=== PATIENT | male | born 1940 | race Caucasian/White ===

== ENCOUNTER 2017-02-13 09:00 | Inpatient (IN) ==
[2017-02-13] MEDS ORDERED: *HR* HYDROmorphone (PF) 1 MG/ML SYRINGE IM ONE (09:28)
[2017-02-13] MEDS ORDERED: Orphenadrine 60 MG/2 ML VIAL IM ONE (09:28)
[2017-02-13] MEDS ORDERED: 0.9 % Sodium Chloride 500 ML IVC ONE (09:30)
[2017-02-13 09:55] LABS: INR 1.1; Prothrombin Time 11.5 Seconds (9.4-12.1)
[2017-02-13 10:00] LABS: Basophils % 0.3 %; Calcium 9.2 mg/dL (8.6-10.8); Eosinophils # 0.2 K/mcL (0.0-0.6); Eosinophils % 2.3 %; Hematocrit 38.5 % (37.5-50.1); Immature Granulocytes % 0.4 % (0-4); Lymphocytes # 1.5 K/mcL (0.6-4.6); Lymphocytes % 19.7 %; Mean Corpuscular HGB Conc 33.8 g/dL (31.6-35.5); Mean Corpuscular Hemoglobin 27.4 pg (28.0-33.3); Mean Corpuscular Volume 81.2 fL (83.0-100.0); Mean Platelet Volume 10.3 fL (9.4-12.4); Monocytes # 0.4 K/mcL (0.0-1.3); Monocytes % 5.1 %; Neutrophils # 5.7 K/mcL (1.6-8.9); Platelet Count 209 K/mcL (140-400); Potassium 3.5 mEq/L (3.5-4.5); Red Blood Count 4.74 M/mcL (4.19-5.50); Red Cell Distribution Width 13.2 % (11.5-14.5); Segmented Neutrophils % 72.2 %
--- NOTE | 2017-02-13 10:00 | Emergency Department Note ---
Disposition Clinical Impression: CKD (chronic kidney disease) stage 4, GFR 15-29 ml/min, Chest pain, radiating, Thoracic back pain Disposition: Admitted As Inpatient Condition: Good Back Pain HPI - General Chief Complaint: ED Back Pain/Injury Stated Complaint: R sided thoracic pain Time Seen by Provider: 02/13/17 09:09 Source: patient Mode of arrival: ambulatory Limitations: no limitations Nursing Notes Reviewed: Yes Vital Signs Reviewed: Yes - History of Present Illness HPI Narrative: Patient presents to the ED with the chief complaint of thoracic back pain. Patient reports that he has a history of high blood pressure, stents, diabetes, enlarged aorta. Reports that for the last 6 days he has had a mid to upper thoracic back pain. States he does not really know how it started, but that it hurts in his chest and also in his back. States his chest feels tight and sharp. He reports that his back feels like "something is pulling apart." States he saw his primary care physician who gave him a "muscle relaxer" that is not helping. Reports that the pain is getting more intense and he cannot take it anymore. Worse when he takes a deep breath and when he lies down and he has been unable to sleep. Denies any fever, chills, shortness of breath, abdominal pain, nausea, vomiting, diarrhea, melena, hematochezia, hematuria, numbness or weakness in his extremities. No headache. States that he wants something strong for pain. - Related Data Home Medications Medication Instructions Recorded Confirmed Amlodipine Besylate 10 mg PO DAILY 04/02/16 02/13/17 Atorvastatin Calcium [Lipitor] 20 mg PO HS 04/02/16 02/13/17 Isosorbide MONOnitrate (24 HR) 30 mg PO DAILY 04/02/16 02/13/17 [Imdur] Metoprolol Succinate 200 mg PO BID 04/02/16 02/13/17 Sitagliptin Phos/Metformin HCl 1 each PO BID 04/02/16 02/13/17 [Janumet 50-1,000 mg Tablet] Buspirone HCl [Buspar] 7.5 mg PO BID 11/12/16 02/13/17 Clopidogrel [Plavix] 75 mg PO DAILY 11/12/16 02/13/17 Gabapentin [Neurontin] 300 mg PO HS 11/12/16 02/13/17 Lisinopril [Zestril] 40 mg PO DAILY 11/12/16 02/13/17 Tramadol HCl [Ultram] 50 mg PO BID PRN 11/12/16 02/13/17 Venlafaxine XR (24 HR) [Effexor Xr] 150 mg PO DAILY 11/12/16 02/13/17 Ferrous Sulfate [Iron] 325 mg PO TIDWM 02/13/17 02/13/17 Tizanidine HCl [Zanaflex] 1 - 2 mg PO Q8HR PRN 02/13/17 02/13/17 Allergies Allergy/AdvReac Type Severity Reaction Status Date / Time No Known Allergies Allergy Verified 11/12/16 09:10 All systems ED: reviewed and negative except as stated. Constitutional: Denies: fever Cardiovascular: Reports: chest pain. Denies: dyspnea on exertion Respiratory: Denies: dyspnea Gastrointestinal: Denies: abdominal pain Musculoskeletal: Reports: back pain. Denies: neck pain Past Medical History - Past Medical History Attestation: Yes The following information was validated with the patient. Source: patient, old records reviewed Medical history: Reports: arthritis, coronary artery disease, diabetes, hypertension, other Surgical history: Reports: orthopedic, other, other Psychiatric history: Reports: anxiety, depression - Social History Smoking Status: Never smoker Smokeless Tobacco Status: No Alcohol use: Reports: occasionally Drug use: Reports: none Physical Exam - General Limitations: no limitations General appearance: alert, in no apparent distress (but does appear uncomfortable ) - Head Head exam: atraumatic, normocephalic, normal inspection - Eye Eye exam: Present: normal appearance, PERRL, EOMI - ENT ENT exam: normal exam, normal oropharynx, mucous membranes moist - Neck Neck exam: Present: normal inspection, full ROM, trachea midline. Absent: tenderness - Chest Chest inspection: Present: normal inspection, symmetric chest wall rise. Absent : tenderness - Respiratory Respiratory exam: Present: normal lung sounds bilaterally - Cardiovascular Cardiovascular exam: Present: regular rate, normal rhythm, normal heart sounds - Abdominal Exam Abdominal exam: Present: soft, Non-Tender. Absent: tenderness, distention, guarding, rebound, rigidity - Extremities Exam Extremities exam: Present: normal inspection, full ROM. Absent: tenderness, pedal edema - Expanded Lower Extremity Exam Hip/Pelvis exam: Present: pelvis stable - Back Exam Back exam: Present: normal inspection, full ROM, other (Patient reports tenderness in the midthoracic region, but is nonreproducible on exam and states that is not the same pain that he is feeling and that he feels like it is inside of him). Absent: tenderness - Neurological Exam Neurological exam: Present: alert, oriented X3 - Psychiatric Psychiatric exam: Present: normal affect, normal mood - Skin Skin exam: Present: warm, dry, intact, normal color Course Vital Signs Temperature 97.9 F 02/13/17 09:03 Pulse Rate 63 02/13/17 09:03 Respiratory Rate 18 02/13/17 09:03 Blood Pressure 187/84 02/13/17 09:03 O2 Sat by Pulse Oximetry 99 02/13/17 09:03 Temperature 99.6 F 02/14/17 03:35 Pulse Rate 65 02/14/17 03:35 Respiratory Rate 18 02/14/17 03:35 Blood Pressure 187/90 02/14/17 03:35 O2 Sat by Pulse Oximetry 95 02/14/17 03:35 Oxygen Delivery Oxygen Delivery Room Air Back Pain/Injury - Medical Records Medical records reviewed: Yes I reviewed the patient's medical records. - Lab Data Lab results reviewed: Yes I reviewed the patient's lab results. Result diagrams: 02/14/17 00:32 02/14/17 00:32 Lab Results 02/13/17 02/13/17 02/13/17 Range/Units 09:39 09:39 09:39 WBC (4.3-11.1) K/mcL RBC (4.19-5.50) M/mcL Hgb (12.9-16.9) g/dL Hct (37.5-50.1) % MCV (83.0-100.0) fL MCH (28.0-33.3) pg MCHC (31.6-35.5) g/dL RDW (11.5-14.5) % Plt Count (140-400) K/mcL MPV (9.4-12.4) fL Immature Gran % (0-4) % Seg Neutrophils % % Lymphocytes % % Monocytes % % Eosinophils % % Basophils % % Neutrophils # (1.6-8.9) K/mcL Lymphocytes # (0.6-4.6) K/mcL Monocytes # (0.0-1.3) K/mcL Eosinophils # (0.0-0.6) K/mcL Basophils # (0.0-0.2) K/mcL PT 11.5 (9.4-12.1) Seconds INR 1.1 APTT 27.0 (26.0-36.0) Seconds Sodium (136-145) mEq/L Potassium (3.5-4.5) mEq/L Chloride (98-109) mEq/L Carbon Dioxide (19-29) mEq/L BUN (8-26) mg/dL Creatinine (0.72-1.25) mg/dL Est GFR ( Amer) (> 60) Est GFR (Non-Af Amer) (> 60) BUN/Creatinine Ratio (6-26) Glucose (70-99) mg/dL Calculated Osmolality (280-300) Calcium (8.6-10.8) mg/dL Troponin I (0-0.03) ng/mL B-Natriuretic Peptide 890 H (0-100) pg/mL Lipase 26 (8-78) Units/L 02/13/17 02/13/17 02/13/17 Range/Units 09:39 09:39 09:39 WBC 7.8 (4.3-11.1) K/mcL RBC 4.74 (4.19-5.50) M/mcL Hgb 13.0 (12.9-16.9) g/dL Hct 38.5 (37.5-50.1) % MCV 81.2 L (83.0-100.0) fL MCH 27.4 L (28.0-33.3) pg MCHC 33.8 (31.6-35.5) g/dL RDW 13.2 (11.5-14.5) % Plt Count 209 (140-400) K/mcL MPV 10.3 (9.4-12.4) fL Immature Gran % 0.4 (0-4) % Seg Neutrophils % 72.2 % Lymphocytes % 19.7 % Monocytes % 5.1 % Eosinophils % 2.3 % Basophils % 0.3 % Neutrophils # 5.7 (1.6-8.9) K/mcL Lymphocytes # 1.5 (0.6-4.6) K/mcL Monocytes # 0.4 (0.0-1.3) K/mcL Eosinophils # 0.2 (0.0-0.6) K/mcL Basophils # 0.0 (0.0-0.2) K/mcL PT (9.4-12.1) Seconds INR APTT (26.0-36.0) Seconds Sodium 136 (136-145) mEq/L Potassium 3.5 (3.5-4.5) mEq/L Chloride 101 (98-109) mEq/L Carbon Dioxide 24 (19-29) mEq/L BUN 21 (8-26) mg/dL Creatinine 2.40 H (0.72-1.25) mg/dL Est GFR ( Amer) 32 L (> 60) Est GFR (Non-Af Amer) 27 L (> 60) BUN/Creatinine Ratio 9 (6-26) Glucose 261 H (70-99) mg/dL Calculated Osmolality 294 (280-300) Calcium 9.2 (8.6-10.8) mg/dL Troponin I 0.02 (0-0.03) ng/mL B-Natriuretic Peptide (0-100) pg/mL Lipase (8-78) Units/L - Radiology Data Radiology results reviewed: Yes I reviewed the patient's radiology results. Chest X-Ray 02/13/17 09:30 IMPRESSION: No acute cardiopulmonary abnormality detected. D/ / Matt Aldrich MD / Matt Aldrich MD Interpreting Provider: Matt Aldrich MD - EKG Data EKG attestation: Yes I reviewed and interpreted this EKG. EKG results narrative: Sinus bradycardia, rate 57, IL interval 156, QRS 112, QTC 427, no acute ischemic changes, but he does have T-wave inversions laterally that are new from previous last year. Attestation Statement - Attestation Attestation: I, Tapan Hernandez, examined this patient and my medical decision-making was reviewed with the [employer]/PA/Advanced Practice Nurse/Resident Physician. I agree with the documented findings, disposition and treatment plan as described except to the extent set forth below. 76-year-old male presents to the emergency department with concerns of chest pain radiating to his back. Patient states the pain has been present for the past few days. He visited his primary care doctor who gave him a muscle relaxer which did not help the pain. Patient states he is unable find position of comfort although it is worse with movement. Patient denies palpitations or near syncopal symptoms. Initial troponin negative. CTA obtained to rule out aortic dissection which was negative however he does have a abdominal aortic Aneurysm measuring 3.8 cm however this is not likely the cause of his symptoms. Patient denies fever, chills, nausea, vomiting, diarrhea. Patient will be admitted to the hospital for further care and evaluation of his chest pain to rule out ACS.
[2017-02-13] MEDS ORDERED: 0.9 % Sodium Chloride 1,000 ML IVC ONE (10:07)
[2017-02-13] MEDS ORDERED: Furosemide 40 MG/4 ML VIAL IVP ONE (12:02)
[2017-02-13] MEDS ORDERED: Nitroglycerin 0.4 MG TAB.SUBL SL PRN (12:03)
[2017-02-13] MEDS ORDERED: Dextrose Gel 15 GM PO PRN ×2 (12:44)
[2017-02-13] MEDS ORDERED: D5% in Water 1,000 ML IVC PRN (12:44)
[2017-02-13] MEDS ORDERED: *HR* Dextrose 50 % in Water (Syg) 50 ML SYRINGE IVP PRN (12:44)
[2017-02-13] MEDS ORDERED: Aspirin Enteric Coated 325 MG Tablet PO SCH (12:45)
[2017-02-13] MEDS ORDERED: Ondansetron 4 MG/2 ML VIAL IVP PRN (13:25)
[2017-02-13] MEDS ORDERED: *HR* HYDROmorphone (PF) 1 MG/ML SYRINGE IVP PRN (13:25)
[2017-02-13] MEDS ORDERED: Naloxone 0.4 MG/ML INJ IVP PRN (13:25)
--- NOTE | 2017-02-13 13:53 | Internal Med History&Physical ---
<SaraiJustice Nunez - Last Filed: 02/13/17 14:41> Date of Encounter: 02/13/17 Time of Encounter: 12:00 Assessment and Plan (1) Chest pain, radiating Current visit: Yes Status: Acute Patient presents with acute chest pain that he states radiates to his back. He states at times his chest feels tight with radiation to back and pain becomes worse when laying flat. Mr. Pinon reports seeing his PCP who prescribed muscle relaxers for the problem which he states did not help. Patient also has a history of placement of 2 stents and an enlarged aorta. CTA of the chest/ abdomen/pelvis today shows no acute process, no acute pulmonary emboli in the central arteries, distal pulmonary arterial branches are suboptimally enhanced. There is a 3.8 cm abdominal aortic aneurysm minimally changed compared to prior study. Left hydroureteronephrosis which may be secondary to a recently passed stone or reflux related to bladder distention. Patient's previous cardiac testing was >1 year ago. Initial troponin 0.02. Will trend x2. Echocardiogram ordered. Continuous cardiac telemetry ordered. Patient to be NPO at midnight for nuclear stress testing tomorrow. TSH ordered. (2) CAD (coronary artery disease) Current visit: Yes Status: Chronic Patient presents with history of CAD and report of two stents placed >10 years ago. Patient reports current chest pain that radiates to his back. Echocardiogram ordered. Patient placed on continuous cardiac telemetry. Will continue patient's HTN and HLD medications and administer aspirin therapy daily. Continue Plavix. Qualifiers: Coronary Disease-Associated Artery/Lesion type: unspecified vessel or lesion type [place] vs. transplanted heart: [place] heart Associated angina: without angina Qualified Code(s): I25.10 - Atherosclerotic heart disease of [place] coronary artery without angina pectoris (3) Diabetes Current visit: Yes Status: Chronic Patient presents with history of chronic diabetes controlled with oral antihyperglycemic medications. Will hold patient's oral medication and administer low-dose correction insulin sliding scale and hypoglycemic protocol. Blood glucose monitoring before meals at bedtime. A1c ordered in a.m. labs. 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 Will monitor patient and vital signs and continue patient's Imdur, lisinopril, metoprolol, and amlodipine. Qualifiers: Hypertension type: essential hypertension Qualified Code(s): I10 - Essential (primary) hypertension (5) HLD (hyperlipidemia) Current visit: Yes Status: Chronic Patient presents with history of chronic hyperlipidemia. Lipid panel ordered and will continue patient's Lipitor. Qualifiers: Hyperlipidemia type: pure hypercholesterolemia Qualified Code(s): E78.00 - Pure hypercholesterolemia, unspecified; E78.0 - Pure hypercholesterolemia (6) CKD (chronic kidney disease) stage 4, GFR 15-29 ml/min Current visit: Yes Status: Chronic Patient presents with chronic kidney disease, stage IV with current GFR of 27. Will use IV fluids judiciously if warranted. Monitor I&O and daily weight. Renal diet ordered. Will hold patient's meloxicam and other NSAIDs/nephrotoxic agents. Follow-up labs ordered to monitor patient's renal status. (7) Melanoma Current visit: Yes Status: Resolved Patient presents with resolved melanoma of the lower left arm. Patient had several lumps removed from arm and is due to have stitches removed on Wednesday. Samples sent off for biopsy. Patient also has previous hx of melanoma of the left ear. Patient to follow-up with provider. 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 Patient and state that he no longer uses the drug and wants to avoid it. Will not administer oxycodone or hydrocodone for pain. (9) DVT prophylaxis Current visit: Yes Status: Acute Patient to be placed on DVT prophylaxis due to current admission protocol and bed rest status. Heparin 5,000 units SQ Q8 ordered. Internal Medicine - H&P: HPI Chief complaint: Back pain/Chest pain Admitted From: Emergency Dept Plans for Post Hospital Care: Home History of present illness: Mr. Esquivel is a 76 year old male with medical history of arthritis, CAD, diabetes controlled with oral anti-hyperglycemics, HTN, and melanoma presents from the ED with chief complaint of pain radiating from his chest to mid to upper thoracic back. He states at times his chest feels tight with radiation to back and pain becomes worse when laying flat. Mr. Pinon reports seeing his PCP who prescribed muscle relaxers for the problem which he states did not help. Patient also has a history of placement of 2 stents and an enlarged aorta. CTA of the chest/abdomen/pelvis today shows no acute process, no acute pulmonary emboli in the central arteries, distal pulmonary arterial branches are suboptimally enhanced. There is a 3.8 cm abdominal aortic aneurysm minimally changed compared to prior study. Left hydroureteronephrosis which may be secondary to a recently passed stone or reflux related to bladder distention. Patient denies recent illness, nausea, vomiting, chills, fever, abdominal pain, shortness of breath, diarrhea, constipation, unusual bleeding, numbness, weakness, headache, lightheadedness, dizziness, presyncope, or syncope. On admission to ED, patient's vital signs include temperature of 97.9F , heart rate of 59, respiratory rate of 18, BP of 138/95, SPO2 99% on room air. Abnormal labs include BNP of 890, creatinine of 2.4, GFR 27, glucose of 261. Initial troponin 0.02. On examination, patient is bradycardic lungs are clear bilaterally auscultation. There is no pedal edema present bilaterally. Patient is hemodynamically stable reports no acute distress. Information taken from patient, patient's family, chart review, medical records and previous imaging. Mr. Esquivel is at high risk for cardiac event based on current symptoms, history, and risk factors and will be placed as observation status. Time spent with patient and family > 40 minutes. Past Med Surg Social Fam HX - Past Medical History Source: patient, old records reviewed Medical history: arthritis, cancer (Melanoma), coronary artery disease, diabetes , hypertension, other Psychiatric history: anxiety, depression - Past Surgical History Surgical History: cancer surgery (Melanoma removal on left arm), orthopedic, other (Back, Right hand (finger removed)), other - Social History Smoking Status: Former smoker Packs per day: 3 cigarettes daily - Reports quitting >18 years ago Smokeless Tobacco Status: No Alcohol use: occasionally Drug use: none Current living situation: Home, With Family Activity Level: Independent ambulation Recent Out of Country Travel Within the Last 8 Weeks: No Exposure or Possible Exposure to Illness During Travel: No - Family History Father Race: Family Member Ethnicity: Non- Living Status: Age at : 60 Cause of : ID Hx Family Cardiac Disorders: Yes (ID, CAD, HTN) Mother Race: Family Member Ethnicity: Non- Living Status: Age at : 72 Cause of : Breast cancer Hx Family Cancer: Yes (Breast) Brother History Unknown: Yes Race: Family Member Ethnicity: Non- Living Status: Still Living Sister Race: Family Member Ethnicity: Non- Living Status: Still Living Hx Family Endocrine Disorder: Yes (DM) Hx Family Musculoskeletal Disorders: Yes (Arthritis) Internal Medicine - H&P: Meds Amlodipine Besylate 10 mg PO DAILY 04/02/16 [History] Atorvastatin Calcium [Lipitor] 20 mg PO HS 04/02/16 [History] Isosorbide MONOnitrate (24 HR) [Imdur] 30 mg PO DAILY 04/02/16 [History] Metoprolol Succinate 200 mg PO BID 04/02/16 [History] Sitagliptin Phos/Metformin HCl [Janumet 50-1,000 mg Tablet] 1 each PO BID [History] Buspirone HCl [Buspar] 7.5 mg PO BID 11/12/16 [History] Clopidogrel [Plavix] 75 mg PO DAILY 11/12/16 [History] Gabapentin [Neurontin] 300 mg PO HS 11/12/16 [History] Lisinopril [Zestril] 40 mg PO DAILY 11/12/16 [History] Tramadol HCl [Ultram] 50 mg PO BID PRN 11/12/16 [History] Venlafaxine XR (24 HR) [Effexor Xr] 150 mg PO DAILY 11/12/16 [History] Ferrous Sulfate [Iron] 325 mg PO TIDWM 02/13/17 [History] Tizanidine HCl [Zanaflex] 1 - 2 mg PO Q8HR PRN 02/13/17 [History] 3 Allergy/AdvReac Type Severity Reaction Status Date / Time No Known Allergies Allergy Verified 11/12/16 09:10 All Systems PM: A 10-system review of systems was performed and is negative for pertinent findings except as documented above in the HPI. - Constitutional Constitutional: no chills, no fever(s), no night sweats - EENT Eyes: no change in vision, no discharge, no pain, no photophobia Ears: no ear discharge, no ear pain, no tinnitus Nose, mouth and throat: no dysphagia, no nasal discharge, no neck pain, no sore throat - Breasts Breasts: as per HPI - Cardiovascular Cardiovascular ROS IM: as per HPI, chest pain, irregular heart rhythm ( Bradycardia) - Respiratory Respiratory: no cough, no dyspnea, no wheezing, no excessive phlegm production - Gastrointestinal Gastrointestinal: no abdominal pain, no diarrhea, no hematemesis, no hematochezia, no melena, no nausea, no vomiting - Genitourinary Genitourinary ROS male: as per HPI - Musculoskeletal Musculoskeletal ROS IM: as per HPI, back pain - Integumentary Integumentary IM: no rash, no unusual bruising - Neurological Neurological ROS: no confusion, no convulsions, no focal weakness, no numbness, no tingling, no tremor(s) - Psychiatric Psychiatric: as per HPI - Endocrine Endocrine IM: as per HPI - Hematologic/Lymphatic Hematologic/Lymphatic: no easy bruising - Allergic/Immunologic Allergic/Immunologic: as per HPI - Constitutional Vitals: Temp Pulse Resp BP Pulse Ox 97.9 F 55 18 124/86 96 02/13/17 09:03 02/13/17 12:51 02/13/17 12:57 02/13/17 12:57 02/13/17 12:51 General appearance: Present: cooperative, A&O X 3, pleasant, no acute distress, obese, answers questions appropriately - Head Head exam: Present: atraumatic, normocephalic - Eye Eye exam: Present: PERRL, conjuntiva pink, sclera anicteric Pupils: Present: PERRL - ENT ENT exam: Present: normal exam, normal external ear exam - Neck Neck exam general surgery: Present: normal inspection, supple, trachea midline. Absent: lymphadenopathy - Respiratory Respiratory exam: Present: CTAB. Absent: accessory muscle use, rales, rhonchi, wheezes - Cardiovascular Cardiovascular exam: Present: bradycardia, RRR, +S1, +S2. Absent: diastolic murmur, gallop, rubs, systolic murmur - GI/Abdominal GI/Abdominal exam: Present: normal bowel sounds, soft, no peritoneal signs. Absent: distended, tenderness - Rectal Rectal exam: Present: deferred - Additional comments: exam deferred. - Extremities Exam Extremities exam: Present: warm, radial pulses palpable and symmetrical. Absent : calf tenderness, cyanotic, pedal edema - Back Exam Back exam: Present: normal inspection - Neurological Exam Neurological exam: Present: CN II-XII intact, oriented X3, no focal deficits. Absent: pronater drift, facial droop, speech deficit - Psychiatric Psychiatric exam: Present: normal affect, normal mood - Skin Skin exam: Present: dry, erythema (Mild erythema of melanoma surgical site on left arm), intact Internal Med - H&P Results - Labs CBC & Chem 7: 02/13/17 09:39 02/13/17 09:39 - EKG Data EKG shows normal: sinus rhythm Rate: bradycardia - EKG Data Prior EKG available for review: yes Interpretation IM: suggestive of ischemia EKG comments: 02/13/17 14:08 EKG dated 03/24/16 shows sinus rhythm with voltage criteria for LVH, nonspecific T-wave abnormality.. EKG dated 02/13/17 shows sinus bradycardia with moderate intraventricular conduction delay, ST deviation and moderate T-wave abnormality. Consider lateral ischemia. - Diagnostic Studies Chest x-ray Additional comments: Impressions Chest X-Ray 02/13/17 09:30 IMPRESSION: No acute cardiopulmonary abnormality detected. D/ / Matt Aldrich MD / Matt Aldrich MD Interpreting Provider: Matt Aldrich MD Other Images Additional comments: Impressions Abdomen/Pelvis CTA 02/13/17 09:35 IMPRESSION: 1. No acute process. No acute pulmonary emboli in the central arteries. Distal pulmonary arterial branches are suboptimally enhanced. 2. There is a 3.8 cm abdominal aortic aneurysm, minimally changed compared to prior study. See recommendations below for follow-up. 3. Left hydroureteronephrosis which may be secondary to a recently passed stone or reflux related to bladder distention. RECOMMENDATIONS: Managing Abdominal Aortic Aneurysms 3.5-3.9 cm: Every 1 year. Reference: J Vasc Surg. 2009 Feb;50(4 Suppl):S2-49 D/ / Judson Murcia MD / Judson Murcia MD Interpreting Provider: Judson Murcia MD Chest CTA 02/13/17 09:35 IMPRESSION: 1. No acute process. No acute pulmonary emboli in the central arteries. Distal pulmonary arterial branches are suboptimally enhanced. 2. There is a 3.8 cm abdominal aortic aneurysm, minimally changed compared to prior study. See recommendations below for follow-up. 3. Left hydroureteronephrosis which may be secondary to a recently passed stone or reflux related to bladder distention. RECOMMENDATIONS: Managing Abdominal Aortic Aneurysms 3.5-3.9 cm: Every 1 year. Reference: J Vasc Surg. 200850(4 Suppl):S2-49 D/ / Judson Murcia MD / Judson Murcia MD Interpreting Provider: Judson Murcia MD <Luc Curry - Last Filed: 02/13/17 21:16> Date of Encounter: 02/13/17 Internal Medicine - H&P: HPI History of present illness: Mr. Esquivel is a 76 year old male All Systems PM: A 10-system review of systems was performed and is negative for pertinent findings except as documented above in the HPI. - Constitutional Vitals: Temp Pulse Resp BP Pulse Ox 98.9 F 62 12 214/93 98 02/13/17 19:15 02/13/17 19:15 02/13/17 19:15 02/13/17 19:15 02/13/17 19:15 Internal Med - H&P Results - Labs CBC & Chem 7: 02/13/17 09:39 02/13/17 09:39 Labs: Cardiac Enzymes 02/13/17 Range/Units 16:14 Troponin I 0.02 (0-0.03) ng/mL - Impressions ITS Impressions Echocardiogram 02/13/17 12:41 Impressions: LVEF 60-65%. Normal LV chamber size and function. Mild concentric left ventricular hypertrophy. Mild left ventricular diastolic dysfunction. Normal right ventricular structure and function. Moderately calcified aortic valve leaflets. Mild-moderate aortic stenosis. Mean gradient 20 mmHg. No evidence of pulmonary hypertension. Findings: Study Quality * Technically adequate exam. ECG Findings * Normal sinus rhythm. * Sinus bradycardia. Left Ventricle * LVEF 60-65%. * Normal LV chamber size and function. * Mild concentric left ventricular hypertrophy. * Mild left ventricular diastolic dysfunction. Right Ventricle * Normal right ventricular structure and function. Left Atrium * Mild to moderately dilated left atrium. Right Atrium * Normal right atrial size. Interatrial Septum * No evidence of PFO by color Doppler. Aortic Valve * Trileaflet aortic valve. * Moderately calcified aortic valve leaflets. * Trace aortic regurgitation. * Mild-moderate aortic stenosis. Mean gradient 20 mmHg. Mitral Valve * Mild posterior mitral annular calcification. * Normal mitral valve function. * No mitral regurgitation. * No mitral stenosis. Tricuspid Valve * Normal tricuspid valve structure and function. * Trace tricuspid regurgitation. * No evidence of pulmonary hypertension. Pulmonic Valve * Pulmonic valve is not well visualized. * No pulmonic regurgitation. Aorta * Normally sized aortic root. Pericardium * The pericardium appears normal. IVC * Normal IVC dimensions and inspiratory collapse. Pulmonary Artery * Normal visualized portions of the main pulmonary artery. - Attending Attestation I examined this patient and my medical decision-making was reviewed with the CORK C[employer]TER. I agree with the documented findings, disposition and treatment plan as described except to the extent set forth below. Patient is a 76-year-old male with past medical history of coronary artery disease, diabetes, hyperlipidemia and hypertension. Patient presents to the ED with complaint of chest pain and back pain. Symptoms started about 5-6 days ago. Symptoms are gradually worsening. Patient decided to come in because of worsening symptoms. CT angios the chest is negative for PE. Patient has had 3.8 cm abdominal aortic aneurysm which is minimally changed. No other acute findings. Troponin is negative. EKG shows sinus bradycardia with no acute ST- T changes. He does have uncontrolled blood pressure. No other acute complaints at this time. Heart rate 62, blood pressure 200/90, O2 sat 98%. Heart S1-S2 positive. Lungs bilateral good air entry no wheezes or crackles. Abdomen soft nontender. Extremities all pulses strong and regular. No edema.
[2017-02-13] MEDS: Pantoprazole 40 MG VIAL IVP SCH (16:22)
[2017-02-13] MEDS: Insulin LISPRO 300 UNITS/3 ML VIAL SQ SCH ×2 (17:25→20:49)
[2017-02-13] MEDS: amLODIPine 5 MG TABLET PO SCH (20:06)
[2017-02-13] MEDS: Venlafaxine XR (24 HR) 150 MG CAP.ER.24H PO SCH (20:06)
[2017-02-13] MEDS: Gabapentin 300 MG CAPSULE PO SCH (20:06)
[2017-02-13] MEDS: Metoprolol XL (24 HR) Succ 50 MG TAB.ER.24H PO SCH (20:06)
[2017-02-13] MEDS: Isosorbide MONOnitrate (24 HR) 30 MG TAB.ER.24H PO SCH (20:07)
[2017-02-13] MEDS: Lisinopril 20 MG TABLET PO SCH (20:07)
[2017-02-13] MEDS: *HR* Morphine 2 MG/ML SYRINGE IVP PRN (20:15)
[2017-02-13] MEDS: *HR* LORazepam 1 MG TABLET PO PRN (21:39)
[2017-02-13] MEDS: *HR* Heparin 5,000 UNIT/ML VIAL SQ SCH (21:42)
[2017-02-13] MEDS: traMADol 50 MG TABLET PO PRN (22:40)
[2017-02-14] MEDS: *HR* Morphine 2 MG/ML SYRINGE IVP PRN ×6 (00:40→23:16)
[2017-02-14 01:21] LABS: Basophils % 0.4 %; Eosinophils # 0.3 K/mcL (0.0-0.6); Hematocrit 37.4 % (37.5-50.1); Hemoglobin 12.8 g/dL (12.9-16.9); Immature Granulocytes % 0.2 % (0-4); Lymphocytes # 1.9 K/mcL (0.6-4.6); Lymphocytes % 21.3 %; Mean Corpuscular HGB Conc 34.2 g/dL (31.6-35.5); Mean Corpuscular Hemoglobin 27.9 pg (28.0-33.3); Mean Corpuscular Volume 81.5 fL (83.0-100.0); Mean Platelet Volume 10.2 fL (9.4-12.4); Monocytes # 0.7 K/mcL (0.0-1.3); Monocytes % 7.2 %; Neutrophils # 6.2 K/mcL (1.6-8.9); Platelet Count 191 K/mcL (140-400); Red Blood Count 4.59 M/mcL (4.19-5.50); Red Cell Distribution Width 13.4 % (11.5-14.5); Segmented Neutrophils % 67.9 %
[2017-02-14 01:27] LABS: INR 1.1; Prothrombin Time 11.9 Seconds (9.4-12.1)
[2017-02-14 01:30] LABS: Activated Partial Thrombo Time 26.8 Seconds (26.0-36.0)
[2017-02-14 01:39] LABS: Hemoglobin A1C 6.9 %
[2017-02-14 01:45] LABS: Albumin 2.5 g/dL (3.5-5.0); Albumin/Globulin Ratio 0.5 (1.1-2.2); Bilirubin,Total 0.5 mg/dL (0.2-1.2); Calcium 8.9 mg/dL (8.6-10.8); Chol/HDL Ratio 2.9 (0-4.9); Globulin 5.5 g/dL (2.4-3.5); Potassium 3.1 mEq/L (3.5-4.5)
[2017-02-14] MEDS: *HR* Heparin 5,000 UNIT/ML VIAL SQ SCH ×3 (06:31→22:07)
[2017-02-14] MEDS ORDERED: Regadenoson 0.4 MG/5 ML SYRINGE IVP ONE (07:45)
[2017-02-14] MEDS: Insulin LISPRO 300 UNITS/3 ML VIAL SQ SCH ×4 (08:30→22:11)
[2017-02-14] MEDS: Metoprolol XL (24 HR) Succ 50 MG TAB.ER.24H PO SCH ×2 (10:13→22:06)
[2017-02-14] MEDS: Isosorbide MONOnitrate (24 HR) 30 MG TAB.ER.24H PO SCH (10:13)
[2017-02-14] MEDS: Venlafaxine XR (24 HR) 150 MG CAP.ER.24H PO SCH (10:14)
[2017-02-14] MEDS: Aspirin Enteric Coated 81 MG Tablet PO SCH (10:14)
[2017-02-14] MEDS: Lisinopril 20 MG TABLET PO SCH (10:14)
[2017-02-14] MEDS: amLODIPine 5 MG TABLET PO SCH (10:14)
[2017-02-14] MEDS: Pantoprazole 40 MG VIAL IVP SCH (10:14)
--- NOTE | 2017-02-14 11:41 | Nuclear Medicine Stress Report ---
Regadenoson Nuclear Stress Name: Ike Esquivel Date of Study: 02/14/2017 Date: 1940 Ht: 72.0 in Medical Record#: [id number] Age: 76 Wt: 219.0 lb Gender: Male Order #: [id number] Location: [facility] Room: [facility] Supervising Provider: Vesta Ratliff CNP Reading Physician: Dell Maher DO, FACAbdirahman, AUDIE BERRIOS Ordering Physician: Kellen Ervin CNP Stress Technologist: Manuel Quinones, DIRECTOR CLINICAL PHARMACOLOGY, CCT Operations Administrator: José Miguel Schwartz Indications: Chest Pain Impression: Pharmacologic stress ECG is non-diagnostic for ischemia due to baseline ST-T changes. Gated EF = 48%. Large sized, moderate to severe intensity, partially reversible inferolateral and anterolateral defect consistent with ischemia (SDS 4). 3B16 nurse, Oralia, notified of findings. History: Hypertension Diabetes Hypercholesteremia Prior PCI Stress Test Summary: Stress Test Type: Pharmacologic Regadenoson 0.4mg/5ml given IV Baseline Information: Initial Heart Rate: 65 Blood Pressure: 146/90 Stress Information: Stress Time: 4 min 00 sec Test Terminated Due to (primary): Completed Protocol Maximum Blood Pressure: 116/70 Maximum Heart Rate: 84 Percent Maximum Heart Rate Achieved: 54 Double Product: 9744 METS Reached: 1 Symptoms: Nausea Nuclear Summary: SPECT myocardial perfusion imaging using Tc99m Sestamibi given intravenously was performed at rest and following cardiac stress testing. The resting images were obtained following initial dose of 11.6 mCi. Following stress an additional dose of 35.9 mCi was given at peak exercise or 30 seconds post regadenoson infusion. Medication Given: Time Medication Dose Units Route Findings: Stress Note * Resting ECG demonstrated normal sinus rhythm, ST-T changes. * No baseline arrhythmias were noted. * Pharmacologic stress ECG is non-diagnostic for ischemia due to baseline ST-T changes. * No arrhythmias were noted during stress. * Patient had no chest pain during stress. * Normal hemodynamic responses to pharmacologic stress. Study Quality * Study quality is average. Gated EF % * Gated EF = 48%. Left Ventricle * The left ventricle is not dilated. LVEDV = 97 mL. Inferior Perfusion Rest * The inferior/inferolateral segments show a mild reduction in perfusion. Inferior Perfusion Stress * The inferior/inferolateral and mid to apical anterolateral segments show a moderate to severe reduction in perfusion. TID * No evidence of transient ischemic dilatation. TID ratio = 1.03. Lung Uptake * There is no evidence of increase lung uptake. Updated by Dell Maher DO, WILL, YASH, AUDIE on 02/14/2017 11:30:57 AM electronically signed on 02/14/2017 11:34:17 AM with status of Final
[2017-02-14] MEDS: traMADol 50 MG TABLET PO PRN ×2 (17:19→22:06)
--- NOTE | 2017-02-14 18:10 | Internal Med Progress Note ---
Date of Encounter: 02/14/17 Time of Encounter: 10:30 - Assessment and plan (1) Chest pain, radiating Current Visit: Yes Status: Acute Assessment and plan: Pt presents with acute chest pain that radiates to his back. He describes it as tightness with radiation to his right shoulder blade that is worse when he is lying down. CTA chest negative for acute process. Troponins negative x3, echo with LVEF of 60-65% with mild LV hypertrophy, mild LVEDD, mild aortic stenosis. Stress test with gated EF of 48% and large sized, moderate to severe intensity , partially reversible inferolateral and anterolateral defect consistent with ischemia. Cardiology was notified and patient will be seen in the morning. He is nothing by mouth after midnight for testing in the morning. Continue needle grinder labs Cardiology in the morning Oxygen to maintain sats greater than 92% on room air. pain control as written. (2) CAD (coronary artery disease) Current Visit: Yes Status: Chronic Assessment and plan: Patient with history of 2 stents, as well as an enlarged aorta. Continue home medications and telemetry. Patient with intermittent chest pain. Qualifiers: Coronary Disease-Associated Artery/Lesion type: unspecified vessel or lesion type [place] vs. transplanted heart: [place] heart Associated angina: without angina Qualified Code(s): I25.10 - Atherosclerotic heart disease of [place] coronary artery without angina pectoris (3) Diabetes Current Visit: Yes Status: Chronic Assessment and plan: A1c 6.9. Continue Accu-Cheks before meals at bedtime, diabetic diet, sliding scale insulin. Qualifiers: Diabetes mellitus type: type 2 Diabetes mellitus complication status: with unspecified complications Diabetes mellitus assisted insulin use: without assisted use Qualified Code(s): E11.8 - Type 2 diabetes mellitus with unspecified complications (4) HTN (hypertension) Current Visit: Yes Status: Chronic Assessment and plan: Continue home medications. Qualifiers: Hypertension type: essential hypertension Qualified Code(s): I10 - Essential (primary) hypertension (5) Melanoma Current Visit: Yes Status: Resolved Assessment and plan: Patient presents with resolved melanoma of the lower left arm. Patient had several lumps removed from arm and is due to have stitches removed on Wednesday. Samples sent off for biopsy. Patient also has previous hx of melanoma of the left ear. Patient to follow-up with provider. 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 (7) HLD (hyperlipidemia) Current Visit: Yes Status: Chronic Assessment and plan: Continue Lipitor. Qualifiers: Hyperlipidemia type: pure hypercholesterolemia Qualified Code(s): E78.00 - Pure hypercholesterolemia, unspecified; E78.0 - Pure hypercholesterolemia - Time Spent With Patient less than 15 minutes - Subjective Interval history: Pt seen and assessed at bedside at 1030. Pt was sitting in the bed eating a 20 piece chicken McNuggets. Pt denies chest pain. States that hes had sharp, mid- sternal chest pain that radiates into right shoulder blade with SOB and nausea, sometimes diaphoresis. Pt denies smoking for the last 40 yrs and reports stents 10 years ago. - Constitutional Vitals: Temp Pulse Resp BP Pulse Ox 98.0 F 65 14 131/69 95 02/14/17 14:42 02/14/17 14:42 02/14/17 14:42 02/14/17 14:42 02/14/17 14:42 General appearance: Present: cooperative, A&O X 3, pleasant, no acute distress, obese, answers questions appropriately - Head Head exam: Present: atraumatic, normal inspection, normocephalic - Eye Eye exam: Present: conjuntiva pink, sclera anicteric - Neck Neck exam general surgery: Present: supple, trachea midline. Absent: lymphadenopathy, tenderness - Respiratory Respiratory exam: Present: decreased breath sounds, CTAB. Absent: accessory muscle use, rales, rhonchi, wheezes - Cardiovascular Cardiovascular exam: Present: RRR, +S1, +S2. Absent: diastolic murmur, gallop, rubs, systolic murmur - GI/Abdominal GI/Abdominal exam: Present: normal bowel sounds, soft. Absent: distended, hepatomegaly, tenderness - Extremities Exam Extremities exam: Present: normal capillary refill, warm, radial pulses palpable and symmetrical. Absent: calf tenderness, cyanotic, pedal edema - Neurological Exam Neurological exam: Present: alert, oriented X3. Absent: facial droop, speech deficit - Skin Skin exam: Present: dry, intact, normal color, warm. Absent: rash Internal Medicine: Result - Labs CBC & Chem 7: 02/14/17 00:32 02/14/17 00:32 Labs: Short CBC 02/14/17 Range/Units 00:32 WBC 9.1 (4.3-11.1) K/mcL Hgb 12.8 L (12.9-16.9) g/dL Hct 37.4 L (37.5-50.1) % Plt Count 191 (140-400) K/mcL Neutrophils # 6.2 (1.6-8.9) K/mcL BMP 02/14/17 00:32 Sodium 136 Potassium 3.1 L Chloride 102 Carbon Dioxide 26 BUN 18 Creatinine 2.22 H Glucose 146 H Calcium 8.9 Cardiac Enzymes 02/13/17 Range/Units 20:59 Troponin I 0.02 (0-0.03) ng/mL Liver Function 02/14/17 Range/Units 00:32 Total Bilirubin 0.5 (0.2-1.2) mg/dL AST 26 (5-34) Units/L ALT 20 (0-55) Units/L Alkaline Phosphatase 158 H (38-126) Units/L Albumin 2.5 L (3.5-5.0) g/dL - ABG Interpretation ABG results: PT/INR, D-dimer PT 11.9 Seconds (9.4-12.1) 02/14/17 00:32 Consult Discharge Plan - Plan Referrals: Jesús Ortiz MD [Primary Care Provider] - (We have requested a follow up appointment with Dr Ortiz. The office will call you at home with an appointment date and time.)
[2017-02-14] MEDS: 0.9 % Sodium Chloride 1,000 ML IVC SCH (19:36)
[2017-02-14] MEDS: Gabapentin 300 MG CAPSULE PO SCH (22:06)
[2017-02-14] MEDS: *HR* LORazepam 1 MG TABLET PO PRN (23:16)
[2017-02-15] MEDS: *HR* Morphine 2 MG/ML SYRINGE IVP PRN ×4 (03:12→23:16)
[2017-02-15 03:23] LABS: Basophils % 0.6 %; Eosinophils # 0.3 K/mcL (0.0-0.6); Eosinophils % 4.6 %; Hematocrit 34.9 % (37.5-50.1); Hemoglobin 11.7 g/dL (12.9-16.9); Immature Granulocytes % 0.3 % (0-4); Lymphocytes # 1.7 K/mcL (0.6-4.6); Lymphocytes % 24.4 %; Mean Corpuscular HGB Conc 33.5 g/dL (31.6-35.5); Mean Corpuscular Hemoglobin 27.7 pg (28.0-33.3); Mean Corpuscular Volume 82.5 fL (83.0-100.0); Monocytes # 0.6 K/mcL (0.0-1.3); Monocytes % 8.1 %; Neutrophils # 4.3 K/mcL (1.6-8.9); Platelet Count 179 K/mcL (140-400); Red Blood Count 4.23 M/mcL (4.19-5.50); Red Cell Distribution Width 13.3 % (11.5-14.5)
[2017-02-15 03:35] LABS: Calcium 8.3 mg/dL (8.6-10.8); Potassium 3.4 mEq/L (3.5-4.5)
[2017-02-15] MEDS: *HR* Heparin 5,000 UNIT/ML VIAL SQ SCH ×3 (05:18→20:24)
[2017-02-15] MEDS ORDERED: Haloperidol Lactate 5 MG/ML VIAL IM ONE (05:32)
[2017-02-15] MEDS ORDERED: Haloperidol Lactate 5 MG/ML VIAL ONE (05:34)
[2017-02-15] MEDS: Aspirin Enteric Coated 81 MG Tablet PO SCH (09:08)
[2017-02-15] MEDS: Venlafaxine XR (24 HR) 150 MG CAP.ER.24H PO SCH (09:08)
[2017-02-15] MEDS: Metoprolol XL (24 HR) Succ 50 MG TAB.ER.24H PO SCH ×2 (09:09→20:24)
[2017-02-15] MEDS: Isosorbide MONOnitrate (24 HR) 30 MG TAB.ER.24H PO SCH (09:09)
[2017-02-15] MEDS: Lisinopril 20 MG TABLET PO SCH (09:09)
[2017-02-15] MEDS: amLODIPine 5 MG TABLET PO SCH (09:09)
[2017-02-15] MEDS: Pantoprazole 40 MG VIAL IVP SCH (09:11)
[2017-02-15] MEDS: Insulin LISPRO 300 UNITS/3 ML VIAL SQ SCH ×4 (09:11→22:19)
--- NOTE | 2017-02-15 11:16 | Cardiology Consult Note ---
<Vesta Ratliff Yessi - Last Filed: 02/15/17 12:30> Date of Encounter: 02/15/17 Time of Encounter: 11:00 Assessment and Plan (1) Abnormal stress test Current Visit: Yes Status: Acute Presented with atypical chest pain symptoms. Troponin negative x3. Chest pain free upon exam. Non-exercise nuclear stress shows large, moderate to severe intensity, partially reversible perfusion defect involving the inferolateral and anterolateral wall. TTE shows preserved LVEF with normal wall motion. Unfortunately, renal function continues to decline. Nephrology consulted and have recommended against LHC due to BAYLEE and further renal dysfunction. Recommend medical therapy; continue asa, statin, betablocker, and plavix. Will increase nitrates and add hydralazine to improve BP control. Discussed with patient who is agreeable. Can consider addition of [place] in future with chest pain/discomfort. Will arrange for close outpatient follow-up with Cardiology. (2) CAD (coronary artery disease) Current Visit: Yes Status: Chronic Plan as above. Hx of remote PCI in 2007 with reported x2 JANETT. Asa, statin, betablocker. Qualifiers: Coronary Disease-Associated Artery/Lesion type: unspecified vessel or lesion type [place] vs. transplanted heart: [place] heart Associated angina: with stable angina Qualified Code(s): I25.118 - Atherosclerotic heart disease of [place] coronary artery with other forms of angina pectoris (3) HTN (hypertension) Current Visit: Yes Status: Chronic Has been uncontrolled since admission. On max doses of toprol, lisinopril, and amlodipine. Will increase long-acting nitrate today; hydralazine added. Will defer further recommendations to Nephrology and Primary service. Qualifiers: Hypertension type: essential hypertension Qualified Code(s): I10 - Essential (primary) hypertension (4) Chronic kidney disease, stage III (moderate) Current Visit: Yes Status: Acute Baseline appears to be 1.4-1.6; SCr noted to worsen this AM despite gentle IV hydration overnight. Given abnormal stress test with possible future ischemic evaluation, recommend Nephrology consult. Reviewed Dr. Horn's recommendations, would recommend against LHC now due to worsening renal dysfunction. Discussion w patient/family: The assessment and plan as outlined above was discussed with the patient and/or family members who expressed understanding and agreement. All questions were answered. Thank you for involving us in the care of your patient. Please call with any questions. The patient will be discussed and reviewed with Dr. Bah; changes to be made accordingly. History of Present Illness Consult date: 02/14/17 Requesting physician: Kellen Ervin Consult reason: Abnormal stress test Chief complaint: Chest pain History of present illness: Mr. Esquivel is a 76 year old male with PMHx significant for CAD s/p remote PCI ( x2 JANETT in 2007), HLD, HTN, DMII, CKD-3, and chronic pain who presented to the ED with reported "pain all over." He reports chest pain that radiates to back that worsens when he lays flat. KURTIS was negative. Nuclear stress was ordered and found to be abnormal which prompted Cardiology consult. He is noted to have LATIA on CKD vs. worsening CKD-3, given abnormal stress test, Nephrology consult recommended. Blood pressure has noted to be uncontrolled since admission. Testing as inpatient: TTE 02/13/17: LVEF 60-65%, mild LVDD, mild-moderate Non-exercise nuclear stress 02/14/17: large, moderate to severe intensity, partially reversible defect involving the inferolateral and anterolateral lim. Past Med Surg Social Fam HX - Past Medical History Attestation: Yes The following information was validated with the patient. Source: patient, old records reviewed Medical history: arthritis, coronary artery disease, diabetes, hyperlipidemia, hypertension, renal disease Psychiatric history: anxiety, depression - Past Surgical History Surgical History: angioplasty/stent, orthopedic, other - Social History Smoking Status: Former smoker Packs per day: 3 cigarettes daily - Reports quitting >18 years ago Smokeless Tobacco Status: No Alcohol use: occasionally Drug use: none - Family History Father Race: Family Member Ethnicity: Non- Living Status: Age at : 60 Cause of : LA Hx Family Cardiac Disorders: Yes ([place], CAD, HTN) Mother Race: Family Member Ethnicity: Non- Living Status: Age at : 72 Cause of : Breast cancer Hx Family Cancer: Yes (Breast) Brother History Unknown: Yes Race: Family Member Ethnicity: Non- Living Status: Still Living Sister Race: Family Member Ethnicity: Non- Living Status: Still Living Hx Family Endocrine Disorder: Yes (DM) Hx Family Musculoskeletal Disorders: Yes (Arthritis) Medications and Allergies Amlodipine Besylate 10 mg PO DAILY 04/02/16 [History] Atorvastatin Calcium [Lipitor] 20 mg PO HS 04/02/16 [History] Isosorbide MONOnitrate (24 HR) [Imdur] 30 mg PO DAILY 04/02/16 [History] Metoprolol Succinate 200 mg PO BID 04/02/16 [History] Buspirone HCl [Buspar] 7.5 mg PO BID 11/12/16 [History] Clopidogrel [Plavix] 75 mg PO DAILY 11/12/16 [History] Gabapentin [Neurontin] 300 mg PO HS 11/12/16 [History] Tramadol HCl [Ultram] 50 mg PO BID PRN 11/12/16 [History] Venlafaxine XR (24 HR) [Effexor Xr] 150 mg PO DAILY 11/12/16 [History] Ferrous Sulfate [Iron] 325 mg PO DAILY 02/13/17 [History] Tizanidine HCl [Zanaflex] 1 - 2 mg PO Q8HR PRN 02/13/17 [History] Cyanocobalamin (Vitamin B-12) [Vitamin B-12] 1,000 mcg SL DAILY 02/14/17 [ History] Trazodone HCl 100 mg PO HS 02/14/17 [History] 3 Allergy/AdvReac Type Severity Reaction Status Date / Time No Known Allergies Allergy Verified 02/14/17 13:39 All Systems Review: A 10-system review of systems was performed and is negative for pertinent findings except as documented above in the HPI. - Cardiovascular Cardiovascular: as per HPI Physical Examination Vital Signs, Last 4 Hours Temp Pulse Resp BP Pulse Ox 02/15/17 08:25 97.7 F 57 16 185/89 96 General: Conversant, No Apparent Distress HEENT: Atraumatic, Normocephaly, Mucus Membranes Moist Neck: No JVD, Normal carotid pulses Cardiac: Reg Rate and Rhythm, Normal S1 and S2, No Murmur Lungs: Normal Breath Sounds, No Wheeze, Rales, Rhonchi Neuro: Alert and responsive, No focal deficits noted Abdomen: Soft, Non-Tender Skin: No rashes noted on visualized skin Musculoskeletal: No Chest Wall Tenderness Extremities: No Clubbing, No Cyanosis, No Edema, Normal Pulses Results 02/15/17 02:44 02/15/17 02:44 Lab Results 02/15/17 02/15/17 02:44 02:44 WBC 7.0 Hgb 11.7 L Hct 34.9 L Plt Count 179 Sodium 135 L Potassium 3.4 L Chloride 104 Carbon Dioxide 23 BUN 27 H Creatinine 2.52 H Glucose 222 H Calcium 8.3 L - Imaging and Cardiology Stress Test: report reviewed Echo: report reviewed Other Results: 12 hour tele: avg HR=61 SR. Artifact noted. - EKG Interpretation EKG results cardiology: personally reviewed Consult Discharge Plan - Plan Referrals: Jesús Ortiz MD [Primary Care Provider] - 02/19/17 11:00 am () <Jo Bah - Last Filed: 02/15/17 16:23> Date of Encounter: 02/15/17 Assessment and Plan Discussion w patient/family: The assessment and plan as outlined above was discussed with the patient and/or family members who expressed understanding and agreement. All questions were answered. Thank you for involving us in the care of your patient. Please call with any questions. History of Present Illness History of present illness: Mr. Esquivel is a 76 year old male All Systems Review: A 10-system review of systems was performed and is negative for pertinent findings except as documented above in the HPI. Physical Examination Vital Signs, Last 4 Hours Temp Pulse Resp BP Pulse Ox 02/15/17 15:19 59 16 178/81 95 02/15/17 15:07 98.3 F 59 16 178/81 95 Results 02/15/17 02:44 02/15/17 02:44 - Attending Attestation I examined this patient and my medical decision-making was reviewed with the Resident Physician. I agree with the documented findings, disposition and treatment plan. Mr. Esquivel presented with atypical symptoms and had a stress test which was reported as abnormal. We have recommended proceeding with a C. However, his renal function is declining. After lengthy discussion with the patient, and with Nephrology input, the patient has declined cath and opted for medical management. We have made changes to antihypertensives and increased statin. Continue antiplatelet therapy. Overall, EF is normal. Recommend outpatient cardiology follow up. Will sign off. Please call with questions.
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
--- NOTE | 2017-02-15 11:57 | Nephrology Consult Note ---
Date of Encounter: 02/15/17 Time of Encounter: 11:54 Assessment and Plan (1) Chronic kidney disease, stage III (moderate) Current Visit: Yes Status: Acute Patient has a clinical picture of stage III chronic kidney disease with significant proteinuria in the setting of type 2 diabetes and long-term use of ibuprofen. His renal function has worsened between mid to late 2015 through July 2016. He now presents with even worse renal function. Currently it is unclear if this is related to progression of his chronic kidney disease. He certainly could have a component of acute kidney injury given the fact that he had IV contrast exposure on February 13. He also has mild left hydronephrosis on the CT scan in the setting of a history of recurrent bladder neck contracture. At this point time I would not proceed with a cardiac catheter until the patient's serum creatinine stabilizes. If he has acute kidney injury related to contrast nephropathy his renal function may worsen before it starts to improve. It also may be worthwhile to consider urologic consultation because of the left hydronephrosis in the setting of recurrent bladder neck contracture. Postvoid residual bladder scan would also be appropriate. We will follow the patient's renal function. Obviously nephrotoxins need to be avoided including all nonsteroidal anti-inflammatory agents. (2) Chest pain, radiating Current Visit: Yes Status: Acute (3) CAD (coronary artery disease) Current Visit: Yes Status: Chronic Qualifiers: Coronary Disease-Associated Artery/Lesion type: unspecified vessel or lesion type [place] vs. transplanted heart: [place] heart Associated angina: with stable angina Qualified Code(s): I25.118 - Atherosclerotic heart disease of [place] coronary artery with other forms of angina pectoris (4) Diabetes Current Visit: Yes Status: Chronic Qualifiers: Diabetes mellitus type: type 2 Diabetes mellitus complication status: with kidney complications Diabetes mellitus complication detail: with microalbuminuria Diabetes mellitus custodial insulin use: without custodial use Qualified Code(s): E11.29 - Type 2 diabetes mellitus with other diabetic kidney complication; R80.9 - Proteinuria, unspecified (5) HTN (hypertension) Current Visit: Yes Status: Chronic Qualifiers: Hypertension type: essential hypertension Qualified Code(s): I10 - Essential (primary) hypertension History of Present Illness - History of Present Illness This is a 76-year-old male who was admitted several days ago with a chief complaint of chest pain radiating to his back. He was noted to have a creatinine of 2.40. He was placed on IV fluids his creatinine has continued to increase currently to a level of 2.52 with GFR of 25. Patient had a creatinine of 1.47 in October 2015, 1.36 in February 2016, and 1.78 in July 2016, patient has had issues with his bladder including recurrent bladder neck contractions. He has required dilatation the last one on 11/12/2016. Patient does not follow with a hammer repairer. He does follow with Dr. Archibald. Neck And the patient was admitted to the hospital he underwent a CT angiogram. This confirmed the presence of an abdominal aortic aneurysm 3.7 x 3.8 cm. There was no thoracic aortic aneurysm reported. He did have mild left hydronephrosis noted. The patient's discharge summary from back in October shows that he was on meloxicam. The patient denies this. He says he has been taking prescription strength Motrin 3 times daily for the past several years. He was told by his primary care provider to discontinue it about a month ago because he was swelling. Patient has a history of diabetes for the past 5-6 years as well as a history of hypertension for the same timeframe. Previous urinalysis shows significant proteinuria. UA showed protein level of 300 mg/dL. Patient denies any difficulty emptying his bladder since October when he had his last procedure done. He denies any history of hematuria. Denies any history of renal stones. He was not aware that he had underlying chronic kidney disease. Past Med Surg Social Fam HX - Past Medical History Medical history: arthritis, coronary artery disease, diabetes, hypertension, other Psychiatric history: anxiety, depression - Past Surgical History Surgical History: orthopedic, other, other - Social History Smoking Status: Never smoker Packs per day: 3 cigarettes daily - Reports quitting >18 years ago Smokeless Tobacco Status: No Alcohol use: occasionally Drug use: none - Family History Father Race: Family Member Ethnicity: Non- Living Status: Age at : 60 Cause of : MD Hx Family Cardiac Disorders: Yes (MD, CAD, HTN) Mother Race: Family Member Ethnicity: Non- Living Status: Age at : 72 Cause of : Breast cancer Hx Family Cancer: Yes (Breast) Brother History Unknown: Yes Race: Family Member Ethnicity: Non- Living Status: Still Living Sister Race: Family Member Ethnicity: Non- Living Status: Still Living Hx Family Endocrine Disorder: Yes (DM) Hx Family Musculoskeletal Disorders: Yes (Arthritis) Medications and Allergies Amlodipine Besylate 10 mg PO DAILY 04/02/16 [History] Atorvastatin Calcium [Lipitor] 20 mg PO HS 04/02/16 [History] Isosorbide MONOnitrate (24 HR) [Imdur] 30 mg PO DAILY 04/02/16 [History] Metoprolol Succinate 200 mg PO BID 04/02/16 [History] Buspirone HCl [Buspar] 7.5 mg PO BID 11/12/16 [History] Clopidogrel [Plavix] 75 mg PO DAILY 11/12/16 [History] Gabapentin [Neurontin] 300 mg PO HS 11/12/16 [History] Tramadol HCl [Ultram] 50 mg PO BID PRN 11/12/16 [History] Venlafaxine XR (24 HR) [Effexor Xr] 150 mg PO DAILY 11/12/16 [History] Ferrous Sulfate [Iron] 325 mg PO DAILY 02/13/17 [History] Tizanidine HCl [Zanaflex] 1 - 2 mg PO Q8HR PRN 02/13/17 [History] Cyanocobalamin (Vitamin B-12) [Vitamin B-12] 1,000 mcg SL DAILY 02/14/17 [ History] Trazodone HCl 100 mg PO HS 02/14/17 [History] 3 Allergy/AdvReac Type Severity Reaction Status Date / Time No Known Allergies Allergy Verified 02/14/17 13:39 Review of Systems Constitutional: as per HPI Nose, mouth and throat: no dizziness, no headache(s) Cardiovascular: as per HPI, chest pain, chest pain at rest, chest pain with activity, dyspnea on exertion, edema Respiratory: dyspnea on exertion Gastrointestinal: no abdominal pain, no change in bowel habits Genitourinary Male: as per HPI, difficulty urinating Musculoskeletal: no muscle weakness, no numbness Integumentary: no hirsutism, no striae Neurological: as per HPI Psychiatric: no depression, no difficulty concentrating Endocrine: as per HPI Hematologic/Lymphatic: no easy bruising, no lymphadenopathy Exam - Vital Signs Vital signs: Initial Vital Signs Temp Pulse Resp BP Pulse Ox 97.9 F 63 18 187/84 99 02/13/17 09:03 02/13/17 09:03 02/13/17 09:03 02/13/17 09:03 02/13/17 09:03 Vital Signs - Last 8 Hours Temp Pulse Resp BP Pulse Ox 02/15/17 08:25 97.7 F 57 16 185/89 96 Intake and Output 02/14/17 02/15/17 02/15/17 23:59 07:59 15:59 Intake Total 800 / 800 Output Total 700 / 700 650 / 650 Balance 800 / 800 -700 / -700 -650 / -650 Intake: IV Fluids 800 / 800 0.9 % Sodium Chloride 1, 800 / 800 000 ML @ 50 mls/hr IVC . Q20H [facility] Rx#:[id number] Output: Catheter 700 / 700 650 / 650 Other: Meal NPO for breakfast Weight 94.529 kg Blood Glucose* 111 160 Patient Weight 02/15/17 23:59 Weight 94.529 kg - General Appearance Exam: Patient is alert and oriented. He is in no acute distress. Neck is supple. Lungs essentially clear to auscultation. Heart regular rate and rhythm. Abdomen shows normal bowel sounds bruits masses gamma-glutamyl tenderness. No peripheral edema. Results - Lab Results 02/15/17 02:44 02/15/17 02:44 Most recent lab results Calcium 8.3 mg/dL (8.6-10.8) L 02/15/17 02:44 Magnesium 2.0 mg/dL (1.6-2.6) 02/14/17 00:32 Consult Discharge Plan - Plan Referrals: Jesús Ortiz MD [Primary Care Provider] - 02/19/17 11:00 am ()
[2017-02-15] MEDS: hydrALAZINE 25 MG TABLET PO SCH ×3 (13:23→23:29)
[2017-02-15] MEDS: traMADol 50 MG TABLET PO PRN ×2 (16:33→20:23)
[2017-02-15] MEDS: 0.9 % Sodium Chloride 1,000 ML IVC SCH (16:33)
[2017-02-15] MEDS: Gabapentin 300 MG CAPSULE PO SCH (20:23)
--- NOTE | 2017-02-15 21:44 | Electrocardiograph Report ---
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
--- NOTE | 2017-02-15 21:44 | Electrocardiograph Report ---
[address] [address] Test Date: 2017-02-13 Pat Name: Ike Esquivel Department: 105 Room: 3B16 Gender: Scoop Driver: : 1940 Requested By: Kellen Ervin Order Number: [id number] Reading MD: Carl Rosas MD Measurements Intervals [place] Rate: 57 P: 28 OK: 156 QRS: -1 QRSD: 112 T: -14 QT: 433 QTc: 427 Interpretive Statements SINUS BRADYCARDIA BASELINE ARTIFACT Electronically Signed On 02-15-2017 21:42:43 EDT by Carl Rosas MD
[2017-02-16] MEDS: *HR* Heparin 5,000 UNIT/ML VIAL SQ SCH ×3 (05:01→20:34)
[2017-02-16] MEDS: *HR* Morphine 2 MG/ML SYRINGE IVP PRN ×3 (05:02→20:34)
[2017-02-16 07:02] LABS: Basophils % 0.8 %; Eosinophils # 0.3 K/mcL (0.0-0.6); Eosinophils % 6.1 %; Hematocrit 36.2 % (37.5-50.1); Hemoglobin 12.2 g/dL (12.9-16.9); Immature Granulocytes % 0.2 % (0-4); Lymphocytes # 1.6 K/mcL (0.6-4.6); Lymphocytes % 32.8 %; Mean Corpuscular HGB Conc 33.7 g/dL (31.6-35.5); Mean Corpuscular Hemoglobin 27.6 pg (28.0-33.3); Mean Corpuscular Volume 81.9 fL (83.0-100.0); Monocytes # 0.4 K/mcL (0.0-1.3); Monocytes % 8.8 %; Neutrophils # 2.4 K/mcL (1.6-8.9); Platelet Count 144 K/mcL (140-400); Red Blood Count 4.42 M/mcL (4.19-5.50); Red Cell Distribution Width 13.5 % (11.5-14.5); Segmented Neutrophils % 51.3 %
[2017-02-16 07:21] LABS: Albumin 2.3 g/dL (3.5-5.0); Albumin/Globulin Ratio 0.5 (1.1-2.2); Bilirubin,Total 0.3 mg/dL (0.2-1.2); Calcium 8.3 mg/dL (8.6-10.8); Globulin 4.7 g/dL (2.4-3.5); Potassium 3.2 mEq/L (3.5-4.5)
[2017-02-16] MEDS: Insulin LISPRO 300 UNITS/3 ML VIAL SQ SCH ×4 (08:09→20:52)
[2017-02-16] MEDS: amLODIPine 5 MG TABLET PO SCH (08:12)
[2017-02-16] MEDS: Isosorbide MONOnitrate (24 HR) 30 MG TAB.ER.24H PO SCH (08:12)
[2017-02-16] MEDS: Venlafaxine XR (24 HR) 150 MG CAP.ER.24H PO SCH (08:12)
[2017-02-16] MEDS: traMADol 50 MG TABLET PO PRN ×2 (08:12→14:37)
[2017-02-16] MEDS: Lisinopril 20 MG TABLET PO SCH (08:12)
[2017-02-16] MEDS: Pantoprazole 40 MG VIAL IVP SCH (08:12)
[2017-02-16] MEDS: Aspirin Enteric Coated 81 MG Tablet PO SCH (08:13)
[2017-02-16] MEDS: hydrALAZINE 25 MG TABLET PO SCH ×2 (08:13→14:36)
[2017-02-16] MEDS: Metoprolol XL (24 HR) Succ 50 MG TAB.ER.24H PO SCH ×2 (08:18→20:33)
[2017-02-16] MEDS ORDERED: Potassium Chloride Elixir 20 MEQ/15 ML UDC PO ONE (09:45)
[2017-02-16] MEDS: 0.9 % Sodium Chloride 1,000 ML IVC SCH (10:47)
--- NOTE | 2017-02-16 11:10 | Nephrology Progress Note ---
Date of Encounter: 02/16/17 Time of Encounter: 09:30 - Assessment and Plan (1) LAITA (acute kidney injury) Current Visit: Yes Status: Acute clinical picture of stage III chronic kidney disease with significant proteinuria in the setting of type 2 diabetes and long-term use of ibuprofen and history of recurrent bladder neck contracture. Baseline creat 1.47-1.78. Renal fct improving 2.28. Documented urine output 2650 cc. Continue gentle IV hydration. Avoid nephrotoxins. Recommend Urology consult; left hydronephrosis in the setting of recurrent bladder neck contracture. Will continue to monitor (2) CKD (chronic kidney disease) stage 4, GFR 15-29 ml/min Current Visit: Yes Status: Chronic Subjective Interval history: Sitting up in bed. States still has left shoulder, back pain that is improved and is reproducible. No new complaints. Objective - Vital Signs Vital signs: Vital Signs Temp Pulse Resp BP Pulse Ox 02/16/17 07:43 98.0 F 64 18 185/67 96 02/16/17 03:19 98.0 F 62 12 191/95 94 02/15/17 23:29 98.5 F 61 16 180/82 97 02/15/17 18:41 98.1 F 65 12 170/92 97 02/15/17 15:19 59 16 178/81 95 02/15/17 15:07 98.3 F 59 16 178/81 95 Intake and Output 02/15/17 02/16/17 02/16/17 23:59 07:59 15:59 Intake Total 1120 / 1120 Output Total 1300 / 1300 800 / 800 Balance -1300 / -1300 -800 / -800 1120 / 1120 Intake: IV Fluids 1000 / 1000 0.9 % Sodium Chloride 1, 1000 / 1000 000 ML @ 50 mls/hr IVC . Q20H [facility] Rx#:[id number] Oral 120 / 120 Output: Urine 0 / 0 450 / 450 Catheter 1300 / 1300 350 / 350 Other: Meal Breakfast Percent of Meal Consumed 100% Blood Glucose* 101 125 - General Appearance General appearance: Present: well-developed, well-nourished, appears started age EENT: Present: mucous membranes moist Neck: Present: no JVD Respiratory: Present: clear Cardiology: Present: no edema, regular rate, regular rhythm Gastrointestinal: Present: normoactive bowel sounds Integumentary: Present: warm and dry Neurologic: Present: alert and oriented x3 Psychiatric: Present: mood/affect appropriate, cooperative - Lab 02/16/17 06:36 02/16/17 06:36 Most recent lab results Calcium 8.3 mg/dL (8.6-10.8) L 02/16/17 06:36 Phosphorus 3.0 mg/dL (2.3-4.7) 02/15/17 12:44 Magnesium 2.0 mg/dL (1.6-2.6) 02/14/17 00:32 - VTE Documentation of Mechanical Device: Graduated compression elastic hosiery Consult Discharge Plan - Plan Referrals: Jesús Ortiz MD [Primary Care Provider] - 02/19/17 11:00 am ()
--- NOTE | 2017-02-16 14:53 | Internal Med Progress Note ---
<Kerwin Dean - Last Filed: 02/16/17 16:03> Date of Encounter: 02/16/17 Time of Encounter: 10:30 - Assessment and plan (1) Chest pain, radiating Current Visit: Yes Status: Acute Assessment and plan: Pt presents with acute chest pain that radiates to his back. He describes it as tightness with radiation to his right shoulder blade that is worse when he is lying down. Denies chest pain today, states that he still has the pain between shoulder blades. CTA chest negative for acute process. Troponins negative x3, echo with LVEF of 60-65% with mild LV hypertrophy, mild LVEDD, mild aortic stenosis. Stress test with gated EF of 48% and large sized, moderate to severe intensity, partially reversible inferolateral and anterolateral defect consistent with ischemia. Cardiology has consulted and requested consultation by nephrology for worsening renal function. Spoke to Dr. Horn from nephrology today, although patient's creatinine has been downtrending, he is still not a good candidate for C. 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 Nephro recommends gentle hydration and monitoring renal function. Continue cyber security architect labs Cardiology on board, nephrology pending. Oxygen to maintain sats greater than 92% on room air. pain control as written. (2) CAD (coronary artery disease) Current Visit: Yes Status: Chronic Assessment and plan: Patient with history of 2 stents, as well as an enlarged aorta. Continue home medications and telemetry. Continue BB, Imdur, Lipitor, and ASA. Continue telemetry. Qualifiers: Coronary Disease-Associated Artery/Lesion type: unspecified vessel or lesion type [place] vs. transplanted heart: [place] heart Associated angina: with stable angina Qualified Code(s): I25.118 - Atherosclerotic heart disease of [place] coronary artery with other forms of angina pectoris (3) CKD (chronic kidney disease) stage 4, GFR 15-29 ml/min Current Visit: Yes Status: Chronic Assessment and plan: Significant prtein uria in the setting of diabetes type 2 and long-term use of ibuprofen. Possible acute kidney injury given the fact that he had IV contrast exposure on February 13. He also has mild left hydronephrosis on the CT scan in the setting of a history of recurrent bladder neck contracture. - Continue gentle IV fluids. - Avoid nephrotoxic medications. - Monitor renal function. (4) Diabetes Current Visit: Yes Status: Chronic Assessment and plan: A1c 6.9. Continue Accu-Cheks before meals at bedtime, diabetic diet, sliding scale insulin. Qualifiers: Diabetes mellitus type: type 2 Diabetes mellitus complication status: with kidney complications Diabetes mellitus complication detail: with microalbuminuria Diabetes mellitus continuous churn buttermaker insulin use: without continuous churn buttermaker use Qualified Code(s): E11.29 - Type 2 diabetes mellitus with other diabetic kidney complication; R80.9 - Proteinuria, unspecified (5) HLD (hyperlipidemia) Current Visit: Yes Status: Chronic Assessment and plan: Chronic. Continue Lipitor. Qualifiers: Hyperlipidemia type: pure hypercholesterolemia Qualified Code(s): E78.00 - Pure hypercholesterolemia, unspecified; E78.0 - Pure hypercholesterolemia (6) HTN (hypertension) Current Visit: Yes Status: Chronic Assessment and plan: Continue home medications. Pt bp at 136/73. l. Hydralazine prn SBP. 180, DBP > 100mmHg. Qualifiers: Hypertension type: essential hypertension Qualified Code(s): I10 - Essential (primary) hypertension (7) Melanoma Current Visit: Yes Status: Resolved Assessment and plan: Patient presents with resolved melanoma of the lower left arm. Patient had several lumps removed from arm and is due to have stitches removed on Wednesday. Samples sent off for biopsy. Patient also has previous hx of melanoma of the left ear. Patient to follow-up with provider. 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 - Given 40 meq KCL. - Subjective Interval history: Mr. Esquivel is a 76 year old male with medical history of arthritis, CAD, diabetes controlled with oral anti-hyperglycemics, HTN, and melanoma presented from the ED with chief complaint of pain radiating from his chest to mid to upper thoracic back. When seen today, patient says that he still has L scapular pain and rates it as an 8/10. He says that the pain has improved since admission. He denies any chest pain, shortness of breath, coughing, fever, chills, nausea, vomiting, headaches, dizziness, or syncope. - Constitutional Vitals: Temp Pulse Resp BP Pulse Ox 98.3 F 61 18 136/73 97 02/16/17 11:09 02/16/17 11:09 02/16/17 11:09 02/16/17 11:02/16/17 11:09 General appearance: Present: cooperative, A&O X 3, pleasant, no acute distress, obese - Respiratory Respiratory exam: Present: CTAB. Absent: respiratory distress, rhonchi, wheezes , tachypnea - Cardiovascular Cardiovascular exam: Present: systolic murmur (Systolic murmur in L 3rd intercostal space made better with valsalva. ) - GI/Abdominal GI/Abdominal exam: Present: normal bowel sounds, soft. Absent: distended, guarding, rebound, rigid, tenderness Internal Medicine: Result - Labs CBC & Chem 7: 02/16/17 06:36 02/16/17 06:36 Labs: Short CBC 02/16/17 Range/Units 06:36 WBC 4.8 (4.3-11.1) K/mcL Hgb 12.2 L (12.9-16.9) g/dL Hct 36.2 L (37.5-50.1) % Plt Count 144 (140-400) K/mcL Neutrophils # 2.4 (1.6-8.9) K/mcL BMP 02/16/17 06:36 Sodium 140 Potassium 3.2 L Chloride 107 Carbon Dioxide 22 BUN 24 Creatinine 2.28 H Glucose 126 H Calcium 8.3 L Liver Function 02/16/17 Range/Units 06:36 Total Bilirubin 0.3 (0.2-1.2) mg/dL AST 20 (5-34) Units/L ALT 15 (0-55) Units/L Alkaline Phosphatase 129 H (38-126) Units/L Albumin 2.3 L (3.5-5.0) g/dL - ABG Interpretation ABG results: PT/INR, D-dimer PT 11.9 Seconds (9.4-12.1) 02/14/17 00:32 - VTE Documentation of Mechanical Device: Graduated compression elastic hosiery Consult Discharge Plan - Plan Referrals: Jesús Ortiz MD [Primary Care Provider] - 02/19/17 11:00 am () <Nelson Smith - Last Filed: 02/16/17 19:53> Date of Encounter: 02/16/17 - Constitutional Vitals: Temp Pulse Resp BP Pulse Ox 98.1 F 60 16 158/75 95 02/16/17 19:06 02/16/17 19:06 02/16/17 19:06 02/16/17 19:06 02/16/17 19:06 Internal Medicine: Result - Labs CBC & Chem 7: 02/16/17 06:36 02/16/17 06:36 Labs: Short CBC 02/16/17 Range/Units 06:36 WBC 4.8 (4.3-11.1) K/mcL Hgb 12.2 L (12.9-16.9) g/dL Hct 36.2 L (37.5-50.1) % Plt Count 144 (140-400) K/mcL Neutrophils # 2.4 (1.6-8.9) K/mcL BMP 02/16/17 06:36 Sodium 140 Potassium 3.2 L Chloride 107 Carbon Dioxide 22 BUN 24 Creatinine 2.28 H Glucose 126 H Calcium 8.3 L Liver Function 02/16/17 Range/Units 06:36 Total Bilirubin 0.3 (0.2-1.2) mg/dL AST 20 (5-34) Units/L ALT 15 (0-55) Units/L Alkaline Phosphatase 129 H (38-126) Units/L Albumin 2.3 L (3.5-5.0) g/dL Urine 02/16/17 Range/Units 13:30 Urine Color Yellow (Yellow) Urine Clarity Clear (Clear) Urine pH 6.0 (5.0-8.0) pH Units Ur Specific [place] 1.028 H (1.010-1.025) Urine Protein >=1000 H (Neg-Trace) mg/dL Urine Glucose (UA) >=1000 H (Normal) mg/dL - ABG Interpretation ABG results: PT/INR, D-dimer PT 11.9 Seconds (9.4-12.1) 02/14/17 00:32 - Attending Attestation I examined this patient and my medical decision-making was reviewed with the Resident Physician. I agree with the documented findings, disposition and treatment plan as described except to the extent set forth below. Patient is in no acute distress. Denies chest pain. Plan: Continue with IV fluids, avoid nephrotoxins. Check kidney function daily. Postpone cardiac catheterization until kidney function improves. It is my first day taking care of this patient. All problems are new to me today.
[2017-02-16 16:28] LABS: Bilirubin,Urine Negative (Negative); Blood,Urine Moderate (Negative); Clarity,Urine Clear (Clear); Color,Urine Yellow (Yellow); Glucose,Urine (UA) >=1000 mg/dL (Normal); Ketones,Urine Negative (Negative); Leukocyte Esterase,Urine Negative (Negative); Nitrite,Urine Negative (Negative); Protein,Urine >=1000 mg/dL (Neg-Trace); Specific Gravity,Urine 1.028 (1.010-1.025); Urobilinogen,Urine Normal (Normal)
[2017-02-16 16:30] LABS: Bacteria,Urine None Seen per hpf (None-Few); Hyaline Casts,Urine None Seen per lpf (None-Few); RBC,Urine 15-30 per hpf (0-3); Squamous Epithelial Cell,Urine Many per lpf (None-Few)
[2017-02-16] MEDS: Gabapentin 300 MG CAPSULE PO SCH (20:34)
[2017-02-16] MEDS: *HR* LORazepam 1 MG TABLET PO PRN (20:40)
[2017-02-17] MEDS: hydrALAZINE 25 MG TABLET PO SCH ×4 (00:39→23:16)
[2017-02-17] MEDS: *HR* Morphine 2 MG/ML SYRINGE IVP PRN ×4 (00:39→23:16)
[2017-02-17] MEDS: *HR* Heparin 5,000 UNIT/ML VIAL SQ SCH ×3 (06:16→20:37)
[2017-02-17] MEDS: traMADol 50 MG TABLET PO PRN ×2 (06:16→18:53)
[2017-02-17 06:45] LABS: Calcium 8.4 mg/dL (8.6-10.8); Magnesium 1.9 mg/dL (1.6-2.6); Potassium 3.3 mEq/L (3.5-4.5)
[2017-02-17 07:00] LABS: Basophils % 0.4 %; Eosinophils # 0.3 K/mcL (0.0-0.6); Eosinophils % 5.9 %; Hematocrit 35.4 % (37.5-50.1); Hemoglobin 11.8 g/dL (12.9-16.9); Immature Granulocytes % 0.4 % (0-4); Lymphocytes # 1.6 K/mcL (0.6-4.6); Lymphocytes % 29.9 %; Mean Corpuscular HGB Conc 33.3 g/dL (31.6-35.5); Mean Corpuscular Hemoglobin 27.6 pg (28.0-33.3); Mean Corpuscular Volume 82.7 fL (83.0-100.0); Mean Platelet Volume 10.6 fL (9.4-12.4); Monocytes # 0.5 K/mcL (0.0-1.3); Monocytes % 8.5 %; Platelet Count 149 K/mcL (140-400); Red Blood Count 4.28 M/mcL (4.19-5.50); Red Cell Distribution Width 13.5 % (11.5-14.5); Segmented Neutrophils % 54.9 %
[2017-02-17] MEDS: 0.9 % Sodium Chloride 1,000 ML IVC SCH (08:49)
[2017-02-17] MEDS: Insulin LISPRO 300 UNITS/3 ML VIAL SQ SCH ×4 (08:50→20:38)
[2017-02-17] MEDS: Metoprolol XL (24 HR) Succ 50 MG TAB.ER.24H PO SCH ×2 (08:51→20:37)
[2017-02-17] MEDS: Isosorbide MONOnitrate (24 HR) 30 MG TAB.ER.24H PO SCH (08:51)
[2017-02-17] MEDS: Pantoprazole 40 MG VIAL IVP SCH (08:51)
[2017-02-17] MEDS: Venlafaxine XR (24 HR) 150 MG CAP.ER.24H PO SCH (08:52)
[2017-02-17] MEDS: Lisinopril 20 MG TABLET PO SCH (08:52)
[2017-02-17] MEDS: amLODIPine 5 MG TABLET PO SCH (08:52)
[2017-02-17] MEDS: Aspirin Enteric Coated 81 MG Tablet PO SCH (08:52)
--- NOTE | 2017-02-17 10:46 | Nephrology Progress Note ---
Date of Encounter: 02/17/17 Time of Encounter: 10:44 - Assessment and Plan (1) Chronic kidney disease, stage III (moderate) Current Visit: Yes Status: Acute Patient has acute kidney injury superimposed on stage III chronic kidney disease. His serum creatinine is slowly improving on a daily basis. Once his creatinine stabilizes he should be able to undergo a cardiac catheter. He will require the usual precautions with IV hydration and Mucomyst. Baseline creatinine appears to be around 1.7 based on lab from July 2016. (2) Chest pain, radiating Current Visit: Yes Status: Acute (3) CAD (coronary artery disease) Current Visit: Yes Status: Chronic Qualifiers: Coronary Disease-Associated Artery/Lesion type: unspecified vessel or lesion type [place] vs. transplanted heart: [place] heart Associated angina: with stable angina Qualified Code(s): I25.118 - Atherosclerotic heart disease of [place] coronary artery with other forms of angina pectoris (4) Diabetes Current Visit: Yes Status: Chronic Qualifiers: Diabetes mellitus type: type 2 Diabetes mellitus complication status: with kidney complications Diabetes mellitus complication detail: with microalbuminuria Diabetes mellitus manager intermediate insulin use: without [place] [facility] use Qualified Code(s): E11.29 - Type 2 diabetes mellitus with other diabetic kidney complication; R80.9 - Proteinuria, unspecified (5) HTN (hypertension) Current Visit: Yes Status: Chronic Qualifiers: Hypertension type: essential hypertension Qualified Code(s): I10 - Essential (primary) hypertension Subjective Interval history: Patient denies any new complaints. He is not having any chest pain. His serum creatinine continues to improve on a daily basis. Baseline creatinine is 1.3- 1.7 based on lab studies through July 2016. Objective - Vital Signs Vital signs: Vital Signs Temp Pulse Resp BP Pulse Ox 02/17/17 08:45 99 02/17/17 08:19 98.2 F 61 18 180/77 99 02/17/17 00:50 91 02/16/17 23:56 98.4 F 85 15 158/82 91 02/16/17 19:06 98.1 F 60 16 158/75 95 02/16/17 15:28 98.3 F 59 18 154/77 95 02/16/17 11:09 98.3 F 61 18 136/73 97 Intake and Output 02/16/17 02/17/17 02/17/17 23:59 07:59 15:59 Intake Total 590 / 590 1000 / 1000 Output Total 1400 / 1400 Balance 590 / 590 1000 / 1000 -1400 / -1400 Intake: IV Fluids 1000 / 1000 0.9 % Sodium Chloride 1,000 ML 1000 / 1000 @ 50 mls/hr IVC .Q20H [facility] Rx#: [id number] Oral 590 / 590 Output: Catheter 1400 / 1400 Other: Meal Dinner Percent of Meal Consumed 95% Weight 94.801 kg Blood Glucose* 179 147 Patient Weight 02/17/17 23:59 Weight 94.801 kg - General Appearance Exam: Patient is alert and oriented. He is in no acute distress. Lungs clear to auscultation. Heart regular rate and rhythm. Abdomen is benign. There is no peripheral edema. - Lab 02/17/17 05:31 02/17/17 05:31 Most recent lab results Calcium 8.4 mg/dL (8.6-10.8) L 02/17/17 05:31 Phosphorus 3.0 mg/dL (2.3-4.7) 02/15/17 12:44 Magnesium 1.9 mg/dL (1.6-2.6) 02/17/17 05:31 - VTE Documentation of Mechanical Device: Graduated compression elastic hosiery Consult Discharge Plan - Plan Referrals: Jesús Ortiz MD [Primary Care Provider] -
[2017-02-17 11:24] LABS: Albumin 2.3 g/dL (3.5-5.0); Albumin/Globulin Ratio 0.5 (1.1-2.2); Bilirubin,Total 0.3 mg/dL (0.2-1.2); Calcium 8.2 mg/dL (8.6-10.8); Globulin 4.5 g/dL (2.4-3.5); Potassium 3.5 mEq/L (3.5-4.5); Total Protein 6.8 g/dL (6.0-8.3)
--- NOTE | 2017-02-17 13:28 | Internal Med Progress Note ---
<BrightKerwin gibson - Last Filed: 02/17/17 16:14> Date of Encounter: 02/17/17 Time of Encounter: 13:30 - Assessment and plan (1) Chest pain, radiating Current Visit: Yes Status: Acute Assessment and plan: Pt presents with acute chest pain that radiates to his back. He describes it as tightness with radiation to his right shoulder blade that is worse when he is lying down. Denies chest pain today, states that he still has the pain between shoulder blades. CTA chest negative for acute process. Troponins negative x3, echo with LVEF of 60-65% with mild LV hypertrophy, mild LVEDD, mild aortic stenosis. Stress test with gated EF of 48% and large sized, moderate to severe intensity, partially reversible inferolateral and anterolateral defect consistent with ischemia. Cardiology has consulted and requested consultation by nephrology for worsening renal function. Spoke to Dr. Horn from nephrology yesterday, although patient's creatinine has been downtrending, he is still not a good candidate for LHC. 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 Nephro recommends gentle hydration and monitoring renal function. - Nephro states that once patient's creatinine level stabilizes for 1-2 days that the patient can precede with a LHC. Monitor creatinine and f/u with nephro. Patient's baseline appears to be around 1.7 based on lab from July 2016. - Continue telemetry - Monitor labs - Cardiology and nephrology on board. - Oxygen to maintain sats greater than 92% on room air. pain control as written. (2) CAD (coronary artery disease) Current Visit: Yes Status: Chronic Assessment and plan: Patient with history of 2 stents, as well as an enlarged aorta. Continue home medications and telemetry. Continue BB, Imdur, Lipitor, and ASA. Continue telemetry. Qualifiers: Coronary Disease-Associated Artery/Lesion type: unspecified vessel or lesion type [place] vs. transplanted heart: [place] heart Associated angina: with stable angina Qualified Code(s): I25.118 - Atherosclerotic heart disease of [place] coronary artery with other forms of angina pectoris (3) CKD (chronic kidney disease) stage 4, GFR 15-29 ml/min Current Visit: Yes Status: Chronic Assessment and plan: Significant prtein uria in the setting of diabetes type 2 and long-term use of ibuprofen. Possible acute kidney injury given the fact that he had IV contrast exposure on February 13. He also has mild left hydronephrosis on the CT scan in the setting of a history of recurrent bladder neck contracture. Creatinine on admission was 2.22. Today, it has decreased from 2.28 to 2.18 since yesterday. - Continue gentle IV fluids. - Avoid nephrotoxic medications. - Monitor renal function. - F/U with nephro and cardio for possible LHC once creatinine stabilizes. (4) Diabetes Current Visit: Yes Status: Chronic Assessment and plan: A1c 6.9. Continue Accu-Cheks before meals at bedtime, diabetic diet, sliding scale insulin. 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 Continue Lipitor. Qualifiers: Hyperlipidemia type: pure hypercholesterolemia Qualified Code(s): E78.00 - Pure hypercholesterolemia, unspecified; E78.0 - Pure hypercholesterolemia (6) HTN (hypertension) Current Visit: Yes Status: Chronic Assessment and plan: Continue home medications. Pt bp at 113/61. l. Hydralazine prn SBP. 180, DBP > 100mmHg. Qualifiers: Hypertension type: essential hypertension Qualified Code(s): I10 - Essential (primary) hypertension (7) Melanoma Current Visit: Yes Status: Resolved Assessment and plan: Patient presents with resolved melanoma of the lower left arm. Patient had several lumps removed from arm and is due to have stitches removed on Wednesday. Samples sent off for biopsy. Patient also has previous hx of melanoma of the left ear. Patient to follow-up with provider. 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 - Given 20 meq KCL. - Subjective Interval history: Mr. Esquivel is a 76 year old male with medical history of arthritis, CAD, diabetes controlled with oral anti-hyperglycemics, HTN, and melanoma presented from the ED with chief complaint of pain radiating from his chest to mid to upper thoracic back. When seen today, patient says the pain in his L scapular region has improved considerably from yesterday. He rates it as a 2/10. However he does complain that when he moves around, it jumps back up to an 8/10. He denies any chest pain, shortness of breath, dizziness, syncope, nausea, vomiting , or abdominal pain. - Constitutional Vitals: Temp Pulse Resp BP Pulse Ox 98.0 F 63 16 113/61 97 02/17/17 11:31 02/17/17 11:31 02/17/17 11:31 02/17/17 11:02/17/17 11:31 General appearance: Present: cooperative, A&O X 3, pleasant, no acute distress, obese - Respiratory Respiratory exam: Present: CTAB. Absent: respiratory distress, stridor, wheezes , tachypnea - Cardiovascular Cardiovascular exam: Present: RRR, +S1, +S2, systolic murmur (Systolic ejection murmur heard best over L 3rd intercostal space. ). Absent: tachycardia Internal Medicine: Result - Labs CBC & Chem 7: 02/17/17 05:31 02/17/17 10:57 Labs: Short CBC 02/17/17 Range/Units 05:31 WBC 5.4 (4.3-11.1) K/mcL Hgb 11.8 L (12.9-16.9) g/dL Hct 35.4 L (37.5-50.1) % Plt Count 149 (140-400) K/mcL Neutrophils # 3.0 (1.6-8.9) K/mcL BMP 02/17/17 02/17/17 05:31 10:57 Sodium 140 138 Potassium 3.3 L 3.5 Chloride 108 107 Carbon Dioxide 22 24 BUN 25 24 Creatinine 2.18 H 2.34 H Glucose 145 H 244 H Calcium 8.4 L 8.2 L Liver Function 02/17/17 Range/Units 10:57 Total Bilirubin 0.3 (0.2-1.2) mg/dL AST 24 (5-34) Units/L ALT 20 (0-55) Units/L Alkaline Phosphatase 137 H (38-126) Units/L Albumin 2.3 L (3.5-5.0) g/dL Urine 02/16/17 Range/Units 13:30 Urine Color Yellow (Yellow) Urine Clarity Clear (Clear) Urine pH 6.0 (5.0-8.0) pH Units Ur Specific [place] 1.028 H (1.010-1.025) Urine Protein >=1000 H (Neg-Trace) mg/dL Urine Glucose (UA) >=1000 H (Normal) mg/dL - ABG Interpretation ABG results: PT/INR, D-dimer PT 11.9 Seconds (9.4-12.1) 02/14/17 00:32 - VTE Documentation of Mechanical Device: Graduated compression elastic hosiery Consult Discharge Plan - Plan Referrals: Jesús Ortiz MD [Primary Care Provider] - <Nelson Smith - Last Filed: 02/17/17 17:23> Date of Encounter: 02/17/17 - Constitutional Vitals: Temp Pulse Resp BP Pulse Ox 98.3 F 56 17 168/72 92 02/17/17 15:01 02/17/17 15:01 02/17/17 15:01 02/17/17 15:01 02/17/17 15:01 Internal Medicine: Result - Labs CBC & Chem 7: 02/17/17 05:31 02/17/17 10:57 Labs: Short CBC 02/17/17 Range/Units 05:31 WBC 5.4 (4.3-11.1) K/mcL Hgb 11.8 L (12.9-16.9) g/dL Hct 35.4 L (37.5-50.1) % Plt Count 149 (140-400) K/mcL Neutrophils # 3.0 (1.6-8.9) K/mcL BMP 02/17/17 02/17/17 05:31 10:57 Sodium 140 138 Potassium 3.3 L 3.5 Chloride 108 107 Carbon Dioxide 22 24 BUN 25 24 Creatinine 2.18 H 2.34 H Glucose 145 H 244 H Calcium 8.4 L 8.2 L Liver Function 02/17/17 Range/Units 10:57 Total Bilirubin 0.3 (0.2-1.2) mg/dL AST 24 (5-34) Units/L ALT 20 (0-55) Units/L Alkaline Phosphatase 137 H (38-126) Units/L Albumin 2.3 L (3.5-5.0) g/dL - ABG Interpretation ABG results: PT/INR, D-dimer PT 11.9 Seconds (9.4-12.1) 02/14/17 00:32 - Attending Attestation I examined this patient and my medical decision-making was reviewed with the Resident Physician. I agree with the documented findings, disposition and treatment plan as described except to the extent set forth below. Patient is in no acute distress, awake alert oriented. Heart exam reveals regular S1-S2. Lungs are clear. Abdomen is soft. Creatinine is trending down. Today 2.18. Plan: Follow up with nephrology. Plan for cardiac catheterization in 1-2 days. Continue with IV fluids.
[2017-02-17 14:39] LABS: Total Volume 24 Hour,Urine 2.92 Liters (0.80-1.80)
[2017-02-17 16:55] LABS: Creatinine 24 Hour,Urine 1.66 g/day (0.71-1.65)
[2017-02-17] MEDS: Gabapentin 300 MG CAPSULE PO SCH (20:30)
[2017-02-18] MEDS: *HR* Morphine 2 MG/ML SYRINGE IVP PRN ×2 (03:12→12:43)
[2017-02-18] MEDS: 0.9 % Sodium Chloride 1,000 ML IVC SCH ×3 (03:12→21:05)
[2017-02-18 04:41] LABS: Basophils % 0.5 %; Eosinophils # 0.4 K/mcL (0.0-0.6); Eosinophils % 6.9 %; Hematocrit 36.6 % (37.5-50.1); Immature Granulocytes % 0.2 % (0-4); Lymphocytes # 1.7 K/mcL (0.6-4.6); Lymphocytes % 27.3 %; Mean Corpuscular HGB Conc 32.8 g/dL (31.6-35.5); Mean Corpuscular Hemoglobin 26.9 pg (28.0-33.3); Mean Corpuscular Volume 82.1 fL (83.0-100.0); Mean Platelet Volume 10.1 fL (9.4-12.4); Monocytes # 0.5 K/mcL (0.0-1.3); Monocytes % 7.9 %; Neutrophils # 3.5 K/mcL (1.6-8.9); Platelet Count 165 K/mcL (140-400); Red Blood Count 4.46 M/mcL (4.19-5.50); Red Cell Distribution Width 13.3 % (11.5-14.5); Segmented Neutrophils % 57.2 %
[2017-02-18 04:53] LABS: Calcium 8.5 mg/dL (8.6-10.8); Potassium 3.5 mEq/L (3.5-4.5)
[2017-02-18] MEDS: *HR* Heparin 5,000 UNIT/ML VIAL SQ SCH ×3 (06:02→20:40)
[2017-02-18] MEDS: Acetaminophen 325 MG TABLET PO PRN ×2 (06:12→16:47)
[2017-02-18] MEDS: Isosorbide MONOnitrate (24 HR) 30 MG TAB.ER.24H PO SCH (07:52)
[2017-02-18] MEDS: Aspirin Enteric Coated 81 MG Tablet PO SCH (07:52)
[2017-02-18] MEDS: amLODIPine 5 MG TABLET PO SCH (07:52)
[2017-02-18] MEDS: Venlafaxine XR (24 HR) 150 MG CAP.ER.24H PO SCH (07:52)
[2017-02-18] MEDS: hydrALAZINE 25 MG TABLET PO SCH ×2 (07:52→15:06)
[2017-02-18] MEDS: Metoprolol XL (24 HR) Succ 50 MG TAB.ER.24H PO SCH ×2 (07:53→20:39)
[2017-02-18] MEDS: Insulin LISPRO 300 UNITS/3 ML VIAL SQ SCH ×4 (07:53→20:34)
[2017-02-18] MEDS: Lisinopril 20 MG TABLET PO SCH (07:53)
[2017-02-18] MEDS: traMADol 50 MG TABLET PO PRN ×2 (07:58→20:39)
--- NOTE | 2017-02-18 10:16 | Internal Med Progress Note ---
<Kerwin Dean - Last Filed: 02/18/17 16:34> Date of Encounter: 02/18/17 Time of Encounter: 10:00 - Assessment and plan (1) Chest pain, radiating Current Visit: Yes Status: Acute Assessment and plan: Pt presents with acute chest pain that radiates to his back. He describes it as tightness with radiation to his right shoulder blade that is worse when he is lying down. Denies chest pain today, states that he still has the pain between shoulder blades. CTA chest negative for acute process. Troponins negative x3, echo with LVEF of 60-65% with mild LV hypertrophy, mild LVEDD, mild aortic stenosis. Stress test with gated EF of 48% and large sized, moderate to severe intensity, partially reversible inferolateral and anterolateral defect consistent with ischemia. Cardiology has consulted and requested consultation by nephrology for worsening renal function. Spoke to Dr. Horn from nephrology yesterday, although patient's creatinine has been downtrending, he is still not a good candidate for LHC. 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 Nephro recommends gentle hydration and monitoring renal function. Patient's creatinine has dropped from 2.18 to 2.13. - Nephro states that patient's creatinine has stabilized and that the patient can precede with a LHC. Cardiology was informed. Patient NPO at midnight for LHC tomorrow. Patient given mucomyst for renal protective from contrast. Fluids increased from 50 to 75. - Continue telemetry - Monitor labs. - Oxygen to maintain sats greater than 92% on room air. pain control as written. (2) CAD (coronary artery disease) Current Visit: Yes Status: Chronic Assessment and plan: Patient with history of 2 stents, as well as an enlarged aorta. Continue home medications and telemetry. Continue BB, Imdur, Lipitor, and ASA. Continue telemetry. Qualifiers: Coronary Disease-Associated Artery/Lesion type: unspecified vessel or lesion type [place] vs. transplanted heart: [place] heart Associated angina: with stable angina Qualified Code(s): I25.118 - Atherosclerotic heart disease of [place] coronary artery with other forms of angina pectoris (3) CKD (chronic kidney disease) stage 4, GFR 15-29 ml/min Current Visit: Yes Status: Chronic Assessment and plan: Significant proteinuria in the setting of diabetes type 2 and long-term use of ibuprofen. Possible acute kidney injury given the fact that he had IV contrast exposure on February 13. He also has mild left hydronephrosis on the CT scan in the setting of a history of recurrent bladder neck contracture. Creatinine on admission was 2.22. Today, it has decreased from 2.18 to 2.13 since yesterday. - Continue gentle IV fluids. - Avoid nephrotoxic medications. - Monitor renal function. (4) Diabetes Current Visit: Yes Status: Chronic Assessment and plan: A1c 6.9. Gluocse reading today at 138. Continue Accu-Cheks before meals at bedtime, diabetic diet, sliding scale insulin. 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 Continue Lipitor. Qualifiers: Hyperlipidemia type: pure hypercholesterolemia Qualified Code(s): E78.00 - Pure hypercholesterolemia, unspecified; E78.0 - Pure hypercholesterolemia (6) HTN (hypertension) Current Visit: Yes Status: Chronic Assessment and plan: Continue home medications. Hydralazine prn SBP. 180, DBP > 100mmHg. Qualifiers: Hypertension type: essential hypertension Qualified Code(s): I10 - Essential (primary) hypertension (7) Melanoma Current Visit: Yes Status: Resolved Assessment and plan: Patient presents with resolved melanoma of the lower left arm. Patient had several lumps removed from arm and is due to have stitches removed on Wednesday. Samples sent off for biopsy. Patient also has previous hx of melanoma of the left ear. Patient to follow-up with provider. 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 Esquivel is a 76 year old male with medical history of arthritis, CAD, diabetes controlled with oral anti-hyperglycemics, HTN, and melanoma presented from the ED with chief complaint of pain radiating from his chest to mid to upper thoracic back. When seen today, patient says the pain in his L scapular region has stayed the same since yesterday. He rates it as a 2/10. He denies any chest pain, shortness of breath, dizziness, syncope, nausea, vomiting, or abdominal pain. - Constitutional Vitals: Temp Pulse Resp BP Pulse Ox 98.4 F 62 18 174/74 97 02/18/17 07:03 02/18/17 07:45 02/18/17 07:03 02/18/17 07:03 02/18/17 07:03 General appearance: Present: cooperative, A&O X 3, pleasant, no acute distress - Respiratory Respiratory exam: Present: CTAB. Absent: respiratory distress, rhonchi, wheezes , tachypnea - Cardiovascular Cardiovascular exam: Present: RRR, +S1, +S2, systolic murmur Additional comments: Systolic ejection murmur heard best over L parasternal 3rd intercostal space. - GI/Abdominal GI/Abdominal exam: Present: normal bowel sounds, soft. Absent: guarding, rebound, tenderness - Extremities Exam Extremities exam: Present: normal capillary refill. Absent: cyanotic, pedal edema, tenderness Additional comments: Pedal pulses intact bilaterally. Internal Medicine: Result - Labs CBC & Chem 7: 02/18/17 04:04 02/18/17 04:04 Labs: Short CBC 02/18/17 Range/Units 04:04 WBC 6.1 (4.3-11.1) K/mcL Hgb 12.0 L (12.9-16.9) g/dL Hct 36.6 L (37.5-50.1) % Plt Count 165 (140-400) K/mcL Neutrophils # 3.5 (1.6-8.9) K/mcL BMP 02/17/17 02/18/17 10:57 04:04 Sodium 138 137 Potassium 3.5 3.5 Chloride 107 107 Carbon Dioxide 24 21 BUN 24 22 Creatinine 2.34 H 2.13 H Glucose 244 H 138 H Calcium 8.2 L 8.5 L Liver Function 02/17/17 Range/Units 10:57 Total Bilirubin 0.3 (0.2-1.2) mg/dL AST 24 (5-34) Units/L ALT 20 (0-55) Units/L Alkaline Phosphatase 137 H (38-126) Units/L Albumin 2.3 L (3.5-5.0) g/dL - ABG Interpretation ABG results: PT/INR, D-dimer PT 11.9 Seconds (9.4-12.1) 02/14/17 00:32 - VTE Documentation of Mechanical Device: Graduated compression elastic hosiery Consult Discharge Plan - Plan Referrals: Jesús Ortiz MD [Primary Care Provider] - <Nelson Smith - Last Filed: 02/18/17 17:37> Date of Encounter: 02/18/17 - Constitutional Vitals: Temp Pulse Resp BP Pulse Ox 98.1 F 65 18 154/85 93 02/18/17 14:47 02/18/17 14:47 02/18/17 14:47 02/18/17 14:47 02/18/17 14:47 Internal Medicine: Result - Labs CBC & Chem 7: 02/18/17 04:04 02/18/17 04:04 Labs: Short CBC 02/18/17 Range/Units 04:04 WBC 6.1 (4.3-11.1) K/mcL Hgb 12.0 L (12.9-16.9) g/dL Hct 36.6 L (37.5-50.1) % Plt Count 165 (140-400) K/mcL Neutrophils # 3.5 (1.6-8.9) K/mcL BMP 02/18/17 04:04 Sodium 137 Potassium 3.5 Chloride 107 Carbon Dioxide 21 BUN 22 Creatinine 2.13 H Glucose 138 H Calcium 8.5 L - ABG Interpretation ABG results: PT/INR, D-dimer PT 11.9 Seconds (9.4-12.1) 02/14/17 00:32 - Attending Attestation I examined this patient and my medical decision-making was reviewed with the Resident Physician. I agree with the documented findings, disposition and treatment plan as described except to the extent set forth below. Patient denies chest pain. Heart exam reveals regular rate and rhythm S1-S2. Lungs are clear bilaterally. 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 He agrees creatinine is close to his baseline and even the risk is still high at is acceptable at this point to proceed with cardiac catheterization. We will continue with IV hydration and start Mucomyst. I discussed the case with cardiology who will plan for cardiac catheterization in the morning.
--- NOTE | 2017-02-18 10:47 | Nephrology Progress Note ---
Date of Encounter: 02/18/17 Time of Encounter: 10:15 - Assessment and Plan (1) LATIA (acute kidney injury) Current Visit: Yes Status: Acute clinical picture of stage III chronic kidney disease with significant proteinuria in the setting of type 2 diabetes and long-term use of ibuprofen and history of recurrent bladder neck contracture. Baseline creat 1.47-1.78. Renal fct improving 2.13. Documented urine output 2600 cc. Once his creatinine stabilizes he should be able to undergo a cardiac catheter. He will require the usual precautions with IV hydration and Mucomyst. Avoid nephrotoxins. Will continue to monitor (2) CKD (chronic kidney disease) stage 4, GFR 15-29 ml/min Current Visit: Yes Status: Chronic Subjective Interval history: Sitting up in bed. States still has left shoulder, back pain that is improved and is reproducible. No new complaints. Objective - Vital Signs Vital signs: Vital Signs Temp Pulse Resp BP Pulse Ox 02/18/17 10:28 139/85 02/18/17 07:45 62 02/18/17 07:03 98.4 F 60 18 174/74 97 02/17/17 22:34 98.6 F 66 15 173/95 97 02/17/17 19:30 98.3 F 60 15 177/71 97 02/17/17 15:01 98.3 F 56 17 168/72 92 02/17/17 11:31 98.0 F 63 16 113/61 97 Intake and Output 02/17/17 02/18/17 02/18/17 23:59 07:59 15:59 Intake Total 540 / 540 1000 / 1000 120 / 120 Output Total 1200 / 1200 800 / 800 Balance -660 / -660 200 / 200 120 / 120 Intake: IV Fluids 1000 / 1000 0.9 % Sodium Chloride 1,000 ML 1000 / 1000 @ 50 mls/hr IVC .Q20H [facility] Rx#: [id number] Oral 540 / 540 120 / 120 Output: Urine 450 / 450 Catheter 750 / 750 800 / 800 Other: Meal Dinner Breakfast Percent of Meal Consumed 100% 0% Weight 92.533 kg Blood Glucose* 259 198 Patient Weight 02/18/17 23:59 Weight 92.533 kg - General Appearance General appearance: Present: well-developed, well-nourished, appears started age EENT: Present: mucous membranes moist Neck: Present: no JVD Respiratory: Present: clear Cardiology: Present: no edema, regular rate, regular rhythm Gastrointestinal: Present: normoactive bowel sounds, no tenderness Integumentary: Present: warm and dry Neurologic: Present: alert and oriented x3 Psychiatric: Present: mood/affect appropriate, cooperative - Lab 02/18/17 04:04 02/18/17 04:04 Most recent lab results Calcium 8.5 mg/dL (8.6-10.8) L 02/18/17 04:04 Phosphorus 3.0 mg/dL (2.3-4.7) 02/15/17 12:44 Magnesium 1.9 mg/dL (1.6-2.6) 02/17/17 05:31 Urine Creatinine 57 mg/dL 02/15/17 23:30 Ur Total Protein 24 Hr 37677 mg/day (0-299) H 02/15/17 23:30 Urine Total Protein 857 mg/dL (1-14) H 02/15/17 23:30 - VTE Documentation of Mechanical Device: Graduated compression elastic hosiery Consult Discharge Plan - Plan Referrals: Jesús Ortiz MD [Primary Care Provider] -
[2017-02-18] MEDS: *HR* Acetylcysteine 20% 600 MG/3 ML ORAL SYRINGE PO SCH ×2 (16:46→20:40)
[2017-02-18 20:37] LABS: Urine Collection Duration RANDOM hr; Urine Collection Volume RANDOM mL
[2017-02-18] MEDS: *HR* LORazepam 1 MG TABLET PO PRN (20:40)
[2017-02-18] MEDS: Gabapentin 300 MG CAPSULE PO SCH (20:40)
[2017-02-19] MEDS: hydrALAZINE 25 MG TABLET PO SCH ×2 (00:08→08:28)
[2017-02-19] MEDS: *HR* Morphine 2 MG/ML SYRINGE IVP PRN ×4 (00:08→15:33)
[2017-02-19] MEDS: Acetaminophen 325 MG TABLET PO PRN ×3 (01:46→13:50)
[2017-02-19 03:11] LABS: Basophils % 0.4 %; Eosinophils # 0.4 K/mcL (0.0-0.6); Eosinophils % 5.7 %; Hematocrit 35.5 % (37.5-50.1); Hemoglobin 11.7 g/dL (12.9-16.9); Immature Granulocytes % 0.3 % (0-4); Lymphocytes # 2.1 K/mcL (0.6-4.6); Lymphocytes % 27.5 %; Mean Corpuscular Hemoglobin 27.1 pg (28.0-33.3); Mean Corpuscular Volume 82.4 fL (83.0-100.0); Mean Platelet Volume 10.3 fL (9.4-12.4); Monocytes # 0.6 K/mcL (0.0-1.3); Neutrophils # 4.5 K/mcL (1.6-8.9); Platelet Count 181 K/mcL (140-400); Red Blood Count 4.31 M/mcL (4.19-5.50); Red Cell Distribution Width 13.3 % (11.5-14.5); Segmented Neutrophils % 58.1 %
[2017-02-19 03:23] LABS: Calcium 8.4 mg/dL (8.6-10.8); Potassium 3.5 mEq/L (3.5-4.5)
[2017-02-19] MEDS: *HR* Heparin 5,000 UNIT/ML VIAL SQ SCH ×2 (04:04→12:48)
[2017-02-19] MEDS: 0.9 % Sodium Chloride 1,000 ML IVC SCH (04:35)
[2017-02-19] MEDS: Metoprolol XL (24 HR) Succ 50 MG TAB.ER.24H PO SCH (08:28)
[2017-02-19] MEDS: Lisinopril 20 MG TABLET PO SCH (08:29)
[2017-02-19] MEDS: Isosorbide MONOnitrate (24 HR) 30 MG TAB.ER.24H PO SCH (08:29)
[2017-02-19] MEDS: Venlafaxine XR (24 HR) 150 MG CAP.ER.24H PO SCH (08:29)
[2017-02-19] MEDS: amLODIPine 5 MG TABLET PO SCH (08:30)
[2017-02-19] MEDS: Aspirin Enteric Coated 81 MG Tablet PO SCH (08:37)
[2017-02-19] MEDS: Insulin LISPRO 300 UNITS/3 ML VIAL SQ SCH ×2 (08:37→12:46)
[2017-02-19] MEDS: traMADol 50 MG TABLET PO PRN (11:05)
[2017-02-19] MEDS: *HR* Acetylcysteine 20% 600 MG/3 ML ORAL SYRINGE PO SCH (11:11)
--- NOTE | 2017-02-19 11:45 | Internal Med Progress Note ---
<AshaelizabethbrandanKerwin jones - Last Filed: 02/19/17 17:34> Date of Encounter: 02/19/17 Time of Encounter: 10:15 - Assessment and plan (1) Chest pain, radiating Status: Acute Assessment and plan: Pt presents with acute chest pain that radiates to his back. He describes it as tightness with radiation to his right shoulder blade that is worse when he is lying down. Denies chest pain today, states that he still has the pain between shoulder blades. CTA chest negative for acute process. Troponins negative x3, echo with LVEF of 60-65% with mild LV hypertrophy, mild LVEDD, mild aortic stenosis. Stress test with gated EF of 48% and large sized, moderate to severe intensity, partially reversible inferolateral and anterolateral defect consistent with ischemia. Cardiology has consulted and requested consultation by nephrology for worsening renal function. 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 Nephro recommends gentle hydration and monitoring renal function. Patient's creatinine has increased from 2.13 to 2.21. Nephro states that patient's creatinine has stabilized and that the patient can precede with a LHC. Cardiology was informed. Patient has been NPO for C. Patient given mucomyst for renal protective from contrast. Fluids increased from 50 to 75. I spoke with cardiology earlier today and they are concerned about the patient's current creatinine level. - Cardiology will be confirming with nephrology today for if they are to move forward with the LHC. - Continue telemetry - Monitor labs. - Oxygen to maintain sats greater than 92% on room air. - Pain control as written. Update: Per cardiology and nephro, patient will follow-up with cardiology in the outpatient to monitor creatinine levels until it can normalize to baseline level before he can undergo a LHC. (2) CAD (coronary artery disease) Status: Chronic Assessment and plan: Patient with history of 2 stents, as well as an enlarged aorta. Continue home medications and telemetry. Continue BB, Imdur, Lipitor, and ASA. Continue telemetry. Qualifiers: Coronary Disease-Associated Artery/Lesion type: unspecified vessel or lesion type [place] vs. transplanted heart: [place] heart Associated angina: with stable angina Qualified Code(s): I25.118 - Atherosclerotic heart disease of [place] coronary artery with other forms of angina pectoris (3) CKD (chronic kidney disease) stage 4, GFR 15-29 ml/min Status: Chronic (4) Diabetes Status: Chronic Assessment and plan: A1c 6.9. Gluocse reading today at 164. Continue Accu-Cheks before meals at bedtime, diabetic diet, sliding scale insulin. Qualifiers: Diabetes mellitus type: type 2 Diabetes mellitus complication status: with kidney complications Diabetes mellitus complication detail: with microalbuminuria Diabetes mellitus prison insulin use: without prison use Qualified Code(s): E11.29 - Type 2 diabetes mellitus with other diabetic kidney complication; R80.9 - Proteinuria, unspecified (5) HLD (hyperlipidemia) Status: Chronic Assessment and plan: Chronic. Continue Lipitor. Qualifiers: Hyperlipidemia type: pure hypercholesterolemia Qualified Code(s): E78.00 - Pure hypercholesterolemia, unspecified; E78.0 - Pure hypercholesterolemia (6) HTN (hypertension) Status: Chronic Assessment and plan: Continue home medications. Hydralazine prn SBP. 180, DBP > 100mmHg. Qualifiers: Hypertension type: essential hypertension Qualified Code(s): I10 - Essential (primary) hypertension (7) Melanoma Status: Resolved Assessment and plan: Patient presents with resolved melanoma of the lower left arm. Patient had several lumps removed from arm and is due to have stitches removed on Wednesday. Samples sent off for biopsy. Patient also has previous hx of melanoma of the left ear. Patient to follow-up with provider. 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 Esquivel is a 76 year old male with medical history of arthritis, CAD, diabetes controlled with oral anti-hyperglycemics, HTN, and melanoma presented from the ED with chief complaint of pain radiating from his chest to mid to upper thoracic back. When seen today, patient says the pain in his L scapular region has stayed the same since yesterday. He rates it as a 2/10. He denies any chest pain, shortness of breath, dizziness, syncope, nausea, vomiting, or abdominal pain. - Constitutional Vitals: Temp Pulse Resp BP Pulse Ox 98.5 F 64 19 194/96 97 02/19/17 06:32 02/19/17 06:32 02/19/17 06:32 02/19/17 06:32 02/19/17 06:32 General appearance: Present: cooperative, A&O X 3, pleasant, no acute distress - Respiratory Respiratory exam: Present: CTAB. Absent: respiratory distress, rhonchi, wheezes , tachypnea - Cardiovascular Cardiovascular exam: Present: RRR, +S1, +S2, systolic murmur - GI/Abdominal GI/Abdominal exam: Present: normal bowel sounds, soft. Absent: guarding, rebound, tenderness - Extremities Exam Extremities exam: Present: radial pulses palpable and symmetrical. Absent: cyanotic, pedal edema Additional comments: Pedal pulses intact bilaterally. Internal Medicine: Result - Labs CBC & Chem 7: 02/19/17 02:18 02/19/17 02:18 Labs: Short CBC 02/19/17 Range/Units 02:18 WBC 7.7 (4.3-11.1) K/mcL Hgb 11.7 L (12.9-16.9) g/dL Hct 35.5 L (37.5-50.1) % Plt Count 181 (140-400) K/mcL Neutrophils # 4.5 (1.6-8.9) K/mcL BMP 02/19/17 02:18 Sodium 137 Potassium 3.5 Chloride 107 Carbon Dioxide 20 BUN 19 Creatinine 2.21 H Glucose 164 H Calcium 8.4 L - ABG Interpretation ABG results: PT/INR, D-dimer PT 11.9 Seconds (9.4-12.1) 02/14/17 00:32 - VTE Documentation of Mechanical Device: Graduated compression elastic hosiery Consult Discharge Plan - Plan Instructions: Oxycodone/Acetaminophen (By mouth), Sitagliptin (By mouth), Chest Pain (DC), Diabetes Mellitus Type 2 in Adults (DC), Chronic Hypertension ( DC) Referrals: Jesús Ortiz MD [Primary Care Provider] - Prescriptions: OxyCODONE/APAP 5/325 [Percocet 5/325 MG] 1 each PO Q6HR PRN #24 tablet PRN Reason: Pain SitaGLIPtin [Januvia] 25 mg PO DAILY #30 tablet <Nelson Smith - Last Filed: 02/19/17 18:20> Date of Encounter: 02/19/17 - Constitutional Vitals: Temp Pulse Resp BP Pulse Ox 97.9 F 55 16 166/84 97 02/19/17 11:49 02/19/17 11:49 02/19/17 11:49 02/19/17 11:49 02/19/17 11:49 Internal Medicine: Result - Labs CBC & Chem 7: 02/19/17 02:18 02/19/17 02:18 Labs: Short CBC 02/19/17 Range/Units 02:18 WBC 7.7 (4.3-11.1) K/mcL Hgb 11.7 L (12.9-16.9) g/dL Hct 35.5 L (37.5-50.1) % Plt Count 181 (140-400) K/mcL Neutrophils # 4.5 (1.6-8.9) K/mcL BMP 02/19/17 02:18 Sodium 137 Potassium 3.5 Chloride 107 Carbon Dioxide 20 BUN 19 Creatinine 2.21 H Glucose 164 H Calcium 8.4 L - ABG Interpretation ABG results: PT/INR, D-dimer PT 11.9 Seconds (9.4-12.1) 02/14/17 00:32 - Attending Attestation I examined this patient and my medical decision-making was reviewed with the Resident Physician. I agree with the documented findings, disposition and treatment plan as described except to the extent set forth below. Patient is awake alert oriented in no acute distress. Heart is regular. Lungs are clear.
[2017-02-19 11:51] VITALS: BP 166/84
--- NOTE | 2017-02-19 12:00 | Nephrology Progress Note ---
Date of Encounter: 02/19/17 Time of Encounter: 11:20 - Assessment and Plan (1) LATIA (acute kidney injury) Current Visit: Yes Status: Acute clinical picture of stage III chronic kidney disease with significant proteinuria in the setting of type 2 diabetes and long-term use of ibuprofen and history of recurrent bladder neck contracture. Baseline creat 1.47-1.78. Renal fct stable 2.21. Documented urine output 2200 cc. LHC scheduled for today. Avoid nephrotoxins. Will continue to monitor (2) CKD (chronic kidney disease) stage 4, GFR 15-29 ml/min Current Visit: Yes Status: Chronic Subjective Interval history: States scheduled for LHC today, Mucomyst, IV fluids in progress. No new complaints. Reviewed risks of contrast. Objective - Vital Signs Vital signs: Vital Signs Temp Pulse Resp BP Pulse Ox 02/19/17 11:49 97.9 F 55 16 166/84 97 02/19/17 06:32 98.5 F 64 19 194/96 97 02/19/17 02:47 98.5 F 68 16 194/91 96 02/18/17 22:28 98.6 F 66 16 198/97 97 02/18/17 18:17 98.2 F 56 16 175/81 97 02/18/17 14:47 98.1 F 65 18 154/85 93 Intake and Output 02/18/17 02/19/17 02/19/17 23:59 07:59 15:59 Intake Total 1000 / 1000 Output Total 1400 / 1400 1500 / 1500 Balance -400 / -400 -1500 / -1500 Intake: IV Fluids 1000 / 1000 0.9 % Sodium Chloride 1,000 ML 1000 / 1000 @ 75 mls/hr IVC .[id number] [facility] Rx #:[id number] Output: Catheter 1400 / 1400 1500 / 1500 Other: Meal NPO Weight 94.166 kg Blood Glucose* 120 188 177 Patient Weight 02/19/17 23:59 Weight 94.166 kg - General Appearance General appearance: Present: well-developed, well-nourished, appears started age EENT: Present: mucous membranes moist Neck: Present: no JVD Respiratory: Present: clear Cardiology: Present: no edema, regular rate, regular rhythm Gastrointestinal: Present: normoactive bowel sounds, no tenderness Integumentary: Present: warm and dry Neurologic: Present: alert and oriented x3 Psychiatric: Present: mood/affect appropriate, cooperative - Lab 02/19/17 02:18 02/19/17 02:18 Most recent lab results Calcium 8.4 mg/dL (8.6-10.8) L 02/19/17 02:18 Phosphorus 3.0 mg/dL (2.3-4.7) 02/15/17 12:44 Magnesium 1.9 mg/dL (1.6-2.6) 02/17/17 05:31 Urine Creatinine 57 mg/dL 02/15/17 23:30 Ur Total Protein 24 Hr 24510 mg/day (0-299) H 02/15/17 23:30 Urine Total Protein 857 mg/dL (1-14) H 02/15/17 23:30 - VTE Documentation of Mechanical Device: Graduated compression elastic hosiery Consult Discharge Plan - Plan Referrals: Jesús Ortiz MD [Primary Care Provider] -
--- NOTE | 2017-02-19 13:18 | Event Note ---
Date of Encounter: 02/19/17 Time of Encounter: 12:30 - Cardiology Event Note Cardiology had been asked to re-evaluate this pateint with abnormal stress test. Patient with LATIA, creatinine 2.21 today. Baseline creatinine 1.4-1.7. Per review of last cardiology inpatient note, recommendations for outpatient follow up were given. Per IM note today, patient denied chest pain. I personally spoke with regarding LHC. states his recommendations would be outpatient follow up to see if his creatinine normalized prior to LHC, unless need for LHC is emergent. Discussed with . Patient is being set up for follow up in cardiology clinic. Recommend outpatient follow up with nephrology also.
--- NOTE | 2017-02-19 14:18 | Discharge Summary ---
<Kerwin Dean - Last Filed: 02/19/17 17:33> Date of Encounter: 02/19/17 Time of Encounter: 10:15 - Discharge Diagnosis (1) Chest pain, radiating Priority: Primary Status: Acute (2) CAD (coronary artery disease) Priority: Primary Status: Chronic Qualifiers: Coronary Disease-Associated Artery/Lesion type: unspecified vessel or lesion type [place] vs. transplanted heart: [place] heart Associated angina: with stable angina Qualified Code(s): I25.118 - Atherosclerotic heart disease of [place] coronary artery with other forms of angina pectoris (3) CKD (chronic kidney disease) stage 4, GFR 15-29 ml/min Priority: Primary Status: Chronic (4) Diabetes Priority: Primary Status: Chronic Qualifiers: Diabetes mellitus type: type 2 Diabetes mellitus complication status: with kidney complications Diabetes mellitus complication detail: with microalbuminuria Diabetes mellitus care home insulin use: without intermediate project manager use Qualified Code(s): E11.29 - Type 2 diabetes mellitus with other diabetic kidney complication; R80.9 - Proteinuria, unspecified (5) HLD (hyperlipidemia) Priority: Primary Status: Chronic Qualifiers: Hyperlipidemia type: pure hypercholesterolemia Qualified Code(s): E78.00 - Pure hypercholesterolemia, unspecified; E78.0 - Pure hypercholesterolemia (6) HTN (hypertension) Priority: Primary Status: Chronic Qualifiers: Hypertension type: essential hypertension Qualified Code(s): I10 - Essential (primary) hypertension (7) Melanoma Priority: Primary Status: Resolved Qualifiers: Melanoma location: upper extremity including shoulder Laterality: left Qualified Code(s): 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, including shoulder - Discharge Medications Prescriptions: OxyCODONE/APAP 5/325 [Percocet 5/325 MG] 1 each PO Q6HR PRN #24 tablet PRN Reason: Pain SitaGLIPtin [Januvia] 25 mg PO DAILY #30 tablet Home Medications: Amlodipine Besylate 10 mg PO DAILY 04/02/16 [History] Atorvastatin Calcium [Lipitor] 20 mg PO HS 04/02/16 [History] Isosorbide MONOnitrate (24 HR) [Imdur] 30 mg PO DAILY 04/02/16 [History] Metoprolol Succinate 200 mg PO BID 04/02/16 [History] Buspirone HCl [Buspar] 7.5 mg PO BID 11/12/16 [History] Clopidogrel [Plavix] 75 mg PO DAILY 11/12/16 [History] Gabapentin [Neurontin] 300 mg PO HS 11/12/16 [History] Tramadol HCl [Ultram] 50 mg PO BID PRN 11/12/16 [History] Venlafaxine XR (24 HR) [Effexor Xr] 150 mg PO DAILY 11/12/16 [History] Ferrous Sulfate [Iron] 325 mg PO DAILY 02/13/17 [History] Tizanidine HCl [Zanaflex] 1 - 2 mg PO Q8HR PRN 02/13/17 [History] Cyanocobalamin (Vitamin B-12) [Vitamin B-12] 1,000 mcg SL DAILY 02/14/17 [ History] Trazodone HCl 100 mg PO HS 02/14/17 [History] OxyCODONE/APAP 5/325 [Percocet 5/325 MG] 1 each PO Q6HR PRN #24 tablet 02/19/17 [Rx] SitaGLIPtin [Januvia] 25 mg PO DAILY #30 tablet 02/19/17 [Rx] Allergies/Adverse Reactions: 3 Allergy/AdvReac Type Severity Reaction Status Date / Time No Known Allergies Allergy Verified 02/14/17 13:39 Date of admission: 02/15/17 12:44 Primary care physician: Jesús Ortiz MD Discharging clinician: Nelson Smith ([facility]) Anticipated date of discharge: 02/19/17 - Patient Status Disposition: Transfer SNF Condition: Good Overall status at discharge: patient is progressing back to baseline - Discharge Instructions Instructions: Oxycodone/Acetaminophen (By mouth), Sitagliptin (By mouth), Chest Pain (DC), Diabetes Mellitus Type 2 in Adults (DC), Chronic Hypertension ( DC) Follow Up With: Jesús Ortiz MD [Primary Care Provider] - - Diet and Activity Activity: ambulate only with your walker Diet: low fat, low cholesterol Interval History: Mr. Esquivel is a 76 year old male with medical history of arthritis, CAD, diabetes controlled with oral anti-hyperglycemics, HTN, and melanoma presented from the ED with chief complaint of pain radiating from his chest to mid to upper thoracic back. Hospital course: Mr. Esquivel is a 76 year old male with medical history of arthritis, CAD, diabetes controlled with oral anti-hyperglycemics, HTN, and melanoma presented from the ED with chief complaint of pain radiating from his chest to mid to upper thoracic back. On admission to ED, patient's vital signs include temperature of 97.9F, heart rate of 59, respiratory rate of 18, BP of 138/95, SPO2 99% on room air. Abnormal labs include BNP of 890, creatinine of 2.4, GFR 27, glucose of 261. Initial troponin 0.02. CXR revealed no cardiopulmonary disease. EKG reveled no acute ischemic changes. CTA revealed no signs of aortic dissection. Stress test was performed an revealed a Gated EF = 48%. with a large sized, moderate to severe intensity, partially reversible inferolateral and anterolateral defect consistent with ischemia. Patient's creatinine was elevated at 2.22 and with nephrology and cardiology on board, consensus was to wait and see if the creatinine would improve and stabilize to his baseline of 1.4 to 1.7. His creatinine has been stabilizing around 2.1-2.2. As a result, it is recommended that the patient have outpatient follow-up to see if his creatinine will normalize to baseline level in order to undergo LHC. When seen today, patient says the pain in his L scapular region has stayed the same since yesterday. He rates it as a 2/10. He denies any chest pain, shortness of breath , dizziness, syncope, nausea, vomiting, or abdominal pain. - Time Spent with Patient Total time spent providing and/or coordinating discharge services: Greater than 30 minutes - Constitutional Vitals: Temp Pulse Resp BP Pulse Ox 97.9 F 55 16 166/84 97 02/19/17 11:49 02/19/17 11:49 02/19/17 11:49 02/19/17 11:49 02/19/17 11:49 General appearance: Present: cooperative, A&O X 3, pleasant, no acute distress - Respiratory Respiratory exam: Present: CTAB. Absent: respiratory distress, rhonchi, wheezes , tachypnea - Cardiovascular Cardiovascular exam: Present: RRR, +S1, +S2, systolic murmur. Absent: diastolic murmur - GI/Abdominal GI/Abdominal exam: Present: normal bowel sounds, soft. Absent: guarding, rebound, tenderness - Extremities Exam Extremities exam: Present: radial pulses palpable and symmetrical. Absent: cyanotic, pedal edema Additional comments: Pedal pulses intact bilaterally. - VTE Documentation of Mechanical Device: Graduated compression elastic hosiery <Nelson Smith - Last Filed: 02/19/17 18:19> Date of Encounter: 02/19/17 Date of admission: 02/15/17 12:44 Primary care physician: Jesús Ortiz MD Hospital course: Mr. Esquivel is a 76 year old male - Time Spent with Patient Total time spent providing and/or coordinating discharge services: - Constitutional Vitals: Temp Pulse Resp BP Pulse Ox 97.9 F 55 16 166/84 97 02/19/17 11:49 02/19/17 11:49 02/19/17 11:49 02/19/17 11:49 02/19/17 11:49 - Attending Attestation I examined this patient and my medical decision-making was reviewed with the Resident Physician. I agree with the documented findings, disposition and treatment plan as described except to the extent set forth below. Creatinine has stabilized and has been oscillating around 2.2. He has good urine output. I discussed the case with cardiology and nephrology. Both recommend against inpatient cardiac catheterization and close outpatient follow-up. I instructed the patient to follow up closely with both services. I have spent 40 minutes coordinating this discharge.
--- NOTE | 2017-02-19 15:03 | Physician Discharge Referral ---
[facility] Referral Info [facility] Provider in Charge: Dr. Smith Provider in Charge after Transfer: PCP - Diagnosis (1) Chest pain, radiating Priority: Primary Status: Acute (2) CAD (coronary artery disease) Priority: Primary Status: Chronic (3) CKD (chronic kidney disease) stage 4, GFR 15-29 ml/min Priority: Primary Status: Chronic (4) Diabetes Priority: Primary Status: Chronic (5) HLD (hyperlipidemia) Priority: Primary Status: Chronic (6) HTN (hypertension) Priority: Primary Status: Chronic (7) Melanoma Priority: Primary Status: Resolved - Transfer Medications Prescriptions: OxyCODONE/APAP 5/325 [Percocet 5/325 MG] 1 each PO Q6HR PRN #24 tablet PRN Reason: Pain SitaGLIPtin [Januvia] 25 mg PO DAILY #30 tablet Home Medications: Amlodipine Besylate 10 mg PO DAILY 04/02/16 [History] Atorvastatin Calcium [Lipitor] 20 mg PO HS 04/02/16 [History] Isosorbide MONOnitrate (24 HR) [Imdur] 30 mg PO DAILY 04/02/16 [History] Metoprolol Succinate 200 mg PO BID 04/02/16 [History] Buspirone HCl [Buspar] 7.5 mg PO BID 11/12/16 [History] Clopidogrel [Plavix] 75 mg PO DAILY 11/12/16 [History] Gabapentin [Neurontin] 300 mg PO HS 11/12/16 [History] Tramadol HCl [Ultram] 50 mg PO BID PRN 11/12/16 [History] Venlafaxine XR (24 HR) [Effexor Xr] 150 mg PO DAILY 11/12/16 [History] Ferrous Sulfate [Iron] 325 mg PO DAILY 02/13/17 [History] Tizanidine HCl [Zanaflex] 1 - 2 mg PO Q8HR PRN 02/13/17 [History] Cyanocobalamin (Vitamin B-12) [Vitamin B-12] 1,000 mcg SL DAILY 02/14/17 [ History] Trazodone HCl 100 mg PO HS 02/14/17 [History] OxyCODONE/APAP 5/325 [Percocet 5/325 MG] 1 each PO Q6HR PRN #24 tablet 02/19/17 [Rx] SitaGLIPtin [Januvia] 25 mg PO DAILY #30 tablet 02/19/17 [Rx] Allergies/Adverse Reactions: 3 Allergy/AdvReac Type Severity Reaction Status Date / Time No Known Allergies Allergy Verified 02/14/17 13:39 - Respiratory Orders Smoking Cessation: Smoking cessation has been advised. For more information, call the [place] Tobacco Quit Line at 0-821-UYQM-NOW. - Ancillary Orders May use pressure relief devices daily prn, May go on MALI w/family/respon constitution party w /meds at nurse discretion PRN, May consult with Dentist, Maths Tutor, Felt Strip Finisher PRN - Advance Directives Code Status: Full Code - Mobility Orders Other - Treatments Skin tear care topically daily PRN per policy, May check for fecal impaction rectally daily PRN, Fleet enema rectally every other day PRN cleansing purposes - Diet Orders Renal CERTIFICATION: I certify that the transfer of the above named patient to an Extended Care Facility is necessary for the continuing treatment of the diagnosis listed. The above information is true and accurate reflection of patient's current condition. Confidential - Redisclosure prohibited without a patient's written consent.
[2017-02-19 17:58] LABS: Alpha 2 Globulin (PEP) 1.08 g/dL (0.48-1.05); Beta Globulin (PEP) 0.58 g/dL (0.48-1.10)
[2017-02-20 11:14] LABS: Immunoglobulin G 1950 mg/dL (768-1632)
[2017-02-20 11:16] LABS: Immunoglobulin M 10 mg/dL (35-263)
[2017-02-20 11:17] LABS: IFE Reflexed IFE Done; Immunoglobulin A 21 mg/dL (68-408)
== END 2017-02-19 15:45 | DRG 303 ==
LOC: EMEROO 09:00 → 3BNU 09:00 → SUATTDRO 02-15 12:44
PROVIDERS: ADMIT Internal Medicine; ATTEND Internal Medicine

== ENCOUNTER 2017-06-17 06:20 | Inpatient (IN) ==
[~2017-06-17 06:20] MED LIST: Dextrose 50 % in Water (Vial) 30 ML, Sodium Bicarbonate 20 MEQ, Potassium Chloride 15 M... TH ONE; Insulin Human Regular 100 UNIT in 0.9 % Sodium Chloride 100 ML IV PRN; Norepinephrine 4 MG in D5% in Water 250 ML IVC PRN
[2017-06-17] MEDS ORDERED: Aspirin 81 MG TAB.CHEW PO ONE (06:32)
[2017-06-17] MEDS ORDERED: CeFAZolin Syr 2,000MG/20 ML 2,000 MG/20 ML SYRINGE IVPB ONE (06:40)
[2017-06-17] MEDS ORDERED: Plasma-Lyte A (PH 7.4) 1,000 ML IVC SCH (06:45)
[2017-06-17] MEDS ORDERED: Verapamil 5 MG/2 ML VIAL ONE (06:59)
[2017-06-17] MEDS: Chlorhexidine Rinse 15 ML MOUTHWASH MM SCH ×2 (07:00→23:19)
--- NOTE | 2017-06-17 07:10 | History & Physical Report ---
Date of Encounter: 06/17/17 Time of Encounter: 07:09 24 Hour HP Update - Instructions Instructions: If the History and Physical is less than 30 days old and was completed prior to A.M. admission and or procedure and has NOT been updated on calendar day of procedure please complete this update prior to performing procedure. - Update Patient reports changes in Medical Condition: No Changes in examination, assessment, or condition: No Changes in Medication: No Preop tests/diagnostics Reviewed: Yes Pre-Op MRSA Screen: Negative Surgery Remains Indicated: Yes Consent for Planned Operative Procedure(s) Verified: Yes - Pre-Operative Checklist Preoperative Checklist Indicated: Yes Prophylactic Antibiotic Ordered: Yes Home Medications Include Beta Rajat: Yes Beta Rajat Taken Today (Day of Surgery): Yes Beta Rajat Taken Yesterday (Day Prior to Surgery): Yes Is VTE Prophylaxis Indicated?: Yes
[2017-06-17] MEDS ORDERED: *HR* Propofol 200 MG/20 ML VIAL IVP ONE (07:32)
[2017-06-17] MEDS ORDERED: *HR* PHENYLEPHRINE 1,000 MCG/10 ML SYRINGE IVP ONE (07:35)
[2017-06-17] MEDS ORDERED: Nitroglycerin 25 MG/250 ML INFUS..BTL IVC ONE ×2 (07:38→11:30)
[2017-06-17] MEDS ORDERED: Lidocaine -MPF 2% 2 ML VIAL ONE (07:40)
[2017-06-17] MEDS ORDERED: Norepinephrine 4 MG in D5% in Water 250 ML IVC PRN (07:45)
[2017-06-17] MEDS ORDERED: Dextrose 50 % in Water (Vial) 30 ML, Sodium Bicarbonate 20 MEQ, Lidocaine 1% 5 ML, Insu... TH SCH (07:45)
[2017-06-17] MEDS ORDERED: Insulin Human Regular 100 UNIT in 0.9 % Sodium Chloride 100 ML IV PRN (07:45)
[2017-06-17] MEDS ORDERED: Heparin 15,000 UNIT in 0.9 % Sodium Chloride 500 ML IV SCH (07:45)
[2017-06-17] MEDS ORDERED: Dextrose 50 % in Water (Vial) 30 ML, Sodium Bicarbonate 20 MEQ, Potassium Chloride 15 M... TH ONE (07:45)
[2017-06-17 08:12] LABS: ABG Base Excess -3 mEq/L (-2 to 3); ABG Chloride 105 mEq/L (98-107); ABG Glucose 173 mg/dL (60-95); ABG HCO3 23 mEq/L (21-27); ABG Ionized Calcium 1.18 mmol/L (1.15-1.35); ABG Oxygen Saturation 96 % (95-98); ABG PCO2 42 mmHg (35-45); ABG PH 7.34 pH Units (7.32-7.45); ABG PO2 88 mmHg (85-104); ABG TCO2 24 mEq/L (20-26)
[2017-06-17 09:35] LABS: VBG Base Excess -3 mEq/L; VBG Chloride 107 mEq/L (98-107); VBG Glucose 159 mg/dl (65-95); VBG HCO3 23 mEq/L (21-27); VBG Ionized Calcium 1.11 mmol/L (1.15-1.35); VBG Oxygen Saturation 82 %; VBG PCO2 46 mmHg (41-51); VBG PH 7.31 pH Units (7.32-7.42); VBG PO2 51 mmHg (25-50); VBG Total CO2 25 mEq/L
[2017-06-17 10:10] LABS: ABG Base Excess -4 mEq/L (-2 to 3); ABG Chloride 103 mEq/L (98-107); ABG Glucose 242 mg/dL (60-95); ABG HCO3 21 mEq/L (21-27); ABG Ionized Calcium 0.94 mmol/L (1.15-1.35); ABG Oxygen Saturation 100 % (95-98); ABG PCO2 34 mmHg (35-45); ABG PH 7.39 pH Units (7.32-7.45); ABG PO2 532 mmHg (85-104); ABG TCO2 22 mEq/L (20-26)
[2017-06-17 10:39] LABS: ABG Base Excess 0 mEq/L (-2 to 3); ABG Chloride 102 mEq/L (98-107); ABG Glucose 249 mg/dL (60-95); ABG HCO3 24 mEq/L (21-27); ABG Ionized Calcium 0.93 mmol/L (1.15-1.35); ABG Oxygen Saturation 100 % (95-98); ABG PCO2 34 mmHg (35-45); ABG PH 7.45 pH Units (7.32-7.45); ABG PO2 427 mmHg (85-104); ABG TCO2 25 mEq/L (20-26)
[2017-06-17] MEDS ORDERED: *HR* FentaNYL (PF) 1,000 MCG/20 ML VIAL IVC ONE (10:43)
[2017-06-17] MEDS ORDERED: Tranexamic Acid 1,000 MG/10 ML VIAL IVPB ONE (10:43)
[2017-06-17] MEDS ORDERED: Protamine Sulfate 250 MG/25 ML VIAL IVP ONE (10:43)
[2017-06-17] MEDS ORDERED: *HR* Midazolam HCl 5 MG/5 ML VIAL IVP ONE ×2 (10:43→21:51)
[2017-06-17] MEDS ORDERED: *HR* Etomidate 40 MG/20 ML VIAL IVP ONE (10:43)
[2017-06-17] MEDS ORDERED: Albumin Human 25% 25 GM/100 ML IV.SOLN IV ONE (10:46)
[2017-06-17] MEDS ORDERED: *HR* Heparin 10,000 UNIT/10 ML VIAL IV ONE (10:46)
[2017-06-17] MEDS ORDERED: Mannitol 25% vial 12.5 GM/50 ML VIAL IVP ONE (10:46)
[2017-06-17] MEDS ORDERED: Sodium Bicarbonate 50 MEQ/50 ML VIAL IVC ONE (10:46)
[2017-06-17] MEDS ORDERED: *HR* Magnesium Sulfate 2 GM/50 ML PIGGYBACK IVPB ONE (10:46)
[2017-06-17] MEDS ORDERED: *HR* Phenylephrine 10 MG/ML VIAL IVC ONE (10:46)
[2017-06-17] MEDS ORDERED: Lidocaine 2% Syringe 100 MG/5 ML IV ONE (10:46)
[2017-06-17 11:04] LABS: ABG Base Excess -1 mEq/L (-2 to 3); ABG Chloride 102 mEq/L (98-107); ABG Glucose 256 mg/dL (60-95); ABG HCO3 24 mEq/L (21-27); ABG Ionized Calcium 0.94 mmol/L (1.15-1.35); ABG Oxygen Saturation 100 % (95-98); ABG PCO2 39 mmHg (35-45); ABG PO2 320 mmHg (85-104); ABG TCO2 25 mEq/L (20-26)
[2017-06-17] MEDS ORDERED: Albumin Human 5% 50.0 GM/1,000 ML VIAL ONE ×2 (11:31→17:43)
[2017-06-17 11:33] LABS: ABG Base Excess 3 mEq/L (-2 to 3); ABG Chloride 102 mEq/L (98-107); ABG Glucose 202 mg/dL (60-95); ABG HCO3 26 mEq/L (21-27); ABG Ionized Calcium 0.92 mmol/L (1.15-1.35); ABG Oxygen Saturation 100 % (95-98); ABG PCO2 36 mmHg (35-45); ABG PH 7.48 pH Units (7.32-7.45); ABG PO2 350 mmHg (85-104); ABG TCO2 28 mEq/L (20-26)
[2017-06-17 12:37] LABS: ABG Base Excess 0 mEq/L (-2 to 3); ABG Chloride 105 mEq/L (98-107); ABG Glucose 150 mg/dL (60-95); ABG HCO3 25 mEq/L (21-27); ABG Ionized Calcium 1.04 mmol/L (1.15-1.35); ABG Oxygen Saturation 100 % (95-98); ABG PCO2 42 mmHg (35-45); ABG PH 7.39 pH Units (7.32-7.45); ABG PO2 521 mmHg (85-104); ABG TCO2 26 mEq/L (20-26)
[2017-06-17 13:10] LABS: ABG Base Excess -2 mEq/L (-2 to 3); ABG Chloride 105 mEq/L (98-107); ABG Glucose 179 mg/dL (60-95); ABG HCO3 24 mEq/L (21-27); ABG Ionized Calcium 1.02 mmol/L (1.15-1.35); ABG Oxygen Saturation 100 % (95-98); ABG PCO2 48 mmHg (35-45); ABG PH 7.31 pH Units (7.32-7.45); ABG PO2 244 mmHg (85-104); ABG TCO2 26 mEq/L (20-26)
[2017-06-17] MEDS ORDERED: *HR* Vasopressin 20 UNIT/ML VIAL ONE (13:29)
[2017-06-17 13:36] LABS: ABG Base Excess -6 mEq/L (-2 to 3); ABG Chloride 107 mEq/L (98-107); ABG Glucose 192 mg/dL (60-95); ABG HCO3 23 mEq/L (21-27); ABG Ionized Calcium 1.85 mmol/L (1.15-1.35); ABG Oxygen Saturation 91 % (95-98); ABG PCO2 62 mmHg (35-45); ABG PH 7.18 pH Units (7.32-7.45); ABG PO2 76 mmHg (85-104); ABG TCO2 25 mEq/L (20-26)
[2017-06-17] MEDS ORDERED: Sodium Bicarbonate 50 MEQ/50 ML VIAL ONE (13:38)
[2017-06-17] MEDS ORDERED: Vasopressin 40 UNIT in D5% in Water 100 ML IV SCH (13:45)
[2017-06-17] MEDS ORDERED: *HR* OxyCODONE/APAP 5/325 TABLET PO PRN (13:48)
[2017-06-17] MEDS ORDERED: *HR* Promethazine 25 MG/ML VIAL IVP PRN (13:48)
[2017-06-17] MEDS ORDERED: *HR* Dextrose 50 % in Water (Syg) 50 ML SYRINGE IVP PRN (13:48)
[2017-06-17] MEDS ORDERED: Insulin Regular, Human 100 UNIT/ML IV PRN (13:48)
[2017-06-17] MEDS ORDERED: Ondansetron 4 MG/2 ML VIAL IVP PRN (13:48)
[2017-06-17] MEDS ORDERED: *HR* Morphine 2 MG/ML SYRINGE IVP PRN (13:48)
[2017-06-17] MEDS ORDERED: Naloxone 0.4 MG/ML INJ IVP PRN (13:48)
[2017-06-17] MEDS: EPINEPHrine 1 MG in D5% in Water 250 ML IVC SCH ×2 (13:50→23:27)
[2017-06-17] MEDS ORDERED: 0.9 % Sodium Chloride 1,000 ML ONE (13:58)
[2017-06-17] MEDS ORDERED: Norepinephrine 4 MG in D5% in Water 250 ML IVC SCH (14:00)
[2017-06-17] MEDS ORDERED: 0.9 % Sodium Chloride 1,000 ML IVC SCH (14:00)
[2017-06-17] MEDS ORDERED: Insulin Human Regular 100 UNIT in 0.9 % Sodium Chloride 100 ML IVC SCH (14:00)
[2017-06-17 14:06] LABS: Basophils % 0.3 %; Eosinophils # 0.2 K/mcL (0.0-0.6); Eosinophils % 1.9 %; Hematocrit 37.8 % (37.5-50.1); Hemoglobin 12.9 g/dL (12.9-16.9); Immature Granulocytes % 0.6 % (0-4); Lymphocytes # 1.4 K/mcL (0.6-4.6); Lymphocytes % 13.9 %; Mean Corpuscular HGB Conc 34.1 g/dL (31.6-35.5); Mean Corpuscular Hemoglobin 28.7 pg (28.0-33.3); Mean Platelet Volume 9.6 fL (9.4-12.4); Monocytes # 0.1 K/mcL (0.0-1.3); Monocytes % 0.6 %; Platelet Count 129 K/mcL (140-400); Red Cell Distribution Width 13.9 % (11.5-14.5); Segmented Neutrophils % 82.7 %
[2017-06-17 14:07] LABS: ABG Base Excess 0 mEq/L (-2 to 3); ABG HCO3 25 mEq/L (21-27); ABG Oxygen Saturation 99 % (95-98); ABG PCO2 43 mmHg (35-45); ABG PH 7.38 pH Units (7.32-7.45); ABG PO2 117 mmHg (85-104); ABG TCO2 27 mEq/L (20-26); Blood Gas Modality ASSIST CONTROL; Blood Gas PEEP 5 cm H2O; Blood Gas Respiration Rate 14; Blood Gas VT 600 cc
[2017-06-17 14:18] LABS: INR 1.6; Prothrombin Time 16.9 Seconds (9.4-12.1)
[2017-06-17 14:19] LABS: Activated Partial Thrombo Time 33.3 Seconds (26.0-36.0)
[2017-06-17 14:21] LABS: Calcium 8.6 mg/dL (8.6-10.3); Magnesium 2.3 mg/dL (1.6-2.6); Potassium 3.9 mEq/L (3.5-5.1)
--- NOTE | 2017-06-17 15:20 | Procedure Note ---
<Estuardo Franco - Last Filed: 06/17/17 15:22> Date of procedure: 06/17/17 Pre-op diagnosis: Hypotension, CAD Post-op diagnosis: same Procedure: Date: 06/17/17 Time: 15:00 Indication: Hemodynamic monitoring/Intravenous access Resident: Estuardo Franco Attending: Brandon Dahl A time-out was completed verifying correct patient, procedure, site, positioning , and special equipment if applicable. The patient was placed in a dependent position appropriate for central line placement based on the vein to be cannulated. The patients left neck was prepped and draped in sterile fashion. A triple lumen 16-[place] Cordis catheter was introduced into the the internal jugular using the Seldinger technique and under ultrasound guidance. The catheter was threaded smoothly over the guide wire and appropriate blood return was obtained. Each lumen of the catheter was evacuated of air and flushed with sterile saline. The catheter was then sutured in place to the skin and a sterile dressing applied. Perfusion to the extremity distal to the point of catheter insertion was checked and found to be adequate. Attending was present for the entire procedure. Estimated Blood Loss: 2 The patient tolerated the procedure well and there were no complications. Was there an assistant county attorney present: Yes Park Warden: Brandon Dahl Estimated blood loss (cc): 2 Specimen: none Condition: critical Disposition: ICU <Brandon Dahl - Last Filed: 06/17/17 19:26> Procedure: I examined this patient and my medical decision-making was reviewed with the Resident Physician. I agree with the documented findings, disposition and treatment plan as described except to the extent set forth below. I have personally supervised resident placing central line without immediate complications.
[2017-06-17] MEDS: CeFAZolin Premix DUPLEX 2,000 MG/50 ML BAG IVPB SCH (16:54)
--- NOTE | 2017-06-17 16:54 | Operative Note ---
Date of procedure: 06/17/17 Was there an assistant analyst present: Yes Rails Developer: Tapan Mcclellan (none) Estimated blood loss (cc): 800 Specimen: none Condition: critical Disposition: ICU (none) Procedure in Detail: Preoperative diagnosis. Coronary artery disease. Postoperative diagnosis. Same. Procedures. Coronary artery bypass grafting 3 with the left internal mammary artery to the LAD and saphenous vein grafts to the diagonal branch and posterior descending branch of the right coronary artery. Also percutaneous insertion of an atraumatic balloon pump through the left femoral approach. Surgeon. Dr. David Irvin. Asst. Tapan Mcclellan. The patient is a 77-year-old gentleman with a history of diabetes and chronic renal failure. He was having daily angina upon walking from one room to the next that lasted for approximately one hour. He does have a history of a brief period of a aphasia many years ago, but no recent TIAs or strokes in the last 5-10 years. He is status post stenting. Cardiac catheterization revealed severe coronary artery disease and he was referred for surgery. He did have preoperative chronic kidney disease with a creatinine of 2.4. He was brought to the operating room where he was prepped and draped in standard fashion. The right greater saphenous vein was harvested from the right ankle up to the right groin using 2 small incisions, using the scope. A standard median sternotomy was performed. The left internal mammary artery retractor was inserted and the left internal mammary artery was harvested in standard fashion using the Bovie electrocoagulation. Following this, the mammary retractor was removed and the standard sternal campground manager was inserted. Pericardium was opened in the midline and suspended with 2-0 silk stay sutures. A double pursestring of 200 [place] was placed in the aorta for the aortic cannulation site. A pursestring of 20 [place] was placed in the right atrial appendage for the venous uptake. The patient was heparinized. The aorta was cannulated without difficulty. 2 stage venous uptake cannula was inserted through the right atrial appendage. A pursestring of 3-0 silk was placed in the aorta and the cardioplegia needle was inserted through here. The patient was placed on cardiopulmonary bypass and cooled to 34.4. The aorta was crossclamped and a liter of cardioplegia was given antegrade. Topical cooling with iced saline slush was also done. Attention was first turned to the right coronary artery. The posterior descending branch was dissected free with the [place] blade and found to be quite small and diffusely diseased. I did dissect the main right coronary artery. However this was heavily calcified and not graftable. The posterior descending branch was opened with the [place] blade and the Chan scissors and had a lumen of 1 mm with severe diffuse disease. A standard end-to-side anastomosis was constructed using the saphenous vein and a 7-0 Prolene. At this point the patient received additional antegrade cardioplegia. Attention was turned to the circumflex. Obtuse marginal branch #2 and the distal circumflex were too small and diffusely diseased for grafting. Attention was turned to the diagonal branch. This was dissected free with the [place] blade and opened with the [place] blade and the Chan scissors. This had a lumen of 1 mm with severe diffuse disease. A standard end-to-side anastomosis was constructed using the saphenous vein and a 7-0 Prolene. When this is completed, the patient received a last dose of antegrade cardioplegia. Mammary pedicle was harvested. Tonsil clamp was placed distally and was divided with the Metzenbaum scissors. Distal end was tied off with 2-0 silk suture. Proximal end was trimmed and brought into the wound. The LAD was dissected free with the [place] blade and opened with the [place] blade and the Chan scissors. This had a lumen of 1-1/2 mm with mild diffuse disease. A standard end-to-side anastomosis was constructed using the mammary artery and a 7-0 Prolene. When this is completed, the previously placed bulldog clamp was removed. Hemostasis was good. The pedicle was tacked to the surface of the heart using 2 interrupted 4-0 silk sutures. Cross-clamp was removed and rewarming was begun. Total cross-clamp time was 53 minutes. A side-biting clamp was placed on the aorta and the cardioplegia needle was removed. 2 holes were made in the aorta using the [place] blade and the 4.0 mm aortic punch. 2 proximal anastomoses were constructed in standard fashion using the saphenous veins and 5-0 Prolene's. The side-biting clamp was removed. However, the right graft had a twisted and had to be redone. The side-biting clamp was replaced. The anastomosis was taken down with a 15 blade. A standard end-to-side anastomosis constructed using a 5-0 Prolene. Side-biting clamp was removed. The grafts were de-aired is #25-gauge needle and the previously placed bulldog clamps were removed. Distal anastomoses were inspected. I did place additional sutures of Prolene in the diagonal and right distal anastomoses. I also placed FloSeal around the proximal and distal anastomoses. A pair of ventricular pacing wires was left. A total of 4 chest tubes were left. A 32 right chest tube to the left pleural space. A 3 to right angle chest tube to the pericardial well. A 40 mediastinal chest tube. A 32 angle chest tube to the right pleural space. The patient was weaned from bypass and decannulated. A suture of 3-0 Prolene with Dacron pledgets was placed in the aorta to obtain hemostasis. The pericardium was left open. Platelet rich and platelet poor plasma was used on the sternum and tissues above the sternum. The sternum was closed with #7 sternal wires in simple and ufwroy-xn-alhmp fashion. Fascia was run with #1 Vicryl. Subcutaneous taste tissues with a 2-0 Vicryl. Skin with a 3- 0 Vicryl subcuticular stitch. Total cross-clamp time 53 minutes. Total bypass time 134 minutes. He been cooled to 34.4. Shortly after closing the chest, he did have a fall in blood pressure. This did respond to fluids and pressors. The chest tubes were hooked to suction and there was no significant drainage. We did place a left femoral percutaneous intra-aortic balloon pump without difficulty and turned it on at a 1-1 rate. The patient was transferred to the ICU in critical and serious condition.
[2017-06-17 18:27] LABS: ABG Base Excess -7 mEq/L (-2 to 3); ABG HCO3 21 mEq/L (21-27); ABG Oxygen Saturation 77 % (95-98); ABG PCO2 49 mmHg (35-45); ABG PH 7.23 pH Units (7.32-7.45); ABG PO2 50 mmHg (85-104); ABG TCO2 22 mEq/L (20-26); Blood Gas Modality ASSIST CONTROL; Blood Gas PEEP 5 cm H2O; Blood Gas Respiration Rate 14; Blood Gas VT 600 cc
[2017-06-17 18:36] LABS: ABG Base Excess -6 mEq/L (-2 to 3); ABG HCO3 21 mEq/L (21-27); ABG Oxygen Saturation 82 % (95-98); ABG PCO2 47 mmHg (35-45); ABG PH 7.25 pH Units (7.32-7.45); ABG PO2 54 mmHg (85-104); ABG TCO2 22 mEq/L (20-26); Blood Gas Modality ASSIST CONTROL; Blood Gas PEEP 5 cm H2O; Blood Gas Respiration Rate 12; Blood Gas VT 600 cc
[2017-06-17 18:37] LABS: Hematocrit 28.8 % (37.5-50.1); INR 1.5; Mean Corpuscular HGB Conc 33.3 g/dL (31.6-35.5); Mean Corpuscular Hemoglobin 29.2 pg (28.0-33.3); Mean Corpuscular Volume 87.5 fL (83.0-100.0); Mean Platelet Volume 10.3 fL (9.4-12.4); Platelet Count 115 K/mcL (140-400); Red Blood Count 3.29 M/mcL (4.19-5.50); Red Cell Distribution Width 14.3 % (11.5-14.5)
[2017-06-17 18:40] LABS: Activated Partial Thrombo Time 40.8 Seconds (26.0-36.0)
[2017-06-17 18:43] LABS: Prothrombin Time 16.8 Seconds (9.4-12.1)
[2017-06-17 18:46] LABS: Calcium 8.2 mg/dL (8.6-10.3); Magnesium 2.5 mg/dL (1.6-2.6); Potassium 3.8 mEq/L (3.5-5.1)
[2017-06-17 18:52] LABS: Hemoglobin 9.6 g/dL (12.9-16.9)
[2017-06-17 19:20] LABS: Basophils # 0.2 K/mcL (0.0-0.2); Lymphocytes # 1.8 K/mcL (0.6-4.6); Monocytes # 0.6 K/mcL (0.0-1.3); Neutrophils # 13.5 K/mcL (1.6-8.9)
[2017-06-17 19:21] LABS: Platelet Estimate Slight Decrease (Normal)
[2017-06-17] MEDS ORDERED: SODIUM CHLORIDE 0.9% IVPB SCH (19:30)
[2017-06-17] MEDS ORDERED: DESMOPRESSIN IVPB SCH (19:30)
[2017-06-17] MEDS ORDERED: 0.9 % Sodium Chloride 250 ML ONE ×3 (19:33→20:33)
[2017-06-17] MEDS ORDERED: Chlorhexidine Rinse 15 ML MOUTHWASH MM SCH (21:00)
--- NOTE | 2017-06-17 21:46 | Event Note ---
Date of Encounter: 06/17/17 Time of Encounter: 21:46 The patient initially had 900 mL of blood out over the first of 5 hours. However , in the last 2 hours he put out 250 mL followed by 300 mL. Hemodynamically he is improved. He was briefly off norepinephrine and epinephrine drips. He is only on vasopressin. He is not tachycardic. Heart rate is remain normal sinus rhythm in the low 70s. Chest x-ray does not reveal a widened mediastinum. It does reveal pulmonary edema. He has had almost no urine output. I will take him back to the operating room to reexplore his chest to rule out cardiac tamponade on. The family has been notified and are on the way in. The patient has received 2 units of fresh frozen plasma, 20 pack of platelets, cryoprecipitate and Desmopressin. The patient is becoming difficult to oxygenate. He is critically ill and will be returning to the operating room.
[2017-06-17] MEDS ORDERED: ceFAZolin 2,000 MG in D5% in Water 100 ML IVPB ONE (22:54)
[2017-06-17] MEDS ORDERED: CeFAZolin Premix DUPLEX 2,000 MG/50 ML BAG IVPB ONE (23:00)
[2017-06-18] MEDS ORDERED: Furosemide 40 MG in 0.9 % Sodium Chloride 50 ML IVPB ONE ×2 (00:09→01:08)
[2017-06-18] MEDS: EPINEPHrine 1 MG in D5% in Water 250 ML IVC SCH (00:10)
[2017-06-18] MEDS: Vasopressin 40 UNIT in D5% in Water 100 ML IV SCH (00:10)
[2017-06-18] MEDS: 0.9 % Sodium Chloride 1,000 ML IVC SCH ×3 (00:10→20:00)
[2017-06-18] MEDS: Norepinephrine 4 MG in D5% in Water 250 ML IVC SCH (00:10)
--- NOTE | 2017-06-18 00:23 | Operative Note ---
Date of procedure: 06/18/17 Was there an facilities maintenance assistant present: No Estimated blood loss (cc): 300 Specimen: none Condition: critical Disposition: ICU Procedure in Detail: Preoperative diagnosis. Postoperative bleeding. Postoperative diagnosis. Same. Procedures. Reexplore chest for postoperative bleeding with evacuation of clot. Surgeon. Dr. David Irvin. The patient is a 77-year-old gentleman with a history of renal failure. His preoperative creatinine was 2.4. He was also on Plavix which had been stopped 4-5 days prior to surgery. He was having daily chest pain upon walking from one room to the next. This would last for up to an hour. He had undergone coronary artery bypass grafting earlier in the day. This was complicated by small diffusely diseased coronary arteries. We did insert an aortic balloon pump. He was on several drips. Initially, his bleeding was minimal. He put out 900 mL in the chest tubes over the first 5 hours. However he began to have increased outputs and had 250 followed by 300 mL over an hour. He had received numerous products including platelets, cryoprecipitate and fresh frozen plasma. Because of this I returned him to the operating room. The operating room where he was prepped and draped in standard fashion. The old incision was opened using a #10 blade. The sternal wires were cut and removed. The sternum was opened with the sternal poultry processor. Clot was evacuated from the mediastinum. No discrete bleeding points could be found. There was some oozing around the distal anastomoses and these were packed with fibrillar. The proximal anastomoses were okay. The aortic cannulation and venous uptake sites were okay. We did use some bone wax on the sternum. At this point, hemostasis was good. Ventricular pacing wires were left. A total of 4 chest tubes were left. A 32 angle chest tube the left pleural space. A 32 right chest tube to the pericardial well. A 40 mediastinal chest tube. A 30 Trenkle chest tube in the right pleural space. Sternum was closed with sternal wires in simple and [id number] fashion. Fascia was run with a #1 Vicryl. Skin was closed with a 3-0 Vicryl subcuticular stitch. The patient tolerated the procedure well and was returned intensive care unit in satisfactory and improved condition.
[2017-06-18 00:50] LABS: Basophils % 0.1 %; Eosinophils % 0.1 %; Hematocrit 31.6 % (37.5-50.1); Hemoglobin 10.5 g/dL (12.9-16.9); Immature Granulocytes % 0.5 % (0-4); Lymphocytes # 0.3 K/mcL (0.6-4.6); Lymphocytes % 1.8 %; Mean Corpuscular HGB Conc 33.2 g/dL (31.6-35.5); Mean Corpuscular Hemoglobin 29.3 pg (28.0-33.3); Mean Corpuscular Volume 88.3 fL (83.0-100.0); Mean Platelet Volume 10.1 fL (9.4-12.4); Monocytes # 0.7 K/mcL (0.0-1.3); Monocytes % 4.8 %; Platelet Count 118 K/mcL (140-400); Red Blood Count 3.58 M/mcL (4.19-5.50); Red Cell Distribution Width 14.6 % (11.5-14.5); Segmented Neutrophils % 92.7 %
[2017-06-18 00:57] LABS: INR 1.6
[2017-06-18 00:59] LABS: Activated Partial Thrombo Time 50.4 Seconds (26.0-36.0)
[2017-06-18 01:02] LABS: ABG Base Excess -10 mEq/L (-2 to 3); ABG HCO3 17 mEq/L (21-27); ABG Oxygen Saturation 89 % (95-98); ABG PCO2 45 mmHg (35-45); ABG PH 7.19 pH Units (7.32-7.45); ABG PO2 69 mmHg (85-104); ABG TCO2 19 mEq/L (20-26)
[2017-06-18 01:07] LABS: Prothrombin Time 17.4 Seconds (9.4-12.1)
[2017-06-18] MEDS ORDERED: Insulin LISPRO 300 UNITS/3 ML VIAL SQ PRN (01:08)
[2017-06-18] MEDS ORDERED: Norepinephrine 4 MG in D5% in Water 250 ML IVC PRN (01:08)
[2017-06-18] MEDS ORDERED: Insulin Human Regular 100 UNIT in 0.9 % Sodium Chloride 100 ML IVC SCH (01:08)
[2017-06-18] MEDS ORDERED: *HR* Promethazine 25 MG/ML VIAL IVP PRN (01:08)
[2017-06-18] MEDS ORDERED: Ondansetron 4 MG/2 ML VIAL IVP PRN (01:08)
[2017-06-18] MEDS ORDERED: Dextrose 50 % in Water (Vial) 30 ML, Sodium Bicarbonate 20 MEQ, Lidocaine 1% 5 ML, Insu... TH SCH (01:08)
[2017-06-18] MEDS ORDERED: Naloxone 0.4 MG/ML INJ IVP PRN (01:08)
[2017-06-18] MEDS ORDERED: *HR* Dextrose 50 % in Water (Syg) 50 ML SYRINGE IVP PRN ×2 (01:08→14:58)
[2017-06-18 01:10] LABS: Calcium 7.2 mg/dL (8.6-10.3); Potassium 5.1 mEq/L (3.5-5.1)
[2017-06-18] MEDS ORDERED: niCARdipine 40 MG/200 ML MLS IVC ONE (01:27)
[2017-06-18] MEDS: niCARdipine 40 MG/200 ML MLS IVC SCH ×3 (01:30→19:20)
[2017-06-18] MEDS: CeFAZolin Premix DUPLEX 2,000 MG/50 ML BAG IVPB SCH ×3 (01:51→14:39)
[2017-06-18 03:29] LABS: ABG Base Excess -3 mEq/L (-2 to 3); ABG HCO3 23 mEq/L (21-27); ABG Oxygen Saturation 93 % (95-98); ABG PCO2 46 mmHg (35-45); ABG PH 7.31 pH Units (7.32-7.45); ABG PO2 73 mmHg (85-104); ABG TCO2 24 mEq/L (20-26); Blood Gas Modality ASSIST CONTROL; Blood Gas PEEP 8 cm H2O; Blood Gas Respiration Rate 14; Blood Gas VT 600 cc
[2017-06-18] MEDS: *HR* Morphine 2 MG/ML SYRINGE IVP PRN ×4 (03:49→21:32)
[2017-06-18 04:53] LABS: Hemoglobin 10.8 g/dL (12.9-16.9)
[2017-06-18 04:56] LABS: Hematocrit 32.3 % (37.5-50.1); Immature Platelets 5.4 % (1.1-6.1); Mean Corpuscular HGB Conc 33.4 g/dL (31.6-35.5); Mean Corpuscular Hemoglobin 28.7 pg (28.0-33.3); Mean Corpuscular Volume 85.9 fL (83.0-100.0); Mean Platelet Volume 10.3 fL (9.4-12.4); Red Blood Count 3.76 M/mcL (4.19-5.50); Red Cell Distribution Width 14.6 % (11.5-14.5)
[2017-06-18 04:57] LABS: INR 1.5; Prothrombin Time 16.6 Seconds (9.4-12.1)
[2017-06-18 05:00] LABS: Activated Partial Thrombo Time 35.4 Seconds (26.0-36.0)
[2017-06-18 05:02] LABS: Platelet Count 95 K/mcL (140-400)
[2017-06-18 05:14] LABS: Potassium 4.6 mEq/L (3.5-5.1)
[2017-06-18 05:15] LABS: Calcium 7.6 mg/dL (8.6-10.3); Magnesium 2.2 mg/dL (1.6-2.6)
[2017-06-18 05:53] LABS: Lymphocytes # 0.9 K/mcL (0.6-4.6); Monocytes # 0.8 K/mcL (0.0-1.3); Neutrophils # 9.6 K/mcL (1.6-8.9)
[2017-06-18 05:54] LABS: Platelet Estimate Slight Decrease (Normal)
[2017-06-18] MEDS: Chlorhexidine Rinse 15 ML MOUTHWASH MM SCH ×2 (08:06→20:36)
[2017-06-18] MEDS: *HR* OxyCODONE/APAP 5/325 TABLET PO PRN ×2 (08:06→21:31)
[2017-06-18] MEDS: Docusate Oral Soln 100 MG/10 ML UDC PO SCH ×2 (08:45→20:36)
--- NOTE | 2017-06-18 08:53 | Cardiothoracic Progress Note ---
Date of Encounter: 06/18/17 Time of Encounter: 08:50 - Assessment and plan (1) CAD (coronary artery disease) Current Visit: No Status: Chronic The assessment and plan as outlined above was discussed with the patient and/or family members who expressed understanding and agreement. All questions were answered. The balloon pump was placed to 1-2. He seemed to tolerate it well and had a rise in blood pressure. Hopefully, I can remove the balloon pump this afternoon. I have consulted pulmonary in the ICU team for ICU care. I have also consulted renal for his chronic renal failure. He may require some type of Cookie or dialysis to improve his pulmonary edema. The patient seems to be stabilizing, however, he is still quite critically ill. Qualifiers: - Subjective Interval history: The patient is intubated and sedated. He appears to be waking up and seems to move all extremities well. Vital Signs, Last 4 Hours Temp Pulse Resp BP Pulse Ox 06/18/17 08:01 19 89/45 100 06/18/17 08:00 99.8 F H 74 14 80/55 95 Oxgyen Flow Rate Oxygen Flow Rate (LPM) 15 Clinical Data, last 8 Hours Output, Chest Tube Drainage 10 Amount [Mediastinal #1] Output, Chest Tube Drainage 190 Amount [Mediastinal #1] Output, Chest Tube Drainage 15 Amount [Mediastinal #2] Output, Chest Tube Drainage 76 Amount [Mediastinal #2] Output, Chest Tube Drainage 15 Amount [Mediastinal #3] Output, Chest Tube Drainage 22 Amount [Mediastinal #3] Output, Chest Tube Drainage 20 Amount [Mediastinal #4] Output, Chest Tube Drainage 60 Amount [Mediastinal #4] Weight 06/16/17 06/17/17 06/18/17 23:59 23:59 23:59 Weight 96.162 kg Lungs have scattered rales. Heart is in a normal sinus rhythm with a rate of 72. All incisions are healing well without signs of infection and the sternum is stable. Chest tube drainage is minimal and there is no air leak. Chest x-ray reveals bilateral pulmonary edema. - Labs 06/18/17 04:30 06/18/17 04:30 Lab Results, Last 24 hours 06/17/17 06/17/17 06/17/17 13:57 13:57 13:57 WBC 9.7 Hgb 12.9 Hct 37.8 Plt Count 129 L INR 1.6 APTT 33.3 Sodium 140 Potassium 3.9 Chloride 108 H Carbon Dioxide 26 BUN 35 H Creatinine 2.04 H Glucose 201 H Calcium 8.6 Magnesium 2.3 06/17/17 06/17/17 06/17/17 18:15 18:15 18:15 WBC 16.1 H D Hgb 9.6 L D Hct 28.8 L Plt Count 115 L INR 1.5 APTT 40.8 H Sodium 141 Potassium 3.8 Chloride 107 Carbon Dioxide 21 L BUN 35 H Creatinine 2.50 H Glucose 148 H Calcium 8.2 L Magnesium 2.5 06/18/17 06/18/17 06/18/17 00:25 00:25 00:25 WBC 15.1 H Hgb 10.5 L Hct 31.6 L Plt Count 118 L INR 1.6 APTT 50.4 H Sodium 138 Potassium 5.1 D Chloride 106 Carbon Dioxide 19 L BUN 37 H Creatinine 2.69 H Glucose 245 H Calcium 7.2 L Magnesium 06/18/17 06/18/17 06/18/17 04:30 04:30 04:30 WBC 11.6 H Hgb 10.8 L Hct 32.3 L Plt Count 95 L INR 1.5 APTT 35.4 Sodium 141 Potassium 4.6 Chloride 107 Carbon Dioxide 22 L BUN 38 H Creatinine 2.68 H Glucose 139 H Calcium 7.6 L Magnesium 2.2 Consult Discharge Plan - Plan Referrals: Analilia Montero, [employer] [Primary Care Provider] -
--- NOTE | 2017-06-18 10:22 | Nephrology Consult Note ---
Date of Encounter: 06/18/17 Time of Encounter: 09:50 Assessment and Plan (1) CKD (chronic kidney disease) stage 4, GFR 15-29 ml/min Current Visit: No Status: Chronic S/P CABG x 3. CXR-pulm edema. History CKD 4, baseline creat 2.2-2.5. Today creat 2.69. Oliguric, but did respond well to IV Lasix given early this morning. K+ 5.1. Will approach conservatively with additional Lasix 40mg every 12 hours times 2 doses and reevaluate. Avoid nephrotoxins. History of Present Illness - Reason for Consult Chronic Kidney Disease - History of Present Illness Mr. 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 Since 01/2017 baseline creat 2.2-2.5. Mr. Esquivel underwent CABG x 3 on Jun 17 and back to OR on Jun 18 for bleed/removal of clot. He is intubated, alert, cooperative FIO2 .80, 8 peep. Breath sounds harsh, no significant pereipheral edema. Has IABP and on one pressor at this time. CXR showing Pulmonary edema with layering effusions and basilar opacities, likely atelectasis. Oliguric, but responded well to Lasix given at 0200 this morning with 800cc urine output. Past Med Surg Social Fam HX - Past Medical History Medical history: aortic aneurysm, arthritis, coronary artery disease, diabetes, hyperlipidemia, hypertension, renal disease, TIA, other Psychiatric history: anxiety, depression - Past Surgical History Surgical History: angioplasty/stent, orthopedic, other, other - Social History Smoking Status: Former smoker Smokeless Tobacco Status: No Alcohol use: occasionally Drug use: none - Family History Father Family Member Ethnicity: Non- Living Status: Hx Family Cardiac Disorders: Yes ([place], CAD, HTN) Mother Family Member Ethnicity: Non- Living Status: Hx Family Cancer: Yes (Breast) Brother Family Member Ethnicity: Non- Living Status: Still Living Sister Family Member Ethnicity: Non- Living Status: Still Living Hx Family Endocrine Disorder: Yes (DM) Medications and Allergies Amlodipine Besylate 10 mg PO DAILY 04/02/16 [History] Atorvastatin Calcium [Lipitor] 20 mg PO HS 04/02/16 [History] Isosorbide MONOnitrate (24 HR) [Imdur] 30 mg PO DAILY 04/02/16 [History] Metoprolol Succinate 400 mg PO DAILY 04/02/16 [History] Buspirone HCl [Buspar] 7.5 mg PO BID 11/12/16 [History] Clopidogrel [Plavix] 75 mg PO DAILY 11/12/16 [History] Gabapentin [Neurontin] 300 mg PO HS 11/12/16 [History] Tramadol HCl [Ultram] 50 - 100 mg PO BID PRN 11/12/16 [History] Venlafaxine XR (24 HR) [Effexor Xr] 150 mg PO DAILY 11/12/16 [History] Ferrous Sulfate [Iron] 325 mg PO DAILY 02/13/17 [History] Cyanocobalamin (Vitamin B-12) [Vitamin B-12] 1,000 mcg SL DAILY 02/14/17 [ History] Trazodone HCl 100 mg PO HS 02/14/17 [History] Glimepiride [Amaryl] 2 mg PO DAILY 06/10/17 [History] Lisinopril [Zestril] 20 mg PO DAILY 06/10/17 [History] Nitroglycerin [Nitrostat] 0.4 mg SL Q5-6MIN PRN 06/10/17 [History] 3 Allergy/AdvReac Type Severity Reaction Status Date / Time No Known Allergies Allergy Verified 02/14/17 13:39 Review of Systems ROS unobtainable: due to endotracheal tube Exam - Vital Signs Vital signs: Initial Vital Signs Temp Pulse Resp BP Pulse Ox 98.2 F 67 18 148/84 93 06/17/17 06:50 06/17/17 06:50 06/17/17 06:50 06/17/17 06:50 06/17/17 06:50 Vital Signs - Last 8 Hours Temp Pulse Resp BP Pulse Ox 06/18/17 09:48 15 117/47 94 06/18/17 09:00 99.8 F H 77 15 65/47 89 06/18/17 08:01 19 89/45 100 06/18/17 08:00 99.8 F H 74 14 80/55 95 06/18/17 04:19 19 89/45 100 06/18/17 02:18 113/59 89 Intake and Output 06/17/17 06/18/17 06/18/17 23:59 07:59 15:59 Intake Total 2726.2 / 2726.2 1669 / 1669 Output Total 940 / 940 1408 / 1408 160 / 160 Balance 1786.2 / 1786.2 261 / 261 -160 / -160 Intake: IV Fluids 961.2 / 961.2 1669 / 1669 Vasostrict 40 UNIT In Dextrose 3 / 3 5% 100 ML @ 0.03 UNIT/MIN 4.59 mls/hr IV .[id number] [facility] [place] Rx#: [id number] 0.9 % Sodium Chloride 1,000 ML 1000 / 1000 @ 75 mls/hr IVC .[id number] [facility] [place] Rx #:[id number] EPINEPHrine 1 MG In Dextrose 5% 250 / 250 37 / 37 250 ML @ 2 MCG/MIN 30.12 mls/ hr IVC CONT [facility] [place] Rx#:[id number] Levophed 4 MG In Dextrose 5% 4 / 4 15 / 15 250 ML @ 8 MCG/MIN 30.48 mls/hr IVC CONT [facility] [place] Rx#:[id number] Cardene Premix 40mg/200ml 40 mg 10 / 10 In 200 ml @ 5 MG/HR 25 mls/hr IVC .Q8H [facility] [place] Rx#:[id number] ALBURX 5% 12.5 gm In 250 ml @ 500 / 500 500 / 500 999 mls/hr IVPB AD PRN Rx#: [id number] Ancef Premix DUPLEX 2,000 mg In 50 / 50 50 / 50 50 ml @ 100 mls/hr IVPB Q8H [facility] [place] Rx#:[id number] Ddavp 28.8 Mcg In 0.9 % Sodium 57.2 / 57.2 Chloride 50 ML @ 100 mls/hr IVPB ONCE [facility] [place] Rx#:[id number] Lasix 40 MG In 0.9 % Sodium 54 / 54 Chloride 50 ML @ 100 mls/hr IVPB ONCE ONE Rx#:[id number] Ancef 2,000 MG In Dextrose 5% 100 / 100 100 ML @ 200 mls/hr IVPB ONCE ONE Rx#:[id number] Blood Product 1765 / 1765 Cryoprecipitate Pooled Unit 0 / 0 [id number] Plasma Unit [id number] 300 / 300 Plasma Unit [id number] 360 / 360 Platelet Pheresis Lp Irr 1st / Unit [id number] Platelet Pheresis Lp Irr 1st Unit [id number] Rbcs Leuko Poor As-1 Unit 300 / 300 [id number] Rbcs Leuko Poor As-1 Unit 300 / 300 [id number] Output: Estimated Blood Loss 300 / 300 Catheter 100 / 100 760 / 760 45 / 45 Chest Tube Drainage 840 / 840 348 / 348 115 / 115 Mediastinal #1 100 / 100 190 / 190 30 / 30 Mediastinal #2 140 / 140 76 / 76 25 / 25 Mediastinal #3 400 / 400 22 / 22 20 / 20 Mediastinal #4 200 / 200 60 / 60 40 / 40 Other: Blood Glucose* 129 115 - General Appearance General appearance: well-developed, well-nourished, appears started age EENT: mucous membranes moist Neck: no JVD Additional Comments: harsh breath sounds Cardiology: no edema, regular rate, regular rhythm Gastrointestinal: hypoactive bowel sounds Integumentary: warm and dry Psychiatric: cooperative Results - Lab Results 06/18/17 04:30 06/18/17 04:30 Most recent lab results ABG pH 7.31 pH Units (7.32-7.45) L D 06/18/17 03:22 ABG pCO2 46 mmHg (35-45) H 06/18/17 03:22 ABG pO2 73 mmHg (85-104) L 06/18/17 03:22 ABG HCO3 23 mEq/L (21-27) 06/18/17 03:22 ABG O2 Saturation 93 % (95-98) L 06/18/17 03:22 Calcium 7.6 mg/dL (8.6-10.3) L 06/18/17 04:30 Magnesium 2.2 mg/dL (1.6-2.6) 06/18/17 04:30 Consult Discharge Plan - Plan Referrals: Analilia Montero, [employer] [Primary Care Provider] -
[2017-06-18] MEDS ORDERED: Furosemide 40 MG/4 ML VIAL ONE (10:42)
[2017-06-18] MEDS: Furosemide 40 MG/4 ML VIAL IVP SCH ×2 (10:45→21:26)
--- NOTE | 2017-06-18 11:20 | Pulmonology Consult Note ---
<Estuardo Franco - Last Filed: 06/18/17 11:38> Date of Encounter: 06/18/17 Time of Encounter: 11:15 Assessment and Plan (1) Pulmonary edema Current Visit: Yes Status: Acute Patient's last chest x-ray demonstrated the following: -Aortic balloon pump terminates over the expected location of the aortic knob, however the aortic knob is not well delineated. Recommend attention on follow- up. -Remaining life support devices are in appropriate position. -Pulmonary edema, layering effusions and basilar opacities, the latter of which is favored to reflect atelectasis. Patient's last pulse ox was 90. Plan: -Continue mechanical ventilation. -Patient received dose of IV Lasix today. -Continuous telemetry. -Continue to monitor vital signs. Qualifiers: Qualified Code(s): J81.0 - Acute pulmonary edema (2) LATIA (acute kidney injury) Current Visit: No Status: Acute Patient has a known history of chronic kidney disease and a known history of recurrent bladder neck obstruction. -Patient has been oliguric since his stay in the ICU. -Patient's last creatinine was 2.69. -Per nephrology, patient's creatinine is 2.2-2.5 at baseline. Plan: -Nephrology is currently on board. -Patient received a dose of Lasix today; produced 800 mL of urine. (3) Ventilator dependence Current Visit: Yes Status: Acute Patient is currently on ventilation. Last pulse ox was 90. (4) Hypotension Current Visit: Yes Status: Acute Patient is currently hypotensive; last blood pressure was 64/42. -Currently on aortic balloon pump. Plan: -Vasopressin drip. -Norepinephrine drip. -Epinephrine drip. -Normal saline 75 mL per hour. -Continuous telemetry. Qualifiers: Qualified Code(s): I95.9 - Hypotension, unspecified History of Present Illness Consult date: 06/18/17 Reason for consult: abnormal CXR/CT History of present illness: Patient is a 77-year-old male with CKD IV, diabetes mellitus, recurrent bladder neck obstruction, Aortic aneurysm, arthritis, TIA, HLD, HTN, and CAD s/p CABG presented to the hospital for CABG 3 on 06/17/17. Was transferred to the ICU due to hypotension. Initial suspicion was cardiac, benign. This was ruled out. 4 chest tubes were inserted. Central line was placed. Patient was taken back to the OR on 06/18/17 for the bleed/removal of clot in the heart. Patient is currently intubated. Patient has had low urine output since his stay in the ICU. Nephrology has been consult it. Received Lasix this morning and responded well; approximately 800 mL of urine output. Chest x-ray demonstrates pulmonary edema with layering effusions and basilar opacities. This is likely due to atelectasis. Currently on 3 pressors and aortic balloon pump. He remains hypotensive and intubated. Has been asleep this morning. Past Med Surg Social Fam HX - Past Medical History Medical history: aortic aneurysm, arthritis, coronary artery disease, diabetes, hyperlipidemia, hypertension, renal disease, TIA, other Psychiatric history: anxiety, depression - Past Surgical History Surgical History: angioplasty/stent, orthopedic, other, other - Social History Smoking Status: Former smoker Smokeless Tobacco Status: No Alcohol use: occasionally Drug use: none - Family History Father Family Member Ethnicity: Non- Living Status: Hx Family Cardiac Disorders: Yes (MA, CAD, HTN) Mother Family Member Ethnicity: Non- Living Status: Hx Family Cancer: Yes (Breast) Brother Family Member Ethnicity: Non- Living Status: Still Living Sister Family Member Ethnicity: Non- Living Status: Still Living Hx Family Endocrine Disorder: Yes (DM) Medications and Allergies Amlodipine Besylate 10 mg PO DAILY 04/02/16 [History] Atorvastatin Calcium [Lipitor] 20 mg PO HS 04/02/16 [History] Isosorbide MONOnitrate (24 HR) [Imdur] 30 mg PO DAILY 04/02/16 [History] Metoprolol Succinate 400 mg PO DAILY 04/02/16 [History] Buspirone HCl [Buspar] 7.5 mg PO BID 11/12/16 [History] Clopidogrel [Plavix] 75 mg PO DAILY 11/12/16 [History] Gabapentin [Neurontin] 300 mg PO HS 11/12/16 [History] Tramadol HCl [Ultram] 50 - 100 mg PO BID PRN 11/12/16 [History] Venlafaxine XR (24 HR) [Effexor Xr] 150 mg PO DAILY 11/12/16 [History] Ferrous Sulfate [Iron] 325 mg PO DAILY 02/13/17 [History] Cyanocobalamin (Vitamin B-12) [Vitamin B-12] 1,000 mcg SL DAILY 02/14/17 [ History] Trazodone HCl 100 mg PO HS 02/14/17 [History] Glimepiride [Amaryl] 2 mg PO DAILY 06/10/17 [History] Lisinopril [Zestril] 20 mg PO DAILY 06/10/17 [History] Nitroglycerin [Nitrostat] 0.4 mg SL Q5-6MIN PRN 06/10/17 [History] 3 Allergy/AdvReac Type Severity Reaction Status Date / Time No Known Allergies Allergy Verified 02/14/17 13:39 ROS unobtainable: due to endotracheal tube All Systems: A 10-system review of systems was performed and is negative for pertinent findings except as documented above in the HPI. Physical Examination Vital Signs: Vital Signs, Last 4 Hours Temp Pulse Resp BP Pulse Ox 06/18/17 11:00 99.8 F H 75 14 64/42 90 06/18/17 10:00 99.8 F H 74 14 72/52 92 06/18/17 09:48 15 117/47 94 06/18/17 09:00 99.8 F H 77 15 65/47 89 06/18/17 08:01 19 89/45 100 06/18/17 08:00 99.8 F H 74 14 80/55 95 General appearance: asleep Eyes: nonicteric ENT: oropharynx dry Neck: supple Auscultation: bilateral: diminished breath sounds, rales Cardiovascular: regular rate and rhythm Extremities: no cyanosis unable to assess due to mental status Ventilator Settings Ventilator Settings: Ventilator Settings, Last 8 Hours Ventilator Mode A/C Ventilator Mode A/C Ventilator Mode A/C Ventilator Mode A/C Ventilator Mode A/C Ventilator Mode A/C Ventilator Mode A/C Ventilator Tidal Volume 600 Setting Ventilator Tidal Volume 600 Setting Ventilator Tidal Volume 600 Setting Ventilator Tidal Volume 600 Setting Ventilator Tidal Volume 600 Setting Ventilator Tidal Volume 600 Setting Ventilator Tidal Volume 600 Setting Ventilator Respiratory Rate 14 Setting Ventilator Respiratory Rate 14 Setting Ventilator Respiratory Rate 14 Setting Ventilator Respiratory Rate 14 Setting Ventilator Respiratory Rate 14 Setting Ventilator Respiratory Rate 14 Setting Ventilator Respiratory Rate 14 Setting Actual Respiratory Rate 14 Actual Respiratory Rate 14 Actual Respiratory Rate 16 Actual Respiratory Rate 15 Actual Respiratory Rate 14 Actual Respiratory Rate 14 Actual Respiratory Rate 14 Positive End Expiratory 8 Pressure Positive End Expiratory 8 Pressure Positive End Expiratory 8 Pressure Positive End Expiratory 8 Pressure Positive End Expiratory 7.5 Pressure Positive End Expiratory 7.5 Pressure Positive End Expiratory 7.5 Pressure Peak Inspiratory Airway 21 Pressure Peak Inspiratory Airway 21 Pressure Peak Inspiratory Airway 20 Pressure Peak Inspiratory Airway 21 Pressure Peak Inspiratory Airway 22 Pressure Peak Inspiratory Airway 22 Pressure Peak Inspiratory Airway 22 Pressure Results - Laboratory Findings CBC and BMP: 06/18/17 04:30 06/18/17 04:30 ABG ABG pH 7.31 pH Units (7.32-7.45) L D 06/18/17 03:22 ABG pCO2 46 mmHg (35-45) H 06/18/17 03:22 ABG pO2 73 mmHg (85-104) L 06/18/17 03:22 ABG O2 Saturation 93 % (95-98) L 06/18/17 03:22 PT/INR, D-dimer PT 16.6 Seconds (9.4-12.1) H 06/18/17 04:30 Abnormal lab findings: Abnormal lab results WBC 11.6 K/mcL (4.3-11.1) H 06/18/17 04:30 RBC 3.76 M/mcL (4.19-5.50) L 06/18/17 04:30 Hgb 10.8 g/dL (12.9-16.9) L 06/18/17 04:30 Hct 32.3 % (37.5-50.1) L 06/18/17 04:30 RDW 14.6 % (11.5-14.5) H 06/18/17 04:30 Plt Count 95 K/mcL (140-400) L 06/18/17 04:30 Band Neutrophils % 13.0 % (0-4) H 06/18/17 04:30 Metamyelocytes % 2.0 % (0) H 06/18/17 04:30 Neutrophils # 9.6 K/mcL (1.6-8.9) H 06/18/17 04:30 Platelet Estimate Slight Decrease (Normal) L 06/18/17 04:30 PT 16.6 Seconds (9.4-12.1) H 06/18/17 04:30 ABG pH 7.31 pH Units (7.32-7.45) L D 06/18/17 03:22 ABG pCO2 46 mmHg (35-45) H 06/18/17 03:22 ABG pO2 73 mmHg (85-104) L 06/18/17 03:22 ABG O2 Saturation 93 % (95-98) L 06/18/17 03:22 ABG Base Excess -3 mEq/L (-2 to 3) L 06/18/17 03:22 ABG Hematocrit 37.0 % (37.5-50.1) L 06/17/17 13:30 VBG pH 7.31 pH Units (7.32-7.42) L 06/17/17 09:29 VBG pO2 51 mmHg (25-50) H 06/17/17 09:29 VBG Hematocrit 24.0 % (37.5-50.1) L 06/17/17 09:29 Glucose 192 mg/dL (60-95) H 06/17/17 13:30 Carbon Dioxide 22 mEq/L (23-29) L 06/18/17 04:30 BUN 38 mg/dL (8-23) H 06/18/17 04:30 Creatinine 2.68 mg/dL (0.70-1.30) H 06/18/17 04:30 Est GFR ( Amer) 28 (> 60) L 06/18/17 04:30 Est GFR (Non-Af Amer) 23 (> 60) L 06/18/17 04:30 Glucose 139 mg/dL (70-105) H 06/18/17 04:30 Whole Bld Glucose 159 mg/dl (65-95) H 06/17/17 09:29 POC Glucose 126 (58-89) H 06/18/17 10:36 Calculated Osmolality 303 (280-300) H 06/18/17 04:30 Calcium 7.6 mg/dL (8.6-10.3) L 06/18/17 04:30 Venous Ioniz Calcium 1.11 mmol/L (1.15-1.35) L 06/17/17 09:29 Arterial Blood Ionized Calcium 1.85 mmol/L (1.15-1.35) H 06/17/17 13:30 - Clinical Findings Intake & Output: Intake & Output 06/17/17 06/18/17 06/18/17 23:59 07:59 15:59 Intake Total 2726.2 / 2726.2 1669 / 1669 Output Total 940 / 940 1408 / 1408 295 / 295 Balance 1786.2 / 1786.2 261 / 261 -295 / -295 Consult Discharge Plan - Plan Referrals: Analilia Montero, NÉSTOR [Primary Care Provider] - <Brandon Dahl - Last Filed: 06/18/17 15:50> Date of Encounter: 06/18/17 All Systems: A 10-system review of systems was performed and is negative for pertinent findings except as documented above in the HPI. Physical Examination Vital Signs: Vital Signs, Last 4 Hours Temp Pulse Resp BP Pulse Ox 06/18/17 15:00 70 14 139/71 92 06/18/17 14:00 99.8 F H 70 14 104/59 92 06/18/17 13:05 14 104/45 92 06/18/17 13:00 99.8 F H 70 14 61/42 92 06/18/17 12:00 99.8 F H 72 14 78/55 91 Ventilator Settings Ventilator Settings: Ventilator Settings, Last 8 Hours Ventilator Mode A/C Ventilator Mode A/C Ventilator Mode A/C Ventilator Mode A/C Ventilator Mode A/C Ventilator Mode A/C Ventilator Mode A/C Ventilator Mode A/C Ventilator Mode A/C Ventilator Mode A/C Ventilator Mode A/C Ventilator Mode A/C Ventilator Tidal Volume 600 Setting Ventilator Tidal Volume 600 Setting Ventilator Tidal Volume 600 Setting Ventilator Tidal Volume 600 Setting Ventilator Tidal Volume 600 Setting Ventilator Tidal Volume 600 Setting Ventilator Tidal Volume 600 Setting Ventilator Tidal Volume 600 Setting Ventilator Tidal Volume 600 Setting Ventilator Tidal Volume 600 Setting Ventilator Tidal Volume 600 Setting Ventilator Tidal Volume 600 Setting Ventilator Respiratory Rate 14 Setting Ventilator Respiratory Rate 14 Setting Ventilator Respiratory Rate 14 Setting Ventilator Respiratory Rate 14 Setting Ventilator Respiratory Rate 14 Setting Ventilator Respiratory Rate 14 Setting Ventilator Respiratory Rate 14 Setting Ventilator Respiratory Rate 14 Setting Ventilator Respiratory Rate 14 Setting Ventilator Respiratory Rate 14 Setting Ventilator Respiratory Rate 14 Setting Ventilator Respiratory Rate 14 Setting Actual Respiratory Rate 14 Actual Respiratory Rate 15 Actual Respiratory Rate 14 Actual Respiratory Rate 14 Actual Respiratory Rate 14 Actual Respiratory Rate 14 Actual Respiratory Rate 14 Actual Respiratory Rate 14 Actual Respiratory Rate 16 Actual Respiratory Rate 15 Actual Respiratory Rate 14 Actual Respiratory Rate 14 Positive End Expiratory 8 Pressure Positive End Expiratory 8 Pressure Positive End Expiratory 8 Pressure Positive End Expiratory 8 Pressure Positive End Expiratory 8 Pressure Positive End Expiratory 8 Pressure Positive End Expiratory 8 Pressure Positive End Expiratory 8 Pressure Positive End Expiratory 8 Pressure Positive End Expiratory 8 Pressure Positive End Expiratory 7.5 Pressure Positive End Expiratory 7.5 Pressure Peak Inspiratory Airway 24 Pressure Peak Inspiratory Airway 22 Pressure Peak Inspiratory Airway 21 Pressure Peak Inspiratory Airway 22 Pressure Peak Inspiratory Airway 22 Pressure Peak Inspiratory Airway 22 Pressure Peak Inspiratory Airway 21 Pressure Peak Inspiratory Airway 21 Pressure Peak Inspiratory Airway 20 Pressure Peak Inspiratory Airway 21 Pressure Peak Inspiratory Airway 22 Pressure Peak Inspiratory Airway 22 Pressure Results - Laboratory Findings CBC and BMP: 06/18/17 04:30 06/18/17 04:30 ABG ABG pH 7.31 pH Units (7.32-7.45) L D 06/18/17 03:22 ABG pCO2 46 mmHg (35-45) H 06/18/17 03:22 ABG pO2 73 mmHg (85-104) L 06/18/17 03:22 ABG O2 Saturation 93 % (95-98) L 06/18/17 03:22 PT/INR, D-dimer PT 16.6 Seconds (9.4-12.1) H 06/18/17 04:30 Abnormal lab findings: Abnormal lab results WBC 11.6 K/mcL (4.3-11.1) H 06/18/17 04:30 RBC 3.76 M/mcL (4.19-5.50) L 06/18/17 04:30 Hgb 10.8 g/dL (12.9-16.9) L 06/18/17 04:30 Hct 32.3 % (37.5-50.1) L 06/18/17 04:30 RDW 14.6 % (11.5-14.5) H 06/18/17 04:30 Plt Count 95 K/mcL (140-400) L 06/18/17 04:30 Band Neutrophils % 13.0 % (0-4) H 06/18/17 04:30 Metamyelocytes % 2.0 % (0) H 06/18/17 04:30 Neutrophils # 9.6 K/mcL (1.6-8.9) H 06/18/17 04:30 Platelet Estimate Slight Decrease (Normal) L 06/18/17 04:30 PT 16.6 Seconds (9.4-12.1) H 06/18/17 04:30 ABG pH 7.31 pH Units (7.32-7.45) L D 06/18/17 03:22 ABG pCO2 46 mmHg (35-45) H 06/18/17 03:22 ABG pO2 73 mmHg (85-104) L 06/18/17 03:22 ABG O2 Saturation 93 % (95-98) L 06/18/17 03:22 ABG Base Excess -3 mEq/L (-2 to 3) L 06/18/17 03:22 ABG Hematocrit 37.0 % (37.5-50.1) L 06/17/17 13:30 VBG pH 7.31 pH Units (7.32-7.42) L 06/17/17 09:29 VBG pO2 51 mmHg (25-50) H 06/17/17 09:29 VBG Hematocrit 24.0 % (37.5-50.1) L 06/17/17 09:29 Glucose 192 mg/dL (60-95) H 06/17/17 13:30 Carbon Dioxide 22 mEq/L (23-29) L 06/18/17 04:30 BUN 38 mg/dL (8-23) H 06/18/17 04:30 Creatinine 2.68 mg/dL (0.70-1.30) H 06/18/17 04:30 Est GFR ( Amer) 28 (> 60) L 06/18/17 04:30 Est GFR (Non-Af Amer) 23 (> 60) L 06/18/17 04:30 Glucose 139 mg/dL (70-105) H 06/18/17 04:30 Whole Bld Glucose 159 mg/dl (65-95) H 06/17/17 09:29 POC Glucose 105 (58-89) H 06/18/17 14:25 Calculated Osmolality 303 (280-300) H 06/18/17 04:30 Calcium 7.6 mg/dL (8.6-10.3) L 06/18/17 04:30 Venous Ioniz Calcium 1.11 mmol/L (1.15-1.35) L 06/17/17 09:29 Arterial Blood Ionized Calcium 1.85 mmol/L (1.15-1.35) H 06/17/17 13:30 - Clinical Findings Intake & Output: Intake & Output 06/17/17 06/18/17 06/18/17 23:59 07:59 15:59 Intake Total 2726.2 / 2726.2 1669 / 1669 Output Total 940 / 940 1408 / 1408 580 / 580 Balance 1786.2 / 1786.2 261 / 261 -580 / -580 - Attending Attestation I examined this patient and my medical decision-making was reviewed with the Resident Physician. I agree with the documented findings, disposition and treatment plan as described except to the extent set forth below. Patient seen and examined. Labs, radiology, chart personally reviewed. Agree with resident's history and physical, assessment, plan with following comments: LINE PATROLLER: Patient follows commands, Pulmonary: Patient remained on a ventilator and I have adjusted his FiO2 and PEEP, however he is not ready for extubation until he is hemodynamically stable. This is discussed with primary team. Cardiovascular: Patient remained in shock postoperatively and is on vasopressor as well as balloon pump. GI: Nutrition per dietary and GI prophylaxis per routine Heme: DVT prophylaxis per routine Renal; urine out put and renal funtion reviewed. Nephrology has been consulted and diuresis with the help to get patient off ventilator sooner if possible Endorcine: blood glucose is monitored Lines: all lines checked and no evidence of infections Skin: skin care to prevent pressure ulcers per nursing routine care I spent 32 min of Critical Care time with this patient. It involved decision making of high complexity to assess, manipulate, and support vital organ system failure and/or to prevent further life threatening deterioration of the patient' s condition. The time involved in the performance of separately reportable procedures was not counted toward critical care time.
[2017-06-18] MEDS: FentaNYL (PF) 1,000 MCG in 0.9 % Sodium Chloride 80 ML IVC SCH (12:36)
[2017-06-18] MEDS ORDERED: CeFAZolin Premix DUPLEX 2,000 MG/50 ML BAG IVPB SCH (13:30)
[2017-06-18] MEDS ORDERED: Dextrose Gel 15 GM/37.5 ML TUBE PO PRN ×2 (14:58)
[2017-06-18] MEDS ORDERED: D5% in Water 1,000 ML IVC PRN (14:58)
[2017-06-18] MEDS ORDERED: Heparin 1,000 UNITS/500 mL 500 ML ONE (16:27)
[2017-06-18 16:36] LABS: ABG Base Excess 0 mEq/L (-2 to 3); ABG HCO3 25 mEq/L (21-27); ABG Oxygen Saturation 89 % (95-98); ABG PCO2 38 mmHg (35-45); ABG PH 7.42 pH Units (7.32-7.45); ABG PO2 55 mmHg (85-104); ABG TCO2 26 mEq/L (20-26); Blood Gas Modality ASSIST CONTROL; Blood Gas PEEP 8 cm H2O; Blood Gas Respiration Rate 14; Blood Gas VT 600 cc
[2017-06-18] MEDS: Insulin LISPRO 300 UNITS/3 ML VIAL SQ SCH ×2 (16:36→20:43)
[2017-06-19] MEDS: Vasopressin 40 UNIT in D5% in Water 100 ML IV SCH ×2 (00:18→22:05)
[2017-06-19] MEDS: *HR* Morphine 2 MG/ML SYRINGE IVP PRN ×4 (00:19→22:05)
[2017-06-19] MEDS: Insulin LISPRO 300 UNITS/3 ML VIAL SQ SCH ×6 (00:26→19:55)
[2017-06-19] MEDS: EPINEPHrine 1 MG in D5% in Water 250 ML IVC SCH (03:10)
[2017-06-19] MEDS: niCARdipine 40 MG/200 ML MLS IVC SCH ×3 (03:11→19:41)
[2017-06-19] MEDS: Norepinephrine 4 MG in D5% in Water 250 ML IVC SCH (03:11)
[2017-06-19 03:42] LABS: Basophils % 0.1 %; Mean Corpuscular Hemoglobin 28.7 pg (28.0-33.3)
[2017-06-19 03:44] LABS: Hemoglobin 9.9 g/dL (12.9-16.9); Immature Granulocytes % 0.3 % (0-4); Immature Platelets 6.9 % (1.1-6.1); Lymphocytes # 1.4 K/mcL (0.6-4.6); Mean Platelet Volume 11.1 fL (9.4-12.4); Monocytes # 0.7 K/mcL (0.0-1.3); Monocytes % 7.3 %; Nucleated Red Blood Cells 0.2 /100 WBC (0); Red Blood Count 3.45 M/mcL (4.19-5.50); Segmented Neutrophils % 78.3 %
[2017-06-19 03:48] LABS: Neutrophils # 7.8 K/mcL (1.6-8.9); Platelet Count 66 K/mcL (140-400)
[2017-06-19 03:53] LABS: ABG Base Excess -1 mEq/L (-2 to 3); ABG HCO3 25 mEq/L (21-27); ABG Oxygen Saturation 92 % (95-98); ABG PCO2 42 mmHg (35-45); ABG PH 7.38 pH Units (7.32-7.45); ABG PO2 66 mmHg (85-104); ABG TCO2 26 mEq/L (20-26); Blood Gas Modality ASSIST CONTROL; Blood Gas PEEP 8 cm H2O; Blood Gas Respiration Rate 14; Blood Gas VT 600 cc
[2017-06-19 04:08] LABS: Calcium 7.4 mg/dL (8.6-10.3); Potassium 4.5 mEq/L (3.5-5.1)
[2017-06-19] MEDS: FentaNYL (PF) 1,000 MCG in 0.9 % Sodium Chloride 80 ML IVC SCH ×2 (04:45→16:13)
--- NOTE | 2017-06-19 07:55 | Pulmonology Progress Note ---
<Estuardo Franco - Last Filed: 06/19/17 07:52> Date of Encounter: 06/19/17 Time of Encounter: 08:00 Assessment and Plan (1) Pulmonary edema Current Visit: Yes Status: Acute Patient's last CXR demonstrated the following: -Pulmonary edema -layering effusions and basilar opacities suggestive of atelectasis. -Patient's last pulse ox was 89. Plan: -Continue mechanical ventilation. -Patient received dose of IV Lasix today. -Continuous telemetry. -Continue to monitor vital signs. Qualifiers: Qualified Code(s): J81.0 - Acute pulmonary edema (2) LATIA (acute kidney injury) Current Visit: No Status: Acute Patient has a known history of CKD and a known hx of recurrent bladder neck obstruction. -Patient has been oliguric since his stay in the ICU. -Patient's last creatinine was 2.69. -Per nephrology, patient's creatinine is 2.2-2.5 at baseline. Plan: -Nephrology is currently on board. -Monitor urine output closely. (3) Ventilator dependence Current Visit: Yes Status: Acute (4) Hypotension Current Visit: Yes Status: Acute Qualifiers: Qualified Code(s): I95.9 - Hypotension, unspecified Objective PUL Vital signs: Last Vital Signs Temp 98 F 06/19/17 04:00 Pulse 70 06/19/17 06:00 Resp 15 06/19/17 06:06 BP 112/49 06/19/17 06:06 Pulse Ox 89 06/19/17 06:06 General appearance: no acute distress, asleep Eyes: nonicteric ENT: oropharynx dry Auscultation: bilateral: diminished breath sounds unable to assess due to mental status Ventilator Settings Ventilator Settings: Ventilator Settings, Last 8 Hours Ventilator Mode A/C Ventilator Mode A/C Ventilator Mode A/C Ventilator Mode A/C Ventilator Mode A/C Ventilator Mode A/C Ventilator Mode A/C Ventilator Mode A/C Ventilator Mode A/C Ventilator Mode A/C Ventilator Tidal Volume 600 Setting Ventilator Tidal Volume 600 Setting Ventilator Tidal Volume 600 Setting Ventilator Tidal Volume 600 Setting Ventilator Tidal Volume 600 Setting Ventilator Tidal Volume 600 Setting Ventilator Tidal Volume 600 Setting Ventilator Tidal Volume 600 Setting Ventilator Tidal Volume 600 Setting Ventilator Tidal Volume 600 Setting Ventilator Respiratory Rate 14 Setting Ventilator Respiratory Rate 14 Setting Ventilator Respiratory Rate 14 Setting Ventilator Respiratory Rate 14 Setting Ventilator Respiratory Rate 14 Setting Ventilator Respiratory Rate 14 Setting Ventilator Respiratory Rate 14 Setting Ventilator Respiratory Rate 14 Setting Ventilator Respiratory Rate 14 Setting Ventilator Respiratory Rate 14 Setting Actual Respiratory Rate 14 Actual Respiratory Rate 15 Actual Respiratory Rate 21 Actual Respiratory Rate 15 Actual Respiratory Rate 15 Actual Respiratory Rate 15 Actual Respiratory Rate 14 Actual Respiratory Rate 14 Actual Respiratory Rate 15 Positive End Expiratory 8 Pressure Positive End Expiratory 8 Pressure Positive End Expiratory 8 Pressure Positive End Expiratory 8 Pressure Positive End Expiratory 8 Pressure Positive End Expiratory 8 Pressure Positive End Expiratory 8 Pressure Positive End Expiratory 8 Pressure Positive End Expiratory 8 Pressure Positive End Expiratory 8 Pressure Peak Inspiratory Airway 22 Pressure Peak Inspiratory Airway 19 Pressure Peak Inspiratory Airway 18 Pressure Peak Inspiratory Airway 21 Pressure Peak Inspiratory Airway 22 Pressure Peak Inspiratory Airway 22 Pressure Peak Inspiratory Airway 23 Pressure Peak Inspiratory Airway 18 Pressure Peak Inspiratory Airway 22 Pressure Results - Laboratory Findings CBC and BMP: 06/19/17 03:20 06/19/17 03:20 ABG ABG pH 7.38 pH Units (7.32-7.45) 06/19/17 03:49 ABG pCO2 42 mmHg (35-45) 06/19/17 03:49 ABG pO2 66 mmHg (85-104) L 06/19/17 03:49 ABG O2 Saturation 92 % (95-98) L 06/19/17 03:49 PT/INR, D-dimer PT 16.6 Seconds (9.4-12.1) H 06/18/17 04:30 Abnormal lab findings: Abnormal lab results RBC 3.45 M/mcL (4.19-5.50) L 06/19/17 03:20 Hgb 9.9 g/dL (12.9-16.9) L 06/19/17 03:20 Hct 30.0 % (37.5-50.1) L 06/19/17 03:20 RDW 15.0 % (11.5-14.5) H 06/19/17 03:20 Plt Count 66 K/mcL (140-400) L 06/19/17 03:20 Band Neutrophils % 13.0 % (0-4) H 06/18/17 04:30 Metamyelocytes % 2.0 % (0) H 06/18/17 04:30 Nucleated RBCs/100 WBC 0.2 /100 WBC (0) H 06/19/17 03:20 Platelet Estimate Slight Decrease (Normal) L 06/18/17 04:30 Immature Plt Fraction 6.9 % (1.1-6.1) H 06/19/17 03:20 PT 16.6 Seconds (9.4-12.1) H 06/18/17 04:30 ABG pO2 66 mmHg (85-104) L 06/19/17 03:49 ABG O2 Saturation 92 % (95-98) L 06/19/17 03:49 ABG Hematocrit 37.0 % (37.5-50.1) L 06/17/17 13:30 VBG pH 7.31 pH Units (7.32-7.42) L 06/17/17 09:29 VBG pO2 51 mmHg (25-50) H 06/17/17 09:29 VBG Hematocrit 24.0 % (37.5-50.1) L 06/17/17 09:29 Glucose 192 mg/dL (60-95) H 06/17/17 13:30 Chloride 108 mEq/L (98-107) H 06/19/17 03:20 BUN 52 mg/dL (8-23) H 06/19/17 03:20 Creatinine 3.27 mg/dL (0.70-1.30) H 06/19/17 03:20 Est GFR ( Amer) 22 (> 60) L 06/19/17 03:20 Est GFR (Non-Af Amer) 19 (> 60) L 06/19/17 03:20 Glucose 197 mg/dL (70-105) H 06/19/17 03:20 Whole Bld Glucose 159 mg/dl (65-95) H 06/17/17 09:29 POC Glucose 200 (58-89) H 06/19/17 03:31 Calculated Osmolality 312 (280-300) H 06/19/17 03:20 Calcium 7.4 mg/dL (8.6-10.3) L 06/19/17 03:20 Venous Ioniz Calcium 1.11 mmol/L (1.15-1.35) L 06/17/17 09:29 Arterial Blood Ionized Calcium 1.85 mmol/L (1.15-1.35) H 06/17/17 13:30 - Clinical Findings Intake & Output: Intake & Output 06/18/17 06/18/17 06/19/17 15:59 23:59 07:59 Intake Total 1039 / 1039 100 / 100 Output Total 580 / 580 720 / 720 735 / 735 Balance -580 / -580 319 / 319 -635 / -635 Weight 106.1 kg Consult Discharge Plan - Plan Referrals: Analilia Montero, OUTSIDE [employer] LATHE OPERATOR [Primary Care Provider] - <Brandon Dahl - Last Filed: 06/19/17 09:45> Date of Encounter: 06/19/17 Objective PUL Vital signs: Last Vital Signs Temp 97.0 F L 06/19/17 08:00 Pulse 124 06/19/17 08:31 Resp 15 06/19/17 08:31 BP 157/75 06/19/17 08:31 Pulse Ox 93 06/19/17 08:31 Ventilator Settings Ventilator Settings: Ventilator Settings, Last 8 Hours Ventilator Mode A/C Ventilator Mode A/C Ventilator Mode A/C Ventilator Mode A/C Ventilator Mode A/C Ventilator Mode A/C Ventilator Mode A/C Ventilator Mode A/C Ventilator Mode A/C Ventilator Mode A/C Ventilator Tidal Volume 600 Setting Ventilator Tidal Volume 600 Setting Ventilator Tidal Volume 600 Setting Ventilator Tidal Volume 600 Setting Ventilator Tidal Volume 600 Setting Ventilator Tidal Volume 600 Setting Ventilator Tidal Volume 600 Setting Ventilator Tidal Volume 600 Setting Ventilator Tidal Volume 600 Setting Ventilator Tidal Volume 600 Setting Ventilator Respiratory Rate 14 Setting Ventilator Respiratory Rate 14 Setting Ventilator Respiratory Rate 14 Setting Ventilator Respiratory Rate 14 Setting Ventilator Respiratory Rate 14 Setting Ventilator Respiratory Rate 14 Setting Ventilator Respiratory Rate 14 Setting Ventilator Respiratory Rate 14 Setting Ventilator Respiratory Rate 14 Setting Ventilator Respiratory Rate 14 Setting Actual Respiratory Rate 14 Actual Respiratory Rate 14 Actual Respiratory Rate 14 Actual Respiratory Rate 15 Actual Respiratory Rate 21 Actual Respiratory Rate 15 Actual Respiratory Rate 15 Actual Respiratory Rate 15 Actual Respiratory Rate 14 Positive End Expiratory 8 Pressure Positive End Expiratory 8 Pressure Positive End Expiratory 8 Pressure Positive End Expiratory 8 Pressure Positive End Expiratory 8 Pressure Positive End Expiratory 8 Pressure Positive End Expiratory 8 Pressure Positive End Expiratory 8 Pressure Positive End Expiratory 8 Pressure Positive End Expiratory 8 Pressure Peak Inspiratory Airway 22 Pressure Peak Inspiratory Airway 22 Pressure Peak Inspiratory Airway 22 Pressure Peak Inspiratory Airway 19 Pressure Peak Inspiratory Airway 18 Pressure Peak Inspiratory Airway 21 Pressure Peak Inspiratory Airway 22 Pressure Peak Inspiratory Airway 22 Pressure Peak Inspiratory Airway 23 Pressure Results - Laboratory Findings CBC and BMP: 06/19/17 03:20 06/19/17 03:20 ABG ABG pH 7.38 pH Units (7.32-7.45) 06/19/17 03:49 ABG pCO2 42 mmHg (35-45) 06/19/17 03:49 ABG pO2 66 mmHg (85-104) L 06/19/17 03:49 ABG O2 Saturation 92 % (95-98) L 06/19/17 03:49 PT/INR, D-dimer PT 16.6 Seconds (9.4-12.1) H 06/18/17 04:30 Abnormal lab findings: Abnormal lab results RBC 3.45 M/mcL (4.19-5.50) L 06/19/17 03:20 Hgb 9.9 g/dL (12.9-16.9) L 06/19/17 03:20 Hct 30.0 % (37.5-50.1) L 06/19/17 03:20 RDW 15.0 % (11.5-14.5) H 06/19/17 03:20 Plt Count 66 K/mcL (140-400) L 06/19/17 03:20 Band Neutrophils % 13.0 % (0-4) H 06/18/17 04:30 Metamyelocytes % 2.0 % (0) H 06/18/17 04:30 Nucleated RBCs/100 WBC 0.2 /100 WBC (0) H 06/19/17 03:20 Platelet Estimate Slight Decrease (Normal) L 06/18/17 04:30 Immature Plt Fraction 6.9 % (1.1-6.1) H 06/19/17 03:20 PT 16.6 Seconds (9.4-12.1) H 06/18/17 04:30 ABG pO2 66 mmHg (85-104) L 06/19/17 03:49 ABG O2 Saturation 92 % (95-98) L 06/19/17 03:49 ABG Hematocrit 37.0 % (37.5-50.1) L 06/17/17 13:30 VBG pH 7.31 pH Units (7.32-7.42) L 06/17/17 09:29 VBG pO2 51 mmHg (25-50) H 06/17/17 09:29 VBG Hematocrit 24.0 % (37.5-50.1) L 06/17/17 09:29 Glucose 192 mg/dL (60-95) H 06/17/17 13:30 Chloride 108 mEq/L (98-107) H 06/19/17 03:20 BUN 52 mg/dL (8-23) H 06/19/17 03:20 Creatinine 3.27 mg/dL (0.70-1.30) H 06/19/17 03:20 Est GFR ( Amer) 22 (> 60) L 06/19/17 03:20 Est GFR (Non-Af Amer) 19 (> 60) L 06/19/17 03:20 Glucose 197 mg/dL (70-105) H 06/19/17 03:20 Whole Bld Glucose 159 mg/dl (65-95) H 06/17/17 09:29 POC Glucose 131 (58-89) H 06/19/17 07:55 Calculated Osmolality 312 (280-300) H 06/19/17 03:20 Calcium 7.4 mg/dL (8.6-10.3) L 06/19/17 03:20 Venous Ioniz Calcium 1.11 mmol/L (1.15-1.35) L 06/17/17 09:29 Arterial Blood Ionized Calcium 1.85 mmol/L (1.15-1.35) H 06/17/17 13:30 - Clinical Findings Intake & Output: Intake & Output 06/18/17 06/19/17 06/19/17 23:59 07:59 15:59 Intake Total 1039 / 1039 100 / 100 400 / 400 Output Total 720 / 720 735 / 735 340 / 340 Balance 319 / 319 -635 / -635 60 / 60 Weight 106.1 kg - Attending Attestation I examined this patient and my medical decision-making was reviewed with the Resident Physician. I agree with the documented findings, disposition and treatment plan as described except to the extent set forth below. Patient seen and examined. Labs, radiology, chart personally reviewed. Agree with resident's history and physical, assessment, plan with following comments: TUBE TELLER: Patient follows commands, Pulmonary: Patient is still requiring high FiO2 and PEEP and not ready for spontaneous breathing trial and extubation. I suspect this is pulmonary edema and will stop IV fluid and patient might benefit from Cookie if nephrology agrees. Cardiovascular: stable . Patient has chest tubes which was managed by cardiothoracic. GI: Nutrition per dietary and GI prophylaxis per routine Heme: DVT prophylaxis per routine Renal; as above Endorcine: blood glucose is monitored Lines: all lines checked and no evidence of infections Skin: skin care to prevent pressure ulcers per nursing routine care
--- NOTE | 2017-06-19 09:42 | Nephrology Progress Note ---
Date of Encounter: 06/19/17 Time of Encounter: 09:31 - Assessment and Plan (1) LATIA (acute kidney injury) Current Visit: No Status: Acute 1. ARF sec to hypotension. Has underlying stage IV COPD -Cr has trended up from 2.6 to 3.2, pt is nonoliguric -hold Lasix and IV fluids for now. Monitor renal function - Serum potassium and bicarbonate are stable 2. Hypotension resolved. BP stable and vasopressors have been discontinued cont supportive care, avoid nephrotoxins and IV contrast - Subjective Principal diagnosis: f/u of chronic kidney disease stage IV Interval history: 77 year old male with CKD 4 baseline creatinine 2.2-2.5. 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 Currently intubated on IV fentanyl. FiO2 80%. He was oliguric yesterday, received iv Lasix. In the last 28 hours vasopressors have been DC'd, IABP removed. BP is stable. pt is nonoliguric acute urine output of 1.5 L yesterday, 875 mL last night Chest x-ray this morning ; near-complete resolution of bilateral pleural effusions and bibasilar opacities, perihilar opacities are improving. Pt is arousable, follows commands Objective - Vital Signs Vital signs: Vital Signs Temp Pulse Resp BP Pulse Ox 06/19/17 08:31 124 15 157/75 93 06/19/17 08:00 97.0 F L 06/19/17 07:21 14 157/75 93 06/19/17 06:06 15 112/49 89 06/19/17 06:00 70 15 118/53 88 06/19/17 05:00 74 21 153/66 91 06/19/17 04:13 15 142/67 97 06/19/17 04:00 98 F 63 15 151/69 95 06/19/17 03:00 98.3 F 66 15 142/64 92 06/19/17 02:00 60 14 130/60 94 06/19/17 01:00 61 14 126/58 95 06/19/17 00:01 15 149/70 100 06/19/17 00:00 62 15 136/63 96 06/18/17 23:00 98.3 F 63 14 128/63 94 06/18/17 22:00 63 14 128/63 94 06/18/17 21:54 15 139/66 91 06/18/17 21:00 67 15 158/76 94 06/18/17 20:00 98.6 F 64 16 147/71 94 06/18/17 19:41 16 151/76 90 06/18/17 18:48 68 15 140/70 90 06/18/17 18:00 75 14 138/69 90 06/18/17 17:05 14 138/71 89 06/18/17 17:00 99.5 F 71 14 144/73 87 06/18/17 16:00 99.5 F 68 14 123/65 87 06/18/17 15:32 14 113/60 89 06/18/17 15:00 70 14 139/71 92 06/18/17 14:00 99.8 F H 70 14 104/59 92 06/18/17 13:05 14 104/45 92 06/18/17 13:00 99.8 F H 70 14 61/42 92 06/18/17 12:00 99.8 F H 72 14 78/55 91 06/18/17 11:36 14 112/55 92 06/18/17 11:00 99.8 F H 75 14 64/42 90 06/18/17 10:00 99.8 F H 74 14 72/52 92 06/18/17 09:48 15 117/47 94 Intake and Output 06/18/17 06/19/17 06/19/17 23:59 07:59 15:59 Intake Total 1039 / 1039 100 / 100 400 / 400 Output Total 720 / 720 735 / 735 340 / 340 Balance 319 / 319 -635 / -635 60 / 60 Intake: IV Fluids 1039 / 1039 100 / 100 400 / 400 0.9 % Sodium Chloride 1,000 ML 1000 / 1000 400 / 400 @ 75 mls/hr IVC .[id number] [facility] Rx #:[id number] FentaNYL (PF) 1,000 MCG In 0.9 100 / 100 % Sodium Chloride 80 ML @ Titrate IVC CONT [facility] Rx#: [id number] Levophed 4 MG In Dextrose 5% 39 / 39 250 ML @ 8 MCG/MIN 30.48 mls/hr IVC [facility] Rx#:[id number] Oral 0 / 0 Output: Catheter 560 / 560 625 / 625 250 / 250 Chest Tube Drainage 160 / 160 110 / 110 90 / 90 Mediastinal #1 60 / 60 40 / 40 10 / 10 Mediastinal #2 50 / 50 30 / 30 30 / 30 Mediastinal #3 40 / 40 20 / 20 50 / 50 Mediastinal #4 10 / 10 20 / 20 0 / 0 Other: Weight 106.1 kg Blood Glucose* 118 200 131 Patient Weight 06/19/17 23:59 Weight 106.1 kg - General Appearance Exam: CVS; s1s2 present, regular RESP; decreased air entry, clear anteriorly ABD; soft, NT, BS present EXT; trace edema 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 Follows commands - Lab 06/19/17 03:20 06/19/17 03:20 Most recent lab results ABG pH 7.38 pH Units (7.32-7.45) 06/19/17 03:49 ABG pCO2 42 mmHg (35-45) 06/19/17 03:49 ABG pO2 66 mmHg (85-104) L 06/19/17 03:49 ABG HCO3 25 mEq/L (21-27) 06/19/17 03:49 ABG O2 Saturation 92 % (95-98) L 06/19/17 03:49 Calcium 7.4 mg/dL (8.6-10.3) L 06/19/17 03:20 Magnesium 2.2 mg/dL (1.6-2.6) 06/18/17 04:30 Consult Discharge Plan - Plan Referrals: Analilia Montero, FEE CLERK [Primary Care Provider] -
[2017-06-19] MEDS: Chlorhexidine Rinse 15 ML MOUTHWASH MM SCH ×2 (10:16→19:45)
[2017-06-19] MEDS: Docusate Oral Soln 100 MG/10 ML UDC PO SCH ×2 (10:16→19:45)
--- NOTE | 2017-06-19 10:25 | Pulmonology Progress Note ---
<Estuardo Franco - Last Filed: 06/19/17 10:27> Date of Encounter: 06/19/17 Time of Encounter: 09:15 Assessment and Plan (1) Pulmonary edema Current Visit: Yes Status: Acute Patient's last CXR demonstrated the following: -Pulmonary edema -layering effusions and basilar opacities suggestive of atelectasis. -Patient's last pulse ox was 93; improved from yesterday. Plan: -Continue mechanical ventilation. -Patient received dose of IV Lasix today. -Continuous telemetry. -Continue to monitor vital signs. Qualifiers: Qualified Code(s): J81.0 - Acute pulmonary edema (2) LATIA (acute kidney injury) Current Visit: No Status: Acute Patient has a known history of CKD and a known hx of recurrent bladder neck obstruction. -Patient was oliguric when he first came to the ICU. -Per nephrology, patient's creatinine is 2.2-2.5 at baseline. -Creatinine is elevated compared to yesterday at 3.27. Plan: -Nephrology is currently on board. -Has been receiving Lasix and is on IV fluids. -Monitor urine output closely. (3) Ventilator dependence Current Visit: Yes Status: Acute Patient is still on mechanical ventilation. -Still not stable enough to extubate. -Continue to monitor vital signs. (4) Hypotension Current Visit: Yes Status: Acute Patient was initially hypotensive upon arrival to the ICU. -Patient was placed on the following: Epinephrine, norepinephrine, and vasopressin. -Patient's blood pressure today is 120/60. -Aortic balloon pump has been discontinued. -Continue to closely monitor vital signs. Qualifiers: Qualified Code(s): I95.9 - Hypotension, unspecified Subjective Principal diagnosis: f/u of chronic kidney disease stage IV Interval history: Patient was seen and examined at bedside this morning. Patient currently looks much better than he did yesterday. He is responsive to verbal stimuli. He is able to nod his head yes and shake his head no. Appears to be alert. Reports being mildly uncomfortable. Objective PUL Vital signs: Last Vital Signs Temp 97.0 F L 06/19/17 08:00 Pulse 69 06/19/17 10:00 Resp 15 06/19/17 10:00 BP 120/60 06/19/17 10:00 Pulse Ox 93 06/19/17 10:00 General appearance: no acute distress, appears uncomfortable Eyes: nonicteric ENT: oropharynx dry Auscultation: bilateral: diminished breath sounds, wheezes, rales, rhonchi Cardiovascular: regular rate and rhythm normal mental status affect normal Ventilator Settings Ventilator Settings: Ventilator Settings, Last 8 Hours Ventilator Mode A/C Ventilator Mode A/C Ventilator Mode A/C Ventilator Mode A/C Ventilator Mode A/C Ventilator Mode A/C Ventilator Mode A/C Ventilator Mode A/C Ventilator Mode A/C Ventilator Mode A/C Ventilator Mode A/C Ventilator Tidal Volume 600 Setting Ventilator Tidal Volume 600 Setting Ventilator Tidal Volume 600 Setting Ventilator Tidal Volume 600 Setting Ventilator Tidal Volume 600 Setting Ventilator Tidal Volume 600 Setting Ventilator Tidal Volume 600 Setting Ventilator Tidal Volume 600 Setting Ventilator Tidal Volume 600 Setting Ventilator Tidal Volume 600 Setting Ventilator Tidal Volume 600 Setting Ventilator Respiratory Rate 14 Setting Ventilator Respiratory Rate 14 Setting Ventilator Respiratory Rate 14 Setting Ventilator Respiratory Rate 14 Setting Ventilator Respiratory Rate 14 Setting Ventilator Respiratory Rate 14 Setting Ventilator Respiratory Rate 14 Setting Ventilator Respiratory Rate 14 Setting Ventilator Respiratory Rate 14 Setting Ventilator Respiratory Rate 14 Setting Ventilator Respiratory Rate 14 Setting Actual Respiratory Rate 14 Actual Respiratory Rate 14 Actual Respiratory Rate 14 Actual Respiratory Rate 14 Actual Respiratory Rate 14 Actual Respiratory Rate 15 Actual Respiratory Rate 21 Actual Respiratory Rate 15 Actual Respiratory Rate 15 Actual Respiratory Rate 15 Positive End Expiratory 8 Pressure Positive End Expiratory 8 Pressure Positive End Expiratory 8 Pressure Positive End Expiratory 8 Pressure Positive End Expiratory 8 Pressure Positive End Expiratory 8 Pressure Positive End Expiratory 8 Pressure Positive End Expiratory 8 Pressure Positive End Expiratory 8 Pressure Positive End Expiratory 8 Pressure Positive End Expiratory 8 Pressure Peak Inspiratory Airway 22 Pressure Peak Inspiratory Airway 22 Pressure Peak Inspiratory Airway 22 Pressure Peak Inspiratory Airway 22 Pressure Peak Inspiratory Airway 22 Pressure Peak Inspiratory Airway 19 Pressure Peak Inspiratory Airway 18 Pressure Peak Inspiratory Airway 21 Pressure Peak Inspiratory Airway 22 Pressure Peak Inspiratory Airway 22 Pressure Results - Laboratory Findings CBC and BMP: 06/19/17 03:20 06/19/17 03:20 ABG ABG pH 7.38 pH Units (7.32-7.45) 06/19/17 03:49 ABG pCO2 42 mmHg (35-45) 06/19/17 03:49 ABG pO2 66 mmHg (85-104) L 06/19/17 03:49 ABG O2 Saturation 92 % (95-98) L 06/19/17 03:49 PT/INR, D-dimer PT 16.6 Seconds (9.4-12.1) H 06/18/17 04:30 Abnormal lab findings: Abnormal lab results RBC 3.45 M/mcL (4.19-5.50) L 06/19/17 03:20 Hgb 9.9 g/dL (12.9-16.9) L 06/19/17 03:20 Hct 30.0 % (37.5-50.1) L 06/19/17 03:20 RDW 15.0 % (11.5-14.5) H 06/19/17 03:20 Plt Count 66 K/mcL (140-400) L 06/19/17 03:20 Band Neutrophils % 13.0 % (0-4) H 06/18/17 04:30 Metamyelocytes % 2.0 % (0) H 06/18/17 04:30 Nucleated RBCs/100 WBC 0.2 /100 WBC (0) H 06/19/17 03:20 Platelet Estimate Slight Decrease (Normal) L 06/18/17 04:30 Immature Plt Fraction 6.9 % (1.1-6.1) H 06/19/17 03:20 PT 16.6 Seconds (9.4-12.1) H 06/18/17 04:30 ABG pO2 66 mmHg (85-104) L 06/19/17 03:49 ABG O2 Saturation 92 % (95-98) L 06/19/17 03:49 ABG Hematocrit 37.0 % (37.5-50.1) L 06/17/17 13:30 VBG pH 7.31 pH Units (7.32-7.42) L 06/17/17 09:29 VBG pO2 51 mmHg (25-50) H 06/17/17 09:29 VBG Hematocrit 24.0 % (37.5-50.1) L 06/17/17 09:29 Glucose 192 mg/dL (60-95) H 06/17/17 13:30 Chloride 108 mEq/L (98-107) H 06/19/17 03:20 BUN 52 mg/dL (8-23) H 06/19/17 03:20 Creatinine 3.27 mg/dL (0.70-1.30) H 06/19/17 03:20 Est GFR ( Amer) 22 (> 60) L 06/19/17 03:20 Est GFR (Non-Af Amer) 19 (> 60) L 06/19/17 03:20 Glucose 197 mg/dL (70-105) H 06/19/17 03:20 Whole Bld Glucose 159 mg/dl (65-95) H 06/17/17 09:29 POC Glucose 131 (58-89) H 06/19/17 07:55 Calculated Osmolality 312 (280-300) H 06/19/17 03:20 Calcium 7.4 mg/dL (8.6-10.3) L 06/19/17 03:20 Venous Ioniz Calcium 1.11 mmol/L (1.15-1.35) L 06/17/17 09:29 Arterial Blood Ionized Calcium 1.85 mmol/L (1.15-1.35) H 06/17/17 13:30 - Clinical Findings Intake & Output: Intake & Output 06/18/17 06/19/17 06/19/17 23:59 07:59 15:59 Intake Total 1039 / 1039 100 / 100 400 / 400 Output Total 720 / 720 735 / 735 340 / 340 Balance 319 / 319 -635 / -635 60 / 60 Weight 106.1 kg Consult Discharge Plan - Plan Referrals: Analilia Montero, [employer] WORKER [Primary Care Provider] - <Brandon Dahl - Last Filed: 06/19/17 10:43> Date of Encounter: 06/19/17 Objective PUL Vital signs: Last Vital Signs Temp 97.0 F L 06/19/17 08:00 Pulse 69 06/19/17 10:00 Resp 15 06/19/17 10:00 BP 120/60 06/19/17 10:00 Pulse Ox 93 06/19/17 10:00 Ventilator Settings Ventilator Settings: Ventilator Settings, Last 8 Hours Ventilator Mode A/C Ventilator Mode A/C Ventilator Mode A/C Ventilator Mode A/C Ventilator Mode A/C Ventilator Mode A/C Ventilator Mode A/C Ventilator Mode A/C Ventilator Mode A/C Ventilator Mode A/C Ventilator Mode A/C Ventilator Mode A/C Ventilator Tidal Volume 600 Setting Ventilator Tidal Volume 600 Setting Ventilator Tidal Volume 600 Setting Ventilator Tidal Volume 600 Setting Ventilator Tidal Volume 600 Setting Ventilator Tidal Volume 600 Setting Ventilator Tidal Volume 600 Setting Ventilator Tidal Volume 600 Setting Ventilator Tidal Volume 600 Setting Ventilator Tidal Volume 600 Setting Ventilator Tidal Volume 600 Setting Ventilator Tidal Volume 600 Setting Ventilator Respiratory Rate 14 Setting Ventilator Respiratory Rate 14 Setting Ventilator Respiratory Rate 14 Setting Ventilator Respiratory Rate 14 Setting Ventilator Respiratory Rate 14 Setting Ventilator Respiratory Rate 14 Setting Ventilator Respiratory Rate 14 Setting Ventilator Respiratory Rate 14 Setting Ventilator Respiratory Rate 14 Setting Ventilator Respiratory Rate 14 Setting Ventilator Respiratory Rate 14 Setting Ventilator Respiratory Rate 14 Setting Actual Respiratory Rate 14 Actual Respiratory Rate 14 Actual Respiratory Rate 14 Actual Respiratory Rate 14 Actual Respiratory Rate 14 Actual Respiratory Rate 14 Actual Respiratory Rate 15 Actual Respiratory Rate 21 Actual Respiratory Rate 15 Actual Respiratory Rate 15 Actual Respiratory Rate 15 Positive End Expiratory 8 Pressure Positive End Expiratory 8 Pressure Positive End Expiratory 8 Pressure Positive End Expiratory 8 Pressure Positive End Expiratory 8 Pressure Positive End Expiratory 8 Pressure Positive End Expiratory 8 Pressure Positive End Expiratory 8 Pressure Positive End Expiratory 8 Pressure Positive End Expiratory 8 Pressure Positive End Expiratory 8 Pressure Positive End Expiratory 8 Pressure Peak Inspiratory Airway 22 Pressure Peak Inspiratory Airway 23 Pressure Peak Inspiratory Airway 22 Pressure Peak Inspiratory Airway 22 Pressure Peak Inspiratory Airway 22 Pressure Peak Inspiratory Airway 22 Pressure Peak Inspiratory Airway 19 Pressure Peak Inspiratory Airway 18 Pressure Peak Inspiratory Airway 21 Pressure Peak Inspiratory Airway 22 Pressure Peak Inspiratory Airway 22 Pressure Results - Laboratory Findings CBC and BMP: 06/19/17 03:20 06/19/17 03:20 ABG ABG pH 7.38 pH Units (7.32-7.45) 06/19/17 03:49 ABG pCO2 42 mmHg (35-45) 06/19/17 03:49 ABG pO2 66 mmHg (85-104) L 06/19/17 03:49 ABG O2 Saturation 92 % (95-98) L 06/19/17 03:49 PT/INR, D-dimer PT 16.6 Seconds (9.4-12.1) H 06/18/17 04:30 Abnormal lab findings: Abnormal lab results RBC 3.45 M/mcL (4.19-5.50) L 06/19/17 03:20 Hgb 9.9 g/dL (12.9-16.9) L 06/19/17 03:20 Hct 30.0 % (37.5-50.1) L 06/19/17 03:20 RDW 15.0 % (11.5-14.5) H 06/19/17 03:20 Plt Count 66 K/mcL (140-400) L 06/19/17 03:20 Band Neutrophils % 13.0 % (0-4) H 06/18/17 04:30 Metamyelocytes % 2.0 % (0) H 06/18/17 04:30 Nucleated RBCs/100 WBC 0.2 /100 WBC (0) H 06/19/17 03:20 Platelet Estimate Slight Decrease (Normal) L 06/18/17 04:30 Immature Plt Fraction 6.9 % (1.1-6.1) H 06/19/17 03:20 PT 16.6 Seconds (9.4-12.1) H 06/18/17 04:30 ABG pO2 66 mmHg (85-104) L 06/19/17 03:49 ABG O2 Saturation 92 % (95-98) L 06/19/17 03:49 ABG Hematocrit 37.0 % (37.5-50.1) L 06/17/17 13:30 VBG pH 7.31 pH Units (7.32-7.42) L 06/17/17 09:29 VBG pO2 51 mmHg (25-50) H 06/17/17 09:29 VBG Hematocrit 24.0 % (37.5-50.1) L 06/17/17 09:29 Glucose 192 mg/dL (60-95) H 06/17/17 13:30 Chloride 108 mEq/L (98-107) H 06/19/17 03:20 BUN 52 mg/dL (8-23) H 06/19/17 03:20 Creatinine 3.27 mg/dL (0.70-1.30) H 06/19/17 03:20 Est GFR ( Amer) 22 (> 60) L 06/19/17 03:20 Est GFR (Non-Af Amer) 19 (> 60) L 06/19/17 03:20 Glucose 197 mg/dL (70-105) H 06/19/17 03:20 Whole Bld Glucose 159 mg/dl (65-95) H 06/17/17 09:29 POC Glucose 131 (58-89) H 06/19/17 07:55 Calculated Osmolality 312 (280-300) H 06/19/17 03:20 Calcium 7.4 mg/dL (8.6-10.3) L 06/19/17 03:20 Venous Ioniz Calcium 1.11 mmol/L (1.15-1.35) L 06/17/17 09:29 Arterial Blood Ionized Calcium 1.85 mmol/L (1.15-1.35) H 06/17/17 13:30 - Clinical Findings Intake & Output: Intake & Output 06/18/17 06/19/17 06/19/17 23:59 07:59 15:59 Intake Total 1039 / 1039 100 / 100 400 / 400 Output Total 720 / 720 735 / 735 340 / 340 Balance 319 / 319 -635 / -635 60 / 60 Weight 106.1 kg - Attending Attestation I examined this patient and my medical decision-making was reviewed with the Resident Physician. I agree with the documented findings, disposition and treatment plan as described except to the extent set forth below. Patient seen and examined. Labs, radiology, chart personally reviewed. Agree with resident's history and physical, assessment, plan with following comments: TAX REPRESENTATIVE: Patient follows commands, Pulmonary: Patient is still requiring high FiO2 and PEEP and not ready for spontaneous breathing trial and extubation. I suspect this is pulmonary edema and will stop IV fluid and patient might benefit from Cookie if nephrology agrees. Cardiovascular: stable . Patient has chest tubes which was managed by cardiothoracic. GI: Nutrition per dietary and GI prophylaxis per routine Heme: DVT prophylaxis per routine Renal; as above Endorcine: blood glucose is monitored Lines: all lines checked and no evidence of infections Skin: skin care to prevent pressure ulcers per nursing routine care There are 2 pulmonary progress notes, it is duplicate.
--- NOTE | 2017-06-19 11:44 | Cardiothoracic Progress Note ---
Date of Encounter: 06/19/17 Time of Encounter: 11:41 - Subjective Interval history: Patient had uneventful night according to nursing staff at bedside. Having some complaints of incisional pain. Vital Signs, Last 4 Hours Temp Pulse Resp BP Pulse Ox 06/19/17 10:00 69 15 120/60 93 06/19/17 09:34 14 120/60 94 06/19/17 09:00 69 15 138/66 93 06/19/17 08:31 124 15 157/75 93 06/19/17 08:00 97.0 F L Oxgyen Flow Rate Oxygen Flow Rate (LPM) 15 Clinical Data, last 8 Hours Output, Chest Tube Drainage 10 Amount [Mediastinal #1] Output, Chest Tube Drainage 30 Amount [Mediastinal #2] Output, Chest Tube Drainage 50 Amount [Mediastinal #3] Output, Chest Tube Drainage 0 Amount [Mediastinal #4] Weight 06/17/17 06/18/17 06/19/17 23:59 23:59 23:59 Weight 96.162 kg 106.1 kg - Physical Examination General: Conversant, No Apparent Distress HEENT: Atraumatic, Normocephaly (ET tube in place), Trachea midline, Other Neck: No JVD, Normal carotid pulses Cardiac: Reg Rate and Rhythm, Normal S1 and S2, No Murmur Incision: Other (Sternal incision clean and dry) Sternum: Stable Chest tubes: Minimal drainage Pacing Wires: In place Lungs: Normal Breath Sounds, No Wheeze, Rales, Rhonchi Neuro: Alert and responsive, No focal deficits noted, Cranial nerves intact, Motor nerves intact, Sensory nerves intact Vascular: Normal capillary refill - Labs 06/19/17 03:20 06/19/17 03:20 Lab Results, Last 24 hours 06/19/17 06/19/17 03:20 03:20 WBC 10.0 Hgb 9.9 L Hct 30.0 L Plt Count 66 L Sodium 141 Potassium 4.5 Chloride 108 H Carbon Dioxide 24 BUN 52 H Creatinine 3.27 H Glucose 197 H Calcium 7.4 L Consult Discharge Plan - Plan Referrals: Analilia Montero, [employer]OR T[employer]ER CE[employer]AR [Primary Care Provider] -
[2017-06-19] MEDS: *HR* OxyCODONE/APAP 5/325 TABLET PO PRN ×2 (12:05→22:05)
[2017-06-19 12:37] LABS: Basophils % 0.1 %; Hemoglobin 9.7 g/dL (12.9-16.9); Segmented Neutrophils % 77.2 %
[2017-06-19 12:39] LABS: Eosinophils % 0.2 %; Hematocrit 29.3 % (37.5-50.1); Immature Granulocytes % 0.4 % (0-4); Immature Platelets 7.2 % (1.1-6.1); Lymphocytes # 1.5 K/mcL (0.6-4.6); Lymphocytes % 15.4 %; Mean Corpuscular HGB Conc 33.1 g/dL (31.6-35.5); Mean Corpuscular Hemoglobin 28.9 pg (28.0-33.3); Mean Corpuscular Volume 87.2 fL (83.0-100.0); Mean Platelet Volume 11.1 fL (9.4-12.4); Monocytes # 0.7 K/mcL (0.0-1.3); Monocytes % 6.7 %; Neutrophils # 7.6 K/mcL (1.6-8.9); Red Blood Count 3.36 M/mcL (4.19-5.50)
[2017-06-19 12:49] LABS: Platelet Count 71 K/mcL (140-400)
[2017-06-19 12:53] LABS: Calcium 7.4 mg/dL (8.6-10.3); Potassium 4.3 mEq/L (3.5-5.1)
[2017-06-19 14:37] LABS: Bilirubin,Urine Negative (Negative); Blood,Urine Moderate (Negative); Clarity,Urine Clear (Clear); Color,Urine Yellow (Yellow); Glucose,Urine (UA) 250 mg/dL (Normal); Ketones,Urine Negative (Negative); PH,Urine 5.5 pH Units (5.0-8.0); Specific Gravity,Urine 1.025 (1.010-1.025)
[2017-06-19 14:38] LABS: Leukocyte Esterase,Urine Negative (Negative); Nitrite,Urine Negative (Negative); Protein,Urine >=300 mg/dL (Neg-Trace); Urobilinogen,Urine Normal (Normal)
[2017-06-20] MEDS: Insulin LISPRO 300 UNITS/3 ML VIAL SQ SCH ×7 (00:54→23:59)
[2017-06-20] MEDS: niCARdipine 40 MG/200 ML MLS IVC SCH ×3 (02:13→19:13)
[2017-06-20] MEDS: EPINEPHrine 1 MG in D5% in Water 250 ML IVC SCH ×2 (02:13→23:59)
[2017-06-20] MEDS: Norepinephrine 4 MG in D5% in Water 250 ML IVC SCH (02:13)
[2017-06-20] MEDS: FentaNYL (PF) 1,000 MCG in 0.9 % Sodium Chloride 80 ML IVC SCH (03:30)
[2017-06-20] MEDS: *HR* Morphine 2 MG/ML SYRINGE IVP PRN ×5 (03:39→19:21)
[2017-06-20 04:12] LABS: Albumin 2.5 g/dL (3.5-5.7); Calcium 7.4 mg/dL (8.6-10.3); Potassium 3.6 mEq/L (3.5-5.1); Uric Acid 6.1 mg/dL (2.3-7.6)
[2017-06-20] MEDS ORDERED: Nitroglycerin 25 MG/250 ML INFUS..BTL IVC ONE (07:42)
[2017-06-20] MEDS: Nitroglycerin 25 MG/250 ML INFUS..BTL IVC SCH (07:43)
--- NOTE | 2017-06-20 08:27 | Cardiothoracic Progress Note ---
Date of Encounter: 06/20/17 Time of Encounter: 08:25 - Assessment and plan (1) S/P CABG x 3 Current Visit: Yes Status: Acute Doing well clinically, minimal chest tube drainage plan for chest tube removal today. Weaning from ventilator with plans for extubation later today depending on pulmonary critical care (2) CAD (coronary artery disease) Current Visit: No Status: Chronic The assessment and plan as outlined above was discussed with the patient and/or family members who expressed understanding and agreement. All questions were answered. Qualifiers: (3) HTN (hypertension) Current Visit: No Status: Chronic The assessment and plan as outlined above was discussed with the patient and/or family members who expressed understanding and agreement. All questions were answered. Qualifiers: Hypertension type: essential hypertension Qualified Code(s): I10 - Essential (primary) hypertension - Subjective Interval history: Patient was seen and examined. He had an uneventful night according to the nursing staff. Notably his blood pressure is elevated and he was starting on some vasodilators. He is currently awake responsive and complaining of some chest discomfort. We discussed plans for removing his chest tubes today. He has weaned significantly from his ventilatory settings and is now on 40% FiO2. Vital Signs, Last 4 Hours Pulse Resp BP Pulse Ox 06/20/17 08:00 91 15 145/74 92 06/20/17 07:00 73 16 155/92 97 06/20/17 06:04 15 171/78 97 06/20/17 06:00 75 14 182/90 99 06/20/17 05:00 75 14 158/70 96 Oxgyen Flow Rate Oxygen Flow Rate (LPM) 15 Clinical Data, last 8 Hours Output, Chest Tube Drainage 0 Amount [Mediastinal #1] Output, Chest Tube Drainage 30 Amount [Mediastinal #1] Output, Chest Tube Drainage 10 Amount [Mediastinal #2] Output, Chest Tube Drainage 20 Amount [Mediastinal #2] Output, Chest Tube Drainage 4 Amount [Mediastinal #3] Output, Chest Tube Drainage 0 Amount [Mediastinal #3] Output, Chest Tube Drainage 0 Amount [Mediastinal #4] Output, Chest Tube Drainage 0 Amount [Mediastinal #4] Output, Chest Tube Drainage 0 Amount [Mediastinal #4] Weight 06/18/17 06/19/17 06/20/17 23:59 23:59 23:59 Weight 106.1 kg 101.1 kg - Physical Examination General: Conversant, No Apparent Distress, Well developed, Well nourished HEENT: Atraumatic, Normocephaly (Endotracheal tube in place), Other Cardiac: Reg Rate and Rhythm, No Murmur Incision: Other (Incisions dressed clean and dry ) Sternum: Other (Sternum intact without instability dressing intact) Chest tubes: Other ([address] minimal serous drainage no air leak) Pacing Wires: In place Lungs: Normal Breath Sounds Neuro: Alert and responsive Vascular: Normal capillary refill - Labs 06/19/17 12:30 06/20/17 03:35 Lab Results, Last 24 hours 06/19/17 06/19/17 06/20/17 12:30 12:34 03:35 WBC 9.9 Hgb 9.7 L Hct 29.3 L Plt Count 71 L Sodium 141 145 Potassium 4.3 3.6 Chloride 108 H 108 H Carbon Dioxide 23 27 BUN 57 H 55 H Creatinine 3.34 H 2.89 H Glucose 182 H 128 H Calcium 7.4 L 7.4 L - VTE Documentation of Mechanical Device: Graduated compression elastic hosiery Consult Discharge Plan - Plan Referrals: Analilia Montero, BRUSH OPERATOR [Primary Care Provider] -
[2017-06-20] MEDS: *HR* OxyCODONE/APAP 5/325 TABLET PO PRN ×3 (08:49→21:16)
[2017-06-20] MEDS: Docusate Oral Soln 100 MG/10 ML UDC PO SCH ×2 (08:50→19:22)
[2017-06-20] MEDS: Chlorhexidine Rinse 15 ML MOUTHWASH MM SCH ×2 (08:50→19:22)
--- NOTE | 2017-06-20 08:57 | Pulmonology Progress Note ---
<Estuardo Franco - Last Filed: 06/20/17 09:17> Date of Encounter: 06/20/17 Time of Encounter: 09:00 Assessment and Plan (1) Pulmonary edema Current Visit: Yes Status: Acute Patient's last CXR demonstrated the following: -Pulmonary edema -layering effusions and basilar opacities suggestive of atelectasis. Plan: -Continuous telemetry. -Continue to monitor vital signs. -Chest tube removal today per CT Qualifiers: Qualified Code(s): J81.0 - Acute pulmonary edema (2) LAITA (acute kidney injury) Current Visit: No Status: Acute Patient has a known history of CKD and a known hx of recurrent bladder neck obstruction. -Patient was oliguric when he first came to the ICU. -Per nephrology, patient's creatinine is 2.2-2.5 at baseline. -Creatinine 2.89; improved from yesterday. Plan: -Nephrology is currently on board. -Has been receiving Lasix and is on IV fluids. -Monitor urine output closely. (3) Ventilator dependence Current Visit: Yes Status: Acute Extubated. -Continue to monitor vital signs. (4) Hypotension Current Visit: Yes Status: Acute Patient was initially hypotensive upon arrival to the ICU. -Patient was placed on the following: Epinephrine, norepinephrine, and vasopressin. -Aortic balloon pump has been discontinued. -Continue to closely monitor vital signs. Qualifiers: Qualified Code(s): I95.9 - Hypotension, unspecified Subjective Principal diagnosis: f/u of chronic kidney disease stage IV Interval history: Patient was seen and examined at bedside this morning. Patient currently looks much better than he did yesterday. Currently asleep. Pallor is improving. Objective PUL Vital signs: Last Vital Signs Temp 97.6 F 06/20/17 03:13 Pulse 91 06/20/17 08:00 Resp 15 06/20/17 08:00 BP 145/74 06/20/17 08:00 Pulse Ox 92 06/20/17 08:00 General appearance: no acute distress Eyes: nonicteric ENT: oropharynx dry Auscultation: bilateral: diminished breath sounds Cardiovascular: regular rate and rhythm Ventilator Settings Ventilator Settings: Ventilator Settings, Last 8 Hours Ventilator Mode A/C Ventilator Mode A/C Ventilator Mode A/C Ventilator Mode A/C Ventilator Mode A/C Ventilator Mode A/C Ventilator Mode A/C Ventilator Mode A/C Ventilator Mode A/C Ventilator Mode A/C Ventilator Mode A/C Ventilator Tidal Volume 600 Setting Ventilator Tidal Volume 600 Setting Ventilator Tidal Volume 600 Setting Ventilator Tidal Volume 600 Setting Ventilator Tidal Volume 600 Setting Ventilator Tidal Volume 600 Setting Ventilator Tidal Volume 600 Setting Ventilator Tidal Volume 600 Setting Ventilator Tidal Volume 600 Setting Ventilator Tidal Volume 600 Setting Ventilator Tidal Volume 600 Setting Ventilator Respiratory Rate 14 Setting Ventilator Respiratory Rate 14 Setting Ventilator Respiratory Rate 14 Setting Ventilator Respiratory Rate 14 Setting Ventilator Respiratory Rate 14 Setting Ventilator Respiratory Rate 14 Setting Ventilator Respiratory Rate 14 Setting Ventilator Respiratory Rate 14 Setting Ventilator Respiratory Rate 14 Setting Ventilator Respiratory Rate 14 Setting Ventilator Respiratory Rate 14 Setting Actual Respiratory Rate 15 Actual Respiratory Rate 16 Actual Respiratory Rate 15 Actual Respiratory Rate 14 Actual Respiratory Rate 14 Actual Respiratory Rate 14 Actual Respiratory Rate 14 Actual Respiratory Rate 14 Actual Respiratory Rate 14 Actual Respiratory Rate 14 Actual Respiratory Rate 14 Positive End Expiratory 8 Pressure Positive End Expiratory 8 Pressure Positive End Expiratory 8 Pressure Positive End Expiratory 8 Pressure Positive End Expiratory 8 Pressure Positive End Expiratory 8 Pressure Positive End Expiratory 8 Pressure Positive End Expiratory 8 Pressure Positive End Expiratory 8 Pressure Positive End Expiratory 8 Pressure Positive End Expiratory 8 Pressure Peak Inspiratory Airway 28 Pressure Peak Inspiratory Airway 31 Pressure Peak Inspiratory Airway 28 Pressure Peak Inspiratory Airway 27 Pressure Peak Inspiratory Airway 25 Pressure Peak Inspiratory Airway 24 Pressure Peak Inspiratory Airway 25 Pressure Results - Laboratory Findings CBC and BMP: 06/19/17 12:30 06/20/17 03:35 ABG ABG pH 7.38 pH Units (7.32-7.45) 06/19/17 03:49 ABG pCO2 42 mmHg (35-45) 06/19/17 03:49 ABG pO2 66 mmHg (85-104) L 06/19/17 03:49 ABG O2 Saturation 92 % (95-98) L 06/19/17 03:49 PT/INR, D-dimer PT 16.6 Seconds (9.4-12.1) H 06/18/17 04:30 Abnormal lab findings: Abnormal lab results RBC 3.36 M/mcL (4.19-5.50) L 06/19/17 12:30 Hgb 9.7 g/dL (12.9-16.9) L 06/19/17 12:30 Hct 29.3 % (37.5-50.1) L 06/19/17 12:30 RDW 15.0 % (11.5-14.5) H 06/19/17 12:30 Plt Count 71 K/mcL (140-400) L 06/19/17 12:30 Band Neutrophils % 13.0 % (0-4) H 06/18/17 04:30 Metamyelocytes % 2.0 % (0) H 06/18/17 04:30 Nucleated RBCs/100 WBC 0.2 /100 WBC (0) H 06/19/17 03:20 Platelet Estimate Slight Decrease (Normal) L 06/18/17 04:30 Immature Plt Fraction 7.2 % (1.1-6.1) H 06/19/17 12:30 PT 16.6 Seconds (9.4-12.1) H 06/18/17 04:30 ABG pO2 66 mmHg (85-104) L 06/19/17 03:49 ABG O2 Saturation 92 % (95-98) L 06/19/17 03:49 ABG Hematocrit 37.0 % (37.5-50.1) L 06/17/17 13:30 VBG pH 7.31 pH Units (7.32-7.42) L 06/17/17 09:29 VBG pO2 51 mmHg (25-50) H 06/17/17 09:29 VBG Hematocrit 24.0 % (37.5-50.1) L 06/17/17 09:29 Glucose 192 mg/dL (60-95) H 06/17/17 13:30 Chloride 108 mEq/L (98-107) H 06/20/17 03:35 BUN 55 mg/dL (8-23) H 06/20/17 03:35 Creatinine 2.89 mg/dL (0.70-1.30) H 06/20/17 03:35 Est GFR ( Amer) 26 (> 60) L 06/20/17 03:35 Est GFR (Non-Af Amer) 21 (> 60) L 06/20/17 03:35 Glucose 128 mg/dL (70-105) H 06/20/17 03:35 Whole Bld Glucose 159 mg/dl (65-95) H 06/17/17 09:29 POC Glucose 135 (58-89) H 06/20/17 08:14 Calculated Osmolality 317 (280-300) H 06/20/17 03:35 Calcium 7.4 mg/dL (8.6-10.3) L 06/20/17 03:35 Venous Ioniz Calcium 1.11 mmol/L (1.15-1.35) L 06/17/17 09:29 Albumin 2.5 g/dL (3.5-5.7) L 06/20/17 03:35 Arterial Blood Ionized Calcium 1.85 mmol/L (1.15-1.35) H 06/17/17 13:30 Urine Protein >=300 mg/dL (Neg-Trace) H 06/19/17 14:05 Urine Glucose (UA) 250 mg/dL (Normal) H 06/19/17 14:05 Urine Blood Moderate (Negative) H 06/19/17 14:05 - Clinical Findings Intake & Output: Intake & Output 06/19/17 06/20/17 06/20/17 23:59 07:59 15:59 Intake Total 100 / 100 100 / 100 Output Total 690 / 690 644 / 644 Balance -590 / -590 -544 / -544 Weight 101.1 kg - VTE Documentation of Mechanical Device: Graduated compression elastic hosiery Consult Discharge Plan - Plan Referrals: Analilia Montero, HORTICULTURAL FARM MANAGER [Primary Care Provider] - <Brandon Dahl - Last Filed: 06/20/17 10:10> Date of Encounter: 06/20/17 Objective PUL Vital signs: Last Vital Signs Temp 98.8 F 06/20/17 08:15 Pulse 98 06/20/17 09:00 Resp 16 06/20/17 09:00 BP 107/58 06/20/17 09:00 Pulse Ox 90 06/20/17 09:00 Ventilator Settings Ventilator Settings: Ventilator Settings, Last 8 Hours Ventilator Mode A/C Ventilator Mode A/C Ventilator Mode A/C Ventilator Mode A/C Ventilator Mode A/C Ventilator Mode A/C Ventilator Mode A/C Ventilator Mode A/C Ventilator Tidal Volume 600 Setting Ventilator Tidal Volume 600 Setting Ventilator Tidal Volume 600 Setting Ventilator Tidal Volume 600 Setting Ventilator Tidal Volume 600 Setting Ventilator Tidal Volume 600 Setting Ventilator Tidal Volume 600 Setting Ventilator Tidal Volume 600 Setting Ventilator Respiratory Rate 14 Setting Ventilator Respiratory Rate 14 Setting Ventilator Respiratory Rate 14 Setting Ventilator Respiratory Rate 14 Setting Ventilator Respiratory Rate 14 Setting Ventilator Respiratory Rate 14 Setting Ventilator Respiratory Rate 14 Setting Ventilator Respiratory Rate 14 Setting Actual Respiratory Rate 15 Actual Respiratory Rate 16 Actual Respiratory Rate 15 Actual Respiratory Rate 14 Actual Respiratory Rate 14 Actual Respiratory Rate 14 Actual Respiratory Rate 14 Actual Respiratory Rate 14 Positive End Expiratory 8 Pressure Positive End Expiratory 8 Pressure Positive End Expiratory 8 Pressure Positive End Expiratory 8 Pressure Positive End Expiratory 8 Pressure Positive End Expiratory 8 Pressure Positive End Expiratory 8 Pressure Positive End Expiratory 8 Pressure Peak Inspiratory Airway 28 Pressure Peak Inspiratory Airway 31 Pressure Peak Inspiratory Airway 28 Pressure Peak Inspiratory Airway 27 Pressure Peak Inspiratory Airway 25 Pressure Results - Laboratory Findings CBC and BMP: 06/19/17 12:30 06/20/17 03:35 ABG ABG pH 7.38 pH Units (7.32-7.45) 06/19/17 03:49 ABG pCO2 42 mmHg (35-45) 06/19/17 03:49 ABG pO2 66 mmHg (85-104) L 06/19/17 03:49 ABG O2 Saturation 92 % (95-98) L 06/19/17 03:49 PT/INR, D-dimer PT 16.6 Seconds (9.4-12.1) H 06/18/17 04:30 Abnormal lab findings: Abnormal lab results RBC 3.36 M/mcL (4.19-5.50) L 06/19/17 12:30 Hgb 9.7 g/dL (12.9-16.9) L 06/19/17 12:30 Hct 29.3 % (37.5-50.1) L 06/19/17 12:30 RDW 15.0 % (11.5-14.5) H 06/19/17 12:30 Plt Count 71 K/mcL (140-400) L 06/19/17 12:30 Band Neutrophils % 13.0 % (0-4) H 06/18/17 04:30 Metamyelocytes % 2.0 % (0) H 06/18/17 04:30 Nucleated RBCs/100 WBC 0.2 /100 WBC (0) H 06/19/17 03:20 Platelet Estimate Slight Decrease (Normal) L 06/18/17 04:30 Immature Plt Fraction 7.2 % (1.1-6.1) H 06/19/17 12:30 PT 16.6 Seconds (9.4-12.1) H 06/18/17 04:30 ABG pO2 66 mmHg (85-104) L 06/19/17 03:49 ABG O2 Saturation 92 % (95-98) L 06/19/17 03:49 ABG Hematocrit 37.0 % (37.5-50.1) L 06/17/17 13:30 VBG pH 7.31 pH Units (7.32-7.42) L 06/17/17 09:29 VBG pO2 51 mmHg (25-50) H 06/17/17 09:29 VBG Hematocrit 24.0 % (37.5-50.1) L 06/17/17 09:29 Glucose 192 mg/dL (60-95) H 06/17/17 13:30 Chloride 108 mEq/L (98-107) H 06/20/17 03:35 BUN 55 mg/dL (8-23) H 06/20/17 03:35 Creatinine 2.89 mg/dL (0.70-1.30) H 06/20/17 03:35 Est GFR ( Amer) 26 (> 60) L 06/20/17 03:35 Est GFR (Non-Af Amer) 21 (> 60) L 06/20/17 03:35 Glucose 128 mg/dL (70-105) H 06/20/17 03:35 Whole Bld Glucose 159 mg/dl (65-95) H 06/17/17 09:29 POC Glucose 135 (58-89) H 06/20/17 08:14 Calculated Osmolality 317 (280-300) H 06/20/17 03:35 Calcium 7.4 mg/dL (8.6-10.3) L 06/20/17 03:35 Venous Ioniz Calcium 1.11 mmol/L (1.15-1.35) L 06/17/17 09:29 Albumin 2.5 g/dL (3.5-5.7) L 06/20/17 03:35 Arterial Blood Ionized Calcium 1.85 mmol/L (1.15-1.35) H 06/17/17 13:30 Urine Protein >=300 mg/dL (Neg-Trace) H 06/19/17 14:05 Urine Glucose (UA) 250 mg/dL (Normal) H 06/19/17 14:05 Urine Blood Moderate (Negative) H 06/19/17 14:05 - Clinical Findings Intake & Output: Intake & Output 06/19/17 06/20/17 06/20/17 23:59 07:59 15:59 Intake Total 100 / 100 100 / 100 Output Total 690 / 690 644 / 644 200 / 200 Balance -590 / -590 -544 / -544 -200 / -200 Weight 101.1 kg - Attending Attestation I examined this patient and my medical decision-making was reviewed with the Resident Physician. I agree with the documented findings, disposition and treatment plan as described except to the extent set forth below. Patient seen and examined. Labs, radiology, chart personally reviewed. Agree with resident's history and physical, assessment, plan with following comments: MATTRESS INSPECTOR: Patient follows commands, Pulmonary: Acceptable oxygenation and ventilation. Change vent setting to spontaneous breathing trial with pressure support and extubate patient. Cardiovascular: stable GI: Nutrition per dietary and GI prophylaxis per routine Heme: DVT prophylaxis per routine Renal; urine out put and renal funtion reviewed. Nephrology follow-up Endorcine: blood glucose is monitored Lines: all lines checked and no evidence of infections Skin: skin care to prevent pressure ulcers per nursing routine care
--- NOTE | 2017-06-20 11:40 | Nephrology Progress Note ---
Date of Encounter: 06/20/17 Time of Encounter: 11:24 - Assessment and Plan (1) LATIA (acute kidney injury) Current Visit: No Status: Acute 1. ARF sec to hypotension. Has underlying stage IV CKD, baseline creatinine of 2-2.5 - Cr peaked at 3.3 yesterday, trending down to 2.8 today. Urine output 1.4 L yesterday, 700 last night - Patient appears slightly dehydrated with serum sodium of 145, Start maintenance IV fluids half-normal saline at 50 mL per hour 2. Essential HTN. Start metoprolol, DC IV Nitro Continue supportive care and avoid nephrotoxins - Subjective Principal diagnosis: f/u of chronic kidney disease stage IV Interval history: 77 year old male with CKD 4 baseline creatinine 2.2-2.5. 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 Had oliguria, required IV Lasix Chest x-ray 06/19; near-complete resolution of bilateral pleural effusions and bibasilar opacities, perihilar opacities are improving. BP trended up last night, IV nitroglycerin started. Patient was extubated, chest tubes were removed this morning Denies shortness of breath. taking ice chips Objective - Vital Signs Vital signs: Vital Signs Temp Pulse Resp BP Pulse Ox 06/20/17 10:00 90 14 118/72 91 06/20/17 09:00 98 16 107/58 90 06/20/17 08:15 98.8 F 06/20/17 08:00 91 15 145/74 92 06/20/17 07:00 73 16 155/92 97 06/20/17 06:04 15 171/78 97 06/20/17 06:00 75 14 182/90 99 06/20/17 05:00 75 14 158/70 96 06/20/17 04:18 14 144/64 99 06/20/17 04:00 81 14 157/70 96 06/20/17 03:13 97.6 F 80 15 147/67 98 06/20/17 03:11 81 06/20/17 02:04 174 147/67 97 06/20/17 02:00 76 14 138/64 96 06/20/17 01:00 77 14 140/62 96 06/20/17 00:00 97.9 F 74 14 144/64 98 06/19/17 23:55 15 145/64 97 06/19/17 23:18 76 06/19/17 23:16 75 14 124/55 95 06/19/17 22:37 14 115/52 97 06/19/17 22:00 82 15 166/77 99 06/19/17 21:00 78 14 141/61 98 06/19/17 20:03 14 137/60 95 06/19/17 20:00 74 14 149/66 96 06/19/17 19:40 96.8 F L 06/19/17 19:36 71 06/19/17 19:20 71 14 118/53 96 06/19/17 18:00 68 14 132/61 99 06/19/17 17:00 70 14 139/63 99 06/19/17 16:04 97.0 F L 06/19/17 16:00 68 18 132/62 93 06/19/17 15:57 67 06/19/17 15:36 18 139/63 99 06/19/17 15:00 67 18 160/61 93 06/19/17 14:00 67 18 129/60 93 06/19/17 13:00 66 15 125/59 93 06/19/17 12:34 71 06/19/17 12:00 97.5 F L 74 15 133/62 93 06/19/17 11:48 16 125/59 93 Intake and Output 06/19/17 06/20/17 06/20/17 23:59 07:59 15:59 Intake Total 100 / 100 100 / 100 Output Total 690 / 690 644 / 644 200 / 200 Balance -590 / -590 -544 / -544 -200 / -200 Intake: IV Fluids 100 / 100 100 / 100 FentaNYL (PF) 1,000 MCG In 0.9 100 / 100 100 / 100 % Sodium Chloride 80 ML @ Titrate IVC CONT [facility] Rx#: [id number] Oral 0 / 0 Tube Feeding 0 / 0 Free Water 0 / 0 Output: Catheter 350 / 350 500 / 500 200 / 200 Gastric Drainage 250 / 250 0 / 0 Chest Tube Drainage 90 / 90 144 / 144 Mediastinal #1 10 / 10 50 / 50 Mediastinal #2 40 / 40 50 / 50 Mediastinal #3 0 / 0 24 / 24 Mediastinal #4 40 / 40 Other: # Bowel Movements 0 Weight 101.1 kg Blood Glucose* 99 126 135 Patient Weight 06/20/17 23:59 Weight 101.1 kg - General Appearance Exam: CVS; s1s2 present, regular RESP; good air entry, clear anteriorly ABD; soft, NT, BS present EXT; no edema SPORTS TRAINER; alert. oriented x 3. CN grossly intact - Lab 06/19/17 12:30 06/20/17 03:35 Most recent lab results ABG pH 7.38 pH Units (7.32-7.45) 06/19/17 03:49 ABG pCO2 42 mmHg (35-45) 06/19/17 03:49 ABG pO2 66 mmHg (85-104) L 06/19/17 03:49 ABG HCO3 25 mEq/L (21-27) 06/19/17 03:49 ABG O2 Saturation 92 % (95-98) L 06/19/17 03:49 Calcium 7.4 mg/dL (8.6-10.3) L 06/20/17 03:35 Phosphorus 4.0 mg/dL (2.7-4.5) 06/20/17 03:35 Magnesium 2.2 mg/dL (1.6-2.6) 06/18/17 04:30 - VTE Documentation of Mechanical Device: Graduated compression elastic hosiery Consult Discharge Plan - Plan Referrals: Analilia Montero, SUPERVISOR [employer]ING DEPARTMENT [Primary Care Provider] -
[2017-06-20] MEDS: Metoprolol XL (24 HR) Succ 50 MG TAB.ER.24H PO SCH (13:41)
[2017-06-20] MEDS ORDERED: *HR* Metoprolol 5 MG/5 ML VIAL IVP ONE (17:46)
[2017-06-20] MEDS: *HR* Metoprolol 5 MG/5 ML VIAL IVP PRN ×2 (17:50→17:55)
[2017-06-20] MEDS ORDERED: *HR* Metoprolol 5 MG/5 ML VIAL IVP PRN (18:37)
[2017-06-20] MEDS ORDERED: Potassium Chloride Elixir 20 MEQ/15 ML UDC PO ONE (18:40)
[2017-06-20] MEDS: Vasopressin 40 UNIT in D5% in Water 100 ML IV SCH (19:13)
[2017-06-21] MEDS: *HR* Morphine 2 MG/ML SYRINGE IVP PRN ×7 (01:03→22:10)
[2017-06-21] MEDS: *HR* OxyCODONE/APAP 5/325 TABLET PO PRN ×5 (03:13→20:14)
[2017-06-21] MEDS: Nitroglycerin 25 MG/250 ML INFUS..BTL IVC SCH (03:14)
[2017-06-21 04:22] LABS: Albumin 2.5 g/dL (3.5-5.7); Calcium 7.2 mg/dL (8.6-10.3); Phosphorous 2.4 mg/dL (2.7-4.5); Potassium 3.6 mEq/L (3.5-5.1)
[2017-06-21] MEDS: Insulin LISPRO 300 UNITS/3 ML VIAL SQ SCH ×6 (05:05→23:38)
[2017-06-21] MEDS: Chlorhexidine Rinse 15 ML MOUTHWASH MM SCH ×2 (07:48→20:14)
[2017-06-21] MEDS: Docusate Oral Soln 100 MG/10 ML UDC PO SCH ×2 (07:48→20:14)
[2017-06-21] MEDS: Metoprolol XL (24 HR) Succ 50 MG TAB.ER.24H PO SCH (07:49)
--- NOTE | 2017-06-21 08:46 | Cardiothoracic Progress Note ---
Date of Encounter: 06/21/17 Time of Encounter: 08:43 - Assessment and plan (1) CAD (coronary artery disease) Current Visit: No Status: Chronic We will get the patient up to a chair. We will restart his home medications. Hopefully, he can be transferred to the floor tomorrow. Qualifiers: - Subjective Interval history: The patient complains of nervousness and requests that his anti-anxiety medication be restarted. He also requests that his Neurontin and sleeping pill be restarted. Vital Signs, Last 4 Hours Temp Pulse Resp BP Pulse Ox 06/21/17 08:07 18 88 06/21/17 06:00 96 18 147/86 90 06/21/17 05:00 105 15 134/93 90 06/21/17 04:49 99.1 F Oxgyen Flow Rate Oxygen Flow Rate (LPM) 5 Weight 06/19/17 06/20/17 06/21/17 23:59 23:59 23:59 Weight 106.1 kg 101.1 kg Lungs are clear to percussion and auscultation. Heart is in a sinus rhythm. All incisions are healing well without signs of infection and the sternum is stable. Chest x-ray shows improved pulmonary edema. - Labs 06/19/17 12:30 06/21/17 03:15 Lab Results, Last 24 hours 06/21/17 03:15 Sodium 139 Potassium 3.6 Chloride 108 H Carbon Dioxide 25 BUN 46 H Creatinine 2.43 H Glucose 97 Calcium 7.2 L - VTE Documentation of Mechanical Device: Graduated compression elastic hosiery Consult Discharge Plan - Plan Referrals: Analilia Montero, CHILD [employer] C[facility] C[facility] WORKER [Primary Care Provider] -
[2017-06-21] MEDS ORDERED: Furosemide 40 MG/4 ML VIAL IVP ONE (08:49)
[2017-06-21] MEDS ORDERED: traZODone 50 MG TABLET PO PRN (08:50)
--- NOTE | 2017-06-21 09:00 | Nephrology Progress Note ---
Date of Encounter: 06/21/17 Time of Encounter: 08:40 - Assessment and Plan (1) CKD (chronic kidney disease) stage 4, GFR 15-29 ml/min Current Visit: No Status: Chronic S/P CABG x 3. History CKD 4, baseline creat 2.2-2.5. Renal fct improving, back to baseline, creat 2.43. K+ 3.6. Avoid nephrotoxins. Subjective Principal diagnosis: f/u of chronic kidney disease stage IV Interval history: Extubated.States feeling better and was up in chair yesterday. Documented urine output 1500cc. Objective - Vital Signs Vital signs: Vital Signs Temp Pulse Resp BP Pulse Ox 06/21/17 08:07 18 88 06/21/17 06:00 96 18 147/86 90 06/21/17 05:00 105 15 134/93 90 06/21/17 04:49 99.1 F 06/21/17 04:00 97 15 111/62 91 06/21/17 03:00 105 12 127/83 92 06/21/17 02:00 97 12 137/81 92 06/21/17 00:59 101 12 144/85 93 06/20/17 23:58 100.2 F H 103 12 131/90 93 06/20/17 23:55 13 92 06/20/17 23:00 99 12 132/83 93 06/20/17 22:00 98 18 132/87 93 06/20/17 21:00 106 23 125/85 90 06/20/17 20:00 110 22 116/79 88 06/20/17 19:59 16 115/79 88 06/20/17 19:00 97.4 F L 110 14 131/76 86 06/20/17 18:00 99 14 145/81 90 06/20/17 17:00 105 16 166/90 90 06/20/17 16:11 98.3 F 06/20/17 16:00 96 20 134/77 90 06/20/17 15:49 16 89 06/20/17 15:00 96 20 145/84 93 06/20/17 14:00 99 18 132/92 91 06/20/17 13:00 95 20 115/83 95 06/20/17 12:00 100 14 143/87 94 06/20/17 11:03 16 91 06/20/17 11:00 98.8 F 96 19 152/94 93 06/20/17 10:00 90 14 118/72 91 06/20/17 09:00 98 16 107/58 90 Intake and Output 06/20/17 06/21/17 06/21/17 23:59 07:59 15:59 Intake Total 3 / 3 157 / 157 1000 / 1000 Output Total 700 / 700 350 / 350 Balance -697 / -697 -193 / -193 1000 / 1000 Intake: IV Fluids / 3 157 / 157 1000 / 1000 0.45% Sodium Chloride 1000 Ml 1000 / 1000 1000 Ml 1,000 ML @ 50 mls/hr IVC .Q20H [facility] Rx#:[id number] Nitroglycerin Premix 25 MG/250 3 / 3 157 / 157 ML 25 mg In 250 ml @ 5 MCG/MIN 3 mls/hr IVC .Q24H [facility] Rx#: [id number] Output: Catheter 700 / 700 350 / 350 Other: Blood Glucose* 213 - General Appearance General appearance: Present: well-developed, well-nourished, appears started age EENT: Present: mucous membranes moist Neck: Present: no JVD Respiratory: Present: clear Cardiology: Present: regular rate, regular rhythm Additional Comments: trace edema LE Gastrointestinal: Present: normoactive bowel sounds, no tenderness Integumentary: Present: warm and dry Psychiatric: Present: mood/affect appropriate, cooperative - Lab 06/19/17 12:30 06/21/17 03:15 Most recent lab results ABG pH 7.38 pH Units (7.32-7.45) 06/19/17 03:49 ABG pCO2 42 mmHg (35-45) 06/19/17 03:49 ABG pO2 66 mmHg (85-104) L 06/19/17 03:49 ABG HCO3 25 mEq/L (21-27) 06/19/17 03:49 ABG O2 Saturation 92 % (95-98) L 06/19/17 03:49 Calcium 7.2 mg/dL (8.6-10.3) L 06/21/17 03:15 Phosphorus 2.4 mg/dL (2.7-4.5) L 06/21/17 03:15 Magnesium 2.2 mg/dL (1.6-2.6) 06/18/17 04:30 - VTE Documentation of Mechanical Device: Graduated compression elastic hosiery Consult Discharge Plan - Plan Referrals: Analilia Montero, NÉSTOR [Primary Care Provider] -
[2017-06-21] MEDS: Venlafaxine XR (24 HR) 150 MG CAP.ER.24H PO SCH (09:02)
[2017-06-21] MEDS: Lisinopril 20 MG TABLET PO SCH (09:02)
[2017-06-21] MEDS: niCARdipine 40 MG/200 ML MLS IVC SCH ×4 (11:28→23:25)
[2017-06-21] MEDS: Vasopressin 40 UNIT in D5% in Water 100 ML IV SCH (15:49)
[2017-06-21] MEDS ORDERED: Gabapentin 300 MG CAPSULE PO SCH (21:00)
[2017-06-21] MEDS: EPINEPHrine 1 MG in D5% in Water 250 ML IVC SCH (23:25)
[2017-06-21] MEDS: Norepinephrine 4 MG in D5% in Water 250 ML IVC SCH ×2 (23:25)
[2017-06-22] MEDS: *HR* OxyCODONE/APAP 5/325 TABLET PO PRN ×6 (00:16→21:58)
[2017-06-22] MEDS: Nitroglycerin 25 MG/250 ML INFUS..BTL IVC SCH (04:16)
[2017-06-22 04:23] LABS: Basophils % 0.2 %; Hemoglobin 9.4 g/dL (12.9-16.9)
[2017-06-22 04:25] LABS: Eosinophils # 0.3 K/mcL (0.0-0.6); Eosinophils % 2.6 %; Hematocrit 29.4 % (37.5-50.1); Immature Granulocytes % 0.5 % (0-4); Immature Platelets 5.6 % (1.1-6.1); Lymphocytes % 18.1 %; Mean Corpuscular Hemoglobin 28.7 pg (28.0-33.3); Mean Corpuscular Volume 89.9 fL (83.0-100.0); Mean Platelet Volume 10.9 fL (9.4-12.4); Monocytes # 0.8 K/mcL (0.0-1.3); Monocytes % 7.4 %; Neutrophils # 7.7 K/mcL (1.6-8.9); Red Blood Count 3.27 M/mcL (4.19-5.50); Red Cell Distribution Width 14.9 % (11.5-14.5); Segmented Neutrophils % 71.2 %
[2017-06-22 04:26] LABS: Platelet Count 83 K/mcL (140-400)
[2017-06-22 04:40] LABS: Calcium 7.1 mg/dL (8.6-10.3)
[2017-06-22] MEDS: Insulin LISPRO 300 UNITS/3 ML VIAL SQ SCH ×6 (05:24→23:26)
--- NOTE | 2017-06-22 06:44 | Electrocardiograph Report ---
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
--- NOTE | 2017-06-22 06:46 | Electrocardiograph Report ---
[place] [address] Test Date: 2017-06-18 Pat Name: Ike Esquivel Department: 109 Room: [facility] Gender: M Rn Ortho: [id number] : 1940 Requested By: David Irvin Order Number: [id number] Reading MD: Carl Rosas MD Measurements Intervals [place] Rate: 72 P: IN: 0 QRS: 34 QRSD: 111 T: 57 QT: 451 QTc: 475 Interpretive Statements SINUS RHYTHM INFERIOR MO, AGE UNDETERMINED BASELINE ARTIFACT Electronically Signed On 06-22-2017 6:44:25 EST by Carl Rosas MD
--- NOTE | 2017-06-22 07:46 | Nephrology Progress Note ---
Date of Encounter: 06/22/17 Time of Encounter: 07:44 - Assessment and Plan (1) CKD (chronic kidney disease) stage 4, GFR 15-29 ml/min Current Visit: No Status: Chronic Patient has stage IV chronic kidney disease in the setting of diabetes and hypertension. His renal function is currently at baseline. Urine output is adequate. Vital signs are stable. We will continue to monitor the patient during his hospital course. (2) CAD (coronary artery disease) Current Visit: No Status: Chronic Qualifiers: Coronary Disease-Associated Artery/Lesion type: [place] artery [place] vs. transplanted heart: [place] heart Associated angina: with unstable angina Qualified Code(s): I25.110 - Atherosclerotic heart disease of [place] coronary artery with unstable angina pectoris (3) LATIA (acute kidney injury) Current Visit: No Status: Acute (4) S/P CABG x 3 Current Visit: Yes Status: Acute Subjective Principal diagnosis: f/u of chronic kidney disease stage IV Interval history: Patient reports she is feeling well. He denies any complaints. He denies any shortness of breath. He says his pain overall is improving. Renal function is stable. Creatinine is at his previous baseline. Objective - Vital Signs Vital signs: Vital Signs Temp Pulse Resp BP Pulse Ox 06/22/17 07:00 104 14 111/71 99 06/22/17 06:00 100 16 112/64 99 06/22/17 05:00 99 16 98/61 100 06/22/17 04:00 98.5 F 100 14 133/73 99 06/22/17 03:00 93 16 99/58 100 06/22/17 02:00 96 17 99/57 100 06/22/17 01:00 96 16 104/59 100 06/22/17 00:10 17 100 06/22/17 00:00 96 16 115/76 100 06/21/17 23:55 98.4 F 06/21/17 23:00 92 14 101/59 100 06/21/17 22:00 96 14 103/66 100 06/21/17 21:00 95 16 135/76 100 06/21/17 20:49 99.5 F 06/21/17 20:00 94 26 131/81 100 06/21/17 19:58 20 100 06/21/17 19:00 93 20 128/79 100 06/21/17 18:00 97 20 136/77 100 06/21/17 17:00 92 20 117/73 100 06/21/17 16:42 20 100 06/21/17 16:00 98.6 F 93 20 125/74 100 06/21/17 15:00 93 20 147/82 100 06/21/17 14:00 91 20 124/71 100 06/21/17 13:00 98 20 113/74 100 06/21/17 12:00 98.4 F 96 20 138/79 100 06/21/17 11:59 20 100 06/21/17 11:00 96 20 123/75 100 06/21/17 10:00 100 20 122/67 100 06/21/17 09:00 105 20 129/91 100 06/21/17 08:07 18 88 06/21/17 08:00 108 18 145/91 91 Intake and Output 06/21/17 06/21/17 06/22/17 15:59 23:59 07:59 Intake Total 1120 / 1120 400 / 400 200 / 200 Output Total 775 / 775 150 / 150 Balance 1120 / 1120 -375 / -375 50 / 50 Intake: IV Fluids 1000 / 1000 0.45% Sodium Chloride 1000 Ml 1000 / 1000 1000 Ml 1,000 ML @ 50 mls/hr IVC .Q20H [facility] Rx#:[id number] Oral 120 / 120 400 / 400 200 / 200 Output: Catheter 775 / 775 150 / 150 Other: Meal Lunch Percent of Meal Consumed 40% Weight 102.6 kg Blood Glucose* 159 92 - General Appearance Exam: Patient is alert and oriented. He is in no acute distress. Lungs essentially clear to auscultation with some diminished breath sounds. Heart regular rate and rhythm. Abdomen is benign. There is no peripheral edema. A Mosqueda catheter is in place. - Lab 06/22/17 04:10 06/22/17 04:10 Most recent lab results ABG pH 7.38 pH Units (7.32-7.45) 06/19/17 03:49 ABG pCO2 42 mmHg (35-45) 06/19/17 03:49 ABG pO2 66 mmHg (85-104) L 06/19/17 03:49 ABG HCO3 25 mEq/L (21-27) 06/19/17 03:49 ABG O2 Saturation 92 % (95-98) L 06/19/17 03:49 Calcium 7.1 mg/dL (8.6-10.3) L 06/22/17 04:10 Phosphorus 2.4 mg/dL (2.7-4.5) L 06/21/17 03:15 Magnesium 2.2 mg/dL (1.6-2.6) 06/18/17 04:30 - VTE Documentation of Mechanical Device: Graduated compression elastic hosiery Consult Discharge Plan - Plan Referrals: Analilia Montero, DIRECTOR WEIGHTS AND MEASURES [Primary Care Provider] -
--- NOTE | 2017-06-22 08:47 | Cardiothoracic Progress Note ---
Date of Encounter: 06/22/17 Time of Encounter: 08:45 - Assessment and plan (1) CAD (coronary artery disease) Current Visit: No Status: Chronic I will increase the patient's Toprol-XL to 200 mg by mouth a day. We will remove his Mosqueda. We will transfer him to the floor. Renal function is stable. Qualifiers: Coronary Disease-Associated Artery/Lesion type: [place] artery [place] vs. transplanted heart: [place] heart Associated angina: with unstable angina Qualified Code(s): I25.110 - Atherosclerotic heart disease of [place] coronary artery with unstable angina pectoris - Subjective Interval history: The patient feels better and is anxious to go home. Vital Signs, Last 4 Hours Temp Pulse Resp BP Pulse Ox 06/22/17 08:19 98.8 F 06/22/17 08:07 14 99 06/22/17 07:45 104 06/22/17 07:00 104 14 111/71 99 06/22/17 06:00 100 16 112/64 99 06/22/17 05:00 99 16 98/61 100 Oxgyen Flow Rate Oxygen Flow Rate (LPM) 2 Weight 06/20/17 06/21/17 06/22/17 23:59 23:59 23:59 Weight 101.1 kg 102.6 kg Lungs are clear to percussion and auscultation. Heart is in a regular rate and rhythm. All incisions are healing well without signs of infection and the sternum is stable. Chest x-ray shows improved pulmonary edema. - Labs 06/22/17 04:10 06/22/17 04:10 Lab Results, Last 24 hours 06/22/17 06/22/17 04:10 04:10 WBC 10.8 Hgb 9.4 L Hct 29.4 L Plt Count 83 L Sodium 137 Potassium 4.0 Chloride 106 Carbon Dioxide 25 BUN 46 H Creatinine 2.43 H Glucose 118 H Calcium 7.1 L - VTE Documentation of Mechanical Device: Graduated compression elastic hosiery Consult Discharge Plan - Plan Referrals: Analilia Montero, [employer] [Primary Care Provider] -
[2017-06-22] MEDS ORDERED: Metoprolol XL (24 HR) Succ 50 MG TAB.ER.24H PO SCH (09:00)
[2017-06-22] MEDS: Venlafaxine XR (24 HR) 150 MG CAP.ER.24H PO SCH (09:02)
[2017-06-22] MEDS: Chlorhexidine Rinse 15 ML MOUTHWASH MM SCH ×2 (09:02→20:07)
[2017-06-22] MEDS: Docusate Oral Soln 100 MG/10 ML UDC PO SCH ×2 (09:02→20:08)
[2017-06-22] MEDS ORDERED: Insulin LISPRO 300 UNITS/3 ML VIAL SQ PRN (09:03)
[2017-06-22] MEDS: Lisinopril 20 MG TABLET PO SCH (09:03)
[2017-06-22] MEDS ORDERED: D5% in Water 1,000 ML IVC PRN (09:03)
[2017-06-22] MEDS ORDERED: Dextrose Gel 15 GM/37.5 ML TUBE PO PRN ×2 (09:03)
[2017-06-22] MEDS ORDERED: Ondansetron 4 MG/2 ML VIAL IVP PRN (09:03)
[2017-06-22] MEDS ORDERED: *HR* Dextrose 50 % in Water (Syg) 50 ML SYRINGE IVP PRN (09:03)
[2017-06-22] MEDS ORDERED: Naloxone 0.4 MG/ML INJ IVP PRN (09:03)
[2017-06-22] MEDS ORDERED: *HR* Promethazine 25 MG/ML VIAL IVP PRN (09:03)
[2017-06-22] MEDS ORDERED: Amiodarone Premix 150 MG/100 ML BAG IVPB ONE (09:28)
[2017-06-22] MEDS ORDERED: Amiodarone Premix 360 MG/200 ML BAG IVC ONE (09:29)
[2017-06-22] MEDS: *HR* Morphine 2 MG/ML SYRINGE IVP PRN ×3 (14:11→23:29)
[2017-06-22] MEDS: Amiodarone Premix 360 MG/200 ML BAG IVC SCH (15:48)
[2017-06-22] MEDS: *HR* Heparin 5,000 UNIT/ML VIAL SQ SCH (17:46)
[2017-06-22] MEDS: Gabapentin 300 MG CAPSULE PO SCH (20:07)
[2017-06-22] MEDS: traZODone 50 MG TABLET PO PRN (20:07)
[2017-06-23] MEDS: *HR* OxyCODONE/APAP 5/325 TABLET PO PRN ×5 (02:00→20:30)
[2017-06-23] MEDS: Amiodarone Premix 360 MG/200 ML BAG IVC SCH (03:10)
[2017-06-23] MEDS: Insulin LISPRO 300 UNITS/3 ML VIAL SQ SCH ×6 (03:14→23:20)
[2017-06-23] MEDS: *HR* Heparin 5,000 UNIT/ML VIAL SQ SCH ×2 (05:52→18:01)
[2017-06-23 07:11] LABS: Eosinophils % 5.3 %; Lymphocytes % 21.9 %; Nucleated Red Blood Cells 0.2 /100 WBC (0)
[2017-06-23 07:13] LABS: Basophils % 0.1 %; Eosinophils # 0.5 K/mcL (0.0-0.6); Hemoglobin 8.9 g/dL (12.9-16.9); Immature Granulocytes % 0.9 % (0-4); Lymphocytes # 1.9 K/mcL (0.6-4.6); Mean Corpuscular HGB Conc 31.8 g/dL (31.6-35.5); Mean Corpuscular Hemoglobin 28.7 pg (28.0-33.3); Mean Corpuscular Volume 90.3 fL (83.0-100.0); Mean Platelet Volume 10.8 fL (9.4-12.4); Monocytes # 0.7 K/mcL (0.0-1.3); Monocytes % 8.4 %; Red Cell Distribution Width 15.1 % (11.5-14.5); Segmented Neutrophils % 63.4 %
[2017-06-23 07:25] LABS: Neutrophils # 5.5 K/mcL (1.6-8.9); Platelet Count 83 K/mcL (140-400)
[2017-06-23 07:28] LABS: Potassium 3.8 mEq/L (3.5-5.1)
--- NOTE | 2017-06-23 08:42 | Nephrology Progress Note ---
Date of Encounter: 06/23/17 Time of Encounter: 08:40 - Assessment and Plan (1) CKD (chronic kidney disease) stage 4, GFR 15-29 ml/min Current Visit: No Status: Chronic Patient has stage IV chronic kidney disease in the setting of diabetes and hypertension. The serum creatinine is increased from yesterday. Blood pressures on the low side. Can discontinue the lisinopril. (2) CAD (coronary artery disease) Current Visit: No Status: Chronic Qualifiers: Coronary Disease-Associated Artery/Lesion type: [place] artery [place] vs. transplanted heart: [place] heart Associated angina: with unstable angina Qualified Code(s): I25.110 - Atherosclerotic heart disease of [place] coronary artery with unstable angina pectoris (3) LATIA (acute kidney injury) Current Visit: No Status: Acute (4) S/P CABG x 3 Current Visit: Yes Status: Acute Subjective Principal diagnosis: f/u of chronic kidney disease stage IV Interval history: The patient is sitting up in a chair eating breakfast. He denies any complaints. He does not have any shortness of breath. He does have some occasional postoperative pain. His creatinine is increased from yesterday. Blood pressures on the low side. I am going to discontinue his lisinopril. Objective - Vital Signs Vital signs: Vital Signs Temp Pulse Resp BP Pulse Ox 06/23/17 07:51 16 100 06/23/17 07:44 96.8 F L 81 06/23/17 07:00 81 22 98/62 100 06/23/17 06:00 80 20 115/67 100 06/23/17 04:13 81 06/23/17 04:00 81 18 105/68 100 06/23/17 03:59 16 100 06/23/17 03:15 98.1 F 06/23/17 02:00 81 20 99/61 100 06/23/17 00:17 96.9 F L 06/23/17 00:00 77 14 85/54 100 06/22/17 23:19 14 100 06/22/17 22:00 77 14 88/71 100 06/22/17 20:50 97.6 F 06/22/17 20:00 79 16 105/62 100 06/22/17 19:51 16 100 06/22/17 17:00 78 16 108/69 100 06/22/17 15:52 76 06/22/17 15:40 12 100 06/22/17 15:00 98.1 F 78 14 101/62 100 06/22/17 13:00 89 12 130/82 100 06/22/17 11:26 92 06/22/17 11:21 12 99 06/22/17 11:00 92 18 98/56 99 06/22/17 09:00 105 12 129/72 99 Intake and Output 06/22/17 06/23/17 06/23/17 23:59 07:59 15:59 Intake Total 440 / 440 Output Total 100 / 100 0 / 0 Balance -100 / -100 440 / 440 Intake: IV Fluids 200 / 200 Amiodarone Drip Premix 360mg/ 200 / 200 200mL 360 mg In 200 ml @ 0.5 MG /MIN 16.667 mls/hr IVC [facility] Rx#:[id number] Oral 240 / 240 Output: Urine 100 / 100 0 / 0 Other: Weight 103.2 kg Blood Glucose* 81 Patient Weight 06/23/17 23:59 Weight 103.2 kg - General Appearance Exam: Patient is alert and oriented. In no acute distress. Lungs symmetric breath sounds. Heart regular rate and rhythm. Abdomen is benign. There is minimal lower extremity swelling. - Lab 06/23/17 06:51 06/23/17 06:51 Most recent lab results ABG pH 7.38 pH Units (7.32-7.45) 06/19/17 03:49 ABG pCO2 42 mmHg (35-45) 06/19/17 03:49 ABG pO2 66 mmHg (85-104) L 06/19/17 03:49 ABG HCO3 25 mEq/L (21-27) 06/19/17 03:49 ABG O2 Saturation 92 % (95-98) L 06/19/17 03:49 Calcium 7.0 mg/dL (8.6-10.3) L 06/23/17 06:51 Phosphorus 2.4 mg/dL (2.7-4.5) L 06/21/17 03:15 Magnesium 2.2 mg/dL (1.6-2.6) 06/18/17 04:30 - VTE Documentation of Mechanical Device: Graduated compression elastic hosiery Consult Discharge Plan - Plan Referrals: Analilia Montero, GRADALL OPERATOR [Primary Care Provider] -
--- NOTE | 2017-06-23 08:45 | Cardiothoracic Progress Note ---
Date of Encounter: 06/23/17 Time of Encounter: 08:43 - Assessment and plan (1) CAD (coronary artery disease) Current Visit: No Status: Chronic We will discontinue the amiodarone drip and switched the patient to by mouth amiodarone. I will stop his Zestril as his blood pressure is borderline. Hopefully, the patient can be transferred to a room today. Qualifiers: Coronary Disease-Associated Artery/Lesion type: [place] artery [place] vs. transplanted heart: [place] heart Associated angina: with unstable angina Qualified Code(s): I25.110 - Atherosclerotic heart disease of [place] coronary artery with unstable angina pectoris - Subjective Interval history: The patient is anxious to be discharged. He has no complaints. Vital Signs, Last 4 Hours Temp Pulse Resp BP Pulse Ox 06/23/17 07:51 16 100 06/23/17 07:44 96.8 F L 81 06/23/17 07:00 81 22 98/62 100 06/23/17 06:00 80 20 115/67 100 Oxgyen Flow Rate Oxygen Flow Rate (LPM) 2 Clinical Data, last 8 Hours Output, Urine Amount 0 Weight 06/21/17 06/22/17 06/23/17 23:59 23:59 23:59 Weight 102.6 kg 103.2 kg Lungs are clear to percussion and auscultation. Heart is in a normal sinus rhythm. All incisions are healing well without signs of infection and the sternum is stable. - Labs 06/23/17 06:51 06/23/17 06:51 Lab Results, Last 24 hours 06/23/17 06/23/17 06:51 06:51 WBC 8.7 Hgb 8.9 L Hct 28.0 L Plt Count 83 L Sodium 135 L Potassium 3.8 Chloride 103 Carbon Dioxide 25 BUN 53 H Creatinine 3.25 H Glucose 93 Calcium 7.0 L - VTE Documentation of Mechanical Device: Graduated compression elastic hosiery Consult Discharge Plan - Plan Referrals: Analilia Montero, PIPELINE ENGINEER [Primary Care Provider] -
[2017-06-23] MEDS ORDERED: Lisinopril 20 MG TABLET PO SCH (09:00)
[2017-06-23] MEDS: Chlorhexidine Rinse 15 ML MOUTHWASH MM SCH ×2 (09:07→20:35)
[2017-06-23] MEDS: Docusate Oral Soln 100 MG/10 ML UDC PO SCH ×2 (09:07→20:30)
[2017-06-23] MEDS: Venlafaxine XR (24 HR) 150 MG CAP.ER.24H PO SCH (09:20)
[2017-06-23] MEDS: *HR* Amiodarone 200 MG TABLET PO SCH ×2 (09:20→20:30)
[2017-06-23] MEDS: Metoprolol XL (24 HR) Succ 50 MG TAB.ER.24H PO SCH (11:06)
[2017-06-23] MEDS: traZODone 50 MG TABLET PO PRN (20:30)
[2017-06-23] MEDS: Gabapentin 300 MG CAPSULE PO SCH (20:30)
[2017-06-23] MEDS: *HR* Morphine 2 MG/ML SYRINGE IVP PRN (23:20)
[2017-06-24] MEDS: *HR* OxyCODONE/APAP 5/325 TABLET PO PRN ×4 (03:16→20:03)
[2017-06-24] MEDS: Insulin LISPRO 300 UNITS/3 ML VIAL SQ SCH ×6 (04:44→23:08)
[2017-06-24] MEDS: *HR* Heparin 5,000 UNIT/ML VIAL SQ SCH ×2 (05:16→16:17)
[2017-06-24 05:39] LABS: Immature Granulocytes % 0.7 % (0-4); Mean Platelet Volume 10.9 fL (9.4-12.4)
[2017-06-24 05:41] LABS: Basophils % 0.1 %; Eosinophils # 0.5 K/mcL (0.0-0.6); Eosinophils % 7.3 %; Hematocrit 26.5 % (37.5-50.1); Hemoglobin 8.5 g/dL (12.9-16.9); Immature Platelets 5.2 % (1.1-6.1); Lymphocytes # 1.5 K/mcL (0.6-4.6); Lymphocytes % 20.5 %; Mean Corpuscular HGB Conc 32.1 g/dL (31.6-35.5); Mean Corpuscular Hemoglobin 28.4 pg (28.0-33.3); Mean Corpuscular Volume 88.6 fL (83.0-100.0); Monocytes # 0.7 K/mcL (0.0-1.3); Monocytes % 9.8 %; Platelet Count 102 K/mcL (140-400); Red Blood Count 2.99 M/mcL (4.19-5.50); Segmented Neutrophils % 61.6 %
[2017-06-24 05:53] LABS: Neutrophils # 4.6 K/mcL (1.6-8.9)
[2017-06-24 06:05] LABS: Calcium 7.1 mg/dL (8.6-10.3); Potassium 3.7 mEq/L (3.5-5.1)
--- NOTE | 2017-06-24 07:31 | Cardiothoracic Progress Note ---
Date of Encounter: 06/24/17 Time of Encounter: 07:28 - Assessment and plan (1) CAD (coronary artery disease) Current Visit: No Status: Chronic The patient's creatinine is improved. If he is unable to urinate in the next hour or two, he will require an indwelling Mosqueda catheter. Qualifiers: Coronary Disease-Associated Artery/Lesion type: [place] artery [place] vs. transplanted heart: [place] heart Associated angina: with unstable angina Qualified Code(s): I25.110 - Atherosclerotic heart disease of [place] coronary artery with unstable angina pectoris - Subjective Interval history: The patient has no complaints. He was unable to urinate yesterday and was catheterized with 700 mL of urine out. This was an in and out catheter. Vital Signs, Last 4 Hours Temp Pulse Resp BP Pulse Ox 06/24/17 06:00 80 12 89/73 97 06/24/17 05:02 98.3 F 06/24/17 04:00 82 14 96/60 95 06/24/17 03:46 18 95 06/24/17 03:30 82 Oxgyen Flow Rate Oxygen Flow Rate (LPM) 2 Clinical Data, last 8 Hours Output, Urine Amount 0 Weight 06/22/17 06/23/17 06/24/17 23:59 23:59 23:59 Weight 103.2 kg 103.5 kg Lungs are clear to percussion and auscultation. Heart is in a normal sinus rhythm. All incisions are healing well without signs of infection and the sternum is stable. - Labs 06/24/17 05:16 06/24/17 05:16 Lab Results, Last 24 hours 06/23/17 06/24/17 06/24/17 06:51 05:16 05:16 WBC 7.4 Hgb 8.5 L Hct 26.5 L Plt Count 102 L Sodium 135 L 135 L Potassium 3.8 3.7 Chloride 103 103 Carbon Dioxide 25 24 BUN 53 H 54 H Creatinine 3.25 H 3.07 H Glucose 93 76 Calcium 7.0 L 7.1 L - VTE Documentation of Mechanical Device: Graduated compression elastic hosiery Consult Discharge Plan - Plan Referrals: Analilia Montero, ANTIQUE REFINISHER [Primary Care Provider] -
[2017-06-24] MEDS: Metoprolol XL (24 HR) Succ 50 MG TAB.ER.24H PO SCH (08:18)
[2017-06-24] MEDS: Venlafaxine XR (24 HR) 150 MG CAP.ER.24H PO SCH (08:23)
[2017-06-24] MEDS: *HR* Amiodarone 200 MG TABLET PO SCH ×2 (08:24→20:03)
[2017-06-24] MEDS: Docusate Oral Soln 100 MG/10 ML UDC PO SCH ×2 (08:24→20:04)
[2017-06-24] MEDS: Chlorhexidine Rinse 15 ML MOUTHWASH MM SCH ×2 (08:24→20:04)
--- NOTE | 2017-06-24 08:51 | Nephrology Progress Note ---
Date of Encounter: 06/24/17 Time of Encounter: 08:35 - Assessment and Plan (1) CKD (chronic kidney disease) stage 4, GFR 15-29 ml/min Current Visit: No Status: Chronic S/P CABG x 3. History CKD 4, baseline creat 2.2-2.5. Hypotensive. Lisinopril stopped yesterday. Consider decreasing BB for increased renal perfusion. Creat3.07 from 3.25 yesterday. K+ 3.7. Avoid nephrotoxins. Subjective Principal diagnosis: f/u of chronic kidney disease stage IV Interval history: States doing good, feels good. Documented urine output 725cc. SBP 89-96. Objective - Vital Signs Vital signs: Vital Signs Temp Pulse Resp BP Pulse Ox 06/24/17 08:34 98.1 F 06/24/17 08:06 18 98 06/24/17 06:00 80 12 89/73 97 06/24/17 05:02 98.3 F 06/24/17 04:00 82 14 96/60 95 06/24/17 03:46 18 95 06/24/17 03:30 82 06/24/17 02:00 82 16 110/65 98 06/24/17 00:38 16 100 06/24/17 00:36 98.6 F 06/24/17 00:00 80 14 105/60 100 06/23/17 23:14 82 06/23/17 22:00 82 16 127/78 100 06/23/17 20:54 98.3 F 06/23/17 20:00 85 17 103/74 100 06/23/17 19:42 18 124/70 99 06/23/17 19:26 84 06/23/17 18:00 77 16 124/70 98 06/23/17 16:07 16 99 06/23/17 15:12 98.0 F 79 20 128/70 99 06/23/17 15:01 79 06/23/17 12:19 98.5 F 06/23/17 11:26 16 100 06/23/17 11:10 87 06/23/17 11:00 98.5 F 87 16 120/75 100 Intake and Output 06/23/17 06/24/17 06/24/17 23:59 07:59 15:59 Intake Total 220 / 220 100 / 100 Output Total 0 / 0 0 / 0 Balance 220 / 220 100 / 100 Intake: Oral 220 / 220 100 / 100 Output: Urine 0 / 0 0 / 0 Other: Weight 103.5 kg Blood Glucose* 213 113 101 Patient Weight 06/24/17 23:59 Weight 103.5 kg - General Appearance General appearance: Present: well-developed, well-nourished, appears started age EENT: Present: mucous membranes moist Neck: Present: no JVD Respiratory: Present: clear Cardiology: Present: no edema, regular rate, regular rhythm Gastrointestinal: Present: normoactive bowel sounds, no tenderness Integumentary: Present: warm and dry Psychiatric: Present: mood/affect appropriate, cooperative - Lab 06/24/17 05:16 06/24/17 05:16 Most recent lab results ABG pH 7.38 pH Units (7.32-7.45) 06/19/17 03:49 ABG pCO2 42 mmHg (35-45) 06/19/17 03:49 ABG pO2 66 mmHg (85-104) L 06/19/17 03:49 ABG HCO3 25 mEq/L (21-27) 06/19/17 03:49 ABG O2 Saturation 92 % (95-98) L 06/19/17 03:49 Calcium 7.1 mg/dL (8.6-10.3) L 06/24/17 05:16 Phosphorus 2.4 mg/dL (2.7-4.5) L 06/21/17 03:15 Magnesium 2.2 mg/dL (1.6-2.6) 06/18/17 04:30 - VTE Documentation of Mechanical Device: Graduated compression elastic hosiery Consult Discharge Plan - Plan Referrals: Analilia Montero, UTILITY OPERATOR [Primary Care Provider] -
--- NOTE | 2017-06-24 18:23 | Urology - Consult Note ---
Date of Encounter: 06/24/17 Time of Encounter: 18:20 - Assessment and Plan (1) Urinary retention Current Visit: Yes Status: Acute Assessment and plan: 77-year-old man with a history of urinary retention. I recommend continuing the catheter during this hospital stay. He can follow up with Dr. Bravo 1 week after discharge for a voiding trial. Thank you very much for allowing me to participate in Mr. Esquivel's care. Please call with any questions. Urology CN:HPI Consult date: 06/24/17 Reason for consult Urology: Other (Urinary retention) Requesting physician: David Irvin History of present illness: 77-year-old man recently underwent a coronary artery bypass. He has a history of BPH. He had a TURP done by Dr. Bravo in October 2016. Since surgery he has been having difficulty emptying his bladder. A catheter was replaced. He says that this happens with some frequency to him. He denies any pain with urination. His urine has been clear. He is comfortable with the catheter. Past Med Surg Social Fam HX - Past Medical History Medical history: aortic aneurysm, arthritis, coronary artery disease, diabetes, hyperlipidemia, hypertension, renal disease, TIA, other Psychiatric history: anxiety, depression - Past Surgical History Surgical History: angioplasty/stent, orthopedic, other, other - Social History Smoking Status: Former smoker Smokeless Tobacco Status: No Alcohol use: occasionally Drug use: none - Family History Father Family Member Ethnicity: Non- Living Status: Hx Family Cardiac Disorders: Yes (DC, CAD, HTN) Mother Family Member Ethnicity: Non- Living Status: Hx Family Cancer: Yes (Breast) Brother Family Member Ethnicity: Non- Living Status: Still Living Sister Family Member Ethnicity: Non- Living Status: Still Living Hx Family Endocrine Disorder: Yes (DM) Medications and Allergies Amlodipine Besylate 10 mg PO DAILY 04/02/16 [History] Atorvastatin Calcium [Lipitor] 20 mg PO HS 04/02/16 [History] Isosorbide MONOnitrate (24 HR) [Imdur] 30 mg PO DAILY 04/02/16 [History] Metoprolol Succinate 400 mg PO DAILY 04/02/16 [History] Buspirone HCl [Buspar] 7.5 mg PO BID 11/12/16 [History] Clopidogrel [Plavix] 75 mg PO DAILY 11/12/16 [History] Gabapentin [Neurontin] 300 mg PO HS 11/12/16 [History] Tramadol HCl [Ultram] 50 - 100 mg PO BID PRN 11/12/16 [History] Venlafaxine XR (24 HR) [Effexor Xr] 150 mg PO DAILY 11/12/16 [History] Ferrous Sulfate [Iron] 325 mg PO DAILY 02/13/17 [History] Cyanocobalamin (Vitamin B-12) [Vitamin B-12] 1,000 mcg SL DAILY 02/14/17 [ History] Trazodone HCl 100 mg PO HS 02/14/17 [History] Glimepiride [Amaryl] 2 mg PO DAILY 06/10/17 [History] Lisinopril [Zestril] 20 mg PO DAILY 06/10/17 [History] Nitroglycerin [Nitrostat] 0.4 mg SL Q5-6MIN PRN 06/10/17 [History] 3 Allergy/AdvReac Type Severity Reaction Status Date / Time No Known Allergies Allergy Verified 02/14/17 13:39 Review of Systems - Constitutional no chills, no fever(s) - EENT Nose, mouth and throat: no dizziness - Cardiovascular no chest pain - Respiratory no dyspnea - Gastrointestinal no nausea, no vomiting - Genitourinary no flank pain, no hematuria - Musculoskeletal no back pain - Integumentary no erythema, no rash - Neurological no weakness - Psychiatric no suicidal ideation - Hematologic/Lymphatic no easy bleeding - Allergic/Immunologic no wheezing Exam Initial Vital Signs Temp Pulse Resp BP Pulse Ox 98.2 F 67 18 148/84 93 06/17/17 06:50 06/17/17 06:50 06/17/17 06:50 06/17/17 06:50 06/17/17 06:50 - General physical appearance Present: well developed, well nourished, no distress - Eyes Absent: icteric - ENT Present: normal nares - Neck Present: trachea midline - Respiratory Present: normal respiratory effort - Cardiovascular Cardiovascular exam IM: RRR - Abdomen Abdomen: Present: soft - Genitourinary other (Catheter in place with clear urine) Urology Results - Labs 06/24/17 05:16 06/24/17 05:16 Abnormal lab results RBC 2.99 M/mcL (4.19-5.50) L 06/24/17 05:16 Hgb 8.5 g/dL (12.9-16.9) L 06/24/17 05:16 Hct 26.5 % (37.5-50.1) L 06/24/17 05:16 RDW 15.0 % (11.5-14.5) H 06/24/17 05:16 Plt Count 102 K/mcL (140-400) L 06/24/17 05:16 Band Neutrophils % 13.0 % (0-4) H 06/18/17 04:30 Metamyelocytes % 2.0 % (0) H 06/18/17 04:30 Nucleated RBCs/100 WBC 0.2 /100 WBC (0) H 06/23/17 06:51 Platelet Estimate Slight Decrease (Normal) L 06/18/17 04:30 PT 16.6 Seconds (9.4-12.1) H 06/18/17 04:30 ABG pO2 66 mmHg (85-104) L 06/19/17 03:49 ABG O2 Saturation 92 % (95-98) L 06/19/17 03:49 ABG Hematocrit 37.0 % (37.5-50.1) L 06/17/17 13:30 VBG pH 7.31 pH Units (7.32-7.42) L 06/17/17 09:29 VBG pO2 51 mmHg (25-50) H 06/17/17 09:29 VBG Hematocrit 24.0 % (37.5-50.1) L 06/17/17 09:29 Glucose 192 mg/dL (60-95) H 06/17/17 13:30 Sodium 135 mEq/L (136-145) L 06/24/17 05:16 BUN 54 mg/dL (8-23) H 06/24/17 05:16 Creatinine 3.07 mg/dL (0.70-1.30) H 06/24/17 05:16 Est GFR ( Amer) 24 (> 60) L 06/24/17 05:16 Est GFR (Non-Af Amer) 20 (> 60) L 06/24/17 05:16 Whole Bld Glucose 159 mg/dl (65-95) H 06/17/17 09:29 POC Glucose 219 (58-89) H 06/24/17 15:57 Calcium 7.1 mg/dL (8.6-10.3) L 06/24/17 05:16 Venous Ioniz Calcium 1.11 mmol/L (1.15-1.35) L 06/17/17 09:29 Phosphorus 2.4 mg/dL (2.7-4.5) L 06/21/17 03:15 Albumin 2.5 g/dL (3.5-5.7) L 06/21/17 03:15 Arterial Blood Ionized Calcium 1.85 mmol/L (1.15-1.35) H 06/17/17 13:30 Urine Protein >=300 mg/dL (Neg-Trace) H 06/19/17 14:05 Urine Glucose (UA) 250 mg/dL (Normal) H 06/19/17 14:05 Urine Blood Moderate (Negative) H 06/19/17 14:05 Diabetes panel 06/24/17 Range/Units 05:16 Sodium 135 L (136-145) mEq/L Potassium 3.7 (3.5-5.1) mEq/L Chloride 103 (98-107) mEq/L Carbon Dioxide 24 (23-29) mEq/L BUN 54 H (8-23) mg/dL Creatinine 3.07 H (0.70-1.30) mg/dL Glucose 76 (70-105) mg/dL Calcium 7.1 L (8.6-10.3) mg/dL Calcium panel 06/24/17 Range/Units 05:16 Calcium 7.1 L (8.6-10.3) mg/dL Pituitary panel 06/24/17 Range/Units 05:16 Sodium 135 L (136-145) mEq/L Potassium 3.7 (3.5-5.1) mEq/L Chloride 103 (98-107) mEq/L Carbon Dioxide 24 (23-29) mEq/L BUN 54 H (8-23) mg/dL Creatinine 3.07 H (0.70-1.30) mg/dL Glucose 76 (70-105) mg/dL Calcium 7.1 L (8.6-10.3) mg/dL Adrenal panel 06/24/17 Range/Units 05:16 Sodium 135 L (136-145) mEq/L Potassium 3.7 (3.5-5.1) mEq/L Chloride 103 (98-107) mEq/L Carbon Dioxide 24 (23-29) mEq/L BUN 54 H (8-23) mg/dL Creatinine 3.07 H (0.70-1.30) mg/dL Glucose 76 (70-105) mg/dL Calcium 7.1 L (8.6-10.3) mg/dL All other labs normal. Consult Discharge Plan - Plan Referrals: Analilia Montero, NÉSTOR [Primary Care Provider] -
[2017-06-24] MEDS: Gabapentin 300 MG CAPSULE PO SCH (20:03)
[2017-06-24] MEDS: traZODone 50 MG TABLET PO PRN (20:03)
[2017-06-25] MEDS: *HR* OxyCODONE/APAP 5/325 TABLET PO PRN ×5 (00:07→20:40)
[2017-06-25] MEDS: *HR* Heparin 5,000 UNIT/ML VIAL SQ SCH ×2 (04:31→18:28)
[2017-06-25] MEDS: Insulin LISPRO 300 UNITS/3 ML VIAL SQ SCH ×4 (04:36→16:08)
[2017-06-25 04:44] LABS: Basophils % 0.2 %; Eosinophils # 0.5 K/mcL (0.0-0.6); Eosinophils % 9.5 %; Hemoglobin 8.5 g/dL (12.9-16.9); Immature Granulocytes % 0.4 % (0-4); Lymphocytes # 1.1 K/mcL (0.6-4.6); Lymphocytes % 22.5 %; Mean Corpuscular HGB Conc 32.7 g/dL (31.6-35.5); Mean Corpuscular Hemoglobin 28.6 pg (28.0-33.3); Mean Corpuscular Volume 87.5 fL (83.0-100.0); Mean Platelet Volume 10.6 fL (9.4-12.4); Monocytes # 0.5 K/mcL (0.0-1.3); Monocytes % 9.9 %; Neutrophils # 2.8 K/mcL (1.6-8.9); Platelet Count 101 K/mcL (140-400); Red Blood Count 2.97 M/mcL (4.19-5.50); Red Cell Distribution Width 15.1 % (11.5-14.5); Segmented Neutrophils % 57.5 %
[2017-06-25 04:48] LABS: Calcium 7.2 mg/dL (8.6-10.3); Potassium 3.7 mEq/L (3.5-5.1)
[2017-06-25] MEDS: Metoprolol XL (24 HR) Succ 50 MG TAB.ER.24H PO SCH (08:08)
[2017-06-25] MEDS: Venlafaxine XR (24 HR) 150 MG CAP.ER.24H PO SCH (08:08)
[2017-06-25] MEDS: Chlorhexidine Rinse 15 ML MOUTHWASH MM SCH ×2 (08:09→20:43)
[2017-06-25] MEDS: Docusate Oral Soln 100 MG/10 ML UDC PO SCH ×2 (08:09→20:43)
[2017-06-25] MEDS: *HR* Amiodarone 200 MG TABLET PO SCH ×2 (08:09→20:40)
--- NOTE | 2017-06-25 08:59 | Cardiothoracic Progress Note ---
Date of Encounter: 06/25/17 Time of Encounter: 08:57 - Assessment and plan (1) CAD (coronary artery disease) Current Visit: No Status: Chronic I will plan to discharge the patient to home on Wednesday. We will arrange for a visiting nurse. I will reduce his dosage of Toprol and amiodarone. Qualifiers: Coronary Disease-Associated Artery/Lesion type: [place] artery [place] vs. transplanted heart: [place] heart Associated angina: with unstable angina Qualified Code(s): I25.110 - Atherosclerotic heart disease of [place] coronary artery with unstable angina pectoris - Subjective Interval history: The patient has no complaints and is anxious to be discharged soon. He did have to have a Mosqueda catheter inserted yesterday for urinary retention. He will have this removed by urology in the office in several weeks. He does want to go home and not to a rehabilitation facility. He states that he has had catheters before and is comfortable dealing with that. Vital Signs, Last 4 Hours Resp Pulse Ox 06/25/17 08:31 18 95 Oxgyen Flow Rate Oxygen Flow Rate (LPM) 2 Weight 06/23/17 06/24/17 06/25/17 23:59 23:59 23:59 Weight 103.2 kg 104.9 kg Lungs are clear to percussion and auscultation. Heart is in a normal sinus rhythm. All incisions are healing well without signs of infection and the sternum is stable. Chest x-ray reveals a small amount of fluid or atelectasis in the left lower lobe area. - Labs 06/25/17 04:12 06/25/17 04:12 Lab Results, Last 24 hours 06/25/17 06/25/17 04:12 04:12 WBC 4.9 Hgb 8.5 L Hct 26.0 L Plt Count 101 L Sodium 135 L Potassium 3.7 Chloride 105 Carbon Dioxide 25 BUN 52 H Creatinine 3.15 H Glucose 121 H Calcium 7.2 L - VTE Documentation of Mechanical Device: Graduated compression elastic hosiery Consult Discharge Plan - Plan Referrals: Analilia Montero, CORPORATE COMMUNICATIONS MANAGER [Primary Care Provider] -
--- NOTE | 2017-06-25 10:27 | Nephrology Progress Note ---
Date of Encounter: 06/25/17 Time of Encounter: 10:00 - Assessment and Plan (1) CKD (chronic kidney disease) stage 4, GFR 15-29 ml/min Current Visit: No Status: Chronic S/P CABG x 3. History CKD 4, baseline creat 2.2-2.5. SBP improved. Creat 3.15 from 3.07 yesterday. K+ 3.7. Will start gentle IV hydration for 24 hours. 0.9 NS at 75cc/hr. Urology consulted for urinary retention. Avoid nephrotoxins. Subjective Principal diagnosis: f/u of chronic kidney disease stage IV Interval history: States doing good, feels good. States sat up in chair for 3 hours this morning. Documented urine output 1300cc, bladder scan prior to [place] reinsert 388 cc. SBP 118-130. Objective - Vital Signs Vital signs: Vital Signs Temp Pulse Resp BP Pulse Ox 06/25/17 08:31 18 95 06/25/17 08:00 96 06/25/17 07:00 98.7 F 97 18 158/94 92 06/25/17 04:45 15 91 06/25/17 03:50 98.8 F 91 14 118/71 90 06/25/17 00:15 15 92 06/24/17 23:11 94 06/24/17 23:09 98.3 F 94 16 133/78 91 06/24/17 20:42 97.9 F 06/24/17 20:05 16 94 06/24/17 19:45 87 16 159/82 92 06/24/17 18:00 87 16 134/81 100 06/24/17 16:08 16 99 06/24/17 16:00 98.1 F 88 16 129/73 99 06/24/17 15:00 87 06/24/17 14:00 91 16 102/64 99 06/24/17 12:00 87 16 124/77 100 06/24/17 11:35 16 100 06/24/17 11:00 86 Intake and Output 06/24/17 06/25/17 06/25/17 23:59 07:59 15:59 Output Total 450 / 450 575 / 575 Balance -450 / -450 -575 / -575 Output: Catheter 450 / 450 575 / 575 Other: Meal Dinner Percent of Meal Consumed 15% 70% Weight 104.9 kg Blood Glucose* 130 130 - General Appearance General appearance: Present: well-developed, well-nourished, appears started age EENT: Present: mucous membranes moist Neck: Present: no JVD Respiratory: Present: clear Cardiology: Present: no edema, regular rate, regular rhythm Gastrointestinal: Present: normoactive bowel sounds, no tenderness Integumentary: Present: warm and dry Neurologic: Present: alert and oriented x3 Psychiatric: Present: mood/affect appropriate, cooperative - Lab 06/25/17 04:12 06/25/17 04:12 Most recent lab results ABG pH 7.38 pH Units (7.32-7.45) 06/19/17 03:49 ABG pCO2 42 mmHg (35-45) 06/19/17 03:49 ABG pO2 66 mmHg (85-104) L 06/19/17 03:49 ABG HCO3 25 mEq/L (21-27) 06/19/17 03:49 ABG O2 Saturation 92 % (95-98) L 06/19/17 03:49 Calcium 7.2 mg/dL (8.6-10.3) L 06/25/17 04:12 Phosphorus 2.4 mg/dL (2.7-4.5) L 06/21/17 03:15 Magnesium 2.2 mg/dL (1.6-2.6) 06/18/17 04:30 - VTE Documentation of Mechanical Device: Graduated compression elastic hosiery Consult Discharge Plan - Plan Referrals: Analilia Montero, STAIR BUILDER [Primary Care Provider] -
[2017-06-25] MEDS: 0.9 % Sodium Chloride 1,000 ML IVC SCH (11:36)
[2017-06-25] MEDS ORDERED: D5% in Water 1,000 ML IVC PRN ×2 (14:25→15:37)
[2017-06-25] MEDS: Gabapentin 300 MG CAPSULE PO SCH (20:40)
[2017-06-25] MEDS: traZODone 50 MG TABLET PO PRN (20:40)
[2017-06-25] MEDS ORDERED: Insulin LISPRO 300 UNITS/3 ML VIAL SQ SCH (21:00)
[2017-06-26 00:44] LABS: Basophils % 0.2 %; Eosinophils # 0.4 K/mcL (0.0-0.6); Eosinophils % 8.7 %; Hematocrit 28.3 % (37.5-50.1); Hemoglobin 9.1 g/dL (12.9-16.9); Immature Granulocytes % 0.6 % (0-4); Lymphocytes # 1.4 K/mcL (0.6-4.6); Lymphocytes % 27.2 %; Mean Corpuscular HGB Conc 32.2 g/dL (31.6-35.5); Mean Corpuscular Hemoglobin 28.5 pg (28.0-33.3); Mean Corpuscular Volume 88.7 fL (83.0-100.0); Mean Platelet Volume 10.4 fL (9.4-12.4); Monocytes # 0.4 K/mcL (0.0-1.3); Monocytes % 8.1 %; Neutrophils # 2.8 K/mcL (1.6-8.9); Platelet Count 119 K/mcL (140-400); Red Blood Count 3.19 M/mcL (4.19-5.50); Segmented Neutrophils % 55.2 %
[2017-06-26 01:25] LABS: Calcium 7.4 mg/dL (8.6-10.3); Potassium 3.9 mEq/L (3.5-5.1)
[2017-06-26] MEDS: *HR* OxyCODONE/APAP 5/325 TABLET PO PRN ×5 (03:35→19:59)
[2017-06-26] MEDS: 0.9 % Sodium Chloride 1,000 ML IVC SCH (03:36)
[2017-06-26] MEDS: *HR* Heparin 5,000 UNIT/ML VIAL SQ SCH ×2 (06:34→18:11)
[2017-06-26] MEDS: *HR* Morphine 2 MG/ML SYRINGE IVP PRN ×3 (06:35→13:06)
[2017-06-26] MEDS: Insulin LISPRO 300 UNITS/3 ML VIAL SQ SCH ×3 (08:05→16:32)
[2017-06-26] MEDS: *HR* Amiodarone 200 MG TABLET PO SCH ×2 (08:06→19:59)
[2017-06-26] MEDS: Chlorhexidine Rinse 15 ML MOUTHWASH MM SCH ×2 (08:07→19:59)
[2017-06-26] MEDS: Metoprolol XL (24 HR) Succ 50 MG TAB.ER.24H PO SCH (08:07)
[2017-06-26] MEDS: Venlafaxine XR (24 HR) 150 MG CAP.ER.24H PO SCH (08:07)
[2017-06-26] MEDS: Docusate Oral Soln 100 MG/10 ML UDC PO SCH ×2 (08:07→19:59)
--- NOTE | 2017-06-26 08:19 | Cardiothoracic Progress Note ---
Date of Encounter: 06/26/17 Time of Encounter: 08:17 - Assessment and plan (1) CAD (coronary artery disease) Current Visit: No Status: Chronic The patient's creatinine is improving. We will plan to discharge him tomorrow if he seems ready. We will arrange for a visiting nurse. Qualifiers: Coronary Disease-Associated Artery/Lesion type: [place] artery [place] vs. transplanted heart: [place] heart Associated angina: with unstable angina Qualified Code(s): I25.110 - Atherosclerotic heart disease of [place] coronary artery with unstable angina pectoris - Subjective Interval history: The patient has no complaints and is anxious to go home. Vital Signs, Last 4 Hours Temp Pulse Resp BP Pulse Ox 06/26/17 07:27 98.3 F 87 16 136/91 93 06/26/17 04:27 18 91 Oxgyen Flow Rate Oxygen Flow Rate (LPM) 0 Weight 06/24/17 06/25/17 06/26/17 23:59 23:59 23:59 Weight 104.9 kg Lungs are clear to percussion and auscultation. Heart is in a normal sinus rhythm. All incisions are healing well without signs of infection and the sternum is stable. - Labs 06/26/17 00:07 06/26/17 00:07 Lab Results, Last 24 hours 06/26/17 06/26/17 00:07 00:07 WBC 5.0 Hgb 9.1 L Hct 28.3 L Plt Count 119 L Sodium 136 Potassium 3.9 Chloride 104 Carbon Dioxide 25 BUN 47 H Creatinine 2.84 H Glucose 151 H Calcium 7.4 L - VTE Documentation of Mechanical Device: Graduated compression elastic hosiery Consult Discharge Plan - Plan Referrals: Analilia Montero, VETERINARY POULTRY INSPECTOR [Primary Care Provider] -
--- NOTE | 2017-06-26 09:43 | Nephrology Progress Note ---
Date of Encounter: 06/26/17 Time of Encounter: 09:10 - Assessment and Plan (1) CKD (chronic kidney disease) stage 4, GFR 15-29 ml/min Current Visit: No Status: Chronic S/P CABG x 3. History CKD 4, baseline creat 2.2-2.5. Renal fct improving following IV fluids yesterday. Creat 2.84 from 3.15 yesterday. Urology consulted for urinary retention. Documented urine output 1900cc. Avoid nephrotoxins. Subjective Principal diagnosis: f/u of chronic kidney disease stage IV Interval history: Transferred out of ICU. Sitting up in chair. States eating and drinking well. Objective - Vital Signs Vital signs: Vital Signs Temp Pulse Resp BP Pulse Ox 06/26/17 08:19 16 94 06/26/17 07:50 82 06/26/17 07:27 98.3 F 87 16 136/91 93 06/26/17 04:27 18 91 06/26/17 03:50 98.3 F 85 18 166/95 95 06/26/17 00:50 79 06/25/17 23:40 16 95 06/25/17 23:06 97.9 F 81 19 138/88 94 06/25/17 20:47 78 06/25/17 19:53 16 97 06/25/17 17:50 97.7 F 82 18 141/86 89 06/25/17 16:00 98.1 F 78 16 155/87 96 06/25/17 15:42 16 96 06/25/17 12:04 98.1 F 06/25/17 11:45 16 95 Intake and Output 06/25/17 06/26/17 06/26/17 23:59 07:59 15:59 Intake Total 920 / 920 1700 / 1700 Output Total 850 / 850 995 / 995 Balance 70 / 70 705 / 705 Intake: IV Fluids 1000 / 1000 0.9 % Sodium Chloride 1,000 ML 1000 / 1000 @ 75 mls/hr IVC .[id number] [facility] Rx #:[id number] Oral 920 / 920 700 / 700 Output: Catheter 850 / 850 995 / 995 Urethral ([place]) 230 / 230 Other: Blood Glucose* 191 138 - General Appearance General appearance: Present: well-developed, well-nourished, appears started age EENT: Present: mucous membranes moist Neck: Present: no JVD Respiratory: Present: clear Cardiology: Present: no edema, regular rate, regular rhythm Gastrointestinal: Present: normoactive bowel sounds, no tenderness Integumentary: Present: warm and dry Neurologic: Present: alert and oriented x3 - Lab 06/26/17 00:07 06/26/17 00:07 Most recent lab results ABG pH 7.38 pH Units (7.32-7.45) 06/19/17 03:49 ABG pCO2 42 mmHg (35-45) 06/19/17 03:49 ABG pO2 66 mmHg (85-104) L 06/19/17 03:49 ABG HCO3 25 mEq/L (21-27) 06/19/17 03:49 ABG O2 Saturation 92 % (95-98) L 06/19/17 03:49 Calcium 7.4 mg/dL (8.6-10.3) L 06/26/17 00:07 Phosphorus 2.4 mg/dL (2.7-4.5) L 06/21/17 03:15 Magnesium 2.2 mg/dL (1.6-2.6) 06/18/17 04:30 - VTE Documentation of Mechanical Device: Graduated compression elastic hosiery Consult Discharge Plan - Plan Referrals: Analilia Montero, NÉSTOR [Primary Care Provider] -
[2017-06-26] MEDS: Gabapentin 300 MG CAPSULE PO SCH (19:59)
[2017-06-26] MEDS: traZODone 50 MG TABLET PO PRN (20:24)
[2017-06-27] MEDS: *HR* OxyCODONE/APAP 5/325 TABLET PO PRN ×4 (00:27→16:54)
[2017-06-27] MEDS: *HR* Morphine 2 MG/ML SYRINGE IVP PRN ×2 (04:43→20:12)
[2017-06-27 06:49] LABS: Basophils % 0.2 %; Eosinophils # 0.3 K/mcL (0.0-0.6); Eosinophils % 5.2 %; Hematocrit 31.2 % (37.5-50.1); Hemoglobin 9.9 g/dL (12.9-16.9); Immature Granulocytes % 0.5 % (0-4); Lymphocytes # 1.2 K/mcL (0.6-4.6); Lymphocytes % 18.9 %; Mean Corpuscular HGB Conc 31.7 g/dL (31.6-35.5); Mean Corpuscular Hemoglobin 28.2 pg (28.0-33.3); Mean Corpuscular Volume 88.9 fL (83.0-100.0); Mean Platelet Volume 10.2 fL (9.4-12.4); Monocytes # 0.4 K/mcL (0.0-1.3); Monocytes % 6.7 %; Neutrophils # 4.3 K/mcL (1.6-8.9); Nucleated Red Blood Cells 0.6 /100 WBC (0); Platelet Count 143 K/mcL (140-400); Red Blood Count 3.51 M/mcL (4.19-5.50); Red Cell Distribution Width 15.1 % (11.5-14.5); Segmented Neutrophils % 68.5 %
[2017-06-27] MEDS: *HR* Heparin 5,000 UNIT/ML VIAL SQ SCH ×2 (06:58→16:54)
[2017-06-27 07:04] LABS: Calcium 7.7 mg/dL (8.6-10.3)
[2017-06-27] MEDS: Venlafaxine XR (24 HR) 150 MG CAP.ER.24H PO SCH (07:51)
[2017-06-27] MEDS: *HR* Amiodarone 200 MG TABLET PO SCH ×2 (07:51→20:13)
[2017-06-27] MEDS: Metoprolol XL (24 HR) Succ 50 MG TAB.ER.24H PO SCH (07:51)
[2017-06-27] MEDS: Docusate Oral Soln 100 MG/10 ML UDC PO SCH ×2 (07:51→20:14)
[2017-06-27] MEDS: Insulin LISPRO 300 UNITS/3 ML VIAL SQ SCH ×3 (07:51→16:52)
[2017-06-27] MEDS: Chlorhexidine Rinse 15 ML MOUTHWASH MM SCH ×2 (07:51→20:14)
--- NOTE | 2017-06-27 09:03 | Cardiothoracic Progress Note ---
Date of Encounter: 06/27/17 Time of Encounter: 09:00 - Assessment and plan (1) CAD (coronary artery disease) Current Visit: No Status: Chronic The patient was on Norvasc 10 mg by mouth every day and Zestril 20 mg by mouth every day preoperatively. His blood pressure is elevated and I will restart his Norvasc today. If it remains elevated, we will restart his Zestril prior to discharge. Creatinine is back to baseline. We will plan to discharge the patient to a rehabilitation facility on Wednesday or Wednesday Qualifiers: Coronary Disease-Associated Artery/Lesion type: [place] artery [place] vs. transplanted heart: [place] heart Associated angina: with unstable angina Qualified Code(s): I25.110 - Atherosclerotic heart disease of [place] coronary artery with unstable angina pectoris - Subjective Interval history: The patient has no complaints and is ambulating. He is slowly gaining strength. He and his have decided that he should be discharged to a rehabilitation facility and I agree. Vital Signs, Last 4 Hours Temp Pulse Resp BP Pulse Ox 06/27/17 08:04 16 180/90 92 06/27/17 08:01 88 06/27/17 07:26 98.6 F 93 18 180/90 90 06/27/17 07:02 180/90 06/27/17 05:30 173/87 Oxgyen Flow Rate Oxygen Flow Rate (LPM) 0 Weight 06/25/17 06/26/17 06/27/17 23:59 23:59 23:59 Weight 104.2 kg Lungs are clear to percussion and auscultation. Heart is in a normal sinus rhythm. All incisions are healing well without signs of infection and the sternum is stable. - Labs 06/27/17 06:20 06/27/17 06:20 Lab Results, Last 24 hours 06/27/17 06/27/17 06:20 06:20 WBC 6.3 Hgb 9.9 L Hct 31.2 L Plt Count 143 Sodium 136 Potassium 4.0 Chloride 106 Carbon Dioxide 22 L BUN 39 H Creatinine 2.45 H Glucose 140 H Calcium 7.7 L - VTE Documentation of Mechanical Device: Graduated compression elastic hosiery Consult Discharge Plan - Plan Referrals: Analilia Montero, TEXTILE CONVERSION MANAGER [Primary Care Provider] -
--- NOTE | 2017-06-27 10:09 | Nephrology Progress Note ---
Date of Encounter: 06/27/17 Time of Encounter: 09:50 - Assessment and Plan (1) CKD (chronic kidney disease) stage 4, GFR 15-29 ml/min Current Visit: No Status: Chronic S/P CABG x 3. History CKD 4, baseline creat 2.2-2.5. Renal fct improving, at baseline. Creat 2.45. SBP elevated, noted restarted on Norvasc. Subjective Principal diagnosis: f/u of chronic kidney disease stage IV Interval history: Laying in bed, states will go to [facility] upon discharge for rehab. Objective - Vital Signs Vital signs: Vital Signs Temp Pulse Resp BP Pulse Ox 06/27/17 08:04 16 180/90 92 06/27/17 08:01 88 06/27/17 07:26 98.6 F 93 18 180/90 90 06/27/17 07:02 180/90 06/27/17 05:30 173/87 06/27/17 04:57 17 93 06/27/17 04:55 170/93 06/27/17 04:02 98.1 F 81 18 173/92 93 06/26/17 23:41 16 95 06/26/17 23:13 98.4 F 86 18 159/94 96 06/26/17 20:00 86 06/26/17 19:45 16 158/70 91 06/26/17 18:45 97.9 F 79 18 158/70 91 06/26/17 16:16 97.5 F L 83 18 140/110 90 06/26/17 15:41 78 06/26/17 11:52 16 96 06/26/17 11:32 84 06/26/17 11:14 97.8 F 83 16 152/88 92 Intake and Output 06/26/17 06/27/17 06/27/17 23:59 07:59 15:59 Output Total 950 / 950 Balance -950 / -950 Output: Catheter 950 / 950 Other: Meal Dinner Breakfast Percent of Meal Consumed 50% 100% Weight 104.2 kg Blood Glucose* 175 152 Patient Weight 06/27/17 23:59 Weight 104.2 kg - General Appearance General appearance: Present: well-developed, well-nourished, appears started age EENT: Present: mucous membranes moist Neck: Present: no JVD Additional Comments: few scattered wheezes. Cardiology: Present: no edema, regular rate, regular rhythm Gastrointestinal: Present: normoactive bowel sounds, no tenderness Integumentary: Present: warm and dry Neurologic: Present: alert and oriented x3 - Lab 06/27/17 06:20 06/27/17 06:20 Most recent lab results ABG pH 7.38 pH Units (7.32-7.45) 06/19/17 03:49 ABG pCO2 42 mmHg (35-45) 06/19/17 03:49 ABG pO2 66 mmHg (85-104) L 06/19/17 03:49 ABG HCO3 25 mEq/L (21-27) 06/19/17 03:49 ABG O2 Saturation 92 % (95-98) L 06/19/17 03:49 Calcium 7.7 mg/dL (8.6-10.3) L 06/27/17 06:20 Phosphorus 2.4 mg/dL (2.7-4.5) L 06/21/17 03:15 Magnesium 2.2 mg/dL (1.6-2.6) 06/18/17 04:30 - VTE Documentation of Mechanical Device: Graduated compression elastic hosiery Consult Discharge Plan - Plan Referrals: Analilia Montero, LPC [Primary Care Provider] -
[2017-06-27] MEDS: amLODIPine 5 MG TABLET PO SCH (11:48)
[2017-06-27] MEDS: traZODone 50 MG TABLET PO PRN (20:11)
[2017-06-27] MEDS: Gabapentin 300 MG CAPSULE PO SCH (20:13)
[2017-06-28] MEDS: *HR* OxyCODONE/APAP 5/325 TABLET PO PRN ×3 (01:43→17:32)
[2017-06-28 03:51] LABS: Basophils % 0.3 %; Eosinophils # 0.3 K/mcL (0.0-0.6); Eosinophils % 4.6 %; Hematocrit 27.9 % (37.5-50.1); Hemoglobin 9.3 g/dL (12.9-16.9); Immature Granulocytes % 0.7 % (0-4); Lymphocytes # 1.2 K/mcL (0.6-4.6); Lymphocytes % 20.7 %; Mean Corpuscular HGB Conc 33.3 g/dL (31.6-35.5); Mean Corpuscular Hemoglobin 28.9 pg (28.0-33.3); Mean Corpuscular Volume 86.6 fL (83.0-100.0); Mean Platelet Volume 9.8 fL (9.4-12.4); Monocytes # 0.4 K/mcL (0.0-1.3); Monocytes % 6.3 %; Platelet Count 162 K/mcL (140-400); Red Blood Count 3.22 M/mcL (4.19-5.50); Red Cell Distribution Width 14.7 % (11.5-14.5); Segmented Neutrophils % 67.4 %
[2017-06-28 05:06] LABS: Calcium 7.7 mg/dL (8.6-10.3); Potassium 3.9 mEq/L (3.5-5.1)
[2017-06-28] MEDS: *HR* Morphine 2 MG/ML SYRINGE IVP PRN (05:16)
[2017-06-28] MEDS: *HR* Heparin 5,000 UNIT/ML VIAL SQ SCH ×2 (05:17→17:26)
[2017-06-28] MEDS: Insulin LISPRO 300 UNITS/3 ML VIAL SQ SCH ×3 (08:28→17:27)
[2017-06-28] MEDS: Chlorhexidine Rinse 15 ML MOUTHWASH MM SCH ×2 (08:29→20:25)
[2017-06-28] MEDS: *HR* Amiodarone 200 MG TABLET PO SCH ×2 (08:38→20:24)
[2017-06-28] MEDS: Venlafaxine XR (24 HR) 150 MG CAP.ER.24H PO SCH (08:38)
[2017-06-28] MEDS: Docusate Oral Soln 100 MG/10 ML UDC PO SCH ×2 (08:38→20:25)
[2017-06-28] MEDS: amLODIPine 5 MG TABLET PO SCH (08:38)
[2017-06-28] MEDS: Metoprolol XL (24 HR) Succ 50 MG TAB.ER.24H PO SCH (08:38)
--- NOTE | 2017-06-28 09:24 | Cardiothoracic Progress Note ---
Date of Encounter: 06/28/17 Time of Encounter: 09:21 - Assessment and plan (1) CAD (coronary artery disease) Current Visit: No Status: Chronic The patient is recovering well from his CABG 3. He has begun ambulating in the hallways; however, continues to be fatigued and weak. He will require inpatient rehabilitation as a bridge to home. This is being arranged today and hopefully the patient will be able to be discharged tomorrow or the following day. The assessment and plan as outlined above was discussed with the patient and/or family members who expressed understanding and agreement. All questions were answered. Qualifiers: Coronary Disease-Associated Artery/Lesion type: [place] artery [place] vs. transplanted heart: [place] heart Associated angina: with unstable angina Qualified Code(s): I25.110 - Atherosclerotic heart disease of [place] coronary artery with unstable angina pectoris - Subjective Procedure(s) Performed: POD#11 S/P CABG3 POD#10 S/P Mediastinal reexploration Interval history: The patient remained hemodynamically stable overnight. He has been ambulating in the hallways; however, complaints of fatigue and weakness. Vital Signs, Last 4 Hours Temp Pulse Resp BP Pulse Ox 06/28/17 08:12 98.2 F 100 18 167/97 93 06/28/17 08:03 18 95 Oxgyen Flow Rate Oxygen Flow Rate (LPM) 0 Weight 06/26/17 06/27/17 06/28/17 23:59 23:59 23:59 Weight 104.2 kg 101.8 kg - Physical Examination General: Conversant, No Apparent Distress Neck: No JVD, Normal carotid pulses Cardiac: Reg Rate and Rhythm, Normal S1 and S2, No Murmur Incision: No signs of infection, Dry/intact dressing Sternum: Stable Lungs: Normal Breath Sounds, No Wheeze, Rales, Rhonchi Neuro: Alert and responsive, No focal deficits noted Vascular: Normal capillary refill Extremities: No Clubbing, No Cyanosis, No Edema - Labs 06/28/17 03:20 06/28/17 03:20 Lab Results, Last 24 hours 06/28/17 06/28/17 03:20 03:20 WBC 5.9 Hgb 9.3 L Hct 27.9 L Plt Count 162 Sodium 135 L Potassium 3.9 Chloride 106 Carbon Dioxide 22 L BUN 32 H Creatinine 2.08 H Glucose 140 H Calcium 7.7 L - VTE Documentation of Mechanical Device: Graduated compression elastic hosiery Consult Discharge Plan - Plan Referrals: Jonnie Crowder CNP [Advanced Practice Nurse] - 07/06/17 2:00 pm David Irvin MD [Partnered Physician] - 07/22/17 1:30 pm Analilia Montero CNP [Primary Care Provider] -
[2017-06-28] MEDS ORDERED: Lisinopril 20 MG TABLET PO SCH (09:30)
[2017-06-28] MEDS ORDERED: *HR* OxyCODONE Immed Rel 5 MG TABLET PO PRN (09:45)
--- NOTE | 2017-06-28 12:10 | Nephrology Progress Note ---
Date of Encounter: 06/28/17 Time of Encounter: 11:50 - Assessment and Plan (1) CKD (chronic kidney disease) stage 4, GFR 15-29 ml/min Current Visit: No Status: Chronic S/P CABG x 3. History CKD 4, baseline creat 2.2-2.5. Renal fct improving. Creat 2.08. SBP elevated, noted restarted on Norvasc and addition of Lisinopril. Subjective Principal diagnosis: f/u of chronic kidney disease stage IV Interval history: Laying in bed, states will go to [facility] upon discharge for rehab. Objective - Vital Signs Vital signs: Vital Signs Temp Pulse Resp BP Pulse Ox 06/28/17 11:35 98.0 F 83 18 151/88 95 06/28/17 11:18 18 93 06/28/17 08:12 98.2 F 100 18 167/97 93 06/28/17 08:03 18 95 06/28/17 03:23 98.1 F 88 18 156/98 92 06/28/17 00:18 98.8 F 94 18 145/94 97 06/27/17 23:44 17 91 06/27/17 20:08 98.1 F 90 18 164/89 90 06/27/17 19:45 16 160/95 91 06/27/17 16:30 99.1 F 96 18 160/95 91 Intake and Output 06/27/17 06/28/17 06/28/17 23:59 07:59 15:59 Intake Total 120 / 120 180 / 180 Output Total 925 / 925 1500 / 1500 Balance -805 / -805 -1320 / -1320 Intake: Oral 120 / 120 180 / 180 Output: Catheter 925 / 925 1500 / 1500 Urethral ([place]) 925 / 925 Other: Meal Dinner Breakfast Percent of Meal Consumed 15% 15% Weight 101.8 kg Blood Glucose* 119 162 Patient Weight 06/28/17 23:59 Weight 101.8 kg - General Appearance General appearance: Present: well-developed, well-nourished, appears started age EENT: Present: mucous membranes moist Neck: Present: no JVD Respiratory: Present: clear Cardiology: Present: no edema, regular rate, regular rhythm Gastrointestinal: Present: normoactive bowel sounds, no tenderness Integumentary: Present: warm and dry Neurologic: Present: alert and oriented x3 - Lab 06/28/17 03:20 06/28/17 03:20 Most recent lab results ABG pH 7.38 pH Units (7.32-7.45) 06/19/17 03:49 ABG pCO2 42 mmHg (35-45) 06/19/17 03:49 ABG pO2 66 mmHg (85-104) L 06/19/17 03:49 ABG HCO3 25 mEq/L (21-27) 06/19/17 03:49 ABG O2 Saturation 92 % (95-98) L 06/19/17 03:49 Calcium 7.7 mg/dL (8.6-10.3) L 06/28/17 03:20 Phosphorus 2.4 mg/dL (2.7-4.5) L 06/21/17 03:15 Magnesium 2.2 mg/dL (1.6-2.6) 06/18/17 04:30 - VTE Documentation of Mechanical Device: Graduated compression elastic hosiery Consult Discharge Plan - Plan Referrals: Jonnie Crowder CNP [Advanced Practice Nurse] - 07/06/17 2:00 pm David Irvin MD [Partnered Physician] - 07/22/17 1:30 pm Analilia Montero CNP [Primary Care Provider] - 07/06/17 10:35 am
[2017-06-28] MEDS: *HR* OxyCODONE Immed Rel 5 MG TABLET PO PRN ×2 (14:34→20:25)
[2017-06-28] MEDS: Gabapentin 300 MG CAPSULE PO SCH (20:24)
[2017-06-28] MEDS: traZODone 50 MG TABLET PO PRN (20:25)
[2017-06-29] MEDS: *HR* OxyCODONE/APAP 5/325 TABLET PO PRN ×2 (03:51→08:20)
[2017-06-29] MEDS: *HR* Heparin 5,000 UNIT/ML VIAL SQ SCH (06:06)
[2017-06-29 07:21] VITALS: BP 156/99
[2017-06-29] MEDS: Insulin LISPRO 300 UNITS/3 ML VIAL SQ SCH (07:34)
--- NOTE | 2017-06-29 08:26 | Nephrology Progress Note ---
Date of Encounter: 06/29/17 Time of Encounter: 08:25 - Assessment and Plan (1) CKD (chronic kidney disease) stage 4, GFR 15-29 ml/min Current Visit: No Status: Chronic Patient has stage IV chronic kidney disease in the setting of diabetes and hypertension. As of yesterday the patient's renal function was stable. Blood pressure remains suboptimal. I am going to increase his lisinopril. (2) CAD (coronary artery disease) Current Visit: No Status: Chronic Qualifiers: Coronary Disease-Associated Artery/Lesion type: [place] artery [place] vs. transplanted heart: [place] heart Associated angina: with unstable angina Qualified Code(s): I25.110 - Atherosclerotic heart disease of [place] coronary artery with unstable angina pectoris (3) LATIA (acute kidney injury) Current Visit: No Status: Acute (4) S/P CABG x 3 Current Visit: Yes Status: Acute Subjective Principal diagnosis: f/u of chronic kidney disease stage IV Interval history: Patient is complaining of some constipation. Otherwise he says he is doing well. Blood pressure remains elevated. As of yesterday renal function was stable. Urine output is excellent. Objective - Vital Signs Vital signs: Vital Signs Temp Pulse Resp BP Pulse Ox 06/29/17 08:05 16 91 06/29/17 07:17 98 F 88 14 156/99 94 06/29/17 03:55 98.2 F 89 19 160/88 90 06/29/17 03:50 80 06/29/17 01:05 14 96 06/29/17 00:30 99.2 F 84 16 160/87 93 06/28/17 20:25 86 06/28/17 19:01 98.0 F 89 19 137/87 95 06/28/17 16:48 97.8 F 80 18 150/84 93 06/28/17 16:27 18 95 06/28/17 11:35 98.0 F 83 18 151/88 95 06/28/17 11:18 18 93 Intake and Output 06/28/17 06/29/17 06/29/17 23:59 07:59 15:59 Intake Total 720 / 720 345 / 345 Output Total 445 / 445 600 / 600 Balance 275 / 275 -255 / -255 Intake: Oral 720 / 720 345 / 345 Output: Catheter 445 / 445 600 / 600 Other: Weight 102.25 kg Blood Glucose* 149 113 Patient Weight 06/29/17 23:59 Weight 102.25 kg - General Appearance Exam: Patient is alert and oriented. He is in no acute distress. Lungs sounds otherwise clear. Heart regular rate and rhythm. Abdomen is benign. There is no lower extremity swelling. - Lab 06/28/17 03:20 06/28/17 03:20 Most recent lab results ABG pH 7.38 pH Units (7.32-7.45) 06/19/17 03:49 ABG pCO2 42 mmHg (35-45) 06/19/17 03:49 ABG pO2 66 mmHg (85-104) L 06/19/17 03:49 ABG HCO3 25 mEq/L (21-27) 06/19/17 03:49 ABG O2 Saturation 92 % (95-98) L 06/19/17 03:49 Calcium 7.7 mg/dL (8.6-10.3) L 06/28/17 03:20 Phosphorus 2.4 mg/dL (2.7-4.5) L 06/21/17 03:15 Magnesium 2.2 mg/dL (1.6-2.6) 06/18/17 04:30 - VTE Documentation of Mechanical Device: Intermittent pneumatic compression device Consult Discharge Plan - Plan Referrals: Jonnie Crowder CNP [Advanced Practice Nurse] - 07/06/17 2:00 pm David Irvin MD [Partnered Physician] - 07/22/17 1:30 pm Analilia Montero CNP [Primary Care Provider] - 07/06/17 10:35 am
[2017-06-29] MEDS: Chlorhexidine Rinse 15 ML MOUTHWASH MM SCH (08:52)
[2017-06-29] MEDS: *HR* Amiodarone 200 MG TABLET PO SCH (08:52)
[2017-06-29] MEDS: Venlafaxine XR (24 HR) 150 MG CAP.ER.24H PO SCH (08:52)
[2017-06-29] MEDS: amLODIPine 5 MG TABLET PO SCH (08:52)
[2017-06-29] MEDS: Docusate Oral Soln 100 MG/10 ML UDC PO SCH (08:52)
[2017-06-29] MEDS: Metoprolol XL (24 HR) Succ 50 MG TAB.ER.24H PO SCH (08:52)
[2017-06-29] MEDS ORDERED: MOM Conc 10 ML UD.LIQ PO ONE (09:18)
--- NOTE | 2017-06-29 09:37 | Discharge Summary ---
Date of Encounter: 06/29/17 Time of Encounter: 09:22 - Discharge Diagnosis (1) CAD (coronary artery disease) Priority: Primary Status: Chronic Qualifiers: Coronary Disease-Associated Artery/Lesion type: [place] artery [place] vs. transplanted heart: [place] heart Associated angina: with unstable angina Qualified Code(s): I25.110 - Atherosclerotic heart disease of [place] coronary artery with unstable angina pectoris - Discharge Medications Prescriptions: OxyCODONE Immed Rel [Roxicodone 5 MG] 5 mg PO Q4HR PRN 7 Days #20 tablet PRN Reason: Moderate Pain Amiodarone [Cordarone] 200 mg PO BID #60 tablet Home Medications: Atorvastatin Calcium [Lipitor] 20 mg PO HS 04/02/16 [History] Isosorbide MONOnitrate (24 HR) [Imdur] 30 mg PO DAILY 04/02/16 [History] Buspirone HCl [Buspar] 7.5 mg PO BID 11/12/16 [History] Clopidogrel [Plavix] 75 mg PO DAILY 11/12/16 [History] Gabapentin [Neurontin] 300 mg PO HS 11/12/16 [History] Tramadol HCl [Ultram] 50 - 100 mg PO BID PRN 11/12/16 [History] Venlafaxine XR (24 HR) [Effexor Xr] 150 mg PO DAILY 11/12/16 [History] Ferrous Sulfate [Iron] 325 mg PO DAILY 02/13/17 [History] Cyanocobalamin (Vitamin B-12) [Vitamin B-12] 1,000 mcg SL DAILY 02/14/17 [ History] Trazodone HCl 100 mg PO HS 02/14/17 [History] Glimepiride [Amaryl] 2 mg PO DAILY 06/10/17 [History] Nitroglycerin [Nitrostat] 0.4 mg SL Q5-6MIN PRN 06/10/17 [History] Amiodarone [Cordarone] 200 mg PO BID #60 tablet 06/29/17 [Rx] Amlodipine Besylate 10 mg PO DAILY #0 06/29/17 [Rx] Buspirone HCl [Buspar] 7.5 mg PO BID PRN tablet 06/29/17 [Rx] Docusate [Colace] 100 mg PO BID udc 06/29/17 [Rx] Insulin LISPRO [HumaLOG] 0 units SQ TIDAC vial 06/29/17 [Rx] Metoprolol XL (24 HR) Succ [Toprol Xl] 100 mg PO DAILY tab.er.24h 06/29/17 [Rx] OxyCODONE Immed Rel [Roxicodone 5 MG] 5 mg PO Q4HR PRN 7 Days #20 tablet [Rx] Venlafaxine XR (24 HR) [Effexor Xr] 150 mg PO DAILY cap.er.24h 06/29/17 [Rx] Allergies/Adverse Reactions: 3 Allergy/AdvReac Type Severity Reaction Status Date / Time No Known Allergies Allergy Verified 02/14/17 13:39 Date of admission: 06/17/17 11:21 Primary care physician: Analilia Montero CNP Consults: 06/17/17 07:10 Consult for Pharmacy Education [CONS] Routine Reason for Consult: open heart Call Completed: Yes 06/17/17 13:49 Consult to Cardiac Rehabilitation-Phase1 [CONS] Routine Comment: Reason for Consult: Post open heart Call Completed: Yes Consult to Director Of Health Care Marketing [CONS] Routine Reason for SW Consult: open heart 06/18/17 08:56 Consult to Pulmonology [CONS] Stat Consulting Provider: [facility] [place] Reason for Consult: ICU care Call Completed: Yes 06/18/17 08:57 Consult to Nephrology [CONS] Stat Consulting Provider: [facility] JUAN JOSE Reason for Consult: CKD Call Completed: Yes 06/22/17 09:03 Consult for Pharmacy Education [CONS] Routine Reason for Consult: Post-Op Heart Call Completed: Yes Consult to Occupational Therapy [CONS] Routine Comment: Evaluate, develop and implement POC Reason for Consult: Post-Op Heart Consult to Physical Therapy [CONS] Routine Comment: Evaluate, develop and implement POC Reason for Consult: Post open heart 06/23/17 10:59 Consult to Invasive Line Access Team [CONS] Routine Reason for Consult: IV ACCESS Line Type: EPIV 06/24/17 11:35 Consult to Urology [CONS] Routine Consulting Provider: Urology Faye Reason for Consult: urinary retention Call Completed: Yes Procedure(s) Performed: June 17, 2016. Coronary artery bypass grafting 3, utilizing the left internal mammary artery and insertion of percutaneous intra-aortic balloon pump. June 18, 2016. Return to the operating room for reexploration for postoperative bleeding and tamponade. Discharging clinician: David Irvin Anticipated date of discharge: 06/29/17 - Patient Status Disposition: Transfer Inpatient Rehab Fac Condition: Fair Functional capacity at discharge: independent ambulation Overall status at discharge: patient is progressing back to baseline - Discharge Instructions Follow Up With: Jonnie Crowder CNP [Advanced Practice Nurse] - 07/06/17 2:00 pm David Irvin MD [Partnered Physician] - 07/22/17 1:30 pm Analilia Montero CNP [Primary Care Provider] - (PATIENT IS GOING TO REHAB NO PCP APPOINTMENT NEEDED) - Hospital Course Hospital course: Mr. Esquivel is a 77 year old male The patient is a 77-year-old gentleman with preoperative renal failure with a creatinine of 2.4. He also has a history of hypertension, diabetes and hypercholesterolemia. He had been on Plavix blood thinner. He presented with coronary artery disease and he was referred for surgery. On June 17, 2016, I took him to the operating room for coronary artery bypass grafting 3, utilizing the left internal mammary artery. The coronary arteries were small and diffusely diseased. We also inserted an intra-aortic balloon pump. Postoperatively he put out 900 mL of blood over the first 5 hours. However, chest tube output increased to 250 mL an hour followed by 300 mL an hour. On June 18, 2016, I returned him to the OR for reexploration for postoperative bleeding. There were clots around the heart. There was no active bleeding and no suture was required. We did place some fibrillar. Postoperatively, we removed the intra-aortic balloon pump on the first postoperative day. He was followed by the nephrology service. Creatinine peaked at around 3.4. He did have atrial fibrillation and was converted to normal sinus rhythm with an amiodarone drip followed by by mouth amiodarone. He did have urinary retention, requiring reinsertion of a [place] catheter. He was seen by urology and they plan to remove the [place] catheter in several weeks. On June 29, the patient was discharged to a rehabilitation facility. At that time he was afebrile. Lungs were clear to percussion and auscultation. Heart was in a normal sinus rhythm. All incisions were healing well without signs of infection and the sternum was stable. Creatinine prior to discharge was 2.0. Discharge medications are on the med rec and include Percocet for pain. I did check the [place] automated Rx reporting system. He was given a one-week supply and he was postoperative. He did have acute pain secondary to surgery. Appropriate precautions were given. He was to return to his previous and regular diet. He was to avoid heavy lifting for a total of 3 months after surgery but to walk as much as possible. He was to avoid driving for 1 month. He was to follow-up and see me in the office in 4 weeks as directed. He was to follow-up with cardiology, nephrology, urology and his primary care doctor as directed. He was to call sooner for any difficulties. - Time Spent with Patient Total time spent providing and/or coordinating discharge services: Physical Examination Vital Signs, Last 4 Hours Temp Pulse Resp BP Pulse Ox 06/29/17 08:05 16 91 06/29/17 07:17 98 F 88 14 156/99 94 Open Heart Registry Aspirin Cont/Prescribed at DC: Yes Beta Rajat Cont/Prescribed at DC: Yes Statin Cont/Prescribed at DC: Yes GLYNN/ARB Cont/Prescribed at DC: Yes - VTE Documentation of Mechanical Device: Intermittent pneumatic compression device
--- NOTE | 2017-06-29 09:49 | Physician Discharge Referral ---
ExtendedCare Referral Info Transfer To: Rehab Provider in Charge after Transfer: PCP Institutional Level of Care: Intermediate (none) - Diagnosis (1) CAD (coronary artery disease) Priority: Primary Status: Chronic - Transfer Medications Prescriptions: OxyCODONE Immed Rel [Roxicodone 5 MG] 5 mg PO Q4HR PRN 7 Days #20 tablet PRN Reason: Moderate Pain Amiodarone [Cordarone] 200 mg PO BID #60 tablet Home Medications: Atorvastatin Calcium [Lipitor] 20 mg PO HS 04/02/16 [History] Isosorbide MONOnitrate (24 HR) [Imdur] 30 mg PO DAILY 04/02/16 [History] Buspirone HCl [Buspar] 7.5 mg PO BID 11/12/16 [History] Clopidogrel [Plavix] 75 mg PO DAILY 11/12/16 [History] Gabapentin [Neurontin] 300 mg PO HS 11/12/16 [History] Tramadol HCl [Ultram] 50 - 100 mg PO BID PRN 11/12/16 [History] Venlafaxine XR (24 HR) [Effexor Xr] 150 mg PO DAILY 11/12/16 [History] Ferrous Sulfate [Iron] 325 mg PO DAILY 02/13/17 [History] Cyanocobalamin (Vitamin B-12) [Vitamin B-12] 1,000 mcg SL DAILY 02/14/17 [ History] Trazodone HCl 100 mg PO HS 02/14/17 [History] Glimepiride [Amaryl] 2 mg PO DAILY 06/10/17 [History] Nitroglycerin [Nitrostat] 0.4 mg SL Q5-6MIN PRN 06/10/17 [History] Amiodarone [Cordarone] 200 mg PO BID #60 tablet 06/29/17 [Rx] Amlodipine Besylate 10 mg PO DAILY #0 06/29/17 [Rx] Buspirone HCl [Buspar] 7.5 mg PO BID PRN tablet 06/29/17 [Rx] Docusate [Colace] 100 mg PO BID udc 06/29/17 [Rx] Insulin LISPRO [HumaLOG] 0 units SQ TIDAC vial 06/29/17 [Rx] Metoprolol XL (24 HR) Succ [Toprol Xl] 100 mg PO DAILY tab.er.24h 06/29/17 [Rx] OxyCODONE Immed Rel [Roxicodone 5 MG] 5 mg PO Q4HR PRN 7 Days #20 tablet [Rx] Venlafaxine XR (24 HR) [Effexor Xr] 150 mg PO DAILY cap.er.24h 06/29/17 [Rx] Allergies/Adverse Reactions: 3 Allergy/AdvReac Type Severity Reaction Status Date / Time No Known Allergies Allergy Verified 02/14/17 13:39 - Respiratory Orders Smoking Cessation: Smoking cessation has been advised. For more information, call the [place] Tobacco Quit Line at 7-569-FAEX-NOW. - Ancillary Orders May use pressure relief devices daily prn, May go on MALI w/family/respon democrat w /meds at nurse discretion PRN, May have alcoholic beverages, May consult with Dentist, Internet Marketing Strategist, Director Financial Analysis PRN - Advance Directives Code Status: Full Code - Mobility Orders Chair, Ambulate - Rehabiliation Orders Rehab Potential: Good Rehab Orders: Sternal Precautions, ROM Exercises, Evaluation for Physical Therapy, Evaluation for Occupational Therapy - Treatments Skin tear care topically daily PRN per policy, May check for fecal impaction rectally daily PRN, Fleet enema rectally every other day PRN cleansing purposes - Diet Orders No Concentrated Sweets CERTIFICATION: I certify that the transfer of the above named patient to an Extended Care Facility is necessary for the continuing treatment of the diagnosis listed. The above information is true and accurate reflection of patient's current condition. Confidential - Redisclosure prohibited without a patient's written consent.
== END 2017-06-29 10:52 | DRG 235 ==
LOC: SAMDAY 06:20 → ICNU 11:21 → 2NNU 06-25 17:59
PROVIDERS: ADMIT Thoracic Surgery (Cardiothoracic Vascular Surgery); ATTEND Thoracic Surgery (Cardiothoracic Vascular Surgery)

== ENCOUNTER 2017-07-14 14:56 | Inpatient (IN) ==
[2017-07-14] MEDS ORDERED: Ipratropium/Albuterol Neb 3 ML IH ONE (15:06)
--- NOTE | 2017-07-14 15:08 | Emergency Department Note ---
Disposition Clinical Impression: Elevated troponin, Hypoglycemia UTI (urinary tract infection) Qualifiers: Urinary tract infection type: site unspecified Hematuria presence: without hematuria Qualified Code(s): N39.0 - Urinary tract infection, site not specified Chronic kidney disease Qualifiers: Chronic kidney disease stage: unspecified stage Qualified Code(s): N18.9 - Chronic kidney disease, unspecified Disposition: Admitted As Inpatient Condition: Fair Referrals: Analilia Montero CNP [Primary Care Provider] - Forms: ED Satisfaction Letter Time of Disposition: 16:30 Altered Mental Status HPI - General Chief Complaint: ED Altered Mental Status Stated Complaint: Hypoglycemia Time Seen by Provider: 07/14/17 15:04 Source: patient Mode of arrival: ambulatory Limitations: language barrier Nursing Notes Reviewed: Yes Vital Signs Reviewed: Yes - History of Present Illness HPI Narrative: 77-year-old male with a history of diabetes and ACS status post open heart surgery present for evaluation of acute mental status. Patient arrives from [facility]. Nursing staff reported to EMS of the patient's last known well was approximately around noon today. States that they when checked on him around 1:30 and noted the patient was acutely altered. Patient was hypoxic with oxygen saturation a low 80s. Patient is placed on oxygen. Patient is typically does not wear oxygen. Patient blood sugar was checked and was noted to be 60. Patient currently denies any symptoms. No chest pain or short of breath. Patient states that he feels cold however denies any fevers. - Related Data Home Medications Medication Instructions Recorded Confirmed Isosorbide MONOnitrate (24 HR) 30 mg PO DAILY 04/02/16 07/14/17 [Imdur] Clopidogrel [Plavix] 75 mg PO DAILY 11/12/16 07/14/17 Gabapentin [Neurontin] 300 mg PO HS 11/12/16 07/14/17 Tramadol HCl [Ultram] 50 - 100 mg PO TID PRN 11/12/16 07/14/17 Ferrous Sulfate [Iron] 325 mg PO DAILY 02/13/17 07/14/17 Cyanocobalamin (Vitamin B-12) 1,000 mcg SL DAILY 02/14/17 07/14/17 [Vitamin B-12] Trazodone HCl 100 mg PO HS 02/14/17 07/14/17 Glimepiride [Amaryl] 2 mg PO DAILY 06/10/17 07/14/17 Nitroglycerin [Nitrostat] 0.4 mg SL Q5M PRN 06/10/17 07/14/17 Metoprolol XL (24 HR) Succ [Toprol 200 mg PO BID 07/02/17 07/14/17 Xl] Amiodarone [Cordarone] 200 mg PO DAILY 07/14/17 07/14/17 Atorvastatin [Lipitor] 40 mg PO HS 07/14/17 07/14/17 OxyCODONE/APAP 5/325 [Percocet 1 each PO Q6HR PRN 07/14/17 07/14/17 5/325 MG] Previous Rx's Medication Instructions Recorded Amlodipine Besylate 10 mg PO DAILY #0 06/29/17 Buspirone HCl [Buspar] 7.5 mg PO BID PRN tablet 06/29/17 Docusate [Colace] 100 mg PO BID udc 06/29/17 Insulin LISPRO [HumaLOG] 0 units SQ TIDAC vial 06/29/17 Venlafaxine XR (24 HR) [Effexor Xr] 150 mg PO DAILY cap.er.24h 06/29/17 Allergies Allergy/AdvReac Type Severity Reaction Status Date / Time No Known Allergies Allergy Verified 02/14/17 13:39 All systems ED: reviewed and negative except as stated. Constitutional: Reports: chills. Denies: fever Cardiovascular: Denies: chest pain Respiratory: Denies: cough, dyspnea Gastrointestinal: Denies: abdominal pain, nausea, vomiting Musculoskeletal: Reports: neck pain Past Medical History - Past Medical History Source: patient Medical history: Reports: aortic aneurysm, arthritis, coronary artery disease, diabetes, hyperlipidemia, hypertension, renal disease, TIA, other Surgical history: Reports: angioplasty/stent, orthopedic, other, other Psychiatric history: Reports: anxiety, depression - Social History Smoking Status: Former smoker Smokeless Tobacco Status: No Alcohol use: Reports: occasionally Drug use: Reports: none Physical Exam - General Limitations: language barrier General appearance: alert, in no apparent distress - Head Head exam: atraumatic, normocephalic, normal inspection - Eye Eye exam: Present: normal appearance, PERRL, EOMI - ENT ENT exam: normal exam, normal oropharynx, mucous membranes moist - Neck Neck exam: Present: normal inspection, trachea midline - Chest Chest inspection: Present: normal inspection, symmetric chest wall rise, other ( Well-healed midline scar) - Respiratory Respiratory exam: Present: wheezes (expiratory wheeze). Absent: respiratory distress, accessory muscle use - Cardiovascular Cardiovascular exam: Present: regular rate, normal rhythm. Absent: systolic murmur - Abdominal Exam Abdominal exam: Present: soft, Non-Tender - Extremities Exam Extremities exam: Present: normal inspection. Absent: pedal edema - Back Exam Back exam: Present: normal inspection - Neurological Exam Neurological exam: Present: alert, oriented X3, CN II-XII intact - Skin Skin exam: Present: warm, dry, intact, normal color Course Course Narrative: Patient seen and examined. Patient appears to be in no acute distress. Will get extensive cardiopulmonary evaluation including a head CT. Breathing treatment. Patient's family hypoxic requiring oxygen. - Reevaluation(s) Reevaluation #1: seen and examined. Patient appears to be in no acute distress. Patient's resting comfortably. Patient is denying any dark stools or blood in his stool. Patient stool guaiac. Patient does have an elevated troponin. Will ensure the patient does not have any GI bleed prior to initiation of any anticoagulation. Time: 17:13 Reevaluation #2: Patient was noted to have hypoglycemia. Patient was given an amp of D 50 as well as placed on D5. Time: 17:37 Vital Signs Temperature 98.5 F 07/14/17 15:03 Pulse Rate 81 07/14/17 15:03 Respiratory Rate 18 07/14/17 15:03 Blood Pressure 131/88 07/14/17 15:03 O2 Sat by Pulse Oximetry 95 07/14/17 15:03 Temperature 98.5 F 07/14/17 15:03 Pulse Rate 81 07/14/17 17:21 Respiratory Rate 19 07/14/17 17:21 Blood Pressure 135/89 07/14/17 17:21 O2 Sat by Pulse Oximetry 99 07/14/17 17:21 Oxygen Delivery Oxygen Delivery Nasal Cannula Altered Mental Status - MDM Narrative Medical decision making narrative: 77-year-old male transferred evaluation of altered mental status. She was not a stroke alert given the timeframe. Patient does have evidence of urinary tract infection. Patient does have a recent hospitalization with likely catheter placement. Patient was started on antibiotics. Patient does have an elevated troponin with some T-wave inversions in the anterior leads but does not meet STEMI criteria. He was given aspirin. Patient head CT was unremarkable. Patient chest x-ray shows no evidence of pneumonia. Patient did get a stool guaiac and is waiting results prior to any type of anticoagulation or heparinizing. Troponin is actually possibly decreasing from prior evaluations. Patient has a nonfocal exam otherwise. Patient appeared fairly alert and oriented on exam. Patient was found have urinary tract infection. - Lab Data Lab results reviewed: Yes I reviewed the patient's lab results. Result diagrams: 07/14/17 15:41 07/14/17 15:41 Lab Results 07/14/17 07/14/17 07/14/17 Range/Units 15:41 15:41 15:41 WBC 6.8 (4.3-11.1) K/mcL RBC 3.81 L (4.19-5.50) M/mcL Hgb 10.5 L (12.9-16.9) g/dL Hct 33.2 L (37.5-50.1) % MCV 87.1 (83.0-100.0) fL MCH 27.6 L (28.0-33.3) pg MCHC 31.6 (31.6-35.5) g/dL RDW 14.6 H (11.5-14.5) % Plt Count 251 (140-400) K/mcL MPV 9.9 (9.4-12.4) fL Immature Gran % 0.4 (0-4) % Seg Neutrophils % 68.1 % Lymphocytes % 21.0 % Monocytes % 7.5 % Eosinophils % 2.7 % Basophils % 0.3 % Neutrophils # 4.6 (1.6-8.9) K/mcL Lymphocytes # 1.4 (0.6-4.6) K/mcL Monocytes # 0.5 (0.0-1.3) K/mcL Eosinophils # 0.2 (0.0-0.6) K/mcL Basophils # 0.0 (0.0-0.2) K/mcL PT (9.4-12.1) Seconds INR VBG pH (7.32-7.42) pH Units VBG pCO2 (41-51) mmHg VBG pO2 (25-50) mmHg VBG HCO3 (21-27) mEq/L Sodium (136-145) mEq/L Potassium (3.5-5.1) mEq/L Chloride (98-107) mEq/L Carbon Dioxide (23-29) mEq/L BUN (8-23) mg/dL Creatinine (0.70-1.30) mg/dL Est GFR ( Amer) (> 60) Est GFR (Non-Af Amer) (> 60) BUN/Creatinine Ratio (6-26) Glucose (70-105) mg/dL Calculated Osmolality (280-300) Calcium (8.6-10.3) mg/dL Total Bilirubin (0.3-1.0) mg/dL Direct Bilirubin (0.0-0.2) mg/dL Indirect Bilirubin (0.0-1.2) mg/dL AST (13-39) Units/L ALT (7-52) Units/L Alkaline Phosphatase (34-104) Units/L Troponin I (< 0.04) ng/mL Serum Total Protein (6.4-8.9) g/dL Albumin (3.5-5.7) g/dL Globulin (2.4-3.5) g/dL Albumin/Globulin Ratio (1.1-2.2) Ur Specimen Adequacy Mucoid Specimen A Urine Color Yellow (Yellow) Urine Clarity Cloudy A (Clear) Urine pH 7.0 (5.0-8.0) pH Units Ur Specific [place] 1.013 (1.010-1.025) Urine Protein >=300 H (Neg-Trace) mg/dL Urine Glucose (UA) Normal (Normal) mg/dL Urine Ketones Negative (Negative) mg/dL Urine Blood Trace H (Negative) Urine Nitrite Positive A (Negative) Urine Bilirubin Negative (Negative) Urine Urobilinogen Normal (Normal) mg/dL Ur Leukocyte Esterase Moderate H (Negative) Urine Microscopic RBC 0-3 (0-3) per hpf Urine Microscopic WBC 30-50 H (0-3) per hpf Ur Squamous Epith Cells Few (None-Few) per lpf Ur Renal Epithelial Cell Few (None-Few) per hpf Amorphous Sediment Moderate H (Few) Urine Bacteria Many H (None-Few) per hpf Ur Culture Indicated? YES A (NO) Urine Opiates Screen Negative (Ajgvwq=282) ng/mL Ur Barbiturates Screen Negative (Hfxqeq=702) ng/mL Ur Phencyclidine Scrn Negative (Cutoff=25) ng/mL Ur Amphetamines Screen Negative (Tvabag=8760) ng/mL U Benzodiazepines Scrn Negative (Cvtfdv=059) ng/mL Urine Cocaine Screen Negative (Cutoff= 300) ng/mL U Marijuana (THC) Screen Negative (Cutoff = 50) ng/mL Ethyl Alcohol (0-10) mg/dL 07/14/17 07/14/17 07/14/17 Range/Units 15:41 15:41 15:41 WBC (4.3-11.1) K/mcL RBC (4.19-5.50) M/mcL Hgb (12.9-16.9) g/dL Hct (37.5-50.1) % MCV (83.0-100.0) fL MCH (28.0-33.3) pg MCHC (31.6-35.5) g/dL RDW (11.5-14.5) % Plt Count (140-400) K/mcL MPV (9.4-12.4) fL Immature Gran % (0-4) % Seg Neutrophils % % Lymphocytes % % Monocytes % % Eosinophils % % Basophils % % Neutrophils # (1.6-8.9) K/mcL Lymphocytes # (0.6-4.6) K/mcL Monocytes # (0.0-1.3) K/mcL Eosinophils # (0.0-0.6) K/mcL Basophils # (0.0-0.2) K/mcL PT 13.7 H (9.4-12.1) Seconds INR 1.3 VBG pH (7.32-7.42) pH Units VBG pCO2 (41-51) mmHg VBG pO2 (25-50) mmHg VBG HCO3 (21-27) mEq/L Sodium 137 (136-145) mEq/L Potassium 3.6 (3.5-5.1) mEq/L Chloride 105 (98-107) mEq/L Carbon Dioxide 24 (23-29) mEq/L BUN 18 (8-23) mg/dL Creatinine 2.03 H (0.70-1.30) mg/dL Est GFR ( Amer) 39 L (> 60) Est GFR (Non-Af Amer) 32 L (> 60) BUN/Creatinine Ratio 9 (6-26) Glucose 75 (70-105) mg/dL Calculated Osmolality 285 (280-300) Calcium 7.8 L (8.6-10.3) mg/dL Total Bilirubin 0.4 (0.3-1.0) mg/dL Direct Bilirubin 0.1 (0.0-0.2) mg/dL Indirect Bilirubin 0.3 (0.0-1.2) mg/dL AST 87 H (13-39) Units/L ALT 55 H (7-52) Units/L Alkaline Phosphatase 212 H (34-104) Units/L Troponin I 0.04 H* (< 0.04) ng/mL Serum Total Protein 6.6 (6.4-8.9) g/dL Albumin 2.5 L (3.5-5.7) g/dL Globulin 4.1 H (2.4-3.5) g/dL Albumin/Globulin Ratio 0.6 L (1.1-2.2) Ur Specimen Adequacy Urine Color (Yellow) Urine Clarity (Clear) Urine pH (5.0-8.0) pH Units Ur Specific [place] (1.010-1.025) Urine Protein (Neg-Trace) mg/dL Urine Glucose (UA) (Normal) mg/dL Urine Ketones (Negative) mg/dL Urine Blood (Negative) Urine Nitrite (Negative) Urine Bilirubin (Negative) Urine Urobilinogen (Normal) mg/dL Ur Leukocyte Esterase (Negative) Urine Microscopic RBC (0-3) per hpf Urine Microscopic WBC (0-3) per hpf Ur Squamous Epith Cells (None-Few) per lpf Ur Renal Epithelial Cell (None-Few) per hpf Amorphous Sediment (Few) Urine Bacteria (None-Few) per hpf Ur Culture Indicated? (NO) Urine Opiates Screen (Oluloc=861) ng/mL Ur Barbiturates Screen (Xzprcr=526) ng/mL Ur Phencyclidine Scrn (Cutoff=25) ng/mL Ur Amphetamines Screen (Nxkyxq=3339) ng/mL U Benzodiazepines Scrn (Zyomxf=066) ng/mL Urine Cocaine Screen (Cutoff= 300) ng/mL U Marijuana (THC) Screen (Cutoff = 50) ng/mL Ethyl Alcohol < 10 (0-10) mg/dL 07/14/17 Range/Units 15:53 WBC (4.3-11.1) K/mcL RBC (4.19-5.50) M/mcL Hgb (12.9-16.9) g/dL Hct (37.5-50.1) % MCV (83.0-100.0) fL MCH (28.0-33.3) pg MCHC (31.6-35.5) g/dL RDW (11.5-14.5) % Plt Count (140-400) K/mcL MPV (9.4-12.4) fL Immature Gran % (0-4) % Seg Neutrophils % % Lymphocytes % % Monocytes % % Eosinophils % % Basophils % % Neutrophils # (1.6-8.9) K/mcL Lymphocytes # (0.6-4.6) K/mcL Monocytes # (0.0-1.3) K/mcL Eosinophils # (0.0-0.6) K/mcL Basophils # (0.0-0.2) K/mcL PT (9.4-12.1) Seconds INR VBG pH 7.31 L (7.32-7.42) pH Units VBG pCO2 49 (41-51) mmHg VBG pO2 33 (25-50) mmHg VBG HCO3 25 (21-27) mEq/L Sodium (136-145) mEq/L Potassium (3.5-5.1) mEq/L Chloride (98-107) mEq/L Carbon Dioxide (23-29) mEq/L BUN (8-23) mg/dL Creatinine (0.70-1.30) mg/dL Est GFR ( Amer) (> 60) Est GFR (Non-Af Amer) (> 60) BUN/Creatinine Ratio (6-26) Glucose (70-105) mg/dL Calculated Osmolality (280-300) Calcium (8.6-10.3) mg/dL Total Bilirubin (0.3-1.0) mg/dL Direct Bilirubin (0.0-0.2) mg/dL Indirect Bilirubin (0.0-1.2) mg/dL AST (13-39) Units/L ALT (7-52) Units/L Alkaline Phosphatase (34-104) Units/L Troponin I (< 0.04) ng/mL Serum Total Protein (6.4-8.9) g/dL Albumin (3.5-5.7) g/dL Globulin (2.4-3.5) g/dL Albumin/Globulin Ratio (1.1-2.2) Ur Specimen Adequacy Urine Color (Yellow) Urine Clarity (Clear) Urine pH (5.0-8.0) pH Units Ur Specific [place] (1.010-1.025) Urine Protein (Neg-Trace) mg/dL Urine Glucose (UA) (Normal) mg/dL Urine Ketones (Negative) mg/dL Urine Blood (Negative) Urine Nitrite (Negative) Urine Bilirubin (Negative) Urine Urobilinogen (Normal) mg/dL Ur Leukocyte Esterase (Negative) Urine Microscopic RBC (0-3) per hpf Urine Microscopic WBC (0-3) per hpf Ur Squamous Epith Cells (None-Few) per lpf Ur Renal Epithelial Cell (None-Few) per hpf Amorphous Sediment (Few) Urine Bacteria (None-Few) per hpf Ur Culture Indicated? (NO) Urine Opiates Screen (Ekkqyx=950) ng/mL Ur Barbiturates Screen (Rjaldk=311) ng/mL Ur Phencyclidine Scrn (Cutoff=25) ng/mL Ur Amphetamines Screen (Sljpvj=8091) ng/mL U Benzodiazepines Scrn (Mkplkf=132) ng/mL Urine Cocaine Screen (Cutoff= 300) ng/mL U Marijuana (THC) Screen (Cutoff = 50) ng/mL Ethyl Alcohol (0-10) mg/dL - Radiology Data Radiology results reviewed: Yes I reviewed the patient's radiology results. - EKG Data EKG attestation: Yes I reviewed and interpreted this EKG. EKG shows normal: sinus rhythm Rate: normal Rhythm: NSR Q waves: II, III T wave inversions: v4, v5, v6 When compared to previous EKG there are: changes noted Interpretation: no acute changes, nonspecific ST-T wave changes TPA Checklist - LKW: 3-4.5 hrs Add. Warnings/Precautions Patient/family understanding: The patient/family members have been counseled and understood the risk, benefit , and alternatives of treatment. S.B.A.R. - S.B.A.RKamala Situation: Demographics Background: Presenting Complaint Assessment: Vital Signs, Course and respsone to treatment, Patient/Family Expectation Recommendation: Barrier(s) to disposition, Recommendation based on pending studies, treatments, or consults S.B.A.RKamala Report Given to: Justice [place] Repor Time: 17:35 Attestation Statement - Attestation Attestation: I examined this patient and my medical decision-making was reviewed with the Resident Physician. I agree with the documented findings, disposition and treatment plan as described except to the extent set forth below. Patient in the ED with altered mental status. Not eating. Week. Recent open heart surgery. Sent from the assisted. Awake and alert on our eval. Nose clear. Plan. Altered mental status workup. . Patient with UTI. Further workup pending. Starting antibiotic.
[2017-07-14] MEDS ORDERED: *HR* FentaNYL (PF) 100 MCG/2 ML VIAL IVP ONE (15:27)
[2017-07-14] MEDS ORDERED: *HR* FentaNYL (PF) 100 MCG/2 ML VIAL ONE (15:46)
[2017-07-14 15:55] LABS: Basophils % 0.3 %; Eosinophils % 2.7 %; Hematocrit 33.2 % (37.5-50.1); Hemoglobin 10.5 g/dL (12.9-16.9); Immature Granulocytes % 0.4 % (0-4); Mean Corpuscular HGB Conc 31.6 g/dL (31.6-35.5); Mean Corpuscular Hemoglobin 27.6 pg (28.0-33.3); Mean Corpuscular Volume 87.1 fL (83.0-100.0); Mean Platelet Volume 9.9 fL (9.4-12.4); Monocytes % 7.5 %; Platelet Count 251 K/mcL (140-400); Red Blood Count 3.81 M/mcL (4.19-5.50); Red Cell Distribution Width 14.6 % (11.5-14.5); Segmented Neutrophils % 68.1 %
[2017-07-14 15:56] LABS: Eosinophils # 0.2 K/mcL (0.0-0.6); Lymphocytes # 1.4 K/mcL (0.6-4.6); Monocytes # 0.5 K/mcL (0.0-1.3); Neutrophils # 4.6 K/mcL (1.6-8.9)
[2017-07-14 15:56] LABS: VBG HCO3 25 mEq/L (21-27); VBG PCO2 49 mmHg (41-51); VBG PH 7.31 pH Units (7.32-7.42); VBG PO2 33 mmHg (25-50)
[2017-07-14 16:00] LABS: Amphetamine Screen,Urine Negative ng/mL (Cutoff=1000); Barbiturate Screen,Urine Negative ng/mL (Cutoff=200); Benzodiazepines Screen,Urine Negative ng/mL (Cutoff=200); Bilirubin,Urine Negative (Negative); Blood,Urine Trace (Negative); Cannabinoid Screen,Urine Negative ng/mL (Cutoff = 50); Clarity,Urine Cloudy (Clear); Cocaine Screen,Urine Negative ng/mL (Cutoff= 300); Color,Urine Yellow (Yellow); Glucose,Urine (UA) Normal (Normal); INR 1.3; Ketones,Urine Negative (Negative); Leukocyte Esterase,Urine Moderate (Negative); Nitrite,Urine Positive (Negative); Opiate Screen,Urine Negative ng/mL (Cutoff=300); Phencyclidine Screen,Urine Negative ng/mL (Cutoff=25); Protein,Urine >=300 mg/dL (Neg-Trace); Prothrombin Time 13.7 Seconds (9.4-12.1); Specific Gravity,Urine 1.013 (1.010-1.025); Urine Specimen Comments Mucoid Specimen; Urobilinogen,Urine Normal (Normal)
[2017-07-14 16:02] LABS: Bacteria,Urine Many per hpf (None-Few); RBC,Urine 0-3 per hpf (0-3); Squamous Epithelial Cell,Urine Few per lpf (None-Few); WBC,Urine 30-50 per hpf (0-3)
[2017-07-14 16:03] LABS: Amorphous Sediment,Urine Moderate (Few)
[2017-07-14 16:04] LABS: Renal Epithelial Cells,Urine Few per hpf (None-Few)
[2017-07-14 16:11] LABS: Ethanol < 10 mg/dL (0-10)
[2017-07-14 16:17] LABS: Alanine Aminotransferase 55 Units/L (7-52); Albumin 2.5 g/dL (3.5-5.7); Albumin/Globulin Ratio 0.6 (1.1-2.2); Alkaline Phosphatase 212 Units/L (34-104); Aspartate Amino Transferase 87 Units/L (13-39); BUN/Creatinine Ratio 9 (6-26); Bilirubin,Direct 0.1 mg/dL (0.0-0.2); Bilirubin,Indirect 0.3 mg/dL (0.0-1.2); Bilirubin,Total 0.4 mg/dL (0.3-1.0); Blood Urea Nitrogen 18 mg/dL (8-23); Calcium 7.8 mg/dL (8.6-10.3); Carbon Dioxide 24 mEq/L (23-29); Chloride 105 mEq/L (98-107); Globulin 4.1 g/dL (2.4-3.5); Glucose 75 mg/dL (70-105); Osmolality,Calculated 285 (280-300); Potassium 3.6 mEq/L (3.5-5.1); Sodium 137 mEq/L (136-145); Total Protein 6.6 g/dL (6.4-8.9); eGFR For African Americans 39 (> 60); eGFR For Non-African Americans 32 (> 60)
[2017-07-14] MEDS ORDERED: Aspirin 81 MG TAB.CHEW PO ONE (16:28)
[2017-07-14] MEDS ORDERED: cefTRIAXone 1,000 MG in Water for inj. (sterile) 20 ML 10 ML IVP ONE (16:29)
[2017-07-14] MEDS ORDERED: *HR* LORazepam 2 MG/ML VIAL IVP ONE (17:24)
[2017-07-14] MEDS ORDERED: *HR* Dextrose 50 % in Water (Syg) 50 ML SYRINGE ONE (17:37)
[2017-07-14] MEDS ORDERED: D5% in 0.45% NACL 1,000 ML IVC SCH (17:45)
[2017-07-14] MEDS: *HR* Dextrose 50 % in Water (Syg) 50 ML SYRINGE IVP ONE (17:48)
[2017-07-14] MEDS ORDERED: 0.9 % Sodium Chloride 1,000 ML IVC SCH (20:30)
[2017-07-14] MEDS ORDERED: Naloxone 0.4 MG/ML INJ IVP PRN (20:30)
[2017-07-14] MEDS ORDERED: D5% in Water 1,000 ML IVC PRN (20:36)
[2017-07-14] MEDS ORDERED: Dextrose Gel 15 GM/37.5 ML TUBE PO PRN (20:36)
[2017-07-14] MEDS: Metoprolol XL (24 HR) Succ 50 MG TAB.ER.24H PO SCH (22:34)
[2017-07-14] MEDS: Pantoprazole 40 MG VIAL IVP SCH (22:35)
[2017-07-14] MEDS: traZODone 50 MG TABLET PO SCH (22:36)
--- NOTE | 2017-07-14 22:56 | Internal Med History&Physical ---
Date of Encounter: 07/14/17 Time of Encounter: 20:00 Assessment and Plan (1) Acute encephalopathy Current visit: Yes Status: Acute Pt has acute AMS, with hypoglycemia. AMS improved after Glu supplement. CT head unremarkable. Physical exam shows no focal neuro deficit. - Consider hypoglycemia caused AMS. - Cont closely monitor Glu level. (2) Chronic kidney disease Current visit: Yes Status: Acute Cr level stable at baseline. Qualifiers: Chronic kidney disease stage: stage 3 (moderate) Qualified Code(s): N18.3 - Chronic kidney disease, stage 3 (moderate) (3) Elevated troponin Current visit: Yes Status: Acute Etiology is undetermined. Pt had recent heart surgery. - Cont cardiac monitoring. - Track 3 sets of troponin. (4) Hypoglycemia Current visit: Yes Status: Acute Will cont monitor Glu level. Hold DM meds at this point. (5) UTI (urinary tract infection) Current visit: Yes Status: Acute Cont rocephin iv, f/u urine culture. Qualifiers: Urinary tract infection type: site unspecified Hematuria presence: without hematuria Qualified Code(s): N39.0 - Urinary tract infection, site not specified (6) DVT prophylaxis Current visit: No Status: Acute EPCD, no AC b/o positive FOBT. (7) CAD (coronary artery disease) Current visit: No Status: Chronic Denies chest pain. Will cont home med but hold antiplatelet temporarily b/o positive FOBT. Qualifiers: Coronary Disease-Associated Artery/Lesion type: [place] artery [place] vs. transplanted heart: [place] heart Associated angina: with unstable angina Qualified Code(s): I25.110 - Atherosclerotic heart disease of [place] coronary artery with unstable angina pectoris (8) Diabetes Current visit: No Status: Chronic Pt has hypoglycemia. Will hold DM meds now and cont closely monitor Glu level. Qualifiers: Diabetes mellitus type: type 2 Diabetes mellitus complication status: with kidney complications Diabetes mellitus complication detail: with microalbuminuria Diabetes mellitus intermodal dispatcher insulin use: without senior care use Qualified Code(s): E11.29 - Type 2 diabetes mellitus with other diabetic kidney complication; R80.9 - Proteinuria, unspecified (9) HTN (hypertension) Current visit: No Status: Chronic Cont home meds. Qualifiers: Hypertension type: essential hypertension Qualified Code(s): I10 - Essential (primary) hypertension (10) GI bleed Current visit: Yes Status: Acute Pt has positive FOBT in ER, H/H stable at baseline, vitals stable. - Needs to r/o GI bleed. - Keep NPO, IVF - Pantoprazole 40mg iv q12hrs. - Consult GI Qualifiers: GI bleed type/associated pathology: unspecified gastrointestinal hemorrhage type Qualified Code(s): K92.2 - Gastrointestinal hemorrhage, unspecified (11) Diarrhea Current visit: Yes Status: Acute Pt has been hospitalized recently. Need to r/o C diff. Will check GI penal. Qualifiers: Diarrhea type: unspecified type Qualified Code(s): R19.7 - Diarrhea, unspecified Internal Medicine - H&P: HPI Chief complaint: Altered mental status Admitted From: Long-term Nursing Facility Plans for Post Hospital Care: Transfer [facility] History of present illness: Mr. Esquivel is a 77 year old male with Hx of CAD s/p CABG, DM, HTN, sent to ER from SNF for acute AMS. Pt was found AMS today and he was also found hypoglycemia with Glu at 60. He was given Glu treatment in SNF and he feels better and AMS has improved. Pt denies fever. Has mild SOB. denies chest pain, nausea, or vomiting. Pt states he has diarrhea from today. He is on chronic [place] catheter. Past Med Surg Social Fam HX - Past Medical History Medical history: aortic aneurysm, arthritis, coronary artery disease, diabetes, hyperlipidemia, hypertension, renal disease, TIA, other Psychiatric history: anxiety, depression - Past Surgical History Surgical History: angioplasty/stent, coronary bypass (CABG), orthopedic, other, other - Social History Smoking Status: Former smoker Smokeless Tobacco Status: No Alcohol use: occasionally Drug use: none - Family History Father Family Member Ethnicity: Non- Living Status: Hx Family Cardiac Disorders: Yes (DC, CAD, HTN) Mother Family Member Ethnicity: Non- Living Status: Hx Family Cancer: Yes (Breast) Brother Family Member Ethnicity: Non- Living Status: Still Living Sister Family Member Ethnicity: Non- Living Status: Still Living Hx Family Endocrine Disorder: Yes (DM) Internal Medicine - H&P: Meds Isosorbide MONOnitrate (24 HR) [Imdur] 30 mg PO DAILY 04/02/16 [History] Clopidogrel [Plavix] 75 mg PO DAILY 11/12/16 [History] Gabapentin [Neurontin] 300 mg PO HS 11/12/16 [History] Tramadol HCl [Ultram] 50 - 100 mg PO TID PRN 11/12/16 [History] Ferrous Sulfate [Iron] 325 mg PO DAILY 02/13/17 [History] Cyanocobalamin (Vitamin B-12) [Vitamin B-12] 1,000 mcg SL DAILY 02/14/17 [ History] Trazodone HCl 100 mg PO HS 02/14/17 [History] Glimepiride [Amaryl] 2 mg PO DAILY 06/10/17 [History] Nitroglycerin [Nitrostat] 0.4 mg SL Q5M PRN 06/10/17 [History] Amlodipine Besylate 10 mg PO DAILY #0 06/29/17 [Rx] Buspirone HCl [Buspar] 7.5 mg PO BID PRN tablet 06/29/17 [Rx] Docusate [Colace] 100 mg PO BID udc 06/29/17 [Rx] Insulin LISPRO [HumaLOG] 0 units SQ TIDAC vial 06/29/17 [Rx] Venlafaxine XR (24 HR) [Effexor Xr] 150 mg PO DAILY cap.er.24h 06/29/17 [Rx] Metoprolol XL (24 HR) Succ [Toprol Xl] 200 mg PO BID 07/02/17 [History] Amiodarone [Cordarone] 200 mg PO DAILY 07/14/17 [History] Atorvastatin [Lipitor] 40 mg PO HS 07/14/17 [History] OxyCODONE/APAP 5/325 [Percocet 5/325 MG] 1 each PO Q6HR PRN 07/14/17 [History] 3 Allergy/AdvReac Type Severity Reaction Status Date / Time No Known Allergies Allergy Verified 02/14/17 13:39 All Systems PM: A 10-system review of systems was performed and is negative for pertinent findings except as documented above in the HPI. - Constitutional Vitals: Temp Pulse Resp BP Pulse Ox 99.1 F 82 18 138/86 99 07/14/17 20:35 07/14/17 20:35 07/14/17 20:35 07/14/17 20:35 07/14/17 17:21 General appearance: Present: A&O X 3, no acute distress, answers questions appropriately Internal Med - H&P Results - Labs CBC & Chem 7: 07/14/17 15:41 07/14/17 15:41 Labs: Cardiac Enzymes 07/14/17 Range/Units 20:54 Troponin I 0.04 H* (< 0.04) ng/mL - EKG Data -: EKG Interpreted by Myself EKG shows normal: sinus rhythm Rate: normal - VTE Documentation of Mechanical Device: Intermittent pneumatic compression device
[2017-07-15] MEDS: *HR* Dextrose 50 % in Water (Syg) 50 ML SYRINGE IVP PRN ×4 (00:33→09:52)
[2017-07-15 01:08] LABS: C.difficile Toxin A/B by PCR See reflex test (Not detect); Campylobacter by PCR Not detected (Not detect)
[2017-07-15 01:09] LABS: Adenovirus F 40/41 PCR Not detected (Not detect); Astrovirus PCR Not detected (Not detect); Cryptosporidium by PCR Not detected (Not detect); Cyclospora cayetanensis PCR Not detected (Not detect); E. coli O157 by PCR Not detected (Not detect); Entamoeba histolytica PCR Not detected (Not detect); Enteroaggregative E.coli(EAEC) Not detected (Not detect); Enteropathogenic E.coli(EPEC) Not detected (Not detect); Enterotoxigenic E.coli (ETEC) Not detected (Not detect); Giardia lamblia PCR Not detected (Not detect); Norovirus GI/GII PCR Not detected (Not detect); Plesiomonas shigelloides PCR Not detected (Not detect); Rotavirus A PCR Not detected (Not detect); Salmonella PCR Not detected (Not detect); Sapovirus PCR Not detected (Not detect); Shig/EnteroinvasiveE coli EIEC Not detected (Not detect); Shigalike tox-prod E coli STEC Not detected (Not detect); Vibrio PCR Not detected (Not detect); Vibrio cholerae PCR Not detected (Not detect); Yersinia enterocolitica PCR Not detected (Not detect)
[2017-07-15] MEDS ORDERED: D5% in 0.45% NACL 1,000 ML IVC SCH (02:15)
[2017-07-15 03:05] LABS: Basophils % 0.2 %; Eosinophils # 0.2 K/mcL (0.0-0.6); Eosinophils % 3.6 %; Hematocrit 28.7 % (37.5-50.1); Hemoglobin 9.2 g/dL (12.9-16.9); Immature Granulocytes % 0.3 % (0-4); Lymphocytes # 1.9 K/mcL (0.6-4.6); Lymphocytes % 28.7 %; Mean Corpuscular HGB Conc 32.1 g/dL (31.6-35.5); Mean Corpuscular Hemoglobin 27.6 pg (28.0-33.3); Mean Corpuscular Volume 86.2 fL (83.0-100.0); Monocytes # 0.6 K/mcL (0.0-1.3); Monocytes % 9.2 %; Neutrophils # 3.9 K/mcL (1.6-8.9); Platelet Count 194 K/mcL (140-400); Red Blood Count 3.33 M/mcL (4.19-5.50); Red Cell Distribution Width 14.3 % (11.5-14.5)
[2017-07-15] MEDS: *HR* Dextrose 50 % in Water (Syg) 50 ML SYRINGE IVP ONE (03:32)
[2017-07-15 03:33] LABS: Calcium 7.5 mg/dL (8.6-10.3); Magnesium 1.8 mg/dL (1.6-2.6); Potassium 3.7 mEq/L (3.5-5.1)
[2017-07-15] MEDS: metroNIDAZOLE 500 MG TABLET PO SCH ×4 (03:38→20:28)
[2017-07-15] MEDS: Pantoprazole 40 MG VIAL IVP SCH ×2 (05:49→17:36)
[2017-07-15] MEDS: Dextrose Gel 15 GM/37.5 ML TUBE PO PRN ×3 (05:49→16:24)
--- NOTE | 2017-07-15 07:56 | Internal Med Progress Note ---
Date of Encounter: 07/15/17 Time of Encounter: 07:54 - Assessment and plan (1) Hypoglycemia Current Visit: Yes Status: Acute Assessment and plan: Check hemoglobin A1c. The patient is on glimepiride in the outpatient setting. This may need to be stopped at discharge. Continue with D5 infusion. Continue with Accu-Cheks. (2) C. difficile colitis Current Visit: Yes Status: Acute Assessment and plan: Continue with metronidazole. Day 2 (3) Acute encephalopathy Current Visit: Yes Status: Acute Assessment and plan: Likely metabolic as well as infectious due to UTI and C. difficile colitis. We will fix the underlying cause. Improving. CT head unremarkable.. (4) Chronic kidney disease Current Visit: Yes Status: Acute Assessment and plan: Around baseline. Continue to monitor Qualifiers: Chronic kidney disease stage: stage 3 (moderate) Qualified Code(s): N18.3 - Chronic kidney disease, stage 3 (moderate) (5) Elevated troponin Current Visit: Yes Status: Acute Assessment and plan: Likely type II NSTEMI with troponin leak secondary to kidney disease. No chest pain. Troponins are consistently at 0.04. Keep on telemetry (6) GI bleed Current Visit: Yes Status: Acute Assessment and plan: Continue with Protonix dose for now. GI is consulted. Hemoglobin stable. Seems to be baseline for now. Qualifiers: GI bleed type/associated pathology: unspecified gastrointestinal hemorrhage type Qualified Code(s): K92.2 - Gastrointestinal hemorrhage, unspecified (7) UTI (urinary tract infection) Current Visit: Yes Status: Acute Assessment and plan: Continue ceftriaxone. Follow cultures. Qualifiers: Urinary tract infection type: site unspecified Hematuria presence: without hematuria Qualified Code(s): N39.0 - Urinary tract infection, site not specified (8) CAD (coronary artery disease) Current Visit: No Status: Chronic Assessment and plan: Status post CABG 3 earlier this year. Continue metoprolol. Resume statin. Hold Plavix given low GI bleed.. Qualifiers: Coronary Disease-Associated Artery/Lesion type: [place] artery [place] vs. transplanted heart: [place] heart Associated angina: with unstable angina Qualified Code(s): I25.110 - Atherosclerotic heart disease of [place] coronary artery with unstable angina pectoris (9) HTN (hypertension) Current Visit: No Status: Chronic Assessment and plan: Continue metoprolol and Norvasc. Blood pressure stable. Qualifiers: Hypertension type: essential hypertension Qualified Code(s): I10 - Essential (primary) hypertension (10) DVT prophylaxis Current Visit: No Status: Acute Assessment and plan: SCDs - Subjective Interval history: Patient was seen and examined. Had multiple episoded of hypoglycemia overnight which was his reason for admission as well. AMS is improving with better glycemic control. Patient is also found to have C. difficile colitis and has been started on metronidazole. Also being treated for urinary tract infection as well as a positive fecal occult blood testing for which she has consulted. Hemoglobin is stable. The patient is afebrile. - Constitutional Vitals: Temp Pulse Resp BP Pulse Ox 98.0 F 77 16 117/72 100 07/15/17 07:02 07/15/17 07:02 07/15/17 07:02 07/15/17 07:02 07/15/17 07:02 General appearance: Present: A&O X 3, no acute distress, answers questions appropriately Exam: GEN: NAD CVS: RRR. S1, S2, No m/r/g RESP: CTAB ABD: Soft, NT, ND, +BS EXT: No edema. 2+ DP, No rashes NEURO: Nonfocal Internal Medicine: Result - Labs CBC & Chem 7: 07/15/17 02:44 07/15/17 02:44 Labs: Short CBC 07/15/17 Range/Units 02:44 WBC 6.7 (4.3-11.1) K/mcL Hgb 9.2 L (12.9-16.9) g/dL Hct 28.7 L (37.5-50.1) % Plt Count 194 (140-400) K/mcL Neutrophils # 3.9 (1.6-8.9) K/mcL BMP 07/15/17 02:44 Sodium 139 Potassium 3.7 Chloride 108 H Carbon Dioxide 25 BUN 17 Creatinine 1.98 H Glucose 35 L* Calcium 7.5 L Cardiac Enzymes 07/14/17 07/15/17 Range/Units 20:54 02:44 Troponin I 0.04 H* 0.04 H* (< 0.04) ng/mL - ABG Interpretation ABG results: PT/INR, D-dimer PT 13.7 Seconds (9.4-12.1) H 07/14/17 15:41 - VTE Documentation of Mechanical Device: Intermittent pneumatic compression device Consult Discharge Plan - Plan Referrals: Analilia Montero, NÉSTOR [Primary Care Provider] -
[2017-07-15 08:30] LABS: Hemoglobin A1C 5.4 %
[2017-07-15] MEDS: *HR* OxyCODONE/APAP 5/325 TABLET PO PRN ×3 (09:50→23:13)
[2017-07-15] MEDS: Venlafaxine XR (24 HR) 150 MG CAP.ER.24H PO SCH (09:50)
[2017-07-15] MEDS: Metoprolol XL (24 HR) Succ 50 MG TAB.ER.24H PO SCH ×2 (09:50→20:29)
[2017-07-15] MEDS: Isosorbide MONOnitrate (24 HR) 30 MG TAB.ER.24H PO SCH (09:51)
[2017-07-15] MEDS: Cyanocobalamin (B-12) 1,000 MCG TABLET PO SCH (09:51)
[2017-07-15] MEDS: *HR* Amiodarone 200 MG TABLET PO SCH (09:51)
[2017-07-15] MEDS: amLODIPine 5 MG TABLET PO SCH (09:51)
[2017-07-15] MEDS: D10% in Water 500 ML IVC SCH ×3 (10:27→20:29)
[2017-07-15] MEDS: Insulin LISPRO 300 UNITS/3 ML VIAL SQ SCH ×3 (11:02→21:45)
--- NOTE | 2017-07-15 13:12 | Gastroenterology Consult Note ---
<Isha Ansari - Last Filed: 07/15/17 13:08> Date of Encounter: 07/15/17 Time of Encounter: 11:30 - Assessment and plan (1) Anemia Current Visit: Yes Status: Acute Assessment and plan: Pt denies any active bleeding, Hgb 9.2, has been started on protonix bid. He is status post CABG 06/17 and is on asa and plavix. Qualifiers: Anemia type: unspecified type Qualified Code(s): D64.9 - Anemia, unspecified (2) C. difficile colitis Current Visit: Yes Status: Acute Assessment and plan: Stool test positive has been started on flagyl. - Time Spent With Patient Total time spent is greater than 50% in coordination of care (as documented) at patient's floor/unit and/or counseling patient: GI History of Present Illness - Data of Consult Patient: known to practice within the last 3 years Consult date: 07/15/17 Requesting Physician: Lorena Mcmahon CNP - Consult Narrative Reason for consult: anemia History of present illness: Mr. Esquivel is a 77 year old male with Hx of CAD s/p CABG 06/17, DM, HTN, sent to ER from SNF for acute alterted mental status. He reports "passed out from sugar being low". He reports diarrhea for the past 2 days, 3 BM this am. He denies any bloody or tarry stools. He denies abdominal pain, nausea or vomiting. Pt denies fever. Has mild SOB. Pt states he has diarrhea from today. Stool was positive for occult blood. C-diff was positive and was started on flagyl. He is on chronic [place] catheter. Hgb is 9.2. Recent CABG x 4 vessels and has been on asa and plavix which have been held at this time. Colonoscopy: 09/04 Dr Presley EGD: denies NSAIDS/ASA: asa Anticoagulants: plavix Past Med Surg Social Fam HX - Past Medical History Medical history: aortic aneurysm, arthritis, coronary artery disease, diabetes, hyperlipidemia, hypertension, renal disease, TIA, other Psychiatric history: anxiety, depression - Past Surgical History Surgical History: angioplasty/stent, coronary bypass (CABG), orthopedic, other, other - Social History Smoking Status: Former smoker Smokeless Tobacco Status: No Alcohol use: occasionally Drug use: none - Family History Father Family Member Ethnicity: Non- Living Status: Hx Family Cardiac Disorders: Yes ([place], CAD, HTN) Mother Family Member Ethnicity: Non- Living Status: Hx Family Cancer: Yes (Breast) Brother Family Member Ethnicity: Non- Living Status: Still Living Sister Family Member Ethnicity: Non- Living Status: Still Living Hx Family Endocrine Disorder: Yes (DM) Review of Systems: GI: as per [place] GENERAL: denies feveror chills EYES: denies yellow discoloration ENT: denies pain with swallowing or difficulty swallowing CARDIO: denies chest pain, palpitations, soreness to incision site, incision healing well and well approximated RESP: Shortness of breath with exertion : denies change in color of urine NEURO: weakness HEME: Denies any bruising MS: chronic joint pain and back pain. DERM: denies rash or itching PSYCH: Denies history of anxiety or depression - Constitutional Vitals: Temp Pulse Resp BP Pulse Ox 98.2 F 74 16 122/68 100 07/15/17 11:38 07/15/17 11:38 07/15/17 11:38 07/15/17 11:38 07/15/17 11:38 Exam: CONSTITUTIONAL:~alert, no acute distress.~HEAD:~normocephalic.~EYES:~no jaundice.~NECK:~no obvious swelling.~HEART:~ incision well healed, regular rate and rhythm, no murmurs.~LUNGS:~bilateral fair air entry.~ABDOMEN:~non distended , soft, non tander, no masses pulpable, no organomegaly.~RECTAL EXAM:~Deferred.~ EXTREMITIES:~no clubbing, cyanosis, trace edema.~SKIN:~no stigmata of chronic liver disease.~NEUROLOGIC:~no obvious focal defect.~~~~ Results - Labs CBC & Chem 7: 07/15/17 02:44 07/15/17 02:44 Labs: Last Result Calcium 7.5 mg/dL (8.6-10.3) L 07/15/17 02:44 Troponin I 0.04 ng/mL (< 0.04) H* 07/15/17 02:44 Stool Occult Blood Positive (Negative) A 07/14/17 17:20 Urine Opiates Screen Negative ng/mL ([id number]) 07/14/17 15:41 Entire Visit Hgb 9.2 g/dL (12.9-16.9) L 07/15/17 02:44 Hct 28.7 % (37.5-50.1) L 07/15/17 02:44 PT 13.7 Seconds (9.4-12.1) H 07/14/17 15:41 Total Bilirubin 0.4 mg/dL (0.3-1.0) 07/14/17 15:41 AST 87 Units/L (13-39) H 07/14/17 15:41 ALT 55 Units/L (7-52) H 07/14/17 15:41 - ABG ABG results: PT/INR, D-dimer PT 13.7 Seconds (9.4-12.1) H 07/14/17 15:41 Consult Discharge Plan - Plan Referrals: Analilia Montero CNP [Primary Care Provider] - (Patient will follow up with ECF PCP-Signature) <Seven Solitario - Last Filed: 07/15/17 21:03> Date of Encounter: 07/15/17 Time of Encounter: 17:00 - Time Spent With Patient Total time spent is greater than 50% in coordination of care (as documented) at patient's floor/unit and/or counseling patient: GI History of Present Illness - Data of Consult Requesting Physician: Lorena Mcmahon CNP - Consult Narrative History of present illness: Mr. Esquivel is a 77 year old male - Constitutional Vitals: Temp Pulse Resp BP Pulse Ox 99.1 F 76 18 118/71 96 07/15/17 20:10 07/15/17 20:10 07/15/17 20:10 07/15/17 20:10 07/15/17 20:10 Results - Labs CBC & Chem 7: 07/15/17 02:44 07/15/17 02:44 Labs: Last Result Calcium 7.5 mg/dL (8.6-10.3) L 07/15/17 02:44 Troponin I 0.04 ng/mL (< 0.04) H* 07/15/17 02:44 Stool Occult Blood Positive (Negative) A 07/14/17 17:20 Urine Opiates Screen Negative ng/mL (Prubhi=[id number]) 07/14/17 15:41 Entire Visit Hgb 9.2 g/dL (12.9-16.9) L 07/15/17 02:44 Hct 28.7 % (37.5-50.1) L 07/15/17 02:44 PT 13.7 Seconds (9.4-12.1) H 07/14/17 15:41 Total Bilirubin 0.4 mg/dL (0.3-1.0) 07/14/17 15:41 AST 87 Units/L (13-39) H 07/14/17 15:41 ALT 55 Units/L (7-52) H 07/14/17 15:41 - ABG ABG results: PT/INR, D-dimer PT 13.7 Seconds (9.4-12.1) H 07/14/17 15:41 - Attending Attestation I examined this patient and my medical decision-making was reviewed with the ROTARY FURNACE TENDER. I agree with the documented findings, disposition and treatment plan as described except to the extent set forth below. Pt with anemia, will gabi for EGD/colon
[2017-07-15] MEDS ORDERED: SODIUM CHLORIDE/NAHCO3/KCL/PEG 4,000 ML SOLN.RECON PO ONE (13:27)
[2017-07-15] MEDS: cefTRIAXone 1,000 MG in Water for inj. (sterile) 20 ML 10 ML IVP SCH (17:36)
[2017-07-15] MEDS ORDERED: Dextrose Gel 15 GM/37.5 ML TUBE PO ONE (18:53)
[2017-07-15] MEDS: Gabapentin 300 MG CAPSULE PO SCH (20:29)
[2017-07-15] MEDS: traZODone 50 MG TABLET PO SCH (20:29)
[2017-07-16] MEDS: D10% in Water 500 ML IVC SCH ×7 (00:28→20:42)
[2017-07-16 04:21] LABS: Basophils % 0.6 %; Eosinophils # 0.3 K/mcL (0.0-0.6); Eosinophils % 5.7 %; Hematocrit 23.6 % (37.5-50.1); Immature Granulocytes % 1.5 % (0-4); Lymphocytes # 1.9 K/mcL (0.6-4.6); Lymphocytes % 36.4 %; Mean Corpuscular HGB Conc 32.2 g/dL (31.6-35.5); Mean Corpuscular Hemoglobin 27.8 pg (28.0-33.3); Mean Corpuscular Volume 86.4 fL (83.0-100.0); Mean Platelet Volume 10.5 fL (9.4-12.4); Monocytes # 0.6 K/mcL (0.0-1.3); Monocytes % 10.9 %; Neutrophils # 2.4 K/mcL (1.6-8.9); Platelet Count 132 K/mcL (140-400); Red Blood Count 2.73 M/mcL (4.19-5.50); Red Cell Distribution Width 14.6 % (11.5-14.5); Segmented Neutrophils % 44.9 %
[2017-07-16 05:02] LABS: Calcium 6.9 mg/dL (8.6-10.3); Hemoglobin 7.6 g/dL (12.9-16.9); Magnesium 1.7 mg/dL (1.6-2.6); Phosphorous 3.4 mg/dL (2.7-4.5); Potassium 4.1 mEq/L (3.5-5.1)
[2017-07-16] MEDS: Pantoprazole 40 MG VIAL IVP SCH ×2 (05:19→16:55)
[2017-07-16] MEDS: *HR* OxyCODONE/APAP 5/325 TABLET PO PRN ×2 (06:41→15:11)
[2017-07-16] MEDS: metroNIDAZOLE 500 MG TABLET PO SCH ×3 (09:12→21:59)
[2017-07-16] MEDS: Metoprolol XL (24 HR) Succ 50 MG TAB.ER.24H PO SCH ×2 (09:13→21:59)
[2017-07-16] MEDS: amLODIPine 5 MG TABLET PO SCH (09:14)
[2017-07-16] MEDS: Venlafaxine XR (24 HR) 150 MG CAP.ER.24H PO SCH (09:14)
[2017-07-16] MEDS: Cyanocobalamin (B-12) 1,000 MCG TABLET PO SCH (09:15)
[2017-07-16] MEDS: Isosorbide MONOnitrate (24 HR) 30 MG TAB.ER.24H PO SCH (09:15)
[2017-07-16] MEDS: *HR* Amiodarone 200 MG TABLET PO SCH (09:15)
[2017-07-16] MEDS: Insulin LISPRO 300 UNITS/3 ML VIAL SQ SCH ×4 (09:17→20:45)
--- NOTE | 2017-07-16 10:26 | Internal Med Progress Note ---
Date of Encounter: 07/16/17 Time of Encounter: 10:24 - Assessment and plan (1) Hypoglycemia Current Visit: Yes Status: Acute Assessment and plan: A1c was checked and is 5.4. I really believe the patient has been dealing with hypoglycemia due to being on medications for diabetes when he really does not have diabetes. I plan on stopping his oral antidiabetics at discharge. For now we will keep him on the D10 drip and encourage by mouth intake after his procedures later today. He is scheduled for colonoscopy and EGD. Continue with Accu-Cheks (2) C. difficile colitis Current Visit: Yes Status: Acute Assessment and plan: Continue with metronidazole. Day 3 he had spiked assessment the patient has had improvement in his diarrhea has he has been on a bowel prep last night. (3) Acute encephalopathy Current Visit: Yes Status: Acute Assessment and plan: Likely metabolic as well as infectious due to UTI and C. difficile colitis. We will fix the underlying cause. Improving. CT head unremarkable.. (4) Chronic kidney disease Current Visit: Yes Status: Acute Assessment and plan: Around baseline. Continue to monitor Qualifiers: Chronic kidney disease stage: stage 3 (moderate) Qualified Code(s): N18.3 - Chronic kidney disease, stage 3 (moderate) (5) Elevated troponin Current Visit: Yes Status: Acute Assessment and plan: Likely type II NSTEMI with troponin leak secondary to kidney disease. No chest pain. Troponins are consistently at 0.04. Keep on telemetry (6) GI bleed Current Visit: Yes Status: Acute Assessment and plan: Continue with Protonix dose for now. GI is consulted. Hemoglobin continues to drop. We will monitor. Plans for EGD and colonoscopy later today.. Qualifiers: GI bleed type/associated pathology: unspecified gastrointestinal hemorrhage type Qualified Code(s): K92.2 - Gastrointestinal hemorrhage, unspecified (7) Acute blood loss anemia Current Visit: Yes Status: Acute Assessment and plan: plan is as above. check iron studies (8) UTI (urinary tract infection) Current Visit: Yes Status: Acute Assessment and plan: Continue ceftriaxone. Follow cultures. 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 Continue metoprolol. Resume statin. Hold Plavix given low GI bleed.. Qualifiers: Coronary Disease-Associated Artery/Lesion type: [place] artery [place] vs. transplanted heart: [place] heart Associated angina: with unstable angina Qualified Code(s): I25.110 - Atherosclerotic heart disease of [place] coronary artery with unstable angina pectoris (10) HTN (hypertension) Current Visit: No Status: Chronic Assessment and plan: Continue metoprolol and Norvasc. Blood pressure stable. Qualifiers: Hypertension type: essential hypertension Qualified Code(s): I10 - Essential (primary) hypertension (11) DVT prophylaxis Current Visit: No Status: Acute Assessment and plan: SCDs - Subjective Interval history: Patient was seen and examined. Close. We had switched him to D10. Hemoglobin dropped 7.6 from 9.2. Seen by GI with plans for colonoscopy and EGD. AMS due to hypoglycemia was the reason for his admission as well. AMS is improving with better glycemic control. Patient is also found to have C. difficile colitis and has been started on metronidazole. Also being treated for urinary tract infection as well as a positive fecal occult blood testing for which GI has been consulted. The patient is afebrile. - Constitutional Vitals: Temp Pulse Resp BP Pulse Ox 98.7 F 66 16 122/73 96 07/16/17 10:18 07/16/17 10:18 07/16/17 10:18 07/16/17 10:18 07/16/17 10:18 General appearance: Present: A&O X 3, no acute distress, answers questions appropriately Exam: GEN: NAD CVS: RRR. S1, S2, No m/r/g RESP: CTAB ABD: Soft, NT, ND, +BS EXT: No edema. 2+ DP, No rashes NEURO: Nonfocal Internal Medicine: Result - Labs CBC & Chem 7: 07/16/17 04:01 07/16/17 04:01 Labs: Short CBC 07/16/17 Range/Units 04:01 WBC 5.3 (4.3-11.1) K/mcL Hgb 7.6 L D (12.9-16.9) g/dL Hct 23.6 L (37.5-50.1) % Plt Count 132 L (140-400) K/mcL Neutrophils # 2.4 (1.6-8.9) K/mcL BMP 07/16/17 04:01 Sodium 136 Potassium 4.1 Chloride 108 H Carbon Dioxide 22 L BUN 14 Creatinine 1.93 H Glucose 134 H Calcium 6.9 L - ABG Interpretation ABG results: PT/INR, D-dimer PT 13.7 Seconds (9.4-12.1) H 07/14/17 15:41 - VTE Documentation of Mechanical Device: Intermittent pneumatic compression device Consult Discharge Plan - Plan Referrals: Analilia Montero [facility] [Primary Care Provider] - (Patient will follow up with ECF PCP-Signature)
[2017-07-16] MEDS ORDERED: *HR* LORazepam 2 MG/ML VIAL IVP ONE ×2 (10:35)
[2017-07-16] MEDS: Silvasorb 44.4 ML TUBE TP SCH (16:20)
[2017-07-16] MEDS: cefTRIAXone 1,000 MG in Water for inj. (sterile) 20 ML 10 ML IVP SCH (16:55)
[2017-07-16] MEDS: Gabapentin 300 MG CAPSULE PO SCH (21:59)
[2017-07-16] MEDS: traZODone 50 MG TABLET PO SCH (21:59)
--- NOTE | 2017-07-16 23:19 | Anesthesia Evaluation PreOp ---
Date of Encounter: 07/16/17 Time of Encounter: 23:17 - Past History Planned Operation: EGD/colonoscopy Cardiac History: HTN, Hyperlipidemia, Cardiac Surgery (CABG ), Other (AAA) Pulmonary History: Former smoker CRIB TENDER History: Other (encephalopathy related to hypoglycemia this admission - on dextrose infusion currently; resolved) Other Medical History: Renal (ckd), Bleeding, Diabetes Type II (not insulin dependent), Other (c diff) Anesthesia History: No Prior Anesthetic Complications Alcohol Use: occasionally Drug use: none Medications and Allergies Isosorbide MONOnitrate (24 HR) [Imdur] 30 mg PO DAILY 04/02/16 [History] Clopidogrel [Plavix] 75 mg PO DAILY 11/12/16 [History] Gabapentin [Neurontin] 300 mg PO HS 11/12/16 [History] Tramadol HCl [Ultram] 50 - 100 mg PO TID PRN 11/12/16 [History] Ferrous Sulfate [Iron] 325 mg PO DAILY 02/13/17 [History] Cyanocobalamin (Vitamin B-12) [Vitamin B-12] 1,000 mcg SL DAILY 02/14/17 [ History] Trazodone HCl 100 mg PO HS 02/14/17 [History] Glimepiride [Amaryl] 2 mg PO DAILY 06/10/17 [History] Nitroglycerin [Nitrostat] 0.4 mg SL Q5M PRN 06/10/17 [History] Amlodipine Besylate 10 mg PO DAILY #0 06/29/17 [Rx] Buspirone HCl [Buspar] 7.5 mg PO BID PRN tablet 06/29/17 [Rx] Docusate [Colace] 100 mg PO BID udc 06/29/17 [Rx] Insulin LISPRO [HumaLOG] 0 units SQ TIDAC vial 06/29/17 [Rx] Venlafaxine XR (24 HR) [Effexor Xr] 150 mg PO DAILY cap.er.24h 06/29/17 [Rx] Metoprolol XL (24 HR) Succ [Toprol Xl] 200 mg PO BID 07/02/17 [History] Amiodarone [Cordarone] 200 mg PO DAILY 07/14/17 [History] Atorvastatin [Lipitor] 40 mg PO HS 07/14/17 [History] OxyCODONE/APAP 5/325 [Percocet 5/325 MG] 1 each PO Q6HR PRN 07/14/17 [History] 3 Allergy/AdvReac Type Severity Reaction Status Date / Time No Known Allergies Allergy Verified 02/14/17 13:39 - Meds/Allergy Pre-op Review Medications Reviewed: Yes Allergies Reviewed: Yes Beta Blockers on Current Med List: Yes If Beta Blockers taken, Date/Time (Last Dose taken): 07-16-17 metoprolol 21:59 Anesthesia Results - Labs 07/16/17 04:01 07/16/17 04:01 - Imaging EKG: report reviewed, image reviewed (SINUS RHYTHM POSSIBLE INFERIOR MYOCARDIAL INFARCTION, OF INDETERMINATE AGE) Additional studies: TTE: EV/EV echocardiogram Impressions: LVEF 60-65%. Normal LV chamber size and function. Mild concentric left ventricular hypertrophy. Mild left ventricular diastolic dysfunction. Normal right ventricular structure and function. Moderately calcified aortic valve leaflets. Mild-moderate aortic stenosis. Mean gradient 20 mmHg. No evidence of pulmonary hypertension. Anesthesia Exam Last Vital Signs Temp 97.9 F 07/16/17 19:02 Pulse 66 07/16/17 22:50 Resp 16 07/16/17 22:50 BP 131/79 07/16/17 22:50 Pulse Ox 97 07/16/17 22:50 Weight: 101 kg NPO (# of Hours): > 8 hrs - HEENT Pupil (Motor): Pupils equal, EOMI Mallampati: III Teeth: Edentulous Oral Opening: Greater than 3 - CRIB TENDER LOC: Oriented - Cardiac Rhythm: Regular - Pulmonary Breath Sounds: bilateral Clear Respiratory Effort: Symmetrical Anesthesia Assess/Plan ASA Score: 3 Modified Dax Scale for Level of Consciousness: Cooperative, oriented, and tranquil Anesthetic Plan: MAC Monitoring Plan: Standard Monitors Recovery Plan: PACU
[2017-07-16] MEDS ORDERED: Propofol 500 MG/50 ML INFUS..BTL ONE (23:29)
[2017-07-16] MEDS ORDERED: Lidocaine -MPF 2% 2 ML VIAL ONE (23:29)
[2017-07-16] MEDS ORDERED: *HR* Propofol 200 MG/20 ML VIAL IVP ONE (23:29)
[2017-07-17] MEDS ORDERED: *HR* PHENYLEPHRINE 1,000 MCG/10 ML SYRINGE IVP ONE
--- NOTE | 2017-07-17 00:15 | Anesthesia Evaluation Post Op ---
Date of Encounter: 07/17/17 Time of Encounter: 00:15 - Vital Signs Vital Signs: Last Vital Signs Temp 97.9 F 07/16/17 19:02 Pulse 66 07/16/17 22:50 Resp 16 07/16/17 22:50 BP 131/79 07/16/17 22:50 Pulse Ox 97 07/16/17 22:50 - Lungs Lungs: Clear Ascult./Percussion - Airway Airway: Non-obstructed - Cardiovascular Regular Rate - Mental Status Mental Status: Alert & Oriented, Answers Appropriately - Pain Pain Scale: 1 - Nausea Vomiting Nausea Vomiting: Not Present - Hydration Hydration: NPO - Discharge PostOp Status: Transfer Patient to floor
[2017-07-17] MEDS: D10% in Water 500 ML IVC SCH ×2 (00:43→04:30)
[2017-07-17 03:54] LABS: Basophils % 0.6 %; Eosinophils # 0.4 K/mcL (0.0-0.6); Eosinophils % 7.3 %; Hematocrit 27.2 % (37.5-50.1); Hemoglobin 8.6 g/dL (12.9-16.9); Immature Granulocytes % 0.4 % (0-4); Lymphocytes # 1.3 K/mcL (0.6-4.6); Lymphocytes % 27.7 %; Mean Corpuscular HGB Conc 31.6 g/dL (31.6-35.5); Mean Corpuscular Hemoglobin 27.3 pg (28.0-33.3); Mean Corpuscular Volume 86.3 fL (83.0-100.0); Mean Platelet Volume 9.8 fL (9.4-12.4); Monocytes # 0.5 K/mcL (0.0-1.3); Monocytes % 9.8 %; Neutrophils # 2.6 K/mcL (1.6-8.9); Platelet Count 158 K/mcL (140-400); Red Blood Count 3.15 M/mcL (4.19-5.50); Red Cell Distribution Width 14.3 % (11.5-14.5); Segmented Neutrophils % 54.2 %
[2017-07-17 04:31] LABS: % Iron Saturation 8 % (20-55); Ferritin 422 ng/ml (20-250); Iron 14 mcg/dL (65-175); Transferrin 126 mg/dL (203-362)
[2017-07-17 04:33] LABS: Calcium 7.5 mg/dL (8.6-10.3); Potassium 3.6 mEq/L (3.5-5.1)
[2017-07-17] MEDS ORDERED: D5% in 0.9% NACL 1,000 ML IVC SCH (05:00)
[2017-07-17] MEDS: Pantoprazole 40 MG VIAL IVP SCH ×2 (05:14→18:43)
[2017-07-17] MEDS: *HR* OxyCODONE/APAP 5/325 TABLET PO PRN ×2 (05:25→14:16)
[2017-07-17] MEDS: Venlafaxine XR (24 HR) 150 MG CAP.ER.24H PO SCH (09:49)
[2017-07-17] MEDS: Metoprolol XL (24 HR) Succ 50 MG TAB.ER.24H PO SCH ×2 (09:49→21:28)
[2017-07-17] MEDS: Isosorbide MONOnitrate (24 HR) 30 MG TAB.ER.24H PO SCH (09:49)
[2017-07-17] MEDS: metroNIDAZOLE 500 MG TABLET PO SCH ×3 (09:49→21:28)
[2017-07-17] MEDS: *HR* Amiodarone 200 MG TABLET PO SCH (09:50)
[2017-07-17] MEDS: Cyanocobalamin (B-12) 1,000 MCG TABLET PO SCH (09:50)
[2017-07-17] MEDS: Insulin LISPRO 300 UNITS/3 ML VIAL SQ SCH ×4 (09:50→21:40)
[2017-07-17] MEDS: amLODIPine 5 MG TABLET PO SCH (09:50)
[2017-07-17] MEDS: Silvasorb 44.4 ML TUBE TP SCH (09:51)
--- NOTE | 2017-07-17 12:11 | Internal Med Progress Note ---
Date of Encounter: 07/17/17 Time of Encounter: 10:00 - Assessment and plan (1) Hypoglycemia Current Visit: Yes Status: Acute Assessment and plan: A1c was checked and is 5.4. Stop dextrose drip and encourage by mouth intake. Continue Accu-Cheks area and I really believe the patient has been dealing with hypoglycemia due to being on medications for diabetes when he really does not have diabetes. I plan on stopping his oral antidiabetics at discharge. (2) C. difficile colitis Current Visit: Yes Status: Acute Assessment and plan: Continue with metronidazole. Day 4 (3) Acute encephalopathy Current Visit: Yes Status: Acute Assessment and plan: Likely metabolic as well as infectious due to UTI and C. difficile colitis. We will fix the underlying cause. Improving. CT head unremarkable.. (4) Chronic kidney disease Current Visit: Yes Status: Acute Assessment and plan: Around baseline. Continue to monitor Qualifiers: Chronic kidney disease stage: stage 3 (moderate) Qualified Code(s): N18.3 - Chronic kidney disease, stage 3 (moderate) (5) Elevated troponin Current Visit: Yes Status: Acute Assessment and plan: Likely type II NSTEMI with troponin leak secondary to kidney disease. No chest pain. Troponins are consistently at 0.04. Keep on telemetry (6) GI bleed Current Visit: Yes Status: Acute Assessment and plan: Continue with Protonix dose for now. GI is consulted. Hemoglobin is actually better this morning. Up to 8.6. Colonoscopy was with poor prep with plans on repeating on Wednesday. EGD with no significant findings as source of bleed. 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 Qualifiers: GI bleed type/associated pathology: unspecified gastrointestinal hemorrhage type Qualified Code(s): K92.2 - Gastrointestinal hemorrhage, unspecified (7) Acute blood loss anemia Current Visit: Yes Status: Acute Assessment and plan: plan is as above. Iron studies shows anemia of chronic disease (8) UTI (urinary tract infection) Current Visit: Yes Status: Acute Assessment and plan: Continue ceftriaxone. Follow cultures. 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 Continue metoprolol. Resume statin. Hold Plavix given low GI bleed.. Qualifiers: Coronary Disease-Associated Artery/Lesion type: [place] artery [place] vs. transplanted heart: [place] heart Associated angina: with unstable angina Qualified Code(s): I25.110 - Atherosclerotic heart disease of [place] coronary artery with unstable angina pectoris (10) HTN (hypertension) Current Visit: No Status: Chronic Assessment and plan: Continue metoprolol and Norvasc. Blood pressure stable. Qualifiers: Hypertension type: essential hypertension Qualified Code(s): I10 - Essential (primary) hypertension (11) DVT prophylaxis Current Visit: No Status: Acute Assessment and plan: SCDs - Subjective Interval history: Patient was seen and examined. Afebrile. Remains on dextrose drip. Colonoscopy was done but it was a poor prep. AMS is improving with better glycemic control. Patient is also found to have C. difficile colitis and has been started on metronidazole. Diarrhea is improving Also being treated for urinary tract infection as well as a positive fecal occult blood testing for which GI has been consulted. - Constitutional Vitals: Temp Pulse Resp BP Pulse Ox 99.1 F 72 16 122/75 95 07/17/17 10:15 07/17/17 10:15 07/17/17 10:15 07/17/17 10:15 07/17/17 10:15 General appearance: Present: A&O X 3, no acute distress, answers questions appropriately Exam: GEN: NAD CVS: RRR. S1, S2, No m/r/g RESP: CTAB ABD: Soft, NT, ND, +BS EXT: No edema. 2+ DP, No rashes NEURO: Nonfocal Internal Medicine: Result - Labs CBC & Chem 7: 07/17/17 03:09 07/17/17 03:09 Labs: Short CBC 07/17/17 Range/Units 03:09 WBC 4.8 (4.3-11.1) K/mcL Hgb 8.6 L (12.9-16.9) g/dL Hct 27.2 L (37.5-50.1) % Plt Count 158 (140-400) K/mcL Neutrophils # 2.6 (1.6-8.9) K/mcL BMP 07/17/17 03:09 Sodium 136 Potassium 3.6 Chloride 104 Carbon Dioxide 25 BUN 12 Creatinine 1.92 H Glucose 195 H Calcium 7.5 L - ABG Interpretation ABG results: PT/INR, D-dimer PT 13.7 Seconds (9.4-12.1) H 07/14/17 15:41 - VTE Documentation of Mechanical Device: Intermittent pneumatic compression device Consult Discharge Plan - Plan Referrals: Analilia Montero, NÉSTOR [Primary Care Provider] - (Patient will follow up with ECF PCP-Signature)
[2017-07-17] MEDS: cefTRIAXone 1,000 MG in Water for inj. (sterile) 20 ML 10 ML IVP SCH (18:43)
[2017-07-17] MEDS: traZODone 50 MG TABLET PO SCH (21:28)
[2017-07-17] MEDS: Gabapentin 300 MG CAPSULE PO SCH (21:28)
[2017-07-18 04:19] LABS: Basophils % 0.6 %; Eosinophils # 0.3 K/mcL (0.0-0.6); Eosinophils % 5.4 %; Hemoglobin 8.2 g/dL (12.9-16.9); Immature Granulocytes % 0.2 % (0-4); Lymphocytes # 1.7 K/mcL (0.6-4.6); Mean Corpuscular HGB Conc 31.5 g/dL (31.6-35.5); Mean Corpuscular Hemoglobin 27.4 pg (28.0-33.3); Mean Platelet Volume 9.7 fL (9.4-12.4); Monocytes # 0.4 K/mcL (0.0-1.3); Monocytes % 8.9 %; Neutrophils # 2.5 K/mcL (1.6-8.9); Platelet Count 155 K/mcL (140-400); Red Blood Count 2.99 M/mcL (4.19-5.50); Red Cell Distribution Width 14.4 % (11.5-14.5); Segmented Neutrophils % 50.9 %
[2017-07-18 04:33] LABS: Calcium 7.5 mg/dL (8.6-10.3); Potassium 4.2 mEq/L (3.5-5.1)
[2017-07-18] MEDS: Pantoprazole 40 MG VIAL IVP SCH ×2 (04:49→18:14)
[2017-07-18] MEDS: *HR* OxyCODONE/APAP 5/325 TABLET PO PRN (05:05)
[2017-07-18] MEDS: Insulin LISPRO 300 UNITS/3 ML VIAL SQ SCH ×4 (08:39→21:19)
--- NOTE | 2017-07-18 08:45 | Internal Med Progress Note ---
Date of Encounter: 07/18/17 Time of Encounter: 08:41 - Assessment and plan (1) Hypoglycemia Current Visit: Yes Status: Acute Assessment and plan: A1c was checked and is 5.4. Encourage by mouth intake. Remains off dextrose drip. Glucose is okay. Continue Accu-Cheks area and I really believe the patient has been dealing with hypoglycemia due to being on medications for diabetes when he really does not have diabetes. I plan on stopping his oral antidiabetics at discharge. (2) C. difficile colitis Current Visit: Yes Status: Acute Assessment and plan: Continue with metronidazole. Day (3) Acute encephalopathy Current Visit: Yes Status: Acute Assessment and plan: Likely metabolic as well as infectious due to UTI and C. difficile colitis. We will fix the underlying cause. Improving. CT head unremarkable.. (4) Chronic kidney disease Current Visit: Yes Status: Acute Assessment and plan: Around baseline. Continue to monitor Qualifiers: Chronic kidney disease stage: stage 3 (moderate) Qualified Code(s): N18.3 - Chronic kidney disease, stage 3 (moderate) (5) Elevated troponin Current Visit: Yes Status: Acute Assessment and plan: Likely type II NSTEMI with troponin leak secondary to kidney disease. No chest pain. Troponins are consistently at 0.04. Keep on telemetry (6) GI bleed Current Visit: Yes Status: Acute Assessment and plan: Continue with Protonix dose for now. GI is consulted. Hemoglobin is 8.2which is around that for the last couple days. Colonoscopy was with poor prep with plans on repeating on Wednesday. EGD with no significant findings as source of bleed. 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 Qualifiers: GI bleed type/associated pathology: unspecified gastrointestinal hemorrhage type Qualified Code(s): K92.2 - Gastrointestinal hemorrhage, unspecified (7) Acute blood loss anemia Current Visit: Yes Status: Acute Assessment and plan: plan is as above. Iron studies shows anemia of chronic disease (8) UTI (urinary tract infection) Current Visit: Yes Status: Acute Assessment and plan: Continue ceftriaxone. Follow cultures. 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 Continue metoprolol. Resume statin. Hold Plavix given low GI bleed.. Qualifiers: Coronary Disease-Associated Artery/Lesion type: [place] artery [place] vs. transplanted heart: [place] heart Associated angina: with unstable angina Qualified Code(s): I25.110 - Atherosclerotic heart disease of [place] coronary artery with unstable angina pectoris (10) HTN (hypertension) Current Visit: No Status: Chronic Assessment and plan: Continue metoprolol and Norvasc. Blood pressure stable. Qualifiers: Hypertension type: essential hypertension Qualified Code(s): I10 - Essential (primary) hypertension (11) DVT prophylaxis Current Visit: No Status: Acute Assessment and plan: SCDs - Subjective Interval history: Patient was seen and examined. Afebrile. Glucoses is holding up okay despite being off the dextrose drip. Colonoscopy was done but it was a poor prep. AMS is improving with better glycemic control. Patient is also found to have C. difficile colitis and has been started on metronidazole. Diarrhea is improving . Also being treated for urinary tract infection as well as a positive fecal occult blood testing for which GI has been consulted. - Constitutional Vitals: Temp Pulse Resp BP Pulse Ox 98.0 F 60 14 134/72 99 07/18/17 07:19 07/18/17 07:19 07/18/17 07:19 07/18/17 07:19 07/18/17 07:19 General appearance: Present: A&O X 3, no acute distress, answers questions appropriately Exam: GEN: NAD CVS: RRR. S1, S2, No m/r/g RESP: CTAB ABD: Soft, NT, ND, +BS EXT: No edema. 2+ DP, No rashes NEURO: Nonfocal Internal Medicine: Result - Labs CBC & Chem 7: 07/18/17 03:59 07/18/17 03:59 Labs: Short CBC 07/18/17 Range/Units 03:59 WBC 4.9 (4.3-11.1) K/mcL Hgb 8.2 L (12.9-16.9) g/dL Hct 26.0 L (37.5-50.1) % Plt Count 155 (140-400) K/mcL Neutrophils # 2.5 (1.6-8.9) K/mcL BMP 07/18/17 03:59 Sodium 137 Potassium 4.2 Chloride 107 Carbon Dioxide 28 BUN 15 Creatinine 2.22 H Glucose 99 Calcium 7.5 L - ABG Interpretation ABG results: PT/INR, D-dimer PT 13.7 Seconds (9.4-12.1) H 07/14/17 15:41 - VTE Documentation of Mechanical Device: Intermittent pneumatic compression device Consult Discharge Plan - Plan Referrals: Analilia Montero, INFORMATION SYSTEMS SECURITY MANAGER [Primary Care Provider] - (Patient will follow up with [facility] PCP-[facility])
[2017-07-18] MEDS: *HR* Amiodarone 200 MG TABLET PO SCH (10:27)
[2017-07-18] MEDS: metroNIDAZOLE 500 MG TABLET PO SCH ×3 (10:27→21:18)
[2017-07-18] MEDS: Cyanocobalamin (B-12) 1,000 MCG TABLET PO SCH (10:27)
[2017-07-18] MEDS: Venlafaxine XR (24 HR) 150 MG CAP.ER.24H PO SCH (10:27)
[2017-07-18] MEDS: Metoprolol XL (24 HR) Succ 50 MG TAB.ER.24H PO SCH ×2 (10:27→21:17)
[2017-07-18] MEDS: amLODIPine 5 MG TABLET PO SCH (10:27)
[2017-07-18] MEDS: Isosorbide MONOnitrate (24 HR) 30 MG TAB.ER.24H PO SCH (10:27)
[2017-07-18] MEDS: Silvasorb 44.4 ML TUBE TP SCH (10:28)
[2017-07-18] MEDS ORDERED: SODIUM CHLORIDE/NAHCO3/KCL/PEG 4,000 ML SOLN.RECON PO ONE ×2 (12:05→17:00)
[2017-07-18] MEDS: cefTRIAXone 1,000 MG in Water for inj. (sterile) 20 ML 10 ML IVP SCH (18:13)
[2017-07-18] MEDS ORDERED: *HR* LORazepam 2 MG/ML VIAL IVP ONE (19:45)
[2017-07-18] MEDS: Gabapentin 300 MG CAPSULE PO SCH (21:17)
[2017-07-18] MEDS: traZODone 50 MG TABLET PO SCH (21:18)
[2017-07-19] MEDS: *HR* OxyCODONE/APAP 5/325 TABLET PO PRN ×2 (05:16→11:59)
[2017-07-19] MEDS: Pantoprazole 40 MG VIAL IVP SCH ×2 (05:16→18:00)
--- NOTE | 2017-07-19 07:39 | Internal Med Progress Note ---
Date of Encounter: 07/19/17 Time of Encounter: 07:36 - Assessment and plan (1) Hypoglycemia Current Visit: Yes Status: Acute Assessment and plan: A1c was checked and is 5.4. Encourage by mouth intake. Currently nothing by mouth for procedure. We will have to watch for hypoglycemic episodes. Last glucose was 118 yesterday night. We will check a point of care now. Remains off dextrose drip. Continue Accu-Cheks area and I really believe the patient has been dealing with hypoglycemia due to being on medications for diabetes when he really does not have diabetes. I plan on stopping his oral antidiabetics at discharge. (2) C. difficile colitis Current Visit: Yes Status: Acute Assessment and plan: Continue with metronidazole. Day 6 (3) Acute encephalopathy Current Visit: Yes Status: Acute Assessment and plan: Likely metabolic as well as infectious due to UTI and C. difficile colitis. We will fix the underlying cause. Improving. CT head unremarkable.. (4) Chronic kidney disease Current Visit: Yes Status: Acute Assessment and plan: Around baseline. Continue to monitor Qualifiers: Chronic kidney disease stage: stage 3 (moderate) Qualified Code(s): N18.3 - Chronic kidney disease, stage 3 (moderate) (5) Elevated troponin Current Visit: Yes Status: Acute Assessment and plan: Likely type II NSTEMI with troponin leak secondary to kidney disease. No chest pain. Troponins are consistently at 0.04. Keep on telemetry (6) GI bleed Current Visit: Yes Status: Acute Assessment and plan: Continue with Protonix IV for now. GI is consulted. Hemoglobin is around 8. Awaiting labs this morning. Colonoscopy was with poor prep with plans on repeating today. EGD with no significant findings as source of bleed. 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 Qualifiers: GI bleed type/associated pathology: unspecified gastrointestinal hemorrhage type Qualified Code(s): K92.2 - Gastrointestinal hemorrhage, unspecified (7) Acute blood loss anemia Current Visit: Yes Status: Acute Assessment and plan: plan is as above. Iron studies shows anemia of chronic disease (8) UTI (urinary tract infection) Current Visit: Yes Status: Acute Assessment and plan: Growing staph epi. change ceftriaxone to doxy. tomorrow would be day 7 abx and we can stop then. 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 Continue metoprolol. Resume statin. Hold Plavix given low GI bleed.. Qualifiers: Coronary Disease-Associated Artery/Lesion type: [place] artery [place] vs. transplanted heart: [place] heart Associated angina: with unstable angina Qualified Code(s): I25.110 - Atherosclerotic heart disease of [place] coronary artery with unstable angina pectoris (10) HTN (hypertension) Current Visit: No Status: Chronic Assessment and plan: Continue metoprolol and Norvasc. Blood pressure stable. Qualifiers: Hypertension type: essential hypertension Qualified Code(s): I10 - Essential (primary) hypertension (11) DVT prophylaxis Current Visit: No Status: Acute Assessment and plan: SCDs - Subjective Interval history: Patient was seen and examined. Afebrile. The patient has been off the dextrose drip for a couple of days now. Lowest glucose reading is at 83. He is currently nothing by mouth and had a bowel prep. Plans for repeat colonoscopy today. Colonoscopy was done earlier instead but it was a poor prep. AMS is improving with better glycemic control. Patient is also found to have C. difficile colitis and has been started on metronidazole. Diarrhea is improving . Also being treated for urinary tract infection as well as a positive fecal occult blood testing for which GI has been consulted. - Constitutional Vitals: Temp Pulse Resp BP Pulse Ox 98.0 F 68 18 159/89 100 07/19/17 06:33 07/19/17 06:33 07/19/17 06:33 07/19/17 06:33 07/19/17 06:33 General appearance: Present: A&O X 3, no acute distress, answers questions appropriately Exam: GEN: NAD CVS: RRR. S1, S2, No m/r/g RESP: CTAB ABD: Soft, NT, ND, +BS EXT: No edema. 2+ DP, No rashes NEURO: Nonfocal Internal Medicine: Result - Labs CBC & Chem 7: 07/19/17 08:03 07/19/17 08:03 - ABG Interpretation ABG results: PT/INR, D-dimer PT 13.7 Seconds (9.4-12.1) H 02/14/18 15:41 - VTE Documentation of Mechanical Device: Intermittent pneumatic compression device Consult Discharge Plan - Plan Referrals: Analilia Montero CNP [Primary Care Provider] - (Patient will follow up with [facility] PCP-[facility])
[2017-07-19] MEDS ORDERED: *HR* LORazepam 2 MG/ML VIAL IVP ONE ×2 (07:43→13:06)
[2017-07-19 08:24] LABS: Basophils % 0.6 %; Eosinophils # 0.3 K/mcL (0.0-0.6); Eosinophils % 5.4 %; Hematocrit 29.1 % (37.5-50.1); Hemoglobin 9.1 g/dL (12.9-16.9); Immature Granulocytes % 0.4 % (0-4); Lymphocytes # 1.7 K/mcL (0.6-4.6); Lymphocytes % 34.4 %; Mean Corpuscular HGB Conc 31.3 g/dL (31.6-35.5); Mean Corpuscular Hemoglobin 27.4 pg (28.0-33.3); Mean Corpuscular Volume 87.7 fL (83.0-100.0); Monocytes # 0.4 K/mcL (0.0-1.3); Monocytes % 8.2 %; Neutrophils # 2.5 K/mcL (1.6-8.9); Platelet Count 150 K/mcL (140-400); Red Blood Count 3.32 M/mcL (4.19-5.50); Red Cell Distribution Width 14.3 % (11.5-14.5)
[2017-07-19 08:27] LABS: Calcium 7.4 mg/dL (8.6-10.3); Potassium 3.9 mEq/L (3.5-5.1)
[2017-07-19] MEDS: Insulin LISPRO 300 UNITS/3 ML VIAL SQ SCH ×4 (08:36→21:20)
[2017-07-19] MEDS: Cyanocobalamin (B-12) 1,000 MCG TABLET PO SCH (10:02)
[2017-07-19] MEDS: Isosorbide MONOnitrate (24 HR) 30 MG TAB.ER.24H PO SCH (10:02)
[2017-07-19] MEDS: metroNIDAZOLE 500 MG TABLET PO SCH ×3 (10:02→20:30)
[2017-07-19] MEDS: *HR* Amiodarone 200 MG TABLET PO SCH (10:02)
[2017-07-19] MEDS: Venlafaxine XR (24 HR) 150 MG CAP.ER.24H PO SCH (10:02)
[2017-07-19] MEDS: Metoprolol XL (24 HR) Succ 50 MG TAB.ER.24H PO SCH ×2 (10:02→20:30)
[2017-07-19] MEDS: amLODIPine 5 MG TABLET PO SCH (10:02)
[2017-07-19] MEDS: Silvasorb 44.4 ML TUBE TP SCH (10:02)
[2017-07-19] MEDS ORDERED: *HR* FentaNYL (PF) 100 MCG/2 ML VIAL ONE (19:04)
[2017-07-19] MEDS ORDERED: *HR* Midazolam HCl 5 MG/5 ML VIAL IVP ONE (19:04)
[2017-07-19] MEDS ORDERED: *HR* FentaNYL (PF) 100 MCG/2 ML VIAL IVP ONE ×2 (19:12→19:30)
[2017-07-19] MEDS ORDERED: *HR* Midazolam HCl 2 MG/2 ML VIAL IVP ONE (19:12)
[2017-07-19] MEDS ORDERED: Simethicone 40 MG/0.6 ML MLS IR ONE (19:12)
[2017-07-19] MEDS: traZODone 50 MG TABLET PO SCH (20:30)
[2017-07-19] MEDS: Doxycycline 100 MG CAPSULE PO SCH (20:30)
[2017-07-19] MEDS: Gabapentin 300 MG CAPSULE PO SCH (20:30)
[2017-07-20 05:23] LABS: Basophils % 0.5 %; Eosinophils # 0.3 K/mcL (0.0-0.6); Eosinophils % 6.8 %; Hematocrit 23.7 % (37.5-50.1); Immature Granulocytes % 0.2 % (0-4); Lymphocytes # 1.6 K/mcL (0.6-4.6); Lymphocytes % 38.1 %; Mean Corpuscular HGB Conc 31.2 g/dL (31.6-35.5); Mean Corpuscular Hemoglobin 27.1 pg (28.0-33.3); Mean Corpuscular Volume 86.8 fL (83.0-100.0); Mean Platelet Volume 9.9 fL (9.4-12.4); Monocytes # 0.4 K/mcL (0.0-1.3); Monocytes % 8.5 %; Platelet Count 153 K/mcL (140-400); Red Blood Count 2.73 M/mcL (4.19-5.50); Red Cell Distribution Width 14.3 % (11.5-14.5); Segmented Neutrophils % 45.9 %
[2017-07-20 05:24] LABS: Hemoglobin 7.4 g/dL (12.9-16.9)
[2017-07-20] MEDS: *HR* OxyCODONE/APAP 5/325 TABLET PO PRN ×2 (05:29→14:39)
[2017-07-20] MEDS: Pantoprazole 40 MG VIAL IVP SCH (05:30)
[2017-07-20 05:54] LABS: Calcium 7.3 mg/dL (8.6-10.3); Magnesium 1.7 mg/dL (1.6-2.6); Potassium 3.7 mEq/L (3.5-5.1)
[2017-07-20] MEDS: Insulin LISPRO 300 UNITS/3 ML VIAL SQ SCH ×3 (08:35→16:57)
[2017-07-20] MEDS: Isosorbide MONOnitrate (24 HR) 30 MG TAB.ER.24H PO SCH (08:49)
[2017-07-20] MEDS: Metoprolol XL (24 HR) Succ 50 MG TAB.ER.24H PO SCH (08:49)
[2017-07-20] MEDS: amLODIPine 5 MG TABLET PO SCH (08:49)
[2017-07-20] MEDS: metroNIDAZOLE 500 MG TABLET PO SCH ×2 (08:49→14:39)
[2017-07-20] MEDS: Cyanocobalamin (B-12) 1,000 MCG TABLET PO SCH (08:50)
[2017-07-20] MEDS: Doxycycline 100 MG CAPSULE PO SCH (08:50)
[2017-07-20] MEDS: Silvasorb 44.4 ML TUBE TP SCH (08:50)
[2017-07-20] MEDS: Venlafaxine XR (24 HR) 150 MG CAP.ER.24H PO SCH (08:50)
[2017-07-20] MEDS: *HR* Amiodarone 200 MG TABLET PO SCH (08:50)
--- NOTE | 2017-07-20 09:27 | Internal Med Progress Note ---
Date of Encounter: 07/20/17 - Assessment and plan (1) Acute blood loss anemia Current Visit: Yes Status: Acute (2) Acute encephalopathy Current Visit: Yes Status: Acute (3) C. difficile colitis Current Visit: Yes Status: Acute (4) CAD (coronary artery disease) Current Visit: No Status: Chronic Qualifiers: Coronary Disease-Associated Artery/Lesion type: [place] artery [place] vs. transplanted heart: [place] heart Associated angina: with unstable angina Qualified Code(s): I25.110 - Atherosclerotic heart disease of [place] coronary artery with unstable angina pectoris (5) Chronic kidney disease, stage III (moderate) Current Visit: No Status: Acute (6) DVT prophylaxis Current Visit: No Status: Acute (7) Elevated troponin Current Visit: Yes Status: Acute (8) GI bleed Current Visit: Yes Status: Acute Qualifiers: GI bleed type/associated pathology: unspecified gastrointestinal hemorrhage type Qualified Code(s): K92.2 - Gastrointestinal hemorrhage, unspecified (9) HTN (hypertension) Current Visit: No Status: Chronic Qualifiers: Hypertension type: essential hypertension Qualified Code(s): I10 - Essential (primary) hypertension (10) Hypoglycemia Current Visit: Yes Status: Acute (11) UTI (urinary tract infection) Current Visit: Yes Status: Acute Qualifiers: Urinary tract infection type: site unspecified Hematuria presence: without hematuria Qualified Code(s): N39.0 - Urinary tract infection, site not specified - Constitutional Vitals: Temp Pulse Resp BP Pulse Ox 98.9 F 60 17 122/76 96 07/20/17 07:31 07/20/17 07:31 07/20/17 07:31 07/20/17 07:31 07/20/17 07:31 General appearance: Present: A&O X 3, no acute distress, answers questions appropriately Internal Medicine: Result - Labs CBC & Chem 7: 07/20/17 04:04 07/20/17 04:04 Labs: Short CBC 07/20/17 Range/Units 04:04 WBC 4.3 (4.3-11.1) K/mcL Hgb 7.4 L D (12.9-16.9) g/dL Hct 23.7 L (37.5-50.1) % Plt Count 153 (140-400) K/mcL Neutrophils # 2.0 (1.6-8.9) K/mcL BMP 07/20/17 04:04 Sodium 137 Potassium 3.7 Chloride 107 Carbon Dioxide 25 BUN 17 Creatinine 2.08 H Glucose 112 H Calcium 7.3 L - ABG Interpretation ABG results: PT/INR, D-dimer PT 13.7 Seconds (9.4-12.1) H 07/14/17 15:41 - VTE Documentation of Mechanical Device: Intermittent pneumatic compression device Consult Discharge Plan - Plan Referrals: Analilia Montero, AIRCRAFT MAINTENANCE DIRECTOR [Primary Care Provider] - (Patient will follow up with [facility] PCP-[facility])
[2017-07-20] MEDS ORDERED: hydrOXYzine pamoate 25 MG CAPSULE PO PRN (11:43)
[2017-07-20 13:50] LABS: Hematocrit 26.9 % (37.5-50.1); Hemoglobin 8.7 g/dL (12.9-16.9)
--- NOTE | 2017-07-20 14:59 | Discharge Summary ---
- NOTES TO OUTPATIENT PROVIDER Notes to Outpatient Provider: Follow up with urology for urinary retention. Patient is being discharged with Mosqueda catheter in place. Patient's oral anti- glycemic agents have been stopped due to hypoglycemia Orders not resulted at time of discharge: Pending orders 07/20/17 18:00 Hemoglobin and Hematocrit [HEME] Q6H 07/21/17 00:00 Hemoglobin and Hematocrit [HEME] Q6H Date of Encounter: 07/20/17 Time of Encounter: 14:57 - Discharge Diagnosis (1) Acute blood loss anemia Priority: Primary Status: Acute (2) Acute encephalopathy Priority: Secondary Status: Resolved (3) C. difficile colitis Priority: Secondary Status: Acute (4) CAD (coronary artery disease) Priority: Secondary Status: Chronic Qualifiers: Coronary Disease-Associated Artery/Lesion type: [place] artery [place] vs. transplanted heart: [place] heart Associated angina: with unstable angina Qualified Code(s): I25.110 - Atherosclerotic heart disease of [place] coronary artery with unstable angina pectoris (5) Chronic kidney disease, stage III (moderate) Priority: Secondary Status: Chronic (6) DVT prophylaxis Priority: Secondary Status: Acute (7) Elevated troponin Priority: Secondary Status: Acute (8) GI bleed Priority: Secondary Status: Acute Qualifiers: GI bleed type/associated pathology: unspecified gastrointestinal hemorrhage type Qualified Code(s): K92.2 - Gastrointestinal hemorrhage, unspecified (9) HTN (hypertension) Priority: Secondary Status: Chronic Qualifiers: Hypertension type: essential hypertension Qualified Code(s): I10 - Essential (primary) hypertension (10) Hypoglycemia Priority: Secondary Status: Resolved (11) UTI (urinary tract infection) Priority: Secondary Status: Acute Qualifiers: Urinary tract infection type: acute cystitis Hematuria presence: without hematuria Qualified Code(s): N30.00 - Acute cystitis without hematuria (12) Urinary retention Priority: Secondary Status: Acute Hospital course: Mr. Esquivel is a 77 year old male patient with history of coronary artery disease, diabetes, hypertension who was hospitalized here initially with acute encephalopathy. This was believed to be due to hypoglycemia. Patient was on oral anti-glycemic agents and had been having diarrhea that is at his [facility] facility. He also has chronic kidney disease. His oral anti-glycemic agents have now been stopped. His hemoglobin A1c level is 5.4%. His stools were positive for C. difficile. Patient was treated for this with Flagyl. Patient was also anemic with hemoglobin dropping to 7.6. As such gastroenterology was consulted. Patient underwent upper GI endoscopy which showed Dugan's esophagitis and erythematous mucosa in the stomach. Patient has been placed on Protonix for this. He also underwent colonoscopy which did not show any pseudomembranes. Patient had solid stool. No polyps or bleeding was identified. The patient's hemoglobin levels have improved since then. He is on iron replacement therapy. He is not doing much better and is clinically stable to be discharged back to skilled rehabilitation. He will complete treatment for C. difficile with Flagyl. His renal function has returned to baseline. His urine culture was positive for staph epidermidis. And he has completed antibiotic treatment for this. Patient has also been having urinary retention and has a Mosqueda catheter in place. He will follow up with urology as outpatient for further management. Placing him on Flomax in the interim. Discharge discussed with: patient, nurse, case management - Time Spent with Patient Total time spent providing and/or coordinating discharge services: Greater than 30 minutes (35 min) - Discharge Medications Prescriptions: OxyCODONE/APAP 5/325 [Percocet 5/325 MG] 1 each PO Q6HR PRN 5 Days #14 tablet PRN Reason: Moderate Pain hydrOXYzine pamoate [HydrOXYzine Pamoate] 25 mg PO DAILY PRN #10 capsule PRN Reason: Anxiety metroNIDAZOLE [Flagyl] 500 mg PO TID #21 tablet Pantoprazole Sodium [Protonix] 40 mg PO BID #60 tablet. Tamsulosin [Flomax] 0.4 mg PO DAILY #30 cap.er.24h Home Medications: Isosorbide MONOnitrate (24 HR) [Imdur] 30 mg PO DAILY 04/02/16 [History] Clopidogrel [Plavix] 75 mg PO DAILY 11/12/16 [History] Gabapentin [Neurontin] 300 mg PO HS 11/12/16 [History] Ferrous Sulfate [Iron] 325 mg PO DAILY 02/13/17 [History] Cyanocobalamin (Vitamin B-12) [Vitamin B-12] 1,000 mcg SL DAILY 02/14/17 [ History] Trazodone HCl 100 mg PO HS 02/14/17 [History] Nitroglycerin [Nitrostat] 0.4 mg SL Q5M PRN 06/10/17 [History] Amlodipine Besylate 10 mg PO DAILY #0 06/29/17 [Rx] Buspirone HCl [Buspar] 7.5 mg PO BID PRN tablet 06/29/17 [Rx] Docusate [Colace] 100 mg PO BID udc 06/29/17 [Rx] Insulin LISPRO [HumaLOG] 0 units SQ TIDAC vial 06/29/17 [Rx] Venlafaxine XR (24 HR) [Effexor Xr] 150 mg PO DAILY cap.er.24h 06/29/17 [Rx] Metoprolol XL (24 HR) Succ [Toprol Xl] 200 mg PO BID 07/02/17 [History] Amiodarone [Cordarone] 200 mg PO DAILY 07/14/17 [History] Atorvastatin [Lipitor] 40 mg PO HS 07/14/17 [History] OxyCODONE/APAP 5/325 [Percocet 5/325 MG] 1 each PO Q6HR PRN 5 Days #14 tablet [Rx] Pantoprazole Sodium [Protonix] 40 mg PO BID #60 tablet. 07/20/17 [Rx] Silvasorb 1 appl TP DAILY tube 07/20/17 [Rx] Tamsulosin [Flomax] 0.4 mg PO DAILY #30 cap.er.24h 07/20/17 [Rx] hydrOXYzine pamoate [HydrOXYzine Pamoate] 25 mg PO DAILY PRN #10 capsule [Rx] metroNIDAZOLE [Flagyl] 500 mg PO TID #21 tablet 07/20/17 [Rx] Allergies/Adverse Reactions: 3 Allergy/AdvReac Type Severity Reaction Status Date / Time No Known Allergies Allergy Verified 02/14/17 13:39 Date of admission: 07/14/17 20:30 Primary care physician: Analilia Montero CNP Consults: 07/14/17 20:38 Consult to Gastroenterology [CONS] Routine Consulting Provider: Gastroenterology Faye Reason for Consult: Positive FOBT Call Completed: No 07/14/17 20:40 Consult to Nutrition [CONS] Routine Comment: Consulting Provider: NUTRITION Reason for Dietary Consult: MST Score Consult to Net Developer Consultant [CONS] Routine Reason for SW Consult: [facility]WAS THERE FOR REHAB 07/15/17 08:15 Consult to Occupational Therapy [CONS] Routine Comment: Evaluate, develop and implement POC Reason for Consult: therapy/placement needs Consult to Physical Therapy [CONS] Routine Comment: Evaluate, develop and implement POC Reason for Consult: PT eval 07/15/17 14:01 Consult to Wound Care [CONS] Routine Reason for Consult: non healing wound to right outer heel Call Completed: No Discharging clinician: Sujata Regalado Anticipated date of discharge: 07/20/17 - Constitutional Vitals: Temp Pulse Resp BP Pulse Ox 98.5 F 70 17 122/71 96 07/20/17 11:44 07/20/17 11:44 07/20/17 11:44 07/20/17 11:44 07/20/17 11:44 General appearance: Present: A&O X 3, no acute distress, answers questions appropriately - Neck Neck exam general surgery: Present: supple, trachea midline. Absent: lymphadenopathy - Respiratory Respiratory exam: Present: CTAB. Absent: accessory muscle use, rales, rhonchi, wheezes - Cardiovascular Cardiovascular exam: Present: RRR, +S1, +S2. Absent: diastolic murmur, gallop, rubs, systolic murmur - GI/Abdominal GI/Abdominal exam: Present: normal bowel sounds, soft, no peritoneal signs. Absent: distended, tenderness - Extremities Exam Extremities exam: Present: warm, radial pulses palpable and symmetrical. Absent : calf tenderness, cyanotic, pedal edema - Neurological Exam Neurological exam: Present: alert, oriented X3, no focal deficits. Absent: facial droop, speech deficit - Skin Skin exam: Present: dry, intact - Patient Status Disposition: Transfer SNF Condition: Fair Functional capacity at discharge: uses cane/walker Overall status at discharge: patient is progressing back to baseline - Discharge Instructions Instructions: Urinary Tract Infection in Men (DC), Anemia (GEN) Follow Up With: Analilia Montero CNP [Primary Care Provider] - (Patient will follow up with [facility]CP-[facility]) Shaan Fox MD [Partnered Physician] - (in 1-2 weeks) - Diet and Activity Activity: increase activity as tolerated Diet: low fat, low cholesterol, low salt diet - VTE Documentation of Mechanical Device: Intermittent pneumatic compression device
--- NOTE | 2017-07-20 15:21 | Physician Discharge Referral ---
ExtendedCare Referral Info Provider in Charge after Transfer: PCP Institutional Level of Care: Skilled - Diagnosis (1) Acute blood loss anemia Priority: Primary Status: Acute (2) Acute encephalopathy Priority: Secondary Status: Resolved (3) C. difficile colitis Priority: Secondary Status: Acute (4) CAD (coronary artery disease) Priority: Secondary Status: Chronic (5) Chronic kidney disease, stage III (moderate) Priority: Secondary Status: Chronic (6) DVT prophylaxis Priority: Secondary Status: Acute (7) Elevated troponin Priority: Secondary Status: Acute (8) GI bleed Priority: Secondary Status: Acute (9) HTN (hypertension) Priority: Secondary Status: Chronic (10) Hypoglycemia Priority: Secondary Status: Resolved (11) UTI (urinary tract infection) Priority: Secondary Status: Acute Prognosis: Fair Aware of Diagnosis: Patient Aware of Prognosis: Patient - Transfer Medications Prescriptions: OxyCODONE/APAP 5/325 [Percocet 5/325 MG] 1 each PO Q6HR PRN 5 Days #14 tablet PRN Reason: Moderate Pain hydrOXYzine pamoate [HydrOXYzine Pamoate] 25 mg PO DAILY PRN #10 capsule PRN Reason: Anxiety metroNIDAZOLE [Flagyl] 500 mg PO TID #21 tablet Pantoprazole Sodium [Protonix] 40 mg PO BID #60 tablet. Tamsulosin [Flomax] 0.4 mg PO DAILY #30 cap.er.24h Home Medications: Isosorbide MONOnitrate (24 HR) [Imdur] 30 mg PO DAILY 04/02/16 [History] Clopidogrel [Plavix] 75 mg PO DAILY 11/12/16 [History] Gabapentin [Neurontin] 300 mg PO HS 11/12/16 [History] Ferrous Sulfate [Iron] 325 mg PO DAILY 02/13/17 [History] Cyanocobalamin (Vitamin B-12) [Vitamin B-12] 1,000 mcg SL DAILY 02/14/17 [ History] Trazodone HCl 100 mg PO HS 02/14/17 [History] Nitroglycerin [Nitrostat] 0.4 mg SL Q5M PRN 06/10/17 [History] Amlodipine Besylate 10 mg PO DAILY #0 06/29/17 [Rx] Buspirone HCl [Buspar] 7.5 mg PO BID PRN tablet 06/29/17 [Rx] Docusate [Colace] 100 mg PO BID udc 06/29/17 [Rx] Insulin LISPRO [HumaLOG] 0 units SQ TIDAC vial 06/29/17 [Rx] Venlafaxine XR (24 HR) [Effexor Xr] 150 mg PO DAILY cap.er.24h 06/29/17 [Rx] Metoprolol XL (24 HR) Succ [Toprol Xl] 200 mg PO BID 07/02/17 [History] Amiodarone [Cordarone] 200 mg PO DAILY 07/14/17 [History] Atorvastatin [Lipitor] 40 mg PO HS 07/14/17 [History] OxyCODONE/APAP 5/325 [Percocet 5/325 MG] 1 each PO Q6HR PRN 5 Days #14 tablet [Rx] Pantoprazole Sodium [Protonix] 40 mg PO BID #60 tablet.dr 07/20/17 [Rx] Silvasorb 1 appl TP DAILY tube 07/20/17 [Rx] Tamsulosin [Flomax] 0.4 mg PO DAILY #30 cap.er.24h 07/20/17 [Rx] hydrOXYzine pamoate [HydrOXYzine Pamoate] 25 mg PO DAILY PRN #10 capsule [Rx] metroNIDAZOLE [Flagyl] 500 mg PO TID #21 tablet 07/20/17 [Rx] Allergies/Adverse Reactions: 3 Allergy/AdvReac Type Severity Reaction Status Date / Time No Known Allergies Allergy Verified 02/14/17 13:39 - Respiratory Orders Smoking Cessation: Smoking cessation has been advised. For more information, call the [place] Tobacco Quit Line at 6-748-OHOX-NOW. - Ancillary Orders May consult with Dentist, Checker In, Manager Corporate Communications PRN - Advance Directives Code Status: Full Code - Mobility Orders Ambulate (per PT) - Rehabiliation Orders Rehab Potential: Fair Rehab Orders: Evaluation for Physical Therapy, Evaluation for Occupational Therapy - Diet Orders No Concentrated Sweets (diabetic diet), Cardiac CERTIFICATION: I certify that the transfer of the above named patient to an Extended Care Facility is necessary for the continuing treatment of the diagnosis listed. The above information is true and accurate reflection of patient's current condition. Confidential - Redisclosure prohibited without a patient's written consent.
[2017-07-20 15:58] VITALS: BP 106/59
[2017-07-20 17:54] LABS: Hematocrit 26.7 % (37.5-50.1); Hemoglobin 8.5 g/dL (12.9-16.9)
--- NOTE | 2017-07-21 01:55 | Electrocardiograph Report ---
[place] [id number] Test Date: 2017-07-14 Pat Name: Ike Esquivel Department: 102 Room: 2A13 Gender: M [employer]: : [id number] Requested By: Amando Figueredo Order Number: [id number] Reading MD: Marlin Deleon Measurements Intervals [place] Rate: 81 P: 24 ID: [id number] QRS: 3 QRSD: 104 T: 251 QT: 372 QTc: 410 Interpretive Statements SINUS RHYTHM PROBABLE INFERIOR MYOCARDIAL INFARCTION [35 ms Q WAVE IN II/aVF], OF INDETERMINATE AGE MODERATE T-WAVE ABNORMALITY, CONSIDER LATERAL ISCHEMIA [-0.1+ mV T WAVE IN I/aVL/V5/V6] Electronically Signed On 07-21-2017 1:53:54 EST by Marlin Deleon
== END 2017-07-20 17:36 | DRG 70 ==
LOC: 2ANU 14:56 → EMEROO 14:56 → 2ANU 20:14 → SUATTDRO 20:30
PROVIDERS: ADMIT Nurse Practitioner Family; ATTEND Internal Medicine

== ENCOUNTER 2017-08-15 16:00 | Observation (INO) ==
[2017-08-15] MEDS ORDERED: Ondansetron 4 MG/2 ML VIAL IVP ONE (16:21)
--- NOTE | 2017-08-15 16:32 | Emergency Department Note ---
Disposition Clinical Impression: Elevated troponin CKD (chronic kidney disease) Qualifiers: Chronic kidney disease stage: unspecified stage Qualified Code(s): N18.9 - Chronic kidney disease, unspecified CHF (congestive heart failure) Qualifiers: Heart failure type: unspecified Heart failure chronicity: acute Qualified Code( s): I50.9 - Heart failure, unspecified Disposition: Admitted As Inpatient Condition: Good Time of Disposition: 19:05 General Adult HPI - General Chief complaint: ED Shortness of Breath/Dyspnea Stated complaint: KAVON; abdominal distention Time Seen by Provider: 08/15/17 16:12 Source: patient Mode of arrival: ambulatory Limitations: no limitations Nursing Notes Reviewed: Yes Vital Signs Reviewed: Yes - History of Present Illness HPI Narrative: 77-year-old male with history of CABG completed in mid May presented to the emergency part chief complaint of dyspnea. Patient states that beginning of May he had a thoracentesis. Then later in the month he was seen and needed a CABG. He went to [facility] [place] assisted living for rehabilitation and was discharged from there yesterday. Since he has been home he has had worsening dyspnea. He also states he has noticed he has been retaining fluid session around his abdomen. He denies any chest pain. He also has disclosed some nausea and vomiting. He states this is due to the pressure he has on his abdomen. Denies diarrhea or abdominal pain. Pain Scale: 0 - Related Data Home Medications Medication Instructions Recorded Confirmed Isosorbide MONOnitrate (24 HR) 30 mg PO DAILY 04/02/16 07/14/17 [Imdur] Clopidogrel [Plavix] 75 mg PO DAILY 11/12/16 07/14/17 Gabapentin [Neurontin] 300 mg PO HS 11/12/16 07/14/17 Ferrous Sulfate [Iron] 325 mg PO DAILY 02/13/17 07/14/17 Cyanocobalamin (Vitamin B-12) 1,000 mcg SL DAILY 02/14/17 07/14/17 [Vitamin B-12] Trazodone HCl 100 mg PO HS 02/14/17 07/14/17 Nitroglycerin [Nitrostat] 0.4 mg SL Q5M PRN 06/10/17 07/14/17 Metoprolol XL (24 HR) Succ [Toprol 200 mg PO BID 07/02/17 07/14/17 Xl] Amiodarone [Cordarone] 200 mg PO DAILY 07/14/17 07/14/17 Atorvastatin [Lipitor] 40 mg PO HS 07/14/17 07/14/17 Previous Rx's Medication Instructions Recorded Amlodipine Besylate 10 mg PO DAILY #0 06/29/17 Buspirone HCl [Buspar] 7.5 mg PO BID PRN tablet 06/29/17 Docusate [Colace] 100 mg PO BID udc 06/29/17 Insulin LISPRO [HumaLOG] 0 units SQ TIDAC vial 06/29/17 Venlafaxine XR (24 HR) [Effexor Xr] 150 mg PO DAILY cap.er.24h 06/29/17 OxyCODONE/APAP 5/325 [Percocet 1 each PO Q6HR PRN 5 Days #14 07/20/17 5/325 MG] tablet Pantoprazole Sodium [Protonix] 40 mg PO BID #60 tablet. 07/20/17 Silvasorb 1 appl TP DAILY tube 07/20/17 Tamsulosin [Flomax] 0.4 mg PO DAILY #30 cap.er.24h 07/20/17 hydrOXYzine pamoate [HydrOXYzine 25 mg PO DAILY PRN #10 capsule 07/20/17 Pamoate] metroNIDAZOLE [Flagyl] 500 mg PO TID #21 tablet 07/20/17 Allergies Allergy/AdvReac Type Severity Reaction Status Date / Time No Known Allergies Allergy Verified 02/14/17 13:39 All systems ED: reviewed and negative except as stated. Respiratory: Reports: dyspnea Gastrointestinal: Reports: nausea, vomiting Past Medical History - Past Medical History Attestation: Yes The following information was validated with the patient. Medical history: Reports: aortic aneurysm, arthritis, coronary artery disease, diabetes, hyperlipidemia, hypertension, renal disease Surgical history: Reports: angioplasty/stent, coronary bypass (CABG), orthopedic , other, other Psychiatric history: Reports: anxiety, depression - Social History Smoking Status: Never smoker Smokeless Tobacco Status: No Alcohol use: Reports: none Drug use: Reports: none Physical Exam - General Limitations: no limitations General appearance: alert, in no apparent distress - Head Head exam: atraumatic, normocephalic, normal inspection - Eye Eye exam: Present: normal appearance. Absent: scleral icterus, conjunctival injection - ENT ENT exam: normal exam, mucous membranes moist - Neck Neck exam: Present: normal inspection, full ROM. Absent: tenderness, meningismus - Chest Chest inspection: Present: symmetric chest wall rise, other (Well-healing midline sternal incisional site). Absent: tenderness, rash - Respiratory Respiratory exam: Present: other (Decreased breath sounds throughout). Absent: respiratory distress, wheezes - Cardiovascular Cardiovascular exam: Present: regular rate, normal rhythm, normal heart sounds - Abdominal Exam Abdominal exam: Present: soft, Non-Tender, distention (per patient). Absent: guarding, rebound, rigidity - Extremities Exam Extremities exam: Present: normal inspection, full ROM - Neurological Exam Neurological exam: Present: alert, oriented X3 - Psychiatric Psychiatric exam: Present: normal affect, normal mood - Skin Skin exam: Present: warm, intact Course Course Narrative: 77 yo male presenting to the emergency Department with chief complaint dyspnea. Patient states when he lays flat makes it worse. Patient has had thoracentesis in the past. Patient also states he has not been feeling overall well with some nausea and vomiting. Provide the patient with Zofran and complete a cardiac workup including troponin, EKG, chest x-ray and basic labs. Disposition most likely will be admission but pending results. Patient is alert and oriented 3 with stable vital signs. He agrees with this plan. - Reevaluation(s) Reevaluation #1: Patient's labs show chronic kidney disease, elevated troponin at 0.09, elevated BNP at 1900. Patient is denying chest pain throughout his stay. Most likely demand ischemia. Patient is alert and oriented 3 in the room with stable vital signs. We will plan to admit the patient at this time for CHF exacerbation. I spoke with the hospitalist on-call Dr. Rivera states that the patient at this time. Vital Signs Temperature 98.6 F 08/15/17 16:03 Pulse Rate 67 08/15/17 16:03 Respiratory Rate 18 08/15/17 16:03 Blood Pressure 148/88 08/15/17 16:03 O2 Sat by Pulse Oximetry 96 08/15/17 16:03 Temperature 98.6 F 08/15/17 16:03 Pulse Rate 64 08/15/17 18:20 Respiratory Rate 15 08/15/17 18:20 Blood Pressure 156/83 08/15/17 18:05 O2 Sat by Pulse Oximetry 100 08/15/17 18:20 Oxygen Delivery Oxygen Delivery Nasal Cannula Medical Decision Making - Medical Records Medical records reviewed: Yes I reviewed the patient's medical records. - Lab Data Lab results reviewed: Yes I reviewed the patient's lab results. Result diagrams: 08/15/17 17:16 08/15/17 17:16 Lab Results 08/15/17 08/15/17 08/15/17 Range/Units 17:16 17:16 17:16 WBC 4.5 (4.3-11.1) K/mcL RBC 3.81 L (4.19-5.50) M/mcL Hgb 10.4 L (12.9-16.9) g/dL Hct 33.1 L (37.5-50.1) % MCV 86.9 (83.0-100.0) fL MCH 27.3 L (28.0-33.3) pg MCHC 31.4 L (31.6-35.5) g/dL RDW 14.5 (11.5-14.5) % Plt Count 147 (140-400) K/mcL MPV 10.1 (9.4-12.4) fL Immature Gran % 0.2 (0-4) % Seg Neutrophils % 67.1 % Lymphocytes % 24.3 % Monocytes % 7.3 % Eosinophils % 0.9 % Basophils % 0.2 % Neutrophils # 3.0 (1.6-8.9) K/mcL Lymphocytes # 1.1 (0.6-4.6) K/mcL Monocytes # 0.3 (0.0-1.3) K/mcL Eosinophils # 0.0 (0.0-0.6) K/mcL Basophils # 0.0 (0.0-0.2) K/mcL Sodium 136 (136-145) mEq/L Potassium 3.8 (3.5-5.1) mEq/L Chloride 103 (98-107) mEq/L Carbon Dioxide 26 (23-29) mEq/L BUN 18 (8-23) mg/dL Creatinine 2.06 H (0.70-1.30) mg/dL Est GFR ( Amer) 38 L (> 60) Est GFR (Non-Af Amer) 32 L (> 60) BUN/Creatinine Ratio 9 (6-26) Glucose 186 H (70-105) mg/dL Calculated Osmolality 289 (280-300) Lactic Acid 1.2 (0.5-2.2) mmol/L Calcium 8.2 L (8.6-10.3) mg/dL Total Bilirubin 0.4 (0.3-1.0) mg/dL Direct Bilirubin 0.1 (0.0-0.2) mg/dL Indirect Bilirubin 0.3 (0.0-1.2) mg/dL AST 12 L (13-39) Units/L ALT 8 (7-52) Units/L Alkaline Phosphatase 134 H (34-104) Units/L Troponin I 0.09 H* (< 0.04) ng/mL B-Natriuretic Peptide (Less than 100) pg/mL Serum Total Protein 7.2 (6.4-8.9) g/dL Albumin 2.9 L (3.5-5.7) g/dL Globulin 4.3 H (2.4-3.5) g/dL Albumin/Globulin Ratio 0.7 L (1.1-2.2) 03/18/18 Range/Units 17:16 WBC (4.3-11.1) K/mcL RBC (4.19-5.50) M/mcL Hgb (12.9-16.9) g/dL Hct (37.5-50.1) % MCV (83.0-100.0) fL MCH (28.0-33.3) pg MCHC (31.6-35.5) g/dL RDW (11.5-14.5) % Plt Count (140-400) K/mcL MPV (9.4-12.4) fL Immature Gran % (0-4) % Seg Neutrophils % % Lymphocytes % % Monocytes % % Eosinophils % % Basophils % % Neutrophils # (1.6-8.9) K/mcL Lymphocytes # (0.6-4.6) K/mcL Monocytes # (0.0-1.3) K/mcL Eosinophils # (0.0-0.6) K/mcL Basophils # (0.0-0.2) K/mcL Sodium (136-145) mEq/L Potassium (3.5-5.1) mEq/L Chloride (98-107) mEq/L Carbon Dioxide (23-29) mEq/L BUN (8-23) mg/dL Creatinine (0.70-1.30) mg/dL Est GFR ( Amer) (> 60) Est GFR (Non-Af Amer) (> 60) BUN/Creatinine Ratio (6-26) Glucose (70-105) mg/dL Calculated Osmolality (280-300) Lactic Acid (0.5-2.2) mmol/L Calcium (8.6-10.3) mg/dL Total Bilirubin (0.3-1.0) mg/dL Direct Bilirubin (0.0-0.2) mg/dL Indirect Bilirubin (0.0-1.2) mg/dL AST (13-39) Units/L ALT (7-52) Units/L Alkaline Phosphatase (34-104) Units/L Troponin I (< 0.04) ng/mL B-Natriuretic Peptide 1900 H (Less than 100) pg/mL Serum Total Protein (6.4-8.9) g/dL Albumin (3.5-5.7) g/dL Globulin (2.4-3.5) g/dL Albumin/Globulin Ratio (1.1-2.2) - Radiology Data Radiology results reviewed: Yes I reviewed the patient's radiology results. - EKG Data EKG #1 EKG attestation: Yes I reviewed and interpreted this EKG. EKG results narrative: Sinus rhythm. 69 bpm. [place] interval 151, QRS 114, QTc 422. T-wave inversion noted in V1, V2, V3. No signs of acute ST segment elevation or ischemia noted. Compared to previous EKG completed on 07/14/2017 new T-wave inversions in V1, V2, V3.
[2017-08-15 17:31] LABS: Basophils % 0.2 %; Eosinophils % 0.9 %; Hematocrit 33.1 % (37.5-50.1); Hemoglobin 10.4 g/dL (12.9-16.9); Immature Granulocytes % 0.2 % (0-4); Lymphocytes # 1.1 K/mcL (0.6-4.6); Lymphocytes % 24.3 %; Mean Corpuscular HGB Conc 31.4 g/dL (31.6-35.5); Mean Corpuscular Hemoglobin 27.3 pg (28.0-33.3); Mean Corpuscular Volume 86.9 fL (83.0-100.0); Mean Platelet Volume 10.1 fL (9.4-12.4); Monocytes # 0.3 K/mcL (0.0-1.3); Monocytes % 7.3 %; Platelet Count 147 K/mcL (140-400); Red Blood Count 3.81 M/mcL (4.19-5.50); Red Cell Distribution Width 14.5 % (11.5-14.5); Segmented Neutrophils % 67.1 %
[2017-08-15 17:49] LABS: Calcium 8.2 mg/dL (8.6-10.3); Potassium 3.8 mEq/L (3.5-5.1)
[2017-08-15 18:09] LABS: Troponin I 0.09 ng/mL (< 0.04)
--- NOTE | 2017-08-15 18:22 | Emergency Department Note ---
START Narrative - START START: I examined this patient and my medical decision-making was reviewed with the Resident Physician. I agree with the documented findings, disposition and treatment plan as described except to the extent set forth below. 77-year-old male presents emergency room for what he describes as abdominal swelling. He just went home from the snf yesterday. He had been there for rehabilitation after a CABG. He denies any chest pain. No abdominal pain. He denies any significant lower extremity leg swelling. He states he does feel like his abdomen is more swollen and distended as compared to normal. He denies any fevers. No diarrhea. Denies any vomiting at this time. Patient had a 3 month stay in the snf due to his CABG procedure No other complaints at this time. Disposition is pending but likely admission due to his increasing weakness and the fact that he lives at home and uses a walker.
[2017-08-15 18:38] LABS: Albumin 2.9 g/dL (3.5-5.7); Albumin/Globulin Ratio 0.7 (1.1-2.2); Bilirubin,Direct 0.1 mg/dL (0.0-0.2); Bilirubin,Indirect 0.3 mg/dL (0.0-1.2); Bilirubin,Total 0.4 mg/dL (0.3-1.0); Globulin 4.3 g/dL (2.4-3.5); Total Protein 7.2 g/dL (6.4-8.9)
[2017-08-15] MEDS ORDERED: Aspirin 81 MG TAB.CHEW PO ONE (18:43)
--- NOTE | 2017-08-15 19:37 | Internal Med History&Physical ---
Date of Encounter: 08/15/17 Time of Encounter: 19:32 Assessment and Plan (1) CHF (congestive heart failure) Current visit: Yes Status: Acute Acute on chronic diastolic dysfunction was EF 65% in July 2017, will give IV Lasix Qualifiers: Heart failure type: diastolic Heart failure chronicity: acute Qualified Code(s): I50.31 - Acute diastolic (congestive) heart failure (2) Elevated troponin Current visit: Yes Status: Acute Patient has CAD status post CABG in May 2017, troponin is mildly elevated. He denies chest pain but does have exertional shortness of breath. We will consult a spudder follow up troponin (3) CAD (coronary artery disease) Current visit: No Status: Chronic Continue aspirin Plavix Qualifiers: Coronary Disease-Associated Artery/Lesion type: [place] artery [place] vs. transplanted heart: [place] heart Associated angina: with unstable angina Qualified Code(s): I25.110 - Atherosclerotic heart disease of [place] coronary artery with unstable angina pectoris (4) Diabetes Current visit: No Status: Chronic Well controlled her, we will add a sliding scale Qualifiers: Diabetes mellitus type: type 2 Diabetes mellitus fdc insulin use: without parts counterman use Diabetes mellitus complication status: with kidney complications Diabetes mellitus complication detail: with microalbuminuria Qualified Code(s): E11.29 - Type 2 diabetes mellitus with other diabetic kidney complication; R80.9 - Proteinuria, unspecified (5) HTN (hypertension) Current visit: No Status: Chronic Qualifiers: Hypertension type: essential hypertension Qualified Code(s): I10 - Essential (primary) hypertension (6) HLD (hyperlipidemia) Current visit: No Status: Chronic Qualifiers: Hyperlipidemia type: pure hypercholesterolemia Qualified Code(s): E78.00 - Pure hypercholesterolemia, unspecified; E78.0 - Pure hypercholesterolemia (7) Chronic kidney disease, stage III (moderate) Current visit: No Status: Chronic CK D stages 3 creatinine 2.0 at her baseline. He follows his nephrologists Dr. Engle (8) Urinary retention Current visit: No Status: Acute Chronic urinary retention, on dwelling [place] (9) Chronic respiratory failure with hypoxia Current visit: Yes Status: Acute He is on 2 L nasal cannula at night fro CHF Internal Medicine - H&P: HPI Chief complaint: SOB Admitted From: Long-term Nursing Facility Plans for Post Hospital Care: Transfer [facility] Facility History of present illness: Mr. Esquivel is a 77 year old male who has a history of CAD status post CABG in May 2017, hypertension hyperlipidemia diabetes CK D stages 3 presented to emergency room for worsening shortness of breath and abdominal swelling for 2 days. Patient had to CABG in May 2017 and then was readmitted for upper GI bleeding in July discharged to custodial facility on July 20. Patient states that he has been doing well during rehabitation, and he noticed that his bilateral flank become swelling over last 2 days, unable to lie flat at night, more shortness of breath with exertion. He normally wears 2 L nasal cannula at night. He also c/o some nausea no vomiting, denies abdominal pain. No diarrhea or constipation. He does have chest pain when taking deep breaths or cough, pain is sharp and located to wound area. The emergency room patient was found it elevated BNP 1900, troponin 0.09 chest x-ray shows left pleural effusion. Patient is going to be admitted to the CHF exacerbation troponin elevation. CODE STATUS, I discussed CODE STATUS with patient and the his he wants to be full code his is next of kin Past Med Surg Social Fam HX - Past Medical History Medical history: aortic aneurysm, arthritis, coronary artery disease, diabetes, hyperlipidemia, hypertension, renal disease Psychiatric history: anxiety, depression - Past Surgical History Surgical History: angioplasty/stent, coronary bypass (CABG), orthopedic, other, other - Social History Smoking Status: Never smoker Smokeless Tobacco Status: No Alcohol use: none Drug use: none - Family History Father Family Member Ethnicity: Non- Living Status: Hx Family Cardiac Disorders: Yes ([place], CAD, HTN) Mother Family Member Ethnicity: Non- Living Status: Hx Family Cancer: Yes (Breast) Brother Family Member Ethnicity: Non- Living Status: Still Living Sister Family Member Ethnicity: Non- Living Status: Still Living Hx Family Endocrine Disorder: Yes (DM) Internal Medicine - H&P: Meds Isosorbide MONOnitrate (24 HR) [Imdur] 30 mg PO DAILY 04/02/16 [History] Clopidogrel [Plavix] 75 mg PO DAILY 11/12/16 [History] Gabapentin [Neurontin] 300 mg PO HS 11/12/16 [History] Ferrous Sulfate [Iron] 325 mg PO DAILY 02/13/17 [History] Cyanocobalamin (Vitamin B-12) [Vitamin B-12] 1,000 mcg SL DAILY 02/14/17 [ History] Trazodone HCl 100 mg PO HS 02/14/17 [History] Nitroglycerin [Nitrostat] 0.4 mg SL Q5M PRN 06/10/17 [History] Amlodipine Besylate 10 mg PO DAILY #0 06/29/17 [Rx] Buspirone HCl [Buspar] 7.5 mg PO BID PRN tablet 06/29/17 [Rx] Docusate [Colace] 100 mg PO BID udc 06/29/17 [Rx] Insulin LISPRO [HumaLOG] 0 units SQ TIDAC vial 06/29/17 [Rx] Venlafaxine XR (24 HR) [Effexor Xr] 150 mg PO DAILY cap.er.24h 06/29/17 [Rx] Metoprolol XL (24 HR) Succ [Toprol Xl] 200 mg PO BID 07/02/17 [History] Amiodarone [Cordarone] 200 mg PO DAILY 07/14/17 [History] Atorvastatin [Lipitor] 40 mg PO HS 07/14/17 [History] OxyCODONE/APAP 5/325 [Percocet 5/325 MG] 1 each PO Q6HR PRN 5 Days #14 tablet [Rx] Pantoprazole Sodium [Protonix] 40 mg PO BID #60 tablet.dr 07/20/17 [Rx] Silvasorb 1 appl TP DAILY tube 07/20/17 [Rx] Tamsulosin [Flomax] 0.4 mg PO DAILY #30 cap.er.24h 07/20/17 [Rx] hydrOXYzine pamoate [HydrOXYzine Pamoate] 25 mg PO DAILY PRN #10 capsule [Rx] metroNIDAZOLE [Flagyl] 500 mg PO TID #21 tablet 07/20/17 [Rx] 3 Allergy/AdvReac Type Severity Reaction Status Date / Time No Known Allergies Allergy Verified 02/14/17 13:39 All Systems PM: A 10-system review of systems was performed and is negative for pertinent findings except as documented above in the HPI. - Constitutional Vitals: Temp Pulse Resp BP Pulse Ox 98.6 F 64 15 156/83 100 08/15/17 16:03 08/15/17 18:20 08/15/17 18:20 08/15/17 18:05 08/15/17 18:20 General appearance: Present: A&O X 3, morbidly obese, pleasant, no acute distress Exam: CONSTITUTIONAL: Patient appears as an age appropriate male well developed, in no acute distress. EYES Clear sclerae, bilateral pupils are equal, reactive to light and accommodation. Extraocular movements are intact RESPIRATORY: No accessory muscle use, bilateral clear to auscultation, no wheezing, no crackles/rales. CARDIOVASCULAR: Regular heart rate, normal S1 and S2, no murmurs GASTROINTESTINAL: bowel sounds present, soft, no tenderness. No hepatosplenomegaly. No bilateral CVA tenderness MUSCULOSKELETAL: Joints in normal range of motion, no clubbing, +++ edema, no cyanosis. Bilateral peripheral pulses 2+ LYMPHATIC no lymphadenopathy in neck, groin and axilla bilaterally, no thyromegaly. NEUROLOGIC: CN II to XII are grossly intact, no focal neurological deficit. Deep tendon reflexes 2+ bilaterally. Normal light touch sensation to upper and lower extremity PSYCHIATRIC: Oriented x3, with good insight, mood is euthymic. No hallucinations or delusions. SKIN: Skin warm and dry, no rashes, no open wound. Internal Med - H&P Results - Labs CBC & Chem 7: 08/15/17 17:16 08/15/17 17:16
[2017-08-15] MEDS ORDERED: Naloxone 0.4 MG/ML INJ IVP PRN (19:49)
[2017-08-15] MEDS: Insulin LISPRO 300 UNITS/3 ML VIAL SQ SCH (21:02)
[2017-08-15] MEDS: Docusate Oral Soln 100 MG/10 ML UDC PO SCH (21:21)
[2017-08-15] MEDS: Furosemide 40 MG/4 ML VIAL IVP SCH (21:21)
[2017-08-15] MEDS: Gabapentin 300 MG CAPSULE PO SCH (21:21)
[2017-08-15] MEDS: traZODone 50 MG TABLET PO SCH (21:21)
[2017-08-15] MEDS: Cyanocobalamin (B-12) 1,000 MCG TABLET PO SCH (21:22)
[2017-08-15] MEDS: Venlafaxine XR (24 HR) 150 MG CAP.ER.24H PO SCH (21:22)
[2017-08-15] MEDS: *HR* Heparin 5,000 UNIT/ML VIAL SQ SCH (21:22)
[2017-08-16 05:49] LABS: Basophils % 0.3 %; Eosinophils # 0.1 K/mcL (0.0-0.6); Hematocrit 27.5 % (37.5-50.1); Immature Granulocytes % 0.3 % (0-4); Lymphocytes # 1.5 K/mcL (0.6-4.6); Lymphocytes % 40.1 %; Mean Corpuscular HGB Conc 30.9 g/dL (31.6-35.5); Mean Corpuscular Hemoglobin 27.1 pg (28.0-33.3); Mean Corpuscular Volume 87.6 fL (83.0-100.0); Mean Platelet Volume 10.3 fL (9.4-12.4); Monocytes # 0.4 K/mcL (0.0-1.3); Monocytes % 9.7 %; Neutrophils # 1.7 K/mcL (1.6-8.9); Platelet Count 106 K/mcL (140-400); Red Blood Count 3.14 M/mcL (4.19-5.50); Red Cell Distribution Width 14.6 % (11.5-14.5); Segmented Neutrophils % 46.6 %
[2017-08-16 05:50] LABS: Hemoglobin 8.5 g/dL (12.9-16.9)
[2017-08-16 06:11] LABS: Albumin 2.4 g/dL (3.5-5.7); Albumin/Globulin Ratio 0.8 (1.1-2.2); Bilirubin,Total 0.3 mg/dL (0.3-1.0); Calcium 7.8 mg/dL (8.6-10.3); Chol/HDL Ratio 2.2 (0-4.9); Globulin 3.2 g/dL (2.4-3.5); Total Protein 5.6 g/dL (6.4-8.9)
[2017-08-16] MEDS: *HR* Heparin 5,000 UNIT/ML VIAL SQ SCH ×3 (06:18→21:34)
[2017-08-16] MEDS ORDERED: D5% in Water 1,000 ML IVC PRN (07:45)
[2017-08-16] MEDS ORDERED: Dextrose Gel 15 GM/37.5 ML TUBE PO PRN ×2 (07:45)
[2017-08-16] MEDS ORDERED: *HR* Dextrose 50 % in Water (Syg) 50 ML SYRINGE IVP PRN (07:45)
[2017-08-16] MEDS ORDERED: Insulin LISPRO 300 UNITS/3 ML VIAL SQ SCH ×2 (07:45→21:00)
[2017-08-16] MEDS ORDERED: hydrOXYzine pamoate 25 MG CAPSULE PO PRN (08:08)
[2017-08-16] MEDS ORDERED: Nitroglycerin 0.4 MG TAB.SUBL SL PRN (08:08)
--- NOTE | 2017-08-16 08:59 | Nephrology Consult Note ---
Date of Encounter: 08/16/17 Time of Encounter: 08:30 Assessment and Plan (1) CKD (chronic kidney disease) stage 4, GFR 15-29 ml/min Current Visit: No Status: Chronic Exac. acute on chronic diastolic CHF, active diuresis. Known CKD 4 in setting of DM II, HTN and chronic NSAID use and recurrent bladder neck obstruction with a chronic england catheter. Baseline creat 1.9-2.5. Today creat 2.13. Documented urine output for today 1500cc. Will continue to monitor. Avoid neprotoxins, I&O' s. (2) Urinary hesitancy due to benign prostatic hyperplasia Current Visit: No Status: Acute (3) CHF (congestive heart failure) Current Visit: Yes Status: Acute Qualifiers: Heart failure type: diastolic Heart failure chronicity: acute Qualified Code(s): I50.31 - Acute diastolic (congestive) heart failure History of Present Illness - Reason for Consult Chronic Kidney Disease - History of Present Illness Mr. Esquivel is a 77 year old male with known CKD 4, known to practice, in setting of DM II, HTN and chronic NSAID use and recurrent bladder neck obstruction with a chronic england catheter. Baseline creat 1.9-2.5. Other PMH- aortic aneurysm, arthritis, coronary artery disease, diabetes, hyperlipidemia, hypertension, renal disease, angioplasty/stent, coronary bypass (CABG), orthopedic, anxiety, depression. Mr. Esquivel had been residing in nursing facility for rehab following CABG mid May. He had indwelling england catheter on discharge for chronic bladder outlet obstruction. He failed voiding trial at nursing facility and england catheter was reinserted. He states he has F/U with [facility] since and catheter left in place. Mr. Brownlee presented yesterday after a one day discharge home from nursing facility with complaints of dyspnea and orthostatic dyspnea. He states he had noticed fluid retention around mid abdomen and in LE. In ER, BNP 1900, troponin 0.09, creat 2.06, chest x-ray shows left pleural effusion. He was admitted with acute on chronic diastolic dysfunction, EF 65% in July 2017. He was given IV Lasix. Currently patient is at his baseline creatinine. Nephrology asked to be on board in light of active diuresis. Today patient states breathing much easier, abdomen and LE less swollen. Creat 2.13. Documented urine output for today 1500cc. Past Med Surg Social Fam HX - Past Medical History Medical history: aortic aneurysm, arthritis, coronary artery disease, diabetes, hyperlipidemia, hypertension, renal disease Psychiatric history: anxiety, depression - Past Surgical History Surgical History: angioplasty/stent, coronary bypass (CABG), orthopedic, other, other - Social History Smoking Status: Never smoker Smokeless Tobacco Status: No Alcohol use: none Drug use: none - Family History Father Family Member Ethnicity: Non- Living Status: Hx Family Cardiac Disorders: Yes (OK, CAD, HTN) Mother Family Member Ethnicity: Non- Living Status: Hx Family Cancer: Yes (Breast) Brother Family Member Ethnicity: Non- Living Status: Still Living Sister Family Member Ethnicity: Non- Living Status: Still Living Hx Family Endocrine Disorder: Yes (DM) Medications and Allergies Isosorbide MONOnitrate (24 HR) [Imdur] 30 mg PO DAILY 04/02/16 [History] Clopidogrel [Plavix] 75 mg PO DAILY 11/12/16 [History] Gabapentin [Neurontin] 300 mg PO HS 11/12/16 [History] Ferrous Sulfate [Iron] 325 mg PO DAILY 02/13/17 [History] Cyanocobalamin (Vitamin B-12) [Vitamin B-12] 1,000 mcg SL DAILY 02/14/17 [ History] Trazodone HCl 100 mg PO HS 02/14/17 [History] Nitroglycerin [Nitrostat] 0.4 mg SL Q5M PRN 06/10/17 [History] Amlodipine Besylate 10 mg PO DAILY #0 06/29/17 [Rx] Buspirone HCl [Buspar] 7.5 mg PO BID PRN tablet 06/29/17 [Rx] Docusate [Colace] 100 mg PO BID udc 06/29/17 [Rx] Insulin LISPRO [HumaLOG] 0 units SQ TIDAC vial 06/29/17 [Rx] Venlafaxine XR (24 HR) [Effexor Xr] 150 mg PO DAILY cap.er.24h 06/29/17 [Rx] Metoprolol XL (24 HR) Succ [Toprol Xl] 200 mg PO BID 07/02/17 [History] Amiodarone [Cordarone] 200 mg PO DAILY 07/14/17 [History] Atorvastatin [Lipitor] 40 mg PO HS 07/14/17 [History] OxyCODONE/APAP 5/325 [Percocet 5/325 MG] 1 each PO Q6HR PRN 5 Days #14 tablet [Rx] Pantoprazole Sodium [Protonix] 40 mg PO BID #60 tablet. 07/20/17 [Rx] Silvasorb 1 appl TP DAILY tube 07/20/17 [Rx] Tamsulosin [Flomax] 0.4 mg PO DAILY #30 cap.er.24h 07/20/17 [Rx] hydrOXYzine pamoate [HydrOXYzine Pamoate] 25 mg PO DAILY PRN #10 capsule [Rx] metroNIDAZOLE [Flagyl] 500 mg PO TID #21 tablet 07/20/17 [Rx] 3 Allergy/AdvReac Type Severity Reaction Status Date / Time No Known Allergies Allergy Verified 02/14/17 13:39 Review of Systems All Systems: reviewed and no additional remarkable complaints except as stated Exam - Vital Signs Vital signs: Initial Vital Signs Temp Pulse Resp BP Pulse Ox 98.6 F 67 18 148/88 96 08/15/17 16:03 08/15/17 16:03 08/15/17 16:03 08/15/17 16:03 08/15/17 16:03 Vital Signs - Last 8 Hours Temp Pulse Resp BP Pulse Ox 08/16/17 07:08 98.7 F 66 16 161/76 99 08/16/17 07:02 98.7 F 66 16 161/76 99 08/16/17 04:11 97.7 F 62 16 123/67 99 Intake and Output 08/15/17 08/16/17 08/16/17 23:59 07:59 15:59 Intake Total 0 / 0 Output Total 1500 / 1500 Balance -1500 / -1500 0 / 0 Intake: Oral 0 / 0 Output: Urine 0 / 0 Catheter 1500 / 1500 Other: Meal Breakfast Percent of Meal Consumed 0% # Bowel Movements 0 Weight 97.296 kg Blood Glucose* 151 97 Patient Weight 08/16/17 23:59 Weight 97.296 kg - General Appearance General appearance: well-developed, well-nourished, appears started age EENT: mucous membranes moist Neck: no JVD Respiratory: clear Cardiology: edema, regular rate, regular rhythm Additional Comments: mild pitting LE Gastrointestinal: normoactive bowel sounds, no tenderness Integumentary: warm and dry Neurologic: alert and oriented x3 Results - Lab Results 08/16/17 04:49 08/16/17 04:49 Most recent lab results Calcium 7.8 mg/dL (8.6-10.3) L 08/16/17 04:49 Phosphorus 4.0 mg/dL (2.7-4.5) 08/16/17 04:49 Magnesium 2.0 mg/dL (1.6-2.6) 08/16/17 04:49 Consult Discharge Plan - Plan Referrals: Analilia Montero, STUCCO MASON [Primary Care Provider] -
--- NOTE | 2017-08-16 11:40 | Cardiology Consult Note ---
Date of Encounter: 08/16/17 Time of Encounter: 08:30 Assessment and Plan (1) Elevated troponin Current Visit: Yes Status: Acute Adynamic troponin elevation. Likely demand ischemia in the setting of CHF and CKD stage III. Denies chest pain. Check TTE. (2) CAD (coronary artery disease) Current Visit: No Status: Chronic [facility] 06/10/17 showed severe three vessel CAD. EF 65%. Underwent CABG x3 06/27/17. (CHEN-LAD, SVG-DX, SVG-PDA). Continue medical management. Qualifiers: Coronary Disease-Associated Artery/Lesion type: elim ira artery Solomon vs. transplanted heart: elim ira heart Associated angina: with unstable angina Qualified Code(s): I25.110 - Atherosclerotic heart disease of elim ira coronary artery with unstable angina pectoris (3) S/P CABG x 3 Current Visit: No Status: Acute Continue asa, statin, and bb. (4) CHF (congestive heart failure) Current Visit: Yes Status: Acute Acute on chronic systolic CHF. [id number]. CXR shows persistent left pleural effusion and atelectasis. Symptoms Improved after IV diuresis. Last TTE 01/2017 showed preserved EF and mild diastolic dysfunction. Repeat TTE. Last TTE prior to CABG. Will need low dose maintenance lasix at discharge. CHF teaching given. Low sodium diet. Daily weights. Qualifiers: Heart failure type: diastolic Heart failure chronicity: acute Qualified Code(s): I50.31 - Acute diastolic (congestive) heart failure (5) Atrial fibrillation Current Visit: Yes Status: Acute post operative afib per documentation. Currently NSR. On Amiodarone. Will consider discontinuing. Qualifiers: Atrial fibrillation type: unspecified Qualified Code(s): I48.91 - Unspecified atrial fibrillation Discussion w patient/family: The assessment and plan as outlined above was discussed with the patient and/or family members who expressed understanding and agreement. All questions were answered. Thank you for involving us in the care of your patient. Please call with any questions. History of Present Illness Consult date: 08/16/17 Requesting physician: Ananth Kendrick Consult reason: Elevated troponin Chief complaint: SOB and BLE edema History of present illness: Mr. Esquivel is a 77 year old male with a history of CABGx3 07/2017, HTN, HLD, and CKD stage III, and diastolic CHF who presents with SOB and BLE increasing over one day. After his CABG he had a complicated stay due to post-operative leeding requiring clot evacuation, atrial fibrillation with RVR, and urinary retention resulting in chronic england catheter. He was re-hospitalized for confusion and neck fracture after fall shortly after. He was discharged home from [facility] last wednesday. On Wednesday he became increasingly SOB and developed BLE edema. C/o orthopnea. He denies chest pain. Cardiology consulted for elevated troponin up tp 0.09. He was given IV lasix and reports symptoms have resolved. He denies problems with england catheter draining. Past Med Surg Social Fam HX - Past Medical History Medical history: aortic aneurysm, arthritis, atrial fibrillation, coronary artery disease, diabetes, hyperlipidemia, hypertension, renal disease Psychiatric history: anxiety, depression - Past Surgical History Surgical History: angioplasty/stent, coronary bypass (CABG), orthopedic, other, other - Social History Smoking Status: Never smoker Smokeless Tobacco Status: No Alcohol use: none Drug use: none - Family History Father Family Member Ethnicity: Non- Living Status: Hx Family Cardiac Disorders: Yes (IA, CAD, HTN) Mother Family Member Ethnicity: Non- Living Status: Hx Family Cancer: Yes (Breast) Brother Family Member Ethnicity: Non- Living Status: Still Living Sister Family Member Ethnicity: Non- Living Status: Still Living Hx Family Endocrine Disorder: Yes (DM) Medications and Allergies Isosorbide MONOnitrate (24 HR) [Imdur] 30 mg PO DAILY 04/02/16 [History] Clopidogrel [Plavix] 75 mg PO DAILY 11/12/16 [History] Gabapentin [Neurontin] 300 mg PO HS 11/12/16 [History] Ferrous Sulfate [Iron] 325 mg PO DAILY 02/13/17 [History] Cyanocobalamin (Vitamin B-12) [Vitamin B-12] 1,000 mcg SL DAILY 02/14/17 [ History] Trazodone HCl 100 mg PO HS 02/14/17 [History] Nitroglycerin [Nitrostat] 0.4 mg SL Q5M PRN 06/10/17 [History] Amlodipine Besylate 10 mg PO DAILY #0 06/29/17 [Rx] Buspirone HCl [Buspar] 7.5 mg PO BID PRN tablet 06/29/17 [Rx] Docusate [Colace] 100 mg PO BID udc 06/29/17 [Rx] Insulin LISPRO [HumaLOG] 0 units SQ TIDAC vial 06/29/17 [Rx] Venlafaxine XR (24 HR) [Effexor Xr] 150 mg PO DAILY cap.er.24h 06/29/17 [Rx] Metoprolol XL (24 HR) Succ [Toprol Xl] 200 mg PO BID 07/02/17 [History] Amiodarone [Cordarone] 200 mg PO DAILY 07/14/17 [History] Atorvastatin [Lipitor] 40 mg PO HS 07/14/17 [History] OxyCODONE/APAP 5/325 [Percocet 5/325 MG] 1 each PO Q6HR PRN 5 Days #14 tablet [Rx] Pantoprazole Sodium [Protonix] 40 mg PO BID #60 tablet.dr 07/20/17 [Rx] Silvasorb 1 appl TP DAILY tube 07/20/17 [Rx] Tamsulosin [Flomax] 0.4 mg PO DAILY #30 cap.er.24h 07/20/17 [Rx] hydrOXYzine pamoate [HydrOXYzine Pamoate] 25 mg PO DAILY PRN #10 capsule [Rx] 3 Allergy/AdvReac Type Severity Reaction Status Date / Time No Known Allergies Allergy Verified 02/14/17 13:39 All Systems Review: The remainder of the systems were reviewed and are negative Physical Examination Vital Signs, Last 4 Hours Temp Pulse Resp BP Pulse Ox 08/16/17 11:10 98.8 F 64 16 151/83 96 General: Conversant, No Apparent Distress HEENT: Atraumatic, Normocephaly, Mucus Membranes Moist Neck: No JVD, Normal carotid pulses Cardiac: Reg Rate and Rhythm, Normal S1 and S2, Other (2/6 systolic murmur) Lungs: Normal Breath Sounds, No Wheeze, Rales, Rhonchi, Other (diminished bases) Neuro: Alert and responsive, No focal deficits noted Abdomen: Soft, Non-Tender Skin: No rashes noted on visualized skin Musculoskeletal: No Chest Wall Tenderness Extremities: No Clubbing, No Cyanosis, Normal Pulses, Other (1+ ankle edema) Results 08/16/17 04:49 08/16/17 04:49 Lab Results 08/15/17 08/16/17 08/16/17 23:10 04:49 04:49 WBC 3.6 L Hgb 8.5 L D Hct 27.5 L Plt Count 106 L Sodium Potassium Chloride Carbon Dioxide BUN Creatinine Glucose Calcium Magnesium Total Bilirubin AST ALT Alkaline Phosphatase Troponin I 0.09 H* 0.09 H* B-Natriuretic Peptide 08/16/17 08/16/17 04:49 04:49 WBC Hgb Hct Plt Count Sodium 139 Potassium 4.0 Chloride 104 Carbon Dioxide 31 H BUN 17 Creatinine 2.13 H Glucose 96 Calcium 7.8 L Magnesium 2.0 Total Bilirubin 0.3 AST 10 L ALT 6 L Alkaline Phosphatase 109 H Troponin I B-Natriuretic Peptide 1538 H - Imaging and Cardiology Echo: report reviewed Cardiac cath: report reviewed - EKG Interpretation EKG results cardiology: personally reviewed (SR with no acute ST changes) Consult Discharge Plan - Plan Referrals: Analilia Montero, CLINICAL NURSE [Primary Care Provider] -
[2017-08-16] MEDS: *HR* OxyCODONE/APAP 5/325 TABLET PO PRN ×2 (11:55→21:34)
[2017-08-16] MEDS: Furosemide 40 MG/4 ML VIAL IVP SCH (11:55)
[2017-08-16] MEDS: Venlafaxine XR (24 HR) 150 MG CAP.ER.24H PO SCH (11:56)
[2017-08-16] MEDS: Cyanocobalamin (B-12) 1,000 MCG TABLET PO SCH (11:56)
[2017-08-16] MEDS: Metoprolol XL (24 HR) Succ 50 MG TAB.ER.24H PO SCH ×2 (11:56→21:34)
[2017-08-16] MEDS: *HR* Amiodarone 200 MG TABLET PO SCH (11:56)
[2017-08-16] MEDS: Docusate Oral Soln 100 MG/10 ML UDC PO SCH ×2 (11:56→21:33)
[2017-08-16] MEDS: amLODIPine 5 MG TABLET PO SCH (11:56)
[2017-08-16] MEDS: Insulin LISPRO 300 UNITS/3 ML VIAL SQ SCH ×2 (12:12→17:37)
--- NOTE | 2017-08-16 16:22 | Internal Med Progress Note ---
Date of Encounter: 08/16/17 Time of Encounter: 09:00 - Assessment and plan (1) Diastolic CHF, acute on chronic Current Visit: Yes Status: Acute Assessment and plan: His [facility] 06/10/17 showed severe three vessel CAD. EF 65% TTE 01/2017 showed preserved EF and mild diastolic dysfunction Will repeat 2 D Echo Symptoms improved today will switch to PO Lasix today cont close monitoring (2) S/P CABG x 3 Current Visit: No Status: Acute Assessment and plan: resumed all home meds (3) Chronic kidney disease, stage III (moderate) Current Visit: No Status: Chronic Assessment and plan: slightly elevated Cr than baseline cont close monitoring due to diuresis Nephro consulted (4) Diabetes Current Visit: No Status: Chronic Assessment and plan: on ISS + ADA diet Qualifiers: Diabetes mellitus type: type 2 Diabetes mellitus half-way insulin use: without 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 use Diabetes mellitus complication status: with kidney complications Diabetes mellitus complication detail: with microalbuminuria Qualified Code(s): E11.29 - Type 2 diabetes mellitus with other diabetic kidney complication; R80.9 - Proteinuria, unspecified (5) HLD (hyperlipidemia) Current Visit: No Status: Chronic Assessment and plan: on statin Qualifiers: Hyperlipidemia type: pure hypercholesterolemia Qualified Code(s): E78.00 - Pure hypercholesterolemia, unspecified; E78.0 - Pure hypercholesterolemia (6) HTN (hypertension) Current Visit: No Status: Chronic Assessment and plan: stable and well cntrolled noticed on high dose of Metoprolol .. unclear wether he was on that due to A fib or uncontrolled BP Asked the pt to check with PCP to cut back on Metoprolol dose Qualifiers: Hypertension type: essential hypertension Qualified Code(s): I10 - Essential (primary) hypertension (7) Paroxysmal A-fib Current Visit: Yes Status: Acute Assessment and plan: rate controlled with Metoprolol and Amiodarone not on any anti coag will defer to card about anti coag options (8) Depression Current Visit: Yes Status: Acute Assessment and plan: Pt requested to inc his Buspar to 15mg PO BID.. since he feels more depressed lately so changed his home Buspar to 15mg BID Qualifiers: Depression Type: reactive depression Qualified Code(s): F32.9 - Major depressive disorder, single episode, unspecified - Subjective Interval history: Mr. Esquivel is a 77 year old male who has a history of CAD status post CABG in May 2017, hypertension hyperlipidemia diabetes CK D stages 3 presented to emergency room for worsening shortness of breath and abdominal swelling for 2 days. Patient had to CABG in May 2017 and then was readmitted for upper GI bleeding in July discharged to [facility] facility on July 20. Pt was admitted in the hospital and started him on IV diuresis. Pt is alert, awake and O x 3. States he is feeling lot better today. Denied any CP - Constitutional Vitals: Temp Pulse Resp BP Pulse Ox 98.2 F 61 18 121/66 97 08/16/17 15:41 08/16/17 15:41 08/16/17 15:41 08/16/17 15:41 08/16/17 15:41 General appearance: Present: A&O X 3, morbidly obese, pleasant, no acute distress - Head Head exam: Present: atraumatic, normal inspection - Neck Neck exam general surgery: Present: supple - Respiratory Respiratory exam: Present: decreased breath sounds. Absent: rales, respiratory distress, rhonchi, wheezes - Cardiovascular Cardiovascular exam: Present: RRR, +S1, +S2. Absent: tachycardia - GI/Abdominal GI/Abdominal exam: Present: normal bowel sounds, soft. Absent: rebound, rigid, tenderness - Extremities Exam Extremities exam: Present: pedal edema (1+). Absent: calf tenderness, tenderness - Back Exam Back exam: Absent: CVA tenderness (L), CVA tenderness (R) - Neurological Exam Neurological exam: Present: alert, oriented X3 - Psychiatric Psychiatric exam: Present: normal affect, normal mood Internal Medicine: Result - Labs CBC & Chem 7: 08/16/17 04:49 08/16/17 04:49 Labs: Short CBC 08/16/17 Range/Units 04:49 WBC 3.6 L (4.3-11.1) K/mcL Hgb 8.5 L D (12.9-16.9) g/dL Hct 27.5 L (37.5-50.1) % Plt Count 106 L (140-400) K/mcL Neutrophils # 1.7 (1.6-8.9) K/mcL BMP 08/16/17 04:49 Sodium 139 Potassium 4.0 Chloride 104 Carbon Dioxide 31 H BUN 17 Creatinine 2.13 H Glucose 96 Calcium 7.8 L Cardiac Enzymes 08/15/17 08/16/17 08/16/17 Range/Units 23:10 04:49 11:07 Troponin I 0.09 H* 0.09 H* 0.09 H* (< 0.04) ng/mL Liver Function 08/16/17 Range/Units 04:49 Total Bilirubin 0.3 (0.3-1.0) mg/dL AST 10 L (13-39) Units/L ALT 6 L (7-52) Units/L Alkaline Phosphatase 109 H (34-104) Units/L Albumin 2.4 L (3.5-5.7) g/dL Consult Discharge Plan - Plan Referrals: Analilia Montero, [employer] [Primary Care Provider] -
[2017-08-16] MEDS: Furosemide 40 MG TABLET PO SCH (17:31)
[2017-08-16] MEDS: Silvasorb 44.4 ML TUBE TP SCH (18:33)
[2017-08-16] MEDS: Gabapentin 300 MG CAPSULE PO SCH (21:34)
[2017-08-16] MEDS: traZODone 50 MG TABLET PO SCH (21:34)
[2017-08-17] MEDS: *HR* Heparin 5,000 UNIT/ML VIAL SQ SCH (06:11)
[2017-08-17] MEDS: Insulin LISPRO 300 UNITS/3 ML VIAL SQ SCH ×2 (07:39→12:04)
--- NOTE | 2017-08-17 07:54 | Nephrology Progress Note ---
Date of Encounter: 08/17/17 Time of Encounter: 07:52 - Assessment and Plan (1) CKD (chronic kidney disease) stage 4, GFR 15-29 ml/min Current Visit: No Status: Chronic Patient has stage IV chronic kidney disease. He is stable in the setting of acute diastolic congestive heart failure. He is tolerating the diuresis and his symptoms have improved. We will continue to monitor his renal function while he is here in the hospital. (2) Urinary retention Current Visit: No Status: Acute (3) Diastolic CHF, acute on chronic Current Visit: Yes Status: Acute (4) Paroxysmal A-fib Current Visit: Yes Status: Acute Subjective Interval history: The patient reports she is feeling better. His shortness of breath has improved. He was able to lie flat in bed during the night. He does not report any edema. Renal function is stable with a creatinine of 2.13. Objective - Vital Signs Vital signs: Vital Signs Temp Pulse Resp BP Pulse Ox 08/17/17 07:02 97.8 F 60 16 147/76 98 08/17/17 05:02 99.1 F 83 17 128/66 95 08/17/17 00:40 98.7 F 61 17 142/82 97 08/16/17 21:13 99.1 F 64 17 132/78 97 08/16/17 15:41 98.2 F 61 18 121/66 97 08/16/17 11:10 98.8 F 64 16 151/83 96 Intake and Output 08/16/17 08/16/17 08/17/17 15:59 23:59 07:59 Intake Total 120 / 120 120 / 120 Output Total 1200 / 1200 800 / 800 1100 / 1100 Balance -1080 / -1080 -680 / -680 -1100 / -1100 Intake: Oral 120 / 120 120 / 120 Output: Urine 1200 / 1200 800 / 800 Catheter 1100 / 1100 Other: Meal Lunch Lunch Percent of Meal Consumed 85% 70% # Bowel Movements 0 0 0 Weight 95.453 kg Blood Glucose* 149 110 83 Patient Weight 08/17/17 23:59 Weight 95.453 kg - General Appearance Exam: Patient is alert and oriented. He is in no acute distress. Lungs diminished breath sounds otherwise clear. Heart regular rate and rhythm. Abdomen is benign. There is no lower extremity swelling. - Lab 08/16/17 04:49 08/16/17 04:49 Most recent lab results Calcium 7.8 mg/dL (8.6-10.3) L 08/16/17 04:49 Phosphorus 4.0 mg/dL (2.7-4.5) 08/16/17 04:49 Magnesium 2.0 mg/dL (1.6-2.6) 08/16/17 04:49 Consult Discharge Plan - Plan Referrals: Analilia Montero, NÉSTOR [Primary Care Provider] -
[2017-08-17] MEDS ORDERED: Perflutren Lipid Microsphere 1.3 ML in 0.9 % Sodium Chloride 8.7 ML IVP ONE (08:59)
[2017-08-17] MEDS ORDERED: Perflutren Lipid Microsphere 2 ML VIAL ONE (09:02)
[2017-08-17] MEDS: Cyanocobalamin (B-12) 1,000 MCG TABLET PO SCH (09:20)
[2017-08-17] MEDS: Venlafaxine XR (24 HR) 150 MG CAP.ER.24H PO SCH (09:20)
[2017-08-17] MEDS: *HR* Amiodarone 200 MG TABLET PO SCH (09:20)
[2017-08-17] MEDS: Furosemide 40 MG TABLET PO SCH (09:21)
[2017-08-17] MEDS: Metoprolol XL (24 HR) Succ 50 MG TAB.ER.24H PO SCH (09:21)
[2017-08-17] MEDS: amLODIPine 5 MG TABLET PO SCH (09:21)
[2017-08-17] MEDS: Silvasorb 44.4 ML TUBE TP SCH (09:21)
[2017-08-17] MEDS: Docusate Oral Soln 100 MG/10 ML UDC PO SCH (09:21)
--- NOTE | 2017-08-17 10:14 | Discharge Summary ---
Orders not resulted at time of discharge: Pending orders 08/17/17 10:02 BMP [Basic Metabolic Panel] Stat Complete Blood Count [HEME] Stat Magnesium Stat 08/17/17 11:41 EV echocardiogram w enhance Routine 08/18/17 04:00 BMP [Basic Metabolic Panel] AM 0400 Complete Blood Count [HEME] AM 0400 Magnesium AM 0400 Date of Encounter: 08/17/17 Time of Encounter: 10:12 - Discharge Diagnosis (1) Diastolic CHF, acute on chronic Priority: Primary Status: Acute (2) Chronic kidney disease Priority: Secondary Status: Acute Qualifiers: Chronic kidney disease stage: unspecified stage Qualified Code(s): N18.9 - Chronic kidney disease, unspecified (3) Paroxysmal A-fib Priority: Secondary Status: Acute (4) Hypokalemia Priority: Primary Status: Acute (5) S/P CABG x 3 Priority: Secondary Status: Acute (6) CAD (coronary artery disease) Priority: Secondary Status: Chronic Qualifiers: Coronary Disease-Associated Artery/Lesion type: [place] artery [place] vs. transplanted heart: [place] heart Associated angina: with unstable angina Qualified Code(s): I25.110 - Atherosclerotic heart disease of [place] coronary artery with unstable angina pectoris (7) HLD (hyperlipidemia) Priority: Secondary Status: Chronic Qualifiers: Hyperlipidemia type: pure hypercholesterolemia Qualified Code(s): E78.00 - Pure hypercholesterolemia, unspecified; E78.0 - Pure hypercholesterolemia (8) HTN (hypertension) Priority: Secondary Status: Chronic Qualifiers: Hypertension type: essential hypertension Qualified Code(s): I10 - Essential (primary) hypertension Hospital course: Mr. Esquivel is a 77 year old male who has a history of CAD status post CABG in May 2017, hypertension hyperlipidemia diabetes CKD stages 4 presented to emergency room for worsening shortness of breath and abdominal swelling for 2 days. Patient had to CABG in May 2017 and then was readmitted for upper GI bleeding in July and discharged to half-way facility on July 20. Patient states that he has been doing well during rehabitation, and he noticed bilateral flank swelling over last 2 days, inability to lay flat at night, more shortness of breath with exertion. He normally wears 2 L nasal cannula at night. In the ED, the patient was found to have elevated BNP 1900, troponin 0.09 and chest x-ray showed left pleural effusion. He was admitted for an acute exacerbation of the kake failure. Given the elevated troponins cardiology were consulted and echocardiogram done showed no wall motion abnormalities. The patient was diuresed IV. Given his chronic kidney disease, the patient was discharged on Lasix to be used on an as-needed basis based on weight. The patient was told to use his Lasix only on days for which he weighs more than 114 pounds and to take potassium supplements on those days. Nephrology did follow along given his chronic kidney disease and his creatinine remained around baseline despite diuresis. He was stable for discharge on 2017 - Time Spent with Patient Total time spent providing and/or coordinating discharge services: Greater than 30 minutes - Discharge Medications Prescriptions: Furosemide [Lasix] 40 mg PO DAILY PRN #30 tablet PRN Reason: Edema Potassium Chloride 20 meq PO DAILY PRN #30 tab.er.prt PRN Reason: hypokalemia Home Medications: Isosorbide MONOnitrate (24 HR) [Imdur] 30 mg PO DAILY 04/02/16 [History] Clopidogrel [Plavix] 75 mg PO DAILY 11/12/16 [History] Gabapentin [Neurontin] 300 mg PO HS 11/12/16 [History] Ferrous Sulfate [Iron] 325 mg PO DAILY 02/13/17 [History] Cyanocobalamin (Vitamin B-12) [Vitamin B-12] 1,000 mcg SL DAILY 02/14/17 [ History] Trazodone HCl 100 mg PO HS 02/14/17 [History] Nitroglycerin [Nitrostat] 0.4 mg SL Q5M PRN 06/10/17 [History] Amlodipine Besylate 10 mg PO DAILY #0 06/29/17 [Rx] Buspirone HCl [Buspar] 7.5 mg PO BID PRN tablet 06/29/17 [Rx] Docusate [Colace] 100 mg PO BID udc 06/29/17 [Rx] Insulin LISPRO [HumaLOG] 0 units SQ TIDAC vial 06/29/17 [Rx] Venlafaxine XR (24 HR) [Effexor Xr] 150 mg PO DAILY cap.er.24h 06/29/17 [Rx] Metoprolol XL (24 HR) Succ [Toprol Xl] 200 mg PO BID 07/02/17 [History] Amiodarone [Cordarone] 200 mg PO DAILY 07/14/17 [History] Atorvastatin [Lipitor] 40 mg PO HS 07/14/17 [History] OxyCODONE/APAP 5/325 [Percocet 5/325 MG] 1 each PO Q6HR PRN 5 Days #14 tablet [Rx] Pantoprazole Sodium [Protonix] 40 mg PO BID #60 tablet. 07/20/17 [Rx] Silvasorb 1 appl TP DAILY tube 07/20/17 [Rx] Tamsulosin [Flomax] 0.4 mg PO DAILY #30 cap.er.24h 07/20/17 [Rx] hydrOXYzine pamoate [HydrOXYzine Pamoate] 25 mg PO DAILY PRN #10 capsule [Rx] Furosemide [Lasix] 40 mg PO DAILY PRN #30 tablet 08/17/17 [Rx] Potassium Chloride 20 meq PO DAILY PRN #30 tab.er.prt 08/17/17 [Rx] Allergies/Adverse Reactions: 3 Allergy/AdvReac Type Severity Reaction Status Date / Time No Known Allergies Allergy Verified 02/14/17 13:39 Date of admission: 08/15/17 18:58 Primary care physician: Analilia Montero CNP Consults: 08/15/17 19:51 Consult to Physician [CONS] Routine Consulting Provider: Jo Bah Reason for Consult: CAD elevated trop Call Completed: No 08/16/17 08:11 Consult to Nephrology [CONS] Routine Consulting Provider: [facility] Reason for Consult: LATIA with CKD-3 Time Notified: 08:12 Call Completed: Yes 08/16/17 08:37 Consult to Nurse Navigator [CONS] Routine Comment: CHF Consult to Paper Twister [CONS] Routine Reason for SW Consult: rtn Signature 08/17/17 10:05 Consult to Occupational Therapy [CONS] Routine Comment: Evaluate, develop and implement POC Reason for Consult: therapy/placement needs Does patient have active BEDREST order?: No Is patient medically & hemodynamically stable?: Yes Consult to Physical Therapy [CONS] Routine Comment: Evaluate, develop and implement POC Reason for Consult: PT eval Does patient have active BEDREST order?: No Is patient medically & hemodynamically stable?: Yes - Constitutional Vitals: Temp Pulse Resp BP Pulse Ox 97.8 F 60 16 147/76 98 08/17/17 07:02 08/17/17 07:02 08/17/17 07:02 08/17/17 07:02 08/17/17 07:02 General appearance: Present: A&O X 3, morbidly obese, pleasant, no acute distress Exam: GEN: NAD CVS: RRR. S1, S2, No m/r/g RESP: CTAB ABD: Soft, NT, ND, +BS EXT: No edema. 2+ DP. No rashes NEURO: Nonfocal - Patient Status Disposition: Home, Self-Care Condition: Fair Overall status at discharge: patient is progressing back to baseline - Discharge Instructions Instructions: Furosemide (By mouth), Heart Failure (DC) Follow Up With: Analilia Montero LEAF[employer] DISTRIBUTOR [Primary Care Provider] - 08/23/17 1:00 pm () - Diet and Activity Activity: increase activity as tolerated Diet: low salt diet
[2017-08-17 10:40] LABS: Basophils % 0.6 %; Eosinophils # 0.2 K/mcL (0.0-0.6); Eosinophils % 4.6 %; Hematocrit 30.4 % (37.5-50.1); Hemoglobin 9.2 g/dL (12.9-16.9); Lymphocytes # 1.3 K/mcL (0.6-4.6); Lymphocytes % 37.6 %; Mean Corpuscular HGB Conc 30.3 g/dL (31.6-35.5); Mean Corpuscular Hemoglobin 27.1 pg (28.0-33.3); Mean Corpuscular Volume 89.7 fL (83.0-100.0); Mean Platelet Volume 10.7 fL (9.4-12.4); Monocytes # 0.3 K/mcL (0.0-1.3); Monocytes % 8.8 %; Neutrophils # 1.7 K/mcL (1.6-8.9); Platelet Count 110 K/mcL (140-400); Red Blood Count 3.39 M/mcL (4.19-5.50); Red Cell Distribution Width 14.5 % (11.5-14.5); Segmented Neutrophils % 48.4 %
[2017-08-17 11:00] LABS: Calcium 7.8 mg/dL (8.6-10.3); Magnesium 1.9 mg/dL (1.6-2.6); Potassium 3.8 mEq/L (3.5-5.1)
--- NOTE | 2017-08-17 14:42 | Cardiology Progress Note ---
Date of Encounter: 08/17/17 Time of Encounter: 14:38 Assessment and Plan (1) Elevated troponin Current Visit: Yes Status: Acute Adynamic troponin elevation. Likely demand ischemia in the setting of CHF and CKD stage III. Denies chest pain. TTE results pending. If no significant change no further cardiac testing recommended. (2) CAD (coronary artery disease) Current Visit: No Status: Chronic LHC 06/10/17 showed severe three vessel CAD. EF 65%. Underwent CABG x3 06/27/17. (CHEN-LAD, SVG-DX, SVG-PDA). Continue medical management. Qualifiers: Coronary Disease-Associated Artery/Lesion type: [place] artery [place] vs. transplanted heart: [place] heart Associated angina: with unstable angina Qualified Code(s): I25.110 - Atherosclerotic heart disease of [place] coronary artery with unstable angina pectoris (3) S/P CABG x 3 Current Visit: No Status: Acute Continue asa, statin, and bb. (4) CHF (congestive heart failure) Current Visit: Yes Status: Acute Acute on chronic systolic CHF. [id number]. CXR shows persistent left pleural effusion and atelectasis. Symptoms Improved after IV diuresis. Net negative -4L. Kidney function stable. Last TTE 01/2017 showed preserved EF and mild diastolic dysfunction. Repeat TTE. Last TTE prior to CABG. Will need low dose maintenance lasix at discharge. CHF teaching given. Low sodium diet. Daily weights. Qualifiers: Heart failure type: diastolic Heart failure chronicity: acute Qualified Code(s): I50.31 - Acute diastolic (congestive) heart failure (5) Atrial fibrillation Current Visit: Yes Status: Acute post operative afib per documentation. Currently NSR. On Amiodarone. Will consider discontinuing. Qualifiers: Atrial fibrillation type: unspecified Qualified Code(s): I48.91 - Unspecified atrial fibrillation Discussion w patient/family: The assessment and plan as outlined above was discussed with the patient and/or family members who expressed understanding and agreement. All questions were answered. Thank you for involving us in the care of your patient. Please call with any questions. Subjective Principal diagnosis: DCHF Interval history: Mr. Brownlee reports he is back to baseline and is ready to go home. Denies chest pain or SOB. Objective Vital Signs, Last 4 Hours Temp Pulse Resp BP Pulse Ox 08/17/17 11:03 98.9 F 64 17 149/73 97 General: Conversant, No Apparent Distress HEENT: Atraumatic, Normocephaly, Mucus Membranes Moist Neck: No JVD, Normal carotid pulses Cardiac: Reg Rate and Rhythm, Normal S1 and S2, No Murmur Lungs: Normal Breath Sounds, No Wheeze, Rales, Rhonchi Neuro: Alert and responsive, No focal deficits noted Abdomen: Soft, Non-Tender Skin: No rashes noted on visualized skin Musculoskeletal: No Chest Wall Tenderness Extremities: No Clubbing, No Cyanosis, No Edema, Normal Pulses Results 08/17/17 10:15 08/17/17 10:15 Lab Results 08/17/17 08/17/17 10:15 10:15 WBC 3.5 L Hgb 9.2 L Hct 30.4 L Plt Count 110 L Sodium 140 Potassium 3.8 Chloride 103 Carbon Dioxide 33 H BUN 19 Creatinine 2.18 H Glucose 149 H Calcium 7.8 L Magnesium 1.9 - Imaging and Cardiology Echo: pending Holter: pending - EKG Interpretation EKG results cardiology: personally reviewed Consult Discharge Plan - Plan Referrals: Analilia Montero CNP [Primary Care Provider] - 08/23/17 1:00 pm () Prescriptions: Furosemide [Lasix] 40 mg PO DAILY PRN #30 tablet PRN Reason: Edema Potassium Chloride 20 meq PO DAILY PRN #30 tab.er.prt PRN Reason: hypokalemia
[2017-08-17 15:01] VITALS: BP 142/77
--- NOTE | 2017-08-17 23:57 | Electrocardiograph Report ---
[address] [place] [address] Test Date: 2017-08-15 Pat Name: Ike Esquivel Department: 102 Room: 2A26 Gender: M Car Hop: [place] : 1940 Requested By: Libby Gasca Order Number: [id number] Reading MD: Dell Maher DO Measurements Intervals [place] Rate: 69 P: 55 WA: 151 QRS: 11 QRSD: 114 T: -65 QT: 404 QTc: 422 Interpretive Statements SINUS RHYTHM POSSIBLE LATERAL MYOCARDIAL INFARCTION, OF INDETERMINATE AGE PROBABLE INFERIOR MYOCARDIAL INFARCTION, OF INDETERMINATE AGE NONSPECIFIC ST-T CHANGES Electronically Signed On 08-17-2017 23:55:41 EDT by Dell Maher DO
== END 2017-08-17 16:28 | disposition home or self-care (01) ==
LOC: EMEROO 16:00 → 2ANU 16:00
PROVIDERS: ADMIT Student in an Organized Health Care Education/Training Program; ATTEND Family Medicine

== ENCOUNTER 2018-01-31 08:36 | Observation (INO) ==
--- NOTE | 2018-01-31 08:41 | Emergency Department Note ---
Disposition Clinical Impression: Hypoglycemia Disposition: Admitted As Inpatient Condition: Good General Adult HPI - General Stated complaint: Hypoglycemia Time Seen by Provider: 01/31/18 08:37 - Related Data Home Medications Medication Instructions Recorded Confirmed Atorvastatin Calcium [Lipitor] 20 mg PO HS 01/15/18 01/31/18 Clopidogrel [Plavix] 75 mg PO DAILY 01/15/18 01/31/18 Furosemide [Lasix] 40 mg PO DAILY 01/15/18 01/31/18 Gabapentin [Neurontin] 300 mg PO TID 01/15/18 01/31/18 Glimepiride [Amaryl] 2 mg PO DAILY 01/15/18 01/31/18 Lisinopril [Zestril] 20 mg PO DAILY 01/15/18 01/31/18 Metoprolol Succinate 400 mg PO DAILY 01/15/18 01/31/18 Venlafaxine XR (24 HR) [Effexor Xr] 150 mg PO DAILY 01/15/18 01/31/18 Trazodone HCl 100 mg PO HS PRN 01/31/18 01/31/18 Allergies Allergy/AdvReac Type Severity Reaction Status Date / Time No Known Allergies Allergy Verified 01/31/18 10:47 Past Medical History - Past Medical History Medical history: Reports: aortic aneurysm, arthritis, atrial fibrillation, coronary artery disease, diabetes, hyperlipidemia, hypertension, renal disease Surgical history: Reports: angioplasty/stent, coronary bypass (CABG), orthopedic , other, other Psychiatric history: Reports: anxiety, depression - Social History Smoking Status: Never smoker Smokeless Tobacco Status: No Alcohol use: Reports: none Drug use: Reports: none Course Vital Signs Temperature 97.9 F 01/31/18 08:41 Pulse Rate 65 01/31/18 08:41 Respiratory Rate 20 01/31/18 08:41 Blood Pressure 122/77 01/31/18 08:41 O2 Sat by Pulse Oximetry 93 01/31/18 08:41 Temperature 97.9 F 01/31/18 12:07 Pulse Rate 72 01/31/18 12:07 Respiratory Rate 19 01/31/18 12:07 Blood Pressure 160/91 01/31/18 12:07 O2 Sat by Pulse Oximetry 93 01/31/18 12:07 Oxygen Delivery Oxygen Delivery Room Air Medical Decision Making - Lab Data Result diagrams: 01/31/18 09:44 01/31/18 09:44 Lab Results 01/31/18 01/31/18 Range/Units 09:44 09:44 WBC 8.2 (4.3-11.1) K/mcL RBC 3.33 L (4.19-5.50) M/mcL Hgb 8.8 L (12.9-16.9) g/dL Hct 29.1 L (37.5-50.1) % MCV 87.4 (83.0-100.0) fL MCH 26.4 L (28.0-33.3) pg MCHC 30.2 L (31.6-35.5) g/dL RDW 15.8 H (11.5-14.5) % Plt Count 124 L (140-400) K/mcL MPV 10.1 (9.4-12.4) fL Immature Gran % 0.2 (0-4) % Seg Neutrophils % 69.8 % Lymphocytes % 17.8 % Monocytes % 8.0 % Eosinophils % 4.0 % Basophils % 0.2 % Neutrophils # 5.7 (1.6-8.9) K/mcL Lymphocytes # 1.5 (0.6-4.6) K/mcL Monocytes # 0.7 (0.0-1.3) K/mcL Eosinophils # 0.3 (0.0-0.6) K/mcL Basophils # 0.0 (0.0-0.2) K/mcL Sodium 134 L (136-145) mEq/L Potassium 3.4 L (3.5-5.1) mEq/L Chloride 99 (98-107) mEq/L Carbon Dioxide 30 H (23-29) mEq/L BUN 18 (8-23) mg/dL Creatinine 3.91 H (0.70-1.30) mg/dL Est GFR ( Amer) 18 L (> 60) Est GFR (Non-Af Amer) 15 L (> 60) BUN/Creatinine Ratio 5 L (6-26) Glucose 276 H (70-105) mg/dL Calculated Osmolality 290 (280-300) Calcium 7.0 L (8.6-10.3) mg/dL Total Bilirubin 0.6 (0.3-1.0) mg/dL AST 46 H (13-39) Units/L ALT 23 (7-52) Units/L Alkaline Phosphatase 111 H (34-104) Units/L Serum Total Protein 6.4 (6.4-8.9) g/dL Albumin 2.4 L (3.5-5.7) g/dL Globulin 4.0 H (2.4-3.5) g/dL Albumin/Globulin Ratio 0.6 L (1.1-2.2) Attestation Statement - Attestation Attestation: I examined this patient and my medical decision-making was reviewed with the Resident Physician. I agree with the documented findings, disposition and treatment plan as described except to the extent set forth below. [id number]-go-[id number] time provided Patient arrives from home after being found obtunded. Blood sugar in the 40s by EMS. Given glucagon with improvement of symptoms. Patient appears in no apparent distress upon arrival.
[2018-01-31] MEDS ORDERED: *HR* Dextrose 50 % in Water (Syg) 50 ML SYRINGE IVP ONE (09:05)
--- NOTE | 2018-01-31 09:31 | Emergency Department Note ---
Disposition Clinical Impression: Hypoglycemia Disposition: Admitted As Inpatient Condition: Good Forms: ED Satisfaction Letter, Work/School Release Time of Disposition: 09:50 General Adult HPI - General Chief complaint: ED General Medical Stated complaint: Hypoglycemia Time Seen by Provider: 01/31/18 08:37 Source: EMS Mode of arrival: EMS Limitations: no limitations Nursing Notes Reviewed: Yes Vital Signs Reviewed: Yes - History of Present Illness HPI Narrative: 77-year-old male presented to the emergency department with hypoglycemia. Does have history of diabetes but takes glyburide. He does not take insulin. Patient does do dialysis is Wednesday schedule. He said last night he is normally on also some sweets. Integument his medications. This morning he was difficult to awake and arouse so family called EMS when they got there he had a blood sugar of 43 so they gave him IM glucagon as he was a difficult IV stick. But, got into the embolus patient was alert and oriented and answering all questions. They rechecked his blood sugar when he arrived and it was 80. Patient emergency Department is able answer questions she is alert and oriented and says he does feel like he could eat. He said this never happened to him before going hypoglycemic. Patient otherwise has no nausea or vomiting or any other symptoms at this time. He has not had any fevers or any recent illnesses. Pain Scale: 0 - Related Data Home Medications Medication Instructions Recorded Confirmed Atorvastatin Calcium [Lipitor] 20 mg PO HS 01/15/18 01/15/18 Clopidogrel [Plavix] 75 mg PO DAILY 01/15/18 01/15/18 Furosemide [Lasix] 40 mg PO DAILY 01/15/18 01/15/18 Gabapentin [Neurontin] 300 mg PO TID 01/15/18 01/15/18 Glimepiride [Amaryl] 2 mg PO DAILY 01/15/18 01/15/18 Isosorbide MONOnitrate (24 HR) 30 mg PO DAILY 01/15/18 [Imdur] Lisinopril [Zestril] 20 mg PO DAILY 01/15/18 01/15/18 Metoprolol Succinate 400 mg PO DAILY 01/15/18 01/15/18 Trazodone HCl 100 mg PO HS PRN 01/15/18 01/15/18 Venlafaxine XR (24 HR) [Effexor Xr] 150 mg PO DAILY 01/15/18 01/15/18 Allergies Allergy/AdvReac Type Severity Reaction Status Date / Time No Known Allergies Allergy Verified 01/15/18 10:34 All systems ED: reviewed and negative except as stated. Review of Systems: As Per HPI Constitutional: Denies: fever, chills, weakness, weight change Eyes: Denies: eye pain, eye discharge, vision change ENT ED: Denies: ear pain, throat pain, dental pain, hearing loss, epistaxis, congestion, dysphagia Cardiovascular: Denies: chest pain, palpitations, dyspnea on exertion, edema, syncope Respiratory: Denies: cough, dyspnea, wheezes, hemoptysis, stridor Gastrointestinal: Denies: abdominal pain, nausea, vomiting, diarrhea, constipation, hematemesis, melena, hematochezia Genitourinary: Denies: urgency, dysuria, frequency, hematuria Musculoskeletal: Denies: back pain, neck pain, arthralgia, myalgia Integumentary: Denies: rash, abrasion, lesions Neurological: Denies: headache, weakness, numbness, paresthesias, confusion, abnormal gait, vertigo Psychiatric: Denies: anxiety, depression, suicidal thoughts, homicidal thoughts , auditory hallucinations, visual hallucinations Endocrine: Denies: fatigue Hematological/Lymphatic: Denies: easy bleeding, easy bruising Allergic/Immunologic: Denies: facial swelling, urticaria Past Medical History - Past Medical History Attestation: Yes The following information was validated with the patient. Source: patient Medical history: Reports: aortic aneurysm, arthritis, atrial fibrillation, coronary artery disease, diabetes, hyperlipidemia, hypertension, renal disease Surgical history: Reports: angioplasty/stent, coronary bypass (CABG), orthopedic , other, other Psychiatric history: Reports: anxiety, depression - Social History Smoking Status: Never smoker Smokeless Tobacco Status: No Alcohol use: Reports: none Drug use: Reports: none Physical Exam - General Limitations: no limitations General appearance: alert, in no apparent distress - Head Head exam: atraumatic, normocephalic, normal inspection - Eye Eye exam: Present: normal appearance, PERRL, EOMI - ENT ENT exam: normal exam, normal oropharynx, mucous membranes moist - Neck Neck exam: Present: normal inspection, full ROM, trachea midline - Chest Chest inspection: Present: normal inspection, symmetric chest wall rise - Respiratory Respiratory exam: Present: normal lung sounds bilaterally - Cardiovascular Cardiovascular exam: Present: regular rate, normal rhythm, normal heart sounds - Abdominal Exam Abdominal exam: Present: soft, Non-Tender. Absent: tenderness, distention, guarding, rebound, rigidity - Extremities Exam Extremities exam: Present: normal inspection, full ROM. Absent: tenderness, pedal edema - Back Exam Back exam: Present: normal inspection, full ROM. Absent: tenderness - Neurological Exam Neurological exam: Present: alert, oriented X3 - Psychiatric Psychiatric exam: Present: normal affect, normal mood - Skin Skin exam: Present: warm, dry, intact, normal color Course Course Narrative: 77-year-old male here for hypoglycemia. We will do basic labs including CBC, CMP, EKG. We will also give patient octreotide as well as D50. We will also order future and have patient use he is alert and oriented. Disposition pending results and speaking with family - Consultations Consultation #1: Spoke to the hospital was Dr. Gomez who agreed to admit the patient to their service. Patient is admitted in stable condition. Time: 09:50 Vital Signs Temperature 97.9 F 01/31/18 08:41 Pulse Rate 65 01/31/18 08:41 Respiratory Rate 20 01/31/18 08:41 Blood Pressure 122/77 01/31/18 08:41 O2 Sat by Pulse Oximetry 93 01/31/18 08:41 Temperature 97.9 F 01/31/18 08:41 Pulse Rate 67 01/31/18 09:37 Respiratory Rate 20 01/31/18 09:37 Blood Pressure 137/75 01/31/18 09:37 O2 Sat by Pulse Oximetry 99 01/31/18 09:37 Oxygen Delivery Oxygen Delivery Room Air Medical Decision Making - [facility] Narrative Medical decision making narrative: 77-year-old male presented emergency from hypoglycemia. He does take some funny reels it is a dialysis patient. Actually with family they did not fill control taking him home due to his chance of having hypoglycemia. Patient was given octreotide as well as D50. Seemed to responded well to those. His blood sugars have been normal he did have a train did eat part of the food. He said stable blue blood glucoses here. Due to family not feeling comfortable taking him home and in the fact that he does dialysis and has slow renal clearance of the sulfonylureal we felt that admission would be warranted. I spoke with the hospitalist Dr. Gomez who agreed to admit the patient to their service. Patient admitted in stable condition. - Medical Records Medical records reviewed: Yes I reviewed the patient's medical records. - Lab Data Lab results reviewed: Yes I reviewed the patient's lab results. - EKG Data EKG #1 EKG attestation: Yes I reviewed and interpreted this EKG. EKG results narrative: EKG done at 0901 review myself and attending shows sinus rhythm at a rate of 64 , MO interval 134, QRS 109, QTC [address] changes no acute T-wave changes no other signs of ischemia. No heartstring, hypertrophy, heart block. No WPW/ [place]rug[place]/HOCM. This EKG is otherwise unchanged when compared with old one done
[2018-01-31 10:03] LABS: Basophils % 0.2 %; Eosinophils # 0.3 K/mcL (0.0-0.6); Hematocrit 29.1 % (37.5-50.1); Hemoglobin 8.8 g/dL (12.9-16.9); Immature Granulocytes % 0.2 % (0-4); Lymphocytes # 1.5 K/mcL (0.6-4.6); Lymphocytes % 17.8 %; Mean Corpuscular HGB Conc 30.2 g/dL (31.6-35.5); Mean Corpuscular Hemoglobin 26.4 pg (28.0-33.3); Mean Corpuscular Volume 87.4 fL (83.0-100.0); Mean Platelet Volume 10.1 fL (9.4-12.4); Monocytes # 0.7 K/mcL (0.0-1.3); Neutrophils # 5.7 K/mcL (1.6-8.9); Platelet Count 124 K/mcL (140-400); Red Blood Count 3.33 M/mcL (4.19-5.50); Red Cell Distribution Width 15.8 % (11.5-14.5); Segmented Neutrophils % 69.8 %
[2018-01-31 10:21] LABS: Albumin 2.4 g/dL (3.5-5.7); Albumin/Globulin Ratio 0.6 (1.1-2.2); Bilirubin,Total 0.6 mg/dL (0.3-1.0); Potassium 3.4 mEq/L (3.5-5.1); Total Protein 6.4 g/dL (6.4-8.9)
[2018-01-31] MEDS ORDERED: Naloxone 0.4 MG/ML INJ IVP PRN (10:57)
[2018-01-31] MEDS ORDERED: Dextrose Gel 15 GM/37.5 ML TUBE PO PRN ×2 (10:57)
[2018-01-31] MEDS ORDERED: D5% in Water 1,000 ML IVC PRN (10:57)
[2018-01-31] MEDS ORDERED: *HR* Dextrose 50 % in Water (Syg) 50 ML SYRINGE IVP PRN (10:57)
--- NOTE | 2018-01-31 11:12 | Internal Med History&Physical ---
Date of Encounter: 01/31/18 Time of Encounter: 11:06 Internal Medicine - H&P: HPI History of present illness: Mr. Esquivel is a 77 year old male with history of renal disease on dialysis T, , Sat and diabetes on glyburide presented because of hypoglycemia. present at bedside. His found hiim this morning foaming at the mouth and difficult to wake show she called EMS. They found him to have a glucose of 43 so they have him glucagon IM. Patient became alert after that. Recheck on arrival to ED glucose was 80. Currently on BMP glucose is 276 after getting octreotide and glucagon in ED. Patient currently has no complaints. Of note, and patient states that he has had poor appetite for past week, unsure as to why. He denies fevers/chills, abdominal pain, diarrhea, sick contacts. Past Med Surg Social Fam HX - Past Medical History Medical history: aortic aneurysm, arthritis, atrial fibrillation, coronary artery disease, diabetes, hyperlipidemia, hypertension, renal disease Additional medical history: BLADDER NECK CONTRACTURE, SQUAMOUS CELL CANCER Psychiatric history: anxiety, depression - Past Surgical History Surgical History: angioplasty/stent, coronary bypass (CABG), orthopedic, other, other Additional surgical history: BACK SURGERY 1998, RIGHT HAND MIDDLE FINGER AMPUTATION - Social History Smoking Status: Never smoker Smokeless Tobacco Status: No Alcohol use: none Drug use: none - Family History Father Adopted: No Family Member Ethnicity: Non- Living Status: Hx Family Cardiac Disorders: Yes Mother Adopted: No Family Member Ethnicity: Non- Living Status: Hx Family Cancer: Yes Brother Family Member Ethnicity: Non- Living Status: Still Living Sister Adopted: No Family Member Ethnicity: Non- Living Status: Still Living Hx Family Cardiac Disorders: Yes Hx Family Respiratory Disorders: No Hx Family Cancer: Yes Hx Family GI Disorders: No Hx Family Endocrine Disorder: Yes Hx Family Neuromuscular Disorders: No Hx Family Neurologic Disorders: No Hx Family HEENT Disorders: No Hx Family Autoimmune Disorders: No Internal Medicine - H&P: Meds Atorvastatin Calcium [Lipitor] 20 mg PO HS 01/15/18 [History] Clopidogrel [Plavix] 75 mg PO DAILY 01/15/18 [History] Furosemide [Lasix] 40 mg PO DAILY 01/15/18 [History] Gabapentin [Neurontin] 300 mg PO TID 01/15/18 [History] Glimepiride [Amaryl] 2 mg PO DAILY 01/15/18 [History] Lisinopril [Zestril] 20 mg PO DAILY 01/15/18 [History] Metoprolol Succinate 400 mg PO DAILY 01/15/18 [History] Venlafaxine XR (24 HR) [Effexor Xr] 150 mg PO DAILY 01/15/18 [History] Trazodone HCl 100 mg PO HS PRN 01/31/18 [History] 3 Allergy/AdvReac Type Severity Reaction Status Date / Time No Known Allergies Allergy Verified 01/31/18 10:47 All Systems PM: A 10-system review of systems was performed and is negative for pertinent findings except as documented above in the HPI. - Constitutional Vitals: Temp Pulse Resp BP Pulse Ox 97.9 F 67 20 137/75 99 01/31/18 08:41 01/31/18 09:37 01/31/18 09:37 01/31/18 09:37 01/31/18 09:37 General appearance: Present: A&O X 3 Exam: NAD - Head Head exam: Present: atraumatic, normocephalic - Eye Eye exam: Present: PERRL, conjuntiva pink, sclera anicteric Pupils: Present: PERRL - Neck Neck exam general surgery: Present: supple, trachea midline. Absent: lymphadenopathy - Respiratory Respiratory exam: Present: CTAB. Absent: accessory muscle use, rales, rhonchi, wheezes - Cardiovascular Cardiovascular exam: Present: RRR, +S1, +S2, systolic murmur. Absent: diastolic murmur, gallop, rubs - GI/Abdominal GI/Abdominal exam: Present: normal bowel sounds, soft, no peritoneal signs. Absent: distended, tenderness - Extremities Exam Extremities exam: Present: warm, radial pulses palpable and symmetrical. Absent : calf tenderness, cyanotic, pedal edema - Neurological Exam Neurological exam: Present: CN II-XII intact, oriented X3, no focal deficits. Absent: pronater drift, facial droop, speech deficit - Skin Skin exam: Present: dry, intact Internal Med - H&P Results - Labs CBC & Chem 7: 01/31/18 09:44 01/31/18 09:44 - Assessment and plan (1) Hypoglycemia Current Visit: Yes Status: Acute Assessment and plan: Patient is ESRD on glimepiride with poor PO intake. Will likely need time to clear from system. Will hold glimeperide and place on insulin sliding scale and monitor glucose. Most recent glucose is in 200s. Patient awake and alert at bedside. (2) MGUS (monoclonal gammopathy of unknown significance) Current Visit: No Status: Acute (3) S/P CABG x 3 Current Visit: No Status: Acute (4) Atrial fibrillation Current Visit: No Status: Chronic Qualifiers: Atrial fibrillation type: paroxysmal Qualified Code(s): I48.0 - Paroxysmal atrial fibrillation (5) CAD (coronary artery disease) Current Visit: No Status: Chronic Assessment and plan: Resume Statin and plavix. CABG 9 months ago. Qualifiers: Coronary Disease-Associated Artery/Lesion type: [place] artery [place] vs. transplanted heart: [place] heart Associated angina: without angina Qualified Code(s): I25.10 - Atherosclerotic heart disease of [place] coronary artery without angina pectoris (6) CHF (congestive heart failure) Current Visit: No Status: Chronic Assessment and plan: No acute issues. He has Lasix listed as home medication, but per note he is unsure if he takes it. I am unsure if this patient makes urine, will monitor I/Os. Will resume now and monitor. May need to hold this medication, but concern is that he can become fluid overloaded. Qualifiers: Heart failure type: diastolic Heart failure chronicity: acute Qualified Code(s): I50.31 - Acute diastolic (congestive) heart failure (7) CKD (chronic kidney disease) stage 4, GFR 15-29 ml/min Current Visit: No Status: Chronic Assessment and plan: On dialysis T, Th, Sat (8) Diabetes Current Visit: No Status: Chronic Assessment and plan: Hold Amaryl, start ISS. Diabetic diet. Monitor while patient off of Amaril. Poor PO intake in past week. Unsure of cause. Will monitor glucose to determine discharge diabetes medication regimen. Qualifiers: Diabetes mellitus type: type 2 Diabetes mellitus assistant terminal manager insulin use: without snf use Diabetes mellitus complication status: with kidney complications Diabetes mellitus complication detail: with microalbuminuria Qualified Code(s): E11.29 - Type 2 diabetes mellitus with other diabetic kidney complication; R80.9 - Proteinuria, unspecified (9) HLD (hyperlipidemia) Current Visit: No Status: Chronic Assessment and plan: Resume statin. Qualifiers: Hyperlipidemia type: pure hypercholesterolemia Qualified Code(s): E78.00 - Pure hypercholesterolemia, unspecified; E78.0 - Pure hypercholesterolemia (10) HTN (hypertension) Current Visit: No Status: Chronic Assessment and plan: Resume home medications. Qualifiers: Hypertension type: essential hypertension Qualified Code(s): I10 - Essential (primary) hypertension (11) Thrombocytopenia Current Visit: No Status: Chronic Assessment and plan: Stable (12) Abdominal aneurysm Current Visit: No Status: Acute Assessment and plan: Stable no acute issues. (13) Liver cirrhosis Current Visit: No Status: Acute Qualifiers: Hepatic cirrhosis type: alcoholic cirrhosis Ascites presence: with ascites Qualified Code(s): K70.31 - Alcoholic cirrhosis of liver with ascites (14) DVT prophylaxis Current Visit: No Status: Acute Assessment and plan: Patient does not appear to be on any anticoagulant, has known history of atrial fibrillation. He does have thrombocytopenia. Will place on Heparin SQ. - Time Spent With Patient Total time spent is greater than 50% in coordination of care (as documented) at patient's floor/unit and/or counseling patient:
[2018-01-31] MEDS ORDERED: traZODone 50 MG TABLET PO PRN (11:21)
[2018-01-31] MEDS ORDERED: hydrOXYzine pamoate 25 MG CAPSULE PO ONE (13:39)
[2018-01-31] MEDS: Insulin LISPRO 300 UNITS/3 ML VIAL SQ SCH ×2 (13:44→16:58)
[2018-01-31] MEDS ORDERED: Acetaminophen 325 MG TABLET PO PRN (16:12)
[2018-01-31] MEDS: *HR* Heparin 5,000 UNIT/ML VIAL SQ SCH (17:20)
[2018-01-31] MEDS ORDERED: Ondansetron 4 MG/2 ML VIAL IVP PRN (17:31)
[2018-01-31] MEDS ORDERED: Insulin LISPRO 300 UNITS/3 ML VIAL SQ SCH (21:00)
[2018-01-31] MEDS ORDERED: Acetaminophen 325 MG TABLET PO ONE (21:33)
[2018-01-31] MEDS: Gabapentin 300 MG CAPSULE PO SCH (21:42)
[2018-02-01] MEDS: *HR* Heparin 5,000 UNIT/ML VIAL SQ SCH (05:06)
[2018-02-01 06:38] LABS: Calcium 7.3 mg/dL (8.6-10.3); Potassium 4.1 mEq/L (3.5-5.1)
[2018-02-01 07:16] LABS: Basophils % 0.5 %; Eosinophils # 0.4 K/mcL (0.0-0.6); Eosinophils % 7.2 %; Hematocrit 30.3 % (37.5-50.1); Hemoglobin 9.3 g/dL (12.9-16.9); Immature Granulocytes % 0.3 % (0-4); Lymphocytes # 1.8 K/mcL (0.6-4.6); Lymphocytes % 29.7 %; Mean Corpuscular HGB Conc 30.7 g/dL (31.6-35.5); Mean Corpuscular Volume 88.1 fL (83.0-100.0); Mean Platelet Volume 10.7 fL (9.4-12.4); Monocytes # 0.6 K/mcL (0.0-1.3); Monocytes % 10.3 %; Neutrophils # 3.2 K/mcL (1.6-8.9); Platelet Count 123 K/mcL (140-400); Red Blood Count 3.44 M/mcL (4.19-5.50); Red Cell Distribution Width 15.9 % (11.5-14.5)
[2018-02-01] MEDS: Insulin LISPRO 300 UNITS/3 ML VIAL SQ SCH ×2 (08:27→12:30)
[2018-02-01] MEDS ORDERED: Furosemide 40 MG TABLET PO SCH (09:00)
[2018-02-01] MEDS ORDERED: Metoprolol XL (24 HR) Succ 50 MG TAB.ER.24H PO SCH ×2 (09:00→10:12)
[2018-02-01] MEDS ORDERED: Venlafaxine XR (24 HR) 150 MG CAP.ER.24H PO SCH (09:00)
[2018-02-01] MEDS ORDERED: Lisinopril 20 MG TABLET PO SCH (09:00)
[2018-02-01] MEDS: Gabapentin 300 MG CAPSULE PO SCH (09:10)
--- NOTE | 2018-02-01 10:27 | Nephrology Consult Note ---
<Korin Whitmore Seda - Last Filed: 02/01/18 14:08> Date of Encounter: 02/01/18 Time of Encounter: 10:14 Assessment and Plan (1) Hypoglycemia Status: Acute Per primary. (2) ESRD (end stage renal disease) on dialysis Status: Acute Current regimen is TTS at [facility]. Last tx was Wednesday. HD ordered for today. Renal diet, if able to eat. Strict I/O Avoid nephrotoxins and renal dose all medications. History of Present Illness - Reason for Consult Consult date: 02/01/18 end stage renal disease - Chief Complaint hypoglycemia - History of Present Illness Mr. Esquivel is a 77 year old male who presented to the ED with hypoglycemia, BS was 43. PMH:DM, HTN, Afib, CAD s/p CABG, liver cirrhosis and CKD stage 3 (last hospitalization). Mr. Esquivel was just d/rema from this facility on 01/26/18 for worsening renal failure. He was started on HD that visit after extensive workup. He was seen by Heme/Onc and a bone marrow biopsy was completed. 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 Scr today is 4.66 and GFR is 12. His last HD tx was Wednesday, and he is due today for a treatment. His current regimen is TTS at [facility]. He denies any recent mediation changes, although he did mention to me that "they" are going to stop his PO diabetic medication and start sliding scale insulin. No chronic use of NSAIDS. He does a chronic [place] cath that is managed by Dr. Londono, outpatient. Past Med Surg Social Fam HX - Past Medical History Medical history: aortic aneurysm, arthritis, atrial fibrillation, coronary artery disease, diabetes, hyperlipidemia, hypertension, renal disease Additional medical history: BLADDER NECK CONTRACTURE, SQUAMOUS CELL CANCER Psychiatric history: anxiety, depression - Past Surgical History Surgical History: angioplasty/stent, coronary bypass (CABG), orthopedic, other, other Additional surgical history: BACK SURGERY 1998, RIGHT HAND MIDDLE FINGER AMPUTATION - Social History Smoking Status: Never smoker Smokeless Tobacco Status: No Alcohol use: none Drug use: none - Family History Father Adopted: No Family Member Ethnicity: Non- Living Status: Hx Family Cardiac Disorders: Yes Mother Adopted: No Family Member Ethnicity: Non- Living Status: Hx Family Cancer: Yes Brother Family Member Ethnicity: Non- Living Status: Still Living Sister Adopted: No Family Member Ethnicity: Non- Living Status: Still Living Hx Family Cardiac Disorders: Yes Hx Family Respiratory Disorders: No Hx Family Cancer: Yes Hx Family GI Disorders: No Hx Family Endocrine Disorder: Yes Hx Family Neuromuscular Disorders: No Hx Family Neurologic Disorders: No Hx Family HEENT Disorders: No Hx Family Autoimmune Disorders: No Medications and Allergies Atorvastatin Calcium [Lipitor] 20 mg PO HS 01/15/18 [History] Clopidogrel [Plavix] 75 mg PO DAILY 01/15/18 [History] Furosemide [Lasix] 40 mg PO DAILY 01/15/18 [History] Gabapentin [Neurontin] 300 mg PO TID 01/15/18 [History] Lisinopril [Zestril] 20 mg PO DAILY 01/15/18 [History] Venlafaxine XR (24 HR) [Effexor Xr] 150 mg PO DAILY 01/15/18 [History] Trazodone HCl 100 mg PO HS PRN 01/31/18 [History] Metoprolol XL (24 HR) Succ [Toprol Xl] 200 mg PO DAILY tab.er.24h 02/01/18 [Rx] 3 Allergy/AdvReac Type Severity Reaction Status Date / Time No Known Allergies Allergy Verified 01/31/18 10:47 Review of Systems Constitutional: no chills, no fever(s), no weakness Cardiovascular: no chest pain, no dyspnea Respiratory: no cough Gastrointestinal: no change in bowel habits, no diarrhea, no nausea, no vomiting Exam - Vital Signs Vital signs: Initial Vital Signs Temp Pulse Resp BP Pulse Ox 97.9 F 65 20 122/77 93 01/31/18 08:41 01/31/18 08:41 01/31/18 08:41 01/31/18 08:41 01/31/18 08:41 Vital Signs - Last 8 Hours Temp Pulse Resp BP Pulse Ox 02/01/18 07:43 99.5 F 85 18 157/91 95 02/01/18 04:35 98.8 F 78 17 113/65 92 Intake and Output 01/31/18 02/01/18 02/01/18 23:59 07:59 15:59 Intake Total 40 / 40 0 / 0 120 / 120 Output Total 0 / 0 150 / 150 100 / 100 Balance 40 / 40 -150 / -150 20 / 20 Intake: Oral 40 / 40 0 / 0 120 / 120 Output: Urine 0 / 0 Catheter 150 / 150 100 / 100 Other: Meal Dinner Breakfast Percent of Meal Consumed 0% 50% Weight 98.4 kg Blood Glucose* 115 85 - General Appearance General appearance: well-developed, well-nourished EENT: ATNC, hearing intact, vision intact Neck: supple Respiratory: clear Cardiology: normal S1, normal S2 - Dialysis Access Dialysis Vascular Access: Venous Catheter (Tunneled Line, DRSG C/D/I.) Gastrointestinal: normoactive bowel sounds, no tenderness, no guarding Integumentary: no rash, warm and dry Neurologic: alert and oriented x3 Psychiatric: mood/affect appropriate, cooperative Results - Lab Results 02/01/18 05:46 02/01/18 05:46 Most recent lab results Calcium 7.3 mg/dL (8.6-10.3) L 02/01/18 05:46 Consult Discharge Plan - Plan Additional Instructions: F/up with PCP in 1-2 weeks F/up with HD 3times/week- TTS Referrals: Analilia Montero CNP [Primary Care Provider] - (web requested ) <Wendy Donovan - Last Filed: 02/06/18 23:16> Date of Encounter: 02/01/18 Assessment and Plan (1) Hypoglycemia Status: Acute (2) ESRD (end stage renal disease) on dialysis Status: Chronic Exam - Vital Signs Vital signs: Initial Vital Signs Temp Pulse Resp BP Pulse Ox 97.9 F 65 20 122/77 93 01/31/18 08:41 01/31/18 08:41 01/31/18 08:41 01/31/18 08:41 01/31/18 08:41 Results - Lab Results 02/01/18 05:46 02/01/18 05:46 Most recent lab results Calcium 7.3 mg/dL (8.6-10.3) L 02/01/18 05:46 - Attending Attestation I examined this patient and my medical decision-making was reviewed with the Resident Physician/LEARNING SUPPORT AIDE. I agree with the documented findings, disposition and treatment plan as described except to the extent set forth below. Pt seen and examined and in brief; 77 y o male newly started on HD on last hospital stay returning for hypoglycemic symptoms. renal consulted to resume his HD regimen as today is his HD day, will resume. Orders given to nursing staff. On exam chronic ill appearing otherwise unremarkable. Workup for myeloma ongoing as well.
[2018-02-01] MEDS ORDERED: 0.9 % Sodium Chloride 250 ML IVC PRN (12:57)
[2018-02-01] MEDS ORDERED: *HR* Heparin 10,000 UNIT/10 ML VIAL IV PRN (13:07)
--- NOTE | 2018-02-01 16:14 | Discharge Summary ---
- NOTES TO OUTPATIENT PROVIDER Notes to Outpatient Provider: Hypoglycemia, likely due to anorexia and SulfonylUrea in a dialysis patient; now holding the med, to monitor blood sugars closely; Date of Encounter: 02/02/18 Time of Encounter: 09:15 - Discharge Diagnosis (1) CAD (coronary artery disease) Priority: Secondary Status: Chronic Qualifiers: Coronary Disease-Associated Artery/Lesion type: bypass graft [place] vs. transplanted heart: [place] heart Associated angina: without angina Qualified Code(s): I25.810 - Atherosclerosis of coronary artery bypass graft(s) without angina pectoris (2) Diabetes Priority: Secondary Status: Chronic Qualifiers: Diabetes mellitus type: type 2 Diabetes mellitus residential insulin use: without exterminator use Diabetes mellitus complication status: with kidney complications Diabetes mellitus complication detail: with chronic kidney disease Chronic kidney disease stage: on chronic dialysis Qualified Code(s) : E11.22 - Type 2 diabetes mellitus with diabetic chronic kidney disease; N18.6 - End stage renal disease; Z99.2 - Dependence on renal dialysis (3) HTN (hypertension) Priority: Secondary Status: Chronic Qualifiers: Hypertension type: essential hypertension Qualified Code(s): I10 - Essential (primary) hypertension (4) HLD (hyperlipidemia) Priority: Secondary Status: Chronic Qualifiers: Hyperlipidemia type: pure hypercholesterolemia Qualified Code(s): E78.00 - Pure hypercholesterolemia, unspecified; E78.0 - Pure hypercholesterolemia (5) Hypoglycemia Priority: Primary Status: Acute (6) Atrial fibrillation Priority: Secondary Status: Chronic Qualifiers: Atrial fibrillation type: paroxysmal Qualified Code(s): I48.0 - Paroxysmal atrial fibrillation (7) Liver cirrhosis Priority: Secondary Status: Chronic Qualifiers: Hepatic cirrhosis type: alcoholic cirrhosis Ascites presence: with ascites Qualified Code(s): K70.31 - Alcoholic cirrhosis of liver with ascites (8) MGUS (monoclonal gammopathy of unknown significance) Priority: Secondary Status: Chronic Hospital course: Mr. Esquivel is a 77 year old male with the above medical problems, who was brought in by EMS after having been found with altered mental status at home. Patient was somewhat lethargic and noted to be hypoglycemic with blood sugar in in the 40s, that improved slowly after receiving D50 and glucagon. Patient was noted to be on oral hypoglycemic, sulfonylurea at home, which was held since admission. His blood sugars remained stable during this hospitalization, dropped to 50s after dialysis, improved after dinner and is currently medically stable for discharge home. He is encouraged to stop taking sulfonylurea at home, to monitor his blood sugars closely and to follow-up with his primary care provider. Home health services are being resumed. Nephrology was consulted and patient underwent regular hemodialysis session. Discharge discussed with: patient, nurse - Time Spent with Patient Total time spent providing and/or coordinating discharge services: Greater than 30 minutes (40 min) - Discharge Medications Home Medications: Atorvastatin Calcium [Lipitor] 20 mg PO HS 01/15/18 [History] Clopidogrel [Plavix] 75 mg PO DAILY 01/15/18 [History] Furosemide [Lasix] 40 mg PO DAILY 01/15/18 [History] Gabapentin [Neurontin] 300 mg PO TID 01/15/18 [History] Lisinopril [Zestril] 20 mg PO DAILY 01/15/18 [History] Venlafaxine XR (24 HR) [Effexor Xr] 150 mg PO DAILY 01/15/18 [History] Trazodone HCl 100 mg PO HS PRN 01/31/18 [History] Metoprolol XL (24 HR) Succ [Toprol Xl] 200 mg PO DAILY tab.er.24h 02/01/18 [Rx] Allergies/Adverse Reactions: 3 Allergy/AdvReac Type Severity Reaction Status Date / Time No Known Allergies Allergy Verified 01/31/18 10:47 Date of admission: 01/31/18 09:50 Primary care physician: Analilia Montero CNP Consults: 02/01/18 08:25 Consult to Nephrology [CONS] Routine Consulting Provider: Kidney Faye/AGUSTINA/TRAN/SHRADDHA Reason for Consult: ESRD on HD- TTS Call Completed: Yes 02/01/18 13:00 Consult to Dialysis [CONS] ONCE Discharging clinician: Geetha Gonzalez Anticipated date of discharge: 02/01/18 - Constitutional Vitals: Temp Pulse Resp BP Pulse Ox 100.2 F H 80 18 162/91 92 02/01/18 13:10 02/01/18 11:11 02/01/18 13:10 02/01/18 15:55 02/01/18 11:11 General appearance: Present: A&O X 3, answers questions appropriately Exam: . - Cardiovascular Cardiovascular exam: Present: RRR, +S1, +S2, systolic murmur. Absent: diastolic murmur, gallop, rubs - Patient Status Disposition: Home Health Service Condition: Good Functional capacity at discharge: independent ambulation Overall status at discharge: patient is progressing back to baseline - Discharge Instructions Follow Up With: Analilia Montero CNP [Primary Care Provider] - (web requested ) Additional Instructions: F/up with PCP in 1-2 weeks F/up with HD 3times/week- TTS - Diet and Activity Activity: as per physical therapy Diet: diabetic diet, low fat, low cholesterol, low salt diet, other (renal diet)
[2018-02-01 17:03] VITALS: BP 176/95
--- NOTE | 2018-02-01 18:22 | Physician Discharge Referral ---
Home Health/Hosp Referral Info Transfer to: Home Health Attending Provider: Geetha Gonzalez Provider in Charge Post Discharge: PCP - Diagnosis (1) CAD (coronary artery disease) Priority: Secondary Status: Chronic (2) Diabetes Priority: Secondary Status: Chronic (3) HTN (hypertension) Priority: Secondary Status: Chronic (4) HLD (hyperlipidemia) Priority: Secondary Status: Chronic (5) Hypoglycemia Priority: Primary Status: Acute (6) Atrial fibrillation Priority: Secondary Status: Chronic (7) Liver cirrhosis Priority: Secondary Status: Chronic (8) MGUS (monoclonal gammopathy of unknown significance) Priority: Secondary Status: Chronic (9) ESRD (end stage renal disease) on dialysis Priority: Secondary Status: Chronic - Respiratory Orders Smoking Cessation: Smoking cessation has been advised. For more information, call the [employer] Tobacco Quit Line at 6-504-FFSY-NOW. - Diet/Nutrition Diet/Nutrition Orders: Renal, Cardiac, No Concentrated Sweets (diabetic) - Activity Activity Orders: Ambulate - Services Needed Following services are medically necessary services: Nursing, Physical Therapy, Occupational Therapy - Transfer Medications Home Medications: Atorvastatin Calcium [Lipitor] 20 mg PO HS 01/15/18 [History] Clopidogrel [Plavix] 75 mg PO DAILY 01/15/18 [History] Furosemide [Lasix] 40 mg PO DAILY 01/15/18 [History] Gabapentin [Neurontin] 300 mg PO TID 01/15/18 [History] Lisinopril [Zestril] 20 mg PO DAILY 01/15/18 [History] Venlafaxine XR (24 HR) [Effexor Xr] 150 mg PO DAILY 01/15/18 [History] Trazodone HCl 100 mg PO HS PRN 01/31/18 [History] Metoprolol XL (24 HR) Succ [Toprol Xl] 200 mg PO DAILY tab.er.24h 02/01/18 [Rx] Allergies/Adverse Reactions: 3 Allergy/AdvReac Type Severity Reaction Status Date / Time No Known Allergies Allergy Verified 01/31/18 10:47 Certification: Further, I certify that my clinical findings support that this patient is homebound (i.e. absences from home require considerable and taxing effort and are for medical reasons or tenriism services or infrequently or short duration when for other reasons) because: Homebound Reason: Patient requires assistance of a person or device to safely leave home, Leaving home requires considerable and taxing effort due to condition Attestation: My signature below is to certify that this patient is under my care and that I, or nurse practitioner, or a physician's reading assistant working with me, has a face-to -face encounter with this patient.
--- NOTE | 2018-02-02 23:14 | Electrocardiograph Report ---
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
== END 2018-02-01 17:48 | disposition home health service (06) ==
LOC: 2ANU 08:36 → EMEROOARM 08:36 → SUATTDRO 09:50 → 2ANU 12:25
PROVIDERS: ADMIT Student in an Organized Health Care Education/Training Program; ATTEND Internal Medicine

== ENCOUNTER 2018-03-04 00:49 | Inpatient (IN) ==
[2018-03-04] MEDS ORDERED: 0.9 % Sodium Chloride 1,000 ML IVC ONE (01:04)
--- NOTE | 2018-03-04 01:19 | Emergency Department Note ---
Disposition Clinical Impression: Hospital-acquired pneumonia Left upper lobe pneumonia Qualifiers: Pneumonia type: due to unspecified organism Qualified Code(s): J18.1 - Lobar pneumonia, unspecified organism Disposition: Admitted As Inpatient Condition: Good Referrals: Analilia Montero CNP [Primary Care Provider] - Forms: ED Satisfaction Letter Time of Disposition: 03:11 General Adult HPI - General Chief complaint: ED Shortness of Breath/Dyspnea Stated complaint: SOB fever Time Seen by Provider: 03/04/18 01:01 Source: patient Limitations: physical limitation, other - History of Present Illness HPI Narrative: This is a 77-year-old male brought in by EMS because of cough and shortness of breath with associated fever. He states the symptoms have been present for a few days. He denies a history of COPD or asthma. Pain Scale: 8 - Related Data Home Medications Medication Instructions Recorded Confirmed Atorvastatin Calcium [Lipitor] 20 mg PO HS 01/15/18 01/31/18 Clopidogrel [Plavix] 75 mg PO DAILY 01/15/18 01/31/18 Furosemide [Lasix] 40 mg PO DAILY 01/15/18 01/31/18 Gabapentin [Neurontin] 300 mg PO TID 01/15/18 01/31/18 Lisinopril [Zestril] 20 mg PO DAILY 01/15/18 01/31/18 Venlafaxine XR (24 HR) [Effexor Xr] 150 mg PO DAILY 01/15/18 01/31/18 Trazodone HCl 100 mg PO HS PRN 01/31/18 01/31/18 Previous Rx's Medication Instructions Recorded Metoprolol XL (24 HR) Succ [Toprol 200 mg PO DAILY tab.er.24h 02/01/18 Xl] Allergies Allergy/AdvReac Type Severity Reaction Status Date / Time No Known Allergies Allergy Verified 01/31/18 10:47 All systems ED: reviewed and negative except as stated. Constitutional: Reports: fever Respiratory: Reports: cough, dyspnea Past Medical History - Past Medical History Medical history: Reports: aortic aneurysm, arthritis, atrial fibrillation, coronary artery disease, diabetes, hyperlipidemia, hypertension, renal disease Surgical history: Reports: angioplasty/stent, coronary bypass (CABG), orthopedic , other, other Psychiatric history: Reports: anxiety, depression - Social History Smoking Status: Former smoker Smokeless Tobacco Status: No Alcohol use: Reports: none Drug use: Reports: none Physical Exam - General Limitations: physical limitation, other General appearance: alert, in no apparent distress - Head Head exam: atraumatic, normocephalic, normal inspection - Eye Eye exam: Present: normal appearance, PERRL, EOMI - Chest Chest inspection: Present: normal inspection, symmetric chest wall rise - Respiratory Respiratory exam: Present: accessory muscle use, other (There are occasional rhonchi heard in the apices bilaterally, no wheezes). Absent: respiratory distress, prolonged expiratory phase - Cardiovascular Cardiovascular exam: Present: normal rhythm, tachycardia, normal heart sounds - Abdominal Exam Abdominal exam: Present: soft, Non-Tender - Extremities Exam Extremities exam: Present: normal inspection, full ROM. Absent: tenderness, pedal edema - Neurological Exam Neurological exam: Present: alert, oriented X3, CN II-XII intact - Psychiatric Psychiatric exam: Present: normal affect, normal mood - Skin Skin exam: Present: warm, dry, intact, normal color Course Course Narrative: This is a 77-year-old male with fever, cough, and shortness of breath concerning for pneumonia Vital Signs Temperature 101.1 F H 03/04/18 00:59 Pulse Rate 103 03/04/18 00:59 Respiratory Rate 21 03/04/18 00:59 Blood Pressure 171/99 03/04/18 00:59 O2 Sat by Pulse Oximetry 94 03/04/18 00:59 Temperature 101.1 F H 03/04/18 00:59 Pulse Rate 106 03/04/18 02:40 Respiratory Rate 21 03/04/18 02:40 Blood Pressure 116/94 03/04/18 02:40 O2 Sat by Pulse Oximetry 98 03/04/18 02:40 Oxygen Delivery Oxygen Delivery Nasal Cannula Medical Decision Making - MDM Narrative Medical decision making narrative: This is a 77-year-old male who was admitted to the hospital almost exactly one month ago who returns now with a left upper lobe pneumonia, cough, and fever. Zosyn, vancomycin, and levofloxacin were given for antimicrobial treatment with the concerned for possible hospital-acquired pneumonia I discussed this case with the on-call hospitalist, who accepted him for admission - Medical Records Medical records reviewed: Yes I reviewed the patient's medical records. He was admitted to the hospital slightly over one month ago - Lab Data Lab results reviewed: Yes I reviewed the patient's lab results. Lab results narrative: CBC shows anemia 10.0 and 32.4 with thrombocytopenia at 1:30 BMP showed creatinine elevated at 4.4 to Lactic acid was at the upper limit of normal 2.2 Troponin was slightly elevated at 0.07 Result diagrams: 03/04/18 01:48 03/04/18 01:48 Lab Results 03/04/18 03/04/18 03/04/18 Range/Units 01:48 01:48 01:48 WBC 9.7 (4.3-11.1) K/mcL RBC 3.62 L (4.19-5.50) M/mcL Hgb 10.0 L (12.9-16.9) g/dL Hct 32.4 L (37.5-50.1) % MCV 89.5 (83.0-100.0) fL MCH 27.6 L (28.0-33.3) pg MCHC 30.9 L (31.6-35.5) g/dL RDW 17.4 H (11.5-14.5) % Plt Count 130 L (140-400) K/mcL MPV 9.9 (9.4-12.4) fL Immature Gran % 0.2 (0-4) % Seg Neutrophils % 82.8 % Lymphocytes % 7.5 % Monocytes % 9.4 % Eosinophils % 0.1 % Basophils % 0.0 % Neutrophils # 8.0 (1.6-8.9) K/mcL Lymphocytes # 0.7 (0.6-4.6) K/mcL Monocytes # 0.9 (0.0-1.3) K/mcL Eosinophils # 0.0 (0.0-0.6) K/mcL Basophils # 0.0 (0.0-0.2) K/mcL Sodium 133 L (136-145) mEq/L Potassium 3.8 (3.5-5.1) mEq/L Chloride 97 L (98-107) mEq/L Carbon Dioxide 23 (23-29) mEq/L BUN 36 H (8-23) mg/dL Creatinine 4.42 H (0.70-1.30) mg/dL Est GFR ( Amer) 16 L (> 60) Est GFR (Non-Af Amer) 13 L (> 60) BUN/Creatinine Ratio 8 (6-26) Glucose 213 H (70-105) mg/dL Calculated Osmolality 291 (280-300) Lactic Acid 2.2 (0.5-2.2) mmol/L Calcium 7.7 L (8.6-10.3) mg/dL Troponin I 0.07 H* (< 0.04) ng/mL - Radiology Data Radiology results reviewed: Yes I reviewed the patient's radiology results. Chest x-ray shows a dense left upper lobe pneumonia - EKG Data EKG #1 EKG attestation: Yes I reviewed and interpreted this EKG. EKG results narrative: ECG showed sinus tachycardia at 102 bpm, normal intervals, normal axis, normal ST, T-wave inversions in leads V4 through V6 Critical Care Time Critical Care Time: Yes Total Critical Care Time: 25 Attestation: 25 minutes of critical care time was invested independent of separately billable procedures
[2018-03-04] MEDS ORDERED: Ondansetron 4 MG/2 ML VIAL ONE (01:20)
[2018-03-04] MEDS: Ondansetron 4 MG/2 ML VIAL IVP ONE ×2 (01:23→01:26)
[2018-03-04 02:08] LABS: Eosinophils % 0.1 %; Hematocrit 32.4 % (37.5-50.1); Immature Granulocytes % 0.2 % (0-4); Lymphocytes # 0.7 K/mcL (0.6-4.6); Lymphocytes % 7.5 %; Mean Corpuscular HGB Conc 30.9 g/dL (31.6-35.5); Mean Corpuscular Hemoglobin 27.6 pg (28.0-33.3); Mean Corpuscular Volume 89.5 fL (83.0-100.0); Mean Platelet Volume 9.9 fL (9.4-12.4); Monocytes # 0.9 K/mcL (0.0-1.3); Monocytes % 9.4 %; Platelet Count 130 K/mcL (140-400); Red Blood Count 3.62 M/mcL (4.19-5.50); Red Cell Distribution Width 17.4 % (11.5-14.5); Segmented Neutrophils % 82.8 %
[2018-03-04] MEDS ORDERED: Piperacillin/Tazobactam 3.375 GM in Water for inj. (sterile) 20 ML 20 ML IVP ONE (02:18)
[2018-03-04] MEDS ORDERED: Azithromycin 250 MG TABLET PO ONE (02:18)
[2018-03-04 02:25] LABS: Calcium 7.7 mg/dL (8.6-10.3); Potassium 3.8 mEq/L (3.5-5.1)
[2018-03-04 02:28] LABS: Troponin I 0.07 ng/mL (< 0.04)
[2018-03-04] MEDS ORDERED: Levofloxacin 500 MG/100 ML 500 MG/100 ML BAG IVPB ONE (03:04)
[2018-03-04] MEDS ORDERED: Naloxone 0.4 MG/ML INJ IVP PRN (04:17)
[2018-03-04] MEDS ORDERED: *HR* HYDROcodone/Acet 5/325 mg TABLET PO PRN (04:17)
[2018-03-04] MEDS ORDERED: Acetaminophen 325 MG TABLET PO PRN (04:17)
[2018-03-04] MEDS ORDERED: D5% in Water 1,000 ML IVC PRN (04:36)
[2018-03-04] MEDS ORDERED: *HR* Dextrose 50 % in Water (Syg) 50 ML SYRINGE IVP PRN (04:36)
[2018-03-04] MEDS ORDERED: Dextrose Gel 15 GM/37.5 ML TUBE PO PRN ×2 (04:36)
[2018-03-04] MEDS ORDERED: Ringers Solution, Lactated 500 ML IVC ONE ×2 (04:54→06:07)
[2018-03-04] MEDS ORDERED: Melatonin 3 MG TABLET PO ONE (04:54)
[2018-03-04] MEDS ORDERED: VANCOMYCIN IVPB PRN (05:00)
--- NOTE | 2018-03-04 05:05 | Internal Med History&Physical ---
Date of Encounter: 03/04/18 Time of Encounter: 05:03 Internal Medicine - H&P: HPI Chief complaint: Cough Admitted From: Emergency Dept Plans for Post Hospital Care: Home History of present illness: Mr. Esquivel is a 77 year old male with history of coronary artery disease, hypertension, ESRD who presents with cough. Patient states for the past week or so has had a cough. On Wednesday he went to his primary care physician who prescribed him a course of Zithromax, Medrol Dosepak. Patient states he did not need better and his cough persisted so came the emergency department. He reports it is a dry cough and has not been able to cough anything up. He reports subjective fevers and chills at home. He reports he has abdominal wall tenderness that he feels from excessive coughing. He states his cough somewhat says caused him to dry heave. Denies chest pain, nausea, vomiting, diarrhea, dysuria, hemoptysis, weight loss. Past Med Surg Social Fam HX - Past Medical History Medical history: aortic aneurysm, arthritis, coronary artery disease, diabetes, hyperlipidemia, hypertension, renal disease Additional medical history: BLADDER NECK CONTRACTURE, SQUAMOUS CELL CANCER Psychiatric history: anxiety, depression - Past Surgical History Surgical History: angioplasty/stent, coronary bypass (CABG), orthopedic, other, other Additional surgical history: BACK SURGERY 1998, RIGHT HAND MIDDLE FINGER AMPUTATION - Social History Smoking Status: Never smoker Smokeless Tobacco Status: No Alcohol use: none Drug use: none - Family History Father Adopted: No Family Member Ethnicity: Non- Living Status: Hx Family Cardiac Disorders: Yes Mother Adopted: No Family Member Ethnicity: Non- Living Status: Hx Family Cancer: Yes Brother History Unknown: Yes Family Member Ethnicity: Non- Living Status: Still Living Sister History Unknown: Yes Adopted: No Family Member Ethnicity: Non- Living Status: Still Living Hx Family Cardiac Disorders: Yes Hx Family Respiratory Disorders: No Hx Family Cancer: Yes Hx Family GI Disorders: No Hx Family Endocrine Disorder: Yes Hx Family Neuromuscular Disorders: No Hx Family Neurologic Disorders: No Hx Family HEENT Disorders: No Hx Family Autoimmune Disorders: No Internal Medicine - H&P: Meds Atorvastatin Calcium [Lipitor] 20 mg PO HS 01/15/18 [History] Clopidogrel [Plavix] 75 mg PO DAILY 01/15/18 [History] Furosemide [Lasix] 40 mg PO DAILY 01/15/18 [History] Gabapentin [Neurontin] 300 mg PO TID 01/15/18 [History] Lisinopril [Zestril] 20 mg PO DAILY 01/15/18 [History] Venlafaxine XR (24 HR) [Effexor Xr] 150 mg PO DAILY 01/15/18 [History] Trazodone HCl 100 mg PO HS PRN 01/31/18 [History] Metoprolol XL (24 HR) Succ [Toprol Xl] 200 mg PO DAILY tab.er.24h 02/01/18 [Rx] 3 Allergy/AdvReac Type Severity Reaction Status Date / Time No Known Allergies Allergy Verified 01/31/18 10:47 All Systems PM: A 10-system review of systems was performed and is negative for pertinent findings except as documented above in the HPI. - Constitutional Constitutional: chills, fatigue, fever(s) - EENT Eyes: no blurry vision, no change in vision Nose, mouth and throat: no nasal congestion, no sinus pain, no sinus pressure, no sore throat - Cardiovascular Cardiovascular ROS IM: dyspnea, no chest pain, no edema, no irregular heart rhythm, no lightheadedness, no palpitations, no syncope - Respiratory Respiratory: cough, dyspnea, chest congestion, no hemoptysis, no excessive phlegm production, no change in phlegm color - Gastrointestinal Gastrointestinal: abdominal pain, no diarrhea, no nausea, no vomiting - Genitourinary Genitourinary ROS male: no dysuria, no hematuria - Musculoskeletal Musculoskeletal ROS IM: arthralgias (shoulder), no numbness, no tingling - Integumentary Integumentary IM: no erythema, no rash - Neurological Neurological ROS: weakness, no dizziness, no numbness, no tingling - Psychiatric Psychiatric: no anxiety, no depression - Endocrine Endocrine IM: no polydipsia, no polyuria - Constitutional Vitals: Temp Pulse Resp BP Pulse Ox 98.1 F 92 16 113/64 90 03/04/18 04:23 03/04/18 04:23 03/04/18 04:23 03/04/18 04:23 03/04/18 04:23 General appearance: Present: A&O X 3, pleasant, no acute distress Exam: . - Head Head exam: Present: atraumatic, normal inspection, normocephalic - Eye Eye exam: Present: EOMI, PERRL - ENT ENT exam: Present: mucous membranes moist, normal oropharynx - Neck Neck exam general surgery: Present: full ROM, supple - Respiratory Respiratory exam: Present: decreased breath sounds (bibasilar), rhonchi (LL lobe ), wheezes (diffuse). Absent: rales, tachypnea - Cardiovascular Cardiovascular exam: Present: +S1, +S2, tachycardia (regular). Absent: diastolic murmur, irregular rhythm, systolic murmur - GI/Abdominal GI/Abdominal exam: Present: normal bowel sounds, soft. Absent: distended, tenderness - Extremities Exam Extremities exam: Present: warm. Absent: pedal edema, tenderness - Neurological Exam Neurological exam: Present: alert, CN II-XII intact, oriented X3, no focal deficits - Skin Skin exam: Present: dry, intact, warm Internal Med - H&P Results - Labs CBC & Chem 7: 03/04/18 01:48 03/04/18 01:48 - Assessment and plan (1) Sepsis Current Visit: Yes Status: Acute Assessment and plan: Patient presents with fever, tachycardia with source presumed to be pneumonia. Patient was given 1 L of fluids in the emergency department. Given the patient' s end-stage renal disease Will cautiously fluid hydrate. We will not give full 30 mL/kg all at once due to concerns for developing pulmonary edema. Despite this on exam I feel the patient is dry and does not need more fluids so we will give intermittent fluid boluses and continually reassess. Blood cultures have been drawn, initial lactate was 2.2, recheck is 1.8. Antibiotics initiated with vancomycin, Zosyn, Levaquin. Qualifiers: Sepsis type: sepsis due to unspecified organism Qualified Code(s): A41.9 - Sepsis, unspecified organism (2) Pneumonia Current Visit: Yes Status: Acute Assessment and plan: Patient presents with left upper lobe opacification on chest x-ray with fevers and cough suggestive of pneumonia. Patient is at risk for multidrug resistant organisms given his frequent healthcare exposure and dialysis treatments therefore we will treat with vancomycin, Levaquin, Zosyn. Blood and sputum cultures are pending, strep and legionella urinary antigens are pending. MRSA nasal swab has been ordered, if negative can likely discontinue vancomycin patient's x-ray findings show a dense masslike consolidation which walk concerning for pneumonia given the patient's clinical picture is also concerning for underlying malignancy therefore we will obtain CT of the chest. Will scheduled DuoNeb's due to shortness of breath and wheezing and as needed Tessalon Perles for cough. Qualifiers: Pneumonia type: due to unspecified organism Laterality: left Lung location: lower lobe of lung Qualified Code(s): J18.1 - Lobar pneumonia, unspecified organism (3) CAD (coronary artery disease) Current Visit: No Status: Chronic Assessment and plan: History of. No active chest pain. Elevated troponin is below. Recent CABG in May 2017. Continue aspirin and statin for now, hold beta claudia due to sepsis and normotensive at this time. Qualifiers: Coronary Disease-Associated Artery/Lesion type: bypass graft [place] vs. transplanted heart: [place] heart Associated angina: without angina Qualified Code(s): I25.810 - Atherosclerosis of coronary artery bypass graft(s) without angina pectoris (4) Elevated troponin Current Visit: No Status: Acute Assessment and plan: Troponin mildly elevated at 0.07. Likely due to underlying sepsis and pneumonia in the setting of end-stage renal disease. No active chest pain, no EKG changes. Doubt cardiac in nature, we will trend. (5) Diabetes Current Visit: No Status: Chronic Assessment and plan: History of type 2 diabetes. Patient states that he takes pills at home for this however there are no antidiabetic medications on his home med list. Will need to be clarified prior to discharge. Sugars mildly elevated on presentation , we will institute sliding scale insulin coverage. 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 No evidence of active bleeding. Continue to monitor. (7) ESRD (end stage renal disease) on dialysis Current Visit: No Status: Chronic Assessment and plan: Patient currently receives dialysis on Wednesday, , Wednesday. He reports he had his regular scheduled dialysis session this . Denies any missed dialysis sessions. No indication for urgent dialysis. Consult nephrology to continue regular scheduled dialysis. (8) DVT prophylaxis Current Visit: No Status: Acute Assessment and plan: Heparin 5000 units subcutaneous twice a day - Time Spent With Patient Total time spent is greater than 50% in coordination of care (as documented) at patient's floor/unit and/or counseling patient:
--- NOTE | 2018-03-04 05:52 | Sepsis Event Note ---
Sepsis Reassessment Note - Evaluation Sepsis Screen: No Definite Risk Current Stage of Sepsis: sepsis Possible Source of Sepsis: pulmonary - Focused Exam Date of Encounter: 03/04/18 Time of Encounter: 05:00 Vital Signs: Vital Signs Temp Pulse Resp BP Pulse Ox 03/04/18 04:23 98.1 F 92 16 113/64 90 03/04/18 04:20 90 03/04/18 03:44 99.5 F 100 106/52 Respiratory Exam: Present: wheezes, rhonchi. Absent: rales, respiratory distress, accessory muscle use Cardiovascular Exam: Present: tachycardia. Absent: irregular rhythm Capillary Refill: < 2 seconds Peripheral Pulse Strength: 3+ normal Peripheral Pulse Location: Radial Skin Exam: normal turgor - Reassessment Comments Comments: Patient remains in sepsis due to pneumonia. Hemodynamically stable. Initially received 1 L of fluids in the emergency department. We will continue to cautiously give fluid boluses intermittently but will not give the total 30 mL/ kg all at once due to the patient being end-stage renal disease and concern for causing fluid overload.
[2018-03-04] MEDS: *HR* Heparin 5,000 UNIT/ML VIAL SQ SCH ×2 (06:08→18:09)
[2018-03-04] MEDS: Ipratropium/Albuterol Neb 3 ML IH SCH ×6 (06:20→23:50)
[2018-03-04] MEDS: Insulin LISPRO 300 UNITS/3 ML VIAL SQ SCH ×4 (08:09→21:33)
[2018-03-04] MEDS: Venlafaxine XR (24 HR) 150 MG CAP.ER.24H PO SCH (09:02)
[2018-03-04] MEDS: Gabapentin 300 MG CAPSULE PO SCH ×3 (09:03→21:25)
[2018-03-04] MEDS: Piperacillin/Tazobactam 3.375 GM in 0.9 % Sodium Chloride Mini Bag 100 ML IVPB SCH ×2 (09:03→21:28)
[2018-03-04] MEDS ORDERED: *HR* LORazepam 2 MG/ML VIAL IVP PRN (13:35)
--- NOTE | 2018-03-04 14:35 | Internal Med Progress Note ---
<Yvrose Lawrence - Last Filed: 03/04/18 17:48> Hospitalist Progress Note - Encounter Date of Encounter: 03/04/18 Time of Encounter: 08:37 - Subjective Interval History: Ike Esquivel is a 77-year-old male with a history of CAD, hypertension, ESRD on dialysis ([facility]), who presented with nonproductive cough for the past month. He was recently seen and treated by his PCP on 02/28 where he was given a Medrol Dosepak, Pro Air, and a 5 day course of azithromycin as well as a steroid injection in the office. He reports that he continued to worsen during treatment and was coughing so bad that he was SOB. Patient also reports subjective fever and chills prior to presentation. He denies any nausea, vomiting, diarrhea, dysuria, hematuria, hemoptysis, or weight loss. He has had 2 other hospitalizations in the past 3 months. On presentation he met sepsis criteria; febrile at 101.1, tachycardic at 13, RR 21, with a lactate of 2.2. He was started on Vanc, Zosyn, and Levaquin. He was found to have multifocal PNA on chest CT. He was lying comfortably in bed this morning and reports feeling somewhat better. He feels that the supplemental oxygen is helping him. He denies using supplemental oxygen at home. He continues to have a nonproductive cough. He admits to some chest pain as a result of his excessive coughing. He denies lightheadedness, dizziness, SOB, radiation of pain, dysuria, or hematuria. He denies current or history of excessive alcohol use and appeared unaware of having hepatic cirrhosis. - Exam Vitals: Temp Pulse Resp BP Pulse Ox 98.7 F 112 16 119/72 94 03/04/18 12:30 03/04/18 12:30 03/04/18 12:30 03/04/18 12:30 03/04/18 12:30 Exam: Gen: Lying comfortably in bed. NAD. Obese. Heart: RRR, normal S1 and S2, no murmurs Lungs: Decreased breath sounds in anterior lung pastor. Bibasilar crackles posteriorly. No wheezing noted. Abd: Soft, non-tender, non-distended, BSx4 Ext: No LE edema, no cyanosis Skin: warm, dry - Assessment and Plan (1) Multifocal pneumonia Current Visit: Yes Status: Acute Assessment and Plan: Likely secondary to multiple hospital admissions over the past several months. At risk for multi-drug resistant organisms. Patient reports cough x 1 month, failed outpatient treatment CT chest 03/04 - ground-glass and nodular opacities in a bronchovascular distribution within the ALDO. More focal consolidation is seen posteriorly. Loculated left pleural effusion with adjacent round atelectasis. Airspace opacities in the right lower lobe which may represent infection or aspiration. WBC 9.7 Influenza negative Blood cultures pending Sputum cultures pending MRSA nasal swab negative Continue Zosyn and Levaquin (day 1) Discontinued Vanc d//t negative MRSA swab UA pending collection Legionella and S. Pneumo antigens pending collection (2) Sepsis Current Visit: Yes Status: Resolved Assessment and Plan: Likely secondary to multifocal PNA found on CT chest On presentation met sepsis criteria; febrile at 101.1, tachycardic at 13, RR 21 , with a lactate of 2.2. Vitals stable - AF, no longer tachycardic, tachypneic Lactate 1.8 this morning Cont. Zosyn and Levaquin (day 1) Discontinued Vanc d/t negative MRSA swab Will continue to monitor closely (3) Diabetes Current Visit: Yes Status: Chronic Assessment and Plan: Chronic T2DM. Unconfirmed oral meds at home. Continue low dose SSI Will continue to monitor (4) Diastolic CHF, chronic Current Visit: Yes Status: Chronic Assessment and Plan: Chronic, not in decompensation ECHO 08/15 - EF 55%, mild LVH, Mild diastolic dysfunction, mild pulm htn Continue to hold BB due to hypotension and sepsis (5) HTN (hypertension) Current Visit: Yes Status: Chronic Assessment and Plan: Initially hypertensive in the 170s systolic on presentation Currently running in the low 100s to 120s Continue to hold antihypertensives for now. Will monitor closely. (6) CKD (chronic kidney disease) stage 4, GFR 15-29 ml/min Current Visit: Yes Status: Chronic Assessment and Plan: ESRD on dialysis T,Th,S Had dialysis yesterday, denies missed sessions Cr 4.42 today, slightly increased from baseline Nephro following to continue regular dialysis schedule (7) Elevated troponin Current Visit: Yes Status: Acute Assessment and Plan: Mildly elevated on presentation at 0.07, likely secondary to demand ischemia and ESRD, less likely cardiac cause Repeat trops 0.09 --> 0.08 (8) Liver cirrhosis Current Visit: Yes Status: Chronic Assessment and Plan: Chronic, unknown etiology CT chest 03/04 - Cirrhosis with abdominal ascites Hep panel negative in 01/15 Patient denies current or previous excessive alcohol use Abdomen soft, non-distended Recommend outpatient follow-up for further workup (9) HLD (hyperlipidemia) Current Visit: Yes Status: Chronic Assessment and Plan: Chronic. Continue home statin (10) CAD (coronary artery disease) Current Visit: Yes Status: Chronic Assessment and Plan: Recent CABG in may 2017 Chest pain reported but more likely MSK etiology d/t coughing excessively Troponin elevation adynamic and more likely d/t demand ischemia and ESRD, less likely cardiac in origin Continue Aspirin, Plavix, and statin Holding BB due to sepsis and hypotension Will continue to monitor closely (11) Anemia Current Visit: Yes Status: Chronic Assessment and Plan: Chronic, Hgb at baseline Will monitor closely DVT Prophylaxis: SQ Heparin - Time Spent with Patient Total time spent is greater than 50% in coordination of care (as documented) at patient's floor/unit and/or counseling patient: Internal Medicine: Result - Labs CBC & Chem 7: 03/04/18 01:48 03/04/18 01:48 Labs: Cardiac Enzymes 03/04/18 03/04/18 Range/Units 07:38 13:07 Troponin I 0.09 H* 0.08 H* (< 0.04) ng/mL - Impressions Impressions Chest CT 03/04/18 08:00 IMPRESSION: 1. Gground-glass and nodular opacities in a bronchovascular distribution within the left upper lobe. More focal consolidation is seen posteriorly. Findings are most suggestive of infection. Recommend treating the patient and following to resolution. 2. Loculated left pleural effusion with adjacent round atelectasis. 3. Airspace opacities in the right lower lobe which may represent infection or aspiration. 4. Severe coronary artery atherosclerosis. Patient is status post CABG. 5. Cirrhosis with abdominal ascites. D/ / 03/04/2018 08:55:31 Yanelis Pierson MD / lui Interpreting Provider: Yanelis Pierson MD Consult Discharge Plan - Plan Referrals: Analilia Montero CNP [Primary Care Provider] - <Jacqueline Treviño - Last Filed: 03/04/18 19:08> Hospitalist Progress Note - Encounter Date of Encounter: 03/04/18 - Exam Vitals: Temp Pulse Resp BP Pulse Ox 98.5 F 91 16 89/49 91 03/04/18 16:55 03/04/18 16:55 03/04/18 16:55 03/04/18 16:55 03/04/18 16:55 - Assessment and Plan (1) CAD (coronary artery disease) Current Visit: Yes Status: Chronic (2) Diabetes Current Visit: Yes Status: Chronic (3) DVT prophylaxis Current Visit: No Status: Acute (4) Elevated troponin Current Visit: Yes Status: Acute (5) Thrombocytopenia Current Visit: No Status: Chronic (6) ESRD (end stage renal disease) on dialysis Current Visit: No Status: Chronic (7) Sepsis Current Visit: Yes Status: Resolved (8) Pneumonia Current Visit: Yes Status: Acute - Time Spent with Patient Total time spent is greater than 50% in coordination of care (as documented) at patient's floor/unit and/or counseling patient: Internal Medicine: Result - Labs CBC & Chem 7: 03/04/18 01:48 03/04/18 01:48 Labs: Cardiac Enzymes 03/04/18 03/04/18 Range/Units 07:38 13:07 Troponin I 0.09 H* 0.08 H* (< 0.04) ng/mL - Impressions Impressions Chest CT 03/04/18 08:00 IMPRESSION: 1. Gground-glass and nodular opacities in a bronchovascular distribution within the left upper lobe. More focal consolidation is seen posteriorly. Findings are most suggestive of infection. Recommend treating the patient and following to resolution. 2. Loculated left pleural effusion with adjacent round atelectasis. 3. Airspace opacities in the right lower lobe which may represent infection or aspiration. 4. Severe coronary artery atherosclerosis. Patient is status post CABG. 5. Cirrhosis with abdominal ascites. D/ / 03/04/2018 08:55:31 Yanelis Pierson MD / [email or web address] Interpreting Provider: Yanelis Pierson MD - Attending Attestation I examined this patient and my medical decision-making was reviewed with the Resident Physician Dr Lawrence. I agree with the documented findings, disposition and treatment plan as described except to the extent set forth below. Pt admitted with multifocal pna and suspected uti with chronic [place] catheter. Awake,a lert, pleasant, overall fatigued, cough and difficulty clearing sputum. No wheezing, no sob at rest at this time. Denies current fever, chills, nausea or emesis. gen- alert, awake,appears stated age cv- reg rate and rhythm, normal s1,s2, no murmurs appreciated lungs- normal resp effort, diminsihed throughout, no wheezing, + crackles bl bases abd- soft, non tender, non distended, + bs neuro- AAOx3, sepsis 2/2 to multi focal pna and suspected uti, resolved -see treatment below multifocal pna- cont zosyn + levaquin, mrsa swab neg,, add mucinex, nebs, no steroids at this time due to no wheezing, add as needed, check sputum cxs and legionella, strep ag UA with suspected UTI- cx pending, abx as above, Trop elevation, mild, stable and 2/2 most likely to ESRD, perhaps mild demand ischemia with sepsis presentation, he is asx, ekg without acute ischemic changes and no changes from prior <Yvrose Lawrence - Last Filed: 03/04/18 17:48> (2) Sepsis Qualifiers: Sepsis type: sepsis due to unspecified organism Qualified Code(s): A41.9 - Sepsis, unspecified organism (3) Diabetes Qualifiers: Diabetes mellitus type: type 2 Diabetes mellitus remote computer terminal operator insulin use: without remote computer terminal operator use Diabetes mellitus complication status: with kidney complications Diabetes mellitus complication detail: with chronic kidney disease Chronic kidney disease stage: on chronic dialysis Qualified Code(s): E11.22 - Type 2 diabetes mellitus with diabetic chronic kidney disease; N18.6 - End stage renal disease; Z99.2 - Dependence on renal dialysis (5) HTN (hypertension) Qualifiers: Hypertension type: essential hypertension Qualified Code(s): I10 - Essential (primary) hypertension (8) Liver cirrhosis Qualifiers: Hepatic cirrhosis type: alcoholic cirrhosis Ascites presence: with ascites Qualified Code(s): K70.31 - Alcoholic cirrhosis of liver with ascites (9) HLD (hyperlipidemia) Qualifiers: Hyperlipidemia type: pure hypercholesterolemia Qualified Code(s): E78.00 - Pure hypercholesterolemia, unspecified; E78.0 - Pure hypercholesterolemia (10) CAD (coronary artery disease) Qualifiers: Coronary Disease-Associated Artery/Lesion type: bypass graft [place] vs. transplanted heart: iroquois heart Associated angina: without angina Qualified Code(s): I25.810 - Atherosclerosis of coronary artery bypass graft(s) without angina pectoris (11) Anemia Qualifiers: Anemia type: due to chronic kidney disease Chronic kidney disease stage: unspecified stage Qualified Code(s): N18.9 - Chronic kidney disease, unspecified; D63.1 - Anemia in chronic kidney disease <Jacqueline Treviño - Last Filed: 03/04/18 19:08> (1) CAD (coronary artery disease) Qualifiers: Coronary Disease-Associated Artery/Lesion type: bypass graft [place] vs. transplanted heart: [place]ois heart Associated angina: without angina Qualified Code(s): I25.810 - Atherosclerosis of coronary artery bypass graft(s) without angina pectoris (2) Diabetes Qualifiers: Diabetes mellitus type: type 2 Diabetes mellitus prison insulin use: without prison use Diabetes mellitus complication status: with kidney complications Diabetes mellitus complication detail: with chronic kidney disease Chronic kidney disease stage: on chronic dialysis Qualified Code(s): E11.22 - Type 2 diabetes mellitus with diabetic chronic kidney disease; N18.6 - End stage renal disease; Z99.2 - Dependence on renal dialysis (7) Sepsis Qualifiers: Sepsis type: sepsis due to unspecified organism Qualified Code(s): A41.9 - Sepsis, unspecified organism (8) Pneumonia Qualifiers: Pneumonia type: due to unspecified organism Laterality: left Lung location: lower lobe of lung Qualified Code(s): J18.1 - Lobar pneumonia, unspecified organism
[2018-03-04] MEDS ORDERED: 0.9 % Sodium Chloride 500 ML IVC ONE ×2 (16:02→18:17)
--- NOTE | 2018-03-04 18:54 | Nephrology Consult Note ---
Date of Encounter: 03/04/18 Time of Encounter: 16:00 Assessment and Plan (1) ESRD (end stage renal disease) on dialysis Current Visit: No Status: Chronic Lytes stable No acute indication for HD today Will plan for HD tomorrow per his regimen Renal diet advised (2) Anemia Current Visit: Yes Status: Acute Hgb noted at 10. Goal is hgb >10, will monitor Qualifiers: Anemia type: due to chronic kidney disease Chronic kidney disease stage: unspecified stage Qualified Code(s): N18.9 - Chronic kidney disease, unspecified; D63.1 - Anemia in chronic kidney disease (3) Pneumonia Current Visit: Yes Status: Acute Continue abx per primary team Qualifiers: Pneumonia type: due to unspecified organism Laterality: left Lung location: lower lobe of lung Qualified Code(s): J18.1 - Lobar pneumonia, unspecified organism History of Present Illness - Reason for Consult Consult date: 03/04/18 end stage renal disease Requesting physician: Gamaliel Lewis - History of Present Illness 77 y o male with PMh of HTN, CAD s/p CABG, liver cirrhosis and newly ESRD on HD TTS admitted with persistent cough not improved with outpatient abx and steroids. CXR and CT chest consistent with PNA. Renal consulted for ESRD managment. Pt received full treatment yesterday and will be due to routine HD tomorrow. Pt seen and examined resting comfortably but easily arousable with no visible sinsg of respiratory distress or fluid overload. Past Med Surg Social Fam HX - Past Medical History Medical history: aortic aneurysm, arthritis, coronary artery disease, diabetes, hyperlipidemia, hypertension, renal disease Additional medical history: BLADDER NECK CONTRACTURE, SQUAMOUS CELL CANCER Psychiatric history: anxiety, depression - Past Surgical History Surgical History: angioplasty/stent, coronary bypass (CABG), orthopedic, other, other Additional surgical history: BACK SURGERY 1998, RIGHT HAND MIDDLE FINGER AMPUTATION - Social History Smoking Status: Never smoker Smokeless Tobacco Status: No Alcohol use: none Drug use: none - Family History Father Adopted: No Family Member Ethnicity: Non- Living Status: Hx Family Cardiac Disorders: Yes Mother Adopted: No Family Member Ethnicity: Non- Living Status: Hx Family Cancer: Yes Brother History Unknown: Yes Family Member Ethnicity: Non- Living Status: Still Living Sister History Unknown: Yes Adopted: No Family Member Ethnicity: Non- Living Status: Still Living Hx Family Cardiac Disorders: Yes Hx Family Respiratory Disorders: No Hx Family Cancer: Yes Hx Family GI Disorders: No Hx Family Endocrine Disorder: Yes Hx Family Neuromuscular Disorders: No Hx Family Neurologic Disorders: No Hx Family HEENT Disorders: No Hx Family Autoimmune Disorders: No Medications and Allergies Atorvastatin Calcium [Lipitor] 20 mg PO HS 01/15/18 [History] Clopidogrel [Plavix] 75 mg PO DAILY 01/15/18 [History] Furosemide [Lasix] 40 mg PO DAILY 01/15/18 [History] Gabapentin [Neurontin] 300 mg PO TID 01/15/18 [History] Venlafaxine XR (24 HR) [Effexor Xr] 150 mg PO DAILY 01/15/18 [History] Trazodone HCl 100 mg PO HS PRN 01/31/18 [History] Metoprolol XL (24 HR) Succ [Toprol Xl] 200 mg PO DAILY tab.er.24h 02/01/18 [Rx] Azithromycin [Azithromycin 6-Tab Pack] 250 mg PO PER PKG DI 03/04/18 [History] Losartan Potassium [Cozaar] 50 mg PO DAILY 03/04/18 [History] MethylPREDNISolone [MethylPREDNISolone Dose Pack] 4 mg PO AD 03/04/18 [History] hydrOXYzine HCl [Hydroxyzine HCl] 25 mg PO Q8H PRN 03/04/18 [History] 3 Allergy/AdvReac Type Severity Reaction Status Date / Time No Known Allergies Allergy Verified 01/31/18 10:47 Review of Systems All Systems review (narrative): The rest of the systems (10)are negative Constitutional: chills (reports), fever(s) (reports) Cardiovascular: chest pain (denies), leg edema (denies) Respiratory: cough (reports) Exam - Vital Signs Vital signs: Initial Vital Signs Temp Pulse Resp BP Pulse Ox 101.1 F H 103 21 171/99 94 03/04/18 00:59 03/04/18 00:59 03/04/18 00:59 03/04/18 00:59 03/04/18 00:59 Vital Signs - Last 8 Hours Temp Pulse Resp BP Pulse Ox 03/04/18 16:55 98.5 F 91 16 89/49 91 03/04/18 16:32 18 92 03/04/18 12:30 98.7 F 112 16 119/72 94 Intake and Output 03/04/18 03/04/18 03/04/18 07:59 15:59 23:59 Intake Total 0 / 20 Output Total 0 / 0 Balance 0 / 20 Intake: Oral 0 / 0 Output: Urine 0 / 0 Other: Weight 95.5 kg Blood Glucose* 123 147 Patient Weight 03/04/18 23:59 Weight 95.5 kg - General Appearance General appearance: chronically ill (NAD) EENT: ATNC, PERRL Neck: no JVD, supple Respiratory: course breath sounds Cardiology: no edema, normal S1, normal S2 Gastrointestinal: no tenderness, no guarding Integumentary: warm and dry Neurologic: no focal deficit Musculoskeletal: no deformities Psychiatric: mood/affect appropriate, cooperative Results - Lab Results 03/06/18 00:57 03/06/18 00:57 Most recent lab results Calcium 7.7 mg/dL (8.6-10.3) L 03/04/18 01:48 Consult Discharge Plan - Plan Referrals: Analilia Montero [employer] [Primary Care Provider] -
[2018-03-04] MEDS: hydrOXYzine pamoate 25 MG CAPSULE PO PRN (23:23)
[2018-03-05] MEDS: Ipratropium/Albuterol Neb 3 ML IH SCH ×5 (04:34→21:13)
[2018-03-05] MEDS: *HR* Heparin 5,000 UNIT/ML VIAL SQ SCH (06:00)
[2018-03-05] MEDS: Benzonatate 100 MG CAPSULE PO PRN (06:04)
[2018-03-05] MEDS ORDERED: Aminoglycoside Consult 1 EACH MC ONE (07:44)
[2018-03-05 07:58] LABS: Basophils % 0.2 %; Eosinophils % 0.5 %; Hematocrit 31.1 % (37.5-50.1); Hemoglobin 9.3 g/dL (12.9-16.9); Immature Granulocytes % 0.3 % (0-4); Lymphocytes # 0.5 K/mcL (0.6-4.6); Lymphocytes % 7.3 %; Mean Corpuscular HGB Conc 29.9 g/dL (31.6-35.5); Mean Corpuscular Hemoglobin 27.4 pg (28.0-33.3); Mean Corpuscular Volume 91.7 fL (83.0-100.0); Mean Platelet Volume 9.4 fL (9.4-12.4); Monocytes # 0.5 K/mcL (0.0-1.3); Monocytes % 7.8 %; Neutrophils # 5.1 K/mcL (1.6-8.9); Platelet Count 100 K/mcL (140-400); Red Blood Count 3.39 M/mcL (4.19-5.50); Red Cell Distribution Width 17.4 % (11.5-14.5); Segmented Neutrophils % 83.9 %
[2018-03-05] MEDS ORDERED: 0.9 % Sodium Chloride 1,000 ML ONE (07:58)
[2018-03-05] MEDS: Insulin LISPRO 300 UNITS/3 ML VIAL SQ SCH ×4 (08:20→21:25)
[2018-03-05] MEDS: Venlafaxine XR (24 HR) 150 MG CAP.ER.24H PO SCH (08:23)
[2018-03-05] MEDS: Gabapentin 300 MG CAPSULE PO SCH ×3 (08:23→21:21)
[2018-03-05] MEDS: hydrOXYzine pamoate 25 MG CAPSULE PO PRN ×2 (08:26→18:33)
[2018-03-05] MEDS ORDERED: Folic Acid 1 MG TABLET PO SCH (09:00)
[2018-03-05] MEDS ORDERED: Thiamine (B-1) 100 MG TABLET PO SCH (09:00)
[2018-03-05 09:48] LABS: Potassium 4.8 mEq/L (3.5-5.1)
[2018-03-05 09:52] LABS: Hepatitis B Surface Antigen Nonreactive (Nonreactive)
[2018-03-05] MEDS ORDERED: predniSONE 20 MG TABLET PO SCH (10:00)
[2018-03-05] MEDS: Piperacillin/Tazobactam 3.375 GM in 0.9 % Sodium Chloride Mini Bag 100 ML IVPB SCH ×2 (10:07→21:25)
--- NOTE | 2018-03-05 11:11 | Internal Med Progress Note ---
Hospitalist Progress Note - Encounter Date of Encounter: 03/05/18 Time of Encounter: 08:20 - Subjective Interval History: awake, new wheezing, starting to bring up some sputum but hard to clear, uk color. No sob at rest but sob with coughing episodes. deneis fevers, chills, nausea, emesis. Poor sleep last night. No suprapubic tenderness, back pain. - Exam Vitals: Temp Pulse Resp BP Pulse Ox 98.3 F 75 16 122/70 93 03/05/18 08:03 03/05/18 08:03 03/05/18 08:03 03/05/18 08:03 03/05/18 08:03 Exam: General: awake, alert, appears stated age HEENT:EOM intact, pupils equal, round, moist mucus membranes Neck: supple, trachea midline Cardiovascular:regular rate and rhythm, normal S1 & S2, no murmurs, no jvd, no lower extremity edema Lungs:diminshed bs throughout with exp wheezing, + rhonchi Abdomen:Soft, non-tender, non-distended, no rigidity, + bowel sounds Neurological: AAOx3 : chronic [place] cath with clear yellow urine - Assessment and Plan (1) Sepsis Current Visit: Yes Status: Resolved Assessment and Plan: Likely secondary to multifocal PNA found on CT chest On presentation met sepsis criteria; febrile at 101.1, tachycardic at 103, RR 21 , with a lactate of 2.2. Sepsis resolved CT Chest 03/04/18: 1.ground-glass and nodular opacities in a bronchovascular distribution within the left upper lobe. More focal consolidation is seen posteriorly. Findings are most suggestive of infection. Recommend treating the patient and following to resolution. 2. Loculated left pleural effusion with adjacent round atelectasis. 3. Airspace opacities in the right lower lobe which may represent infection or aspiration. -Cont. Zosyn and Levaquin (day 2) -Vanc stopped with negative MRSA swab -influenza neg, legionella and strep remain pending collection -sputum cx prelim few gpc and mod gnr -bl cxs ngtd -ua not yet collected, re ordered and reflex to cx (2) Multifocal pneumonia Current Visit: Yes Status: Acute Assessment and Plan: As documented above He does appear to have loculated effusion -if no clinical improvement in next 24-48hrs or clinical decompensation, will contact IR to further assess and be certain this is not an empyema -iv abx as above -sputum, legionella, strep ag, flu as above -mucinex, nebs -add daily IV steroids (3) Diabetes Current Visit: Yes Status: Chronic Assessment and Plan: Chronic T2DM. Unconfirmed oral meds at home. Continue low dose SSI Will continue to monitor (4) CAD (coronary artery disease) Current Visit: Yes Status: Chronic Assessment and Plan: Recent CABG in may 2017 Chest pain reported but more likely MSK etiology d/t coughing excessively Troponin elevation adynamic and more likely d/t mild demand ischemia and ESRD, less likely cardiac in origin Continue Aspirin, Plavix, and statin Holding BB due to sepsis and hypotension Will continue to monitor closely (5) Elevated troponin Current Visit: Yes Status: Acute Assessment and Plan: Mildly elevated on presentation at 0.07, likely secondary to mild demand ischemia + ESRD, less likely cardiac cause Repeat trops 0.09 --> 0.08 (6) Thrombocytopenia Current Visit: No Status: Chronic Assessment and Plan: Platelets 130 on presentation, mildly low, appears chronic for patient. No evidence of active bleeding. decreased to 100--10/6 heparin held and scds placed for vte ppx given decrease (7) ESRD (end stage renal disease) on dialysis Current Visit: No Status: Chronic Assessment and Plan: ESRD on dialysis T,Th,S Cr 4.42, slightly increased from baseline on admit Nephro following to continue regular dialysis schedule (8) DVT prophylaxis Current Visit: No Status: Acute Assessment and Plan: now scds (9) Anemia Current Visit: Yes Status: Chronic Assessment and Plan: Chronic likely 2/2 anemia of chronic disease, Hgb at baseline at admit Will monitor closely, arash with low platelets (10) Diastolic CHF, chronic Current Visit: Yes Status: Chronic Assessment and Plan: Chronic, not in decompensation ECHO 08/15 - EF 55%, mild LVH, Mild diastolic dysfunction, mild pulm htn Continue to hold BB due to hypotension and sepsis (11) HLD (hyperlipidemia) Current Visit: Yes Status: Chronic Assessment and Plan: cont statin (12) HTN (hypertension) Current Visit: Yes Status: Chronic Assessment and Plan: Initially hypertensive in the 170s systolic on presentation Currently running in the low 100s to 120s Continue to hold antihypertensives for now. Will monitor closely. (13) Liver cirrhosis Current Visit: Yes Status: Chronic Assessment and Plan: Chronic, unknown etiology CT chest 03/04 - Cirrhosis with abdominal ascites Hep panel negative in 01/15 Patient denies current or previous excessive alcohol use, and confirmed by family Recommend outpatient follow-up for further workup - Time Spent with Patient Total time spent is greater than 50% in coordination of care (as documented) at patient's floor/unit and/or counseling patient: Internal Medicine: Result - Labs CBC & Chem 7: 03/05/18 07:47 03/05/18 07:47 Labs: Short CBC 03/05/18 Range/Units 07:47 WBC 6.1 (4.3-11.1) K/mcL Hgb 9.3 L (12.9-16.9) g/dL Hct 31.1 L (37.5-50.1) % Plt Count 100 L (140-400) K/mcL Neutrophils # 5.1 (1.6-8.9) K/mcL BMP 03/05/18 07:47 Sodium 135 L Potassium 4.8 Chloride 101 Carbon Dioxide 23 BUN 55 H Creatinine 5.95 H Glucose 86 Calcium 8.0 L Cardiac Enzymes 03/04/18 Range/Units 13:07 Troponin I 0.08 H* (< 0.04) ng/mL - Impressions Impressions Chest CT 03/04/18 08:00 IMPRESSION: 1. Gground-glass and nodular opacities in a bronchovascular distribution within the left upper lobe. More focal consolidation is seen posteriorly. Findings are most suggestive of infection. Recommend treating the patient and following to resolution. 2. Loculated left pleural effusion with adjacent round atelectasis. 3. Airspace opacities in the right lower lobe which may represent infection or aspiration. 4. Severe coronary artery atherosclerosis. Patient is status post CABG. 5. Cirrhosis with abdominal ascites. D/ / 03/04/2018 08:55:31 Yanelis Pierson MD / lui Interpreting Provider: Yanelis Pierson MD Consult Discharge Plan - Plan Referrals: Analilia Montero, HEATING OPERATORS ENGINEER [Primary Care Provider] - (1) Sepsis Qualifiers: Sepsis type: sepsis due to unspecified organism Qualified Code(s): A41.9 - Sepsis, unspecified organism (3) Diabetes Qualifiers: Diabetes mellitus type: type 2 Diabetes mellitus valve pipe irrigator insulin use: without valve pipe irrigator use Diabetes mellitus complication status: with kidney complications Diabetes mellitus complication detail: with chronic kidney disease Chronic kidney disease stage: on chronic dialysis Qualified Code(s): E11.22 - Type 2 diabetes mellitus with diabetic chronic kidney disease; N18.6 - End stage renal disease; Z99.2 - Dependence on renal dialysis (4) CAD (coronary artery disease) Qualifiers: Coronary Disease-Associated Artery/Lesion type: bypass graft [place] vs. transplanted heart: [place] heart Associated angina: without angina Qualified Code(s): I25.810 - Atherosclerosis of coronary artery bypass graft(s) without angina pectoris (9) Anemia Qualifiers: Anemia type: due to chronic kidney disease Chronic kidney disease stage: unspecified stage Qualified Code(s): N18.9 - Chronic kidney disease, unspecified; D63.1 - Anemia in chronic kidney disease (11) HLD (hyperlipidemia) Qualifiers: Hyperlipidemia type: pure hypercholesterolemia Qualified Code(s): E78.00 - Pure hypercholesterolemia, unspecified; E78.0 - Pure hypercholesterolemia (12) HTN (hypertension) Qualifiers: Hypertension type: essential hypertension Qualified Code(s): I10 - Essential (primary) hypertension (13) Liver cirrhosis Qualifiers: Hepatic cirrhosis type: alcoholic cirrhosis Ascites presence: with ascites Qualified Code(s): K70.31 - Alcoholic cirrhosis of liver with ascites
[2018-03-05] MEDS ORDERED: *HR* Heparin 10,000 UNIT/10 ML VIAL IV PRN (11:26)
[2018-03-05] MEDS ORDERED: 0.9 % Sodium Chloride 250 ML IVC PRN (11:26)
[2018-03-05] MEDS ORDERED: 0.9 % Sodium Chloride 1,000 ML PRIME SCH (11:30)
[2018-03-05] MEDS: Melatonin 3 MG TABLET PO SCH (21:21)
[2018-03-05 23:08] LABS: Bilirubin,Urine Negative (Negative); Blood,Urine Trace (Negative); Glucose,Urine (UA) 100 mg/dL (Normal); Ketones,Urine Negative (Negative); Leukocyte Esterase,Urine Moderate (Negative); Nitrite,Urine Negative (Negative); Protein,Urine >=1000 mg/dL (Neg-Trace); Specific Gravity,Urine 1.012 (1.010-1.025); Urobilinogen,Urine Normal (Normal)
[2018-03-05 23:11] LABS: Bacteria,Urine Few per hpf (None-Few); Hyaline Casts,Urine Few per lpf (None-Few); Squamous Epithelial Cell,Urine Many per lpf (None-Few); WBC,Urine TNTC per hpf (0-3)
[2018-03-05 23:21] LABS: Clarity,Urine Slightly Cloudy (Clear); Color,Urine Dark Yellow (Yellow)
[2018-03-05 23:27] LABS: Uric Acid Crystals,Urine Present
[2018-03-06] MEDS: Ipratropium/Albuterol Neb 3 ML IH SCH ×7 (00:22→23:11)
[2018-03-06 01:40] LABS: Hematocrit 27.2 % (37.5-50.1); Hemoglobin 8.6 g/dL (12.9-16.9); Immature Granulocytes % 0.5 % (0-4); Lymphocytes # 0.4 K/mcL (0.6-4.6); Lymphocytes % 5.9 %; Mean Corpuscular HGB Conc 31.6 g/dL (31.6-35.5); Mean Corpuscular Hemoglobin 27.7 pg (28.0-33.3); Mean Corpuscular Volume 87.7 fL (83.0-100.0); Mean Platelet Volume 9.8 fL (9.4-12.4); Monocytes # 0.4 K/mcL (0.0-1.3); Monocytes % 6.8 %; Neutrophils # 5.1 K/mcL (1.6-8.9); Platelet Count 113 K/mcL (140-400); Red Cell Distribution Width 17.4 % (11.5-14.5); Segmented Neutrophils % 86.8 %
[2018-03-06 01:59] LABS: Calcium 8.2 mg/dL (8.6-10.3); Magnesium 2.2 mg/dL (1.6-2.6); Potassium 3.9 mEq/L (3.5-5.1)
[2018-03-06] MEDS: Levofloxacin 500 MG/100 ML 500 MG/100 ML BAG IVPB SCH (04:47)
[2018-03-06] MEDS ORDERED: Levofloxacin 750 MG/150 ML 750 MG/150 ML BAG IVPB SCH (05:00)
[2018-03-06] MEDS: Insulin LISPRO 300 UNITS/3 ML VIAL SQ SCH ×4 (08:29→20:37)
--- NOTE | 2018-03-06 08:33 | Internal Med Progress Note ---
Hospitalist Progress Note - Encounter Date of Encounter: 03/06/18 Time of Encounter: 09:40 - Subjective Interval History: awake, feeling some improvement in breathing today, easier to move air, denies wheezing, + cough, now able to clear some sputum, he is unsure of color. Denies fevers, chills, chest pain, n/v. He has chronci anxiety and is feeling anxious here. - Exam Vitals: Temp Pulse Resp BP Pulse Ox 97.8 F 81 18 142/89 93 03/06/18 07:33 03/06/18 07:33 03/06/18 08:11 03/06/18 08:11 03/06/18 08:11 Exam: General: awake, alert, appears stated age HEENT:EOM intact, pupils equal, round, moist mucus membranes Neck: supple, trachea midline Cardiovascular:regular rate and rhythm, normal S1 & S2, no murmurs, no jvd, no lower extremity edema Lungs:improved anterior aeration, no wheezing, + rhonchi rigth base, diminished bs left base. norm resp effort on o2 nc Abdomen:Soft, non-tender, non-distended, no rigidity, + bowel sounds Neurological: AAOx3 : chronic [place] cath - Assessment and Plan (1) Sepsis Current Visit: Yes Status: Resolved Assessment and Plan: Likely secondary to multifocal PNA found on CT chest On presentation met sepsis criteria; febrile at 101.1, tachycardic at 103, RR 21 , with a lactate of 2.2. Sepsis resolved CT Chest 03/04/18: 1.ground-glass and nodular opacities in a bronchovascular distribution within the left upper lobe. More focal consolidation is seen posteriorly. Findings are most suggestive of infection. Recommend treating the patient and following to resolution. 2. Loculated left pleural effusion with adjacent round atelectasis. 3. Airspace opacities in the right lower lobe which may represent infection or aspiration. -Cont. Zosyn and Levaquin (day 3) -Vanc stopped with negative MRSA swab shortly after admit -influenza neg, legionella and strep remain pending collection -sputum cx prelim few gpc and mod gnr -bl cxs ngtd -ua no nitrtites, mod LE, many sqaum, tntc wbc, no cx indicated on reflex he remains afebrile, no leukocytosis (2) Multifocal pneumonia Current Visit: Yes Status: Acute Assessment and Plan: As documented above He does appear to have loculated effusion -if no clinical improvement in next 24-48hrs or clinical decompensation, will contact IR to further assess and be certain this is not an empyema wednesday or sooner as needed -iv abx as above -sputum, legionella, strep ag, flu as above -mucinex, nebs -daily IV steroids -if any resp decomp will repeat CT chest to assess loculated effusion, or if possible emypema or given dropping hgb on plavix with thromboytopenia, blood-- at this time however he is clinically imrpoving with stable o2 sats on o2 NC (3) Diabetes Current Visit: Yes Status: Chronic Assessment and Plan: Chronic T2DM. Unconfirmed oral meds at home. Continue low dose SSI Will continue to monitor, bs at goal (4) CAD (coronary artery disease) Current Visit: Yes Status: Chronic Assessment and Plan: Recent CABG in may 2017 Chest pain reported but more likely MSK etiology d/t coughing excessively Troponin elevation adynamic and more likely d/t mild demand ischemia and ESRD, less likely cardiac in origin Correction he is not on aspirin at home, cont Plavix, and statin Holding BB due to sepsis and hypotension Will continue to monitor closely (5) Elevated troponin Current Visit: Yes Status: Acute Assessment and Plan: Mildly elevated on presentation at 0.07, likely secondary to mild demand ischemia + ESRD, less likely cardiac cause Repeat trops 0.09 --> 0.08 (6) Thrombocytopenia Current Visit: No Status: Chronic Assessment and Plan: Platelets 130 on presentation, mildly low, appears chronic for patient. No evidence of active bleeding. decreased to 100--10/6 heparin held and scds placed for vte ppx given decrease (7) ESRD (end stage renal disease) on dialysis Current Visit: No Status: Chronic Assessment and Plan: ESRD on dialysis T,Th,S Cr 4.42, slightly increased from baseline on admit Nephro following to continue regular dialysis schedule (8) DVT prophylaxis Current Visit: No Status: Acute Assessment and Plan: now scds (9) Anemia Current Visit: Yes Status: Acute Assessment and Plan: Acute on Chronic likely 2/2 anemia of chronic disease, rule out bleeding elsehwere, none noted onexam or in pt report of symptoms Hgb at baseline at admit Will monitor closely, arash with low platelets -first ua with trace blood, will repeat, check fobt (10) Diastolic CHF, chronic Current Visit: Yes Status: Chronic Assessment and Plan: Chronic, not in decompensation ECHO 08/15 - EF 55%, mild LVH, Mild diastolic dysfunction, mild pulm htn Continue to hold BB due to hypotension and sepsis on admit, resp status (11) HLD (hyperlipidemia) Current Visit: Yes Status: Chronic Assessment and Plan: cont statin (12) HTN (hypertension) Current Visit: Yes Status: Chronic Assessment and Plan: Initially hypertensive in the 170s systolic on presentation Currently running up to 140s sbp, at goal Continue to hold antihypertensives for now. Will monitor closely. (13) Liver cirrhosis Current Visit: Yes Status: Chronic Assessment and Plan: Chronic, unknown etiology CT chest 03/04 - Cirrhosis with abdominal ascites Hep panel negative in 01/15 Patient denies current or previous excessive alcohol use, and confirmed by family Recommend outpatient follow-up for further workup (14) Anxiety Current Visit: Yes Status: Chronic Assessment and Plan: cont home vistaril add buspar melatonin hs DVT Prophylaxis: Scd - Time Spent with Patient Total time spent is greater than 50% in coordination of care (as documented) at patient's floor/unit and/or counseling patient: 25 - 35 minutes Plan of Care Discussed with: patient Internal Medicine: Result - Labs CBC & Chem 7: 03/06/18 00:57 03/06/18 00:57 Labs: Short CBC 03/06/18 Range/Units 00:57 WBC 5.9 (4.3-11.1) K/mcL Hgb 8.6 L (12.9-16.9) g/dL Hct 27.2 L (37.5-50.1) % Plt Count 113 L (140-400) K/mcL Neutrophils # 5.1 (1.6-8.9) K/mcL BMP 03/06/18 00:57 Sodium 136 Potassium 3.9 Chloride 97 L Carbon Dioxide 27 BUN 40 H Creatinine 4.24 H Glucose 174 H Calcium 8.2 L Consult Discharge Plan - Plan Referrals: Analilia Montero, GRADER OPERATOR [Primary Care Provider] - (1) Sepsis Qualifiers: Sepsis type: sepsis due to unspecified organism Qualified Code(s): A41.9 - Sepsis, unspecified organism (3) Diabetes Qualifiers: Diabetes mellitus type: type 2 Diabetes mellitus bed bug exterminator insulin use: without chcf use Diabetes mellitus complication status: with kidney complications Diabetes mellitus complication detail: with chronic kidney disease Chronic kidney disease stage: on chronic dialysis Qualified Code(s): E11.22 - Type 2 diabetes mellitus with diabetic chronic kidney disease; N18.6 - End stage renal disease; Z99.2 - Dependence on renal dialysis (4) CAD (coronary artery disease) Qualifiers: Coronary Disease-Associated Artery/Lesion type: bypass graft [place] vs. transplanted heart: [place] heart Associated angina: without angina Qualified Code(s): I25.810 - Atherosclerosis of coronary artery bypass graft(s) without angina pectoris (9) Anemia Qualifiers: Anemia type: due to chronic kidney disease Chronic kidney disease stage: unspecified stage Qualified Code(s): N18.9 - Chronic kidney disease, unspecified; D63.1 - Anemia in chronic kidney disease (11) HLD (hyperlipidemia) Qualifiers: Hyperlipidemia type: pure hypercholesterolemia Qualified Code(s): E78.00 - Pure hypercholesterolemia, unspecified; E78.0 - Pure hypercholesterolemia (12) HTN (hypertension) Qualifiers: Hypertension type: essential hypertension Qualified Code(s): I10 - Essential (primary) hypertension (13) Liver cirrhosis Qualifiers: Hepatic cirrhosis type: alcoholic cirrhosis Ascites presence: with ascites Qualified Code(s): K70.31 - Alcoholic cirrhosis of liver with ascites
[2018-03-06] MEDS: MethylPREDNISolone 40 MG/ML VIAL IVP SCH (09:16)
[2018-03-06] MEDS: Gabapentin 300 MG CAPSULE PO SCH ×3 (09:16→20:28)
[2018-03-06] MEDS: Venlafaxine XR (24 HR) 150 MG CAP.ER.24H PO SCH (09:16)
[2018-03-06] MEDS: Piperacillin/Tazobactam 3.375 GM in 0.9 % Sodium Chloride Mini Bag 100 ML IVPB SCH ×2 (09:16→20:28)
--- NOTE | 2018-03-06 14:32 | Nephrology Progress Note ---
Date of Encounter: 03/05/18 Time of Encounter: 11:00 - Assessment and Plan (1) ESRD (end stage renal disease) on dialysis Current Visit: No Status: Chronic Continue HD with UF as tolerated Lytes stable Continue renal diet (2) Anemia Current Visit: Yes Status: Acute Hgb noted at 9.3, will monitor Qualifiers: Anemia type: due to chronic kidney disease Chronic kidney disease stage: unspecified stage Qualified Code(s): N18.9 - Chronic kidney disease, unspecified; D63.1 - Anemia in chronic kidney disease (3) Pneumonia Current Visit: Yes Status: Acute Continue abx per primary team Qualifiers: Pneumonia type: due to unspecified organism Laterality: left Lung location: lower lobe of lung Qualified Code(s): J18.1 - Lobar pneumonia, unspecified organism Subjective Interval history: Pt seen and examined on HD doing well. No new complaints. Objective - Vital Signs Vital signs: Vital Signs Temp Pulse Resp BP Pulse Ox 03/06/18 11:29 97.8 F 83 17 158/79 100 03/06/18 11:00 18 94 03/06/18 08:11 18 142/89 93 03/06/18 07:33 97.8 F 81 18 142/89 93 03/06/18 04:25 98.4 F 91 18 114/63 96 03/06/18 00:24 14 98 03/05/18 22:40 98.5 F 98 18 179/70 97 03/05/18 21:37 98 03/05/18 21:15 20 98 03/05/18 18:23 98.9 F 90 18 148/78 97 Intake and Output 03/05/18 03/06/18 03/06/18 23:59 07:59 15:59 Intake Total 0 / 0 200 / 200 Output Total 50 / 3650 Balance -50 / -3650 200 / 200 Intake: IV Fluids 200 / 200 Levaquin Premix 500mg/100mL 500 100 / 100 mg In 100 ml @ 100 mls/hr IVPB Q48H [facility] Rx#:[id number] Zosyn 3.375 GM In 0.9 % Sodium 100 / 100 Chloride (Mini-Bag +) 100 ML @ 25 mls/hr IVPB Q12H [facility] Rx#: [id number] Oral 0 / 0 0 / 0 Output: Catheter 50 / 50 Other: Meal Lunch Stool Size Large Stool Consistency formed # Bowel Movements 1 Weight 95.58 kg Blood Glucose* 252 80 91 Patient Weight 03/06/18 23:59 Weight 95.58 kg - General Appearance General appearance: Present: chronically ill (NAD) EENT: Present: ATNC, mucous membranes moist Neck: Present: no JVD, supple Additional Comments: good areation with occ. wheezes ant bilat Cardiology: Present: no edema, normal S1, normal S2 Dialysis Vascular Access: Venous Catheter (permcath) Gastrointestinal: Present: no tenderness, no guarding Integumentary: Present: warm and dry Neurologic: Present: no focal deficit Musculoskeletal: Present: no deformities Psychiatric: Present: mood/affect appropriate, cooperative - Lab 03/06/18 00:57 03/06/18 00:57 Most recent lab results Calcium 8.2 mg/dL (8.6-10.3) L 03/06/18 00:57 Magnesium 2.2 mg/dL (1.6-2.6) 03/06/18 00:57 Consult Discharge Plan - Plan Referrals: Analilia Montero, [employer] APPRENTICE [Primary Care Provider] -
--- NOTE | 2018-03-06 14:37 | Nephrology Progress Note ---
Date of Encounter: 03/06/18 Time of Encounter: 15:00 - Assessment and Plan (1) ESRD (end stage renal disease) on dialysis Current Visit: No Status: Chronic Lytes stable s/p HD yesterday, next planned for wednesday Continue renal diet (2) Anemia Current Visit: Yes Status: Acute Hgb noted at 8.6. Goal is hgb >10, will monitor Qualifiers: Anemia type: due to chronic kidney disease Chronic kidney disease stage: unspecified stage Qualified Code(s): N18.9 - Chronic kidney disease, unspecified; D63.1 - Anemia in chronic kidney disease (3) Pneumonia Current Visit: Yes Status: Acute Continue abx per primary team Qualifiers: Pneumonia type: due to unspecified organism Laterality: left Lung location: lower lobe of lung Qualified Code(s): J18.1 - Lobar pneumonia, unspecified organism Subjective Interval history: Pt seen and examined doing well. No new complaints. Objective - Vital Signs Vital signs: Vital Signs Temp Pulse Resp BP Pulse Ox 03/06/18 11:29 97.8 F 83 17 158/79 100 03/06/18 11:00 18 94 03/06/18 08:11 18 142/89 93 03/06/18 07:33 97.8 F 81 18 142/89 93 03/06/18 04:25 98.4 F 91 18 114/63 96 03/06/18 00:24 14 98 03/05/18 22:40 98.5 F 98 18 179/70 97 03/05/18 21:37 98 03/05/18 21:15 20 98 03/05/18 18:23 98.9 F 90 18 148/78 97 Intake and Output 03/05/18 03/06/18 03/06/18 23:59 07:59 15:59 Intake Total 0 / 0 200 / 200 Output Total 50 / 3650 Balance -50 / -3650 200 / 200 Intake: IV Fluids 200 / 200 Levaquin Premix 500mg/100mL 500 100 / 100 mg In 100 ml @ 100 mls/hr IVPB Q48H [facility] Rx#:[id number] Zosyn 3.375 GM In 0.9 % Sodium 100 / 100 Chloride (Mini-Bag +) 100 ML @ 25 mls/hr IVPB Q12H [facility] Rx#: [id number] Oral 0 / 0 0 / 0 Output: Catheter 50 / 50 Other: Meal Lunch Stool Size Large Stool Consistency formed # Bowel Movements 1 Weight 95.58 kg Blood Glucose* 252 80 91 Patient Weight 03/06/18 23:59 Weight 95.58 kg EENT: Present: ATNC, mucous membranes moist Neck: Present: no JVD, supple Additional Comments: good areation ant bilat Cardiology: Present: no edema, normal S1, normal S2 Dialysis Vascular Access: Venous Catheter (permcath) Gastrointestinal: Present: no tenderness, no guarding Integumentary: Present: warm and dry Neurologic: Present: no focal deficit Musculoskeletal: Present: no deformities Psychiatric: Present: mood/affect appropriate - Lab 03/07/18 00:46 03/07/18 00:46 Most recent lab results Calcium 8.2 mg/dL (8.6-10.3) L 03/06/18 00:57 Magnesium 2.2 mg/dL (1.6-2.6) 03/06/18 00:57 Consult Discharge Plan - Plan Referrals: Analilia Montero POWER SUPPLY ENGINEER [Primary Care Provider] -
[2018-03-06] MEDS: Melatonin 3 MG TABLET PO SCH (20:28)
[2018-03-06] MEDS: hydrOXYzine pamoate 25 MG CAPSULE PO PRN (20:51)
[2018-03-07 01:01] LABS: Hematocrit 29.4 % (37.5-50.1); Hemoglobin 9.2 g/dL (12.9-16.9); Immature Granulocytes % 0.4 % (0-4); Lymphocytes # 0.4 K/mcL (0.6-4.6); Lymphocytes % 4.8 %; Mean Corpuscular HGB Conc 31.3 g/dL (31.6-35.5); Mean Corpuscular Hemoglobin 27.7 pg (28.0-33.3); Mean Corpuscular Volume 88.6 fL (83.0-100.0); Mean Platelet Volume 9.5 fL (9.4-12.4); Monocytes # 0.6 K/mcL (0.0-1.3); Monocytes % 7.6 %; Neutrophils # 6.9 K/mcL (1.6-8.9); Platelet Count 116 K/mcL (140-400); Red Blood Count 3.32 M/mcL (4.19-5.50); Red Cell Distribution Width 17.3 % (11.5-14.5); Segmented Neutrophils % 87.2 %
[2018-03-07 01:06] LABS: INR 1.4; Prothrombin Time 15.6 Seconds (9.4-12.1)
[2018-03-07 01:21] LABS: Albumin 2.9 g/dL (3.5-5.7); Albumin/Globulin Ratio 0.7 (1.1-2.2); Bilirubin,Total 0.4 mg/dL (0.3-1.0); Calcium 8.4 mg/dL (8.6-10.3); Globulin 4.2 g/dL (2.4-3.5); Magnesium 2.4 mg/dL (1.6-2.6); Potassium 4.4 mEq/L (3.5-5.1); Total Protein 7.1 g/dL (6.4-8.9)
[2018-03-07] MEDS: Ipratropium/Albuterol Neb 3 ML IH SCH ×6 (04:28→23:51)
[2018-03-07] MEDS: Insulin LISPRO 300 UNITS/3 ML VIAL SQ SCH ×3 (07:22→21:24)
[2018-03-07] MEDS: Venlafaxine XR (24 HR) 150 MG CAP.ER.24H PO SCH (08:35)
[2018-03-07] MEDS: Gabapentin 300 MG CAPSULE PO SCH ×3 (08:36→21:18)
[2018-03-07] MEDS: MethylPREDNISolone 40 MG/ML VIAL IVP SCH (08:36)
--- NOTE | 2018-03-07 08:45 | Internal Med Progress Note ---
<Jacqueline Treviño - Last Filed: 03/07/18 16:10> Hospitalist Progress Note - Encounter Date of Encounter: 03/07/18 - Exam Vitals: Temp Pulse Resp BP Pulse Ox 98.6 F 94 16 158/84 96 03/07/18 14:51 03/07/18 14:51 03/07/18 15:29 03/07/18 14:51 03/07/18 15:29 - Assessment and Plan (1) Sepsis Current Visit: Yes Status: Resolved (2) Multifocal pneumonia Current Visit: Yes Status: Acute (3) Diabetes Current Visit: Yes Status: Chronic (4) CAD (coronary artery disease) Current Visit: Yes Status: Chronic (5) Elevated troponin Current Visit: Yes Status: Acute (6) Thrombocytopenia Current Visit: No Status: Chronic (7) ESRD (end stage renal disease) on dialysis Current Visit: No Status: Chronic (8) DVT prophylaxis Current Visit: No Status: Acute (9) Anemia Current Visit: Yes Status: Acute (10) Diastolic CHF, chronic Current Visit: Yes Status: Chronic (11) HLD (hyperlipidemia) Current Visit: Yes Status: Chronic (12) HTN (hypertension) Current Visit: Yes Status: Chronic (13) Liver cirrhosis Current Visit: Yes Status: Chronic (14) Anxiety Current Visit: Yes Status: Chronic - Time Spent with Patient Total time spent is greater than 50% in coordination of care (as documented) at patient's floor/unit and/or counseling patient: Internal Medicine: Result - Labs CBC & Chem 7: 03/07/18 00:46 03/07/18 00:46 Labs: Short CBC 03/07/18 Range/Units 00:46 WBC 7.9 (4.3-11.1) K/mcL Hgb 9.2 L (12.9-16.9) g/dL Hct 29.4 L (37.5-50.1) % Plt Count 116 L (140-400) K/mcL Neutrophils # 6.9 (1.6-8.9) K/mcL BMP 03/07/18 00:46 Sodium 136 Potassium 4.4 Chloride 96 L Carbon Dioxide 28 BUN 63 H Creatinine 5.56 H Glucose 97 Calcium 8.4 L Liver Function 03/07/18 Range/Units 00:46 Total Bilirubin 0.4 (0.3-1.0) mg/dL AST 14 (13-39) Units/L ALT 13 (7-52) Units/L Alkaline Phosphatase 95 (34-104) Units/L Albumin 2.9 L (3.5-5.7) g/dL - ABG Interpretation ABG results: PT/INR, D-dimer PT 15.6 Seconds (9.4-12.1) H 03/07/18 00:46 - Impressions Impressions Thoracentesis 03/07/18 09:46 IMPRESSION: Successful ultrasound guided thoracentesis. D/ / Shaan Lopez MD / Shaan Lopez MD Interpreting Provider: Shaan Lopez MD Chest X-Ray 03/07/18 11:38 IMPRESSION: 1. Markedly improved infiltrate in the left mid lung field since the previous study on 03/04/2018. 2. No evidence of a pneumothorax following thoracentesis. 3. Low lung volumes. D/ / 03/07/2018 12:27:45 Glenn Brennan MD / Jo Montez Interpreting Provider: Glenn Brennan MD Consult Discharge Plan - Plan Referrals: Analilia Montero, [employer] [Primary Care Provider] - - Attending Attestation I examined this patient and my medical decision-making was reviewed with the Resident Physician Dr Warren I agree with the documented findings, disposition and treatment plan as described except to the extent set forth below. Pt admitted with multifocal pna with loulated effusion and possible UTI with chronic [place] cath. He has esrd on HD and still makes some urine. Awake, cont coughing, not able ot clear sputum, denies wheezing or orthopnea. Having coughng fits, poor sleep. no sob at rest on o2 nc, + fatigue gen- alert, awake,appears stated age cv- reg rate and rhythm, normal s1,s2, no murmurs appreciated lungs- normal resp effort, diminsihed throughout, no wheezing, + crackles bl bases abd- soft, non tender, non distended, + bs neuro- AAOx3, Likely secondary to multifocal PNA found on CT chest On presentation met sepsis criteria; febrile at 101.1, tachycardic at 103, RR 21 , with a lactate of 2.2. Sepsis resolved -Cont. Zosyn and Levaquin -Vanc stopped with negative MRSA swab shortly after admit -sputum cx prelim few gpc and mod gnr -bl cxs ngtd -ua no nitrtites, mod LE, many sqaum, tntc wbc, no cx indicated on reflex multifocal pna- cont zosyn + levaquin, mrsa swab neg,, mucinex, nebs, iv steroids, fu sputum cx results, legionella and strep neg, home o2 eval prior ot dc UA with suspected UTI but squamous cells so not reflexed to culture- cx pending, difficulty obtaining urine given only makes very little with esrd Trop elevation, mild, stable and 2/2 most likely to ESRD, perhaps mild demand ischemia with sepsis presentation, he is asx, ekg without acute ischemic changes and no changes from prior esrd- with nephro following Acute on Chronic likely 2/2 anemia of chronic disease, rule out bleeding elsehwere, none noted onexam or in pt report of symptoms Hgb at baseline at admit, stable -first ua with trace blood,fobt neg <Yvrose Warren - Last Filed: 03/07/18 20:03> Hospitalist Progress Note - Encounter Date of Encounter: 03/07/18 Time of Encounter: 02:43 - Subjective Interval History: Ike Esquivel is a 77-year-old male with a history of CAD, hypertension, ESRD on dialysis (TThS), who presented with nonproductive cough for the past month. He was recently seen and treated by his PCP on 02/28 where he was given a Medrol Dosepak, Pro Air, and a 5 day course of azithromycin as well as a steroid injection in the office. He reports that he continued to worsen during treatment and was coughing so bad that he was SOB. Patient also reports subjective fever and chills prior to presentation. He denies any nausea, vomiting, diarrhea, dysuria, hematuria, hemoptysis, or weight loss. He has had 2 other hospitalizations in the past 3 months. On presentation he met sepsis criteria; febrile at 101.1, tachycardic at 13, RR 21, with a lactate of 2.2. He was started on Vanc, Zosyn, and Levaquin. He was found to have multifocal PNA on chest CT. He was lying comfortably in bed this afternoon. He was seen s/p thoracentesis and states that he feels his breathing and SOB is somewhat improved. He continues to complain of a cough, now minimally productive with yellow sputum. He states that he can't sleep well due to his cough. He also states that he got a little unsteady while getting up to go to the restroom and states that he had to sit down to prevent from falloing. Otherwise, he denies fever, chills, N/V/D , lighheadedness, dizziness, chest pain, or palpitations. - Exam Vitals: Temp Pulse Resp BP Pulse Ox 98.3 F 92 16 162/80 100 03/07/18 06:28 03/07/18 06:28 03/07/18 07:25 03/07/18 06:28 03/07/18 07:25 Exam: General: awake, alert, appears stated age HEENT:EOM intact, atraumatic, normocephalic Cardiovascular: RRR, normal S1 & S2, no murmurs, no jvd, no lower extremity edema Lungs: CTAB, no wheezing, crackles noted b/l bases Abdomen: Soft, non-tender, non-distended, no rigidity, + bowel sounds Neurological: AAOx3 : chronic [place] cath - Assessment and Plan (1) Multifocal pneumonia Current Visit: Yes Status: Acute Assessment and Plan: Likely secondary to multifocal PNA found on CT chest On presentation met sepsis criteria; febrile at 101.1, tachycardic at 103, RR 21 , with a lactate of 2.2. Sepsis resolved influenza neg, legionella and strep remain pending collection sputum + haemophilus influenzae bl cxs ngtd ua no nitrtites, mod LE, many sqaum, tntc wbc, no cx indicated on reflex CT Chest 03/04/18: 1.ground-glass and nodular opacities in a bronchovascular distribution within the left upper lobe. More focal consolidation is seen posteriorly. Findings are most suggestive of infection. Recommend treating the patient and following to resolution. 2. Loculated left pleural effusion with adjacent round atelectasis. 3. Airspace opacities in the right lower lobe which may represent infection or aspiration. Cont. Zosyn and Levaquin (day 4) Vanc stopped with negative MRSA swab shortly after admit S/p thoracentesis per IR today, fluid analysis pending Changed to humidified supplemental O2 d/t complaint of dryness (2) Sepsis Current Visit: Yes Status: Resolved Assessment and Plan: Resolved. Likely secondary to multifocal PNA See above (3) Diabetes Current Visit: Yes Status: Chronic Assessment and Plan: Chronic T2DM. Unconfirmed oral meds at home. Continue low dose SSI Will continue to monitor, bs at goal (4) Diastolic CHF, chronic Current Visit: Yes Status: Chronic Assessment and Plan: Chronic, not in decompensation ECHO 08/15 - EF 55%, mild LVH, Mild diastolic dysfunction, mild pulm htn Continue to hold BB due to hypotension and sepsis on admit, resp status (5) HTN (hypertension) Current Visit: Yes Status: Chronic Assessment and Plan: Initially hypertensive in the 170s systolic on presentation Currently running up to 150s sbp Continue to hold antihypertensives for now. Will monitor closely. (6) CKD (chronic kidney disease) stage 4, GFR 15-29 ml/min Current Visit: Yes Status: Chronic Assessment and Plan: ESRD on dialysis T,Th,S Cr 5.56 today, increased from baseline on admit Nephro following to continue regular dialysis schedule (7) Elevated troponin Current Visit: Yes Status: Acute Assessment and Plan: Mildly elevated on presentation at 0.07, likely secondary to mild demand ischemia + ESRD, less likely cardiac cause Repeat trops 0.09 --> 0.08 (8) Liver cirrhosis Current Visit: Yes Status: Chronic Assessment and Plan: Chronic, unknown etiology CT chest 03/04 - Cirrhosis with abdominal ascites Hep panel negative in 01/15 Patient denies current or previous excessive alcohol use, and confirmed by family Recommend outpatient follow-up for further workup (9) HLD (hyperlipidemia) Current Visit: Yes Status: Chronic Assessment and Plan: continue statin (10) CAD (coronary artery disease) Current Visit: Yes Status: Chronic Assessment and Plan: Recent CABG in may 2017 Chest pain reported but more likely MSK etiology d/t coughing excessively Troponin elevation adynamic and more likely d/t mild demand ischemia and ESRD, less likely cardiac in origin Not on aspirin at home, cont Plavix, and statin Holding BB due to sepsis and hypotension Will continue to monitor closely (11) Anemia Current Visit: Yes Status: Acute Assessment and Plan: Acute on Chronic likely 2/2 anemia of chronic disease, no signs of active bleeding Hgb at baseline at admit Will monitor closely, arash with low platelets fobt negative (12) Anxiety Current Visit: Yes Status: Chronic Assessment and Plan: cont home vistaril add buspar melatonin hs - Time Spent with Patient Total time spent is greater than 50% in coordination of care (as documented) at patient's floor/unit and/or counseling patient: Internal Medicine: Result - Labs CBC & Chem 7: 03/07/18 00:46 03/07/18 00:46 Labs: Short CBC 03/07/18 Range/Units 00:46 WBC 7.9 (4.3-11.1) K/mcL Hgb 9.2 L (12.9-16.9) g/dL Hct 29.4 L (37.5-50.1) % Plt Count 116 L (140-400) K/mcL Neutrophils # 6.9 (1.6-8.9) K/mcL BMP 03/07/18 00:46 Sodium 136 Potassium 4.4 Chloride 96 L Carbon Dioxide 28 BUN 63 H Creatinine 5.56 H Glucose 97 Calcium 8.4 L Liver Function 03/07/18 Range/Units 00:46 Total Bilirubin 0.4 (0.3-1.0) mg/dL AST 14 (13-39) Units/L ALT 13 (7-52) Units/L Alkaline Phosphatase 95 (34-104) Units/L Albumin 2.9 L (3.5-5.7) g/dL - ABG Interpretation ABG results: PT/INR, D-dimer PT 15.6 Seconds (9.4-12.1) H 03/07/18 00:46 <Drabina-Sony,Jacqueline M - Last Filed: 03/07/18 16:10> (1) Sepsis Qualifiers: Sepsis type: sepsis due to unspecified organism Qualified Code(s): A41.9 - Sepsis, unspecified organism (3) Diabetes Qualifiers: Diabetes mellitus type: type 2 Diabetes mellitus senior living insulin use: without long term care administrator use Diabetes mellitus complication status: with kidney complications Diabetes mellitus complication detail: with chronic kidney disease Chronic kidney disease stage: on chronic dialysis Qualified Code(s): E11.22 - Type 2 diabetes mellitus with diabetic chronic kidney disease; N18.6 - End stage renal disease; Z99.2 - Dependence on renal dialysis (4) CAD (coronary artery disease) Qualifiers: Coronary Disease-Associated Artery/Lesion type: bypass graft [place] vs. transplanted heart: [place] heart Associated angina: without angina Qualified Code(s): I25.810 - Atherosclerosis of coronary artery bypass graft(s) without angina pectoris (9) Anemia Qualifiers: Anemia type: due to chronic kidney disease Chronic kidney disease stage: unspecified stage Qualified Code(s): N18.9 - Chronic kidney disease, unspecified; D63.1 - Anemia in chronic kidney disease (11) HLD (hyperlipidemia) Qualifiers: Hyperlipidemia type: pure hypercholesterolemia Qualified Code(s): E78.00 - Pure hypercholesterolemia, unspecified; E78.0 - Pure hypercholesterolemia (12) HTN (hypertension) Qualifiers: Hypertension type: essential hypertension Qualified Code(s): I10 - Essential (primary) hypertension (13) Liver cirrhosis Qualifiers: Hepatic cirrhosis type: alcoholic cirrhosis Ascites presence: with ascites Qualified Code(s): K70.31 - Alcoholic cirrhosis of liver with ascites <Yvrose Warren - Last Filed: 03/07/18 20:03> (2) Sepsis Qualifiers: Sepsis type: sepsis due to unspecified organism Qualified Code(s): A41.9 - Sepsis, unspecified organism (3) Diabetes Qualifiers: Diabetes mellitus type: type 2 Diabetes mellitus long term care administrator insulin use: without long term care administrator use Diabetes mellitus complication status: with kidney complications Diabetes mellitus complication detail: with chronic kidney disease Chronic kidney disease stage: on chronic dialysis Qualified Code(s): E11.22 - Type 2 diabetes mellitus with diabetic chronic kidney disease; N18.6 - End stage renal disease; Z99.2 - Dependence on renal dialysis (5) HTN (hypertension) Qualifiers: Hypertension type: essential hypertension Qualified Code(s): I10 - Essential (primary) hypertension (8) Liver cirrhosis Qualifiers: Hepatic cirrhosis type: alcoholic cirrhosis Ascites presence: with ascites Qualified Code(s): K70.31 - Alcoholic cirrhosis of liver with ascites (9) HLD (hyperlipidemia) Qualifiers: Hyperlipidemia type: pure hypercholesterolemia Qualified Code(s): E78.00 - Pure hypercholesterolemia, unspecified; E78.0 - Pure hypercholesterolemia (10) CAD (coronary artery disease) Qualifiers: Coronary Disease-Associated Artery/Lesion type: bypass graft [place] vs. transplanted heart: [place] heart Associated angina: without angina Qualified Code(s): I25.810 - Atherosclerosis of coronary artery bypass graft(s) without angina pectoris (11) Anemia Qualifiers: Anemia type: due to chronic kidney disease Chronic kidney disease stage: unspecified stage Qualified Code(s): N18.9 - Chronic kidney disease, unspecified; D63.1 - Anemia in chronic kidney disease
[2018-03-07] MEDS: Piperacillin/Tazobactam 3.375 GM in 0.9 % Sodium Chloride Mini Bag 100 ML IVPB SCH ×2 (10:16→21:16)
--- NOTE | 2018-03-07 11:40 | IR Procedure Note ---
Date of procedure: 03/07/18 Consent Obtained: Verbal consent, Written consent Timeout: Correct patient and procedure verified, Correct site verified, Time out performed, Skin prep completed Local anesthetic: Lidocaine 1% Indications: Left pleural effusion Procedure Performed: Left thoracentesis Was there an railways assistant present: No Site/Technique: Ultrasound guided left pleural effusion performed Results/Findings: Small pleural effusion Estimated blood loss (cc): 2 Complications: None; Tolerated procedure well Post Procedure Treatment Plan: CXR pending Specimen: Serous pleural fluid
--- NOTE | 2018-03-07 13:12 | Nephrology Progress Note ---
<Korin Whitmore - Last Filed: 03/07/18 13:10> Date of Encounter: 03/07/18 Time of Encounter: 13:10 - Assessment and Plan (1) Anemia Current Visit: Yes Status: Acute Hgb stable. Goal Hgb 10-11. Qualifiers: Anemia type: due to chronic kidney disease Chronic kidney disease stage: unspecified stage Qualified Code(s): N18.9 - Chronic kidney disease, unspecified; D63.1 - Anemia in chronic kidney disease (2) ESRD (end stage renal disease) on dialysis Current Visit: No Status: Chronic Lytes stable HD planned for Wednesday. Continue renal diet (3) Pneumonia Current Visit: Yes Status: Acute Continue abx per primary team. Qualifiers: Pneumonia type: due to unspecified organism Laterality: left Lung location: lower lobe of lung Qualified Code(s): J18.1 - Lobar pneumonia, unspecified organism Subjective Principal diagnosis: SOB/fever Interval history: Pt seen and examined, doing better. SOB improved. Denies CP. Objective - Vital Signs Vital signs: Vital Signs Temp Pulse Resp BP Pulse Ox 03/07/18 13:01 95 03/07/18 11:16 98.0 F 91 18 152/83 92 03/07/18 07:25 16 100 03/07/18 06:28 98.3 F 92 18 162/80 99 03/07/18 05:05 98.6 F 92 18 133/74 99 03/07/18 04:29 18 100 03/06/18 23:13 18 98 03/06/18 23:10 98.6 F 97 20 147/80 99 03/06/18 20:32 18 96 03/06/18 18:51 98.8 F 97 22 132/75 96 03/06/18 16:47 20 97 03/06/18 16:15 98.9 F 81 20 147/74 97 Intake and Output 03/06/18 03/07/18 03/07/18 23:59 07:59 15:59 Intake Total 240 / 240 100 / 100 440 / 440 Output Total 5 / 5 0 / 0 Balance 235 / 235 100 / 100 440 / 440 Intake: IV Fluids 100 / 100 Zosyn 3.375 GM In 0.9 % Sodium 100 / 100 Chloride (Mini-Bag +) 100 ML @ 25 mls/hr IVPB Q12H [place] Rx#: [id number] Oral 240 / 240 0 / 0 440 / 440 Output: Catheter 5 / 5 0 / 0 Urethral ([place]) 5 / 5 Other: Meal Dinner Lunch Percent of Meal Consumed 75% # Bowel Movements 1 Weight 95.3 kg Blood Glucose* 254 85 108 Patient Weight 03/07/18 23:59 Weight 95.3 kg - General Appearance General appearance: Present: well-developed, well-nourished EENT: Present: hearing intact, vision intact Neck: Present: supple Respiratory: Present: clear Cardiology: Present: no edema, normal S1, normal S2 Dialysis Vascular Access: Venous Catheter (Tunneled line, DRSG C/D/I) Gastrointestinal: Present: normoactive bowel sounds, no tenderness, no guarding Integumentary: Present: no rash, warm and dry Neurologic: Present: alert and oriented x3 Psychiatric: Present: mood/affect appropriate, cooperative - Lab 03/07/18 00:46 03/07/18 00:46 Most recent lab results Calcium 8.4 mg/dL (8.6-10.3) L 03/07/18 00:46 Magnesium 2.4 mg/dL (1.6-2.6) 03/07/18 00:46 Consult Discharge Plan - Plan Referrals: Analilia Montero CNP [Primary Care Provider] - <Nigel Donis - Last Filed: 03/07/18 20:53> Date of Encounter: 03/07/18 - Assessment and Plan (1) ESRD (end stage renal disease) on dialysis Current Visit: No Status: Chronic Supervisory for CALENDER TENDER note: pt was s/e and interviewed/examined by me. I reviewed the hand-off notes from my colleague Dr. Rios, the pt's [facility] notes ( he just started HD in Jan and Dr. Eaton is listed as his primary director of primary care) , his meds, vitals, prior imaging and progress notes. ESRD TTS: Next HD is planned for tomorrow. Anemia, likely multifactorial: goal Hgb is 10-11, will monitor and assess for EPO and/or SYLVIA HTN: will monitor, continue home Rx. Dyspnea: will challenge is dry weight with HD tomorrow (but not surpass 13mL/kg/ hr of UF). Continue to follow a renal protective strategy with strict I/Os, daily weights, protection of his residual renal function. Thank you. (2) Anemia Current Visit: Yes Status: Acute Qualifiers: Anemia type: due to chronic kidney disease Chronic kidney disease stage: unspecified stage Qualified Code(s): N18.9 - Chronic kidney disease, unspecified; D63.1 - Anemia in chronic kidney disease (3) Pneumonia Current Visit: Yes Status: Acute Qualifiers: Pneumonia type: due to unspecified organism Laterality: left Lung location: lower lobe of lung Qualified Code(s): J18.1 - Lobar pneumonia, unspecified organism Objective - Vital Signs Vital signs: Vital Signs Temp Pulse Resp BP Pulse Ox 03/07/18 19:47 20 98 03/07/18 19:30 98.5 F 91 26 185/96 96 03/07/18 15:29 16 96 03/07/18 14:51 98.6 F 94 18 158/84 96 03/07/18 13:01 95 03/07/18 11:16 98.0 F 91 18 152/83 92 03/07/18 07:25 16 100 03/07/18 06:28 98.3 F 92 18 162/80 99 03/07/18 05:05 98.6 F 92 18 133/74 99 03/07/18 04:29 18 100 03/06/18 23:13 18 98 03/06/18 23:10 98.6 F 97 20 147/80 99 Intake and Output 03/07/18 03/07/18 03/07/18 07:59 15:59 23:59 Intake Total 100 / 100 440 / 440 240 / 240 Output Total 0 / 0 0 / 0 Balance 100 / 100 440 / 440 240 / 240 Intake: IV Fluids 100 / 100 Zosyn 3.375 GM In 0.9 % Sodium 100 / 100 Chloride (Mini-Bag +) 100 ML @ 25 mls/hr IVPB Q12H [place] Rx#: [id number] Oral 0 / 0 440 / 440 240 / 240 Output: Catheter 0 / 0 0 / 0 Other: Meal Lunch Percent of Meal Consumed 75% Stool Size Moderate Stool Consistency soft Stool Color Brown # Bowel Movements 1 Weight 95.3 kg Blood Glucose* 85 108 315 Patient Weight 03/07/18 23:59 Weight 95.3 kg - Lab 03/07/18 00:46 03/07/18 00:46 Most recent lab results Calcium 8.4 mg/dL (8.6-10.3) L 03/07/18 00:46 Magnesium 2.4 mg/dL (1.6-2.6) 03/07/18 00:46
[2018-03-07 13:44] LABS: Glucose,Pleural Fluid 76 mg/dL (No Ref Range); LDH,Pleural Fluid 108 Units/L (No Ref Range); RBC,Pleural Fluid 0.006 M/mcL; Total Protein,Pleural Fluid < 3.0 g/dL (No Ref Range)
[2018-03-07 14:55] LABS: Appearance of Pleural Fl Cloudy (Clear)
--- NOTE | 2018-03-07 16:07 | Electrocardiograph Report ---
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
--- NOTE | 2018-03-07 16:31 | Electrocardiograph Report ---
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
[2018-03-07] MEDS ORDERED: Piperacillin/Tazobactam 3.375 GM VIAL ONE (20:45)
[2018-03-07] MEDS: Melatonin 3 MG TABLET PO SCH (21:18)
[2018-03-07] MEDS: hydrOXYzine pamoate 25 MG CAPSULE PO PRN (21:18)
[2018-03-08 01:52] LABS: Eosinophils % 0.1 %; Hematocrit 31.3 % (37.5-50.1); Hemoglobin 9.7 g/dL (12.9-16.9); Immature Granulocytes % 0.5 % (0-4); Lymphocytes # 0.8 K/mcL (0.6-4.6); Lymphocytes % 9.3 %; Mean Corpuscular Hemoglobin 27.5 pg (28.0-33.3); Mean Corpuscular Volume 88.7 fL (83.0-100.0); Mean Platelet Volume 9.8 fL (9.4-12.4); Monocytes # 0.7 K/mcL (0.0-1.3); Monocytes % 9.1 %; Neutrophils # 6.6 K/mcL (1.6-8.9); Platelet Count 122 K/mcL (140-400); Red Blood Count 3.53 M/mcL (4.19-5.50); Red Cell Distribution Width 17.2 % (11.5-14.5)
[2018-03-08 02:13] LABS: Calcium 8.4 mg/dL (8.6-10.3); Potassium 4.8 mEq/L (3.5-5.1)
[2018-03-08] MEDS: Ipratropium/Albuterol Neb 3 ML IH SCH ×6 (04:04→23:49)
[2018-03-08 05:21] LABS: Bilirubin,Urine Negative (Negative); Blood,Urine Small (Negative); Color,Urine Yellow (Yellow); Glucose,Urine (UA) 500 mg/dL (Normal); Ketones,Urine Negative (Negative); Leukocyte Esterase,Urine Small (Negative); Nitrite,Urine Negative (Negative); PH,Urine 7.5 pH Units (5.0-8.0); Protein,Urine >=1000 mg/dL (Neg-Trace); Specific Gravity,Urine 1.015 (1.010-1.025); Urobilinogen,Urine Normal (Normal)
[2018-03-08] MEDS: Levofloxacin 500 MG/100 ML 500 MG/100 ML BAG IVPB SCH (05:22)
[2018-03-08 05:23] LABS: Bacteria,Urine None Seen per hpf (None-Few); Hyaline Casts,Urine Moderate per lpf (None-Few); RBC,Urine 0-3 per hpf (0-3); Squamous Epithelial Cell,Urine Few per lpf (None-Few); WBC,Urine 30-50 per hpf (0-3)
[2018-03-08 05:25] LABS: Clarity,Urine Slightly Hazy (Clear)
[2018-03-08 05:49] LABS: Fluid Source for Cholesterol PLEURAL FLUID; Fluid Source for Triglycerides PLEURAL FLUID
[2018-03-08] MEDS ORDERED: 0.9 % Sodium Chloride 250 ML IVC PRN (07:01)
[2018-03-08] MEDS: Insulin LISPRO 300 UNITS/3 ML VIAL SQ SCH ×5 (07:08→21:17)
[2018-03-08 08:12] LABS: Cholesterol,Body Fluid 14 mg/dL; Triglycerides,Body Fluid 13 mg/dL
--- NOTE | 2018-03-08 10:00 | Nephrology Progress Note ---
Date of Encounter: 03/08/18 Time of Encounter: 09:57 - Assessment and Plan (1) ESRD (end stage renal disease) on dialysis Current Visit: No Status: Chronic Current regimen is TTS at [facility]. HD in progress for today. (2) Anemia Current Visit: Yes Status: Acute Goal Hgb 10-11. Hgb is 9.7 today. Qualifiers: Anemia type: due to chronic kidney disease Chronic kidney disease stage: unspecified stage Qualified Code(s): N18.9 - Chronic kidney disease, unspecified; D63.1 - Anemia in chronic kidney disease (3) Pneumonia Current Visit: Yes Status: Acute Continue abx per primary team. Qualifiers: Pneumonia type: due to unspecified organism Laterality: left Lung location: lower lobe of lung Qualified Code(s): J18.1 - Lobar pneumonia, unspecified organism (4) Dyspnea Current Visit: Yes Status: Acute s/p left thoracentesis 03/05/18. Admits he is feeling better after procedure. Qualifiers: Qualified Code(s): R06.00 - Dyspnea, unspecified Subjective Principal diagnosis: SOB/fever Interval history: Pt seen and examined, doing better. SOB improved. Denies CP. Objective - Vital Signs Vital signs: Vital Signs Temp Pulse Resp BP Pulse Ox 03/08/18 07:47 17 88 03/08/18 06:41 98.5 F 78 22 173/78 93 03/08/18 04:39 98.3 F 75 20 183/81 93 03/08/18 04:04 18 91 03/08/18 00:20 98.6 F 73 22 168/80 93 03/07/18 23:51 19 88 03/07/18 19:47 20 98 03/07/18 19:30 98.5 F 91 26 185/96 96 03/07/18 15:29 16 96 03/07/18 14:51 98.6 F 94 18 158/84 96 03/07/18 13:01 95 03/07/18 11:16 98.0 F 91 18 152/83 92 Intake and Output 03/07/18 03/08/18 03/08/18 23:59 07:59 15:59 Intake Total 240 / 240 0 / 0 Output Total 0 / 0 75 / 75 Balance 240 / 240 -75 / -75 Intake: Oral 240 / 240 0 / 0 Output: Catheter 0 / 0 75 / 75 Other: Stool Size Moderate Small Stool Consistency soft liquid Stool Color Brown Brown # Bowel Movements 1 Weight 95.78 kg Blood Glucose* 315 70 Patient Weight 03/08/18 23:59 Weight 95.78 kg - General Appearance General appearance: Present: well-developed, well-nourished EENT: Present: ATNC, hearing intact, vision intact Neck: Present: supple Respiratory: Present: clear Cardiology: Present: no edema, normal S1, normal S2 Dialysis Vascular Access: Venous Catheter (Tunneled Line, DRSG C/D/I.) Gastrointestinal: Present: normoactive bowel sounds, no tenderness, no guarding Integumentary: Present: no rash, warm and dry Neurologic: Present: alert and oriented x3 Psychiatric: Present: mood/affect appropriate, cooperative - Lab 03/08/18 01:11 03/08/18 01:11 Most recent lab results Calcium 8.4 mg/dL (8.6-10.3) L 03/08/18 01:11 Magnesium 2.4 mg/dL (1.6-2.6) 03/07/18 00:46 Consult Discharge Plan - Plan Referrals: Analilia Montero, SIGN LETTERER [Primary Care Provider] -
[2018-03-08 12:31] LABS: Fluid Source for Albumin PLEURAL
[2018-03-08] MEDS: Piperacillin/Tazobactam 3.375 GM in 0.9 % Sodium Chloride Mini Bag 100 ML IVPB SCH (14:34)
[2018-03-08] MEDS: Metoprolol XL (24 HR) Succ 50 MG TAB.ER.24H PO SCH (14:38)
[2018-03-08] MEDS: Venlafaxine XR (24 HR) 150 MG CAP.ER.24H PO SCH (14:38)
[2018-03-08] MEDS: Gabapentin 300 MG CAPSULE PO SCH ×3 (14:38→21:17)
[2018-03-08] MEDS: MethylPREDNISolone 40 MG/ML VIAL IVP SCH (14:38)
--- NOTE | 2018-03-08 17:52 | Internal Med Progress Note ---
<Yvrose Warren - Last Filed: 03/08/18 18:29> Hospitalist Progress Note - Encounter Date of Encounter: 03/08/18 Time of Encounter: 17:25 - Subjective Interval History: Ike Esquivel is a 77-year-old male with a history of CAD, hypertension, ESRD on dialysis ([facility]), who presented with nonproductive cough for the past month. He was recently seen and treated by his PCP on 02/28 where he was given a Medrol Dosepak, Pro Air, and a 5 day course of azithromycin as well as a steroid injection in the office. He reports that he continued to worsen during treatment and was coughing so bad that he was SOB. Patient also reports subjective fever and chills prior to presentation. He denies any nausea, vomiting, diarrhea, dysuria, hematuria, hemoptysis, or weight loss. He has had 2 other hospitalizations in the past 3 months. On presentation he met sepsis criteria; febrile at 101.1, tachycardic at 13, RR 21, with a lactate of 2.2. He was started on Vanc, Zosyn, and Levaquin. He was found to have multifocal PNA on chest CT. He was lying comfortably in bed this afternoon. He was seen after dialysis and feels that he is continuing to improve. He continues to complain of a cough, now productive with yellow sputum. He denies fever, chills, N/V/D, lighheadedness, dizziness, chest pain, or palpitations. - Exam Vitals: Temp Pulse Resp BP Pulse Ox 98.5 F 89 16 164/93 95 03/08/18 14:51 03/08/18 14:51 03/08/18 14:51 03/08/18 14:51 03/08/18 14:51 Exam: General: lyning comfortably in bed, NAD HEENT:EOMI, atraumatic, normocephalic Cardiovascular: RRR, normal S1 & S2, no murmurs, no jvd, no lower extremity edema Lungs: CTAB, no wheezing, crackles noted b/l bases Abdomen: Soft, non-tender Neurological: AAOx3 : chronic [place] cath, light yellow urine output - Assessment and Plan (1) Multifocal pneumonia Current Visit: Yes Status: Acute Assessment and Plan: Non-productive cough x 1 month, without improvement on outpatient abx. Multifocal PNA found on CT chest. Subjectively improving, cough now productive with yellow sputum Met sepsis criteria on presentation; febrile at 101.1, tachycardic at 103, RR 21 , with a lactate of 2.2. Sepsis now resolved WBC 9.7 on admit, 8.2 now Influenza neg, legionella and strep negative Sputum + haemophilus influenzae Blood cxs NGTD UA - no nitrtites, mod LE, many sqaum, tntc wbc, no cx indicated on reflex CT chest 03/04 - Nodular opacities in bronchovascular distribution in ALDO, loculated left pleural effusion, airspace opacities in RLL Pleural fluid analysis - transudative Cont. Zosyn and Levaquin (day 5) Vanc stopped with negative MRSA swab shortly after admit Switched to Robitussin with Codeine for cough Increased Mucinex to 1200 mg Continue humidified supplemental O2 (2) Pleural effusion Current Visit: Yes Status: Acute Assessment and Plan: Loculated pleural effusion on chest CT CT chest 03/04 - Nodular opacities in bronchovascular distribution in ALDO, loculated left pleural effusion, airspace opacities in RLL s/p thoracentesis 03/07 - transudative See above (3) Sepsis Current Visit: Yes Status: Resolved Assessment and Plan: Resolved. Likely secondary to multifocal PNA See above (4) Diabetes Current Visit: Yes Status: Chronic Assessment and Plan: Chronic T2DM. A1C 6.2 Continue low dose SSI Will continue to monitor, bs at goal (5) Diastolic CHF, chronic Current Visit: Yes Status: Chronic Assessment and Plan: Chronic, not decompensated ECHO 08/15 - EF 55%, mild LVH, mild diastolic dysfunction, mild pulm htn Continue BB (6) HTN (hypertension) Current Visit: Yes Status: Chronic Assessment and Plan: Initially hypertensive in the 170s systolic on presentation Currently running 150-160s systolic Resumed home losartan and metoprolol Will continue to monitor (7) CKD (chronic kidney disease) stage 4, GFR 15-29 ml/min Current Visit: Yes Status: Chronic Assessment and Plan: ESRD on dialysis T,Th,S Cr 7.01 today, getting dialysis today Nephro following (8) Elevated troponin Current Visit: Yes Status: Acute Assessment and Plan: Mildly elevated on presentation at 0.07, likely secondary to mild demand ischemia + ESRD, less likely cardiac cause Repeat trops 0.09 --> 0.08 (9) Liver cirrhosis Current Visit: Yes Status: Chronic Assessment and Plan: Chronic, unknown etiology CT chest 03/04 - Cirrhosis with abdominal ascites Hep panel negative in 01/15 Patient denies current or previous excessive alcohol use, and confirmed by family Recommend outpatient follow-up for further workup (10) HLD (hyperlipidemia) Current Visit: Yes Status: Chronic Assessment and Plan: Continue statin (11) CAD (coronary artery disease) Current Visit: Yes Status: Chronic Assessment and Plan: Recent CABG in may 2017 Chest pain reported but more likely MSK etiology d/t coughing excessively Troponin elevation adynamic and more likely d/t mild demand ischemia and ESRD, less likely cardiac in origin Not on aspirin at home, cont Plavix, and statin Continue BB (12) Anemia Current Visit: Yes Status: Acute Assessment and Plan: Acute on Chronic likely 2/2 anemia of chronic disease, no signs of active bleeding Hgb 10 (bl), 9.7 today Will monitor closely, arash with low platelets FOBT negative (13) Anxiety Current Visit: Yes Status: Chronic Assessment and Plan: Continue home vistaril Continue buspar Continue Melatonin (14) Diarrhea Current Visit: No Status: Acute Assessment and Plan: Patient complaining of 3 small watery BMs today with increase flatulence Started imodium Will continue to monitor If >5 BMs will consider stool studies with C. Diff - Time Spent with Patient Total time spent is greater than 50% in coordination of care (as documented) at patient's floor/unit and/or counseling patient: Internal Medicine: Result - Labs CBC & Chem 7: 03/08/18 01:11 03/08/18 01:11 Labs: Short CBC 03/08/18 Range/Units 01:11 WBC 8.2 (4.3-11.1) K/mcL Hgb 9.7 L (12.9-16.9) g/dL Hct 31.3 L (37.5-50.1) % Plt Count 122 L (140-400) K/mcL Neutrophils # 6.6 (1.6-8.9) K/mcL BMP 03/07/18 03/08/18 00:46 01:11 Sodium 136 134 L Potassium 4.4 4.8 Chloride 96 L 95 L Carbon Dioxide 28 26 BUN 63 H 85 H Creatinine 5.56 H 7.01 H Glucose 97 95 Calcium 8.4 L 8.4 L Liver Function 03/07/18 Range/Units 00:46 Total Bilirubin 0.4 (0.3-1.0) mg/dL AST 14 (13-39) Units/L ALT 13 (7-52) Units/L Alkaline Phosphatase 95 (34-104) Units/L Albumin 2.9 L (3.5-5.7) g/dL Urine 03/08/18 Range/Units 04:46 Urine Color Yellow (Yellow) Urine Clarity Slightly Hazy (Clear) Urine pH 7.5 (5.0-8.0) pH Units Ur Specific Horace 1.015 (1.010-1.025) Urine Protein >=1000 H (Neg-Trace) mg/dL Urine Glucose (UA) 500 H (Normal) mg/dL - ABG Interpretation ABG results: PT/INR, D-dimer PT 15.6 Seconds (9.4-12.1) H 03/07/18 00:46 Consult Discharge Plan - Plan Referrals: Analilia Montero, AUTOMOTIVE REPAIR TECHNICIAN [Primary Care Provider] - <Goyo Cotton - Last Filed: 03/08/18 19:08> Hospitalist Progress Note - Encounter Date of Encounter: 03/08/18 - Exam Vitals: Temp Pulse Resp BP Pulse Ox 98.5 F 89 16 164/93 95 03/08/18 14:51 03/08/18 14:51 03/08/18 14:51 03/08/18 14:51 03/08/18 14:51 - Assessment and Plan (1) Pneumonia Current Visit: Yes Status: Acute (2) CAD (coronary artery disease) Current Visit: Yes Status: Chronic (3) Diabetes Current Visit: Yes Status: Chronic (4) HTN (hypertension) Current Visit: Yes Status: Chronic (5) DVT prophylaxis Current Visit: No Status: Acute (6) HLD (hyperlipidemia) Current Visit: Yes Status: Chronic (7) Elevated troponin Current Visit: Yes Status: Acute (8) Anemia Current Visit: Yes Status: Acute (9) Liver cirrhosis Current Visit: Yes Status: Chronic (10) Thrombocytopenia Current Visit: No Status: Chronic (11) ESRD (end stage renal disease) on dialysis Current Visit: No Status: Chronic (12) Sepsis Current Visit: Yes Status: Resolved (13) Diastolic CHF, chronic Current Visit: Yes Status: Chronic (14) Multifocal pneumonia Current Visit: Yes Status: Acute (15) Anxiety Current Visit: Yes Status: Chronic - Time Spent with Patient Total time spent is greater than 50% in coordination of care (as documented) at patient's floor/unit and/or counseling patient: Internal Medicine: Result - Labs CBC & Chem 7: 03/08/18 01:11 03/08/18 01:11 Labs: Short CBC 03/08/18 Range/Units 01:11 WBC 8.2 (4.3-11.1) K/mcL Hgb 9.7 L (12.9-16.9) g/dL Hct 31.3 L (37.5-50.1) % Plt Count 122 L (140-400) K/mcL Neutrophils # 6.6 (1.6-8.9) K/mcL BMP 03/07/18 03/08/18 00:46 01:11 Sodium 136 134 L Potassium 4.4 4.8 Chloride 96 L 95 L Carbon Dioxide 28 26 BUN 63 H 85 H Creatinine 5.56 H 7.01 H Glucose 97 95 Calcium 8.4 L 8.4 L Liver Function 03/07/18 Range/Units 00:46 Total Bilirubin 0.4 (0.3-1.0) mg/dL AST 14 (13-39) Units/L ALT 13 (7-52) Units/L Alkaline Phosphatase 95 (34-104) Units/L Albumin 2.9 L (3.5-5.7) g/dL Urine 03/08/18 Range/Units 04:46 Urine Color Yellow (Yellow) Urine Clarity Slightly Hazy (Clear) Urine pH 7.5 (5.0-8.0) pH Units Ur Specific Horace 1.015 (1.010-1.025) Urine Protein >=1000 H (Neg-Trace) mg/dL Urine Glucose (UA) 500 H (Normal) mg/dL - ABG Interpretation ABG results: PT/INR, D-dimer PT 15.6 Seconds (9.4-12.1) H 03/07/18 00:46 - Attending Attestation I examined this patient and my medical decision-making was reviewed with the Resident Physician on 03/08/18. I agree with the documented findings, disposition and treatment plan as described except to the extent set forth below. Mr Esquivel is currently admitted for pneumonia with effusion. He remains moderate to high risk due to potential for worsening clinical status. Mr Esquivel is doing OK. He is coughing a lot but unable to bring up sputum. No fever or chills. No Abd pain. Family at bedside feels he is doing better. Exam alert Comfortable Mucus membranes dry Heart reg Lungs with diffuse rhonchi. No wheeze Abd soft No edema I/P 1. Pneumonia 2. Parapneumonia effusion Further diagnoses and plan as above. <Yvrose Warren - Last Filed: 03/08/18 18:29> (3) Sepsis Qualifiers: Sepsis type: Haemophilus influenzae Qualified Code(s): A41.3 - Sepsis due to Hemophilus influenzae (4) Diabetes Qualifiers: Diabetes mellitus type: type 2 Diabetes mellitus tank terminal gauger insulin use: without tank terminal gauger use Diabetes mellitus complication status: with kidney complications Diabetes mellitus complication detail: with chronic kidney disease Chronic kidney disease stage: on chronic dialysis Qualified Code(s): E11.22 - Type 2 diabetes mellitus with diabetic chronic kidney disease; N18.6 - End stage renal disease; Z99.2 - Dependence on renal dialysis (6) HTN (hypertension) Qualifiers: Hypertension type: essential hypertension Qualified Code(s): I10 - Essential (primary) hypertension (9) Liver cirrhosis Qualifiers: Hepatic cirrhosis type: alcoholic cirrhosis Ascites presence: with ascites Qualified Code(s): K70.31 - Alcoholic cirrhosis of liver with ascites (10) HLD (hyperlipidemia) Qualifiers: Hyperlipidemia type: pure hypercholesterolemia Qualified Code(s): E78.00 - Pure hypercholesterolemia, unspecified; E78.0 - Pure hypercholesterolemia (11) CAD (coronary artery disease) Qualifiers: Coronary Disease-Associated Artery/Lesion type: bypass graft [place] vs. transplanted heart: [place] heart Associated angina: without angina Qualified Code(s): I25.810 - Atherosclerosis of coronary artery bypass graft(s) without angina pectoris (12) Anemia Qualifiers: Anemia type: due to chronic kidney disease Chronic kidney disease stage: unspecified stage Qualified Code(s): N18.9 - Chronic kidney disease, unspecified; D63.1 - Anemia in chronic kidney disease (14) Diarrhea Qualifiers: Diarrhea type: unspecified type Qualified Code(s): R19.7 - Diarrhea, unspecified <Goyo Cotton - Last Filed: 03/08/18 19:08> (1) Pneumonia Qualifiers: Pneumonia type: due to Haemophilus influenzae Laterality: bilateral Lung location: lower lobe of lung Qualified Code(s): J14 - Pneumonia due to Hemophilus influenzae (2) CAD (coronary artery disease) Qualifiers: Coronary Disease-Associated Artery/Lesion type: bypass graft [place] vs. transplanted heart: [place] heart Associated angina: without angina Qualified Code(s): I25.810 - Atherosclerosis of coronary artery bypass graft(s) without angina pectoris (3) Diabetes Qualifiers: Diabetes mellitus type: type 2 Diabetes mellitus tank terminal gauger insulin use: without penitentiary use Diabetes mellitus complication status: with kidney complications Diabetes mellitus complication detail: with chronic kidney disease Chronic kidney disease stage: on chronic dialysis Qualified Code(s): E11.22 - Type 2 diabetes mellitus with diabetic chronic kidney disease; N18.6 - End stage renal disease; Z99.2 - Dependence on renal dialysis (4) HTN (hypertension) Qualifiers: Hypertension type: essential hypertension Qualified Code(s): I10 - Essential (primary) hypertension (6) HLD (hyperlipidemia) Qualifiers: Hyperlipidemia type: pure hypercholesterolemia Qualified Code(s): E78.00 - Pure hypercholesterolemia, unspecified; E78.0 - Pure hypercholesterolemia (8) Anemia Qualifiers: Anemia type: due to chronic kidney disease Chronic kidney disease stage: unspecified stage Qualified Code(s): N18.9 - Chronic kidney disease, unspecified; D63.1 - Anemia in chronic kidney disease (9) Liver cirrhosis Qualifiers: Hepatic cirrhosis type: alcoholic cirrhosis Ascites presence: with ascites Qualified Code(s): K70.31 - Alcoholic cirrhosis of liver with ascites (12) Sepsis Qualifiers: Sepsis type: Haemophilus influenzae Qualified Code(s): A41.3 - Sepsis due to Hemophilus influenzae
[2018-03-08] MEDS: Melatonin 3 MG TABLET PO SCH (21:17)
[2018-03-08] MEDS: GuaiFENesin/Codeine Oral Soln 5 ML UDC PO PRN (22:26)
[2018-03-09] MEDS: Piperacillin/Tazobactam 3.375 GM in 0.9 % Sodium Chloride Mini Bag 100 ML IVPB SCH (00:12)
[2018-03-09] MEDS: Benzonatate 100 MG CAPSULE PO PRN ×2 (01:53→12:19)
[2018-03-09 02:22] LABS: Hematocrit 31.1 % (37.5-50.1); Immature Granulocytes % 0.5 % (0-4); Lymphocytes # 0.6 K/mcL (0.6-4.6); Lymphocytes % 7.6 %; Mean Corpuscular HGB Conc 32.2 g/dL (31.6-35.5); Mean Corpuscular Volume 87.1 fL (83.0-100.0); Mean Platelet Volume 9.6 fL (9.4-12.4); Monocytes # 0.6 K/mcL (0.0-1.3); Monocytes % 8.3 %; Neutrophils # 6.5 K/mcL (1.6-8.9); Platelet Count 130 K/mcL (140-400); Red Blood Count 3.57 M/mcL (4.19-5.50); Red Cell Distribution Width 17.1 % (11.5-14.5); Segmented Neutrophils % 83.6 %
[2018-03-09 02:46] LABS: Calcium 8.1 mg/dL (8.6-10.3)
[2018-03-09] MEDS ORDERED: Piperacillin/Tazobactam 3.375 GM in 0.9 % Sodium Chloride Mini Bag 100 ML IVPB SCH (03:00)
[2018-03-09] MEDS: Ipratropium/Albuterol Neb 3 ML IH SCH ×6 (04:15→23:50)
[2018-03-09] MEDS: GuaiFENesin/Codeine Oral Soln 5 ML UDC PO PRN ×2 (06:44→20:46)
[2018-03-09] MEDS: Insulin LISPRO 300 UNITS/3 ML VIAL SQ SCH ×4 (09:07→20:47)
[2018-03-09] MEDS: Gabapentin 300 MG CAPSULE PO SCH ×3 (09:13→20:43)
[2018-03-09] MEDS: MethylPREDNISolone 40 MG/ML VIAL IVP SCH (09:13)
[2018-03-09] MEDS: Metoprolol XL (24 HR) Succ 50 MG TAB.ER.24H PO SCH (09:13)
[2018-03-09] MEDS: Venlafaxine XR (24 HR) 150 MG CAP.ER.24H PO SCH (09:13)
--- NOTE | 2018-03-09 11:43 | Nephrology Progress Note ---
Date of Encounter: 03/09/18 Time of Encounter: 11:40 - Assessment and Plan (1) ESRD (end stage renal disease) on dialysis Current Visit: No Status: Chronic Current regimen is TTS at [facility]. HD completed yesterday. Avoid nephrotoxins and renal dose. [place] I/O. Will order additional UF or HD as needed. (2) Anemia Current Visit: Yes Status: Acute Goal Hgb 10-11. Hgb is 10 today. Qualifiers: Anemia type: due to chronic kidney disease Chronic kidney disease stage: unspecified stage Qualified Code(s): N18.9 - Chronic kidney disease, unspecified; D63.1 - Anemia in chronic kidney disease (3) Pneumonia Current Visit: Yes Status: Acute Continue abx per primary team. Qualifiers: Pneumonia type: due to unspecified organism Laterality: left Lung location: lower lobe of lung Qualified Code(s): J18.1 - Lobar pneumonia, unspecified organism (4) Dyspnea Current Visit: Yes Status: Acute s/p left thoracentesis 03/05/18. Admits he is feeling better after thoracentesis. Qualifiers: Qualified Code(s): R06.00 - Dyspnea, unspecified Subjective Principal diagnosis: SOB/fever Interval history: Pt seen and examined, doing better. SOB improved. Denies CP. Denies nausea/ vomiting/diarrhea. Objective - Vital Signs Vital signs: Vital Signs Temp Pulse Resp BP Pulse Ox 03/09/18 10:03 98.4 F 104 16 138/77 96 03/09/18 07:52 16 96 03/09/18 06:52 98.7 F 110 16 132/73 94 03/09/18 04:17 16 129/74 94 03/09/18 03:26 99 F 117 16 129/74 93 03/08/18 23:49 17 96 03/08/18 23:41 99.4 F 84 16 145/80 94 03/08/18 20:10 18 149/85 96 03/08/18 19:30 98.8 F 113 16 149/85 92 03/08/18 14:51 98.5 F 89 16 164/93 95 03/08/18 14:30 98.4 F 93 16 165/91 97 03/08/18 13:40 98.6 F 15 151/96 03/08/18 13:30 143/84 03/08/18 13:15 138/95 03/08/18 13:00 138/86 03/08/18 12:45 135/84 03/08/18 12:30 141/82 03/08/18 12:15 142/86 03/08/18 12:00 133/88 03/08/18 11:45 138/82 Intake and Output 03/08/18 03/09/18 03/09/18 23:59 07:59 15:59 Intake Total 200 / 200 Output Total 150 / 150 Balance 50 / 50 Intake: IV Fluids 200 / 200 Levaquin Premix 500mg/100mL 500 100 / 100 mg In 100 ml @ 100 mls/hr IVPB Q48H [facility] Rx#:[id number] Zosyn 3.375 GM In 0.9 % Sodium 100 / 100 Chloride (Mini-Bag +) 100 ML @ 25 mls/hr IVPB Q12H [facility] Rx#: [id number] Output: Catheter 150 / 150 Other: Stool Consistency loose Stool Color Brown # Bowel Movement Diapers 1 Weight 97 kg Blood Glucose* 301 193 Patient Weight 03/09/18 23:59 Weight 97 kg - General Appearance General appearance: Present: well-developed, well-nourished EENT: Present: ATNC, hearing intact, vision intact Neck: Present: supple Respiratory: Present: clear Cardiology: Present: no edema, normal S1, normal S2 Dialysis Vascular Access: Venous Catheter (Tunneled Line, DRSG C/D/I.) Gastrointestinal: Present: normoactive bowel sounds, no tenderness, no guarding Integumentary: Present: no rash, warm and dry Neurologic: Present: alert and oriented x3 Psychiatric: Present: mood/affect appropriate, cooperative - Lab 03/09/18 01:34 03/09/18 01:34 Most recent lab results Calcium 8.1 mg/dL (8.6-10.3) L 03/09/18 01:34 Magnesium 2.4 mg/dL (1.6-2.6) 03/07/18 00:46 Consult Discharge Plan - Plan Referrals: Analilia Montero, [employer]ELTER [Primary Care Provider] -
--- NOTE | 2018-03-09 13:55 | Internal Med Progress Note ---
Hospitalist Progress Note - Encounter Date of Encounter: 03/09/18 Time of Encounter: 12:45 - Subjective Interval History: Mr Esquivel is currently admitted for pneumonia and parapneumonic effusion. He remains moderate to high risk due to potential for worsening clinical status. Mr Esquivel is overall feeling better. He is coughing less with the codeine cough syrup. Was able to walk in [place] but needs oxygen. feels he is doing better. No GI issues. No fever or chills. Says he gets very dyspneic with movement. - Exam Vitals: Temp Pulse Resp BP Pulse Ox 98.4 F 104 12 138/77 96 03/09/18 10:03 03/09/18 10:03 03/09/18 11:36 03/09/18 10:03 03/09/18 11:36 Exam: General: Alert and oriented. Comfortable at this time. Sitting in chair eating lunch. Skin: Normal color, no rash, no lesions. H: Normocephalic. EENT: EOMI. Mucus membranes moist. No lesion. Cardiovascular: Normal S1 & S2, no rubs, murmurs or gallops. Pulse regular. Lungs: Coarse bilaterally. No wheeze today. Abdomen: Soft, non-tender, no rigidity. Normal bowel sounds. Extremities: No deformity, no edema or tenderness, no joint swelling or clubbing. Neurological: Normal cognition. Pulses: Carotid and radial pulses normal +2. Rest of the physical exam is non contributory - Assessment and Plan (1) Sepsis Current Visit: Yes Status: Resolved Assessment and Plan: Related to H influenza pneumonia. Has resolved. (2) Pneumonia Current Visit: Yes Status: Acute Assessment and Plan: Clinically he is slowly improving. Will continue abx today. Decrease steroids. Anticipate d/c tomorrow - will need oxygen qualification. (3) CAD (coronary artery disease) Current Visit: Yes Status: Chronic Assessment and Plan: Chronic issue. Asymptomatic at this time. (4) Diabetes Current Visit: Yes Status: Chronic Assessment and Plan: Uncontrolled. Continue current management as overall has been decreasing. (5) HTN (hypertension) Current Visit: Yes Status: Chronic Assessment and Plan: Controlled at this time. (6) DVT prophylaxis Current Visit: No Status: Acute (7) HLD (hyperlipidemia) Current Visit: Yes Status: Chronic Assessment and Plan: cont statin (8) Anemia Current Visit: Yes Status: Chronic Assessment and Plan: Related to CKD most likely. H/H has remained stable. (9) Liver cirrhosis Current Visit: Yes Status: Chronic Assessment and Plan: Chronic, unknown etiology CT chest 03/04 - Cirrhosis with abdominal ascites Hep panel negative in 01/15 Patient denies current or previous excessive alcohol use, and confirmed by family Recommend outpatient follow-up for further workup (10) Thrombocytopenia Current Visit: No Status: Chronic Assessment and Plan: Have slowly improved. (11) ESRD (end stage renal disease) on dialysis Current Visit: No Status: Chronic Assessment and Plan: Per nephrology (12) Diastolic CHF, chronic Current Visit: Yes Status: Chronic Assessment and Plan: Chronic, not in decompensation ECHO 08/15 - EF 55%, mild LVH, Mild diastolic dysfunction, mild pulm htn Continue to hold BB due to hypotension and sepsis on admit, resp status (13) Anxiety Current Visit: Yes Status: Chronic Assessment and Plan: cont home vistaril add buspar melatonin hs - Time Spent with Patient Total time spent is greater than 50% in coordination of care (as documented) at patient's floor/unit and/or counseling patient: Internal Medicine: Result - Labs CBC & Chem 7: 03/09/18 01:34 03/09/18 01:34 Labs: Short CBC 03/09/18 Range/Units 01:34 WBC 7.7 (4.3-11.1) K/mcL Hgb 10.0 L (12.9-16.9) g/dL Hct 31.1 L (37.5-50.1) % Plt Count 130 L (140-400) K/mcL Neutrophils # 6.5 (1.6-8.9) K/mcL BMP 03/09/18 01:34 Sodium 136 Potassium 5.0 Chloride 98 Carbon Dioxide 25 BUN 55 H Creatinine 4.84 H Glucose 144 H Calcium 8.1 L - ABG Interpretation ABG results: PT/INR, D-dimer PT 15.6 Seconds (9.4-12.1) H 03/07/18 00:46 Consult Discharge Plan - Plan Referrals: Analilia Montero, DRAMATIC ART TEACHER [Primary Care Provider] - (1) Sepsis Qualifiers: Sepsis type: Haemophilus influenzae Qualified Code(s): A41.3 - Sepsis due to Hemophilus influenzae (2) Pneumonia Qualifiers: Pneumonia type: due to Haemophilus influenzae Laterality: bilateral Lung location: lower lobe of lung Qualified Code(s): J14 - Pneumonia due to Hemophilus influenzae (3) CAD (coronary artery disease) Qualifiers: Coronary Disease-Associated Artery/Lesion type: bypass graft [place] vs. transplanted heart: [place] heart Associated angina: without angina Qualified Code(s): I25.810 - Atherosclerosis of coronary artery bypass graft(s) without angina pectoris (4) Diabetes Qualifiers: Diabetes mellitus type: type 2 Diabetes mellitus exterminator helper termite insulin use: without fci use Diabetes mellitus complication status: with kidney complications Diabetes mellitus complication detail: with chronic kidney disease Chronic kidney disease stage: on chronic dialysis Qualified Code(s): E11.22 - Type 2 diabetes mellitus with diabetic chronic kidney disease; N18.6 - End stage renal disease; Z99.2 - Dependence on renal dialysis (5) HTN (hypertension) Qualifiers: Hypertension type: essential hypertension Qualified Code(s): I10 - Essential (primary) hypertension (7) HLD (hyperlipidemia) Qualifiers: Hyperlipidemia type: mixed hyperlipidemia Qualified Code(s): E78.2 - Mixed hyperlipidemia (8) Anemia Qualifiers: Anemia type: due to chronic kidney disease Chronic kidney disease stage: unspecified stage Qualified Code(s): N18.9 - Chronic kidney disease, unspecified; D63.1 - Anemia in chronic kidney disease (9) Liver cirrhosis Qualifiers: Hepatic cirrhosis type: unspecified hepatic cirrhosis Ascites presence: with ascites Qualified Code(s): K74.60 - Unspecified cirrhosis of liver; R18.8 - Other ascites
[2018-03-09] MEDS: Amoxicillin/Clavulanate 500 MG TABLET PO SCH (17:21)
[2018-03-09] MEDS: Melatonin 3 MG TABLET PO SCH (20:43)
[2018-03-09] MEDS: Budesonide/Formoterol 80/4.5 MDI IH SCH (21:14)
[2018-03-10 00:54] LABS: Hematocrit 29.7 % (37.5-50.1); Hemoglobin 9.5 g/dL (12.9-16.9); Mean Corpuscular Hemoglobin 27.6 pg (28.0-33.3); Mean Corpuscular Volume 86.3 fL (83.0-100.0); Mean Platelet Volume 9.6 fL (9.4-12.4); Platelet Count 114 K/mcL (140-400); Red Blood Count 3.44 M/mcL (4.19-5.50); Red Cell Distribution Width 17.1 % (11.5-14.5)
[2018-03-10 01:13] LABS: Calcium 8.2 mg/dL (8.6-10.3); Potassium 5.2 mEq/L (3.5-5.1)
[2018-03-10] MEDS: Ipratropium/Albuterol Neb 3 ML IH SCH ×4 (04:34→15:49)
[2018-03-10] MEDS: Budesonide/Formoterol 80/4.5 MDI IH SCH (07:28)
[2018-03-10] MEDS: Insulin LISPRO 300 UNITS/3 ML VIAL SQ SCH ×2 (07:53→11:45)
[2018-03-10] MEDS ORDERED: *HR* Heparin 10,000 UNIT/10 ML VIAL IV PRN (07:54)
[2018-03-10] MEDS ORDERED: predniSONE 20 MG TABLET PO SCH (09:00)
[2018-03-10] MEDS ORDERED: NON-FORMULARY MEDICATION 1 EACH EACH (Losartan Potassium [Cozaar] 50 MG) PO SCH (09:00)
--- NOTE | 2018-03-10 11:26 | Nephrology Progress Note ---
Date of Encounter: 03/10/18 Time of Encounter: 11:24 - Assessment and Plan (1) ESRD (end stage renal disease) on dialysis Current Visit: No Status: Chronic Current regimen is TTS at [facility]. HD in progress for today. Avoid nephrotoxins and renal dose. [place] I/O. Will order additional UF or HD as needed. (2) Anemia Current Visit: Yes Status: Chronic Goal Hgb 10-11. Hgb is 9.5 today. Qualifiers: Anemia type: due to chronic kidney disease Chronic kidney disease stage: unspecified stage Qualified Code(s): N18.9 - Chronic kidney disease, unspecified; D63.1 - Anemia in chronic kidney disease (3) Pneumonia Current Visit: Yes Status: Acute Continue abx per primary team. Qualifiers: Pneumonia type: due to unspecified organism Laterality: left Lung location: lower lobe of lung Qualified Code(s): J18.1 - Lobar pneumonia, unspecified organism (4) Dyspnea Current Visit: Yes Status: Acute s/p left thoracentesis 03/05/18. Admits he is feeling better after thoracentesis. Qualifiers: Qualified Code(s): R06.00 - Dyspnea, unspecified Subjective Principal diagnosis: SOB/fever Interval history: Pt seen and examined during HD. Denies CP/SOB. Objective - Vital Signs Vital signs: Vital Signs Temp Pulse Resp BP Pulse Ox 03/10/18 07:30 16 97 03/10/18 06:25 98.8 F 74 18 126/76 98 03/10/18 04:38 14 100 03/10/18 03:30 98.1 F 79 16 143/76 93 03/09/18 23:52 16 100 03/09/18 22:35 97.9 F 73 17 136/68 97 03/09/18 21:19 16 100 03/09/18 18:32 98.3 F 71 16 153/79 91 03/09/18 16:34 97 03/09/18 16:01 18 97 03/09/18 16:00 98 F 98 16 129/83 95 03/09/18 11:36 12 96 Intake and Output 03/09/18 03/10/18 03/10/18 23:59 07:59 15:59 Intake Total 200 / 200 240 / 240 Balance 200 / 200 240 / 240 Intake: Oral 200 / 200 240 / 240 Other: Weight 97.3 kg Blood Glucose* 279 120 102 - General Appearance General appearance: Present: well-developed, well-nourished EENT: Present: ATNC, hearing intact, vision intact Neck: Present: supple Respiratory: Present: clear Cardiology: Present: no edema, normal S1, normal S2 Dialysis Vascular Access: Venous Catheter (Tunneled Line, DRSG c/D/I) Gastrointestinal: Present: normoactive bowel sounds, no tenderness, no guarding Integumentary: Present: no rash, warm and dry Neurologic: Present: alert and oriented x3 Psychiatric: Present: mood/affect appropriate, cooperative - Lab 03/10/18 00:30 03/10/18 00:30 Most recent lab results Calcium 8.2 mg/dL (8.6-10.3) L 03/10/18 00:30 Magnesium 2.6 mg/dL (1.6-2.6) 03/10/18 00:30 Consult Discharge Plan - Plan Referrals: Analilia Montero, SENIOR MILITARY ANALYST [Primary Care Provider] -
--- NOTE | 2018-03-10 13:41 | Discharge Summary ---
<Shaan Hurley - Last Filed: 03/10/18 18:16> - NOTES TO OUTPATIENT PROVIDER Notes to Outpatient Provider: Admitted for pneumonia with associated parapneumonic effusion, improving. Given a total of 10 days of antibiotics as well as a steroid taper. Also started on Symbicort and Mucinex. Complained of sinusitis at that admission and will be treated with amoxicillin with home prescription. Orders not resulted at time of discharge: Pending orders 03/07/18 11:27 AFB Culture, Body Fluid [TB] Routine AFB Smear [TB] Routine Culture,Body Fluid [RM] Routine 03/10/18 07:00 CXR, PA/Lateral [XR chest 2V] [XR] Routine 03/11/18 04:00 BMP [Basic Metabolic Panel] AM 0400 03/12/18 04:00 BMP [Basic Metabolic Panel] AM 0400 03/13/18 04:00 BMP [Basic Metabolic Panel] AM 0400 03/14/18 04:00 BMP [Basic Metabolic Panel] AM 0400 Date of Encounter: 03/10/18 Time of Encounter: 13:38 - Discharge Diagnosis (1) CAD (coronary artery disease) Priority: Secondary Status: Chronic Qualifiers: Coronary Disease-Associated Artery/Lesion type: bypass graft [place] vs. transplanted heart: [place] heart Associated angina: without angina Qualified Code(s): I25.810 - Atherosclerosis of coronary artery bypass graft(s) without angina pectoris (2) Diabetes Priority: Secondary Status: Chronic Qualifiers: Diabetes mellitus type: type 2 Diabetes mellitus fci insulin use: without terminal operator use Diabetes mellitus complication status: with kidney complications Diabetes mellitus complication detail: with chronic kidney disease Chronic kidney disease stage: on chronic dialysis Qualified Code(s) : E11.22 - Type 2 diabetes mellitus with diabetic chronic kidney disease; N18.6 - End stage renal disease; Z99.2 - Dependence on renal dialysis (3) HTN (hypertension) Priority: Secondary Status: Chronic Qualifiers: Hypertension type: essential hypertension Qualified Code(s): I10 - Essential (primary) hypertension (4) DVT prophylaxis Priority: Secondary Status: Acute (5) HLD (hyperlipidemia) Priority: Secondary Status: Chronic Qualifiers: Hyperlipidemia type: mixed hyperlipidemia Qualified Code(s): E78.2 - Mixed hyperlipidemia (6) Anemia Priority: Secondary Status: Chronic Qualifiers: Anemia type: due to chronic kidney disease Chronic kidney disease stage: unspecified stage Qualified Code(s): N18.9 - Chronic kidney disease, unspecified; D63.1 - Anemia in chronic kidney disease (7) Liver cirrhosis Priority: Secondary Status: Chronic Qualifiers: Hepatic cirrhosis type: unspecified hepatic cirrhosis Ascites presence: with ascites Qualified Code(s): K74.60 - Unspecified cirrhosis of liver; R18.8 - Other ascites (8) Thrombocytopenia Priority: Secondary Status: Chronic (9) ESRD (end stage renal disease) on dialysis Priority: Secondary Status: Chronic (10) Sepsis Priority: Primary Status: Resolved Qualifiers: Sepsis type: Haemophilus influenzae Qualified Code(s): A41.3 - Sepsis due to Hemophilus influenzae (11) Diastolic CHF, chronic Priority: Secondary Status: Chronic (12) Anxiety Priority: Secondary Status: Chronic (13) Pneumonia Priority: Secondary Status: Acute Qualifiers: Pneumonia type: due to Haemophilus influenzae Laterality: bilateral Lung location: lower lobe of lung Qualified Code(s): J14 - Pneumonia due to Hemophilus influenzae Hospital course: Mr. Esquivel is a 77 year old male with past medical history of CAD, diabetes, hyperlipidemia, hypertension, end-stage renal disease who presents with cough. He did fail outpatient treatment with Zithromax and Medrol Dosepak. He did report subjective fevers and chills at that time. Vital signs at presentation to the ER were significant for a fever of 101.1, pulse 103, respiratory rate 21 , blood pressure 171/99 and he was tolerating 3 L of oxygen at 94%. Laboratory results are significant for no leukocytosis, lactic acid of 2.2, troponin of 0.07. Chest x-ray was significant for pulmonary edema with left upper lobe pneumonia. CT scan was also obtained after admission and showed groundglass and nodular opacities in the left upper lobe most suggestive of infection, loculated left pleural effusion with adjacent atelectasis, severe CAD, cirrhosis with abdominal ascites. He was admitted to the hospital for further evaluation and management of severe sepsis secondary to pneumonia. During course of hospital stay, patient did gradually improve. He was treated with vancomycin, Zosyn, Levaquin with improvement of symptoms. Vancomycin was discontinued shortly after MRSA nasal swab was negative for colonization. He was fluid resuscitated and his sepsis did resolve. He did require thoracentesis for the loculated effusion which showed a transudative effusion, likely parapneumonic. He was also given a short course of steroids as well as started on Symbicort for wheezing on auscultation. Pleural fluid was sent for cytology and showed dense lymphocytic infiltrate likely secondary to reactive and negative for malignancy. Gram stain was performed and was negative for growth. Sputum culture was obtained and showed Haemophilus influenza. Cultures were negative for growth. On day of discharge, patient symptoms had nearly resolved and he was eager to return home. He was qualified for oxygen during this hospital stay. He received a total of 7 days of antibiotic therapy will be discharged home on an additional 3 days of Augmentin. He will also be given a prescription for Mucinex, prednisone taper, Symbicort. He will be discharged home in stable medical condition with instructions to take all medications as prescribed and to follow up with his primary care physician in 5- 7 days as well as agent broker. Discharge discussed with: patient, nurse - Time Spent with Patient Total time spent providing and/or coordinating discharge services: - Discharge Medications Prescriptions: Amoxicillin/Clavulanate [Augmentin] 500 mg PO BIDWM 3 Days #6 tablet Benzonatate [Tessalon] 100 mg PO TID PRN #21 capsule PRN Reason: Cough Budesonide/Formoterol 80/4.5 [Symbicort 80/4.5] 2 puff IH BIDR #1 inhaler Buspirone HCl [Buspar] 10 mg PO TID #21 tablet GuaiFENesin ER [Mucinex] 1,200 mg PO BID #14 tab GuaiFENesin/Codeine [Robitussin w/Codeine] 10 ml PO HS PRN 5 Days #60 liquid PRN Reason: Cough predniSONE [PredniSONE] See Taper PO DAILY 6 Days #9 tablet Home Medications: Atorvastatin Calcium [Lipitor] 20 mg PO HS 01/15/18 [History] Clopidogrel [Plavix] 75 mg PO DAILY 01/15/18 [History] Furosemide [Lasix] 40 mg PO DAILY 01/15/18 [History] Gabapentin [Neurontin] 300 mg PO TID 01/15/18 [History] Venlafaxine XR (24 HR) [Effexor Xr] 150 mg PO DAILY 01/15/18 [History] Trazodone HCl 100 mg PO HS PRN 01/31/18 [History] Metoprolol XL (24 HR) Succ [Toprol Xl] 200 mg PO DAILY tab.er.24h 02/01/18 [Rx] Azithromycin [Azithromycin 6-Tab Pack] 250 mg PO PER PKG DI 03/04/18 [History] Losartan Potassium [Cozaar] 50 mg PO DAILY 03/04/18 [History] MethylPREDNISolone [MethylPREDNISolone Dose Pack] 4 mg PO AD 03/04/18 [History] hydrOXYzine HCl [Hydroxyzine HCl] 25 mg PO Q8H PRN 03/04/18 [History] Amoxicillin/Clavulanate [Augmentin] 500 mg PO BIDWM 3 Days #6 tablet 03/10/18 [ Rx] Benzonatate [Tessalon] 100 mg PO TID PRN #21 capsule 03/10/18 [Rx] Budesonide/Formoterol 80/4.5 [Symbicort 80/4.5] 2 puff IH BIDR #1 inhaler 03/10 [Rx] Buspirone HCl [Buspar] 10 mg PO TID #21 tablet 03/10/18 [Rx] GuaiFENesin ER [Mucinex] 1,200 mg PO BID #14 tab 03/10/18 [Rx] GuaiFENesin/Codeine [Robitussin w/Codeine] 10 ml PO HS PRN 5 Days #60 liquid 04/17 [Rx] predniSONE [PredniSONE] See Taper PO DAILY 6 Days #9 tablet 03/10/18 [Rx] Allergies/Adverse Reactions: 3 Allergy/AdvReac Type Severity Reaction Status Date / Time No Known Allergies Allergy Verified 01/31/18 10:47 Date of admission: 03/05/18 18:05 Primary care physician: Analilia Montero CNP Consults: 03/07/18 09:37 Consult to Interventional Radiology [CONS] Routine Consulting Provider: Radiology Interventional Cols Reason for Consult: Loculated left pleural effusion Call Completed: Yes 03/08/18 07:15 Consult to Dialysis [CONS] ONCE 03/09/18 13:28 Consult to Prototype Special Build [CONS] Routine Reason for SW Consult: Discharge planning. 03/10/18 07:15 Consult to Dialysis [CONS] ONCE Discharging clinician: Shaan Hurley Anticipated date of discharge: 03/10/18 - Constitutional Vitals: Temp Pulse Resp BP Pulse Ox 98.1 F 74 14 160/75 97 03/10/18 13:30 03/10/18 06:25 03/10/18 13:30 03/10/18 13:30 03/10/18 07:30 General appearance: Present: A&O X 3, pleasant, no acute distress Exam: Gen.: Vitals noted. No acute distress. AAOx3, resting comfortably in bed HEENT: PERRL/EOMI, oropharynx clear, Normocephalic, atraumatic, MMM Cardiac: RRR, no murmur, +S1/S2 Pulmonary: Diminished lung sounds in bases, otherwise CTA bilaterally, no wheezes, rales or rhonchi, equal chest expansion Abdomen: soft, nontender, BS noted, no guarding, no rebound. MSK: ROM intact, no joint swelling noted Extremities: no BLE edema, nontender calf, no cyanosis or clubbing Neuro: A&Ox3, moves all extremities, no focal deficits Psych: Appropriate mood and behavior - Patient Status Disposition: Home, Self-Care Condition: Good Functional capacity at discharge: independent ambulation Overall status at discharge: patient is progressing back to baseline - Discharge Instructions Follow Up With: Prashanth Rodriguez DO [Resident] - 03/30/18 3:00 pm Analilia Montero, NÉSTOR [Primary Care Provider] - Additional Instructions: Please follow up with your PCP and take all medications as prescribed. Continue taking your steroid as directed and finish your course of antibiotics. Return to hospital if your symptoms worsen - Diet and Activity Activity: increase activity as tolerated, resume usual activities as tolerated Diet: advance to your usual diet, low salt diet <Goyo Cotton - Last Filed: 03/10/18 18:54> Orders not resulted at time of discharge: Pending orders 03/07/18 11:27 AFB Culture, Body Fluid [TB] Routine AFB Smear [TB] Routine Culture,Body Fluid [RM] Routine Date of Encounter: 03/10/18 - Discharge Diagnosis (1) CAD (coronary artery disease) Status: Chronic Qualifiers: Coronary Disease-Associated Artery/Lesion type: bypass graft [place] vs. transplanted heart: [place] heart Associated angina: without angina Qualified Code(s): I25.810 - Atherosclerosis of coronary artery bypass graft(s) without angina pectoris (2) Diabetes Status: Chronic Qualifiers: Diabetes mellitus type: type 2 Diabetes mellitus fci insulin use: without fci use Diabetes mellitus complication status: with kidney complications Diabetes mellitus complication detail: with chronic kidney disease Chronic kidney disease stage: on chronic dialysis Qualified Code(s) : E11.22 - Type 2 diabetes mellitus with diabetic chronic kidney disease; N18.6 - End stage renal disease; Z99.2 - Dependence on renal dialysis (3) HTN (hypertension) Status: Chronic Qualifiers: Hypertension type: essential hypertension Qualified Code(s): I10 - Essential (primary) hypertension (4) DVT prophylaxis Status: Acute (5) HLD (hyperlipidemia) Status: Chronic Qualifiers: Hyperlipidemia type: mixed hyperlipidemia Qualified Code(s): E78.2 - Mixed hyperlipidemia (6) Anemia Status: Chronic Qualifiers: Anemia type: due to chronic kidney disease Chronic kidney disease stage: unspecified stage Qualified Code(s): N18.9 - Chronic kidney disease, unspecified; D63.1 - Anemia in chronic kidney disease (7) Liver cirrhosis Status: Chronic Qualifiers: Hepatic cirrhosis type: unspecified hepatic cirrhosis Ascites presence: with ascites Qualified Code(s): K74.60 - Unspecified cirrhosis of liver; R18.8 - Other ascites (8) Thrombocytopenia Status: Chronic (9) ESRD (end stage renal disease) on dialysis Status: Chronic (10) Sepsis Status: Resolved Qualifiers: Sepsis type: Haemophilus influenzae Qualified Code(s): A41.3 - Sepsis due to Hemophilus influenzae (11) Diastolic CHF, chronic Status: Chronic (12) Anxiety Status: Chronic (13) Pneumonia Status: Acute Qualifiers: Pneumonia type: due to Haemophilus influenzae Laterality: bilateral Lung location: lower lobe of lung Qualified Code(s): J14 - Pneumonia due to Hemophilus influenzae Hospital course: Mr. Esquivel is a 77 year old male - Time Spent with Patient Total time spent providing and/or coordinating discharge services: 39min Date of admission: 03/05/18 18:05 Primary care physician: Analilia Montero CNP Consults: 03/07/18 09:37 Consult to Interventional Radiology [CONS] Routine Consulting Provider: Radiology Interventional Cols Reason for Consult: Loculated left pleural effusion Call Completed: Yes 03/08/18 07:15 Consult to Dialysis [CONS] ONCE 03/09/18 13:28 Consult to Prototype Special Build [CONS] Routine Reason for SW Consult: Discharge planning. 03/10/18 07:15 Consult to Dialysis [CONS] ONCE - Constitutional Vitals: Temp Pulse Resp BP Pulse Ox 98.4 F 67 18 139/79 97 03/10/18 14:37 03/10/18 14:37 03/10/18 15:49 03/10/18 14:37 03/10/18 15:49 - Attending Attestation I examined this patient and my medical decision-making was reviewed with the Resident Physician on 03/10/18. I agree with the documented findings, disposition and treatment plan as described except to the extent set forth below. Mr Esquivel has been admitted for pneumonia and parapneumonic effusion. He is now afebrile. He is requiring oxygen and this has been set up. He is ready for discharge home. Exam alert Comfortable Mucus membranes dry Heart reg Decreased breath sounds No edema Abd soft Plan D/C today.
[2018-03-10] MEDS: Venlafaxine XR (24 HR) 150 MG CAP.ER.24H PO SCH (14:06)
[2018-03-10] MEDS: Metoprolol XL (24 HR) Succ 50 MG TAB.ER.24H PO SCH (14:06)
[2018-03-10] MEDS: Amoxicillin/Clavulanate 500 MG TABLET PO SCH (14:06)
[2018-03-10] MEDS: Gabapentin 300 MG CAPSULE PO SCH (14:06)
[2018-03-10 14:40] VITALS: BP 139/79
--- NOTE | 2018-03-10 19:12 | Physician Discharge Referral ---
Home Health/Hosp Referral Info Transfer to: Home Health Provider in Charge Post Discharge: PCP - Diagnosis (1) CAD (coronary artery disease) Priority: Secondary Status: Chronic (2) Diabetes Priority: Secondary Status: Chronic (3) HTN (hypertension) Priority: Secondary Status: Chronic (4) HLD (hyperlipidemia) Priority: Secondary Status: Chronic (5) Anemia Priority: Secondary Status: Chronic (6) Liver cirrhosis Priority: Secondary Status: Chronic (7) Thrombocytopenia Priority: Secondary Status: Chronic (8) ESRD (end stage renal disease) on dialysis Priority: Secondary Status: Chronic (9) Sepsis Priority: Primary Status: Resolved (10) Diastolic CHF, chronic Priority: Secondary Status: Chronic (11) Anxiety Priority: Secondary Status: Chronic (12) Pneumonia Priority: Primary Status: Resolved - Respiratory Orders Oxygen / L per min (2) Smoking Cessation: Smoking cessation has been advised. For more information, call the [place] Tobacco Quit Line at 3-985-KKKJ-NOW. - Diet/Nutrition Diet/Nutrition Orders: Renal - Activity Activity Orders: Up ad rico - Services Needed Following services are medically necessary services: Nursing, Physical Therapy, Occupational Therapy - Transfer Medications Prescriptions: Amoxicillin/Clavulanate [Augmentin] 500 mg PO BIDWM 3 Days #6 tablet Benzonatate [Tessalon] 100 mg PO TID PRN #21 capsule PRN Reason: Cough Budesonide/Formoterol 80/4.5 [Symbicort 80/4.5] 2 puff IH BIDR #1 inhaler Buspirone HCl [Buspar] 10 mg PO TID #21 tablet GuaiFENesin ER [Mucinex] 1,200 mg PO BID #14 tab GuaiFENesin/Codeine [Robitussin w/Codeine] 10 ml PO HS PRN 5 Days #60 liquid PRN Reason: Cough predniSONE [PredniSONE] See Taper PO DAILY 6 Days #9 tablet Home Medications: Atorvastatin Calcium [Lipitor] 20 mg PO HS 01/15/18 [History] Clopidogrel [Plavix] 75 mg PO DAILY 01/15/18 [History] Furosemide [Lasix] 40 mg PO DAILY 01/15/18 [History] Gabapentin [Neurontin] 300 mg PO TID 01/15/18 [History] Venlafaxine XR (24 HR) [Effexor Xr] 150 mg PO DAILY 01/15/18 [History] Trazodone HCl 100 mg PO HS PRN 01/31/18 [History] Metoprolol XL (24 HR) Succ [Toprol Xl] 200 mg PO DAILY tab.er.24h 02/01/18 [Rx] Azithromycin [Azithromycin 6-Tab Pack] 250 mg PO PER PKG DI 03/04/18 [History] Losartan Potassium [Cozaar] 50 mg PO DAILY 03/04/18 [History] MethylPREDNISolone [MethylPREDNISolone Dose Pack] 4 mg PO AD 03/04/18 [History] hydrOXYzine HCl [Hydroxyzine HCl] 25 mg PO Q8H PRN 03/04/18 [History] Amoxicillin/Clavulanate [Augmentin] 500 mg PO BIDWM 3 Days #6 tablet 03/10/18 [ Rx] Benzonatate [Tessalon] 100 mg PO TID PRN #21 capsule 03/10/18 [Rx] Budesonide/Formoterol 80/4.5 [Symbicort 80/4.5] 2 puff IH BIDR #1 inhaler 03/10 [Rx] Buspirone HCl [Buspar] 10 mg PO TID #21 tablet 03/10/18 [Rx] GuaiFENesin ER [Mucinex] 1,200 mg PO BID #14 tab 03/10/18 [Rx] GuaiFENesin/Codeine [Robitussin w/Codeine] 10 ml PO HS PRN 5 Days #60 liquid 04/17 [Rx] predniSONE [PredniSONE] See Taper PO DAILY 6 Days #9 tablet 03/10/18 [Rx] Allergies/Adverse Reactions: 3 Allergy/AdvReac Type Severity Reaction Status Date / Time No Known Allergies Allergy Verified 01/31/18 10:47 Certification: Further, I certify that my clinical findings support that this patient is homebound (i.e. absences from home require considerable and taxing effort and are for medical reasons or holiness services or infrequently or short duration when for other reasons) because: Homebound Reason: Patient requires assistance of a person or device to safely leave home, Leaving home requires considerable and taxing effort due to condition, Severity of cardiac or pulmonary status limits activity tolerance Attestation: My signature below is to certify that this patient is under my care and that I, or nurse practitioner, or a physician's escrow assistant working with me, has a face-to -face encounter with this patient.
== END 2018-03-10 16:31 | disposition home or self-care (01) | DRG 871 ==
LOC: EMEROOARM 00:49 → 3NENU 00:49 → SUATTDRO 03:20 → 3NENU 04:10 → SUATTDRO 03-05 18:05
PROVIDERS: ADMIT Family Medicine; ATTEND Internal Medicine

== ENCOUNTER 2018-07-02 20:06 | Inpatient (IN) ==
[2018-07-02] MEDS ORDERED: Ondansetron ODT 4 MG TAB.RAPDIS SL ONE (20:18)
[2018-07-02] MEDS ORDERED: Insulin Human Regular 10 UNIT in 0.9 % Sodium Chloride 10 ML IV ONE (20:24)
[2018-07-02] MEDS ORDERED: *HR* Dextrose 50 % in Water (Syg) 50 ML SYRINGE IVP ONE (20:25)
--- NOTE | 2018-07-02 20:30 | Emergency Department Note ---
Disposition Clinical Impression: Acute hyperkalemia, ESRD (end stage renal disease) Disposition: Admitted As Inpatient Condition: Serious Referrals: NONE,PCP [Primary Care Provider] - Forms: ED Satisfaction Letter Time of Disposition: 22:01 General Adult HPI - General Chief complaint: ED Altered Mental Status Stated complaint: Disorientation Time Seen by Provider: 07/02/18 20:08 Source: patient Mode of arrival: EMS Limitations: altered mental status Nursing Notes Reviewed: Yes Vital Signs Reviewed: Yes - History of Present Illness HPI Narrative: 78 y/o M ESRD HD MWF presents with confusion, dyspnea, nausea and diarrhea after missing 2 dialysis sessions. He presents by EMS for AMS and is poor historian. He reports increased shortness of breath with increased use of prn home oxygen with out increase in cough. He admits to difficult with urinated with chronic [place] in place but denies hematuria or burning pain. Denies chest pain or vomiting. report frequent falls with last 3 days ago unwitnessed with injury to left ear followed by vomiting . is also unable to provide name of nephrology. Patient denies headache but is still unable to provide history of fall. Pt Subjective Complaint: nausa & diarrhea Onset (ago): unknown - Related Data Home Medications Medication Instructions Recorded Confirmed Atorvastatin Calcium [Lipitor] 20 mg PO HS 01/15/18 03/04/18 Clopidogrel [Plavix] 75 mg PO DAILY 01/15/18 03/04/18 Furosemide [Lasix] 40 mg PO DAILY 01/15/18 03/04/18 Gabapentin [Neurontin] 300 mg PO TID 01/15/18 03/04/18 Venlafaxine XR (24 HR) [Effexor Xr] 150 mg PO DAILY 01/15/18 03/04/18 Trazodone HCl 100 mg PO HS PRN 01/31/18 03/04/18 Azithromycin [Azithromycin 6-Tab 250 mg PO PER PKG DI 03/04/18 03/04/18 Pack] Losartan Potassium [Cozaar] 50 mg PO DAILY 03/04/18 03/04/18 MethylPREDNISolone 4 mg PO AD 03/04/18 03/04/18 [MethylPREDNISolone Dose Pack] hydrOXYzine HCl [Hydroxyzine HCl] 25 mg PO Q8H PRN 03/04/18 03/04/18 Previous Rx's Medication Instructions Recorded Metoprolol XL (24 HR) Succ [Toprol 200 mg PO DAILY tab.er.24h 02/01/18 Xl] Amoxicillin/Clavulanate [Augmentin] 500 mg PO BIDWM 3 Days #6 tablet 03/10/18 Benzonatate [Tessalon] 100 mg PO TID PRN #21 capsule 03/10/18 Budesonide/Formoterol 80/4.5 2 puff IH BIDR #1 inhaler 03/10/18 [Symbicort 80/4.5] Buspirone HCl [Buspar] 10 mg PO TID #21 tablet 03/10/18 GuaiFENesin ER [Mucinex] 1,200 mg PO BID #14 tab 03/10/18 GuaiFENesin/Codeine [Robitussin 10 ml PO HS PRN 5 Days #60 liquid 03/10/18 w/Codeine] predniSONE [PredniSONE] See Taper PO DAILY 6 Days #9 tablet 03/10/18 Allergies Allergy/AdvReac Type Severity Reaction Status Date / Time No Known Allergies Allergy Verified 01/31/18 10:47 Limitations: ROS unobtainable due to patients medical condition Cardiovascular: Denies: chest pain, palpitations Respiratory: Reports: dyspnea. Denies: cough Gastrointestinal: Reports: nausea, diarrhea. Denies: abdominal pain, vomiting Genitourinary: Denies: hematuria Neurological: Denies: headache Past Medical History - Past Medical History Medical history: Reports: aortic aneurysm, arthritis, coronary artery disease, diabetes, hyperlipidemia, hypertension, renal disease Surgical history: Reports: angioplasty/stent, coronary bypass (CABG), orthopedic, other, other Psychiatric history: Reports: anxiety, depression - Social History Smoking Status: Never smoker Smokeless Tobacco Status: No Alcohol use: Reports: none Drug use: Reports: none Physical Exam - General Limitations: altered mental status General appearance: alert, appears intoxicated, anxious, obese - Head Head exam: atraumatic, normocephalic - Eye Eye exam: Present: normal appearance, PERRL, EOMI - ENT ENT exam: normal exam, mucous membranes dry - Expanded ENT Exam External ear exam: Present: auricular trauma (external left ear abrasion ) - Chest Chest inspection: Present: normal inspection, symmetric chest wall rise. Absent: tenderness - Respiratory Respiratory exam: Present: respiratory distress, wheezes - Cardiovascular Cardiovascular exam: Present: regular rate, normal rhythm, normal heart sounds - Abdominal Exam Abdominal exam: Present: soft, Non-Tender, distention. Absent: guarding, rebound - Extremities Exam Extremities exam: Present: normal inspection, full ROM, other (left arm fistula palpated thrum). Absent: tenderness, pedal edema - Neurological Exam Neurological exam: Present: alert. Absent: oriented X3 - Expanded Neurological Exam Patient oriented to: Present: person, place. Absent: time Speech: Present: fluid speech Coma Scale Eye Opening: Spontaneous Coma Scale Motor Response: Obeys Commands Coma Scale Verbal Response: Confused Coma Scale Total: 14 - Psychiatric Psychiatric exam: Present: agitated, anxious - Skin Skin exam: Present: warm, dry, intact Course Course Narrative: 78 y/o M ESRD presents with AMS after missed two dialysis sessions with EKG changes thus treated with calcium gluconate, insulin, dextrose and albuterol . BMP showed hyperkalemia 8 and electrolyte changes. Essentially normal CBC. - Reevaluation(s) Reevaluation #1: Patient remains confused. provides new history of an unwitnessed fall . Patient has abrasion to left ear with dried blood and midline tenderness thus will evaluate with CT head and Neck. UA with WBC and Leuk esterase consistent with UTI in patient with chronic england presents with AMS thus treat with rocephin. Patient questions need to stay and repeats that he wants to go home and do dialysis tomorrow although he doesn't know day of week. I explained urgent need for dialysis and patient agrees to stay. Time: 21:56 Reevaluation #2: On sign out patient still awaiting head and neck CT for unwittnessed fall with injury to head followed by vomiting. Time: 22:23 - Consultations Consultation #1: Case discussed with Dr Segura of Nephrology who accept consult and advises patient needs urgent dialysis so will activate dialysis team. Time: 21:00 Consultation #2: Case discussed with Dr Barnett of hospitalist team who accepts patient for admission. Time: 21:51 Vital Signs Temperature 97.7 F 07/02/18 20:12 Pulse Rate 66 07/02/18 20:12 Respiratory Rate 21 07/02/18 20:12 Blood Pressure 140/86 07/02/18 20:12 O2 Sat by Pulse Oximetry 100 07/02/18 20:12 Temperature 97.7 F 07/02/18 20:43 Pulse Rate 58 07/02/18 20:43 Respiratory Rate 18 07/02/18 21:45 Blood Pressure 140/86 07/02/18 20:43 O2 Sat by Pulse Oximetry 98 07/02/18 21:45 Oxygen Delivery Oxygen Delivery Nasal Cannula Medical Decision Making - Medical Records Medical records reviewed: Yes I reviewed the patient's medical records. - Lab Data Lab results reviewed: Yes I reviewed the patient's lab results. Result diagrams: 07/02/18 20:30 07/02/18 20:30 Lab Results 07/02/18 07/02/18 07/02/18 Range/Units 20:30 20:30 20:41 WBC 7.6 (4.3-11.1) K/mcL RBC 4.20 (4.19-5.50) M/mcL Hgb 12.2 L (12.9-16.9) g/dL Hct 38.5 (37.5-50.1) % MCV 91.7 (83.0-100.0) fL MCH 29.0 (28.0-33.3) pg MCHC 31.7 (31.6-35.5) g/dL RDW 15.0 H (11.5-14.5) % Plt Count 100 L (140-400) K/mcL MPV 10.5 (9.4-12.4) fL Immature Gran % 0.5 (0-4) % Seg Neutrophils % 74.4 % Lymphocytes % 13.9 % Monocytes % 10.3 % Eosinophils % 0.5 % Basophils % 0.4 % Neutrophils # 5.7 (1.6-8.9) K/mcL Lymphocytes # 1.1 (0.6-4.6) K/mcL Monocytes # 0.8 (0.0-1.3) K/mcL Eosinophils # 0.0 (0.0-0.6) K/mcL Basophils # 0.0 (0.0-0.2) K/mcL Immature Plt Fraction 4.5 (1.1-6.1) % Sodium 134 L (136-145) mEq/L Potassium 8.0 H* (3.5-5.1) mEq/L Chloride 93 L (98-107) mEq/L Carbon Dioxide 20 L (23-29) mEq/L BUN 112 H (8-23) mg/dL Creatinine 12.91 H (0.70-1.30) mg/dL Est GFR ( Amer) 5 L (> 60) Est GFR (Non-Af Amer) 4 L (> 60) BUN/Creatinine Ratio 9 (6-26) Glucose 86 (70-105) mg/dL Calculated Osmolality 313 H (280-300) Calcium 8.3 L (8.6-10.3) mg/dL Total Bilirubin 0.7 (0.3-1.0) mg/dL Direct Bilirubin 0.4 H (0.0-0.2) mg/dL Indirect Bilirubin 0.3 (0.0-1.2) mg/dL AST 14 (13-39) Units/L ALT 19 (7-52) Units/L Alkaline Phosphatase 132 H (34-104) Units/L Serum Total Protein 9.1 H (6.4-8.9) g/dL Albumin 3.6 (3.5-5.7) g/dL Globulin 5.5 H (2.4-3.5) g/dL Albumin/Globulin Ratio 0.7 L (1.1-2.2) Urine Color Yellow (Yellow) Urine Clarity Turbid A (Clear) Urine pH 8.0 (5.0-8.0) pH Units Ur Specific [place] 1.019 (1.010-1.025) Urine Protein >=1000 H (Neg-Trace) mg/dL Urine Glucose (UA) Normal (Normal) mg/dL Urine Ketones Negative (Negative) mg/dL Urine Blood Negative (Negative) Urine Nitrite Negative (Negative) Urine Bilirubin Negative (Negative) Urine Urobilinogen Normal (Normal) mg/dL Ur Leukocyte Esterase Large H (Negative) Urine Microscopic RBC 0-3 (0-3) per hpf Urine Microscopic WBC TNTC H (0-3) per hpf Ur Squamous Epith Cells Many H (None-Few) per lpf Triple Phos Crystals Present Urine Bacteria Many H (None-Few) per hpf Hyaline Casts None Seen (None-Few) per lpf Ur Culture Indicated? NO. A (NO) - Radiology Data Radiology results reviewed: Yes I reviewed the patient's radiology results. - EKG Data EKG #1 Rate: normal QTc: prolonged When compared to previous EKG there are: changes noted Interpretation: other (diffuse widened QRS with peaked t waves) Attestation Statement - Attestation Attestation: I, Tapan Hernandez, examined this patient and my medical decision-making was reviewed with the [employer]/PA/Advanced Practice Nurse/Resident Physician. I agree with the documented findings, disposition and treatment plan as described except to the extent set forth below. 78-year-old male who presents emergency Department with concerns of confusion. Patient has not been to his dialysis as sessions over the past week secondary to the volar Vortex. Patient reports having fallen twice over the past week, is awake alert and answering questions in the emergency department however he does have answers that do not necessarily match up with questions at times. He does seem to be confused per the family members. Patient has a potassium of 8. He was given calcium, bicarbonate, insulin, glucose, albuterol in the emergency department Dr. Farnsworth get her was counseled that who agreed with the plan for emergent dialysis. CT of the head pending at this time.
[2018-07-02 20:48] LABS: Basophils % 0.4 %; Eosinophils % 0.5 %; Hemoglobin 12.2 g/dL (12.9-16.9)
[2018-07-02 20:50] LABS: Hematocrit 38.5 % (37.5-50.1); Immature Granulocytes % 0.5 % (0-4); Immature Platelets 4.5 % (1.1-6.1); Lymphocytes # 1.1 K/mcL (0.6-4.6); Lymphocytes % 13.9 %; Mean Corpuscular HGB Conc 31.7 g/dL (31.6-35.5); Mean Corpuscular Volume 91.7 fL (83.0-100.0); Mean Platelet Volume 10.5 fL (9.4-12.4); Monocytes # 0.8 K/mcL (0.0-1.3); Monocytes % 10.3 %; Platelet Count 100 K/mcL (140-400); Segmented Neutrophils % 74.4 %
[2018-07-02 20:52] LABS: Neutrophils # 5.7 K/mcL (1.6-8.9)
[2018-07-02 20:54] LABS: Bilirubin,Urine Negative (Negative); Blood,Urine Negative (Negative); Clarity,Urine Turbid (Clear); Color,Urine Yellow (Yellow); Glucose,Urine (UA) Normal (Normal); Ketones,Urine Negative (Negative); Leukocyte Esterase,Urine Large (Negative); Nitrite,Urine Negative (Negative); Protein,Urine >=1000 mg/dL (Neg-Trace); Specific Gravity,Urine 1.019 (1.010-1.025); Urobilinogen,Urine Normal (Normal)
[2018-07-02 20:56] LABS: Hyaline Casts,Urine None Seen per lpf (None-Few); Squamous Epithelial Cell,Urine Many per lpf (None-Few); WBC,Urine TNTC per hpf (0-3)
[2018-07-02] MEDS: Albuterol 2.5 MG/3 ML NEBULIZER IH ONE ×2 (20:56→21:44)
[2018-07-02 21:07] LABS: RBC,Urine 0-3 per hpf (0-3)
[2018-07-02 21:08] LABS: Bacteria,Urine Many per hpf (None-Few); Triple Phosphate Crystal,Urine Present
[2018-07-02 21:13] LABS: Albumin 3.6 g/dL (3.5-5.7); Albumin/Globulin Ratio 0.7 (1.1-2.2); Bilirubin,Direct 0.4 mg/dL (0.0-0.2); Bilirubin,Indirect 0.3 mg/dL (0.0-1.2); Bilirubin,Total 0.7 mg/dL (0.3-1.0); Calcium 8.3 mg/dL (8.6-10.3); Globulin 5.5 g/dL (2.4-3.5); Total Protein 9.1 g/dL (6.4-8.9)
[2018-07-02] MEDS ORDERED: Albuterol 2.5 MG/3 ML NEBULIZER ONE (21:39)
[2018-07-02] MEDS ORDERED: cefTRIAXone 1,000 MG in Water for inj. (sterile) 20 ML 10 ML IVP ONE (21:53)
[2018-07-02] MEDS ORDERED: *HR* Heparin 10,000 UNIT/10 ML VIAL IV PRN (22:54)
[2018-07-02] MEDS ORDERED: 0.9 % Sodium Chloride 250 ML IVC PRN (22:54)
[2018-07-02] MEDS ORDERED: 0.9 % Sodium Chloride 1,000 ML PRIME SCH (23:00)
[2018-07-03] MEDS ORDERED: Naloxone 0.4 MG/ML INJ IVP PRN (00:09)
[2018-07-03] MEDS ORDERED: Dextrose Gel 15 GM/37.5 ML TUBE PO PRN ×2 (00:12)
[2018-07-03] MEDS ORDERED: D5% in Water 1,000 ML IVC PRN (00:12)
[2018-07-03] MEDS ORDERED: 0.9 % Sodium Chloride 1,000 ML ONE (01:05)
--- NOTE | 2018-07-03 01:05 | Internal Med History&Physical ---
<Jesús Olmedo R - Last Filed: 07/03/18 00:58> Date of Encounter: 07/03/18 Time of Encounter: 00:10 Internal Medicine - H&P: HPI Chief complaint: Nausea, vomiting Admitted From: Emergency Dept Plans for Post Hospital Care: Home History of present illness: Mr. Esquivel is a 78 year old male with a past medical history significant for end-stage renal disease on M, W, F dialysis, MGUS, diabetes mellitus, h ypertension, COPD, CAD S/P CABG in generated 2017, and chronic urinary retention requiring indwelling [place] catheter. Presenting for evaluation of nausea, vomiting, confusion, and falls worsening over the past 2 days. Patient was seen and evaluated at the bedside, no family present during the time of my evaluation. History from patient is somewhat limited. Patient reports he missed his last 2 dialysis appointments secondary to bad weather resulting in inability to get himself to dialysis clinic. Associated shortness of breath, patient on home oxygen at baseline. Denies loss of consciousness, chest pain, dizziness, fevers, or chills. No suprapubic tenderness or flank pain. ED evaluation did reveal potassium of 8.0 and associated EKG changes. Patient was given albuterol, calcium gluconate, insulin and dextrose. Nephrology called from the ED for urgent dialysis. At the time of my evaluation patient was in dialysis and had recently begun dialyzing. Reported that his symptoms have moderately improved. No other acute complaints at this time. Past Med Surg Social Fam HX - Past Medical History Medical history: aortic aneurysm, arthritis, coronary artery disease, diabetes, hyperlipidemia, hypertension, renal disease Additional medical history: BLADDER NECK CONTRACTURE, SQUAMOUS CELL CANCER Psychiatric history: anxiety, depression - Past Surgical History Surgical History: angioplasty/stent, coronary bypass (CABG), orthopedic, other, other Additional surgical history: BACK SURGERY 1998, RIGHT HAND MIDDLE FINGER AMPUTATION - Social History Smoking Status: Never smoker Smokeless Tobacco Status: No Alcohol use: none Drug use: none - Family History Brother Family Member Ethnicity: Non- Living Status: Still Living Father Adopted: No Family Member Ethnicity: Non- Living Status: Hx Family Cardiac Disorders: Yes Mother Adopted: No Family Member Ethnicity: Non- Living Status: Hx Family Cancer: Yes Sister Adopted: No Family Member Ethnicity: Non- Living Status: Still Living Hx Family Cardiac Disorders: Yes Hx Family Respiratory Disorders: No Hx Family Cancer: Yes Hx Family GI Disorders: No Hx Family Endocrine Disorder: Yes Hx Family Neuromuscular Disorders: No Hx Family Neurologic Disorders: No Hx Family HEENT Disorders: No Hx Family Autoimmune Disorders: No Internal Medicine - H&P: Meds RX: Atorvastatin Calcium [Lipitor] 20 mg PO HS 01/15/18 [History] RX: Clopidogrel [Plavix] 75 mg PO DAILY 01/15/18 [History] RX: Furosemide [Lasix] 40 mg PO DAILY 01/15/18 [History] RX: Gabapentin [Neurontin] 300 mg PO TID 01/15/18 [History] RX: Venlafaxine XR (24 HR) [Effexor Xr] 150 mg PO DAILY 01/15/18 [History] RX: Trazodone HCl 100 mg PO HS PRN 01/31/18 [History] RX: Metoprolol XL (24 HR) Succ [Toprol Xl] 200 mg PO DAILY tab.er.24h 02/01/18 [Rx] RX: Azithromycin [Azithromycin 6-Tab Pack] 250 mg PO PER PKG DI 03/04/18 [History] RX: Losartan Potassium [Cozaar] 50 mg PO DAILY 03/04/18 [History] RX: MethylPREDNISolone [MethylPREDNISolone Dose Pack] 4 mg PO AD 03/04/18 [History] RX: hydrOXYzine HCl [Hydroxyzine HCl] 25 mg PO Q8H PRN 03/04/18 [History] GuaiFENesin/Codeine [Robitussin w/Codeine] 10 ml PO HS PRN 5 Days #60 liquid 03/10/18 [Rx] RX: Amoxicillin/Clavulanate [Augmentin] 500 mg PO BIDWM 3 Days #6 tablet 03/10/18 [Rx] RX: Benzonatate [Tessalon] 100 mg PO TID PRN #21 capsule 03/10/18 [Rx] RX: Budesonide/Formoterol 80/4.5 [Symbicort 80/4.5] 2 puff IH BIDR #1 inhaler 03/10/18 [Rx] RX: Buspirone HCl [Buspar] 10 mg PO TID #21 tablet 03/10/18 [Rx] RX: GuaiFENesin ER [Mucinex] 1,200 mg PO BID #14 tab 03/10/18 [Rx] RX: predniSONE [PredniSONE] See Taper PO DAILY 6 Days #9 tablet 03/10/18 [Rx] Allergy/AdvReac Type Severity Reaction Status Date / Time No Known Allergies Allergy Verified 01/31/18 10:47 All Systems PM: A 10-system review of systems was performed and is negative for pertinent findings except as documented above in the HPI. - Constitutional Constitutional: no chills, no fever(s) - EENT Eyes: no change in vision, no diplopia Nose, mouth and throat: no mouth pain, no neck pain - Cardiovascular Cardiovascular ROS IM: no chest pain, no edema, no lightheadedness, no palpitations - Respiratory Respiratory: dyspnea on exertion, no cough, no wheezing, no chest congestion - Gastrointestinal Gastrointestinal: abdominal pain, diarrhea, nausea, vomiting, no hematemesis, no hematochezia, no melena - Genitourinary Genitourinary ROS male: no dysuria, no flank pain, no hematuria - Musculoskeletal Musculoskeletal ROS IM: arthralgias, back pain, no numbness, no tingling - Integumentary Integumentary IM: no erythema, no rash - Neurological Neurological ROS: confusion, no focal weakness, no headache(s), no other visual disturbances - Psychiatric Psychiatric: confusion, no anxiety, no depression - Hematologic/Lymphatic Hematologic/Lymphatic: no easy bleeding, no easy bruising - Constitutional Vitals: Temp Pulse Resp BP Pulse Ox 97.4 F L 71 18 129/80 95 07/02/18 23:55 07/02/18 23:12 07/02/18 23:55 07/03/18 00:40 07/02/18 23:12 Exam: General: Seated upright and currently dialyzing, no apparent distress HEENT: Atraumatic, pupils PERRLA with EOMI, anicteric sclera, moist mucous membranes, edentulous Neck: Soft, nontender Cardiovascular: Heart was regular rate and rhythm, no murmurs noted Chest: Tunneled catheter present the right chest wall with dialysis tubing connected, Well-healed midline sternotomy incision, no restrictions to chest wa ll motion, no accessory muscle use Respiratory: Mild bibasilar crackles, otherwise clear to auscultation, no wheezing observed Abdomen: Obese, soft, nontender, nondistended, bowel sounds present and n ormoactive Extremities: Warm and dry, no swelling or edema, hemodialysis shunt present in the left cubital fossa with palpable thrill Neuro: Patient is alert and oriented to person, place, and situation. No focal deficits. Answers questions appropriately, however occasionally requiring redirection Psych: Appropriate mood and affect Internal Med - H&P Results - Labs CBC & Chem 7: 07/02/18 20:30 07/02/18 20:30 Labs: Short CBC 07/02/18 Range/Units 20:30 WBC 7.6 (4.3-11.1) K/mcL Hgb 12.2 L (12.9-16.9) g/dL Hct 38.5 (37.5-50.1) % Plt Count 100 L (140-400) K/mcL Neutrophils # 5.7 (1.6-8.9) K/mcL BMP 07/02/18 20:30 Sodium 134 L Potassium 8.0 H* Chloride 93 L Carbon Dioxide 20 L BUN 112 H Creatinine 12.91 H Glucose 86 Calcium 8.3 L Liver Function 07/02/18 Range/Units 20:30 Total Bilirubin 0.7 (0.3-1.0) mg/dL Direct Bilirubin 0.4 H (0.0-0.2) mg/dL AST 14 (13-39) Units/L ALT 19 (7-52) Units/L Alkaline Phosphatase 132 H (34-104) Units/L Albumin 3.6 (3.5-5.7) g/dL Urine 07/02/18 Range/Units 20:41 Urine Color Yellow (Yellow) Urine Clarity Turbid A (Clear) Urine pH 8.0 (5.0-8.0) pH Units Ur Specific [place] 1.019 (1.010-1.025) Urine Protein >=1000 H (Neg-Trace) mg/dL Urine Glucose (UA) Normal (Normal) mg/dL - Impressions ITS Impressions Cervical Spine CT 07/02/18 21:40 IMPRESSION: No acute intracranial abnormality. Multifocal small-vessel ischemic change No acute cervical spine fracture. Vertebral plana involving the T1 vertebral body with a soft tissue component. There is bone destruction extending into the lateral aspects of T1, right greater than left. This was present on old exam. D/ / Florentin Nicole / Florentin Nicole Interpreting Provider: Florentin Nicole Head CT 07/02/18 21:40 IMPRESSION: No acute intracranial abnormality. Multifocal small-vessel ischemic change No acute cervical spine fracture. Vertebral plana involving the T1 vertebral body with a soft tissue component. There is bone destruction extending into the lateral aspects of T1, right greater than left. This was present on old exam. D/ / Florentin Nicole / Florentin Nicole Interpreting Provider: Florentin Nicole - Assessment and plan (1) ESRD (end stage renal disease) Current Visit: Yes Status: Acute Assessment and plan: End-stage renal disease reportedly with Dr. Eaton, on M, W, F dialysis Recent missed appointment secondary to whether Hyperkalemic with associated EKG changes Plan: Patient has received albuterol, calcium gluconate, insulin and dextrose in the emergency department Currently undergoing urgent dialysis Cardiac monitoring Monitor fluid and electrolyte status following dialysis Nephrology consultation for ongoing dialysis management Social work consultation (2) Acute hyperkalemia Current Visit: Yes Status: Acute Assessment and plan: Hyperkalemic at 8.0 secondary to ESRD and missed dialysis appointments Plan: Temporarily stabilized in emergency department Currently undergoing urgent dialysis Continue cardiac, and electrolyte and fluid status monitoring as outlined above (3) Metabolic encephalopathy Current Visit: Yes Status: Acute Assessment and plan: Metabolic encephalopathy secondary to ESRD and missed dialysis appointments Patient is alert and oriented, however per family patient is not at his baseline Plan: Dialysis management of metabolic abnormalities We will avoid neuro-suppressive agents for the time being, may reintroduce is appropriate (4) Falls Current Visit: Yes Status: Acute Assessment and plan: Patient and reporting falls over the past few days Likely related to metabolic encephalopathy with associated generalized deconditioning Plan: CT of the head and neck without acute abnormality, chronic T1 compression fracture again noted PT/OT evaluation Correction of metabolic derangements as outlined above Falls precautions Qualifiers: Encounter type: initial encounter Qualified Code(s): W19.XXXA - Unspecified fall, initial encounter (5) Diabetes Current Visit: No Status: Chronic Assessment and plan: Tez-[id number]-tptqubuhh diabetic Plan: We will hold home glimepiride Diabetic/renal diet Sliding scale insulin with before meals at bedtime Accu-Cheks Qualifiers: Diabetes mellitus type: type 2 Diabetes mellitus ad terminal makeup operator insulin use: without [facility] use Diabetes mellitus complication status: with kidney complications Diabetes mellitus complication detail: with chronic kidney disease Chronic kidney disease stage: on chronic dialysis Qualified Code(s): E11.22 - Type 2 diabetes mellitus with diabetic chronic kidney disease; N18.6 - End stage renal disease; Z99.2 - Dependence on renal dialysis (6) CAD (coronary artery disease) Current Visit: No Status: Chronic Assessment and plan: Known CAD status post CABG in May 2017 Plan: continue home Plavix, statin, metoprolol, losartan Qualifiers: Coronary Disease-Associated Artery/Lesion type: bypass graft [place] vs. transplanted heart: [place] heart Associated angina: without angina Qualified Code(s): I25.810 - Atherosclerosis of coronary artery bypass graft(s) without angina pectoris (7) HTN (hypertension) Current Visit: No Status: Chronic Assessment and plan: Appears controlled continue home metoprolol and losartan Will need to be monitored closely given the patient may receive nyem-oc-knwa dialysis Qualifiers: Hypertension type: essential hypertension Qualified Code(s): I10 - Essential (primary) hypertension (8) Thrombocytopenia Current Visit: No Status: Chronic Assessment and plan: Thrombocytopenia with a platelet count of 100,000 at admission, this appears chronic in nature and is consistent with his previous values No evidence of acute or ongoing bleeding Continue with observation (9) DVT prophylaxis Current Visit: No Status: Acute Assessment and plan: Heparin 5000 units SQ 3 times a day - Time Spent With Patient Total time spent is greater than 50% in coordination of care (as documented) at patient's floor/unit and/or counseling patient: <Elizabeth Barnett - Last Filed: 07/03/18 04:10> Date of Encounter: 07/03/18 All Systems PM: A 10-system review of systems was performed and is negative for pertinent findings except as documented above in the HPI. - Constitutional Vitals: Temp Pulse Resp BP Pulse Ox 97.4 F L 71 18 129/57 95 07/02/18 23:55 07/02/18 23:12 07/02/18 23:55 07/03/18 01:40 07/02/18 23:12 Internal Med - H&P Results - Labs CBC & Chem 7: 07/02/18 20:30 07/02/18 20:30 Labs: Short CBC 07/02/18 Range/Units 20:30 WBC 7.6 (4.3-11.1) K/mcL Hgb 12.2 L (12.9-16.9) g/dL Hct 38.5 (37.5-50.1) % Plt Count 100 L (140-400) K/mcL Neutrophils # 5.7 (1.6-8.9) K/mcL BMP 07/02/18 20:30 Sodium 134 L Potassium 8.0 H* Chloride 93 L Carbon Dioxide 20 L BUN 112 H Creatinine 12.91 H Glucose 86 Calcium 8.3 L Liver Function 07/02/18 Range/Units 20:30 Total Bilirubin 0.7 (0.3-1.0) mg/dL Direct Bilirubin 0.4 H (0.0-0.2) mg/dL AST 14 (13-39) Units/L ALT 19 (7-52) Units/L Alkaline Phosphatase 132 H (34-104) Units/L Albumin 3.6 (3.5-5.7) g/dL Urine 07/02/18 Range/Units 20:41 Urine Color Yellow (Yellow) Urine Clarity Turbid A (Clear) Urine pH 8.0 (5.0-8.0) pH Units Ur Specific [place] 1.019 (1.010-1.025) Urine Protein >=1000 H (Neg-Trace) mg/dL Urine Glucose (UA) Normal (Normal) mg/dL - Impressions ITS Impressions Cervical Spine CT 07/02/18 21:40 IMPRESSION: No acute intracranial abnormality. Multifocal small-vessel ischemic change No acute cervical spine fracture. Vertebral plana involving the T1 vertebral body with a soft tissue component. There is bone destruction extending into the lateral aspects of T1, right greater than left. This was present on old exam. D/ / Florentin Nicole / Florentin Nicole Interpreting Provider: Florentin Nicole Head CT 07/02/18 21:40 IMPRESSION: No acute intracranial abnormality. Multifocal small-vessel ischemic change No acute cervical spine fracture. Vertebral plana involving the T1 vertebral body with a soft tissue component. There is bone destruction extending into the lateral aspects of T1, right greater than left. This was present on old exam. D/ / Florentin Nicole / Florentin Nicole Interpreting Provider: Florentin Nicole - Assessment and plan (1) CAD (coronary artery disease) Current Visit: No Status: Chronic Qualifiers: Coronary Disease-Associated Artery/Lesion type: bypass graft [place] vs. tr ansplanted heart: [place] heart Associated angina: without angina Qualified Code(s): I25.810 - Atherosclerosis of coronary artery bypass graft(s) without angina pectoris (2) Diabetes Current Visit: No Status: Chronic Qualifiers: Diabetes mellitus type: type 2 Diabetes mellitus ad terminal makeup operator insulin use: without ad terminal makeup operator use Diabetes mellitus complication status: with kidney complications Diabetes mellitus complication detail: with chronic kidney disease Chronic kidney disease stage: on chronic dialysis Qualified Code(s): E11.22 - Type 2 diabetes mellitus with diabetic chronic kidney disease; N18.6 - End stage renal disease; Z99.2 - Dependence on renal dialysis (3) HTN (hypertension) Current Visit: No Status: Chronic Qualifiers: Hypertension type: essential hypertension Qualified Code(s): I10 - Essential (primary) hypertension (4) DVT prophylaxis Current Visit: No Status: Acute (5) Thrombocytopenia Current Visit: No Status: Chronic (6) Acute hyperkalemia Current Visit: Yes Status: Acute (7) ESRD (end stage renal disease) Current Visit: Yes Status: Acute (8) Metabolic encephalopathy Current Visit: Yes Status: Acute (9) Falls Current Visit: Yes Status: Acute Qualifiers: Encounter type: initial encounter Qualified Code(s): W19.XXXA - Unspecified fall, initial encounter - Time Spent With Patient Total time spent is greater than 50% in coordination of care (as documented) at patient's floor/unit and/or counseling patient: - Attending Attestation I performed a history and physical exam of the patient on 07/02/18 and discussed management with the resident. I reviewed the resident's note and agree with the documented findings and plan of care. Ike Esquivel . is a 78 year old man with ESRD on HD who is brought in a state of confusion, disorientation and malaise. He admits to missing his last 2 dialysis sessions because of the bad weather over the past week. In the ER he was found to have a K of 8.0 with electrocardiographic changes. Nephrology was consulted and will undergo urgent dialysis. In the interim, temporizing measures were instituted. On my assessment he was conversant and responded appropriately. He says he drives himself to his HD sessions usually. Physical exam remarkable for a left arm fistula with reduced palpable thrill. Port on right upper chest seen. Warm, diaphoretic skin. Head CT was ordered because of reports of falls by his family. Will admit for observation. Monitor electrolytes closely. HD per nephrology. drying can worker consultation to assess for transportation assistance when needed. VERONICA FINN.
[2018-07-03 01:19] LABS: Hepatitis B Surface Antibody 622.81 mIU/mL
[2018-07-03 01:30] LABS: Hepatitis B Surface Antigen Nonreactive (Nonreactive)
[2018-07-03] MEDS: *HR* Heparin 5,000 UNIT/ML VIAL SQ SCH ×3 (06:38→21:09)
[2018-07-03] MEDS: *HR* Dextrose 50 % in Water (Syg) 50 ML SYRINGE IVP PRN ×2 (07:15→07:30)
[2018-07-03] MEDS ORDERED: D10% in Water 500 ML IVC ONE (07:43)
[2018-07-03] MEDS: D10% in Water 500 ML IVC SCH ×3 (07:45→22:44)
[2018-07-03 08:07] LABS: Basophils % 0.6 %; Eosinophils # 0.1 K/mcL (0.0-0.6); Eosinophils % 1.1 %; Hematocrit 37.1 % (37.5-50.1); Hemoglobin 12.1 g/dL (12.9-16.9); Immature Granulocytes % 0.4 % (0-4); Lymphocytes # 0.5 K/mcL (0.6-4.6); Lymphocytes % 9.9 %; Mean Corpuscular HGB Conc 32.6 g/dL (31.6-35.5); Mean Corpuscular Hemoglobin 29.6 pg (28.0-33.3); Mean Corpuscular Volume 90.7 fL (83.0-100.0); Mean Platelet Volume 10.4 fL (9.4-12.4); Monocytes # 0.6 K/mcL (0.0-1.3); Monocytes % 11.4 %; Neutrophils # 4.1 K/mcL (1.6-8.9); Red Blood Count 4.09 M/mcL (4.19-5.50); Segmented Neutrophils % 76.6 %
[2018-07-03 08:08] LABS: Platelet Count 76 K/mcL (140-400)
[2018-07-03] MEDS: Insulin LISPRO 300 UNITS/3 ML VIAL SQ SCH ×4 (08:34→20:36)
[2018-07-03 08:58] LABS: Calcium 7.8 mg/dL (8.6-10.3); Magnesium 2.5 mg/dL (1.6-2.6); Phosphorous 10.3 mg/dL (2.7-4.5); Potassium 5.8 mEq/L (3.5-5.1)
[2018-07-03] MEDS ORDERED: Gabapentin 300 MG CAPSULE PO SCH (09:00)
--- NOTE | 2018-07-03 10:08 | Nephrology Consult Note ---
Date of Encounter: 07/03/18 Time of Encounter: 10:20 Assessment and Plan (1) Acute hyperkalemia Current Visit: Yes Status: Acute Should stop the Losartan-potassium medication, which I've ordered. His hyperkalemia has significantly improved with stat dialysis on Wednesday night, but should still hold the ARB. On my exam, he is uremic and not able to swallow, so kayexalate is not safe to administer by mouth today. Of note, he his also hypoglycemic (the ER had ordered the insulin), and this is just another feature of uremia. I've ordered more dialysis today (Wednesday) for him, and called in the dialysis nurse. (2) ESRD (end stage renal disease) Current Visit: Yes Status: Chronic Next HD is planned for Wednesday, to resume his MWF schedule. (3) Metabolic encephalopathy Current Visit: Yes Status: Acute I suspect the gabapentin also contributed to his AMS -- not just missed dialysis/uremia. Hypoglycemia is also contributing. I reviewed his med list and happen to find the high dose Gabapentin (high for a dialysis patient). I have changed the dose to 300mg po qHS (of note only 300mg per day in ESRD pt's is considered the max dose), and will not have him receive anymore until tomorrow evening. Whenever he is discharged, his med list should reflect going foward this lower dose. (4) Hypoglycemia Current Visit: No Status: Acute agree with dextrose gtt. Should monitor daily weights. His [facility] listed dry weight is 99kg and so from the missed dialysis, he is very high above his dry weight. Will target fluid removal today and tomorrow as tolerated (no more than the max 13mL/kg/hr). (5) Hyperphosphatemia Current Visit: Yes Status: Acute acute on chronic, very elevated. Best treated with oral phos binders, but today he is too altered to swallow. History of Present Illness - Reason for Consult Consult date: 07/02/18 end stage renal disease, hyperkalemia Requesting physician: Malissa Humphrey - Chief Complaint Hyperkalemia in an ESRD patient - History of Present Illness Ike Esquivel is a 78 y/o WM with a pmh of T2DM, HTN, ESRD on HD MWF who presented without altered mental status and findings of hyperkalemia. Last night, the ER had paged me stating that he has missed his last two HD treatments due to snowy weather. He was found to be confused, and also very hyperkalemic. I made arrangements for urgent HD last night, which he tolerated well without hypotension. This AM, he was persistently hypoglycemic and still altered, and so he was not able to provide any subjective history to me. I reviewed his [place] [facility] dialysis notes, and see that his primary er physician is listed as Dr. Eaton, that he typically dialyzes 225min via a Rt Permacath and recently placed AVF for a goal target weight of 99, which was previously 97 kg a few weeks ago. Past Med Surg Social Fam HX - Past Medical History Medical history: aortic aneurysm, arthritis, coronary artery disease, diabetes, hyperlipidemia, hypertension, renal disease Additional medical history: BLADDER NECK CONTRACTURE, SQUAMOUS CELL CANCER Psychiatric history: anxiety, depression - Past Surgical History Surgical History: angioplasty/stent, coronary bypass (CABG), orthopedic, other, other Additional surgical history: BACK SURGERY 1998, RIGHT HAND MIDDLE FINGER AMPUTA TION - Social History Smoking Status: Never smoker Smokeless Tobacco Status: No Alcohol use: none Drug use: none - Family History Father Adopted: No Family Member Ethnicity: Non- Living Status: Hx Family Cardiac Disorders: Yes Mother Adopted: No Family Member Ethnicity: Non- Living Status: Hx Family Cancer: Yes Brother Family Member Ethnicity: Non- Living Status: Still Living Sister Adopted: No Family Member Ethnicity: Non- Living Status: Still Living Hx Family Cardiac Disorders: Yes Hx Family Respiratory Disorders: No Hx Family Cancer: Yes Hx Family GI Disorders: No Hx Family Endocrine Disorder: Yes Hx Family Neuromuscular Disorders: No Hx Family Neurologic Disorders: No Hx Family HEENT Disorders: No Hx Family Autoimmune Disorders: No Medications and Allergies Atorvastatin Calcium [Lipitor] 20 mg PO HS 01/15/18 [History] Clopidogrel [Plavix] 75 mg PO DAILY 01/15/18 [History] Furosemide [Lasix] 40 mg PO DAILY 01/15/18 [History] Gabapentin [Neurontin] 300 mg PO TID 01/15/18 [History] Venlafaxine XR (24 HR) [Effexor Xr] 150 mg PO DAILY 01/15/18 [History] Trazodone HCl 100 mg PO HS PRN 01/31/18 [History] Metoprolol XL (24 HR) Succ [Toprol Xl] 200 mg PO DAILY tab.er.24h 02/01/18 [Rx] Azithromycin [Azithromycin 6-Tab Pack] 250 mg PO PER PKG DI 03/04/18 [History] Losartan Potassium [Cozaar] 50 mg PO DAILY 03/04/18 [History] MethylPREDNISolone [MethylPREDNISolone Dose Pack] 4 mg PO AD 03/04/18 [History] hydrOXYzine HCl [Hydroxyzine HCl] 25 mg PO Q8H PRN 03/04/18 [History] Amoxicillin/Clavulanate [Augmentin] 500 mg PO BIDWM 3 Days #6 tablet 03/10/18 [Rx] Benzonatate [Tessalon] 100 mg PO TID PRN #21 capsule 03/10/18 [Rx] Budesonide/Formoterol 80/4.5 [Symbicort 80/4.5] 2 puff IH BIDR #1 inhaler 03/10/18 [Rx] Buspirone HCl [Buspar] 10 mg PO TID #21 tablet 03/10/18 [Rx] GuaiFENesin ER [Mucinex] 1,200 mg PO BID #14 tab 03/10/18 [Rx] GuaiFENesin/Codeine [Robitussin w/Codeine] 10 ml PO HS PRN 5 Days #60 liquid 03/10/18 [Rx] predniSONE [PredniSONE] See Taper PO DAILY 6 Days #9 tablet 03/10/18 [Rx] Calcium Acetate [Phos-LO] 667 mg PO TIDWM 07/03/18 [History] Glimepiride [Amaryl] 2 mg PO 0800 07/03/18 [History] Lisinopril [Zestril] 20 mg PO DAILY 07/03/18 [History] Allergy/AdvReac Type Severity Reaction Status Date / Time No Known Allergies Allergy Verified 01/31/18 10:47 Review of Systems ROS unobtainable: due to mental status Exam - Vital Signs Vital signs: Initial Vital Signs Temp Pulse Resp BP Pulse Ox 97.7 F 66 21 140/86 100 07/02/18 20:12 07/02/18 20:12 07/02/18 20:12 07/02/18 20:12 07/02/18 20:12 Vital Signs - Last 8 Hours Temp Pulse Resp BP Pulse Ox 07/03/18 08:15 57 16 109/59 100 07/03/18 07:28 93.9 F L 62 19 144/68 98 07/03/18 05:08 98.8 F 64 18 131/65 99 07/03/18 02:11 97.3 F L 18 103/73 Intake and Output 07/02/18 07/03/18 07/03/18 23:59 07:59 15:59 Intake Total 730.1 / 730.1 Output Total 2600 / 2600 Balance 730.1 / 730.1 -2600 / -2600 Intake: IV Fluids 130.1 / 130.1 HumuLIN R 10 UNIT In Normal 10.1 / 10.1 Saline Flush 10 ML @ 1212 mls/ hr IV ONCE ONE Rx#:[id number] Rocephin 1,000 MG In Water for 10 / 10 inj. (sterile) 10 ML @ 600 mls/ hr IVP ONCE ONE Rx#:[id number] Calcium Gluconate 1,000 MG In 0 110 / 110 .9 % Sodium Chloride 100 ML @ 220 mls/hr IVPB ONCE ONE Rx#: [id number] Intake, Rinseback and Flushes 600 / 600 Output: Total Dialysis (HD) Output 2600 / 2600 Other: Weight 107.32 kg Blood Glucose* 90 151 209 Hemodialysis Net Fluid Removed 0 2000 (mL) - General Appearance General appearance: well-developed, appears started age, moderate distress EENT: ATNC, mucous membranes dry Neck: supple Respiratory: clear Cardiology: edema, regular rate, regular rhythm, normal S1, normal S2 - Dialysis Access Dialysis Vascular Access: Arteriovenous Fistula (LUE) thrill: Yes bruit: Yes Additional Comments: Right sided Permacath with dressing C/D/I Gastrointestinal: normoactive bowel sounds, no tenderness, no guarding Integumentary: warm and dry Neurologic: confused, disoriented Additional Comments: too altered to fully assess neuro exam Musculoskeletal: no cyanosis, no clubbing Additional Comments: too altered to follow commands Results - Lab Results 07/03/18 07:57 07/03/18 18:15 Most recent lab results Calcium 7.8 mg/dL (8.6-10.3) L 07/03/18 07:57 Phosphorus 10.3 mg/dL (2.7-4.5) H 07/03/18 07:57 Magnesium 2.5 mg/dL (1.6-2.6) 07/03/18 07:57 I reviewed his labs, vitals, med lists, progress notes, imaging and also re viewed his outside dialysis notes in the [facility] EHR called [facility]. Consult Discharge Plan - Plan Referrals: NONE,PCP [Primary Care Provider] -
[2018-07-03] MEDS ORDERED: 0.9 % Sodium Chloride 250 ML IVC PRN (11:08)
[2018-07-03] MEDS: Venlafaxine XR (24 HR) 150 MG CAP.ER.24H PO SCH (11:10)
[2018-07-03] MEDS: Metoprolol XL (24 HR) Succ 50 MG TAB.ER.24H PO SCH (11:11)
[2018-07-03] MEDS ORDERED: 0.9 % Sodium Chloride 1,000 ML PRIME SCH (11:15)
[2018-07-03] MEDS ORDERED: 0.9 % Sodium Chloride 2,000 ML ONE (12:40)
[2018-07-03] MEDS ORDERED: *HR* Heparin 10,000 UNIT/10 ML VIAL IV PRN ×2 (12:58)
[2018-07-03] MEDS: Hydrocortisone Sodium Succ 100 MG/2 ML VIAL IVP SCH (18:06)
--- NOTE | 2018-07-03 21:00 | Internal Med Progress Note ---
Hospitalist Progress Note - Encounter Date of Encounter: 07/03/18 Time of Encounter: 19:00 - Subjective Interval History: SUBJECTIVE: The patient is end-stage renal disease on hemodialysis. He skipped 2 last hemodialysis treatments. Subsequently, he developed nausea, vomiting and confusion. He was found to have severe hypercalcemia with potassium of 8.0 in the emergency room. Associated with glucose of 90. We found this patient unresponsive today morning. His glucose was only 27. After emergency treatments with D50 and glucagon he was connected to D10 IV infusion. He is glucose was 151 at 7:56 AM. Then, he became hypoglycemic again around 4:30 PM. We increased infusion rate for D10. We gave him 1 extra dose of IV glucagon. I started him on scheduled IV Solu-Cortef. The patient was talking to me when I met him for the second time in the evening. Nausea and vomiting subsided. Denies chest pain denies abdominal pain. He got hemodialysis today. OBJECTIVE: Skin: Free of rash and discoloration. ENMT: Oral/pharyngeal mucosa is normal in appearance. Eyes: Sclera is white. There is no discharge from eyes. Respiratory: Normal breath sounds; no crackles or wheezes. CV: Heart is regular; no gallop or murmur. GI: Abdomen is soft and not tender. There is no palpable mass or visceromegaly. Neuro: There is no focal deficits. ADDITIONAL DATA: CBC shows hemoglobin of 12.1 with normal WBC. Platelet count is 76,000; 100,000 at admission. Potassium is 5.8; 8.0 at admission. Creatinine is 9.13end-stage renal disease. ASSESSMENT AND PLAN: Type 2 diabetes mellitus with severe hypoglycemia. He was getting Amaryl at home. He got 10 units of IV insulin in the emergency department. I will keep him on D10 IV infusion together with scheduled IV Solu-Cortef. I will monitor his fingersticks for glucose closely. The patient definitely had metabolic encephalopathy at admission. Resulting from not getting his hemodialysis. Acute hyperkalemia. Resolved with emergency treatments in the emergency department/hemodialysis. He has underlying end-stage renal disease. We appreciate help from nephrology. Thrombocytopenia. I think, that it should get better with all the treatments mentioned above. I will monitor this closely. His other problems seem to be stable/under control. - Exam Vitals: Temp Pulse Resp BP Pulse Ox 97.8 F 69 16 125/76 98 07/03/18 17:05 07/03/18 10:43 07/03/18 17:05 07/03/18 17:05 07/03/18 10:43 Exam: xx - Assessment and Plan (1) Type 2 diabetes mellitus Current Visit: Yes Status: Acute (2) Metabolic encephalopathy Current Visit: Yes Status: Acute (3) Acute hyperkalemia Current Visit: Yes Status: Acute (4) ESRD (end stage renal disease) Current Visit: Yes Status: Chronic (5) Thrombocytopenia Current Visit: No Status: Chronic (6) CAD (coronary artery disease) Current Visit: No Status: Chronic (7) HTN (hypertension) Current Visit: No Status: Chronic (8) Falls Current Visit: Yes Status: Acute - Time Spent with Patient Total time spent is greater than 50% in coordination of care (as documented) at patient's floor/unit and/or counseling patient: 25 - 35 minutes Plan of Care Discussed with: patient Internal Medicine: Result - Labs CBC & Chem 7: 07/03/18 07:57 07/03/18 18:15 Labs: Short CBC 07/03/18 Range/Units 07:57 WBC 5.3 (4.3-11.1) K/mcL Hgb 12.1 L (12.9-16.9) g/dL Hct 37.1 L (37.5-50.1) % Plt Count 76 L (140-400) K/mcL Neutrophils # 4.1 (1.6-8.9) K/mcL BMP 07/02/18 07/03/18 07/03/18 20:30 07:57 18:15 Sodium 134 L 135 L Potassium 8.0 H* 5.8 H D Chloride 93 L 95 L Carbon Dioxide 20 L 25 BUN 112 H 71 H Creatinine 12.91 H 9.13 H Glucose 86 110 H 79 Calcium 8.3 L 7.8 L Liver Function 07/02/18 Range/Units 20:30 Total Bilirubin 0.7 (0.3-1.0) mg/dL Direct Bilirubin 0.4 H (0.0-0.2) mg/dL AST 14 (13-39) Units/L ALT 19 (7-52) Units/L Alkaline Phosphatase 132 H (34-104) Units/L Albumin 3.6 (3.5-5.7) g/dL - Impressions Impressions Cervical Spine CT 07/02/18 21:40 IMPRESSION: No acute intracranial abnormality. Multifocal small-vessel ischemic change No acute cervical spine fracture. Vertebral plana involving the T1 vertebral body with a soft tissue component. There is bone destruction extending into the lateral aspects of T1, right greater than left. This was present on old exam. D/ / Florentin Nicole / Florentin Nicole Interpreting Provider: Florentin Nicole Head CT 07/02/18 21:40 IMPRESSION: No acute intracranial abnormality. Multifocal small-vessel ischemic change No acute cervical spine fracture. Vertebral plana involving the T1 vertebral body with a soft tissue component. There is bone destruction extending into the lateral aspects of T1, right greater than left. This was present on old exam. D/ / Florentin Nicole / Florentin Nicole Interpreting Provider: Florentin Nicole Consult Discharge Plan - Plan Referrals: NONE,PCP [Primary Care Provider] - _ (1) Type 2 diabetes mellitus Qualifiers: Diabetes mellitus complication status: with hypoglycemia Diabetes mellitus complication detail: with coma (6) CAD (coronary artery disease) Qualifiers: Coronary Disease-Associated Artery/Lesion type: bypass graft [place] vs. transplanted heart: [place] heart Associated angina: without angina Qualified Code(s): I25.810 - Atherosclerosis of coronary artery bypass graft(s) without angina pectoris (7) HTN (hypertension) Qualifiers: Hypertension type: essential hypertension Qualified Code(s): I10 - Essential (primary) hypertension (8) Falls Qualifiers: Encounter type: initial encounter Qualified Code(s): W19.XXXA - Unspecified fall, initial encounter
--- NOTE | 2018-07-03 23:28 | Event Note ---
Date of Encounter: 07/03/18 Time of Encounter: 23:01 Alerted by patient's nurse to call, RN that patient was currently on D10 and 100 mL's per hour and BG was now 159. Concerned about how to adjust D10 rate. BG checks currently before meals at bedtime and computer. Changed to every hour. Communication order placed to check BG every hour and notify provider so rated D10 continue adjusted up or down when necessary. Nurse instructed to change current rated D10 from 100 mL's per hour to 50 mL's per hour and keep me updated on patient's BG checks hourly. Patient also reporting cough so Mucinex ordered when necessary. Nurse instructed to continue monitoring patient closely and notify me immediately of any adverse changes. Alerted by pts. nurse at 01:13 the patient was requesting his home dose of trazodone 100 mg. Discussed medication with Pharmacy due to patient's current renal dysfunction and GFR of 6. Informed by Pharmacy that there is no renal dosing for trazodone, so home dose continued.
[2018-07-04] MEDS: Hydrocortisone Sodium Succ 100 MG/2 ML VIAL IVP SCH ×4 (00:34→16:45)
[2018-07-04] MEDS: traZODone 50 MG TABLET PO PRN ×2 (01:30→22:12)
[2018-07-04] MEDS: *HR* Heparin 5,000 UNIT/ML VIAL SQ SCH ×3 (06:21→22:42)
[2018-07-04 06:41] LABS: Lymphocytes % 9.8 %; Mean Corpuscular HGB Conc 32.1 g/dL (31.6-35.5)
[2018-07-04 06:42] LABS: Hematocrit 35.5 % (37.5-50.1); Hemoglobin 11.4 g/dL (12.9-16.9); Immature Granulocytes % 0.3 % (0-4); Immature Platelets 2.4 % (1.1-6.1); Lymphocytes # 0.6 K/mcL (0.6-4.6); Mean Corpuscular Hemoglobin 28.9 pg (28.0-33.3); Mean Corpuscular Volume 90.1 fL (83.0-100.0); Mean Platelet Volume 10.3 fL (9.4-12.4); Monocytes # 0.3 K/mcL (0.0-1.3); Monocytes % 5.1 %; Neutrophils # 5.2 K/mcL (1.6-8.9); Platelet Count 110 K/mcL (140-400); Red Blood Count 3.94 M/mcL (4.19-5.50); Red Cell Distribution Width 14.7 % (11.5-14.5); Segmented Neutrophils % 84.8 %
[2018-07-04 06:58] LABS: Calcium 7.9 mg/dL (8.6-10.3); Potassium 5.9 mEq/L (3.5-5.1)
[2018-07-04] MEDS ORDERED: 0.9 % Sodium Chloride 250 ML IVC PRN (07:27)
[2018-07-04] MEDS ORDERED: 0.9 % Sodium Chloride 2,000 ML ONE (07:59)
[2018-07-04] MEDS: Insulin LISPRO 300 UNITS/3 ML VIAL SQ SCH ×4 (08:18→22:03)
[2018-07-04] MEDS: Venlafaxine XR (24 HR) 150 MG CAP.ER.24H PO SCH (08:18)
[2018-07-04] MEDS: *HR* HYDROcodone/Acet 5/325 mg TABLET PO PRN ×3 (08:30→22:11)
--- NOTE | 2018-07-04 09:59 | Nephrology Progress Note ---
Addendum entered and electronically signed by Nigel Donis DO 07/05/18 07:05: I have personally performed a face to face evaluation on this patient. I have reviewed and agree with the care plan. History and Exam by me shows: ESRD and due for resuming his MWF schedule today. I've lengthened his HD to 4 hr to better target the hyperkalemia and water weight, which is still above his prior dry weight of 99kg. Resuming Phos binders. More alert on exam today. He said his AVF has been used just 1-2x in the outpt unit, but since this is still so new and delicate, I recommend using the Permacath. There is literature that has shown that ESRD pt's outside dialysis RNs who have learned where best to canulate a pt's access should keep continue to access it (which minimizes risks of infiltration and hematoma). Original Note: Date of Encounter: 07/04/18 Time of Encounter: 09:57 - Assessment and Plan (1) ESRD (end stage renal disease) Current Visit: Yes Status: Chronic Current regimen is Wednesday at [facility]. HD in progress for today. Renal diet Renal vitamins Strict I/O Avoid nephrotoxins and renal dose all medications. (2) Hypoglycemia Current Visit: No Status: Acute Continues to be on D10 drip. Last glucose was 182. (3) Acute hyperkalemia Current Visit: Yes Status: Acute Losartan has been DC'd. Potassium is 5.9 today, HD and progress. Recommend renal diet. (4) Metabolic encephalopathy Current Visit: Yes Status: Acute 2 missed dialysis sessions last week along with home medications could be the cause, it appears resolving, is alert today. Per primary. (5) Hyperphosphatemia Current Visit: Yes Status: Acute acute on chronic, very elevated. Renvela ordered today. Subjective Principal diagnosis: disorientation Interval history: Patient seen and examined and HD, tolerating well. Denies chest pain admits to shortness of breath is currently on oxygen via nasal cannula. Denies nausea, vomiting, diarrhea. No acute events overnight. Objective - Vital Signs Vital signs: Vital Signs Temp Pulse Resp BP Pulse Ox 07/04/18 07:11 98.6 F 90 17 158/66 89 07/04/18 05:36 97.7 F 81 17 162/73 100 07/03/18 23:49 100 F H 93 16 156/81 95 07/03/18 17:05 97.8 F 16 125/76 07/03/18 16:50 135/63 07/03/18 16:35 127/84 07/03/18 16:20 127/71 07/03/18 16:05 128/75 07/03/18 15:50 129/59 07/03/18 15:35 143/77 07/03/18 15:20 141/82 07/03/18 15:05 122/75 07/03/18 14:50 131/61 07/03/18 14:35 116/56 07/03/18 14:20 113/62 07/03/18 14:05 110/63 07/03/18 13:50 108/60 07/03/18 13:35 103/60 07/03/18 13:20 98.6 F 18 101/84 07/03/18 10:43 98.3 F 69 19 114/60 98 Intake and Output 07/03/18 07/04/18 07/04/18 23:59 07:59 15:59 Intake Total 1056 / 1056 120 / 120 Output Total 4100 / 4100 Balance -3044 / -3044 120 / 120 Intake: IV Fluids 1056 / 1056 Dextrose 10% Water 500 Ml Ivbag 1056 / 1056 500 ML @ 50 mls/hr IVC .Q10H [facility] Rx#:[id number] Oral 120 / 120 Output: Urine 0 / 0 Total Dialysis (HD) Output 4100 / 4100 Other: Meal Breakfast Percent of Meal Consumed 100% Blood Glucose* 167 167 170 Hemodialysis Net Fluid Removed 3500 (mL) - General Appearance General appearance: Present: well-developed, well-nourished EENT: Present: ATNC, hearing intact, vision intact Neck: Present: supple Respiratory: Present: clear Cardiology: Present: no edema, normal S1, normal S2 Dialysis Vascular Access: Venous Catheter (Dressing clean, dry, intact.) thrill: Yes bruit: Yes Gastrointestinal: Present: normoactive bowel sounds, no tenderness, no guarding Integumentary: Present: no rash, warm and dry Neurologic: Present: alert and oriented x3 Musculoskeletal: Present: no deformities, no erythema Psychiatric: Present: mood/affect appropriate, cooperative - Lab 07/04/18 05:38 07/04/18 05:38 Most recent lab results Calcium 7.9 mg/dL (8.6-10.3) L 07/04/18 05:38 Phosphorus 10.3 mg/dL (2.7-4.5) H 07/03/18 07:57 Magnesium 2.5 mg/dL (1.6-2.6) 07/03/18 07:57 Consult Discharge Plan - Plan Referrals: NONE,PCP [Primary Care Provider] -
[2018-07-04] MEDS: Calcium Acetate 667 MG CAPSULE PO SCH ×2 (13:16→16:45)
[2018-07-04] MEDS: Metoprolol XL (24 HR) Succ 50 MG TAB.ER.24H PO SCH (13:17)
[2018-07-04] MEDS: hydrOXYzine pamoate 25 MG CAPSULE PO PRN (18:20)
[2018-07-04] MEDS: Gabapentin 300 MG CAPSULE PO SCH (22:11)
--- NOTE | 2018-07-05 03:19 | Internal Med Progress Note ---
Hospitalist Progress Note - Encounter Date of Encounter: 07/04/18 Time of Encounter: 19:00 - Subjective Interval History: SUBJECTIVE: He feels better today. He talked to me without difficulties. I did not find him to have anything wrong with his thought process. He got his second hemodialysis today morning. Denies chest pain. Denies difficulty breathing. He continues to use supplemental oxygen at 5 L/min nasal cannula. Denies abdominal pain, nausea and vomiting. He is ESRD. He has not started ambulation yet. OBJECTIVE: Skin: Free of rash and discoloration. ENMT: Oral/pharyngeal mucosa is normal in appearance. Eyes: Sclera is white. There is no discharge from eyes. Respiratory: Normal breath sounds; no crackles or wheezes. CV: Heart is regular; no gallop or murmur. GI: Abdomen is soft and not tender. There is no palpable mass or visceromegaly. Neuro: There is no focal deficits. ADDITIONAL DATA: CBC shows hemoglobin of 11.4 with normal WBC. Platelet count is 110,000; 76,000 yesterday. Potassium is 5.9; 5.8 yesterday. With sodium of 130. And normal chloride/bicarb. Fingersticks for glucose from today are 167 and 163. ASSESSMENT AND PLAN: Type 2 diabetes mellitus with severe hypoglycemia. He was getting Amaryl at home. He got 10 units of IV insulin in the emergency department. Better. I will discontinue D10 infusion. I will decrease his dose of Solu-Cortef by 50%. To continue when necessary Humalog. The patient definitely had metabolic encephalopathy at admission. Resulting from skipping (bad weather) he is hemodialysis on 2 occasions. Acute hyperkalemia. Resolved with emergency treatments in the emergency department/hemodialysis. He has underlying end-stage renal disease. We appreciate help from nephrology. Thrombocytopenia. I think, that it should get better with all the treatments mentioned above. I will monitor this closely. His other problems seem to be stable/under control. - Exam Vitals: Temp Pulse Resp BP Pulse Ox 99.8 F H 74 17 135/71 98 07/04/18 23:10 07/04/18 23:10 07/04/18 23:10 07/04/18 23:10 07/04/18 23:10 Exam: xx - Assessment and Plan (1) Type 2 diabetes mellitus Current Visit: Yes Status: Acute (2) Metabolic encephalopathy Current Visit: Yes Status: Acute (3) Acute hyperkalemia Current Visit: Yes Status: Acute (4) ESRD (end stage renal disease) Current Visit: Yes Status: Chronic (5) Thrombocytopenia Current Visit: No Status: Chronic (6) CAD (coronary artery disease) Current Visit: No Status: Chronic (7) HTN (hypertension) Current Visit: No Status: Chronic (8) Falls Current Visit: Yes Status: Acute - Time Spent with Patient Total time spent is greater than 50% in coordination of care (as documented) at patient's floor/unit and/or counseling patient: 25 - 35 minutes Plan of Care Discussed with: patient Internal Medicine: Result - Labs CBC & Chem 7: 07/04/18 05:38 07/04/18 05:38 Labs: Short CBC 07/04/18 Range/Units 05:38 WBC 6.1 (4.3-11.1) K/mcL Hgb 11.4 L (12.9-16.9) g/dL Hct 35.5 L (37.5-50.1) % Plt Count 110 L (140-400) K/mcL Neutrophils # 5.2 (1.6-8.9) K/mcL BMP 07/04/18 05:38 Sodium 130 L Potassium 5.9 H Chloride 92 L Carbon Dioxide 25 BUN 46 H Creatinine 6.42 H Glucose 166 H Calcium 7.9 L Consult Discharge Plan - Plan Referrals: NONE,PCP [Primary Care Provider] - (1) Type 2 diabetes mellitus Qualifiers: Diabetes mellitus complication status: with hypoglycemia Diabetes mellitus complication detail: with coma (6) CAD (coronary artery disease) Qualifiers: Coronary Disease-Associated Artery/Lesion type: bypass graft [place] vs. transplanted heart: [place] heart Associated angina: without angina Qualified Code(s): I25.810 - Atherosclerosis of coronary artery bypass graft(s) without angina pectoris (7) HTN (hypertension) Qualifiers: Hypertension type: essential hypertension Qualified Code(s): I10 - Essential (primary) hypertension (8) Falls Qualifiers: Encounter type: initial encounter Qualified Code(s): W19.XXXA - Unspecified fall, initial encounter
[2018-07-05] MEDS: *HR* Heparin 5,000 UNIT/ML VIAL SQ SCH ×3 (06:37→21:50)
[2018-07-05] MEDS: Hydrocortisone Sodium Succ 100 MG/2 ML VIAL IVP SCH ×2 (06:37→16:56)
[2018-07-05 08:59] LABS: Hematocrit 41.4 % (37.5-50.1); Mean Corpuscular HGB Conc 31.6 g/dL (31.6-35.5); Mean Corpuscular Volume 91.6 fL (83.0-100.0); Mean Platelet Volume 9.9 fL (9.4-12.4); Platelet Count 145 K/mcL (140-400); Red Blood Count 4.52 M/mcL (4.19-5.50); Red Cell Distribution Width 14.6 % (11.5-14.5)
[2018-07-05 09:00] LABS: Hemoglobin 13.1 g/dL (12.9-16.9)
[2018-07-05 09:18] LABS: Potassium 4.9 mEq/L (3.5-5.1)
--- NOTE | 2018-07-05 09:45 | Nephrology Progress Note ---
Addendum entered and electronically signed by Nigel Donis DO 07/06/18 18:03: I have personally performed a face to face evaluation on this patient. I have reviewed and agree with the care plan. History and Exam by me shows: Recommend dialysis on his routine day MWF. K+ has improved. To follow a renal diet. Thank you. Original Note: Date of Encounter: 07/05/18 Time of Encounter: 09:42 - Assessment and Plan (1) ESRD (end stage renal disease) Current Visit: Yes Status: Chronic Current regimen is Wednesday at [facility]. HD completed yesterday, plan for HD tomorrow if still inpatient. If he is discharged he will go to outpatient dialysis at his regular time. Renal diet Renal vitamins Strict I/O Avoid nephrotoxins and renal dose all medications. (2) Hypoglycemia Current Visit: No Status: Acute Continues to be on D10 drip. Last glucose was 114. D10 drip was stopped. (3) Acute hyperkalemia Current Visit: Yes Status: Acute Resume Losartan Potassium is 4.9 today, stable. Recommend renal diet. (4) Metabolic encephalopathy Current Visit: Yes Status: Acute Resolved. (5) Hyperphosphatemia Current Visit: Yes Status: Acute Continue Renvela outpatient. Subjective Principal diagnosis: disorientation Interval history: Patient seen and examined is overall feeling well. Denies nausea, vomiting or diarrhea. Denies chest pain or shortness breath. No acute events overnight. States he is ready to go home today. Objective - Vital Signs Vital signs: Vital Signs Temp Pulse Resp BP Pulse Ox 07/05/18 03:10 97.5 F L 72 17 138/77 93 07/04/18 23:10 99.8 F H 74 17 135/71 98 07/04/18 19:35 99.8 F H 77 17 167/76 96 07/04/18 16:03 74 139/51 07/04/18 13:19 97.5 F L 18 133/81 07/04/18 13:00 132/74 07/04/18 12:45 127/73 07/04/18 12:30 124/73 07/04/18 12:15 132/79 07/04/18 12:00 115/72 07/04/18 11:45 118/55 07/04/18 11:30 141/70 02/04/19 11:15 142/70 07/04/18 11:00 136/79 07/04/18 10:45 141/78 07/04/18 10:30 142/81 07/04/18 10:15 156/85 07/04/18 10:00 161/85 07/04/18 09:45 177/103 Intake and Output 07/04/18 07/05/18 07/05/18 23:59 07:59 15:59 Intake Total 200 / 200 Balance 200 / 200 Intake: Oral 200 / 200 Other: Meal Breakfast Percent of Meal Consumed 100% Blood Glucose* 157 114 - General Appearance General appearance: Present: well-developed, well-nourished EENT: Present: ATNC, hearing intact, vision intact Neck: Present: supple Respiratory: Present: clear Cardiology: Present: no edema, normal S1, normal S2 Dialysis Vascular Access: Venous Catheter (Dressing clean, dry and intact.) Gastrointestinal: Present: normoactive bowel sounds, no tenderness, no guarding Integumentary: Present: no rash, warm and dry Neurologic: Present: alert and oriented x3 Musculoskeletal: Present: no deformities, no erythema Psychiatric: Present: mood/affect appropriate, cooperative - Lab 07/05/18 08:15 07/05/18 08:15 Most recent lab results Calcium 9.0 mg/dL (8.6-10.3) 07/05/18 08:15 Phosphorus 10.3 mg/dL (2.7-4.5) H 07/03/18 07:57 Magnesium 2.5 mg/dL (1.6-2.6) 07/03/18 07:57 Consult Discharge Plan - Plan Referrals: NONE,PCP [Primary Care Provider] -
[2018-07-05] MEDS: Calcium Acetate 667 MG CAPSULE PO SCH ×3 (09:52→16:55)
[2018-07-05] MEDS: Metoprolol XL (24 HR) Succ 50 MG TAB.ER.24H PO SCH (09:52)
[2018-07-05] MEDS: *HR* HYDROcodone/Acet 5/325 mg TABLET PO PRN ×3 (09:53→22:29)
[2018-07-05] MEDS: Venlafaxine XR (24 HR) 150 MG CAP.ER.24H PO SCH (09:53)
[2018-07-05] MEDS: Insulin LISPRO 300 UNITS/3 ML VIAL SQ SCH ×4 (10:07→22:30)
[2018-07-05] MEDS: hydrOXYzine pamoate 25 MG CAPSULE PO PRN (16:55)
[2018-07-05] MEDS: Gabapentin 300 MG CAPSULE PO SCH (21:49)
[2018-07-05] MEDS: traZODone 50 MG TABLET PO PRN (22:29)
--- NOTE | 2018-07-05 23:05 | Electrocardiograph Report ---
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
--- NOTE | 2018-07-06 03:17 | Internal Med Progress Note ---
Hospitalist Progress Note - Encounter Date of Encounter: 07/05/18 Time of Encounter: 19:00 - Subjective Interval History: SUBJECTIVE: The patient feels pretty good today. He walks some; with assistance. Denies chest pain. Denies difficulty breathing; getting supplemental oxygen at 4 L/min nasal cannula.Denies coughing and wheezing. Denies abdominal pain, nausea and vomiting. He is ESRD. OBJECTIVE: Skin: Free of rash and discoloration. ENMT: Oral/pharyngeal mucosa is normal in appearance. Eyes: Sclera is white. There is no discharge from eyes. Respiratory: Normal breath sounds; no crackles or wheezes. CV: Heart is regular; no gallop or murmur. GI: Abdomen is soft and not tender. There is no palpable mass or visceromegaly. Neuro: There is no focal deficits. ADDITIONAL DATA: Hemoglobin is 13.1 with a WBC of 11.3 thousand and platelet count of 145,000 (110,000 yesterday). Electrolytes are normal; his potassium was 8.0 at admission. Fingersticks for glucose from today are 114, 205 and 176. ASSESSMENT AND PLAN: Type 2 diabetes mellitus with severe hypoglycemia. He was getting Amaryl at home. He got 10 units of IV insulin in the emergency department. Better. We discontinued her D10 IV infusion yesterday. We will stop his IV Solu-Cortef today. I feel, that he will be fine with diabetic diet only. We may give him Prandin at discharge. His metabolic encephalopathic observed in the emergency room at admission subsided with hemodialysis. Acute hyperkalemia. Resolved with hemodialysis. Thrombocytopenia. Better today. Something to watch in the future. His other problems seem to be stable/under control. Disposition: He seems to be pretty stable for discharge either home or to ECF. The decision will be made sometime tomorrow with help from physical therapy. - Exam Vitals: Temp Pulse Resp BP Pulse Ox 98.5 F 75 18 173/74 96 07/05/18 23:07 07/05/18 23:07 07/05/18 23:07 07/05/18 23:07 07/05/18 23:07 Exam: xx - Assessment and Plan (1) Type 2 diabetes mellitus Current Visit: Yes Status: Acute (2) Metabolic encephalopathy Current Visit: Yes Status: Acute (3) Acute hyperkalemia Current Visit: Yes Status: Acute (4) ESRD (end stage renal disease) Current Visit: Yes Status: Chronic (5) Thrombocytopenia Current Visit: No Status: Chronic (6) CAD (coronary artery disease) Current Visit: No Status: Chronic (7) HTN (hypertension) Current Visit: No Status: Chronic (8) Falls Current Visit: Yes Status: Acute - Time Spent with Patient Total time spent is greater than 50% in coordination of care (as documented) at patient's floor/unit and/or counseling patient: 25 - 35 minutes Plan of Care Discussed with: patient Internal Medicine: Result - Labs CBC & Chem 7: 07/05/18 08:15 07/05/18 08:15 Labs: Short CBC 07/05/18 Range/Units 08:15 WBC 11.3 H D (4.3-11.1) K/mcL Hgb 13.1 D (12.9-16.9) g/dL Hct 41.4 (37.5-50.1) % Plt Count 145 (140-400) K/mcL BMP 07/05/18 08:15 Sodium 134 L Potassium 4.9 Chloride 94 L Carbon Dioxide 30 H BUN 51 H Creatinine 5.59 H Glucose 136 H Calcium 9.0 Consult Discharge Plan - Plan Referrals: NONE,PCP [Primary Care Provider] - (1) Type 2 diabetes mellitus Qualifiers: Diabetes mellitus complication status: with hypoglycemia Diabetes mellitus c omplication detail: with coma (6) CAD (coronary artery disease) Qualifiers: Coronary Disease-Associated Artery/Lesion type: bypass graft [place] vs. transplanted heart: [place] heart Associated angina: without angina Qualified Code(s): I25.810 - Atherosclerosis of coronary artery bypass graft(s) without angina pectoris (7) HTN (hypertension) Qualifiers: Hypertension type: essential hypertension Qualified Code(s): I10 - Essential (primary) hypertension (8) Falls Qualifiers: Encounter type: initial encounter Qualified Code(s): W19.XXXA - Unspecified fall, initial encounter
[2018-07-06] MEDS: *HR* Heparin 5,000 UNIT/ML VIAL SQ SCH ×2 (05:59→13:12)
[2018-07-06] MEDS: *HR* HYDROcodone/Acet 5/325 mg TABLET PO PRN ×2 (06:01→12:07)
[2018-07-06 06:40] LABS: Hematocrit 37.7 % (37.5-50.1); Hemoglobin 12.1 g/dL (12.9-16.9); Mean Corpuscular HGB Conc 32.1 g/dL (31.6-35.5); Mean Corpuscular Hemoglobin 28.7 pg (28.0-33.3); Mean Corpuscular Volume 89.5 fL (83.0-100.0); Mean Platelet Volume 9.9 fL (9.4-12.4); Platelet Count 117 K/mcL (140-400); Red Blood Count 4.21 M/mcL (4.19-5.50); Red Cell Distribution Width 14.3 % (11.5-14.5)
[2018-07-06 07:02] LABS: Calcium 8.5 mg/dL (8.6-10.3); Potassium 5.3 mEq/L (3.5-5.1)
[2018-07-06] MEDS: Insulin LISPRO 300 UNITS/3 ML VIAL SQ SCH ×2 (07:48→12:05)
[2018-07-06] MEDS: hydrOXYzine pamoate 25 MG CAPSULE PO PRN (08:01)
[2018-07-06] MEDS: Venlafaxine XR (24 HR) 150 MG CAP.ER.24H PO SCH (08:02)
[2018-07-06] MEDS: Calcium Acetate 667 MG CAPSULE PO SCH ×2 (08:02→13:12)
[2018-07-06] MEDS ORDERED: Cefepime HCl 1,000 MG in 0.9 % Sodium Chloride Mini Bag 100 ML IVPB SCH (09:00)
--- NOTE | 2018-07-06 09:28 | Nephrology Progress Note ---
Addendum entered and electronically signed by Nigel Donis DO 07/06/18 18:01: The below should read "today" instead of tomorrow, as today is Wednesday. Also I called the outpt [facility] and informed them of his Pseudomonas UTI and that the Hospitalists recommended 14days of outpt Abx therapy of gentamicin. Addendum entered and electronically signed by Nigel Donis DO 07/06/18 18:00: I have personally performed a face to face evaluation on this patient. I have reviewed and agree with the care plan. History and Exam by me shows: ESRD on HD MWF and next due for dialysis tomorrow. Okay to resume his antih ypertensive, but he was counseled for >50% of the encounter to follow a renal diet (low K+ and low Phos), and to never miss HD again. I recommend he not be discharged on any more than 300mg/day of gabapentin. Original Note: Date of Encounter: 07/06/18 Time of Encounter: 09:26 - Assessment and Plan (1) ESRD (end stage renal disease) Current Visit: Yes Status: Chronic Current regimen is Wednesday at [facility]. HD in progress today. Renal diet Renal vitamins Strict I/O Avoid nephrotoxins and renal dose all medications. (2) Hypoglycemia Current Visit: No Status: Acute Resolved. (3) Acute hyperkalemia Current Visit: Yes Status: Acute Resume Losartan. Potassium is 5.3 today, stable. Recommend renal diet. (4) Metabolic encephalopathy Current Visit: Yes Status: Acute Resolved. (5) Hyperphosphatemia Current Visit: Yes Status: Acute Continue Renvela outpatient. Subjective Principal diagnosis: disorientation Interval history: Patient seen and examined in HD, tolerating well. Is ready for discharge after HD treatment. Denies nausea, vomiting or diarrhea. Denies chest pain or shortness breath. No acute events overnight. Objective - Vital Signs Vital signs: Vital Signs Temp Pulse Resp BP Pulse Ox 07/06/18 07:22 98.0 F 58 17 129/75 96 07/06/18 05:41 97.8 F 62 16 132/80 95 07/05/18 23:07 98.5 F 75 18 173/74 96 07/05/18 16:02 98.6 F 84 15 153/80 79 02/05/19 11:47 97.9 F 71 18 169/78 97 07/05/18 10:01 97.5 F L 67 16 158/88 100 Intake and Output 07/05/18 07/06/18 07/06/18 23:59 07:59 15:59 Intake Total 240 / 240 Balance 240 / 240 Intake: Oral 240 / 240 Other: Meal Breakfast Percent of Meal Consumed 100% Blood Glucose* 175 121 - General Appearance General appearance: Present: well-developed, well-nourished EENT: Present: ATNC, hearing intact, vision intact Neck: Present: supple Respiratory: Present: clear Cardiology: Present: no edema, normal S1, normal S2 Dialysis Vascular Access: Venous Catheter thrill: Yes bruit: Yes Additional Comments: LUCHO C/D/I. Gastrointestinal: Present: normoactive bowel sounds, no tenderness, no guarding Integumentary: Present: no rash, warm and dry Neurologic: Present: alert and oriented x3 Musculoskeletal: Present: no deformities, no erythema Psychiatric: Present: mood/affect appropriate, cooperative - Lab 07/06/18 05:43 07/06/18 05:43 Most recent lab results Calcium 8.5 mg/dL (8.6-10.3) L 07/06/18 05:43 Phosphorus 10.3 mg/dL (2.7-4.5) H 07/03/18 07:57 Magnesium 2.5 mg/dL (1.6-2.6) 07/03/18 07:57 Consult Discharge Plan - Plan Referrals: NONE,PCP [Primary Care Provider] -
[2018-07-06] MEDS ORDERED: Gentamicin 1 EACH in 0.9 % Sodium Chloride 100 ML IVPB SCH (11:00)
[2018-07-06] MEDS ORDERED: Gentamicin 1 EACH in 0.9 % Sodium Chloride 100 ML IVPB PRN (11:15)
--- NOTE | 2018-07-06 12:50 | Discharge Summary ---
- NOTES TO OUTPATIENT PROVIDER Notes to Outpatient Provider: Patient with a history of end-stage renal disease who gets dialyzed on a Wednesday schedule, MGUS, diabetes, hypertension was hospitalized here after he missed 2 dialysis appointments due to bad weather. He had been having episodes of nausea, vomiting and confusion along with falls. He was found to have a potassium level of 8 and was taken urgently for hemodialysis here. Since then his been recovering well. He does have a chronic indwelling Mosqueda catheter and urinalysis and culture is positive for Pseudomonas. He will receive gentamicin postdialysis for next couple of weeks. Patient has been evaluated by physical therapy and recommended home health. Patient will be discharged today. Orders not resulted at time of discharge: Pending orders 07/02/18 21:54 Culture,Urine [RM] Stat 07/07/18 04:00 Chem 7 [Basic Metabolic Panel] AM 0400 Complete Blood Count w/o Diff [HEME] AM 0400 07/08/18 04:00 Chem 7 [Basic Metabolic Panel] AM 0400 Complete Blood Count w/o Diff [HEME] AM 0400 07/09/18 04:00 Chem 7 [Basic Metabolic Panel] AM 0400 Complete Blood Count w/o Diff [HEME] AM 0400 07/10/18 04:00 Chem 7 [Basic Metabolic Panel] AM 0400 Complete Blood Count w/o Diff [HEME] AM 0400 07/11/18 04:00 Chem 7 [Basic Metabolic Panel] AM 0400 Complete Blood Count w/o Diff [HEME] AM 0400 07/12/18 04:00 Chem 7 [Basic Metabolic Panel] AM 0400 Complete Blood Count w/o Diff [HEME] AM 0400 Date of Encounter: 07/06/18 Time of Encounter: 11:20 - Discharge Diagnosis (1) ESRD (end stage renal disease) Priority: Primary Status: Chronic (2) CAD (coronary artery disease) Priority: Secondary Status: Chronic Qualifiers: Coronary Disease-Associated Artery/Lesion type: bypass graft [place] vs. transplanted heart: [place] heart Associated angina: without angina Qualified Code(s): I25.810 - Atherosclerosis of coronary artery bypass graft(s) without angina pectoris (3) HTN (hypertension) Priority: Secondary Status: Chronic Qualifiers: Hypertension type: essential hypertension Qualified Code(s): I10 - Essential (primary) hypertension (4) Thrombocytopenia Priority: Secondary Status: Chronic (5) Acute hyperkalemia Priority: Secondary Status: Acute (6) Metabolic encephalopathy Priority: Secondary Status: Acute (7) Falls Priority: Secondary Status: Acute Qualifiers: Encounter type: initial encounter Qualified Code(s): W19.XXXA - Unspecified fall, initial encounter (8) Type 2 diabetes mellitus Priority: Secondary Status: Resolved Qualifiers: Diabetes mellitus snf insulin use: without intermediate designer use Diabetes jhon litus complication status: with hypoglycemia Diabetes mellitus complication detail: with coma Qualified Code(s): E11.641 - Type 2 diabetes mellitus with hypoglycemia with coma (9) UTI (urinary tract infection) due to urinary indwelling Mosqueda catheter Priority: Secondary Status: Acute Qualifiers: Indwelling urinary catheter type: indwelling urethral catheter Encounter type: initial encounter Qualified Code(s): T83.511A - Infection and inflammatory reaction due to indwelling urethral catheter, initial encounter; N39.0 - Urinary tract infection, site not specified Hospital course: Mr. Esquivel is a 78 year old male Patient with a history of end-stage renal disease who gets dialyzed on a Wednesday schedule, MGUS, diabetes, hypertension was hospitalized here after he missed 2 dialysis appointments due to bad weather. He had been having episodes of nausea, vomiting and confusion along with falls. He was found to have a potassium level of 8 and was taken urgently for hemodialysis here. Since then his been recovering well. He does have a chronic indwelling Mosqueda catheter and urinalysis and culture is positive for Pseudomonas. He will receive gentamicin postdialysis for next couple of weeks. Patient has been evaluated by physical therapy and recommended home health. Patient will be discharged today. Patient has also been having episodes of hypoglycemia. As such we decreased his dose of glimepiride to 1 mg daily. Discharge discussed with: patient, rewards consultant - Time Spent with Patient Total time spent providing and/or coordinating discharge services: Greater than 30 minutes (32 min) - Discharge Medications Prescriptions: Glimepiride [Amaryl] 1 mg PO 0800 #30 tablet GuaiFENesin ER [Mucinex] 600 mg PO BID PRN #30 tbbp.12hr PRN Reason: Congestion Home Medications: Atorvastatin Calcium [Lipitor] 20 mg PO HS 01/15/18 [History] Clopidogrel [Plavix] 75 mg PO DAILY 01/15/18 [History] Gabapentin [Neurontin] 300 mg PO TID 01/15/18 [History] Venlafaxine XR (24 HR) [Effexor Xr] 150 mg PO DAILY 01/15/18 [History] Trazodone HCl 100 mg PO HS PRN 01/31/18 [History] Metoprolol XL (24 HR) Succ [Toprol Xl] 200 mg PO DAILY tab.er.24h 02/01/18 [Rx] Losartan Potassium [Cozaar] 50 mg PO DAILY 03/04/18 [History] hydrOXYzine HCl [Hydroxyzine HCl] 25 mg PO Q8H PRN 03/04/18 [History] Calcium Acetate [Phos-LO] 1,334 mg PO TIDWM 07/03/18 [History] Budesonide/Formoterol 160/4.5 [Symbicort 160/4.5] 2 puff IH BIDR 07/04/18 [History] Isosorbide MONOnitrate [Isosorbide Mononitrate ER] 30 mg PO DAILY 07/04/18 [History] Nitroglycerin [Nitrostat] 0.4 mg SL Q5M PRN 07/04/18 [History] Glimepiride [Amaryl] 1 mg PO 0800 #30 tablet 07/06/18 [Rx] GuaiFENesin ER [Mucinex] 600 mg PO BID PRN #30 tbbp.12hr 07/06/18 [Rx] Allergies/Adverse Reactions: Allergy/AdvReac Type Severity Reaction Status Date / Time No Known Allergies Allergy Verified 01/31/18 10:47 Date of admission: 07/04/18 13:36 Primary care physician: PCP NONE Consults: 07/02/18 21:25 Consult to Nephrology [CONS] Stat Consulting Provider: Kidney Faye/AGUSTINA/TRAN/SHRADDHA Reason for Consult: ESRDmissed dialysis with hyperkalemia discussed with Dr Segura Call Completed: Yes 07/02/18 23:00 Consult to Dialysis [CONS] ONCE 07/03/18 00:10 Consult to Physical Therapy [CONS] Routine Comment: Evaluate, develop and implement POC Reason for Consult: Reported falls, discharge planning Does patient have active BEDREST order?: No Is patient medically & hemodynamically stable?: Yes 07/03/18 00:11 Consult to Glazing Superintendent [CONS] Routine Reason for SW Consult: Missed dialysis appointments, reportedly due to no transportation 07/03/18 11:15 Consult to Dialysis [CONS] ONCE 07/04/18 07:30 Consult to Dialysis [CONS] QMWF 07/04/18 14:42 Consult to Nurse Navigator [CONS] Routine Comment: hd 07/06/18 07:30 Consult to Dialysis [CONS] QMWF 07/08/18 07:30 Consult to Dialysis [CONS] QMWF Discharging clinician: Sujata Regalado Anticipated date of discharge: 07/06/18 - Constitutional Vitals: Temp Pulse Resp BP Pulse Ox 97 F L 58 18 90/40 96 07/06/18 08:40 07/06/18 07:22 07/06/18 08:40 07/06/18 12:25 07/06/18 07:22 General appearance: Present: cooperative, A&O X 3, answers questions appropriately Exam: . - Respiratory Respiratory exam: Present: CTAB. Absent: accessory muscle use, rales, rhonchi, wheezes - Cardiovascular Cardiovascular exam: Present: RRR, +S1, +S2. Absent: diastolic murmur, gallop, rubs, systolic murmur - GI/Abdominal GI/Abdominal exam: Present: normal bowel sounds, soft, no peritoneal signs. Absent: distended, tenderness - Extremities Exam Extremities exam: Present: warm, radial pulses palpable and symmetrical. Absent: calf tenderness, cyanotic, pedal edema - Patient Status Disposition: Home, Self-Care Condition: Good Functional capacity at discharge: uses cane/walker Overall status at discharge: patient is progressing back to baseline - Discharge Instructions Instructions: Diabetes Mellitus Type 2 in Adults (DC), Hyperkalemia (DC), Fall Prevention (DC) Follow Up With: NONE,PCP [Primary Care Provider] - (in 1 week ) - Diet and Activity Activity: as per physical therapy Diet: diabetic diet
[2018-07-06 13:12] VITALS: BP 101/65
[2018-07-06] MEDS: Metoprolol XL (24 HR) Succ 50 MG TAB.ER.24H PO SCH (13:13)
--- NOTE | 2018-07-06 13:14 | Physician Discharge Referral ---
Home Health/Hosp Referral Info Transfer to: Home Health Provider in Charge Post Discharge: PCP - Diagnosis (1) ESRD (end stage renal disease) Priority: Primary Status: Chronic (2) CAD (coronary artery disease) Status: Chronic (3) HTN (hypertension) Status: Chronic (4) Thrombocytopenia Status: Chronic (5) Acute hyperkalemia Status: Acute (6) Metabolic encephalopathy Status: Acute (7) Falls Status: Acute (8) Type 2 diabetes mellitus Status: Resolved - Respiratory Orders Smoking Cessation: Smoking cessation has been advised. For more information, call the [place] Tobacco Quit Line at 5-578-MFJG-NOW. - Diet/Nutrition Diet/Nutrition Orders: Cardiac, No Concentrated Sweets (diabetic) - Activity Activity Orders: Walker - Services Needed Following services are medically necessary services: Physical Therapy, Occupational Therapy - Transfer Medications Prescriptions: Glimepiride [Amaryl] 1 mg PO 0800 #30 tablet GuaiFENesin ER [Mucinex] 600 mg PO BID PRN #30 tbbp.12hr PRN Reason: Congestion Home Medications: Atorvastatin Calcium [Lipitor] 20 mg PO HS 01/15/18 [History] Clopidogrel [Plavix] 75 mg PO DAILY 01/15/18 [History] Gabapentin [Neurontin] 300 mg PO TID 01/15/18 [History] Venlafaxine XR (24 HR) [Effexor Xr] 150 mg PO DAILY 01/15/18 [History] Trazodone HCl 100 mg PO HS PRN 01/31/18 [History] Metoprolol XL (24 HR) Succ [Toprol Xl] 200 mg PO DAILY tab.er.24h 02/01/18 [Rx] Losartan Potassium [Cozaar] 50 mg PO DAILY 03/04/18 [History] hydrOXYzine HCl [Hydroxyzine HCl] 25 mg PO Q8H PRN 03/04/18 [History] Calcium Acetate [Phos-LO] 1,334 mg PO TIDWM 07/03/18 [History] Budesonide/Formoterol 160/4.5 [Symbicort 160/4.5] 2 puff IH BIDR 07/04/18 [History] Isosorbide MONOnitrate [Isosorbide Mononitrate ER] 30 mg PO DAILY 07/04/18 [History] Nitroglycerin [Nitrostat] 0.4 mg SL Q5M PRN 07/04/18 [History] Glimepiride [Amaryl] 1 mg PO 0800 #30 tablet 07/06/18 [Rx] GuaiFENesin ER [Mucinex] 600 mg PO BID PRN #30 tbbp.12hr 07/06/18 [Rx] Allergies/Adverse Reactions: Allergy/AdvReac Type Severity Reaction Status Date / Time No Known Allergies Allergy Verified 01/31/18 10:47 Certification: Further, I certify that my clinical findings support that this patient is homebound (i.e. absences from home require considerable and taxing effort and are for medical reasons or scientology services or infrequently or short duration when for other reasons) because: Homebound Reason: Patient requires assistance of a person or device to safely leave home Attestation: My signature below is to certify that this patient is under my care and that I, or nurse practitioner, or a physician's visitor services information assistant working with me, has a [id number] encounter with this patient.
[2018-07-06] MEDS ORDERED: Gentamicin 240 MG in 0.9 % Sodium Chloride 100 ML IVPB ONE (14:00)
[2018-07-06] MEDS ORDERED: Aminoglycoside Consult 1 EACH MC ONE (15:41)
[2018-07-06] MEDS ORDERED: Gentamicin 160 MG in 0.9 % Sodium Chloride 100 ML IVPB ONE (16:00)
== END 2018-07-06 15:42 | disposition home or self-care (01) | DRG 640 ==
LOC: 2ANU 20:06 → EMEROOARM 20:06 → SUATTDRO 23:59 → 2ANU 07-03 00:17 → SUATTDRO 07-04 13:36
PROVIDERS: ADMIT Internal Medicine; ATTEND Internal Medicine

== ENCOUNTER 2018-10-03 15:46 | Inpatient (IN) ==
[2018-10-03 17:01] LABS: Basophils % 0.6 %; Eosinophils # 0.8 K/mcL (0.0-0.6); Hematocrit 32.1 % (37.5-50.1); Hemoglobin 9.6 g/dL (12.9-16.9); Immature Granulocytes % 0.2 % (0-4); Lymphocytes # 0.9 K/mcL (0.6-4.6); Lymphocytes % 16.7 %; Mean Corpuscular HGB Conc 29.9 g/dL (31.6-35.5); Mean Corpuscular Hemoglobin 30.4 pg (28.0-33.3); Mean Corpuscular Volume 101.6 fL (83.0-100.0); Mean Platelet Volume 10.2 fL (9.4-12.4); Monocytes # 0.6 K/mcL (0.0-1.3); Neutrophils # 2.9 K/mcL (1.6-8.9); Red Blood Count 3.16 M/mcL (4.19-5.50); Red Cell Distribution Width 17.2 % (11.5-14.5); Segmented Neutrophils % 55.5 %
[2018-10-03 17:02] LABS: Platelet Count 87 K/mcL (140-400)
[2018-10-03 17:09] LABS: INR 1.3; Prothrombin Time 14.4 Seconds (9.4-12.1)
[2018-10-03 17:11] LABS: Activated Partial Thrombo Time 32.3 Seconds (26.0-36.0)
[2018-10-03 17:37] LABS: Alanine Aminotransferase 10 Units/L (7-52); Albumin 3.3 g/dL (3.5-5.7); Albumin/Globulin Ratio 0.7 (1.1-2.2); Alkaline Phosphatase 105 Units/L (34-104); Aspartate Amino Transferase 19 Units/L (13-39); BUN/Creatinine Ratio 4 (6-26); Bilirubin,Direct 0.1 mg/dL (0.0-0.2); Bilirubin,Indirect 0.4 mg/dL (0.0-1.2); Bilirubin,Total 0.5 mg/dL (0.3-1.0); Blood Urea Nitrogen 22 mg/dL (8-23); Calcium 7.6 mg/dL (8.6-10.3); Carbon Dioxide 29 mEq/L (23-29); Chloride 96 mEq/L (98-107); Ethanol < 10 mg/dL (Less than 10); Globulin 4.5 g/dL (2.4-3.5); Glucose 173 mg/dL (70-105); Osmolality,Calculated 289 (280-300); Potassium 4.3 mEq/L (3.5-5.1); Sodium 136 mEq/L (136-145); Total Protein 7.8 g/dL (6.4-8.9); Troponin I 0.03 ng/mL (< 0.04); eGFR For Non-African Americans 11 (> 60)
--- NOTE | 2018-10-03 19:41 | Emergency Department Note ---
Disposition Clinical Impression: Altered mental status, End stage renal disease on dialysis, Pneumonia Disposition: Admitted As Inpatient Referrals: NONE,PCP [Primary Care Provider] - Time of Disposition: 19:41 Altered Mental Status HPI - General Chief Complaint: ED Altered Mental Status Stated Complaint: AMS Time Seen by Provider: 10/03/18 16:02 Source: EMS Limitations: altered mental status - History of Present Illness HPI Narrative: Patient is 78-year-old gentleman who presents to emergency department with chief complaint of altered mental status. Per the patient's family the patient went to dialysis and had extra fluid removed from him today. Patient states that he has been not his usual self and has been asking strange questions. The patient recently was treated for pneumonia and had a significant amount of fluid removed at dialysis. The patient states that he is not having any chest pain denies fever denies nausea vomiting or diarrhea. MD complaint: altered mental status - Related Data Home Medications Medication Instructions Recorded Confirmed Clopidogrel [Plavix] 75 mg PO DAILY 01/15/18 09/22/18 Venlafaxine XR (24 HR) [Effexor Xr] 150 mg PO DAILY 01/15/18 09/22/18 Trazodone HCl 100 mg PO HS PRN 01/31/18 09/22/18 Calcium Acetate [Phos-LO] 1,334 mg PO TIDWM 07/03/18 09/22/18 Nitroglycerin [Nitrostat] 0.4 mg SL Q5M PRN 07/04/18 09/22/18 Aspirin [Lo-Dose Aspirin EC] 81 mg PO DAILY 08/23/18 09/22/18 Atorvastatin Calcium [Lipitor] 20 mg PO HS 08/23/18 09/22/18 Acetaminophen [Tylenol] 650 mg PO Q6HR PRN 09/22/18 09/22/18 Previous Rx's Medication Instructions Recorded Metoprolol Succinate 200 mg PO DAILY #0 08/24/18 Ondansetron ODT [Zofran ODT] 4 mg SL Q6HR PRN #20 tab.rapdis 08/24/18 Gabapentin [Neurontin] 100 mg PO TID #0 09/08/18 levoFLOXacin [Levaquin] 500 mg PO Q48H #3 tablet 09/24/18 Allergies Allergy/AdvReac Type Severity Reaction Status Date / Time No Known Allergies Allergy Verified 08/30/18 18:09 All systems ED: reviewed and negative except as stated. Past Medical History - Past Medical History Attestation: Yes The following information was validated with the patient. Medical history: Reports: aortic aneurysm, arthritis, coronary artery disease, diabetes, dialysis, hyperlipidemia, hypertension, renal disease Surgical history: Reports: angioplasty/stent, coronary bypass (CABG), orthopedic, other, other Psychiatric history: Reports: anxiety, depression - Social History Smoking Status: Former smoker Smokeless Tobacco Status: No Alcohol use: Reports: none Drug use: Reports: none Physical Exam General: Conversant and pleasant interactive and nontoxic. Head: Normocephalic/atraumatic Eyes:PERRLA, EOMI, no conjunctivitis Nares: Without d/c. Ears: No erythema or d/c noted. Oralpharnyx: P&MMM noted, Neck: Supple, no JVD or [employer]IST noted. Cardovascular: regular rate and rhythm without murmur, brisk capillary refill, no peripheral edema. Lungs: Clear to ascultation bilaterally, non-labored Abd: Soft nontender, Non Distended, no guarding, no rebound. : Defered Extremities: moves all extremities equally Neuro: AOx3, no obvious gross neuro deficit patient asking strange questions at times Psych: Normal Affect Derm: No rash noted - General Limitations: altered mental status General appearance: alert Course Vital Signs Temperature 98.9 F 10/03/18 15:56 Pulse Rate 69 10/03/18 15:56 Respiratory Rate 19 10/03/18 15:56 Blood Pressure 129/71 10/03/18 15:56 O2 Sat by Pulse Oximetry 94 10/03/18 15:56 Temperature 98.9 F 10/03/18 15:56 Pulse Rate 78 10/03/18 18:57 Respiratory Rate 21 10/03/18 18:57 Blood Pressure 110/60 10/03/18 18:57 O2 Sat by Pulse Oximetry 90 10/03/18 18:57 Oxygen Delivery Oxygen Delivery Nasal Cannula Altered Mental Status - Lab Data Result diagrams: 10/03/18 16:17 10/03/18 16:17 Lab Results 10/03/18 10/03/18 10/03/18 Range/Units 16:17 16:17 16:17 WBC 5.2 (4.3-11.1) K/mcL RBC 3.16 L (4.19-5.50) M/mcL Hgb 9.6 L (12.9-16.9) g/dL Hct 32.1 L (37.5-50.1) % MCV 101.6 H (83.0-100.0) fL MCH 30.4 (28.0-33.3) pg MCHC 29.9 L (31.6-35.5) g/dL RDW 17.2 H (11.5-14.5) % Plt Count 87 L (140-400) K/mcL MPV 10.2 (9.4-12.4) fL Immature Gran % 0.2 (0-4) % Seg Neutrophils % 55.5 % Lymphocytes % 16.7 % Monocytes % 12.0 % Eosinophils % 15.0 % Basophils % 0.6 % Neutrophils # 2.9 (1.6-8.9) K/mcL Lymphocytes # 0.9 (0.6-4.6) K/mcL Monocytes # 0.6 (0.0-1.3) K/mcL Eosinophils # 0.8 H (0.0-0.6) K/mcL Basophils # 0.0 (0.0-0.2) K/mcL PT 14.4 H (9.4-12.1) Seconds INR 1.3 APTT 32.3 (26.0-36.0) Seconds Sodium 136 (136-145) mEq/L Potassium 4.3 (3.5-5.1) mEq/L Chloride 96 L (98-107) mEq/L Carbon Dioxide 29 (23-29) mEq/L BUN 22 (8-23) mg/dL Creatinine 5.21 H (0.70-1.30) mg/dL Est GFR ( Amer) 13 L (> 60) Est GFR (Non-Af Amer) 11 L (> 60) BUN/Creatinine Ratio 4 L (6-26) Glucose 173 H (70-105) mg/dL Calculated Osmolality 289 (280-300) Lactic Acid (0.5-2.2) mmol/L Calcium 7.6 L (8.6-10.3) mg/dL Total Bilirubin 0.5 (0.3-1.0) mg/dL Direct Bilirubin 0.1 (0.0-0.2) mg/dL Indirect Bilirubin 0.4 (0.0-1.2) mg/dL AST 19 (13-39) Units/L ALT 10 (7-52) Units/L Alkaline Phosphatase 105 H (34-104) Units/L Ammonia (16-53) mcmol/L Troponin I 0.03 (< 0.04) ng/mL Serum Total Protein 7.8 (6.4-8.9) g/dL Albumin 3.3 L (3.5-5.7) g/dL Globulin 4.5 H (2.4-3.5) g/dL Albumin/Globulin Ratio 0.7 L (1.1-2.2) Ethyl Alcohol < 10 (Less than 10) mg/dL 10/03/18 10/03/18 Range/Units 16:38 16:38 WBC (4.3-11.1) K/mcL RBC (4.19-5.50) M/mcL Hgb (12.9-16.9) g/dL Hct (37.5-50.1) % MCV (83.0-100.0) fL MCH (28.0-33.3) pg MCHC (31.6-35.5) g/dL RDW (11.5-14.5) % Plt Count (140-400) K/mcL MPV (9.4-12.4) fL Immature Gran % (0-4) % Seg Neutrophils % % Lymphocytes % % Monocytes % % Eosinophils % % Basophils % % Neutrophils # (1.6-8.9) K/mcL Lymphocytes # (0.6-4.6) K/mcL Monocytes # (0.0-1.3) K/mcL Eosinophils # (0.0-0.6) K/mcL Basophils # (0.0-0.2) K/mcL PT (9.4-12.1) Seconds INR APTT (26.0-36.0) Seconds Sodium (136-145) mEq/L Potassium (3.5-5.1) mEq/L Chloride (98-107) mEq/L Carbon Dioxide (23-29) mEq/L BUN (8-23) mg/dL Creatinine (0.70-1.30) mg/dL Est GFR ( Amer) (> 60) Est GFR (Non-Af Amer) (> 60) BUN/Creatinine Ratio (6-26) Glucose (70-105) mg/dL Calculated Osmolality (280-300) Lactic Acid 0.8 (0.5-2.2) mmol/L Calcium (8.6-10.3) mg/dL Total Bilirubin (0.3-1.0) mg/dL Direct Bilirubin (0.0-0.2) mg/dL Indirect Bilirubin (0.0-1.2) mg/dL AST (13-39) Units/L ALT (7-52) Units/L Alkaline Phosphatase (34-104) Units/L Ammonia 34 (16-53) mcmol/L Troponin I (< 0.04) ng/mL Serum Total Protein (6.4-8.9) g/dL Albumin (3.5-5.7) g/dL Globulin (2.4-3.5) g/dL Albumin/Globulin Ratio (1.1-2.2) Ethyl Alcohol (Less than 10) mg/dL TPA Checklist - LKW: 3-4.5 hrs Add. Warnings/Precautions Patient/family understanding: The patient/family members have been counseled and understood the risk, benefit, and alternatives of treatment.
[2018-10-03] MEDS ORDERED: Naloxone 0.4 MG/ML INJ IVP PRN (20:47)
--- NOTE | 2018-10-03 21:15 | Internal Med History&Physical ---
<Calin Laguna S - Last Filed: 10/04/18 01:20> Date of Encounter: 10/04/18 Time of Encounter: 20:00 Internal Medicine - H&P: HPI Chief complaint: Shortness of breath Admitted From: Emergency Dept History of present illness: Mr. Esquivel is a 78 year old male with PMHx of ESRD on dialysis, HTN, DM, CAD s/p CABG (2017) presents with complaints of shortness of breath and AMS following dialysis treatment today. Patient gets dialysis three times per week and states after his treatment today he became short of breath. He has been tr eated for pneumonia as an inpatient a couple times in the past 6-8 weeks and had a thoracentesis in August 2018 for pleural effusion. His was in the room and said he was also hallucinating, stating he called her and said he was at "[employer] night and wanted her to come pick him up." He went back to his halfway after the treatment, and due to his continued SOB and hallucinations, he was brought to [facility] ED. Patient is afebrile, normal heart rate, and saturating at 90% on 6L of O2. Labs significant for Cr of 5.21, platelets of 87 (baseline), Hgb 9.6 (baseline), no leukocytosis or lactic acidosis. Head CT shows diffuse atrophy, suggesting chronic microvascular ischemia. Chest x-ray shows right opacity and pleural effusion. He had blood cultures drawns and started on IV vancomycin and zosyn. Patient states he isn't short of breath since being placed on oxygen in the ED. He denies shortness of breath, chest pain, headache, nausea/vomiting, abdominal pain, loss of consciousness. He does have some tingling in his feet, which is constant from his diabetes. He denies smoking and drug history. No current alcohol, but used to drink a couple beers per week. Past Med Surg Social Fam HX - Past Medical History Medical history: aortic aneurysm, arthritis, coronary artery disease, diabetes, dialysis, hyperlipidemia, hypertension, renal disease Additional medical history: BLADDER NECK CONTRACTURE, SQUAMOUS CELL CANCER. 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), triple bypass - Social History Smoking Status: Former smoker Smokeless Tobacco Status: No Alcohol use: none Drug use: none - Family History Father Adopted: No Family Member Ethnicity: Non- Living Status: Hx Family Cardiac Disorders: Yes ([place]) Mother Adopted: No Family Member Ethnicity: Non- Living Status: Hx Family Cancer: Yes Brother Family Member Ethnicity: Non- Living Status: Still Living Sister Adopted: No Family Member Ethnicity: Non- Living Status: Still Living Hx Family Cardiac Disorders: Yes Hx Family Respiratory Disorders: No Hx Family Cancer: Yes Hx Family GI Disorders: No Hx Family Endocrine Disorder: Yes Hx Family Neuromuscular Disorders: No Hx Family Neurologic Disorders: No Hx Family HEENT Disorders: No Hx Family Autoimmune Disorders: No Internal Medicine - H&P: Meds Clopidogrel [Plavix] 75 mg PO DAILY 01/15/18 [History] Venlafaxine XR (24 HR) [Effexor Xr] 150 mg PO DAILY 01/15/18 [History] Trazodone HCl 100 mg PO HS PRN 01/31/18 [History] Calcium Acetate [Phos-LO] 1,334 mg PO TIDWM 07/03/18 [History] Nitroglycerin [Nitrostat] 0.4 mg SL Q5M PRN 07/04/18 [History] Aspirin [Lo-Dose Aspirin EC] 81 mg PO DAILY 08/23/18 [History] Atorvastatin Calcium [Lipitor] 20 mg PO HS 08/23/18 [History] Metoprolol Succinate 200 mg PO DAILY #0 08/24/18 [Rx] Ondansetron ODT [Zofran ODT] 4 mg SL Q6HR PRN #20 tab.rapdis 08/24/18 [Rx] Gabapentin [Neurontin] 100 mg PO TID #0 09/08/18 [Rx] Acetaminophen [Tylenol] 650 mg PO Q6HR PRN 09/22/18 [History] Lorazepam 0.5 mg PO BID 10/03/18 [History] Oxycodone HCl 5 mg PO QID PRN 10/03/18 [History] Allergy/AdvReac Type Severity Reaction Status Date / Time No Known Allergies Allergy Verified 08/30/18 18:09 All Systems PM: A 10-system review of systems was performed and is negative for pertinent findings except as documented above in the HPI. - Constitutional Vitals: Temp Pulse Resp BP Pulse Ox 98.9 F 72 24 133/77 90 10/03/18 15:56 10/03/18 20:02 10/03/18 20:02 10/03/18 20:02 10/03/18 20:02 General appearance: Present: A&O X 3, no acute distress, answers questions appropriately Exam: Patient doesn't appear to be altered, he is answering questions appropriately and is alert and oriented x3 - Eye Eye exam: Present: EOMI. Absent: conjunctival injection - ENT ENT exam: Present: mucous membranes moist, normal oropharynx - Respiratory Respiratory exam: Present: rales (bilateral bases, R>L) - Cardiovascular Cardiovascular exam: Present: RRR, +S1, +S2. Absent: JVD - GI/Abdominal GI/Abdominal exam: Present: normal bowel sounds, soft. Absent: tenderness - Extremities Exam Extremities exam: Present: normal capillary refill, radial pulses palpable and symmetrical. Absent: calf tenderness, pedal edema, tenderness - Neurological Exam Neurological exam: Present: alert, CN II-XII intact, oriented X3, reflexes normal, no focal deficits, strengths equal and symetr throughout - Psychiatric Psychiatric exam: Present: normal affect, normal mood - Skin Skin exam: Present: dry, warm Internal Med - H&P Results - Labs CBC & Chem 7: 10/03/18 16:17 10/03/18 16:17 Labs: Short CBC 10/03/18 Range/Units 16:17 WBC 5.2 (4.3-11.1) K/mcL Hgb 9.6 L (12.9-16.9) g/dL Hct 32.1 L (37.5-50.1) % Plt Count 87 L (140-400) K/mcL Neutrophils # 2.9 (1.6-8.9) K/mcL BMP 10/03/18 16:17 Sodium 136 Potassium 4.3 Chloride 96 L Carbon Dioxide 29 BUN 22 Creatinine 5.21 H Glucose 173 H Calcium 7.6 L Cardiac Enzymes 10/03/18 Range/Units 16:17 Troponin I 0.03 (< 0.04) ng/mL Liver Function 10/03/18 Range/Units 16:17 Total Bilirubin 0.5 (0.3-1.0) mg/dL Direct Bilirubin 0.1 (0.0-0.2) mg/dL AST 19 (13-39) Units/L ALT 10 (7-52) Units/L Alkaline Phosphatase 105 H (34-104) Units/L Albumin 3.3 L (3.5-5.7) g/dL - Impressions ITS Impressions Chest X-Ray 10/03/18 16:17 IMPRESSION: Findings concerning for infection on the right as well as small to moderate right pleural effusion. D/ / Virginia Lee MD / Virginia Lee MD Interpreting Provider: Virginia Lee MD Head CT 10/03/18 16:18 IMPRESSION: No acute intracranial abnormality. Diffuse atrophic changes with findings suggesting chronic microvascular ischemia D/ / Gamaliel Pleitez MD / Gamaliel Pleitez MD Interpreting Provider: Gamaliel Pleitez MD - Assessment and Plan (1) Pneumonia Current Visit: Yes Status: Acute Assessment and plan: Chest x-ray shows opacity in mid and lower right lung Afebrile WBC 5.2 Patient saturating at 90% on 6L oxygen No respiratory distress on oxygen Patient started on IV vancomycin and zosyn Chest CT ordered Qualifiers: Pneumonia type: due to Haemophilus influenzae Laterality: bilateral Lung location: lower lobe of lung Qualified Code(s): J14 - Pneumonia due to Hemophilus influenzae (2) Pleural effusion Current Visit: Yes Status: Acute Assessment and plan: Chest x-ray showed small-moderate right pleural effusion Patient with recurrent right-sided pleural effusions S/p thoracentesis for R pleural effusion on 09/22/[address] to assess fluid Consulted IR for pleural fluid drain Requested results be sent for pathology, cytology, gram stain, and culture Ordered triglyceride level to rule out chylothorax (3) ESRD (end stage renal disease) on dialysis Current Visit: Yes Status: Chronic Assessment and plan: Patient on dialysis three times per week Had dialysis today, patient developed shortness of breath following dialysis Cr 5.21 in ED, will repeat labs in morning Nephrology consulted (4) Anemia Current Visit: No Status: Chronic Assessment and plan: Chronic Hb 9.6, at baseline Qualifiers: Anemia type: due to chronic kidney disease Chronic kidney disease stage: unspecified stage Qualified Code(s): N18.9 - Chronic kidney disease, unspecified; D63.1 - Anemia in chronic kidney disease (5) Thrombocytopenia Current Visit: No Status: Chronic Assessment and plan: Chronic Platelets 87, at baseline (6) Altered mental status Current Visit: Yes Status: Acute Assessment and plan: Patient's reports he was confused earlier today when he called her from the halfway and asked her to pick him up from [facility] In ED, he was alert and oriented x3, but seemed to ask strange questions On my exam, patient seemed improved as he was A&O x3 and wasn't asking any odd questions Head CT showed diffuse atrophy, suggesting chronic microvascular ischemia, but no acute abnormalities Qualifiers: Qualified Code(s): R41.82 - Altered mental status, unspecified - Time Spent With Patient Total time spent is greater than 50% in coordination of care (as documented) at patient's floor/unit and/or counseling patient: <Rishabh Walter - Last Filed: 10/04/18 06:31> Date of Encounter: 10/04/18 Time of Encounter: 04:10 - Constitutional Vitals: Temp Pulse Resp BP Pulse Ox 98.5 F 68 16 120/75 99 10/04/18 04:00 10/04/18 04:00 10/04/18 04:00 10/04/18 04:00 10/04/18 04:00 General appearance: Present: A&O X 3, no acute distress, answers questions appro priately - Eye Eye exam: Present: PERRL. Absent: scleral icterus - ENT ENT exam: Present: mucous membranes moist, normal oropharynx - Neck Neck exam general surgery: Present: full ROM, supple, trachea midline. Absent: tenderness, nuchal rigidity, thyromegaly - Respiratory Respiratory exam: Present: rales, respiratory distress (mild). Absent: chest wall tenderness, rhonchi, wheezes - Cardiovascular Cardiovascular exam: Present: distant heart sounds, RRR, +S1, +S2. Absent: diastolic murmur, systolic murmur - GI/Abdominal GI/Abdominal exam: Present: soft. Absent: tenderness - Extremities Exam Extremities exam: Present: warm, radial pulses palpable and symmetrical. Absent: calf tenderness, pedal edema, tenderness - Back Exam Back exam: Absent: CVA tenderness (L), CVA tenderness (R) - Neurological Exam Neurological exam: Present: alert, oriented X3, no focal deficits - Psychiatric Psychiatric exam: Present: normal affect, normal mood - Skin Skin exam: Present: dry, intact, warm Internal Med - H&P Results - Labs CBC & Chem 7: 10/03/18 16:17 10/03/18 16:17 Labs: Short CBC 10/03/18 Range/Units 16:17 WBC 5.2 (4.3-11.1) K/mcL Hgb 9.6 L (12.9-16.9) g/dL Hct 32.1 L (37.5-50.1) % Plt Count 87 L (140-400) K/mcL Neutrophils # 2.9 (1.6-8.9) K/mcL BMP 10/03/18 16:17 Sodium 136 Potassium 4.3 Chloride 96 L Carbon Dioxide 29 BUN 22 Creatinine 5.21 H Glucose 173 H Calcium 7.6 L Cardiac Enzymes 10/03/18 Range/Units 16:17 Troponin I 0.03 (< 0.04) ng/mL Liver Function 10/03/18 Range/Units 16:17 Total Bilirubin 0.5 (0.3-1.0) mg/dL Direct Bilirubin 0.1 (0.0-0.2) mg/dL AST 19 (13-39) Units/L ALT 10 (7-52) Units/L Alkaline Phosphatase 105 H (34-104) Units/L Albumin 3.3 L (3.5-5.7) g/dL - Impressions ITS Impressions Chest X-Ray 10/03/18 16:17 IMPRESSION: Findings concerning for infection on the right as well as small to moderate right pleural effusion. D/ / Virginia Lee MD / Virginia Lee MD Interpreting Provider: Virginia Lee MD Head CT 10/03/18 16:18 IMPRESSION: No acute intracranial abnormality. Diffuse atrophic changes with findings suggesting chronic microvascular ischemia D/ / Gamaliel Pleitez MD / Gamaliel Pleitez MD Interpreting Provider: Gamaliel Pleitez MD - Diagnostic Studies Chest x-ray Status: image reviewed by me (moderate right pleural effusion) - Assessment and Plan (1) Anemia Current Visit: No Status: Chronic Qualifiers: Anemia type: due to chronic kidney disease Chronic kidney disease stage: unspecified stage Qualified Code(s): N18.9 - Chronic kidney disease, unspecified; D63.1 - Anemia in chronic kidney disease (2) Thrombocytopenia Current Visit: No Status: Chronic (3) Pleural effusion Current Visit: Yes Status: Acute (4) Pneumonia Current Visit: Yes Status: Acute Qualifiers: Pneumonia type: due to Haemophilus influenzae Laterality: bilateral Lung location: lower lobe of lung Qualified Code(s): J14 - Pneumonia due to Hemophilus influenzae (5) ESRD (end stage renal disease) on dialysis Current Visit: Yes Status: Chronic (6) Altered mental status Current Visit: Yes Status: Acute Qualifiers: Qualified Code(s): R41.82 - Altered mental status, unspecified - Time Spent With Patient Total time spent is greater than 50% in coordination of care (as documented) at patient's floor/unit and/or counseling patient: - Attending Attestation I discussed the patient [place], past medical history, review of systems, lab data, imaging data, and exam findings with Dr. Laguna. I then saw and examined patient independently. I reviewed old records, old x-rays, and old procedure notes from interventional radiology. Patient has had recurrent pleural effusions requiring thoracentesis. I am concerned this may be a malignant effusion rather than parapneumonic effusion. He has only had one series of pleural fluid analysis, which revealed a lymphocyte predominant transudative process. This concerns me that this may be more malignant than infectious process. I asked Dr. Laguna to order CT scan of the chest and also to consult IR for repeat thoracentesis for diagnostic and therapeutic purposes. Meanwhile, we will keep him on antibiotics and follow him clinically. He may warrant pulmonary and/or oncology consultation pending his thoracentesis results. Other than my comments above and documented findings, I agree with Dr. Laguna's assessment and plan.
[2018-10-03] MEDS ORDERED: Nitroglycerin 0.4 MG TAB.SUBL SL PRN (21:39)
[2018-10-03] MEDS ORDERED: Ondansetron ODT 4 MG TAB.RAPDIS SL PRN (21:39)
[2018-10-03] MEDS: Gabapentin 100 MG CAPSULE PO SCH (22:40)
[2018-10-03] MEDS: Acetaminophen 325 MG TABLET PO PRN (22:59)
[2018-10-03] MEDS: traZODone 50 MG TABLET PO PRN (22:59)
[2018-10-04] MEDS: *HR* Heparin 5,000 UNIT/ML VIAL SQ SCH ×2 (05:48→17:58)
[2018-10-04 06:50] LABS: Hematocrit 31.4 % (37.5-50.1); Hemoglobin 9.4 g/dL (12.9-16.9); Mean Corpuscular HGB Conc 29.9 g/dL (31.6-35.5); Mean Corpuscular Hemoglobin 30.1 pg (28.0-33.3); Mean Corpuscular Volume 100.6 fL (83.0-100.0); Red Blood Count 3.12 M/mcL (4.19-5.50)
[2018-10-04 06:52] LABS: Basophils % 0.5 %; Eosinophils # 0.7 K/mcL (0.0-0.6); Eosinophils % 16.3 %; Immature Granulocytes % 0.2 % (0-4); Lymphocytes % 23.2 %; Monocytes % 15.8 %; Neutrophils # 1.8 K/mcL (1.6-8.9); Red Cell Distribution Width 17.3 % (11.5-14.5)
[2018-10-04 07:09] LABS: Monocytes # 0.7 K/mcL (0.0-1.3); Platelet Count 86 K/mcL (140-400)
[2018-10-04 07:30] LABS: Albumin/Globulin Ratio 0.7 (1.1-2.2); Bilirubin,Total 0.5 mg/dL (0.3-1.0); Calcium 7.7 mg/dL (8.6-10.3); Globulin 4.3 g/dL (2.4-3.5); Phosphorous 5.4 mg/dL (2.7-4.5); Potassium 4.7 mEq/L (3.5-5.1); Total Protein 7.3 g/dL (6.4-8.9)
[2018-10-04] MEDS ORDERED: Piperacillin/Tazobactam 3.375 GM in 0.9 % Sodium Chloride Mini Bag 100 ML IVPB SCH (08:00)
--- NOTE | 2018-10-04 08:13 | Internal Med Progress Note ---
Hospitalist Progress Note - Encounter Date of Encounter: 10/04/18 Time of Encounter: 08:12 - Subjective Interval History: Pt says he's feeling slightly better already with abx, and is willing to undergo IR thoracentesis and he's had them in the recent past. No N/V, no abd pain or diarrhea, no CP. - Exam Vitals: Temp Pulse Resp BP Pulse Ox 97.9 F 72 18 144/77 100 10/04/18 06:42 10/04/18 06:42 10/04/18 06:42 10/04/18 06:42 10/04/18 06:42 Exam: General: NAD, good eye contact, elderly Thoracic: decent aeration, diminished R base Cardio: Normal S1 and S2, regular rate and rhythm Abdomen: Soft, nontender, mild distention Extremities: Warm, well perfused. Pitting LE edema Skin: Intact. No rashes, bruises, or ulcers Neuro: Awake, fully oriented. Speech fluent - Summary of Assessment and Plan Summary of Assessment and Plan: Ike Esquivel is a 78 M w hx ESRD on HD MWF, HFrEF 45%, CAD s/p CABG, HTN, DM2, obesity, who p/w SOB and confusion following HD, and found on CXR to have recurrent R>L pleural effusions as well as RML/RLL opacity confirmed on CT, concerning for pneumonia. Hospital acquired pneumonia: pt afebrile and no leukocytosis, with subacute progressive symptoms and transudative bilateral effusion, but will cover empirically given recurrence of respiratory symptoms now w confusion and CT showing persistent infiltrates, and recent discharge on levaquin 750 which ended 09/29 - vanc/zosyn - BCx x2 pending - consider pulm consult Bilateral R>L loculated pleural effusions: s/p thoracentesis of 1.5L last admission on 09/22 via IR with improvement in symptoms, studies of which were transudative. - IR consult for thoracentesis - send studies for stain/culture, count/diff, protein, LDH, pH - volume management per HD Chronic HFrEF 45%: - volume management per HD ESRD on HD MWF: Neph consulted, to get HD tomorrow CAD s/p CABG: ASA, plavix, lipitor 20, toprol 200 HTN: toprol 200, HD DM2: controlled, monitor Obesity: BMI 31 PPx: sqh FEN: renal ADA, no MIVF Lines: PIV Consults: Neph Code: Full Dispo: patient requires inpatient eval and management at this time. Anticipate 1-2 days. Will return to [facility] Internal Medicine: Result - Labs CBC & Chem 7: 10/04/18 06:21 10/04/18 06:21 Labs: Short CBC 10/03/18 10/04/18 Range/Units 16:17 06:21 WBC 5.2 4.1 L (4.3-11.1) K/mcL Hgb 9.6 L 9.4 L (12.9-16.9) g/dL Hct 32.1 L 31.4 L (37.5-50.1) % Plt Count 87 L 86 L (140-400) K/mcL Neutrophils # 2.9 1.8 (1.6-8.9) K/mcL BMP 10/03/18 10/04/18 16:17 06:21 Sodium 136 138 Potassium 4.3 4.7 Chloride 96 L 98 Carbon Dioxide 29 31 H BUN 22 25 H Creatinine 5.21 H 6.16 H Glucose 173 H 88 Calcium 7.6 L 7.7 L Cardiac Enzymes 10/03/18 Range/Units 16:17 Troponin I 0.03 (< 0.04) ng/mL Liver Function 10/03/18 10/04/18 Range/Units 16:17 06:21 Total Bilirubin 0.5 0.5 (0.3-1.0) mg/dL Direct Bilirubin 0.1 (0.0-0.2) mg/dL AST 19 17 (13-39) Units/L ALT 10 9 (7-52) Units/L Alkaline Phosphatase 105 H 105 H (34-104) Units/L Albumin 3.3 L 3.0 L (3.5-5.7) g/dL - ABG Interpretation ABG results: PT/INR, D-dimer PT 14.4 Seconds (9.4-12.1) H 10/03/18 16:17 - Impressions Impressions Chest X-Ray 10/03/18 16:17 IMPRESSION: Findings concerning for infection on the right as well as small to moderate right pleural effusion. D/ / Virginia Lee MD / Virginia Lee MD Interpreting Provider: Virginia Lee MD Head CT 10/03/18 16:18 IMPRESSION: No acute intracranial abnormality. Diffuse atrophic changes with findings suggesting chronic microvascular ischemia D/ / Gamaliel Pleitez MD / Gamaliel Pleitez MD Interpreting Provider: Gamaliel Pleitez MD Consult Discharge Plan - Plan Referrals: NONE,PCP [Primary Care Provider] -
[2018-10-04] MEDS: Venlafaxine XR (24 HR) 150 MG CAP.ER.24H PO SCH (09:14)
[2018-10-04] MEDS: Gabapentin 100 MG CAPSULE PO SCH ×3 (09:14→20:59)
[2018-10-04] MEDS: Calcium Acetate 667 MG CAPSULE PO SCH ×3 (09:14→17:58)
[2018-10-04] MEDS: Metoprolol XL (24 HR) Succ 50 MG TAB.ER.24H PO SCH (09:14)
[2018-10-04] MEDS: Piperacillin/Tazobactam 3.375 GM in 0.9 % Sodium Chloride Mini Bag 100 ML IVPB SCH ×2 (09:14→17:59)
[2018-10-04] MEDS: Aspirin Enteric Coated 81 MG Tablet PO SCH (09:14)
[2018-10-04] MEDS: Acetaminophen 325 MG TABLET PO PRN (09:25)
--- NOTE | 2018-10-04 15:23 | IR Procedure Note ---
Date of procedure: 10/04/18 Consent Obtained: Verbal consent, Written consent Timeout: Correct patient and procedure verified, Correct site verified, Time out performed, Skin prep completed Local anesthetic: Lidocaine 1% Indications: Right pleural effusion Procedure Performed: Right thoracentesis Was there an personal injury legal assistant present: Yes Power Digger Operator: Stevo Boo Site/Technique: US guided right thoracentesis Results/Findings: thoracentesis performed Estimated blood loss (cc): 1 Complications: None; Tolerated procedure well Post Procedure Treatment Plan: Continue inpatient care Specimen: serous pleural fluid
--- NOTE | 2018-10-04 15:25 | Electrocardiograph Report ---
[place] [id number] Test Date: 2018-10-03 Pat Name: Ike Esquivel Department: EXAM25 Room: 2A Gender: M Dioramist: : 1940 Requested By: Juan Manuel Haskins Order Number: [id number] Reading MD: Tapan Deleon Measurements Intervals [place] Rate: 70 P: 29 ND: 156 QRS: 22 QRSD: 112 T: QT: 447 QTc: 483 Interpretive Statements Sinus rhythm Diffuse T wave changes Electronically Signed On 10-04-2018 15:24:31 EDT by Tapan Deleon
[2018-10-04] MEDS ORDERED: *HR* Dextrose 50 % in Water (Syg) 50 ML SYRINGE IVP PRN (19:57)
[2018-10-04] MEDS ORDERED: D5% in Water 1,000 ML IVC PRN (19:57)
[2018-10-04] MEDS ORDERED: Dextrose Gel 15 GM/37.5 ML TUBE PO PRN ×2 (19:57)
[2018-10-04] MEDS: Insulin LISPRO 300 UNITS/3 ML VIAL SQ SCH (20:59)
[2018-10-04] MEDS: traZODone 50 MG TABLET PO PRN (22:37)
[2018-10-04] MEDS: *HR* HYDROcodone/Acet 5/325 mg TABLET PO PRN (22:40)
[2018-10-05 05:23] LABS: Hematocrit 28.5 % (37.5-50.1); Hemoglobin 8.7 g/dL (12.9-16.9); Mean Corpuscular HGB Conc 30.5 g/dL (31.6-35.5); Mean Corpuscular Hemoglobin 30.3 pg (28.0-33.3); Mean Corpuscular Volume 99.3 fL (83.0-100.0); Mean Platelet Volume 10.1 fL (9.4-12.4); Red Blood Count 2.87 M/mcL (4.19-5.50)
[2018-10-05 05:25] LABS: Immature Platelets 4.1 % (1.1-6.1)
[2018-10-05 05:42] LABS: Calcium 8.2 mg/dL (8.6-10.3); Potassium 4.8 mEq/L (3.5-5.1)
[2018-10-05] MEDS: Piperacillin/Tazobactam 3.375 GM in 0.9 % Sodium Chloride Mini Bag 100 ML IVPB SCH ×2 (05:58→18:50)
[2018-10-05] MEDS: *HR* Heparin 5,000 UNIT/ML VIAL SQ SCH ×2 (05:59→18:00)
[2018-10-05] MEDS: Aspirin Enteric Coated 81 MG Tablet PO SCH (09:19)
[2018-10-05] MEDS: Gabapentin 100 MG CAPSULE PO SCH ×3 (09:19→20:08)
[2018-10-05] MEDS: Calcium Acetate 667 MG CAPSULE PO SCH ×3 (09:19→17:20)
[2018-10-05] MEDS: Venlafaxine XR (24 HR) 150 MG CAP.ER.24H PO SCH (09:19)
[2018-10-05] MEDS: *HR* HYDROcodone/Acet 5/325 mg TABLET PO PRN ×3 (09:22→23:25)
[2018-10-05] MEDS ORDERED: *HR* Heparin 10,000 UNIT/10 ML VIAL IV PRN (12:40)
[2018-10-05] MEDS ORDERED: 0.9 % Sodium Chloride 250 ML IVC PRN (12:40)
[2018-10-05] MEDS ORDERED: 0.9 % Sodium Chloride 1,000 ML PRIME SCH (12:45)
[2018-10-05] MEDS ORDERED: hydrOXYzine pamoate 25 MG CAPSULE PO PRN (13:05)
--- NOTE | 2018-10-05 14:15 | Pulmonology Consult Note ---
Date of Encounter: 10/05/18 Time of Encounter: 14:35 Assessment and Plan (1) Pleural effusion Status: Resolved I have seen and examined the patient during dialysis and explained to him about pleural effusion which is most likely secondary to his underlying renal disease. Patient has thoracentesis according to him to ice and he feels symptomatically better. We did discuss possibility of Pleurx pleural catheter placement, however with his CT chest, there is evidence of some loculation and that could be a contraindication for Pleurx pleural catheter. Intermittent thoracentesis for symptomatic relief is recommended and thank you for consultation. Please call for any questions. (2) ESRD (end stage renal disease) on dialysis Status: Chronic History of Present Illness Consult date: 10/05/18 Requesting physician: Rishabh Walter Reason for consult: pleural effusion Chief complaint: Shortness of breath History of present illness: This is a very pleasant 78 year old male with ESRD on HD and multiple other medical problems who came to the hospital with shortness of breath and alter men shahid status and he is feeling better after he had HD and also already had thoracentesis by IR. Patient stated he had previously about 2 weeks ago his effusion was drained and he does feel better after the intervention. He denies any significant productive cough, wheezing or hemoptysis. He is on HD and denies any fever or chills and he has no smoking history. He denies any other symptoms at this time. Past Med Surg Social Fam HX - Past Medical History Medical history: aortic aneurysm, arthritis, coronary artery disease, diabetes, dialysis, hyperlipidemia, hypertension, renal disease Additional medical history: BLADDER NECK CONTRACTURE, SQUAMOUS CELL CANCER. 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), triple bypass - Social History Smoking Status: Former smoker Smokeless Tobacco Status: No Alcohol use: none Drug use: none - Family History Father Adopted: No Family Member Ethnicity: Non- Living Status: Hx Family Cardiac Disorders: Yes ([place]) Mother Adopted: No Family Member Ethnicity: Non- Living Status: Hx Family Cancer: Yes Brother Family Member Ethnicity: Non- Living Status: Still Living Sister Adopted: No Family Member Ethnicity: Non- Living Status: Still Living Hx Family Cardiac Disorders: Yes Hx Family Respiratory Disorders: No Hx Family Cancer: Yes Hx Family GI Disorders: No Hx Family Endocrine Disorder: Yes Hx Family Neuromuscular Disorders: No Hx Family Neurologic Disorders: No Hx Family HEENT Disorders: No Hx Family Autoimmune Disorders: No Medications and Allergies Clopidogrel [Plavix] 75 mg PO HS 01/15/18 [History] Venlafaxine XR (24 HR) [Effexor Xr] 150 mg PO DAILY 01/15/18 [History] Trazodone HCl 100 mg PO HS PRN 01/31/18 [History] Calcium Acetate [Phos-LO] 1,334 mg PO TIDWM 07/03/18 [History] Nitroglycerin [Nitrostat] 0.4 mg SL Q5M PRN 07/04/18 [History] Aspirin [Lo-Dose Aspirin EC] 81 mg PO DAILY 08/23/18 [History] Atorvastatin Calcium [Lipitor] 20 mg PO HS 08/23/18 [History] Metoprolol Succinate 200 mg PO DAILY #0 08/24/18 [Rx] Ondansetron ODT [Zofran ODT] 4 mg SL Q6HR PRN #20 tab.rapdis 08/24/18 [Rx] Acetaminophen [Tylenol] 650 mg PO Q4H PRN 09/22/18 [History] Gabapentin [Neurontin] 100 mg PO TID 10/05/18 [History] Tramadol HCl [Ultram] 50 mg PO BID PRN 10/05/18 [History] Levofloxacin [Levaquin] 500 mg PO ONCE #1 tablet 10/07/18 [Rx] Allergy/AdvReac Type Severity Reaction Status Date / Time No Known Allergies Allergy Verified 08/30/18 18:09 All Systems: The remainder of the systems were reviewed and are negative Physical Examination Vital Signs: Vital Signs, Last 4 Hours Temp Pulse Resp BP Pulse Ox 10/05/18 11:58 98.2 F 77 16 124/72 94 General appearance: no acute distress Eyes: nonicteric ENT: oropharynx moist Neck: supple Effort: normal Inspection: normal Auscultation: left: clear, right: diminished breath sounds Percussion: left: not dull, right: dull Cardiovascular: regular rate and rhythm, murmur noted Gastrointestinal: normoactive bowel sounds, non-distended Extremities: no cyanosis, edema normal mental status, non-focal exam mood appropriate Results - Laboratory Findings CBC and BMP: 10/07/18 06:02 10/07/18 06:02 PT/INR, D-dimer PT 14.4 Seconds (9.4-12.1) H 10/03/18 16:17 Abnormal lab findings: Abnormal lab results WBC 4.1 K/mcL (4.3-11.1) L 10/04/18 06:21 RBC 2.87 M/mcL (4.19-5.50) L 10/05/18 05:10 Hgb 8.7 g/dL (12.9-16.9) L 10/05/18 05:10 Hct 28.5 % (37.5-50.1) L 10/05/18 05:10 MCV 100.6 fL (83.0-100.0) H 10/04/18 06:21 MCHC 30.5 g/dL (31.6-35.5) L 10/05/18 05:10 RDW 17.0 % (11.5-14.5) H 10/05/18 05:10 Plt Count 80 K/mcL (140-400) L 10/05/18 05:10 0.7 K/mcL (0.0-0.6) H 10/04/18 06:21 PT 14.4 Seconds (9.4-12.1) H 10/03/18 16:17 Chloride 96 mEq/L (98-107) L 10/03/18 16:17 Carbon Dioxide 31 mEq/L (23-29) H 10/04/18 06:21 BUN 34 mg/dL (8-23) H 10/05/18 05:10 7.79 mg/dL (0.70-1.30) H 10/05/18 05:10 Est GFR ( Amer) 8 (> 60) L 10/05/18 05:10 Est GFR (Non-Af Amer) 7 (> 60) L 10/05/18 05:10 4 (6-26) L 10/05/18 05:10 Glucose 173 mg/dL (70-105) H 10/03/18 16:17 POC Glucose 137 mg/dL (70-99) H 10/04/18 23:37 Calcium 8.2 mg/dL (8.6-10.3) L 10/05/18 05:10 Phosphorus 5.4 mg/dL (2.7-4.5) H 10/04/18 06:21 105 Units/L (34-104) H 10/04/18 06:21 3.0 g/dL (3.5-5.7) L 10/04/18 06:21 4.3 g/dL (2.4-3.5) H 10/04/18 06:21 0.7 (1.1-2.2) L 10/04/18 06:21 - Microbiology Findings Microbiology Findings: Microbiology, Last 48 Hours 10/03/18 16:38 Blood Culture - Preliminary Peripheral Venipuncture Culture is incubating and being continuously monitored for growth. Final report to follow. 10/03/18 16:38 Blood Culture - Preliminary Peripheral Venipuncture Culture is incubating and being continuously monitored for growth. Final report to follow. - Diagnostic Findings Chest x-ray: report reviewed, image reviewed - Clinical Findings Intake & Output: Intake & Output 10/04/18 10/05/18 10/05/18 23:59 07:59 15:59 Intake Total 100 / 450 100 / 440 340 / 440 Balance 100 / 450 100 / 440 340 / 440 Weight 102.9 kg Consult Discharge Plan - Plan Referrals: NONE,PCP [Primary Care Provider] - Prescriptions: Levofloxacin [Levaquin] 500 mg PO ONCE #1 tablet
[2018-10-05] MEDS: Acetaminophen 325 MG TABLET PO PRN (14:19)
[2018-10-05] MEDS ORDERED: 0.9 % Sodium Chloride 1,000 ML ONE (15:44)
[2018-10-05] MEDS ORDERED: Vancomycin 500 MG in 0.9 % Sodium Chloride Mini Bag 100 ML IVPB ONE (16:00)
[2018-10-05] MEDS: Metoprolol XL (24 HR) Succ 50 MG TAB.ER.24H PO SCH (16:06)
[2018-10-05] MEDS: Insulin LISPRO 300 UNITS/3 ML VIAL SQ SCH ×2 (17:42→20:18)
--- NOTE | 2018-10-05 18:54 | Internal Med Progress Note ---
Hospitalist Progress Note - Encounter Date of Encounter: 10/05/18 Time of Encounter: 11:00 - Subjective Interval History: Patient is 78-year-old male with past medical history significant for ESRD on HD, HFrEF 45%, who presented with SOB and found on CXR to have recurrent R>L pleural effusions as well as RML/RLL opacity confirmed on CT, concerning for pneumonia. Patient now status post thoracentesis per IR which was transudative - Exam Vitals: Temp Pulse Resp BP Pulse Ox 98 F 77 18 138/62 94 10/05/18 16:05 10/05/18 11:58 10/05/18 16:05 10/05/18 16:05 10/05/18 11:58 Exam: Gen.: Nonacute distress, alert and oriented 3 ENT: Mucosal membranes moist Respiratory: Lungs are clear to auscultation bilaterally without any wheezing rhonchi or rales Cardiovascular: Normal S1 and S2 regular rate rhythm no murmurs rubs or gallops Abdomen: Soft, nontender and nondistended with positive bowel sounds Extremities: No lower extremity edema Skin: Normal color - Assessment and Plan (1) Pneumonia Current Visit: Yes Status: Acute (2) Pleural effusion Current Visit: Yes Status: Resolved Assessment and Plan: Chest x-ray showed small-moderate right pleural effusion Patient with recurrent right-sided pleural effusions S/p thoracentesis for R pleural effusion on 09/22/18 Patient now status post thoracentesis per IR which was transudative Pulmonology consulted with recommendations for symptomatic thoracentesis as needed as per her next contraindication due to patient's loculated effusion (3) ESRD (end stage renal disease) on dialysis Current Visit: Yes Status: Chronic (4) Hospital-acquired pneumonia Current Visit: No Status: Acute Assessment and Plan: Continue IV vancomycin and Zosyn (5) CAD (coronary artery disease) Current Visit: No Status: Chronic Assessment and Plan: CAD s/p CABG: ASA, plavix, statin and beta claudia Patient hould not also with ischemic cardiomyopathy and by management per hemodialysis - Time Spent with Patient Total time spent is greater than 50% in coordination of care (as documented) at patient's floor/unit and/or counseling patient: Internal Medicine: Result - Labs CBC & Chem 7: 10/05/18 05:10 10/05/18 05:10 Labs: Short CBC 10/05/18 Range/Units 05:10 WBC 4.6 (4.3-11.1) K/mcL Hgb 8.7 L (12.9-16.9) g/dL Hct 28.5 L (37.5-50.1) % Plt Count 80 L (140-400) K/mcL BMP 10/05/18 05:10 Sodium 136 Potassium 4.8 Chloride 98 Carbon Dioxide 28 BUN 34 H Creatinine 7.79 H Glucose 101 Calcium 8.2 L - ABG Interpretation ABG results: PT/INR, D-dimer PT 14.4 Seconds (9.4-12.1) H 10/03/18 16:17 Consult Discharge Plan - Plan Referrals: NONE,PCP [Primary Care Provider] - (1) Pneumonia Qualifiers: (5) CAD (coronary artery disease) Qualifiers: Coronary Disease-Associated Artery/Lesion type: bypass graft [place] vs. transplanted heart: [place] heart Associated angina: without angina Qualified Code(s): I25.810 - Atherosclerosis of coronary artery bypass graft(s) without angina pectoris
--- NOTE | 2018-10-05 22:33 | Nephrology Consult Note ---
Date of Encounter: 10/05/18 Time of Encounter: 12:00 Assessment and Plan (1) ESRD (end stage renal disease) on dialysis Current Visit: Yes Status: Chronic Hd planned today with UF as tolerated Renal diet advised Fluid restriction advised (2) Pneumonia Current Visit: Yes Status: Acute Abx per primary team and pulm Qualifiers: Pneumonia type: due to unspecified organism Laterality: unspecified laterality Qualified Code(s): J18.9 - Pneumonia, unspecified organism (3) Altered mental status Current Visit: Yes Status: Resolved Per primary team Qualifiers: Altered mental status type: transient alteration of awareness Qualified Code(s): R40.4 - Transient alteration of awareness (4) Pleural effusion Current Visit: Yes Status: Resolved per primary team History of Present Illness - Reason for Consult Consult date: 10/05/18 end stage renal disease Requesting physician: Calin Laguna - History of Present Illness 78 y o male with PMH of DM, HTN, CAD s/p CABG and ESRD on HD admitted with SOB and AMS after HD. Pt was recently in the hospiatl for PNA with thoracentesis and now being treated once more for PNA with thoracentesis. Pt seen and examined still somewhat confused. No family at bedside. Past Med Surg Social Fam HX - Past Medical History Medical history: aortic aneurysm, arthritis, coronary artery disease, diabetes, dialysis, hyperlipidemia, hypertension, renal disease Additional medical history: BLADDER NECK CONTRACTURE, SQUAMOUS CELL CANCER. 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), triple bypass - Social History Smoking Status: Former smoker Smokeless Tobacco Status: No Alcohol use: none Drug use: none - Family History Father Adopted: No Family Member Ethnicity: Non- Living Status: Hx Family Cardiac Disorders: Yes ([place]) Mother Adopted: No Family Member Ethnicity: Non- Living Status: Hx Family Cancer: Yes Brother Family Member Ethnicity: Non- Living Status: Still Living Sister Adopted: No Family Member Ethnicity: Non- Living Status: Still Living Hx Family Cardiac Disorders: Yes Hx Family Respiratory Disorders: No Hx Family Cancer: Yes Hx Family GI Disorders: No Hx Family Endocrine Disorder: Yes Hx Family Neuromuscular Disorders: No Hx Family Neurologic Disorders: No Hx Family HEENT Disorders: No Hx Family Autoimmune Disorders: No Medications and Allergies Clopidogrel [Plavix] 75 mg PO HS 01/15/18 [History] Venlafaxine XR (24 HR) [Effexor Xr] 150 mg PO DAILY 01/15/18 [History] Trazodone HCl 100 mg PO HS PRN 01/31/18 [History] Calcium Acetate [Phos-LO] 1,334 mg PO TIDWM 07/03/18 [History] Nitroglycerin [Nitrostat] 0.4 mg SL Q5M PRN 07/04/18 [History] Aspirin [Lo-Dose Aspirin EC] 81 mg PO DAILY 08/23/18 [History] Atorvastatin Calcium [Lipitor] 20 mg PO HS 08/23/18 [History] Metoprolol Succinate 200 mg PO DAILY #0 08/24/18 [Rx] Ondansetron ODT [Zofran ODT] 4 mg SL Q6HR PRN #20 tab.rapdis 08/24/18 [Rx] Acetaminophen [Tylenol] 650 mg PO Q4H PRN 09/22/18 [History] Gabapentin [Neurontin] 100 mg PO TID 10/05/18 [History] Tramadol HCl [Ultram] 50 mg PO BID PRN 10/05/18 [History] Allergy/AdvReac Type Severity Reaction Status Date / Time No Known Allergies Allergy Verified 08/30/18 18:09 Review of Systems ROS unobtainable: due to mental status Exam - Vital Signs Vital signs: Initial Vital Signs Temp Pulse Resp BP Pulse Ox 98.9 F 69 19 129/71 94 10/03/18 15:56 10/03/18 15:56 10/03/18 15:56 10/03/18 15:56 10/03/18 15:56 Vital Signs - Last 8 Hours Temp Pulse Resp BP Pulse Ox 10/05/18 19:46 98.0 F 93 18 125/68 89 10/05/18 16:05 98 F 18 138/62 10/05/18 15:45 134/93 10/05/18 15:30 114/66 10/05/18 15:15 149/69 10/05/18 15:00 141/66 10/05/18 14:45 140/89 Intake and Output 10/05/18 10/05/18 10/05/18 07:59 15:59 23:59 Intake Total 100 / 1140 940 / 1140 100 / 1140 Output Total 3600 / 3600 Balance 100 / -2460 940 / -2460 -3500 / -2460 Intake: IV Fluids 100 / 300 100 / 300 100 / 300 Zosyn 3.375 GM In 0.9 % Sodium 100 / 100 Chloride (Mini-Bag +) 100 ML @ 25 mls/hr IVPB Q12HR [place] Rx#: [id number] Vancocin 250 MG In 0.9 % Sodium 100 / 100 Chloride 100 ML @ 100 mls/hr IVPB ONCE ONE Rx#:[id number] Vancocin 500 MG In 0.9 % Sodium 100 / 100 Chloride (Mini-Bag +) 100 ML @ 100 mls/hr IVPB ONCE ONE Rx#: [id number] Oral 240 / 240 Intake, Rinseback and Flushes 600 / 600 Output: Total Dialysis (HD) Output 3600 / 3600 Other: Meal Breakfast Percent of Meal Consumed 95% Weight 102.9 kg Blood Glucose* 89 124 146 Hemodialysis Net Fluid Removed 3600 3000 (mL) Patient Weight 10/05/18 23:59 Weight 102.9 kg - General Appearance General appearance: chronically ill, fatigue EENT: ATNC, mucous membranes moist Neck: no JVD, supple Additional Comments: good areation ant bilat Cardiology: no edema, normal S1, normal S2 Gastrointestinal: no tenderness, no guarding Integumentary: no rash, warm and dry Neurologic: confused Musculoskeletal: no deformities Psychiatric: mood/affect appropriate, cooperative Results - Lab Results 10/06/18 06:13 10/06/18 06:13 Consult Discharge Plan - Plan Referrals: NONE,PCP [Primary Care Provider] -
[2018-10-05] MEDS: traZODone 50 MG TABLET PO PRN (23:26)
[2018-10-06] MEDS: Piperacillin/Tazobactam 3.375 GM in 0.9 % Sodium Chloride Mini Bag 100 ML IVPB SCH ×2 (05:11→17:17)
[2018-10-06] MEDS: *HR* Heparin 5,000 UNIT/ML VIAL SQ SCH ×2 (05:12→17:17)
[2018-10-06 06:31] LABS: Hemoglobin 8.8 g/dL (12.9-16.9); Mean Corpuscular Volume 99.7 fL (83.0-100.0)
[2018-10-06 06:33] LABS: Hematocrit 28.8 % (37.5-50.1); Immature Platelets 3.8 % (1.1-6.1); Mean Corpuscular HGB Conc 30.6 g/dL (31.6-35.5); Mean Corpuscular Hemoglobin 30.4 pg (28.0-33.3); Red Blood Count 2.89 M/mcL (4.19-5.50); Red Cell Distribution Width 16.7 % (11.5-14.5)
[2018-10-06] MEDS: Insulin LISPRO 300 UNITS/3 ML VIAL SQ SCH ×4 (07:50→20:36)
[2018-10-06 08:27] LABS: Calcium 7.6 mg/dL (8.6-10.3); Potassium 4.4 mEq/L (3.5-5.1)
[2018-10-06] MEDS: *HR* HYDROcodone/Acet 5/325 mg TABLET PO PRN ×2 (08:34→20:35)
[2018-10-06] MEDS: Metoprolol XL (24 HR) Succ 50 MG TAB.ER.24H PO SCH (08:34)
[2018-10-06] MEDS: Gabapentin 100 MG CAPSULE PO SCH ×3 (08:34→20:35)
[2018-10-06] MEDS: Aspirin Enteric Coated 81 MG Tablet PO SCH (08:34)
[2018-10-06] MEDS: Venlafaxine XR (24 HR) 150 MG CAP.ER.24H PO SCH (08:34)
[2018-10-06] MEDS: Calcium Acetate 667 MG CAPSULE PO SCH ×3 (08:34→17:16)
--- NOTE | 2018-10-06 09:23 | Internal Med Progress Note ---
Hospitalist Progress Note - Encounter Date of Encounter: 10/06/18 Time of Encounter: 11:00 - Subjective Interval History: Patient is a 78-year-old male who presents due to shortness of breath found to have recurrent R>L pleural effusions as well as RML/RLL opacity confirmed on CT, concerning for pneumonia. Patient now status post thoracentesis of right pleural effusion Patient requiring 4-6 L of O2 supplementation this morning - Exam Vitals: Temp Pulse Resp BP Pulse Ox 97.8 F 67 16 114/70 100 10/06/18 06:57 10/06/18 06:57 10/06/18 06:57 10/06/18 06:57 10/06/18 06:57 Exam: Gen.: Nonacute distress, alert and oriented 3 ENT: Mucosal membranes moist Respiratory: Lungs are clear to auscultation bilaterally without any wheezing rhonchi or rales Cardiovascular: Normal S1 and S2 regular rate rhythm no murmurs rubs or gallops Abdomen: Soft, nontender and nondistended with positive bowel sounds Extremities: No lower extremity edema Skin: Normal color - Assessment and Plan (1) Hospital-acquired pneumonia Current Visit: No Status: Acute Assessment and Plan: Patient afebrile and without leukocytosis but required 46 L of supplemental oxygenation this morning. Patient just recently completed a course of oral antibiotics with Levaquin on 09/29/18 for pneumonia Will continue treatment for hospital-acquired pneumonia with IV vancomycin and IV Zosyn; respiratory panel pending (2) Pleural effusion Current Visit: Yes Status: Resolved Assessment and Plan: Chest x-ray showed small-moderate right pleural effusion Patient with recurrent right-sided pleural effusions S/p thoracentesis for R pleural effusion on 09/22/18 Patient now status post thoracentesis per IR which was transudative Patient still requiring 4-6 L of supplemental oxygenation Pulmonology consulted with recommendations for symptomatic thoracentesis as needed as per her next contraindication due to patient's loculated effusion (3) ESRD (end stage renal disease) on dialysis Current Visit: Yes Status: Chronic Assessment and Plan: Patient on dialysis three times per week Nephrology following for management (4) CAD (coronary artery disease) Current Visit: No Status: Chronic Assessment and Plan: CAD s/p CABG Continue home ASA, plavix, statin and beta claudia DVT Prophylaxis: Heparin subcutaneous - Time Spent with Patient Total time spent is greater than 50% in coordination of care (as documented) at patient's floor/unit and/or counseling patient: Internal Medicine: Result - Labs CBC & Chem 7: 10/06/18 06:13 10/06/18 06:13 Labs: Short CBC 10/06/18 Range/Units 06:13 WBC 4.5 (4.3-11.1) K/mcL Hgb 8.8 L (12.9-16.9) g/dL Hct 28.8 L (37.5-50.1) % Plt Count 83 L (140-400) K/mcL BMP 10/06/18 06:13 Sodium 135 L Potassium 4.4 Chloride 101 Carbon Dioxide 31 H BUN 20 Creatinine 5.50 H Glucose 92 Calcium 7.6 L - ABG Interpretation ABG results: PT/INR, D-dimer PT 14.4 Seconds (9.4-12.1) H 10/03/18 16:17 Consult Discharge Plan - Plan Referrals: NONE,PCP [Primary Care Provider] - (4) CAD (coronary artery disease) Qualifiers: Coronary Disease-Associated Artery/Lesion type: bypass graft [place] vs. transplanted heart: [place] heart Associated angina: without angina Qualified Code(s): I25.810 - Atherosclerosis of coronary artery bypass graft(s) without angina pectoris
--- NOTE | 2018-10-06 11:03 | Nephrology Progress Note ---
Date of Encounter: 10/06/18 Time of Encounter: 11:01 - Assessment and Plan (1) ESRD (end stage renal disease) on dialysis Current Visit: Yes Status: Chronic Plan for HD tomorrow Continue renal diet Avoid nephrotoxins if possible (2) Pleural effusion Current Visit: Yes Status: Resolved per primary team (3) Anemia Current Visit: No Status: Chronic Hgb 8.8-stable Goal hgb 10-11 Transfuse per parameters Qualifiers: Anemia type: due to chronic kidney disease Chronic kidney disease stage: unspecified stage Qualified Code(s): N18.9 - Chronic kidney disease, unspecified; D63.1 - Anemia in chronic kidney disease Subjective Principal diagnosis: ESRD, pleural effusion Interval history: Patient seen and examined. Doing well, no complaints this morning Objective - Vital Signs Vital signs: Vital Signs Temp Pulse Resp BP Pulse Ox 10/06/18 06:57 97.8 F 67 16 114/70 100 10/06/18 04:37 98.9 F 68 17 114/73 98 10/06/18 00:26 97.9 F 68 17 100/60 100 10/05/18 19:46 98.0 F 93 18 125/68 89 10/05/18 16:05 98 F 18 138/62 10/05/18 15:45 134/93 10/05/18 15:30 114/66 10/05/18 15:15 149/69 10/05/18 15:00 141/66 10/05/18 14:45 140/89 10/05/18 14:30 138/76 10/05/18 14:15 146/81 10/05/18 14:00 136/72 10/05/18 13:45 142/78 10/05/18 13:30 131/79 10/05/18 13:15 150/80 10/05/18 13:00 160/103 10/05/18 12:45 97.9 F 18 162/105 10/05/18 11:58 98.2 F 77 16 124/72 94 Intake and Output 10/05/18 10/06/18 10/06/18 23:59 07:59 15:59 Intake Total 200 / 1240 Output Total 3600 / 3600 0 / 0 Balance -3400 / -2360 0 / 0 Intake: IV Fluids 200 / 400 Zosyn 3.375 GM In 0.9 % Sodium 100 / 200 Chloride (Mini-Bag +) 100 ML @ 25 mls/hr IVPB Q12HR [place] Rx#: [id number] Vancocin 500 MG In 0.9 % Sodium 100 / 100 Chloride (Mini-Bag +) 100 ML @ 100 mls/hr IVPB ONCE ONE Rx#: [id number] Output: Urine 0 / 0 Total Dialysis (HD) Output 3600 / 3600 Other: Blood Glucose* 146 82 Hemodialysis Net Fluid Removed 3000 (mL) - General Appearance General appearance: Present: well-developed, well-nourished EENT: Present: ATNC, mucous membranes moist, hearing intact, vision intact Neck: Present: supple Respiratory: Present: clear Cardiology: Present: no edema, normal S1, normal S2 Gastrointestinal: Present: no tenderness, no guarding Integumentary: Present: warm and dry Neurologic: Present: alert and oriented x3 Psychiatric: Present: mood/affect appropriate - Lab 10/06/18 06:13 10/06/18 06:13 Most recent lab results 10/06/18 06:13 Calcium 7.6 L Consult Discharge Plan - Plan Referrals: NONE,PCP [Primary Care Provider] -
[2018-10-06] MEDS ORDERED: hydrOXYzine pamoate 25 MG CAPSULE PO ONE (12:58)
[2018-10-06 17:56] LABS: Adenovirus Not Detected (Not Detect); Bordetella Pertussis Not Detected (Not Detect); Chlamydophila pneumoniae Not Detected (Not Detect); Coronavirus 229E Not Detected (Not Detect); Coronavirus HKU1 Not Detected (Not Detect); Coronavirus NL63 Not Detected (Not Detect); Coronavirus OC43 Not Detected (Not Detect); Human Metapneumovirus Not Detected (Not Detect); Human Rhinovirus/Enterovirus Not Detected (Not Detect); Influenza A Subtype 2009 H1 Not Detected (Not Detect); Influenza A Untypeable Not Detected (Not Detect); Influenza B Not Detected (Not Detect); Mycoplasma pneumoniae Not Detected (Not Detect); Parainfluenza Virus 1 Not Detected (Not Detect); Parainfluenza Virus 2 Not Detected (Not Detect); Parainfluenza Virus 3 Not Detected (Not Detect); Parainfluenza Virus 4 Not Detected (Not Detect); Respiratory Syncytial Virus Not Detected (Not Detect)
[2018-10-06] MEDS: traZODone 50 MG TABLET PO PRN (20:35)
[2018-10-07] MEDS: Piperacillin/Tazobactam 3.375 GM in 0.9 % Sodium Chloride Mini Bag 100 ML IVPB SCH ×2 (05:22→16:54)
[2018-10-07] MEDS: *HR* Heparin 5,000 UNIT/ML VIAL SQ SCH ×2 (05:23→16:54)
[2018-10-07] MEDS: *HR* HYDROcodone/Acet 5/325 mg TABLET PO PRN ×2 (05:37→13:05)
[2018-10-07 06:14] LABS: Hematocrit 32.9 % (37.5-50.1); Mean Corpuscular HGB Conc 30.4 g/dL (31.6-35.5); Mean Corpuscular Hemoglobin 30.4 pg (28.0-33.3); Mean Platelet Volume 10.2 fL (9.4-12.4); Red Blood Count 3.29 M/mcL (4.19-5.50); Red Cell Distribution Width 16.6 % (11.5-14.5)
[2018-10-07 06:15] LABS: Platelet Count 75 K/mcL (140-400)
[2018-10-07 06:36] LABS: Calcium 8.7 mg/dL (8.6-10.3)
[2018-10-07] MEDS: Insulin LISPRO 300 UNITS/3 ML VIAL SQ SCH ×3 (07:20→16:54)
[2018-10-07] MEDS: Calcium Acetate 667 MG CAPSULE PO SCH ×3 (07:51→16:18)
[2018-10-07] MEDS: Aspirin Enteric Coated 81 MG Tablet PO SCH (07:51)
[2018-10-07] MEDS: Venlafaxine XR (24 HR) 150 MG CAP.ER.24H PO SCH (07:51)
[2018-10-07] MEDS: Gabapentin 100 MG CAPSULE PO SCH ×2 (07:51→17:13)
[2018-10-07] MEDS ORDERED: 0.9 % Sodium Chloride 250 ML IVC PRN (08:04)
[2018-10-07] MEDS ORDERED: *HR* Heparin 10,000 UNIT/10 ML VIAL IV PRN (08:04)
[2018-10-07] MEDS ORDERED: 0.9 % Sodium Chloride 1,000 ML PRIME SCH (08:15)
--- NOTE | 2018-10-07 10:50 | Discharge Summary ---
Orders not resulted at time of discharge: Pending orders 10/03/18 16:17 Drug Screen, Urine [UCHEM] Stat Urinalysis Reflex Cult & Micro [URIN] Stat 10/03/18 16:38 Culture,Blood [BC] Stat 10/04/18 00:29 Cell Count w Diff, Pleural Fld [BF] Routine 10/04/18 07:46 LDH,Pleural Fluid [BF] Routine 10/04/18 07:47 Culture,Body Fluid [RM] Routine Gram Stain [RM] Routine Total Protein,Pleural Fluid [BF] Routine pH,Pleural Fluid [BF] Routine 10/04/18 14:52 Surgical Pathology [PTH] Routine 10/06/18 09:17 Legionella Antigen [RM] Routine Streptococcal pneumoniae urin antigen [S. Pneumoniae Antigen] [RM] Routine 10/08/18 04:00 Basic Metabolic Panel AM 0400 CBC no Diff [Complete Blood Count w/o Diff] [HEME] AM 04010/09/18 04:00 Basic Metabolic Panel AM 0400 CBC no Diff [Complete Blood Count w/o Diff] [HEME] AM 04010/10/18 04:00 Basic Metabolic Panel AM 0400 CBC no Diff [Complete Blood Count w/o Diff] [HEME] AM 04010/11/18 04:00 Basic Metabolic Panel AM 0400 CBC no Diff [Complete Blood Count w/o Diff] [HEME] AM 0400 10/12/18 04:00 Basic Metabolic Panel AM 0400 CBC no Diff [Complete Blood Count w/o Diff] [HEME] AM 0400 10/13/18 04:00 Basic Metabolic Panel AM 0400 CBC no Diff [Complete Blood Count w/o Diff] [HEME] AM 0400 10/14/18 04:00 Basic Metabolic Panel AM 0400 CBC no Diff [Complete Blood Count w/o Diff] [HEME] AM 0400 Date of Encounter: 10/07/18 Time of Encounter: 11:00 - Discharge Diagnosis (1) Hospital-acquired pneumonia Priority: Primary Status: Acute (2) Pleural effusion Priority: Primary Status: Resolved (3) ESRD (end stage renal disease) on dialysis Priority: Secondary Status: Chronic (4) CAD (coronary artery disease) Priority: Secondary Status: Chronic Qualifiers: Coronary Disease-Associated Artery/Lesion type: bypass graft [place] vs. transplanted heart: [place] heart Associated angina: without angina Qualified Code(s): I25.810 - Atherosclerosis of coronary artery bypass graft(s) without angina pectoris Hospital course: Patient is a 78-year-old male with past medical history significant for ESRD on dialysis, HTN, DM, CAD s/p CABG (2017) who presents with complaints of shortness of breath and AMS following dialysis treatment. Patient stated that after his treatment he became short of breath. He reports of being treated for pneumonia as an inpatient a couple times in the past 6-8 weeks and had a thoracentesis in August 2018 for pleural effusion. In the ER, patient was afebrile with normal heart rate, and saturating at 90% on 6L of O2. Labs significant for Cr of 5.21, platelets of 87 (baseline), Hgb 9.6 (baseline), no leukocytosis or lactic acidosis. Head CT shows diffuse atrophy, suggesting chronic microvascular ischemia. Chest x-ray shows right opacity and pleural effusion. Patient was started on IV vancomycin and zosyn and admitted to medical surgical floor for treatment of pneumonia and right pleural effusion. During patients hospital stay his rash of breath improved status post thoracentesis of right pleural effusion. Patient was also treated for right middle lobe/right lower lobe pneumonia with IV vancomycin and IV Zosyn. Patient currently on baseline O2 requirements. Pulmonology was consulted and did not recommend Pleurx catheter due to complexity of pleural effusion but recommended repeat thoracentesis as needed. Patient will be discharged to complete a one-day course of Levaquin for pneumonia and to follow-up with primary care provider. - Time Spent with Patient Total time spent providing and/or coordinating discharge services: Time spent: Less than 30 minutes - Discharge Medications Prescriptions: New Levofloxacin [Levaquin] 500 mg PO ONCE #1 tablet Continued Venlafaxine XR (24 HR) [Effexor Xr] 150 mg PO DAILY Clopidogrel [Plavix] 75 mg PO HS Trazodone HCl 100 mg PO HS PRN PRN Reason: Sleep Calcium Acetate [Phos-LO] 1,334 mg PO TIDWM Nitroglycerin [Nitrostat] 0.4 mg SL Q5M PRN PRN Reason: Chest Pain Aspirin [Lo-Dose Aspirin EC] 81 mg PO DAILY Atorvastatin Calcium [Lipitor] 20 mg PO HS Metoprolol Succinate 200 mg PO DAILY #0 Ondansetron ODT [Zofran ODT] 4 mg SL Q6HR PRN #20 tab.rapdis PRN Reason: Nausea And Vomiting Acetaminophen [Tylenol] 650 mg PO Q4H PRN PRN Reason: Pain Gabapentin [Neurontin] 100 mg PO TID Tramadol HCl [Ultram] 50 mg PO BID PRN PRN Reason: Pain Home Medications: Clopidogrel [Plavix] 75 mg PO HS 01/15/18 [History] Venlafaxine XR (24 HR) [Effexor Xr] 150 mg PO DAILY 01/15/18 [History] Trazodone HCl 100 mg PO HS PRN 01/31/18 [History] Calcium Acetate [Phos-LO] 1,334 mg PO TIDWM 07/03/18 [History] Nitroglycerin [Nitrostat] 0.4 mg SL Q5M PRN 07/04/18 [History] Aspirin [Lo-Dose Aspirin EC] 81 mg PO DAILY 08/23/18 [History] Atorvastatin Calcium [Lipitor] 20 mg PO HS 08/23/18 [History] Metoprolol Succinate 200 mg PO DAILY #0 08/24/18 [Rx] Ondansetron ODT [Zofran ODT] 4 mg SL Q6HR PRN #20 tab.rapdis 08/24/18 [Rx] Acetaminophen [Tylenol] 650 mg PO Q4H PRN 09/22/18 [History] Gabapentin [Neurontin] 100 mg PO TID 10/05/18 [History] Tramadol HCl [Ultram] 50 mg PO BID PRN 10/05/18 [History] Levofloxacin [Levaquin] 500 mg PO ONCE #1 tablet 10/07/18 [Rx] Allergies/Adverse Reactions: Allergy/AdvReac Type Severity Reaction Status Date / Time No Known Allergies Allergy Verified 08/30/18 18:09 Date of admission: 10/04/18 11:58 Primary care physician: PCP NONE Consults: 10/03/18 22:09 Consult to Nutrition [CONS] Routine Comment: Consulting Provider: NUTRITION Reason for Dietary Consult: PO Supplementation Consult to Actuarial Assistant [CONS] Routine Reason for SW Consult: discharge planning 10/04/18 00:25 Consult to Interventional Radiology [CONS] Routine Consulting Provider: Radiology Interventional Cols Reason for Consult: Patient with recurrent pleural effusion on right, please drain and send results for pathology, cytology, gram stain, and culture Call Completed: No 05/07/19 01:06 Consult to Nephrology [CONS] Routine Consulting Provider: Kidney Faye/AGUSTINA/TRAN/SHRADDHA Reason for Consult: Dialysis patient 3 times per week, most recent on Wednesday10/03/18. Creatinine 5.21 in ED. GFR 13. Please set up for dialysis on Wednesday. Call Completed: No 10/04/18 08:25 Consult to Nurse Navigator [CONS] Routine Comment: pn, hd 10/04/18 18:57 Consult to Pulmonology [CONS] Routine Consulting Provider: Pulm Crit Care & Sleep Faye Reason for Consult: abnormal chest CT, recurrent pneumonia, ?interstitial pneumonitis Call Completed: No 10/05/18 12:45 Consult to Dialysis [CONS] ONCE 10/07/18 08:15 Consult to Dialysis [CONS] ONCE - Constitutional Vitals: Temp Pulse Resp BP Pulse Ox 98.8 F 64 17 163/91 97 10/07/18 07:06 10/07/18 07:06 10/07/18 07:06 10/07/18 07:06 10/07/18 07:06 General appearance: Present: A&O X 3, no acute distress, answers questions appropriately Exam: Gen.: Nonacute distress, alert and oriented 3 ENT: Mucosal membranes moist Respiratory: Lungs are clear to auscultation bilaterally without any wheezing rhonchi or rales Cardiovascular: Normal S1 and S2 regular rate rhythm no murmurs rubs or gallops Abdomen: Soft, nontender and nondistended with positive bowel sounds Extremities: No lower extremity edema Skin: Normal color - Patient Status Disposition: Transfer SNF Condition: Fair - Discharge Instructions Follow Up With: NONE,PCP [Primary Care Provider] - Forms: ED Satisfaction Letter
[2018-10-07] MEDS ORDERED: 0.9 % Sodium Chloride 1,000 ML ONE (11:37)
[2018-10-07] MEDS: Metoprolol XL (24 HR) Succ 50 MG TAB.ER.24H PO SCH (13:04)
[2018-10-07] MEDS ORDERED: hydrOXYzine pamoate 25 MG CAPSULE PO ONE (13:11)
--- NOTE | 2018-10-07 13:16 | Nephrology Progress Note ---
Date of Encounter: 10/07/18 Time of Encounter: 13:15 - Assessment and Plan (1) ESRD (end stage renal disease) on dialysis Current Visit: Yes Status: Chronic HD MWF. Renal vitamins. Renal dose medications. Renal diet. Additional dialysis and ultrafiltration as needed. Patient seen on Hemodialysis today. For the patient's tremors will discontinue his Neurontin which can cause myoclonus. (2) Pneumonia Current Visit: Yes Status: Acute Qualifiers: Pneumonia type: due to unspecified organism Laterality: unspecified laterality Qualified Code(s): J18.9 - Pneumonia, unspecified organism (3) Pleural effusion Current Visit: Yes Status: Resolved (4) Altered mental status Current Visit: Yes Status: Resolved Qualifiers: Altered mental status type: transient alteration of awareness Qualified Code(s): R40.4 - Transient alteration of awareness Subjective Principal diagnosis: ESRD, pleural effusion Interval history: The patient was seen and evaluated while he was on dialysis. His biggest complaint was of tremors. He thinks they are getting worse. He denies chest pain, or shortness of breath. His review of systems otherwise is stable. Objective - Vital Signs Vital signs: Vital Signs Temp Pulse Resp BP Pulse Ox 10/07/18 12:24 98.1 F 73 17 146/86 90 10/07/18 11:30 132/85 10/07/18 11:15 138/92 10/07/18 11:00 138/86 10/07/18 10:45 120/75 10/07/18 10:30 138/79 10/07/18 10:15 131/70 10/07/18 10:00 125/79 10/07/18 09:45 146/91 10/07/18 09:30 150/80 10/07/18 09:15 165/86 10/07/18 09:00 156/90 10/07/18 08:45 97.9 F 18 179/71 10/07/18 07:06 98.8 F 64 17 163/91 97 10/07/18 03:41 98.3 F 73 18 148/83 99 10/06/18 23:52 98 F 71 18 121/63 97 10/06/18 19:25 98.3 F 77 18 135/94 90 10/06/18 15:30 98.4 F 69 18 132/59 97 Intake and Output 10/06/18 10/07/18 10/07/18 23:59 07:59 15:59 Intake Total 130 / 470 840 / 840 Balance 130 / 470 840 / 840 Intake: IV Fluids 100 / 200 Zosyn 3.375 GM In 0.9 % Sodium 100 / 200 Chloride (Mini-Bag +) 100 ML @ 25 mls/hr IVPB Q12HR [facility] Rx#: [id number] Oral 30 / 270 240 / 240 Intake, Rinseback and Flushes 600 / 600 Other: Meal Breakfast Percent of Meal Consumed 50% Weight 101.4 kg Blood Glucose* 151 85 88 Hemodialysis Net Fluid Removed 3298 (mL) - General Appearance General appearance: Present: well-developed, well-nourished EENT: Present: ATNC Neck: Present: supple Cardiology: Present: regular rate Integumentary: Present: warm and dry Neurologic: Present: alert and oriented x3 Psychiatric: Present: mood/affect appropriate - Lab 10/07/18 06:02 10/07/18 06:02 Most recent lab results 10/07/18 06:02 Calcium 8.7 Consult Discharge Plan - Plan Referrals: NONE,PCP [Primary Care Provider] - Prescriptions: Levofloxacin [Levaquin] 500 mg PO ONCE #1 tablet
--- NOTE | 2018-10-07 16:12 | Physician Discharge Referral ---
ExtendedCare Referral Info Institutional Level of Care: Skilled - Diagnosis (1) Hospital-acquired pneumonia Status: Acute (2) Pleural effusion Status: Resolved (3) ESRD (end stage renal disease) on dialysis Status: Chronic (4) CAD (coronary artery disease) Status: Chronic - Transfer Medications Prescriptions: Levofloxacin [Levaquin] 500 mg PO ONCE #1 tablet Home Medications: Clopidogrel [Plavix] 75 mg PO HS 01/15/18 [History] Venlafaxine XR (24 HR) [Effexor Xr] 150 mg PO DAILY 01/15/18 [History] Trazodone HCl 100 mg PO HS PRN 01/31/18 [History] Calcium Acetate [Phos-LO] 1,334 mg PO TIDWM 07/03/18 [History] Nitroglycerin [Nitrostat] 0.4 mg SL Q5M PRN 07/04/18 [History] Aspirin [Lo-Dose Aspirin EC] 81 mg PO DAILY 08/23/18 [History] Atorvastatin Calcium [Lipitor] 20 mg PO HS 08/23/18 [History] Metoprolol Succinate 200 mg PO DAILY #0 08/24/18 [Rx] Ondansetron ODT [Zofran ODT] 4 mg SL Q6HR PRN #20 tab.rapdis 08/24/18 [Rx] Acetaminophen [Tylenol] 650 mg PO Q4H PRN 09/22/18 [History] Gabapentin [Neurontin] 100 mg PO TID 10/05/18 [History] Tramadol HCl [Ultram] 50 mg PO BID PRN 10/05/18 [History] Levofloxacin [Levaquin] 500 mg PO ONCE #1 tablet 10/07/18 [Rx] Allergies/Adverse Reactions: Allergy/AdvReac Type Severity Reaction Status Date / Time No Known Allergies Allergy Verified 08/30/18 18:09 - Respiratory Orders Smoking Cessation: Smoking cessation has been advised. For more information, call the [place] Tobacco Quit Line at 6-765-SJAQ-NOW. CERTIFICATION: I certify that the transfer of the above named patient to an Extended Care Facility is necessary for the continuing treatment of the diagnosis listed. The above information is true and accurate reflection of patient's current condition. Confidential - Redisclosure prohibited without a patient's written consent.
[2018-10-07 19:26] VITALS: BP 138/76
== END 2018-10-07 20:35 | DRG 193 ==
LOC: EMEROOARM 15:46 → 3BNU 15:46 → 2ANU 15:46 → SUATTDRO 10-04 11:58
PROVIDERS: ADMIT Pediatrics; ATTEND Hospitalist

== ENCOUNTER 2018-10-16 14:19 | Inpatient (IN) ==
--- NOTE | 2018-10-16 14:23 | Emergency Department Note ---
Disposition Clinical Impression: Hypoxia, Pleural effusion CHF (congestive heart failure) Qualifiers: Heart failure type: other Qualified Code(s): I50.9 - Heart failure, unspecified Disposition: Admitted As Inpatient Condition: Serious Time of Disposition: 02:16 SOB HPI - General Stated Complaint: shortness of breath Time Seen by Provider: 10/16/18 14:22 Source: patient, family Mode of arrival: ambulatory Limitations: no limitations Nursing Notes Reviewed: Yes Vital Signs Reviewed: Yes - History of Present Illness 78-year-old male past medical history of CHF, stable aortic aneurysm per patient which is monitored and not increasing in size, kidney failure presenting for 2 day history of increasing dyspnea and altered mental status. Patient states that he has had 2 pleural effusions in the past which have required thoracentesis. Patient with desaturations into the 70% range on presentation, he has shallow volume of respirations, accessory muscle of breathing effort, patient is alert and oriented and answering questions appropriately but family states that he has been hallucinating at home. Patient states he is on BiPAP at the extended care facility which he lives at. Pt Subjective Complaint: shortness of breath - Related Data Home Medications Medication Instructions Recorded Confirmed Clopidogrel [Plavix] 75 mg PO HS 01/15/18 10/17/18 Venlafaxine XR (24 HR) [Effexor Xr] 150 mg PO DAILY 01/15/18 10/17/18 Trazodone HCl 100 mg PO HS PRN 01/31/18 10/17/18 Calcium Acetate [Phos-LO] 1,334 mg PO TIDWM 07/03/18 10/17/18 Nitroglycerin [Nitrostat] 0.4 mg SL Q5M PRN 07/04/18 10/17/18 Aspirin [Lo-Dose Aspirin EC] 81 mg PO DAILY 08/23/18 10/17/18 Atorvastatin Calcium [Lipitor] 20 mg PO HS 08/23/18 10/17/18 Gabapentin [Neurontin] 100 mg PO TID 10/05/18 10/17/18 Tramadol HCl [Ultram] 50 mg PO BID PRN 10/05/18 10/17/18 Levofloxacin [Levaquin] 500 mg PO DAILY 10/16/18 10/16/18 Acetaminophen [Tylenol 8 Hour] 650 mg PO Q6H PRN 10/17/18 10/17/18 Guaifenesin [Mucinex] 600 mg PO BID PRN 10/17/18 10/17/18 Ipratropium/Albuterol Neb [Duoneb] 3 ml IH Q6HR PRN 10/17/18 10/17/18 LORazepam [Ativan] 0.5 mg PO BID 10/17/18 10/17/18 Oxycodone HCl [Roxybond] 5 mg PO QID PRN 10/17/18 10/17/18 Previous Rx's Medication Instructions Recorded Metoprolol Succinate 200 mg PO DAILY #0 08/24/18 Ondansetron ODT [Zofran ODT] 4 mg SL Q6HR PRN #20 tab.rapdis 08/24/18 Allergies Allergy/AdvReac Type Severity Reaction Status Date / Time No Known Allergies Allergy Verified 10/17/18 10:50 Review of Systems: Constitutional: Denies: fever, chills Cardiovascular: Denies: chest pain Respiratory: Admits dyspnea Gastrointestinal: Denies: abdominal pain, nausea, vomiting, diarrhea, constipation, hematemesis, melena, hematochezia Genitourinary: Denies: hematuria Musculoskeletal: Patient admits to 8 out of 10 sharp back pain in the left scapular region. Neurological: Denies: headache, weakness, numbness, paresthesias Endocrine: Admits fatigue All systems ED: reviewed and negative except as stated. Review of Systems: As Per HPI Past Medical History - Past Medical History Medical history: Reports: aortic aneurysm, arthritis, coronary artery disease, diabetes, dialysis, hyperlipidemia, hypertension, renal disease Surgical history: Reports: angioplasty/stent, coronary bypass (CABG), orthopedic, other, other Psychiatric history: Reports: anxiety, depression - Social History Smoking Status: Former smoker Smokeless Tobacco Status: No Alcohol use: Reports: none Drug use: Reports: none Physical Exam Constitutional: Patient is moderate respiratory distress, otherwise [id number], engaged to conversation, speech is fluid, answers questions appropriately Neuro: GCS 15, no overt focal neurological deficits Head: Atraumatic, normocephalic Eyes: Pupils equal, round and reactive to light, no scleral icterus, no conjunctival injection Neck: Trachea midline without deviation. Anterior neck is supple without swelling. *Chest: Symmetric chest wall rise *Heart: There is a holosystolic murmur noted left of the sternal border at second intercostal space. Cardiac rhythm and rate are regular with S1 and S2 , no S3 or S4 appreciated *Lungs: Patient with small volume of respiration, decreased lung sounds in bilateral bases. Increased respiratory effort with accessory muscle use. Lungs are otherwise clear to auscultation bilaterally, No wheezes, rhonchi or stridor appreciated. Abdomen: Abdomen is flat, soft to palpation, normal bowel sounds. No abdominal bruit auscultated. Non-distended, non-rigid, no organomegaly, no ascites appreciated. No pulsatile mass, no tenderness or guarding to palpation in all four quadrants, no rebound Extremities: Normal capillary refill without evidence of pedal edema, joint swelling or erythema. Pulses/motor/sensory intact in all 4 extremities. Psychiatric exam: Patient displays a normal affect and mood for the environment. No overt signs of hallucination. Integumentary: warm, dry, intact, normal color. No rash, cyanosis, diaphoresis, erythema, or pallor Course Course Narrative: ED respiratory called for immediate BiPAP/ABG CBC, BMP, BNP, troponin, chest x-ray, lactate. Vital Signs Temperature 97.5 F L 10/16/18 14:25 Pulse Rate 65 10/16/18 14:25 Respiratory Rate 20 10/16/18 14:25 Blood Pressure 135/74 10/16/18 14:25 O2 Sat by Pulse Oximetry 100 10/16/18 14:25 Temperature 98.1 F 10/16/18 21:56 Pulse Rate 60 10/16/18 21:56 Respiratory Rate 16 10/16/18 21:56 Blood Pressure 142/80 10/16/18 21:56 O2 Sat by Pulse Oximetry 99 10/16/18 21:56 Oxygen Delivery Oxygen Delivery Bipap Shortness of Breath/Dyspnea - MDM Narrative Medical decision making narrative: Patient's imaging and laboratory results are concerning for CHF exacerbation Patient admitted to hospital medicine service for further evaluation and management of congestive heart failure. - Lab Data Lab results reviewed: Yes I reviewed the patient's lab results. Result diagrams: 10/17/18 02:37 10/17/18 07:13 Lab Results 10/16/18 10/16/18 10/16/18 Range/Units 14:45 14:45 14:45 WBC 5.8 (4.3-11.1) K/mcL RBC 3.18 L (4.19-5.50) M/mcL Hgb 9.7 L (12.9-16.9) g/dL Hct 31.7 L (37.5-50.1) % MCV 99.7 (83.0-100.0) fL MCH 30.5 (28.0-33.3) pg MCHC 30.6 L (31.6-35.5) g/dL RDW 16.0 H (11.5-14.5) % Plt Count 82 L (140-400) K/mcL MPV 10.5 (9.4-12.4) fL Immature Gran % 0.2 (0-4) % Seg Neutrophils % 50.6 % Lymphocytes % 23.3 % Monocytes % 11.1 % Eosinophils % 14.5 % Basophils % 0.3 % Neutrophils # 2.9 (1.6-8.9) K/mcL Lymphocytes # 1.4 (0.6-4.6) K/mcL Monocytes # 0.6 (0.0-1.3) K/mcL Eosinophils # 0.8 H (0.0-0.6) K/mcL Basophils # 0.0 (0.0-0.2) K/mcL Platelet Estimate Decreased L (Normal) ABG pH (7.32-7.45) pH Units ABG pCO2 (35-45) mmHg ABG pO2 (85-104) mmHg ABG HCO3 (21-27) mEq/L ABG Total CO2 (20-26) mEq/L ABG O2 Saturation (95-98) % ABG Base Excess (-2 to 3) mEq/L O2 Delivery Device Inspired O2 (1-15=lpm [id number]=%) Sodium 136 (136-145) mEq/L Potassium 4.0 (3.5-5.1) mEq/L Chloride 96 L (98-107) mEq/L Carbon Dioxide 28 (23-29) mEq/L BUN 26 H (8-23) mg/dL Creatinine 6.69 H (0.70-1.30) mg/dL Est GFR ( Amer) 10 L (> 60) Est GFR (Non-Af Amer) 8 L (> 60) BUN/Creatinine Ratio 4 L (6-26) Glucose 154 H (70-105) mg/dL Calculated Osmolality 290 (280-300) Lactic Acid (0.5-2.2) mmol/L Calcium 8.4 L (8.6-10.3) mg/dL Troponin I 0.03 (< 0.04) ng/mL B-Natriuretic Peptide 2093 H (Less than 100) pg/mL 10/16/18 10/16/18 Range/Units 14:50 15:48 WBC (4.3-11.1) K/mcL RBC (4.19-5.50) M/mcL Hgb (12.9-16.9) g/dL Hct (37.5-50.1) % MCV (83.0-100.0) fL MCH (28.0-33.3) pg MCHC (31.6-35.5) g/dL RDW (11.5-14.5) % Plt Count (140-400) K/mcL MPV (9.4-12.4) fL Immature Gran % (0-4) % Seg Neutrophils % % Lymphocytes % % Monocytes % % Eosinophils % % Basophils % % Neutrophils # (1.6-8.9) K/mcL Lymphocytes # (0.6-4.6) K/mcL Monocytes # (0.0-1.3) K/mcL Eosinophils # (0.0-0.6) K/mcL Basophils # (0.0-0.2) K/mcL Platelet Estimate (Normal) ABG pH 7.37 (7.32-7.45) pH Units ABG pCO2 51 H (35-45) mmHg ABG pO2 245 H (85-104) mmHg ABG HCO3 29 H (21-27) mEq/L ABG Total CO2 31 H (20-26) mEq/L ABG O2 Saturation 100 H (95-98) % ABG Base Excess 3 (-2 to 3) mEq/L O2 Delivery Device Oxy Mask Inspired O2 13.0 (1-15=lpm [id number]=%) Sodium (136-145) mEq/L Potassium (3.5-5.1) mEq/L Chloride (98-107) mEq/L Carbon Dioxide (23-29) mEq/L BUN (8-23) mg/dL Creatinine (0.70-1.30) mg/dL Est GFR ( Amer) (> 60) Est GFR (Non-Af Amer) (> 60) BUN/Creatinine Ratio (6-26) Glucose (70-105) mg/dL Calculated Osmolality (280-300) Lactic Acid 1.4 (0.5-2.2) mmol/L Calcium (8.6-10.3) mg/dL Troponin I (< 0.04) ng/mL B-Natriuretic Peptide (Less than 100) pg/mL - Radiology Data Radiology results reviewed: Yes I reviewed the patient's radiology results. Chest X-Ray 10/16/18 14:35 IMPRESSION: 1. Worsening congestive heart failure. D/ / Yury Muller MD / Yury Muller MD Interpreting Provider: Yury Muller MD - EKG Data EKG attestation: Yes I reviewed and interpreted this EKG. EKG results narrative: Patient EKG shows sinus rhythm with a heart of 67 bpm, AK interval 157 ms, QS duration of 108 ms, QT/QTc interval 392/414 ms respectively. There are no significant ST segment elevations, depressions, pathologic Q waves, there are abnormal T-wave inversions noted throughout the anterior lateral leads which are consistent with prior EKGs. There are no signs of acute ischemic change. This EKG performed today is generally consistent with prior EKG performed on October [id number]. Attestation Statement - Attestation Attestation: I have seen this patient with the resident physician, I have personally evaluated this patient. I had reviewed the chart and document dictation by the resident physician and aM in agreement with the information documented by the resident physician. Please see documentation by the resident physician for complete chart including past medical history, family medical history, review of systems, current history and physical and laboratory and imaging studies. I was present for all procedures, provided direct supervision for all procedures, was present for the entirety of all procedures and provided direct guidance during the procedures. Please see documentation by the resident physician for any procedures performed. I have reviewed all interpretations of EKGs, and reviewed all EKGs performed on patient's as well. I have also reviewed reports of imaging as provided by radiology.
[2018-10-16 14:55] LABS: ABG Base Excess 3 mEq/L (-2 to 3); ABG HCO3 29 mEq/L (21-27); ABG Oxygen Saturation 100 % (95-98); ABG PCO2 51 mmHg (35-45); ABG PH 7.37 pH Units (7.32-7.45); ABG PO2 245 mmHg (85-104); ABG TCO2 31 mEq/L (20-26)
[2018-10-16 15:01] LABS: Basophils % 0.3 %; Eosinophils # 0.8 K/mcL (0.0-0.6); Eosinophils % 14.5 %; Hematocrit 31.7 % (37.5-50.1); Hemoglobin 9.7 g/dL (12.9-16.9); Immature Granulocytes % 0.2 % (0-4); Lymphocytes # 1.4 K/mcL (0.6-4.6); Lymphocytes % 23.3 %; Mean Corpuscular HGB Conc 30.6 g/dL (31.6-35.5); Mean Corpuscular Hemoglobin 30.5 pg (28.0-33.3); Mean Corpuscular Volume 99.7 fL (83.0-100.0); Mean Platelet Volume 10.5 fL (9.4-12.4); Monocytes # 0.6 K/mcL (0.0-1.3); Monocytes % 11.1 %; Neutrophils # 2.9 K/mcL (1.6-8.9); Red Blood Count 3.18 M/mcL (4.19-5.50); Segmented Neutrophils % 50.6 %
[2018-10-16 15:03] LABS: Platelet Count 82 K/mcL (140-400); Platelet Estimate Decreased (Normal)
[2018-10-16 15:26] LABS: Calcium 8.4 mg/dL (8.6-10.3)
[2018-10-16 15:27] LABS: Troponin I 0.03 ng/mL (< 0.04)
[2018-10-16] MEDS ORDERED: Naloxone 0.4 MG/ML INJ IVP PRN (16:32)
--- NOTE | 2018-10-16 17:16 | Internal Med History&Physical ---
Date of Encounter: 10/16/18 Time of Encounter: 16:30 Internal Medicine - H&P: HPI Chief complaint: Shortness of breath Admitted From: Emergency Dept Plans for Post Hospital Care: Transfer [facility] History of present illness: Mr. Esquivel is a 78 year old male patient with history of end-stage renal diseas e on hemodialysis, chronic respiratory failure with hypoxia who resides at skilled nursing presented to the ER with complaints of worsening shortness of breath since yesterday. He is also been noted to have increasing weight gain. He gets dialyzed on Wednesday schedule. Patient is normally on 3- 4 L O2 supplementation and uses BiPAP while lying down. According to the ED records, he was desaturating into the 70s on presentation along with shallow respirations. He was initially placed on oxymask at 13l/min and eventually transitioned to BiPAP which he is on right now. This seems to have helped his symptoms. He was hospitalized here earlier this month and discharged on 10/07. At that time he received thoracentesis for his right-sided pleural effusion. He was also treated for right middle and lower lobe pneumonia with IV vancomycin and Zosyn. He was then discharged on Levaquin. He has baseline cough. Denies any chest pain. No fevers or chills reported. Denies any abdominal pain nausea or vomiting. Past Med Surg Social Fam HX - Past Medical History Attestation: Yes The following information was validated with the patient. Source: patient Medical history: aortic aneurysm, arthritis, CHF, coronary artery disease, diabetes, dialysis, hyperlipidemia, hypertension, renal disease Additional medical history: BLADDER NECK CONTRACTURE, SQUAMOUS CELL CANCER. 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), triple bypass - Social History Smoking Status: Former smoker Smokeless Tobacco Status: No Alcohol use: none Drug use: none - Family History Father Adopted: No Family Member Ethnicity: Non- Living Status: Hx Family Cardiac Disorders: Yes ([place]) Mother Adopted: No Family Member Ethnicity: Non- Living Status: Hx Family Cancer: Yes Brother Family Member Ethnicity: Non- Living Status: Still Living Sister Adopted: No Family Member Ethnicity: Non- Living Status: Still Living Hx Family Cardiac Disorders: Yes Hx Family Respiratory Disorders: No Hx Family Cancer: Yes Hx Family GI Disorders: No Hx Family Endocrine Disorder: Yes Hx Family Neuromuscular Disorders: No Hx Family Neurologic Disorders: No Hx Family HEENT Disorders: No Hx Family Autoimmune Disorders: No Internal Medicine - H&P: Meds Clopidogrel [Plavix] 75 mg PO HS 01/15/18 [History] Venlafaxine XR (24 HR) [Effexor Xr] 150 mg PO DAILY 01/15/18 [History] Trazodone HCl 100 mg PO HS PRN 01/31/18 [History] Calcium Acetate [Phos-LO] 1,334 mg PO TIDWM 07/03/18 [History] Nitroglycerin [Nitrostat] 0.4 mg SL Q5M PRN 07/04/18 [History] Aspirin [Lo-Dose Aspirin EC] 81 mg PO DAILY 08/23/18 [History] Atorvastatin Calcium [Lipitor] 20 mg PO HS 08/23/18 [History] Metoprolol Succinate 200 mg PO DAILY #0 08/24/18 [Rx] Ondansetron ODT [Zofran ODT] 4 mg SL Q6HR PRN #20 tab.rapdis 08/24/18 [Rx] Acetaminophen [Tylenol] 650 mg PO Q4H PRN 09/22/18 [History] Gabapentin [Neurontin] 100 mg PO TID 10/05/18 [History] Tramadol HCl [Ultram] 50 mg PO BID PRN 10/05/18 [History] Levofloxacin [Levaquin] 500 mg PO ONCE #1 tablet 10/07/18 [Rx] Allergy/AdvReac Type Severity Reaction Status Date / Time No Known Allergies Allergy Verified 08/30/18 18:09 All Systems PM: A 10-system review of systems was performed and is negative for pertinent findings except as documented above in the HPI. - Constitutional Constitutional: malaise, weight gain, no chills, no fever(s), no night sweats - EENT Eyes: no change in vision, no discharge, no pain, no photophobia Ears: no ear discharge, no ear pain, no tinnitus Nose, mouth and throat: no dysphagia, no nasal discharge, no neck pain, no sore throat - Cardiovascular Cardiovascular ROS IM: no chest pain, no diaphoresis, no dyspnea, no lightheadedness, no palpitations, no syncope - Respiratory Respiratory: cough, dyspnea, no wheezing, no excessive phlegm production - Gastrointestinal Gastrointestinal: no abdominal pain, no diarrhea, no hematemesis, no hematochezia, no melena, no nausea, no vomiting - Musculoskeletal Musculoskeletal ROS IM: no numbness, no tingling - Integumentary Integumentary IM: no rash, no unusual bruising - Neurological Neurological ROS: no confusion, no convulsions, no focal weakness, no numbness, no tingling, no tremor(s) - Hematologic/Lymphatic Hematologic/Lymphatic: no easy bruising - Constitutional Vitals: Temp Pulse Resp BP Pulse Ox 97.5 F L 61 18 146/76 100 10/16/18 14:25 10/16/18 17:08 10/16/18 17:08 10/16/18 17:08 10/16/18 17:08 General appearance: Present: cooperative, severe distress, answers questions appropriately Exam: General: Patient is alert, severe distress, oriented x 3 Head: atraumatic, normocephalic, ENT: Mucous membranes moist BiPAP mask in place. Eye: normal appearance, PERRL, no scleral icterus, no conjunctival injection Neck: normal inspection, trachea midline, full ROM, no carotid bruits Chest: normal inspection, symmetric chest rise Respiratory: Coarse breath sounds bilaterally. Cardiovascular: Regular rate and rhythm. s1 and s2 normal No clicks, rubs, gallops, or murmurs. No pedal edema Abdomen: Abdomen is soft, nontender. Bowel sounds are present Musculoskeletal: Spontaneously moving all extremities Skin: warm, dry, intact. Neuro: Alert oriented x 3 normal cranial nerves, no focal deficits Psych: Patient's affect is normal Internal Med - H&P Results - Labs CBC & Chem 7: 10/16/18 14:45 10/16/18 14:45 Labs: Short CBC 10/16/18 Range/Units 14:45 WBC 5.8 (4.3-11.1) K/mcL Hgb 9.7 L (12.9-16.9) g/dL Hct 31.7 L (37.5-50.1) % Plt Count 82 L (140-400) K/mcL Neutrophils # 2.9 (1.6-8.9) K/mcL BMP 10/16/18 14:45 Sodium 136 Potassium 4.0 Chloride 96 L Carbon Dioxide 28 BUN 26 H Creatinine 6.69 H Glucose 154 H Calcium 8.4 L Cardiac Enzymes 10/16/18 Range/Units 14:45 Troponin I 0.03 (< 0.04) ng/mL - ABG Interpretation ABG results: 10/16/18 14:50 ABG pH 7.37 ABG pCO2 51 H ABG pO2 245 H ABG HCO3 29 H ABG Total CO2 31 H ABG O2 Saturation 100 H ABG Base Excess 3 - Impressions ITS Impressions Chest X-Ray 10/16/18 14:35 IMPRESSION: 1. Worsening congestive heart failure. D/ / Yury Muller MD / Yury Muller MD Interpreting Provider: Yury Muller MD - Assessment and Plan (1) Acute on chronic respiratory failure with hypoxemia Current Visit: Yes Status: Acute Assessment and plan: Due to fluid overload. Chest x-ray shows congestive heart failure. Nephrology has been consulted to help with volume management through dialysis. Patient will be on BiPAP for now and we will wean FiO2 as tolerated. (2) Diastolic CHF, chronic Current Visit: Yes Status: Chronic Assessment and plan: Acute on chronic diastolic congestive heart failure. Mainly due to fluid overload. Patient will be managed with dialysis. Nephrology consulted. Continue supportive care in the meantime. (3) ESRD (end stage renal disease) on dialysis Current Visit: Yes Status: Chronic (4) Type 2 diabetes mellitus Current Visit: Yes Status: Chronic Assessment and plan: Chronic. Monitor blood sugars. Sliding scale insulin. Diabetic diet when patient is able to tolerate. Qualifiers: Diabetes mellitus termite helper insulin use: without residential use Diabetes mellitus complication status: with hypoglycemia Diabetes mellitus complication detail: with coma Qualified Code(s): E11.641 - Type 2 diabetes mellitus with hypoglycemia with coma - Time Spent With Patient Total time spent is greater than 50% in coordination of care (as documented) at patient's floor/unit and/or counseling patient:
--- NOTE | 2018-10-16 17:18 | Emergency Department Note ---
Disposition Clinical Impression: Hypoxia, Pleural effusion CHF (congestive heart failure) Qualifiers: Heart failure type: diastolic Heart failure chronicity: acute Qualified Code(s): I50.31 - Acute diastolic (congestive) heart failure Disposition: Admitted As Inpatient Condition: Serious Referrals: Marga Dukes, PhD [Primary Care Provider] - Time of Disposition: 16:10 General Adult HPI - General Chief complaint: ED Shortness of Breath/Dyspnea Stated complaint: shortness of breath Time Seen by Provider: 10/16/18 14:22 Source: patient, family Mode of arrival: ambulatory Limitations: no limitations - History of Present Illness Pain Scale: 4 - Related Data Home Medications Medication Instructions Recorded Confirmed Clopidogrel [Plavix] 75 mg PO HS 01/15/18 10/05/18 Venlafaxine XR (24 HR) [Effexor Xr] 150 mg PO DAILY 01/15/18 10/05/18 Trazodone HCl 100 mg PO HS PRN 01/31/18 10/05/18 Calcium Acetate [Phos-LO] 1,334 mg PO TIDWM 07/03/18 10/05/18 Nitroglycerin [Nitrostat] 0.4 mg SL Q5M PRN 07/04/18 10/05/18 Aspirin [Lo-Dose Aspirin EC] 81 mg PO DAILY 08/23/18 10/05/18 Atorvastatin Calcium [Lipitor] 20 mg PO HS 08/23/18 10/05/18 Acetaminophen [Tylenol] 650 mg PO Q4H PRN 09/22/18 10/05/18 Gabapentin [Neurontin] 100 mg PO TID 10/05/18 10/05/18 Tramadol HCl [Ultram] 50 mg PO BID PRN 10/05/18 10/05/18 Previous Rx's Medication Instructions Recorded Metoprolol Succinate 200 mg PO DAILY #0 08/24/18 Ondansetron ODT [Zofran ODT] 4 mg SL Q6HR PRN #20 tab.rapdis 08/24/18 Levofloxacin [Levaquin] 500 mg PO ONCE #1 tablet 10/07/18 Allergies Allergy/AdvReac Type Severity Reaction Status Date / Time No Known Allergies Allergy Verified 08/30/18 18:09 Past Medical History - Past Medical History Medical history: Reports: aortic aneurysm, arthritis, CHF, coronary artery disease, diabetes, dialysis, hyperlipidemia, hypertension, renal disease Surgical history: Reports: angioplasty/stent, coronary bypass (CABG), orthopedic, other, other Psychiatric history: Reports: anxiety, depression - Social History Smoking Status: Former smoker Smokeless Tobacco Status: No Alcohol use: Reports: none Drug use: Reports: none Physical Exam - General Limitations: no limitations General appearance: alert, in no apparent distress Course Vital Signs Temperature 97.5 F L 10/16/18 14:25 Pulse Rate 65 10/16/18 14:25 Respiratory Rate 20 10/16/18 14:25 Blood Pressure 135/74 10/16/18 14:25 O2 Sat by Pulse Oximetry 100 10/16/18 14:25 Temperature 97.5 F L 10/16/18 14:25 Pulse Rate 61 10/16/18 17:08 Respiratory Rate 18 10/16/18 17:08 Blood Pressure 146/76 10/16/18 17:08 O2 Sat by Pulse Oximetry 100 10/16/18 17:08 Oxygen Delivery Oxygen Delivery Bipap Medical Decision Making - Lab Data Result diagrams: 10/16/18 14:45 10/16/18 14:45 Lab Results 10/16/18 10/16/18 10/16/18 Range/Units 14:45 14:45 14:45 WBC 5.8 (4.3-11.1) K/mcL RBC 3.18 L (4.19-5.50) M/mcL Hgb 9.7 L (12.9-16.9) g/dL Hct 31.7 L (37.5-50.1) % MCV 99.7 (83.0-100.0) fL MCH 30.5 (28.0-33.3) pg MCHC 30.6 L (31.6-35.5) g/dL RDW 16.0 H (11.5-14.5) % Plt Count 82 L (140-400) K/mcL MPV 10.5 (9.4-12.4) fL Immature Gran % 0.2 (0-4) % Seg Neutrophils % 50.6 % Lymphocytes % 23.3 % Monocytes % 11.1 % Eosinophils % 14.5 % Basophils % 0.3 % Neutrophils # 2.9 (1.6-8.9) K/mcL Lymphocytes # 1.4 (0.6-4.6) K/mcL Monocytes # 0.6 (0.0-1.3) K/mcL Eosinophils # 0.8 H (0.0-0.6) K/mcL Basophils # 0.0 (0.0-0.2) K/mcL Platelet Estimate Decreased L (Normal) ABG pH (7.32-7.45) pH Units ABG pCO2 (35-45) mmHg ABG pO2 (85-104) mmHg ABG HCO3 (21-27) mEq/L ABG Total CO2 (20-26) mEq/L ABG O2 Saturation (95-98) % ABG Base Excess (-2 to 3) mEq/L O2 Delivery Device Inspired O2 (1-15=lpm [id number]=%) Sodium 136 (136-145) mEq/L Potassium 4.0 (3.5-5.1) mEq/L Chloride 96 L (98-107) mEq/L Carbon Dioxide 28 (23-29) mEq/L BUN 26 H (8-23) mg/dL Creatinine 6.69 H (0.70-1.30) mg/dL Est GFR ( Amer) 10 L (> 60) Est GFR (Non-Af Amer) 8 L (> 60) BUN/Creatinine Ratio 4 L (6-26) Glucose 154 H (70-105) mg/dL Calculated Osmolality 290 (280-300) Lactic Acid (0.5-2.2) mmol/L Calcium 8.4 L (8.6-10.3) mg/dL Troponin I 0.03 (< 0.04) ng/mL B-Natriuretic Peptide 2093 H (Less than 100) pg/mL 10/16/18 10/16/18 Range/Units 14:50 15:48 WBC (4.3-11.1) K/mcL RBC (4.19-5.50) M/mcL Hgb (12.9-16.9) g/dL Hct (37.5-50.1) % MCV (83.0-100.0) fL MCH (28.0-33.3) pg MCHC (31.6-35.5) g/dL RDW (11.5-14.5) % Plt Count (140-400) K/mcL MPV (9.4-12.4) fL Immature Gran % (0-4) % Seg Neutrophils % % Lymphocytes % % Monocytes % % Eosinophils % % Basophils % % Neutrophils # (1.6-8.9) K/mcL Lymphocytes # (0.6-4.6) K/mcL Monocytes # (0.0-1.3) K/mcL Eosinophils # (0.0-0.6) K/mcL Basophils # (0.0-0.2) K/mcL Platelet Estimate (Normal) ABG pH 7.37 (7.32-7.45) pH Units ABG pCO2 51 H (35-45) mmHg ABG pO2 245 H (85-104) mmHg ABG HCO3 29 H (21-27) mEq/L ABG Total CO2 31 H (20-26) mEq/L ABG O2 Saturation 100 H (95-98) % ABG Base Excess 3 (-2 to 3) mEq/L O2 Delivery Device Oxy Mask Inspired O2 13.0 (1-15=lpm [id number]=%) Sodium (136-145) mEq/L Potassium (3.5-5.1) mEq/L Chloride (98-107) mEq/L Carbon Dioxide (23-29) mEq/L BUN (8-23) mg/dL Creatinine (0.70-1.30) mg/dL Est GFR ( Amer) (> 60) Est GFR (Non-Af Amer) (> 60) BUN/Creatinine Ratio (6-26) Glucose (70-105) mg/dL Calculated Osmolality (280-300) Lactic Acid 1.4 (0.5-2.2) mmol/L Calcium (8.6-10.3) mg/dL Troponin I (< 0.04) ng/mL B-Natriuretic Peptide (Less than 100) pg/mL Attestation Statement - Attestation Attestation: I have seen this patient with the resident physician, I have personally evaluated this patient. I had reviewed the chart and document dictation by the resident physician and aM in agreement with the information documented by the resident physician. Please see documentation by the resident physician for complete chart including past medical history, family medical history, review of systems, current history and physical and laboratory and imaging studies. I was present for all procedures, provided direct supervision for all procedures, was present for the entirety of all procedures and provided direct guidance during the procedures. Please see documentation by the resident physician for any procedures performed. I have reviewed all interpretations of EKGs, and reviewed all EKGs performed on patient's as well. I have also reviewed reports of imaging as provided by radiology. Patient presented to the emergency department with chief complaint of progressively increasing shortness of breath with orthopnea for the last couple of days worse today. Denies significant chest pain he does endorse some upper back pain with certain positions but denies tearing or ripping sensation denies abdominal pain denies nausea or vomiting. On physical examination he is resting peacefully in the bed, nontoxic in appearance however is hypoxic with oxygen saturation of 76% upon arrival, on nasal cannula no significant improvement of of 80% he was placed on a Ventimask, with improvement of oxygenation into the 90s. And then placed on BiPAP for clinical concerns of CHF. On physical exam he had diminished breath sounds bilateral bases right greater than left, with dullness to percussion, he has a history of prior pleural effusions, physical exam consistent with this. He does have JVD abdomen is soft nontender without any rebound guarding or peritoneal sign. There is some peripheral edema. No evidence of DVT. Heart regular rate and rhythm, 2/6 systolic murmur no rubs or gallops. EKG was a normal sinus rhythm, there was no evidence of acute ST elevation or ST depression there is unchanged appearance to V2 and V3 with downward sloping ST segments with biphasic T waves, again however compared to EKG from 2 weeks ago there is no acute changed, Chest x-ray as interpreted by radiology demonstrated pleural effusions right greater than left increased in size, with no pulmonary vascular congestion consistent with fluid overload. Laboratory studies show chronic creatinine elevation consistent with his history of dialysis no hyperkalemia. BNP elevated at over 2000. Cardiac enzymes negative. CBC within acceptable limits stable for this patient. Contacted nephrology Dr. Donis, discuss consideration of emergent dialysis secondary to fluid overload, he states that with the patient stable on BiPAP at this time, with no hyperkalemia, that he feels comfortable with the patient receiving dialysis first thing in the morning, however should anything change overnight he is available to be contacted by the hospital service. I spoke with the hospitalist has accepted this patient, we will contact nephrology as needed should they feel dialysis is required more emergently. Total critical care time as provided by myself excluding any procedures performed and management of acute fluid overload bilateral pleural effusions hypoxia was 30 minutes.
[2018-10-16] MEDS ORDERED: Acetaminophen 325 MG TABLET PO PRN (17:48)
[2018-10-16] MEDS: Gabapentin 100 MG CAPSULE PO SCH (21:50)
[2018-10-16] MEDS: traZODone 50 MG TABLET PO PRN (21:50)
[2018-10-16] MEDS: traMADol 50 MG TABLET PO PRN (21:50)
[2018-10-17] MEDS: *HR* Heparin 5,000 UNIT/ML VIAL SQ SCH ×3 (00:09→17:06)
[2018-10-17 06:52] LABS: Hemoglobin 9.6 g/dL (12.9-16.9)
[2018-10-17 06:54] LABS: Basophils % 0.3 %; Eosinophils # 0.9 K/mcL (0.0-0.6); Eosinophils % 14.6 %; Hematocrit 31.6 % (37.5-50.1); Immature Granulocytes % 0.3 % (0-4); Immature Platelets 6.6 % (1.1-6.1); Lymphocytes # 1.6 K/mcL (0.6-4.6); Lymphocytes % 26.9 %; Mean Corpuscular HGB Conc 30.4 g/dL (31.6-35.5); Mean Corpuscular Hemoglobin 30.3 pg (28.0-33.3); Mean Corpuscular Volume 99.7 fL (83.0-100.0); Mean Platelet Volume 10.6 fL (9.4-12.4); Monocytes % 11.1 %; Neutrophils # 2.7 K/mcL (1.6-8.9); Red Blood Count 3.17 M/mcL (4.19-5.50); Red Cell Distribution Width 16.1 % (11.5-14.5); Segmented Neutrophils % 46.8 %
[2018-10-17] MEDS ORDERED: 0.9 % Sodium Chloride 250 ML IVC PRN (07:01)
[2018-10-17 07:02] LABS: Monocytes # 0.6 K/mcL (0.0-1.3); Platelet Count 84 K/mcL (140-400)
[2018-10-17] MEDS ORDERED: 0.9 % Sodium Chloride 1,000 ML PRIME SCH (07:15)
[2018-10-17 07:58] LABS: Calcium 8.4 mg/dL (8.6-10.3); Potassium 4.5 mEq/L (3.5-5.1)
[2018-10-17] MEDS: Gabapentin 100 MG CAPSULE PO SCH ×3 (08:19→20:40)
[2018-10-17] MEDS: Venlafaxine XR (24 HR) 150 MG CAP.ER.24H PO SCH (08:19)
[2018-10-17] MEDS: Aspirin Enteric Coated 81 MG Tablet PO SCH (08:20)
[2018-10-17] MEDS: Metoprolol XL (24 HR) Succ 50 MG TAB.ER.24H PO SCH (08:20)
[2018-10-17] MEDS: Calcium Acetate 667 MG CAPSULE PO SCH ×3 (08:20→17:05)
[2018-10-17] MEDS: traMADol 50 MG TABLET PO PRN ×2 (08:20→20:40)
[2018-10-17] MEDS ORDERED: 0.9 % Sodium Chloride 2,000 ML ONE (08:21)
--- NOTE | 2018-10-17 10:19 | Electrocardiograph Report ---
[address] [address] Test Date: 2018-10-16 Pat Name: Ike Esquivel Department: EXAM3 Room: 3B14 Gender: M Mock Up Builder: : [id number] Requested By: Gary Rowland Order Number: [id number] Reading MD: Dell Maher Measurements Intervals [place] Rate: 67 P: 29 CO: 157 QRS: 17 QRSD: 108 T: 197 QT: 392 QTc: 414 Interpretive Statements Sinus rhythm Abnormal R-wave progression, early transition Abnrm T, consider ischemia, anterolateral lds Electronically Signed On 10-17-2018 10:18:21 EDT by Dell Maher
--- NOTE | 2018-10-17 11:36 | Internal Med Progress Note ---
Hospitalist Progress Note - Encounter Date of Encounter: 10/17/18 Time of Encounter: 11:09 - Subjective Interval History: Patient seen and examined this afternoon after dialysis. Patient breathing improved. Denies any abdominal pain nausea vomiting diarrhea. Denies new complaints. - Exam Vitals: Temp Pulse Resp BP Pulse Ox 97.8 F 61 20 150/92 99 10/17/18 08:55 10/17/18 07:36 10/17/18 08:55 10/17/18 09:55 10/17/18 08:15 Exam: General: In no acute distress. Respiratory exam: no accessory muscle use. B/l rales at base Cardiovascular exam: RRR, +S1, +S2. no murmur, gallop, rubs. Lt arm fistula with thrill GI/Abdominal exam: Non-tender, Non-distended, normal bowel sounds, soft, no peritoneal signs. Extremities exam: no pedal edema, pulses palpable in b/l lower extremities. no calf tenderness Neurological exam: CN II-XII intact, AO X3, no focal deficits. Skin exam: No skin rash noted - Assessment and Plan (1) Diastolic CHF, chronic Current Visit: Yes Status: Chronic (2) Type 2 diabetes mellitus Current Visit: Yes Status: Chronic (3) ESRD (end stage renal disease) on dialysis Current Visit: Yes Status: Chronic (4) Acute on chronic respiratory failure with hypoxemia Current Visit: Yes Status: Acute - Summary of Assessment and Plan Summary of Assessment and Plan: Assessment Acute on chronic respiratory failure with hypoxemia Diastolic CHF, acute on chronic ESRD Type 2 diabetes mellitus Chronic anemia CAD Plan - CXR with congestion and BNP elevated. Patient with fluid overload. Nephrology consulted on fluid management give patient with ESRD on HD MWF. - c/w Bipap prn for respirator support - Daily weights, fluid and restriction. - Accuchecks and SSI. Diabetic diet. - c/w home aspirin, statin and beta claudia - Time Spent with Patient Total time spent is greater than 50% in coordination of care (as documented) at patient's floor/unit and/or counseling patient: Internal Medicine: Result - Labs CBC & Chem 7: 10/17/18 02:37 10/17/18 07:13 Labs: Short CBC 10/16/18 10/17/18 Range/Units 14:45 02:37 WBC 5.8 5.8 (4.3-11.1) K/mcL Hgb 9.7 L 9.6 L (12.9-16.9) g/dL Hct 31.7 L 31.6 L (37.5-50.1) % Plt Count 82 L 84 L (140-400) K/mcL Neutrophils # 2.9 2.7 (1.6-8.9) K/mcL BMP 10/16/18 10/17/18 14:45 07:13 Sodium 136 137 Potassium 4.0 4.5 Chloride 96 L 99 Carbon Dioxide 28 28 BUN 26 H 29 H Creatinine 6.69 H 7.55 H Glucose 154 H 84 Calcium 8.4 L 8.4 L Cardiac Enzymes 10/16/18 Range/Units 14:45 Troponin I 0.03 (< 0.04) ng/mL - ABG Interpretation ABG results: ABG ABG pH 7.37 pH Units (7.32-7.45) 10/16/18 14:50 ABG pCO2 51 mmHg (35-45) H 10/16/18 14:50 ABG pO2 245 mmHg (85-104) H 10/16/18 14:50 ABG O2 Saturation 100 % (95-98) H 10/16/18 14:50 - Impressions Impressions Chest X-Ray 10/16/18 14:35 IMPRESSION: 1. Worsening congestive heart failure. D/ / Yury Muller MD / Yury Muller MD Interpreting Provider: Yury Muller MD Consult Discharge Plan - Plan Referrals: Marga Dukes, PhD [Primary Care Provider] - (2) Type 2 diabetes mellitus Qualifiers: Diabetes mellitus intermodal 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 insulin use: without intermodal 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 use Diabetes mellitus complication status: with hypoglycemia Diabetes mellitus complication detail: with coma Qualified Code(s): E11.641 - Type 2 diabetes mellitus with hypoglycemia with coma
--- NOTE | 2018-10-17 12:45 | Nephrology Consult Note ---
Date of Encounter: 10/17/18 Time of Encounter: 09:40 Assessment and Plan (1) ESRD (end stage renal disease) on dialysis Current Visit: Yes Status: Chronic He requires hemodialysis every Wednesday/Wednesday/Wednesday, and last completed dialysis on Wednesday. His treatment are typically 3 hours and 45 minutes, but with him having recurrent admissions and volume status/hypervolemic issues, I recommend he have longer dialysis treatments to better maintain his volume status. He will need dialysis today and ultrafiltration tomorrow. He will be back on dialysis the day after that for Wednesday. Then after this admission his dialysis treatments should be extended to 4 hours every Wednesday/Wednesday/Wednesday. He should also follow a fluid restriction that is to help prevent inter-dialytic weight gains. He should adhere to a low-sodium diet that is to help prevent edema as well. I will defer his pulmonary management to the primary team. Not all of this dyspnea is secondary to fluid. Thank you for consult in the [facility], we will continue to follow with you. (2) Acute on chronic respiratory failure with hypoxemia Current Visit: Yes Status: Acute I will challenge his fluid removal, which may help indirectly help improve his respiratory function. (3) Diastolic CHF, chronic Current Visit: Yes Status: Chronic See above, re: fluid removal as described above (4) Fluid overload Current Visit: No Status: Acute Re: fluid removal as described above Qualifiers: Qualified Code(s): E87.70 - Fluid overload, unspecified History of Present Illness - Reason for Consult Consult date: 10/16/18 end stage renal disease Requesting physician: Sujata Regalado - Chief Complaint ESRD, Shortness of breath - History of Present Illness The patient is a very pleasant 78-year-old male with a past medical history of hypertension, CHF, frequent admissions, and ESRD on hemodialysis every Wednesday/Wednesday/Wednesday who presented with shortness of breath. He has had several of these admissions including workup for pleural effusion. He did not affirm taking [id number] NSAIDs, or recent chest pain, nausea, vomiting, diarrhea, or even large committee swelling. He says that his shortness of breath has slowly worsened since late Wednesday evening indefinitely on Wednesday. He said that he completed his hemodialysis in full on Wednesday. Dialysis history: He dialyzes 3 hours and 45 minutes at the [facility] units in [place], [place]. Past Med Surg Social Fam HX - Past Medical History Medical history: aortic aneurysm, arthritis, CHF, coronary artery disease, diabetes, dialysis, hyperlipidemia, hypertension, renal disease Additional medical history: BLADDER NECK CONTRACTURE, SQUAMOUS CELL CANCER. 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), triple bypass - Social History Smoking Status: Former smoker Smokeless Tobacco Status: No Alcohol use: none Drug use: none - Family History Father Adopted: No Family Member Ethnicity: Non- Living Status: Hx Family Cardiac Disorders: Yes (ID) Mother Adopted: No Family Member Ethnicity: Non- Living Status: Hx Family Cancer: Yes Brother Family Member Ethnicity: Non- Living Status: Still Living Sister Adopted: No Family Member Ethnicity: Non- Living Status: Still Living Hx Family Cardiac Disorders: Yes Hx Family Respiratory Disorders: No Hx Family Cancer: Yes Hx Family GI Disorders: No Hx Family Endocrine Disorder: Yes Hx Family Neuromuscular Disorders: No Hx Family Neurologic Disorders: No Hx Family HEENT Disorders: No Hx Family Autoimmune Disorders: No Medications and Allergies Clopidogrel [Plavix] 75 mg PO HS 01/15/18 [History] Venlafaxine XR (24 HR) [Effexor Xr] 150 mg PO DAILY 01/15/18 [History] Trazodone HCl 100 mg PO HS PRN 01/31/18 [History] Calcium Acetate [Phos-LO] 1,334 mg PO TIDWM 07/03/18 [History] Nitroglycerin [Nitrostat] 0.4 mg SL Q5M PRN 07/04/18 [History] Aspirin [Lo-Dose Aspirin EC] 81 mg PO DAILY 08/23/18 [History] Atorvastatin Calcium [Lipitor] 20 mg PO HS 08/23/18 [History] Metoprolol Succinate 200 mg PO DAILY #0 08/24/18 [Rx] Ondansetron ODT [Zofran ODT] 4 mg SL Q6HR PRN #20 tab.rapdis 08/24/18 [Rx] Gabapentin [Neurontin] 100 mg PO TID 10/05/18 [History] Tramadol HCl [Ultram] 50 mg PO BID PRN 10/05/18 [History] Levofloxacin [Levaquin] 500 mg PO DAILY 10/16/18 [History] Acetaminophen [Tylenol 8 Hour] 650 mg PO Q6H PRN 10/17/18 [History] Guaifenesin [Mucinex] 600 mg PO BID PRN 10/17/18 [History] Ipratropium/Albuterol Neb [Duoneb] 3 ml IH Q6HR PRN 10/17/18 [History] LORazepam [Ativan] 0.5 mg PO BID 10/17/18 [History] Oxycodone HCl [Roxybond] 5 mg PO QID PRN 10/17/18 [History] Allergy/AdvReac Type Severity Reaction Status Date / Time No Known Allergies Allergy Verified 10/17/18 10:50 Review of Systems All Systems: reviewed and no additional remarkable complaints except as stated Exam - Vital Signs Vital signs: Initial Vital Signs Temp Pulse Resp BP Pulse Ox 97.5 F L 65 20 135/74 100 10/16/18 14:25 10/16/18 14:25 10/16/18 14:25 10/16/18 14:25 10/16/18 14:25 Vital Signs - Last 8 Hours Temp Pulse Resp BP Pulse Ox 10/17/18 11:40 162/74 10/17/18 11:25 188/93 10/17/18 11:10 178/97 10/17/18 10:55 185/73 10/17/18 10:40 154/96 10/17/18 10:25 138/90 10/17/18 10:10 174/94 10/17/18 09:55 150/92 10/17/18 09:40 120/94 10/17/18 09:25 177/91 10/17/18 09:10 173/69 10/17/18 08:55 97.8 F 20 183/75 10/17/18 08:15 99 10/17/18 07:36 97.7 F 61 18 138/78 99 Intake and Output 10/16/18 10/17/18 10/17/18 23:59 07:59 15:59 Intake Total 600 / 600 Balance 600 / 600 Intake: Intake, Rinseback and Flushes 600 / 600 Other: # Voids 1 Weight 95.7 kg Blood Glucose* 91 74 Hemodialysis Net Fluid Removed 2825 (mL) Patient Weight 10/17/18 23:59 Weight 95.7 kg - General Appearance General appearance: well-developed, appears started age, frail EENT: ATNC, PERRL, mucous membranes moist Neck: no JVD, supple Respiratory: wheezing Cardiology: holosystolic murmur, no edema, regular rate, regular rhythm, normal S1, normal S2 - Dialysis Access Dialysis Vascular Access: Arteriovenous Fistula (LUE AVF) thrill: Yes bruit: Yes Gastrointestinal: normoactive bowel sounds, no tenderness, no guarding Integumentary: no rash, warm and dry Neurologic: no focal deficit, no asterixis, alert and oriented x3 Musculoskeletal: no erythema, no cyanosis Psychiatric: mood/affect appropriate, cooperative Results - Lab Results 10/17/18 02:37 10/17/18 07:13 Most recent lab results 10/17/18 07:13 Calcium 8.4 L Consult Discharge Plan - Plan Referrals: Marga Dukes, PhD [Primary Care Provider] -
[2018-10-17] MEDS ORDERED: Ondansetron 4 MG/2 ML VIAL IVP ONE (12:47)
[2018-10-17] MEDS ORDERED: Acetaminophen 325 MG TABLET PO PRN (14:02)
[2018-10-17] MEDS: traZODone 50 MG TABLET PO PRN (20:40)
[2018-10-17] MEDS: *HR* LORazepam 0.5 MG TABLET PO SCH (20:40)
[2018-10-18] MEDS: *HR* Heparin 5,000 UNIT/ML VIAL SQ SCH ×2 (05:36→17:10)
[2018-10-18 07:06] LABS: Hemoglobin 10.5 g/dL (12.9-16.9); Immature Granulocytes % 0.2 % (0-4)
[2018-10-18 07:08] LABS: Basophils # 0.1 K/mcL (0.0-0.2); Basophils % 0.9 %; Eosinophils # 0.9 K/mcL (0.0-0.6); Eosinophils % 16.6 %; Hematocrit 34.5 % (37.5-50.1); Immature Platelets 5.3 % (1.1-6.1); Lymphocytes # 1.5 K/mcL (0.6-4.6); Lymphocytes % 28.5 %; Mean Corpuscular HGB Conc 30.4 g/dL (31.6-35.5); Mean Corpuscular Hemoglobin 29.8 pg (28.0-33.3); Mean Platelet Volume 10.2 fL (9.4-12.4); Monocytes # 0.7 K/mcL (0.0-1.3); Monocytes % 12.6 %; Neutrophils # 2.2 K/mcL (1.6-8.9); Platelet Count 105 K/mcL (140-400); Red Blood Count 3.52 M/mcL (4.19-5.50); Segmented Neutrophils % 41.2 %
[2018-10-18 07:29] LABS: Calcium 8.5 mg/dL (8.6-10.3); Potassium 4.2 mEq/L (3.5-5.1)
[2018-10-18] MEDS: Venlafaxine XR (24 HR) 150 MG CAP.ER.24H PO SCH (07:51)
[2018-10-18] MEDS: *HR* LORazepam 0.5 MG TABLET PO SCH ×2 (07:51→20:34)
[2018-10-18] MEDS: Calcium Acetate 667 MG CAPSULE PO SCH ×3 (07:51→17:09)
[2018-10-18] MEDS: traMADol 50 MG TABLET PO PRN ×2 (07:51→20:34)
[2018-10-18] MEDS: Aspirin Enteric Coated 81 MG Tablet PO SCH (07:51)
[2018-10-18] MEDS: Gabapentin 100 MG CAPSULE PO SCH ×3 (07:51→20:34)
--- NOTE | 2018-10-18 08:17 | Nephrology Progress Note ---
Date of Encounter: 10/18/18 Time of Encounter: 08:14 - Assessment and Plan (1) ESRD (end stage renal disease) on dialysis Current Visit: Yes Status: Chronic HD treatments lengthened to 4 hours Continue fluid restriction Plan for HD again tomorrow Avoid nephrotoxins if possible Follow low sodium diet (2) Diastolic CHF, chronic Current Visit: Yes Status: Chronic (3) Fluid overload Current Visit: No Status: Acute 4100 ml removed with HD yesterday Qualifiers: Hypervolemia type: unspecified Qualified Code(s): E87.70 - Fluid overload, unspecified (4) Acute on chronic respiratory failure with hypoxemia Current Visit: Yes Status: Acute Fluid removal with HD should improve his respiratory function Subjective Principal diagnosis: ESRD on dialysis, CHF Interval history: Patient seen and examined. States he is feeling much better today. Objective - Vital Signs Vital signs: Vital Signs Temp Pulse Resp BP Pulse Ox 10/18/18 07:42 99 10/18/18 07:07 98.6 F 63 18 133/75 99 10/18/18 03:38 99.3 F 60 17 129/72 98 10/17/18 23:30 98.7 F 66 17 141/75 99 10/17/18 20:03 99 F 64 17 153/78 100 10/17/18 16:15 98.3 F 63 16 125/64 96 10/17/18 13:15 97.6 F 18 149/63 10/17/18 12:55 143/77 10/17/18 12:40 133/69 10/17/18 12:25 153/77 10/17/18 12:10 186/69 10/17/18 11:55 149/63 10/17/18 11:40 162/74 10/17/18 11:25 188/93 10/17/18 11:10 178/97 10/17/18 10:55 185/73 10/17/18 10:40 154/96 10/17/18 10:25 138/90 10/17/18 10:10 174/94 10/17/18 09:55 150/92 10/17/18 09:40 120/94 10/17/18 09:25 177/91 10/17/18 09:10 173/69 10/17/18 08:55 97.8 F 20 183/75 10/17/18 08:15 99 Intake and Output 10/17/18 10/18/18 10/18/18 23:59 07:59 15:59 Intake Total 0 / 0 Output Total 0 / 0 Balance 0 / 0 Intake: Oral 0 / 0 Output: Urine 0 / 0 Other: Blood Glucose* 98 67 - General Appearance General appearance: Present: frail EENT: Present: ATNC, mucous membranes moist, hearing intact, vision intact Neck: Present: supple Respiratory: Present: clear (decreased throughout) Cardiology: Present: no edema, normal S1, normal S2 Dialysis Vascular Access: Arteriovenous Fistula Gastrointestinal: Present: no tenderness, no guarding Integumentary: Present: warm and dry Neurologic: Present: alert and oriented x3 Psychiatric: Present: mood/affect appropriate, cooperative - Lab 10/18/18 06:21 10/18/18 06:21 Most recent lab results 10/18/18 06:21 Calcium 8.5 L Consult Discharge Plan - Plan Referrals: Marga Dukes, PhD [Primary Care Provider] -
--- NOTE | 2018-10-18 08:58 | Internal Med Progress Note ---
Hospitalist Progress Note - Encounter Date of Encounter: 10/18/18 Time of Encounter: 08:53 - Subjective Interval History: Patient seen and examined this morning at bedside. No acute overnight events. Denies any chest pain. Breathing improved. Denies any leg swelling. Complaints of some constipation. No new complaints. - Exam Vitals: Temp Pulse Resp BP Pulse Ox 98.6 F 63 18 133/75 99 10/18/18 07:07 10/18/18 07:07 10/18/18 07:07 10/18/18 07:07 10/18/18 07:42 Exam: General: In no acute distress. Respiratory exam: no accessory muscle use. B/l rales at base Cardiovascular exam: RRR, +S1, +S2. no murmur, gallop, rubs. Lt arm fistula with thrill GI/Abdominal exam: Non-tender, Non-distended, normal bowel sounds, soft, no peritoneal signs. Extremities exam: no pedal edema, pulses palpable in b/l lower extremities. no calf tenderness Neurological exam: CN II-XII intact, AO X3, no focal deficits. Skin exam: No skin rash noted - Assessment and Plan (1) Diastolic CHF, chronic Current Visit: Yes Status: Chronic (2) Type 2 diabetes mellitus Current Visit: Yes Status: Chronic (3) ESRD (end stage renal disease) on dialysis Current Visit: Yes Status: Chronic (4) Acute on chronic respiratory failure with hypoxemia Current Visit: Yes Status: Acute - Summary of Assessment and Plan Summary of Assessment and Plan: Assessment Acute on chronic respiratory failure with hypoxemia- resolved Diastolic CHF, acute on chronic ESRD Type 2 diabetes mellitus Chronic anemia thomcocytopenia-chronic Depression CAD DVT prophylaxis Plan - CXR with congestion and BNP elevated. Patient with fluid overload. Nephrology consulted on fluid management give patient with ESRD on HD MWF. s/p HD yesterday with 4100 fluid removal. Regular HD treatment lengthened. c/w HD per nephrology. c/w Daily weights, fluid and salt restriction. - c/w Bipap prn for respirator support - Accuchecks and SSI. Diabetic diet. - stable chronic thrombocytopenia. No signs of bleeding. stable. - c/w home aspirin, statin and beta claudia - Time Spent with Patient Total time spent is greater than 50% in coordination of care (as documented) at patient's floor/unit and/or counseling patient: Internal Medicine: Result - Labs CBC & Chem 7: 10/18/18 06:21 10/18/18 06:21 Labs: Short CBC 10/18/18 Range/Units 06:21 WBC 5.3 (4.3-11.1) K/mcL Hgb 10.5 L (12.9-16.9) g/dL Hct 34.5 L (37.5-50.1) % Plt Count 105 L (140-400) K/mcL Neutrophils # 2.2 (1.6-8.9) K/mcL BMP 10/18/18 06:21 Sodium 136 Potassium 4.2 Chloride 97 L Carbon Dioxide 29 BUN 20 Creatinine 5.23 H Glucose 71 Calcium 8.5 L - ABG Interpretation ABG results: ABG ABG pH 7.37 pH Units (7.32-7.45) 10/16/18 14:50 ABG pCO2 51 mmHg (35-45) H 10/16/18 14:50 ABG pO2 245 mmHg (85-104) H 10/16/18 14:50 ABG O2 Saturation 100 % (95-98) H 10/16/18 14:50 Consult Discharge Plan - Plan Referrals: Marga Dukes, PhD [Primary Care Provider] - (2) Type 2 diabetes mellitus Qualifiers: Diabetes mellitus medical terminologist insulin use: without [facility] use Diabetes mellitus complication status: with hypoglycemia Diabetes mellitus complication detail: with coma Qualified Code(s): E11.641 - Type 2 diabetes mellitus with hypoglycemia with coma
[2018-10-18] MEDS: Metoprolol XL (24 HR) Succ 50 MG TAB.ER.24H PO SCH (10:56)
[2018-10-18] MEDS: traZODone 50 MG TABLET PO PRN (20:34)
[2018-10-19] MEDS: *HR* Heparin 5,000 UNIT/ML VIAL SQ SCH (05:13)
[2018-10-19 06:29] LABS: Hemoglobin 10.2 g/dL (12.9-16.9)
[2018-10-19 06:31] LABS: Hematocrit 33.2 % (37.5-50.1); Immature Platelets 4.3 % (1.1-6.1); Mean Corpuscular HGB Conc 30.7 g/dL (31.6-35.5); Mean Corpuscular Volume 97.6 fL (83.0-100.0); Mean Platelet Volume 10.5 fL (9.4-12.4); Red Blood Count 3.4 M/mcL (4.19-5.50); Red Cell Distribution Width 15.9 % (11.5-14.5)
[2018-10-19 06:48] LABS: Calcium 8.9 mg/dL (8.6-10.3); Potassium 4.6 mEq/L (3.5-5.1)
[2018-10-19] MEDS: Calcium Acetate 667 MG CAPSULE PO SCH ×2 (07:51→12:08)
[2018-10-19] MEDS: *HR* LORazepam 0.5 MG TABLET PO SCH (07:52)
[2018-10-19] MEDS: Aspirin Enteric Coated 81 MG Tablet PO SCH (07:52)
[2018-10-19] MEDS: Gabapentin 100 MG CAPSULE PO SCH (07:52)
[2018-10-19] MEDS: Venlafaxine XR (24 HR) 150 MG CAP.ER.24H PO SCH (07:53)
[2018-10-19] MEDS: Metoprolol XL (24 HR) Succ 50 MG TAB.ER.24H PO SCH (07:53)
[2018-10-19] MEDS: traMADol 50 MG TABLET PO PRN (07:58)
--- NOTE | 2018-10-19 11:19 | Discharge Summary ---
- NOTES TO OUTPATIENT PROVIDER Notes to Outpatient Provider: Patient will need to follow up with nephrology. Dialysis time increase for his outpatient session to prevent readmissions. Orders not resulted at time of discharge: Pending orders 10/20/18 04:00 Basic Metabolic Panel AM 0400 CBC no Diff [Complete Blood Count w/o Diff] [HEME] AM 04010/21/18 04:00 Basic Metabolic Panel AM 0400 CBC no Diff [Complete Blood Count w/o Diff] [HEME] AM 04010/22/18 04:00 Basic Metabolic Panel AM 0400 CBC no Diff [Complete Blood Count w/o Diff] [HEME] AM 04010/23/18 04:00 Basic Metabolic Panel AM 040 CBC no Diff [Complete Blood Count w/o Diff] [HEME] AM 04010/24/18 04:00 Basic Metabolic Panel AM 040 CBC no Diff [Complete Blood Count w/o Diff] [HEME] AM 040 Date of Encounter: 10/19/18 Time of Encounter: 11:16 - Discharge Diagnosis (1) Diastolic CHF, chronic Priority: Secondary Status: Chronic (2) Type 2 diabetes mellitus Priority: Secondary Status: Chronic Qualifiers: Diabetes mellitus terminal operator insulin use: without terminal operator use Diabetes mellitus complication status: with hypoglycemia Diabetes mellitus complication detail: with coma Qualified Code(s): E11.641 - Type 2 diabetes mellitus with hypoglycemia with coma (3) ESRD (end stage renal disease) on dialysis Priority: Secondary Status: Chronic (4) Acute on chronic respiratory failure with hypoxemia Priority: Primary Status: Acute (5) Fluid overload Priority: Primary Status: Acute Qualifiers: Hypervolemia type: unspecified Qualified Code(s): E87.70 - Fluid overload, unspecified (6) Depression Priority: Secondary Status: Acute Qualifiers: Depression Type: reactive depression Qualified Code(s): F32.9 - Major depressive disorder, single episode, unspecified (7) CAD (coronary artery disease) Priority: Secondary Status: Chronic Qualifiers: Coronary Disease-Associated Artery/Lesion type: bypass graft [place] vs. transplanted heart: [place] heart Associated angina: without angina Qualified Code(s): I25.810 - Atherosclerosis of coronary artery bypass graft(s) without angina pectoris (8) Thrombocytopenia Priority: Secondary Status: Chronic (9) Liver cirrhosis Priority: Secondary Status: Chronic Qualifiers: Hepatic cirrhosis type: unspecified hepatic cirrhosis Ascites presence: with ascites Qualified Code(s): K74.60 - Unspecified cirrhosis of liver; R18.8 - Other ascites Hospital course: Mr. Esquivel is a 78 year old male past medical history of CHF, CAD, end-stage renal disease on dialysis, hypertension, cirrhosis, chronic respiratory failure came in from [facility] with complaint of shortness of breath. Patient was found to have fluid overload. Patient recently finished treatment for pneumonia. No signs of infection were identified. Patient was dialyzed after which he improved. His dialysis time was increased to 4 hours by nephrology. He has chronic stable anemia and thrombocytopenia likely from his liver disease. He is otherwise stable to be discharged today after dialysis and to continue increased time with dialysis per nephrology. [facility] will be [facility]. Discharge discussed with: patient, nurse, social work, protection consultant - Time Spent with Patient Total time spent providing and/or coordinating discharge services: Time spent: Greater than 30 minutes (35) - Discharge Medications Prescriptions: Continued Venlafaxine XR (24 HR) [Effexor Xr] 150 mg PO DAILY Clopidogrel [Plavix] 75 mg PO HS Trazodone HCl 100 mg PO HS PRN PRN Reason: Sleep Calcium Acetate [Phos-LO] 1,334 mg PO TIDWM Nitroglycerin [Nitrostat] 0.4 mg SL Q5M PRN PRN Reason: Chest Pain Aspirin [Lo-Dose Aspirin EC] 81 mg PO DAILY Atorvastatin Calcium [Lipitor] 20 mg PO HS Metoprolol Succinate 200 mg PO DAILY #0 Ondansetron ODT [Zofran ODT] 4 mg SL Q6HR PRN #20 tab.rapdis PRN Reason: Nausea And Vomiting Gabapentin [Neurontin] 100 mg PO TID Tramadol HCl [Ultram] 50 mg PO BID PRN PRN Reason: Pain Acetaminophen [Tylenol 8 Hour] 650 mg PO Q6H PRN PRN Reason: Pain Guaifenesin [Mucinex] 600 mg PO BID PRN PRN Reason: Cough Ipratropium/Albuterol Neb [Duoneb] 3 ml IH Q6HR PRN PRN Reason: Shortness Of Breath LORazepam [Ativan] 0.5 mg PO BID Oxycodone HCl [Roxybond] 5 mg PO QID PRN PRN Reason: Pain Discontinued Levofloxacin [Levaquin] 500 mg PO DAILY Home Medications: Clopidogrel [Plavix] 75 mg PO HS 01/15/18 [History] Venlafaxine XR (24 HR) [Effexor Xr] 150 mg PO DAILY 01/15/18 [History] Trazodone HCl 100 mg PO HS PRN 01/31/18 [History] Calcium Acetate [Phos-LO] 1,334 mg PO TIDWM 07/03/18 [History] Nitroglycerin [Nitrostat] 0.4 mg SL Q5M PRN 07/04/18 [History] Aspirin [Lo-Dose Aspirin EC] 81 mg PO DAILY 08/23/18 [History] Atorvastatin Calcium [Lipitor] 20 mg PO HS 08/23/18 [History] Metoprolol Succinate 200 mg PO DAILY #0 08/24/18 [Rx] Ondansetron ODT [Zofran ODT] 4 mg SL Q6HR PRN #20 tab.rapdis 08/24/18 [Rx] Gabapentin [Neurontin] 100 mg PO TID 10/05/18 [History] Tramadol HCl [Ultram] 50 mg PO BID PRN 10/05/18 [History] Acetaminophen [Tylenol 8 Hour] 650 mg PO Q6H PRN 10/17/18 [History] Guaifenesin [Mucinex] 600 mg PO BID PRN 10/17/18 [History] Ipratropium/Albuterol Neb [Duoneb] 3 ml IH Q6HR PRN 10/17/18 [History] LORazepam [Ativan] 0.5 mg PO BID 10/17/18 [History] Oxycodone HCl [Roxybond] 5 mg PO QID PRN 10/17/18 [History] Allergies/Adverse Reactions: Allergy/AdvReac Type Severity Reaction Status Date / Time No Known Allergies Allergy Verified 10/17/18 10:50 Date of admission: 10/16/18 17:58 Primary care physician: Marga Dukes Consults: 10/16/18 16:37 Consult to Nephrology [CONS] Stat Consulting Provider: Kidney Faye/AGUSTINA/TRAN/SHRADDHA Reason for Consult: Fluid overload/ ESRD Time Notified: 16:37 Call Completed: Yes 10/17/18 07:15 Consult to Dialysis [CONS] QMWF 10/17/18 08:17 Consult to Nurse Navigator [CONS] Routine Comment: CHF, ESRD Consult to Power Washer [CONS] Routine Reason for SW Consult: PATIENT FROM ECF 10/17/18 18:12 Consult to Nutrition [CONS] Routine Comment: fluid restriciton; weight loss per patient; Consulting Provider: NUTRITION Reason for Dietary Consult: PO Supplementation 10/19/18 07:15 Consult to Dialysis [CONS] QMWF 10/21/18 07:15 Consult to Dialysis [CONS] QMWF Discharging clinician: Tg He - Constitutional Vitals: Temp Pulse Resp BP Pulse Ox 98.2 F 65 16 143/62 96 10/19/18 06:31 10/19/18 06:31 10/19/18 06:31 10/19/18 04:00 10/19/18 06:31 Exam: General: In no acute distress. Respiratory exam: no accessory muscle use. B/l rales at base Cardiovascular exam: RRR, +S1, +S2. no murmur, gallop, rubs. Lt arm fistula with thrill GI/Abdominal exam: Non-tender, Non-distended, normal bowel sounds, soft, no peritoneal signs. Extremities exam: no pedal edema, pulses palpable in b/l lower extremities. no calf tenderness Neurological exam: CN II-XII intact, AO X3, no focal deficits. Skin exam: No skin rash noted - Patient Status Disposition: Transfer SNF Condition: Serious - Discharge Instructions Follow Up With: Marga Dukes, PhD [Primary Care Provider] - - Diet and Activity Activity: as per physical therapy, increase activity as tolerated
--- NOTE | 2018-10-19 11:34 | Physician Discharge Referral ---
ExtendedCare Referral Info Institutional Level of Care: Skilled - Diagnosis (1) Diastolic CHF, chronic Status: Chronic (2) Type 2 diabetes mellitus Status: Chronic (3) ESRD (end stage renal disease) on dialysis Status: Chronic (4) Acute on chronic respiratory failure with hypoxemia Status: Acute (5) Fluid overload Status: Acute (6) Depression Status: Acute (7) CAD (coronary artery disease) Status: Chronic (8) Thrombocytopenia Status: Chronic (9) Liver cirrhosis Status: Chronic - Transfer Medications Prescriptions: LORazepam [Ativan] 0.5 mg PO BID 3 Days #6 tablet Gabapentin [Neurontin] 100 mg PO TID 3 Days #9 capsule Home Medications: Clopidogrel [Plavix] 75 mg PO HS 01/15/18 [History] Venlafaxine XR (24 HR) [Effexor Xr] 150 mg PO DAILY 01/15/18 [History] Trazodone HCl 100 mg PO HS PRN 01/31/18 [History] Calcium Acetate [Phos-LO] 1,334 mg PO TIDWM 07/03/18 [History] Nitroglycerin [Nitrostat] 0.4 mg SL Q5M PRN 07/04/18 [History] Aspirin [Lo-Dose Aspirin EC] 81 mg PO DAILY 08/23/18 [History] Atorvastatin Calcium [Lipitor] 20 mg PO HS 08/23/18 [History] Metoprolol Succinate 200 mg PO DAILY #0 08/24/18 [Rx] Ondansetron ODT [Zofran ODT] 4 mg SL Q6HR PRN #20 tab.rapdis 08/24/18 [Rx] Tramadol HCl [Ultram] 50 mg PO BID PRN 10/05/18 [History] Acetaminophen [Tylenol 8 Hour] 650 mg PO Q6H PRN 10/17/18 [History] Guaifenesin [Mucinex] 600 mg PO BID PRN 10/17/18 [History] Ipratropium/Albuterol Neb [Duoneb] 3 ml IH Q6HR PRN 10/17/18 [History] Gabapentin [Neurontin] 100 mg PO TID 3 Days #9 capsule 10/19/18 [Rx] LORazepam [Ativan] 0.5 mg PO BID 3 Days #6 tablet 10/19/18 [Rx] Allergies/Adverse Reactions: Allergy/AdvReac Type Severity Reaction Status Date / Time No Known Allergies Allergy Verified 10/17/18 10:50 - Respiratory Orders Smoking Cessation: Smoking cessation has been advised. For more information, call the [place] Tobacco Quit Line at 1-467-JFZE-NOW. CERTIFICATION: I certify that the transfer of the above named patient to an Extended Care Facility is necessary for the continuing treatment of the diagnosis listed. The above information is true and accurate reflection of patient's current condition. Confidential - Redisclosure prohibited without a patient's written consent.
--- NOTE | 2018-10-19 11:45 | Nephrology Progress Note ---
Date of Encounter: 10/19/18 Time of Encounter: 09:38 - Assessment and Plan (1) ESRD (end stage renal disease) on dialysis Status: Chronic Dialysis note: The patient tolerated hemodialysis well, without cramps, and good blood flow as well as dialysate flows. To help maintain an idealized volume status, i.e. dry weight, I contacted the outpatient dialysis unit and ordered an increased treatment time to 4 hours. I also counseled the patient at length to consume only a fluid restriction of less than 48 ounces per day as well as a low sodium diet. This approach should hopefully help reduce the number of frequent readmissions for volume/edema, however he does have a known history of noncompliance. Okay to discharge from a nephrology perspective, as long as he follows up at his outpatient dialysis unit every Wednesday/Wednesday/Wednesday. Subjective Principal diagnosis: ESRD on dialysis, CHF Interval history: The patient was seen and examined while on hemodialysis. He did not affirm having cramping, chest pain, nausea, or other complaints while receiving dialysis. Objective - Vital Signs Vital signs: Vital Signs Temp Pulse Resp BP Pulse Ox 10/19/18 06:31 98.2 F 65 16 96 10/19/18 04:00 98.0 F 74 17 143/62 98 10/19/18 00:03 97.9 F 68 17 148/68 97 10/18/18 19:26 97.8 F 65 17 157/70 96 10/18/18 16:37 98.0 F 60 16 140/72 98 Intake and Output 10/18/18 10/19/18 10/19/18 23:59 07:59 15:59 Intake Total 240 / 720 240 / 240 Output Total 0 / 0 Balance 240 / 720 240 / 240 Intake: Oral 240 / 720 240 / 240 Output: Urine 0 / 0 Other: Meal Dinner Breakfast Percent of Meal Consumed 100% 100% Weight 93 kg Blood Glucose* 104 132 107 Patient Weight 10/19/18 23:59 Weight 93 kg - General Appearance General appearance: Present: well-developed, well-nourished, appears started age EENT: Present: ATNC, PERRL, mucous membranes moist Neck: Present: no JVD, supple Respiratory: Present: clear Cardiology: Present: no edema, normal S1, normal S2 Dialysis Vascular Access: Arteriovenous Fistula (left upper extremity) thrill: Yes bruit: Yes Neurologic: Present: no focal deficit, no asterixis, alert and oriented x3 Psychiatric: Present: mood/affect appropriate, cooperative - Lab 10/19/18 06:00 10/19/18 06:00 Most recent lab results 10/19/18 06:00 Calcium 8.9 Consult Discharge Plan - Plan Referrals: Marga Dukes, PhD [Primary Care Provider] - Prescriptions: LORazepam [Ativan] 0.5 mg PO BID 3 Days #6 tablet Gabapentin [Neurontin] 100 mg PO TID 3 Days #9 capsule Tramadol HCl [Ultram] 50 mg PO BID PRN 3 Days #6 tablet PRN Reason: Pain
[2018-10-19] MEDS ORDERED: 0.9 % Sodium Chloride 1,000 ML ONE (11:57)
[2018-10-19 13:26] VITALS: BP 130/67
== END 2018-10-19 15:05 | DRG 291 ==
LOC: 3BNU 14:19 → EMEROOARM 14:19 → OBSVTOIN 17:58 → SUATTDRO 17:58 → 3BNU 19:33 → 2ANU 10-17 14:24
PROVIDERS: ADMIT Internal Medicine Nephrology; ATTEND Internal Medicine

== ENCOUNTER 2018-11-09 06:46 | Inpatient (IN) ==
--- NOTE | 2018-11-09 07:08 | Emergency Department Note ---
Disposition Clinical Impression: ST elevation, Elevated troponin I level, Shortness of breath Disposition: Admitted As Inpatient Condition: Fair Time of Disposition: 07:30 General Adult HPI - General Stated complaint: jaclyn Time Seen by Provider: 11/09/18 06:52 Source: patient Mode of arrival: EMS Limitations: no limitations Nursing Notes Reviewed: Yes Vital Signs Reviewed: Yes - History of Present Illness HPI Narrative: 78-year-old male from [facility] presents with shortness of breath. Patient stated he suddenly have shortness breath yesterday . He had 3 breath treatment there without improvement. Pt stated he has mild dry cough. He had chest xray yesterday. He was told that there was fluid in his right lung. Pt has cardiac by-pass in May 2017. Pt is on Plavix. Pt has history of HTN, chronic renal failure, congestive heart failure. Pt is usually on NC 2 L. His O2 sat dropped to 79-82 this morning. Pt's O2 stat is above 92 with NC 4 L. Onset (ago): day(s) (1) Location: chest Radiation: non-radiation - Related Data Home Medications Medication Instructions Recorded Confirmed Clopidogrel [Plavix] 75 mg PO HS 01/15/18 11/09/18 Venlafaxine XR (24 HR) [Effexor Xr] 150 mg PO DAILY 01/15/18 11/09/18 Trazodone HCl 100 mg PO HS PRN 01/31/18 11/09/18 Calcium Acetate [Phos-LO] 1,334 mg PO TIDWM 07/03/18 11/09/18 Nitroglycerin [Nitrostat] 0.4 mg SL Q5M PRN 07/04/18 11/09/18 Aspirin [Lo-Dose Aspirin EC] 81 mg PO DAILY 08/23/18 11/09/18 Atorvastatin Calcium [Lipitor] 20 mg PO HS 08/23/18 11/09/18 Acetaminophen [Tylenol 8 Hour] 650 mg PO Q6H PRN 10/17/18 11/09/18 Guaifenesin [Mucinex] 600 mg PO BID PRN 10/17/18 11/09/18 Ipratropium/Albuterol Neb [Duoneb] 3 ml IH Q6HR PRN 10/17/18 11/09/18 Gabapentin [Neurontin] 100 mg PO TID 11/09/18 11/09/18 LORazepam [Ativan] 1 mg PO BID 11/09/18 11/09/18 Ondansetron ODT [Zofran ODT] 4 mg SL Q6HR PRN 11/09/18 11/09/18 Previous Rx's Medication Instructions Recorded Metoprolol Succinate 200 mg PO DAILY #0 08/24/18 Allergies Allergy/AdvReac Type Severity Reaction Status Date / Time No Known Allergies Allergy Verified 11/09/18 07:04 Constitutional: Denies: fever, chills Eyes: Denies: eye pain ENT ED: Denies: ear pain Cardiovascular: Denies: chest pain Respiratory: Reports: cough, dyspnea Gastrointestinal: Denies: abdominal pain Genitourinary: Denies: urgency Musculoskeletal: Denies: back pain Integumentary: Denies: rash Neurological: Denies: headache Psychiatric: Denies: anxiety Endocrine: Denies: fatigue Hematological/Lymphatic: Denies: easy bleeding Allergic/Immunologic: Denies: facial swelling Past Medical History - Past Medical History Medical history: Reports: aortic aneurysm, arthritis, CHF, coronary artery disease, diabetes, dialysis, hyperlipidemia, hypertension, renal disease Surgical history: Reports: angioplasty/stent, coronary bypass (CABG), orthopedic, other, other Psychiatric history: Reports: anxiety, depression - Social History Smoking Status: Former smoker Smokeless Tobacco Status: No Alcohol use: Reports: none Drug use: Reports: none Physical Exam - General Limitations: no limitations General appearance: alert - Head Head exam: atraumatic - Eye Eye exam: Present: normal appearance - ENT ENT exam: normal exam - Neck Neck exam: Present: normal inspection - Chest Chest inspection: Present: normal inspection - Respiratory Respiratory exam: Present: normal lung sounds bilaterally. Absent: respiratory distress, wheezes - Cardiovascular Cardiovascular exam: Present: tachycardia, +S1 - Abdominal Exam Abdominal exam: Present: soft, Non-Tender - Extremities Exam Extremities exam: Present: normal inspection, full ROM. Absent: tenderness - Back Exam Back exam: Present: normal inspection, full ROM. Absent: tenderness - Neurological Exam Neurological exam: Present: alert, oriented X3 - Psychiatric Psychiatric exam: Present: normal affect - Skin Skin exam: Present: warm, intact Course Vital Signs Temperature 97.6 F 11/09/18 07:04 Pulse Rate 100 11/09/18 07:04 Respiratory Rate 20 11/09/18 07:04 Blood Pressure 151/95 06/12/19 07:04 O2 Sat by Pulse Oximetry 100 11/09/18 07:04 Temperature 97.6 F 11/09/18 07:04 Pulse Rate 96 11/09/18 09:04 Respiratory Rate 18 11/09/18 09:04 Blood Pressure 117/88 11/09/18 09:04 O2 Sat by Pulse Oximetry 100 11/09/18 09:04 Oxygen Delivery Oxygen Delivery Nasal Cannula Medical Decision Making - [facility] Narrative Medical decision making narrative: 78-year-old male with history of chronic renal failure, DE, bypass, congestive heart failure, presents with acute shortness of breath since yesterday. O2 sat dropped to 78-82 with 2 L nasal cannula, patient reported fluids in right lung (from chest xray) yesterday. Patient had bypass in May 2017. EKG in the ED indicated elevated ST in leads III, aVF and V6 (New from old EKG) troponin elevated 0.12. Chest x-ray indicated mild effusion. Spoke with on-call foreclosure paralegal Dr. Deleon. He consider patient is not a candidate for interventional evaluation at this time. Heparin drip started in the ED. Spoke with house carpenter helper Dr. Reid. He is on board to take care of patient in the floor. Report given to hospitalist Dr. Mcmahon. Pt is accepted. - Lab Data Lab results reviewed: Yes I reviewed the patient's lab results. Result diagrams: 11/09/18 07:04 11/09/18 07:04 Lab Results 11/09/18 11/09/18 11/09/18 Range/Units 07:04 07:04 07:04 WBC 5.0 (4.3-11.1) K/mcL RBC 3.59 L (4.19-5.50) M/mcL Hgb 10.7 L (12.9-16.9) g/dL Hct 35.0 L (37.5-50.1) % MCV 97.5 (83.0-100.0) fL MCH 29.8 (28.0-33.3) pg MCHC 30.6 L (31.6-35.5) g/dL RDW 15.7 H (11.5-14.5) % Plt Count 72 L (140-400) K/mcL MPV 10.3 (9.4-12.4) fL Immature Gran % 0.2 (0-4) % Seg Neutrophils % 47.8 % Lymphocytes % 23.1 % Monocytes % 8.0 % Eosinophils % 20.3 % Basophils % 0.6 % Neutrophils # 2.4 (1.6-8.9) K/mcL Lymphocytes # 1.2 (0.6-4.6) K/mcL Monocytes # 0.4 (0.0-1.3) K/mcL Eosinophils # 1.0 H (0.0-0.6) K/mcL Basophils # 0.0 (0.0-0.2) K/mcL Platelet Estimate Slight Decrease L (Normal) Immature Plt Fraction 6.6 H (1.1-6.1) % PT (9.4-12.1) Seconds INR Heparin Anti-Xa, Unfract (0.30-0.70) IU/mL Sodium 136 (136-145) mEq/L Potassium 4.7 (3.5-5.1) mEq/L Chloride 98 (98-107) mEq/L Carbon Dioxide 31 H (23-29) mEq/L BUN 30 H (8-23) mg/dL Creatinine 7.04 H (0.70-1.30) mg/dL Est GFR ( Amer) 9 L (> 60) Est GFR (Non-Af Amer) 8 L (> 60) BUN/Creatinine Ratio 4 L (6-26) Glucose 130 H (70-105) mg/dL Calculated Osmolality 290 (280-300) Lactic Acid 1.2 (0.5-2.2) mmol/L Calcium 9.1 (8.6-10.3) mg/dL Total Bilirubin 0.5 (0.3-1.0) mg/dL AST 15 (13-39) Units/L ALT 10 (7-52) Units/L Alkaline Phosphatase 109 H (34-104) Units/L Troponin I 0.12 H* (< 0.04) ng/mL B-Natriuretic Peptide (Less than 100) pg/mL Serum Total Protein 8.0 (6.4-8.9) g/dL Albumin 3.2 L (3.5-5.7) g/dL Globulin 4.8 H (2.4-3.5) g/dL Albumin/Globulin Ratio 0.7 L (1.1-2.2) 06/12/19 06/12/19 Range/Units 07:04 07:04 WBC (4.3-11.1) K/mcL RBC (4.19-5.50) M/mcL Hgb (12.9-16.9) g/dL Hct (37.5-50.1) % MCV (83.0-100.0) fL MCH (28.0-33.3) pg MCHC (31.6-35.5) g/dL RDW (11.5-14.5) % Plt Count (140-400) K/mcL MPV (9.4-12.4) fL Immature Gran % (0-4) % Seg Neutrophils % % Lymphocytes % % Monocytes % % Eosinophils % % Basophils % % Neutrophils # (1.6-8.9) K/mcL Lymphocytes # (0.6-4.6) K/mcL Monocytes # (0.0-1.3) K/mcL Eosinophils # (0.0-0.6) K/mcL Basophils # (0.0-0.2) K/mcL Platelet Estimate (Normal) Immature Plt Fraction (1.1-6.1) % PT 14.4 H (9.4-12.1) Seconds INR 1.3 Heparin Anti-Xa, Unfract 0.00 L (0.30-0.70) IU/mL Sodium (136-145) mEq/L Potassium (3.5-5.1) mEq/L Chloride (98-107) mEq/L Carbon Dioxide (23-29) mEq/L BUN (8-23) mg/dL Creatinine (0.70-1.30) mg/dL Est GFR ( Amer) (> 60) Est GFR (Non-Af Amer) (> 60) BUN/Creatinine Ratio (6-26) Glucose (70-105) mg/dL Calculated Osmolality (280-300) Lactic Acid (0.5-2.2) mmol/L Calcium (8.6-10.3) mg/dL Total Bilirubin (0.3-1.0) mg/dL AST (13-39) Units/L ALT (7-52) Units/L Alkaline Phosphatase (34-104) Units/L Troponin I (< 0.04) ng/mL B-Natriuretic Peptide 3320 H (Less than 100) pg/mL Serum Total Protein (6.4-8.9) g/dL Albumin (3.5-5.7) g/dL Globulin (2.4-3.5) g/dL Albumin/Globulin Ratio (1.1-2.2) - Radiology Data Radiology results reviewed: Yes I reviewed the patient's radiology results. cc: PCP NO; Alex Gamboa; Sam Strange; ~ EXAMINATION: ONE XRAY VIEW OF THE CHEST 11/09/2018 7:12 am COMPARISON: Chest x-ray 10/16/2018 HISTORY: ORDERING SYSTEM PROVIDED HISTORY: shortness of breath FINDINGS: Prominence of the pulmonary vasculature with increased interstitial markings. Small pleural effusions. Cardiac and mediastinal structures are unchanged. Sternotomy wires are present. XR/XR chest 1V portable IMPRESSION: Findings suggest mild pulmonary vascular congestion with small effusions. D/ / Poncho Ray MD / Poncho Ray MD Interpreting Provider: Poncho Ray MD - EKG Data EKG #1 EKG attestation: Yes I reviewed and interpreted this EKG. Rate: tachycardia ST segment elevation in: III, aVF, v6 Attestation Statement - Attestation Attestation: Patient was seen and examined by myself at the bedside here in the emergency room in conjunction with the physician assistant child care teacher. The note was agreed upon. The patient is not complaining of any type of chest discomfort. He does have diminished breath sounds with some bibasilar crackles on examination. He does have a murmur on examination. The patient was noted to have EKG changes from one month ago. The case was discussed with cardiology and cardiac intervention list after the EKG was obtained. At this point in time given his other, comorbidities as well as the fact that he is not having any type of chest discomfort and that he is a overall poor candidate for cardiac intervention, they do not want to take him at this point time to the cardiac Api Product Manager. The patient did have a slightly elevated troponin, this could be secondary to his end-stage renal disease. Patient at this point in time is also hypoxic. Patient was placed on 4 L of oxygen, O2 saturation out of her percent. The patient at this point time is going to be admitted for further evaluation to the hospitalist. CRITICAL CARE TIME OF 35 MINUTES PERFORMING THIS INDIVIDUAL OUTSIDE OF SEPARATELY BILLABLE PROCEDURES. THIS INCLUDES BEDSIDE EVALUATION, INTERPRETATION OF EKG AND LAB TESTS AND CONSULTATIONS.
[2018-11-09] MEDS ORDERED: Aspirin 325 MG TABLET PO ONE (07:11)
[2018-11-09 07:22] LABS: Immature Granulocytes % 0.2 % (0-4)
[2018-11-09 07:23] LABS: Basophils % 0.6 %
[2018-11-09 07:24] LABS: Eosinophils % 20.3 %; Hemoglobin 10.7 g/dL (12.9-16.9); Immature Platelets 6.6 % (1.1-6.1); Lymphocytes # 1.2 K/mcL (0.6-4.6); Lymphocytes % 23.1 %; Mean Corpuscular HGB Conc 30.6 g/dL (31.6-35.5); Mean Corpuscular Hemoglobin 29.8 pg (28.0-33.3); Mean Corpuscular Volume 97.5 fL (83.0-100.0); Mean Platelet Volume 10.3 fL (9.4-12.4); Monocytes # 0.4 K/mcL (0.0-1.3); Neutrophils # 2.4 K/mcL (1.6-8.9); Red Blood Count 3.59 M/mcL (4.19-5.50); Red Cell Distribution Width 15.7 % (11.5-14.5); Segmented Neutrophils % 47.8 %
[2018-11-09 07:27] LABS: Platelet Count 72 K/mcL (140-400)
[2018-11-09 07:44] LABS: Albumin 3.2 g/dL (3.5-5.7); Albumin/Globulin Ratio 0.7 (1.1-2.2); Bilirubin,Total 0.5 mg/dL (0.3-1.0); Calcium 9.1 mg/dL (8.6-10.3); Globulin 4.8 g/dL (2.4-3.5); Potassium 4.7 mEq/L (3.5-5.1)
[2018-11-09] MEDS ORDERED: Furosemide 40 MG/4 ML VIAL IVP ONE ×2 (07:48→08:02)
[2018-11-09 07:51] LABS: Troponin I 0.12 ng/mL (< 0.04)
[2018-11-09 07:52] LABS: Platelet Estimate Slight Decrease (Normal)
[2018-11-09] MEDS ORDERED: Heparin 25,000 UNIT/250 ML D5W 25,000 UNIT/250 ML IV.SOLN IVC SCH ×2 (08:00→09:45)
[2018-11-09 08:30] LABS: INR 1.3; Prothrombin Time 14.4 Seconds (9.4-12.1)
--- NOTE | 2018-11-09 08:59 | Internal Med History&Physical ---
<Santana Bauer - Last Filed: 11/09/18 09:56> Date of Encounter: 11/09/18 Time of Encounter: 08:55 Internal Medicine - H&P: HPI Chief complaint: shortness of breath Admitted From: Emergency Dept Plans for Post Hospital Care: Home History of present illness: Mr. Esquivel is a 78 year old male with PMHX of HTN, HLD, type 2DM, systolic CHF, ESRD on dialysis MWF, COPD, CAD s/p CABG, liver cirrhosis, chronic respiratory failure. Patient comes from [facility]. He was recently hospitalized from 10/16-10/19 after being treated for fluid overload and his dialysis session was increased. patient states that he has shortness of breath that started yesterday evening. He had multiple breathing treatments that did not relieve his shortness of breath. He does have history of CAD with CABG and denies any chest pain currently, and denies chest pain that feels like his prior episodes. He reports some mild abdominal pain, and denies nausea, vomiting, diarrhea, fevers, chills, hematochezia, melena, hematuria. Past Med Surg Social Fam HX - Past Medical History Medical history: aortic aneurysm, arthritis, CHF, coronary artery disease, d iabetes, dialysis, hyperlipidemia, hypertension, renal disease Additional medical history: BLADDER NECK CONTRACTURE, SQUAMOUS CELL CANCER. dialysis M,W, F Psychiatric history: anxiety, depression - Past Surgical History Surgical History: angioplasty/stent, coronary bypass (CABG), orthopedic, other, other Additional surgical history: Back surgery (1998), Right hand middle finger ampu tation (date unknown), triple bypass - Social History Smoking Status: Former smoker Smokeless Tobacco Status: No Alcohol use: none Drug use: none - Family History Father Adopted: No Family Member Ethnicity: Non- Living Status: Hx Family Cardiac Disorders: Yes (ND) Mother Adopted: No Family Member Ethnicity: Non- Living Status: Hx Family Cancer: Yes Brother Family Member Ethnicity: Non- Living Status: Still Living Sister Adopted: No Family Member Ethnicity: Non- Living Status: Still Living Hx Family Cardiac Disorders: Yes Hx Family Respiratory Disorders: No Hx Family Cancer: Yes Hx Family GI Disorders: No Hx Family Endocrine Disorder: Yes Hx Family Neuromuscular Disorders: No Hx Family Neurologic Disorders: No Hx Family HEENT Disorders: No Hx Family Autoimmune Disorders: No Internal Medicine - H&P: Meds Clopidogrel [Plavix] 75 mg PO 199901/15/18 [History] Venlafaxine XR (24 HR) [Effexor Xr] 150 mg PO 199901/15/18 [History] Trazodone HCl 100 mg PO HS PRN 01/31/18 [History] Calcium Acetate [Phos-LO] 1,334 mg PO TIDWM 07/03/18 [History] Nitroglycerin [Nitrostat] 0.4 mg SL Q5M PRN 07/04/18 [History] Aspirin [Lo-Dose Aspirin EC] 81 mg PO 1600 08/23/18 [History] Atorvastatin Calcium [Lipitor] 20 mg PO 199908/23/18 [History] Acetaminophen [Tylenol 8 Hour] 650 mg PO Q6H PRN 10/17/18 [History] Guaifenesin [Mucinex] 600 mg PO BID PRN 10/17/18 [History] Ipratropium/Albuterol Neb [Duoneb] 3 ml IH Q6HR PRN 10/17/18 [History] Gabapentin [Neurontin] 100 mg PO TID 11/09/18 [History] LORazepam [Ativan] 1 mg PO BID 11/09/18 [History] Metoprolol Succinate 200 mg PO 1600 11/09/18 [History] Ondansetron ODT [Zofran ODT] 4 mg SL Q6HR PRN 11/09/18 [History] Tramadol HCl [Ultram] 50 mg PO BID PRN 11/09/18 [History] Allergy/AdvReac Type Severity Reaction Status Date / Time No Known Allergies Allergy Verified 11/09/18 07:04 All Systems PM: A 10-system review of systems was performed and is negative for pertinent findings except as documented above in the HPI. - Constitutional Constitutional: as per HPI - EENT Eyes: as per HPI Ears: as per HPI Nose, mouth and throat: as per HPI - Breasts Breasts: as per HPI - Cardiovascular Cardiovascular ROS IM: as per HPI - Respiratory Respiratory: as per HPI - Gastrointestinal Gastrointestinal: as per HPI - Genitourinary Genitourinary ROS male: as per HPI - Musculoskeletal Musculoskeletal ROS IM: as per HPI - Integumentary Integumentary IM: as per HPI - Neurological Neurological ROS: as per HPI - Psychiatric Psychiatric: as per HPI - Endocrine Endocrine IM: as per HPI - Hematologic/Lymphatic Hematologic/Lymphatic: as per HPI - Allergic/Immunologic Allergic/Immunologic: as per HPI - Constitutional Vitals: Temp Pulse Resp BP Pulse Ox 97.6 F 98 18 162/96 100 11/09/18 07:04 11/09/18 07:55 11/09/18 07:55 11/09/18 07:55 11/09/18 07:55 Exam: alert and oriented x3 - Head Head exam: Present: atraumatic, normocephalic - Neck Neck exam general surgery: Present: supple, trachea midline - Respiratory Additional comments: decreased breath sounds in right lower lobe. diffuse rales present in bilateral upper lobes and left lower lobe. - Cardiovascular Cardiovascular exam: Present: RRR, +S1, +S2 - GI/Abdominal GI/Abdominal exam: Present: distended, normal bowel sounds, soft. Absent: tende rness - Extremities Exam Extremities exam: Absent: cyanotic, pedal edema - Neurological Exam Neurological exam: Present: alert, oriented X3, no focal deficits - Psychiatric Psychiatric exam: Present: normal affect, normal mood - Skin Skin exam: Present: intact Internal Med - H&P Results - Labs CBC & Chem 7: 11/09/18 07:04 11/09/18 07:04 Labs: Short CBC 11/09/18 Range/Units 07:04 WBC 5.0 (4.3-11.1) K/mcL Hgb 10.7 L (12.9-16.9) g/dL Hct 35.0 L (37.5-50.1) % Plt Count 72 L (140-400) K/mcL Neutrophils # 2.4 (1.6-8.9) K/mcL BMP 11/09/18 07:04 Sodium 136 Potassium 4.7 Chloride 98 Carbon Dioxide 31 H BUN 30 H Creatinine 7.04 H Glucose 130 H Calcium 9.1 Cardiac Enzymes 11/09/18 Range/Units 07:04 Troponin I 0.12 H* (< 0.04) ng/mL Liver Function 11/09/18 Range/Units 07:04 Total Bilirubin 0.5 (0.3-1.0) mg/dL AST 15 (13-39) Units/L ALT 10 (7-52) Units/L Alkaline Phosphatase 109 H (34-104) Units/L Albumin 3.2 L (3.5-5.7) g/dL - Impressions ITS Impressions Chest X-Ray 11/09/18 06:58 IMPRESSION: Findings suggest mild pulmonary vascular congestion with small effusions. D/ / Poncho Ray MD / Poncho Ray MD Interpreting Provider: Poncho Ray MD - Assessment and Plan (1) NSTEMI (non-ST elevated myocardial infarction) Current Visit: No Status: Acute Assessment and plan: patient complaining of [facility] of breath [facility], not relieved with breathing treatment. EKG shows ST elevations in leads III, AVF with diffuse T wave inversions and ST depressions in V3-V6. SHALOM: 6 CXR showed pulmonary vascular congestion Plan: s/p 80mg IV lasix in ED. will hold off on further diuresis as patient is scheduled to be dialyzed today. patient evaluated by cardiology, recommended medical management at this time. low dose heparin gtt ASA, statin, BB hold plavix for now, as patient is on heparin gtt and has low platelets with hx of cirrhosis. appreciate further cardio recs (2) CAD (coronary artery disease) Current Visit: No Status: Chronic Assessment and plan: s/p CABG Qualifiers: Coronary Disease-Associated Artery/Lesion type: bypass graft [place] vs. transplanted heart: [place] heart Associated angina: without angina Qualified Code(s): I25.810 - Atherosclerosis of coronary artery bypass graft(s) without angina pectoris (3) Diabetes Current Visit: No Status: Chronic Assessment and plan: history of type II DM. 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: without alf use Diabetes mellitus complication status: with kidney complications Diabetes mellitus complication detail: with chronic kidney disease Chronic kidney disease stage: on chronic dialysis Qualified Code(s): E11.22 - Type 2 diabetes mellitus with diabetic chronic kidney disease; N18.6 - End stage renal disease; Z99.2 - Dependence on renal dialysis (4) HTN (hypertension) Current Visit: No Status: Chronic Qualifiers: Hypertension type: essential hypertension Qualified Code(s): I10 - Essential (primary) hypertension (5) HLD (hyperlipidemia) Current Visit: No Status: Chronic Qualifiers: Hyperlipidemia type: unspecified Qualified Code(s): E78.5 - Hyperlipidemia, unspecified (6) S/P CABG x 3 Current Visit: No Status: Acute (7) Elevated troponin Current Visit: No Status: Chronic Assessment and plan: likely secondary to NSTEMI. (8) CHF (congestive heart failure) Current Visit: No Status: Chronic Assessment and plan: last echo from 08/16 showed LVEF 45-50%, mild LVH, mild , no pulmonary hypertension Qualifiers: Heart failure type: diastolic Heart failure chronicity: acute Qualified Code(s): I50.31 - Acute diastolic (congestive) heart failure (9) Liver cirrhosis Current Visit: No Status: Chronic Qualifiers: Hepatic cirrhosis type: unspecified hepatic cirrhosis Ascites presence: with ascites Qualified Code(s): K74.60 - Unspecified cirrhosis of liver; R18.8 - Other ascites (10) ESRD (end stage renal disease) on dialysis Current Visit: No Status: Chronic Assessment and plan: consult to nephrology for routine dialysis (11) DVT prophylaxis Current Visit: No Status: Acute Assessment and plan: heparin gtt - Time Spent With Patient Total time spent is greater than 50% in coordination of care (as documented) at patient's floor/unit and/or counseling patient: <Dimple Enciso Vick - Last Filed: 11/10/18 03:33> Date of Encounter: 11/09/18 Internal Medicine - H&P: HPI History of present illness: Mr. Esquivel is a 78 year old male All Systems PM: A 10-system review of systems was performed and is negative for pertinent findings except as documented above in the HPI. - Constitutional Vitals: Temp Pulse Resp BP Pulse Ox 98.0 F 72 20 152/83 99 11/10/18 01:27 11/10/18 01:27 11/10/18 01:27 11/10/18 01:27 11/10/18 01:27 Internal Med - H&P Results - Labs CBC & Chem 7: 11/10/18 01:58 11/10/18 01:58 Labs: Short CBC 11/09/18 11/10/18 Range/Units 07:04 01:58 WBC 5.0 5.5 (4.3-11.1) K/mcL Hgb 10.7 L 10.4 L (12.9-16.9) g/dL Hct 35.0 L 34.0 L (37.5-50.1) % Plt Count 72 L 75 L (140-400) K/mcL Neutrophils # 2.4 2.5 (1.6-8.9) K/mcL BMP 11/09/18 11/10/18 07:04 01:58 Sodium 136 136 Potassium 4.7 4.8 Chloride 98 97 L Carbon Dioxide 31 H 31 H BUN 30 H 27 H Creatinine 7.04 H 6.58 H Glucose 130 H 132 H Calcium 9.1 8.6 Cardiac Enzymes 11/09/18 11/09/18 Range/Units 07:04 13:38 Troponin I 0.12 H* 0.09 H* (< 0.04) ng/mL Liver Function 11/09/18 Range/Units 07:04 Total Bilirubin 0.5 (0.3-1.0) mg/dL AST 15 (13-39) Units/L ALT 10 (7-52) Units/L Alkaline Phosphatase 109 H (34-104) Units/L Albumin 3.2 L (3.5-5.7) g/dL - ABG Interpretation ABG results: 11/09/18 14:34 ABG pH 7.33 ABG pCO2 57 H ABG pO2 113 H ABG HCO3 30 H ABG Total CO2 32 H ABG O2 Saturation 98 ABG Base Excess 3 - Impressions ITS Impressions Chest X-Ray 11/09/18 06:58 IMPRESSION: Findings suggest mild pulmonary vascular congestion with small effusions. D/ / Poncho Ray MD / Poncho Ray MD Interpreting Provider: Poncho Ray MD Echocardiogram 11/09/18 08:03 Impressions: LVEF 45%. Normal right ventricular structure and function. Mild-moderate tricuspid regurgitation. Moderate pulmonary hypertension.Estimated RVSP is 49 mmHg. Mild aortic stenosis. Technically sub-optimal due to poor echocardiographic windows. Recommend limited study with Definity Left Ventricular Wall Motion: Rest Echo Findings The mid inferior, basal inferior, apical anterior, mid anterior, basal anterior, apical septal, mid inferior septal, basal inferior septal, mid anterior lateral, basal anterior lateral, mid inferior lateral, basal anterior septal and basal inferior lateral lim were hypokinetic. The apex, apical inferior, apical lateral and mid anterior septal lim were not visualized. Findings: Study Quality * Technically sub-optimal due to poor echocardiographic windows. ECG Findings * Sinus rhythm with BBB. Left Ventricle * LVEF 45%. * Definity echo contrast was not used. * Atypical septal motion consistent with bundle branch block. Right Ventricle * Normal right ventricular structure and function. Left Atrium * Normal left atrial size. Right Atrium * Normal right atrial size. Aortic Valve * Aortic valve not well visualized. * Mild aortic stenosis. * Trace aortic regurgitation. Mitral Valve * Moderate mitral annular calcification * Trace mitral regurgitation. * No mitral stenosis. Tricuspid Valve * Mild-moderate tricuspid regurgitation. * Moderate pulmonary hypertension.Estimated RVSP is 49 mmHg. * * Estimated RA pressure is 10 mmHg. * No tricuspid stenosis. Pulmonic Valve * Pulmonic valve not well visualized. Aorta * Normally sized aortic root. Pericardium * There is a trivial pericardial effusion present. * There is no echocardiographic evidence of tamponade. IVC * The IVC is dilated. Pulmonary Artery * Pulmonary artery not well visualized. - Time Spent With Patient Total time spent is greater than 50% in coordination of care (as documented) at patient's floor/unit and/or counseling patient: - Attending Attestation I performed a history and physical examination of the patient and discussed his management with the resident. I reviewed the residents note and agree with the documented findings and plan of care.
[2018-11-09] MEDS ORDERED: Ipratropium/Albuterol Neb 3 ML IH PRN (09:08)
[2018-11-09] MEDS ORDERED: Nitroglycerin 0.4 MG TAB.SUBL SL PRN (09:08)
[2018-11-09] MEDS ORDERED: D5% in Water 1,000 ML IVC PRN (09:21)
[2018-11-09] MEDS ORDERED: *HR* Dextrose 50 % in Water (Syg) 50 ML SYRINGE IVP PRN (09:21)
[2018-11-09] MEDS ORDERED: Dextrose Gel 15 GM/37.5 ML TUBE PO PRN ×2 (09:21)
[2018-11-09] MEDS ORDERED: Naloxone 0.4 MG/ML INJ IVP PRN (09:26)
[2018-11-09] MEDS ORDERED: *HR* Heparin 5,000 UNIT/ML VIAL IVP PRN ×2 (09:31)
[2018-11-09] MEDS ORDERED: *HR* Heparin 5,000 UNIT/ML VIAL IVP ONE (09:31)
[2018-11-09] MEDS: *HR* LORazepam 1 MG TABLET PO SCH ×2 (12:23→21:23)
[2018-11-09] MEDS: traMADol 50 MG TABLET PO PRN ×2 (12:23→23:58)
[2018-11-09] MEDS: Insulin LISPRO 300 UNITS/3 ML VIAL SQ SCH ×3 (12:29→21:07)
[2018-11-09] MEDS: Calcium Acetate 667 MG CAPSULE PO SCH ×2 (12:29→17:56)
--- NOTE | 2018-11-09 12:36 | Cardiology Consult Note ---
<Andrea Bazzi - Last Filed: 11/09/18 13:46> Date of Encounter: 11/09/18 Time of Encounter: 11:30 Assessment and Plan (1) NSTEMI (non-ST elevated myocardial infarction) Current Visit: Yes Status: Acute Troponin elevation 0.12 and EKG changes concerning for ischemia.Initial EKG with ST elevation in lead III but no contiguous leads. Reveived with interventionalist, EKG does not meet STEMI criteria. Repeat EKG with resolution of ST elevation. ST depression noted in anteriolateral leads. H/o 3V CABG one year ago. C/o right sided chest pressure he describes as "congestion". States that he had similar symptoms in the past month and underwent thoracentesis with relief. CXR shows small bilateral pleural effusion. TTE shows EF 45%. EF 45-50% in July during admission for sepsis. Noted EF 55% prior to bypass surgery. Type I NSTEMI vs type II in setting of CHF. Continue to trend troponin. Serial EKG. We will consider LHC based on hospital course. Asa, statin, bb and NTG SL for chest pain. (2) CAD (coronary artery disease) Current Visit: Yes Status: Chronic H/o 3V CABG one year ago. Asa, statin, bb. Qualifiers: Coronary Disease-Associated Artery/Lesion type: bypass graft [place] vs. transplanted heart: [place] heart Associated angina: without angina Qualified Code(s): I25.810 - Atherosclerosis of coronary artery bypass graft(s) without angina pectoris (3) CHF (congestive heart failure) Current Visit: Yes Status: Acute Acute HFrEF. TTE done this am shows LVEF 45%. Normal right ventricular structure and function. Mild-moderate tricuspid regurgitation. Moderate pulmonary hypertension.Estimated RVSP is 49 mmHg. Mild aortic stenosis. Technically sub- optimal due to poor echocardiographic windows. Recommend limited study with Definity. BNP 3320. CXR shows pulmonary congestion and small bilateral pleural effusions. Fluid managment per nephrology, pt on dialysis. Qualifiers: Heart failure type: other Qualified Code(s): I50.9 - Heart failure, unspecified Discussion w patient/family: The assessment and plan as outlined above was discussed with the patient and/or family members who expressed understanding and agreement. All questions were answered. Thank you for involving us in the care of your patient. Please call with any questions. History of Present Illness History of present illness: Mr. Esquivel is a 78 year old male Past Med Surg Social Fam HX - Past Medical History Medical history: aortic aneurysm, arthritis, CHF, coronary artery disease, diabetes, dialysis, hyperlipidemia, hypertension, renal disease Additional medical history: BLADDER NECK CONTRACTURE, SQUAMOUS CELL CANCER. 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), triple bypass - Social History Smoking Status: Former smoker Smokeless Tobacco Status: No Alcohol use: none Drug use: none - Family History Father Adopted: No Family Member Ethnicity: Non- Living Status: Hx Family Cardiac Disorders: Yes (NM) Mother Adopted: No Family Member Ethnicity: Non- Living Status: Hx Family Cancer: Yes Brother Family Member Ethnicity: Non- Living Status: Still Living Sister Adopted: No Family Member Ethnicity: Non- Living Status: Still Living Hx Family Cardiac Disorders: Yes Hx Family Respiratory Disorders: No Hx Family Cancer: Yes Hx Family GI Disorders: No Hx Family Endocrine Disorder: Yes Hx Family Neuromuscular Disorders: No Hx Family Neurologic Disorders: No Hx Family HEENT Disorders: No Hx Family Autoimmune Disorders: No Medications and Allergies Clopidogrel [Plavix] 75 mg PO 199901/15/18 [History] Venlafaxine XR (24 HR) [Effexor Xr] 150 mg PO 199901/15/18 [History] Trazodone HCl 100 mg PO HS PRN 01/31/18 [History] Calcium Acetate [Phos-LO] 1,334 mg PO TIDWM 07/03/18 [History] Nitroglycerin [Nitrostat] 0.4 mg SL Q5M PRN 07/04/18 [History] Aspirin [Lo-Dose Aspirin EC] 81 mg PO 1600 08/23/18 [History] Atorvastatin Calcium [Lipitor] 20 mg PO 199908/23/18 [History] Acetaminophen [Tylenol 8 Hour] 650 mg PO Q6H PRN 10/17/18 [History] Guaifenesin [Mucinex] 600 mg PO BID PRN 10/17/18 [History] Ipratropium/Albuterol Neb [Duoneb] 3 ml IH Q6HR PRN 10/17/18 [History] Gabapentin [Neurontin] 100 mg PO TID 11/09/18 [History] LORazepam [Ativan] 1 mg PO BID 11/09/18 [History] Metoprolol Succinate 200 mg PO 1600 11/09/18 [History] Ondansetron ODT [Zofran ODT] 4 mg SL Q6HR PRN 11/09/18 [History] Tramadol HCl [Ultram] 50 mg PO BID PRN 11/09/18 [History] Allergy/AdvReac Type Severity Reaction Status Date / Time No Known Allergies Allergy Verified 11/09/18 07:04 All Systems Review: The remainder of the systems were reviewed and are negative Physical Examination Vital Signs, Last 4 Hours Temp Pulse Resp BP Pulse Ox 11/09/18 11:29 97.7 F 67 18 130/82 100 11/09/18 09:04 96 18 117/88 100 Results 11/09/18 07:04 11/09/18 07:04 Lab Results 11/09/18 11/09/18 11/09/18 07:04 07:04 07:04 WBC 5.0 Hgb 10.7 L Hct 35.0 L Plt Count 72 L INR Sodium 136 Potassium 4.7 Chloride 98 Carbon Dioxide 31 H BUN 30 H Creatinine 7.04 H Glucose 130 H Calcium 9.1 Total Bilirubin 0.5 AST 15 ALT 10 Alkaline Phosphatase 109 H Troponin I 0.12 H* B-Natriuretic Peptide 3320 H 11/09/18 07:04 WBC Hgb Hct Plt Count INR 1.3 Sodium Potassium Chloride Carbon Dioxide BUN Creatinine Glucose Calcium Total Bilirubin AST ALT Alkaline Phosphatase Troponin I B-Natriuretic Peptide Consult Discharge Plan - Plan Referrals: NONE,PCP [Primary Care Provider] - <Heather Reid - Last Filed: 11/09/18 20:49> Date of Encounter: 11/09/18 - Attending Attestation Patient was seen and evaluated independently by me. Findings, assessment and plan were discussed at length with patient, questions answered. Agree with nurse practitioner's/resident's documentation. Addition as follows, 78 yoCM ho CABGX3 05/2017, ESRD on HD, DM/HTN/HLD. Multiple admissions for NSTEMI and ADHF past months. P/w acute onset of dyspnea with minimal exertion 1 day. Serial ECG dynamic changes consistent with inferior injury and anteroseptal/anterolateral ischemia. Trop max 0.12. TTE revealed EF 45%, mild and mild PH. BP mild fluctuation w/o persistent tachycardia, no JVD, CTA, RR, 1+ B/L LE edema A: Recurrent admissions for ADHF and NSTEMI (type II vs I) several months with evidence of inferior myocardial injury and anteroseptal/lateral ischemia Progressive LVEF reduction since CABG, from 55% to 45% with worsening functional status NYHA III, despite HD compliance BP mild fluctuation CABG x3 ESRD on HD P: c/w heparin drip, ASA, plavix re-eval for [facility] am Heather Reid MD, PhD Assessment and Plan Discussion w patient/family: The assessment and plan as outlined above was discussed with the patient and/or family members who expressed understanding and agreement. All questions were answered. Thank you for involving us in the care of your patient. Please call with any questions. History of Present Illness History of present illness: Mr. Esquivel is a 78 year old male All Systems Review: The remainder of the systems were reviewed and are negative Results 11/09/18 07:04 11/09/18 07:04 Lab Results 11/09/18 11/09/18 11/09/18 07:04 07:04 07:04 WBC 5.0 Hgb 10.7 L Hct 35.0 L Plt Count 72 L INR Sodium 136 Potassium 4.7 Chloride 98 Carbon Dioxide 31 H BUN 30 H Creatinine 7.04 H Glucose 130 H Calcium 9.1 Total Bilirubin 0.5 AST 15 ALT 10 Alkaline Phosphatase 109 H Troponin I 0.12 H* B-Natriuretic Peptide 3320 H 11/09/18 11/09/18 07:04 13:38 WBC Hgb Hct Plt Count INR 1.3 Sodium Potassium Chloride Carbon Dioxide BUN Creatinine Glucose Calcium Total Bilirubin AST ALT Alkaline Phosphatase Troponin I 0.09 H* B-Natriuretic Peptide
--- NOTE | 2018-11-09 12:54 | Electrocardiograph Report ---
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
--- NOTE | 2018-11-09 12:55 | Electrocardiograph Report ---
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
[2018-11-09 14:38] LABS: ABG Base Excess 3 mEq/L (-2 to 3); ABG HCO3 30 mEq/L (21-27); ABG Oxygen Saturation 98 % (95-98); ABG PCO2 57 mmHg (35-45); ABG PH 7.33 pH Units (7.32-7.45); ABG PO2 113 mmHg (85-104); ABG TCO2 32 mEq/L (20-26)
[2018-11-09] MEDS: Gabapentin 100 MG CAPSULE PO SCH ×2 (15:20→21:23)
[2018-11-09] MEDS ORDERED: 0.9 % Sodium Chloride 250 ML IVC PRN (15:52)
[2018-11-09] MEDS ORDERED: *HR* Heparin 10,000 UNIT/10 ML VIAL IV PRN (15:52)
[2018-11-09] MEDS ORDERED: 0.9 % Sodium Chloride 1,000 ML PRIME SCH (16:00)
--- NOTE | 2018-11-09 16:48 | Electrocardiograph Report ---
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
[2018-11-09] MEDS: Ondansetron ODT 4 MG TAB.RAPDIS SL PRN (18:16)
[2018-11-09] MEDS ORDERED: *HR* LORazepam 1 MG TABLET PO SCH (21:00)
--- NOTE | 2018-11-09 23:57 | Nephrology Consult Note ---
Date of Encounter: 11/09/18 Time of Encounter: 12:00 Assessment and Plan (1) ESRD (end stage renal disease) on dialysis Current Visit: No Status: Acute HD with UF planned as tolerated History of Present Illness - Reason for Consult Consult date: 11/09/18 end stage renal disease - History of Present Illness 78 y o male with PMH of ESRD on hD Past Med Surg Social Fam HX - Past Medical History Medical history: aortic aneurysm, arthritis, CHF, coronary artery disease, diabetes, dialysis, hyperlipidemia, hypertension, renal disease Additional medical history: BLADDER NECK CONTRACTURE, SQUAMOUS CELL CANCER. 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), triple bypass - Social History Smoking Status: Former smoker Smokeless Tobacco Status: No Alcohol use: none Drug use: none - Family History Father Adopted: No Family Member Ethnicity: Non- Living Status: Hx Family Cardiac Disorders: Yes ([place]) Mother Adopted: No Family Member Ethnicity: Non- Living Status: Hx Family Cancer: Yes Brother Family Member Ethnicity: Non- Living Status: Still Living Sister Adopted: No Family Member Ethnicity: Non- Living Status: Still Living Hx Family Cardiac Disorders: Yes Hx Family Respiratory Disorders: No Hx Family Cancer: Yes Hx Family GI Disorders: No Hx Family Endocrine Disorder: Yes Hx Family Neuromuscular Disorders: No Hx Family Neurologic Disorders: No Hx Family HEENT Disorders: No Hx Family Autoimmune Disorders: No Medications and Allergies Clopidogrel [Plavix] 75 mg PO 199901/15/18 [History] Venlafaxine XR (24 HR) [Effexor Xr] 150 mg PO 199901/15/18 [History] Trazodone HCl 100 mg PO HS PRN 01/31/18 [History] Calcium Acetate [Phos-LO] 1,334 mg PO TIDWM 07/03/18 [History] Nitroglycerin [Nitrostat] 0.4 mg SL Q5M PRN 07/04/18 [History] Aspirin [Lo-Dose Aspirin EC] 81 mg PO 1600 08/23/18 [History] Atorvastatin Calcium [Lipitor] 20 mg PO 199908/23/18 [History] Acetaminophen [Tylenol 8 Hour] 650 mg PO Q6H PRN 10/17/18 [History] Guaifenesin [Mucinex] 600 mg PO BID PRN 10/17/18 [History] Ipratropium/Albuterol Neb [Duoneb] 3 ml IH Q6HR PRN 10/17/18 [History] Gabapentin [Neurontin] 100 mg PO TID 11/09/18 [History] LORazepam [Ativan] 1 mg PO BID 11/09/18 [History] Metoprolol Succinate 200 mg PO 1600 11/09/18 [History] Ondansetron ODT [Zofran ODT] 4 mg SL Q6HR PRN 11/09/18 [History] Tramadol HCl [Ultram] 50 mg PO BID PRN 11/09/18 [History] Allergy/AdvReac Type Severity Reaction Status Date / Time No Known Allergies Allergy Verified 11/09/18 07:04 Exam - Vital Signs Vital signs: Initial Vital Signs Temp Pulse Resp BP Pulse Ox 97.6 F 100 20 151/95 100 11/09/18 07:04 11/09/18 07:04 11/09/18 07:04 11/09/18 07:04 11/09/18 07:04 Vital Signs - Last 8 Hours Temp Pulse Resp BP Pulse Ox 11/09/18 21:00 90 11/09/18 20:35 97.5 F L 69 20 144/92 90 11/09/18 18:11 97.4 F L 22 146/76 11/09/18 17:55 141/79 11/09/18 17:45 135/80 11/09/18 17:30 151/77 11/09/18 17:15 142/77 11/09/18 17:00 128/73 11/09/18 16:45 131/66 11/09/18 16:30 148/91 11/09/18 16:15 97.5 F L 18 165/93 Intake and Output 11/09/18 11/09/18 11/09/18 07:59 15:59 23:59 Intake Total 58 / 735 677 / 735 Output Total 1505 / 1505 Balance 58 / -770 -828 / -770 Intake: IV Fluids 58 / 135 77 / 135 Heparin 25,000 UNIT/250 ML D5W 58 / 135 77 / 135 25,000 unit In 250 ml @ 12 UNIT /KG/HR 10.342 mls/hr IVC .Q24H [place] Rx#:[id number] Oral 0 / 0 Intake, Rinseback and Flushes 600 / 600 Output: Total Dialysis (HD) Output 1505 / 1505 Other: # Voids 0 Weight 86.183 kg 91.2 kg Blood Glucose* 79 73 Hemodialysis Net Fluid Removed 905 (mL) Patient Weight 11/09/18 23:59 Weight 91.2 kg Results - Lab Results 11/09/18 07:04 11/09/18 07:04 Most recent lab results 11/09/18 14:34 ABG pH 7.33 ABG pCO2 57 H ABG pO2 113 H ABG HCO3 30 H ABG O2 Saturation 98 Consult Discharge Plan - Plan Referrals: NONE,PCP [Primary Care Provider] -
[2018-11-10 02:18] LABS: Basophils % 0.9 %; Hemoglobin 10.4 g/dL (12.9-16.9); Immature Granulocytes % 0.2 % (0-4); Mean Corpuscular Hemoglobin 30.2 pg (28.0-33.3); Monocytes % 8.7 %; Red Blood Count 3.44 M/mcL (4.19-5.50); Red Cell Distribution Width 15.9 % (11.5-14.5)
[2018-11-10 02:20] LABS: Basophils # 0.1 K/mcL (0.0-0.2); Eosinophils # 1.3 K/mcL (0.0-0.6); Eosinophils % 23.4 %; Immature Platelets 6.3 % (1.1-6.1); Lymphocytes % 20.8 %; Mean Corpuscular HGB Conc 30.6 g/dL (31.6-35.5); Mean Corpuscular Volume 98.8 fL (83.0-100.0); Mean Platelet Volume 10.4 fL (9.4-12.4); Monocytes # 0.5 K/mcL (0.0-1.3); Neutrophils # 2.5 K/mcL (1.6-8.9); White Blood Count 5.5 K/mcL (4.3-11.1)
[2018-11-10 02:23] LABS: Lymphocytes # 1.1 K/mcL (0.6-4.6); Platelet Count 75 K/mcL (140-400)
[2018-11-10 02:25] LABS: Heparin anti-factor XA UFH 0.23 IU/mL (0.30-0.70); INR 1.3; Prothrombin Time 14.5 Seconds (9.4-12.1)
[2018-11-10 02:30] LABS: Calcium 8.6 mg/dL (8.6-10.3); Potassium 4.8 mEq/L (3.5-5.1)
--- NOTE | 2018-11-10 02:46 | Event Note ---
Date of Encounter: 11/09/18 Time of Encounter: 22:51 Notified by nurse of patient having bleeding from fistula site after receiving dialysis today. Later notified fistula site continuing to have bleeding and patient now having nosebleed. Ordered heparin drip to be stopped and stat labs ordered. Vitals all stable at this time. Continue on telemetry. Nurse to notify of any changes.
[2018-11-10 02:49] LABS: Hypochromasia Present (Not Present); Large Platelets Present (Not Present); Platelet Estimate Decreased (Normal)
[2018-11-10] MEDS ORDERED: Nitroglycerin 1,000 MCG/10 ML VIAL IV ONE (08:46)
[2018-11-10] MEDS ORDERED: *HR* Heparin 10,000 UNIT/10 ML VIAL ONE (08:46)
[2018-11-10] MEDS ORDERED: ISOVUE-370 200 ML INFUS..BTL ONE ×2 (08:46→09:51)
[2018-11-10] MEDS ORDERED: Heparin 1,000 UNITS/500 mL 500 ML ONE (08:46)
[2018-11-10] MEDS ORDERED: 0.9 % Sodium Chloride 1,000 ML ONE ×2 (08:46)
--- NOTE | 2018-11-10 08:54 | Internal Med Progress Note ---
Hospitalist Progress Note - Encounter Date of Encounter: 11/10/18 Time of Encounter: 08:54 - Subjective Interval History: No active chest pain. Plan to take patient to heart catheter lab today. Heparin drip was discontinued as patient is started to bleed from fistula last night. Cardiology team aware about it. Review the lab and vitals Denies fever chills nausea vomiting headache dizziness cough abdominal pain diarrhea - Exam Vitals: Temp Pulse Resp BP Pulse Ox 97.9 F 69 14 128/10 94 11/10/18 07:44 11/10/18 07:44 11/10/18 07:44 11/10/18 07:44 11/10/18 07:44 Exam: General appearance: No acute distress Head exam: Atraumatic Eye exam: EOMI, PERRLA ENT exam: Moist oral mucosa Neck nontender, supple Respiratory exam: Slight decreased breath sound at the base Cardiovascular exam: Regular rate and rhythm, no systolic murmur Abdominal exam: Soft, nontender, nondistended, positive bowel sounds Extremities exam: No calf tenderness, no pedal edema Present: Skin-no rash, warm, dry, intact Neurological exam: Alert, awake, oriented 3, CN II-XII intact, no focal deficits. No facial droop. Normal speech. - Assessment and Plan (1) CHF (congestive heart failure) Current Visit: Yes Status: Acute (2) NSTEMI (non-ST elevated myocardial infarction) Current Visit: Yes Status: Acute (3) CAD (coronary artery disease) Current Visit: Yes Status: Chronic (4) Chronic kidney disease Current Visit: No Status: Acute (5) DVT prophylaxis Current Visit: No Status: Acute (6) Diabetes Current Visit: No Status: Acute (7) ESRD (end stage renal disease) on dialysis Current Visit: No Status: Acute (8) Liver cirrhosis Current Visit: No Status: Acute (9) Pulmonary edema Current Visit: No Status: Acute (10) CHF (congestive heart failure) Current Visit: No Status: Chronic (11) HTN (hypertension) Current Visit: No Status: Chronic - Summary of Assessment and Plan Summary of Assessment and Plan: - Assessment and Plan NSTEMI (non-ST elevated myocardial infarction) Current Visit: No Status: Acute patient complaining of shortness of breath at detention, not relieved with breathing treatment. EKG shows ST elevations in leads III, AVF with diffuse T wave inversions and ST depressions in V3-V6. SHALOM: 6 CXR showed pulmonary vascular congestion 80mg IV lasix in ED. had hemodialysis for ultrafiltration. Patient is started to have bleeding from AV fistula while on heparin drip therefore it was is s topped. [employer] Supervisor's on board and plan for heart catheterization. Plavix on hold due to low platelet. Lasix is stent in 2007 Continue aspirin, high-dose a statin, home dose of beta claudia Pulmonary edema- Chest x-ray with vascular congestion. Patient had ultrafiltration on hemodialysis. Further management as per nephrology. CAD (coronary artery disease) Status post CABG 3 Diabetes history of type II DM. low dose sliding scale insulin ADA diet ACHS accuchecks HTN (hypertension)-home medicine. Close monitoring of blood pressure HLD (hyperlipidemia) Continue high doses statin CHF (congestive heart failure) last echo from 08/16 showed LVEF 45-50%, mild LVH, mild , no pulmonary hypertension Liver cirrhosis Stable. Continue home medicine ESRD (end stage renal disease) on dialysis consult to nephrology for routine dialysis DVT prophylaxis Subcutaneous heparin - Time Spent with Patient Total time spent is greater than 50% in coordination of care (as documented) at patient's floor/unit and/or counseling patient: Internal Medicine: Result - Labs CBC & Chem 7: 11/10/18 01:58 11/10/18 01:58 Labs: Short CBC 11/10/18 Range/Units 01:58 WBC 5.5 (4.3-11.1) K/mcL Hgb 10.4 L (12.9-16.9) g/dL Hct 34.0 L (37.5-50.1) % Plt Count 75 L (140-400) K/mcL Neutrophils # 2.5 (1.6-8.9) K/mcL BMP 11/10/18 01:58 Sodium 136 Potassium 4.8 Chloride 97 L Carbon Dioxide 31 H BUN 27 H Creatinine 6.58 H Glucose 132 H Calcium 8.6 Cardiac Enzymes 11/09/18 Range/Units 13:38 Troponin I 0.09 H* (< 0.04) ng/mL - ABG Interpretation ABG results: ABG ABG pH 7.33 pH Units (7.32-7.45) 11/09/18 14:34 ABG pCO2 57 mmHg (35-45) H 11/09/18 14:34 ABG pO2 113 mmHg (85-104) H 11/09/18 14:34 ABG O2 Saturation 98 % (95-98) 11/09/18 14:34 PT/INR, D-dimer PT 14.5 Seconds (9.4-12.1) H 11/10/18 01:58 - Impressions Impressions Echocardiogram 11/09/18 08:03 Impressions: LVEF 45%. Normal right ventricular structure and function. Mild-moderate tricuspid regurgitation. Moderate pulmonary hypertension.Estimated RVSP is 49 mmHg. Mild aortic stenosis. Technically sub-optimal due to poor echocardiographic windows. Recommend limited study with Definity Left Ventricular Wall Motion: Rest Echo Findings The mid inferior, basal inferior, apical anterior, mid anterior, basal anterior, apical septal, mid inferior septal, basal inferior septal, mid anterior lateral, basal anterior lateral, mid inferior lateral, basal anterior septal and basal inferior lateral lim were hypokinetic. The apex, apical inferior, apical lateral and mid anterior septal lim were not visualized. Findings: Study Quality * Technically sub-optimal due to poor echocardiographic windows. ECG Findings * Sinus rhythm with BBB. Left Ventricle * LVEF 45%. * Definity echo contrast was not used. * Atypical septal motion consistent with bundle branch block. Right Ventricle * Normal right ventricular structure and function. Left Atrium * Normal left atrial size. Right Atrium * Normal right atrial size. Aortic Valve * Aortic valve not well visualized. * Mild aortic stenosis. * Trace aortic regurgitation. Mitral Valve * Moderate mitral annular calcification * Trace mitral regurgitation. * No mitral stenosis. Tricuspid Valve * Mild-moderate tricuspid regurgitation. * Moderate pulmonary hypertension.Estimated RVSP is 49 mmHg. * * Estimated RA pressure is 10 mmHg. * No tricuspid stenosis. Pulmonic Valve * Pulmonic valve not well visualized. Aorta * Normally sized aortic root. Pericardium * There is a trivial pericardial effusion present. * There is no echocardiographic evidence of tamponade. IVC * The IVC is dilated. Pulmonary Artery * Pulmonary artery not well visualized. Consult Discharge Plan - Plan Referrals: NONE,PCP [Primary Care Provider] - (1) CHF (congestive heart failure) Qualifiers: Heart failure type: other Qualified Code(s): I50.9 - Heart failure, unspecified (3) CAD (coronary artery disease) Qualifiers: Coronary Disease-Associated Artery/Lesion type: bypass graft [place] vs. transplanted heart: [place] heart Associated angina: without angina Qualified Code(s): I25.810 - Atherosclerosis of coronary artery bypass graft(s) without angina pectoris (4) Chronic kidney disease Qualifiers: Chronic kidney disease stage: unspecified stage Qualified Code(s): N18.9 - Chronic kidney disease, unspecified (6) Diabetes Qualifiers: Diabetes mellitus type: type 2 Diabetes mellitus long term care pharmacist insulin use: without long term care pharmacist use Diabetes mellitus complication status: with unspecified complications (8) Liver cirrhosis Qualifiers: Hepatic cirrhosis type: unspecified hepatic cirrhosis Ascites presence: with ascites Qualified Code(s): K74.60 - Unspecified cirrhosis of liver; R18.8 - Other ascites (9) Pulmonary edema Qualifiers: Qualified Code(s): J81.0 - Acute pulmonary edema (10) CHF (congestive heart failure) Qualifiers: Heart failure type: diastolic Heart failure chronicity: acute Qualified Code(s): I50.31 - Acute diastolic (congestive) heart failure (11) HTN (hypertension) Qualifiers: Hypertension type: essential hypertension Qualified Code(s): I10 - Essential (primary) hypertension
--- NOTE | 2018-11-10 09:09 | Pre-Sedation Evaluation ---
Pre-sedation evaluation - Pre-sedation checklist Date of procedure: 11/10/18 Procedure: Left heart Cath Recent Vitals: Last Vital Signs Temp 97.9 F 11/10/18 07:44 Pulse 69 11/10/18 07:44 Resp 14 11/10/18 07:44 BP 128/110 11/10/18 07:44 Pulse Ox 94 11/10/18 07:44 H&P (including ROS) documented in medical record: Yes Previous reaction to sedatives/anesthetics: No Dietary Status: NPO after Midnight Airway Assessment: Patient can open mouth completely, TMJ function normal, Micrognathia (under-bite, receding chin) absent, Neck with adequate range of motion Dentition: No loose teeth or bridges Possible difficult airway: No ASA Classification *see protocol: CLASS II-Mild systemic disease Plan of Care: Pt appropriate candidate for procedure/moderate/conscious sedation, Risks/benefits of procedure/sedation discussed w/ patient/family Cardiac Registry (Cardio Only) - Functional Capacity Functional Capacity: < 4 METS - Clincal Frailty Scale Clinical Frailty Scale: Vulnerable
[2018-11-10] MEDS ORDERED: *HR* Midazolam HCl 2 MG/2 ML VIAL ONE (09:29)
[2018-11-10] MEDS ORDERED: *HR* FentaNYL (PF) 100 MCG/2 ML VIAL ONE (09:29)
--- NOTE | 2018-11-10 10:39 | Invasive Diagnostic Lab Proc ---
Name: Ike Esquivel Date of Study: 11/10/2018 Date: 1940 Ht: 70.1in Medical Record#: [id number] Age: 78 Wt: 203.27lb Gender: Male BSA: 2.1 Order #: [id number] BMI: 29.1 Physicians Procedure Physician: Marlin Deleon MD, FACC Referring MD: Referring MD: Staff Name Position Time In [facility] Be RN Nurse 09:22 AM Marlin Bruce RT (R) Scrub orientee 09:23 AM Michael Braun RN Clinical Informatics Director 09:23 AM Luc Nunez RT (R) Scrub 09:24 AM Candida Delvalle RT (R) Monitor 09:33 AM Gifty Fine RT 10:11 AM Indications Indication Non-Stemi Procedures Performed Procedure L HRT ART/GRFT ANGIO Pre-Procedure Checklist Informed consent is complete signed and on chart. H&P is on chart. ID band is on and ID verified with patient. Patient NPO for procedure The procedure was described for the patient and questions were answered. Blood Pressure: 130/93 ECG is on chart. Rhythm: NSR Plan of Care Patient will tolerate the procedure without complications. Adequate level of comfort will be maintained. Hemodynamics will remain stable Patient will recover from procedure without complications. Respiratory function will be maintained. Cardiac rhythm will remain stable. Patient temperature will be maintained. Patient and/or family have verbalized understanding of the procedure. Patient Education Chief Complaint/Reason for Test: Cardiac Cath Developmental Category: Geriatric (65+ years) Developmentally Appropriate for Age: Yes Learning Barriers: None Education Needs: Procedure Education Method: Verbal Information Taught: Cardiac Cath Educational Evaluation: Able to repeat information Intravenous Access Time IV Size Location DC'd Fluid/Drip Rate Units RN 20g 1 /" Patent On Arrival Rt Antecubital 0.9NaCl 50 ml/hr Michael Braun RN Allergies No Known Allergies Vital Signs Time BP (mmHg) HR (bpm) O2 Sat. RR (bpm) LOC 09:26 AM / % 5 = Fully awake and oriented or at pre-proc level 09:29 AM 143 / 83 67 % 15 09:34 AM 147 / 85 67 % 15 09:39 AM 120 / 73 65 83 % 13 09:44 AM 108 / 58 63 87 % 11 09:49 AM 97 / 59 64 88 % 11 09:54 AM 95 / 56 62 89 % 11 09:59 AM 91 / 58 65 95 % 12 10:04 AM 90 / 58 64 91 % 13 10:09 AM 97 / 54 62 92 % 13 Procedural Medications Time Medication Dose Units Method Given By 09:27 AM Oxygen 2 L/min nasal cannula Michael Braun RN 09:32 AM Versed 1 mg Intravenous Michael Braun RN 09:32 AM Fentanyl 25 mcg Intravenous Michael Braun RN 09:37 AM Versed 1 mg Intravenous Michael Braun RN 09:37 AM Fentanyl 25 mg Intravenous Michael Braun RN 09:38 AM Oxygen 5 L/min nasal cannula Michael Braun RN 09:39 AM Lidocaine 2% 20 ml Subcutaneous Marlin Deleon MD, [facility] ASA Classification: CLASS II- Mild systemic disease (i.e. well-controlled diabetes, hypertension, asthma, cigarette smoking) Gini Score Preprocedure Postprocedure Activity 2- Moves 4 extremities sustained head lift Activity 2- Moves 4 extremities sustained head lift Circulation 2- SBP +/= 20 points of pre-anesthetic level Circulation 2- SBP +/= 20 points of pre-anesthetic level Consciousness 2- Awake and alert oriented x 3 Consciousness 2- Awake and alert oriented x 3 O2 Saturation 2- Able to maintain O2 satruation of 92% on room air O2 Saturation 2- Able to maintain O2 satruation of 92% on room air Respiratory 2- Able to deep breathe and cough well Respiratory 2- Able to deep breathe and cough well Total Score 10 Total Score 10 Contrast Agent: Isovue Fluoro Dose: 74 mGy Procedure Log Time Note Enter By 09:22 AM [facility] Be Jane RN Position: Nurse Time in: : [place] 09:23 AM Marlin Bruce RT (R) Position: Scrub orientee Time in: :23 [facility] 09:24 AM Michael Braun RN Position: Clinical Informatics Director Time in: :23 [facility] 09:24 AM Patient charges- Angio tray pack, Navilyst 3mm J, Pulse Oximetry and ACIST tubing and transducer 09:24 AM IV Supplies used: J loop Angio Cath. 09:24 AM Luc Nunez RT (R) Position: Scrub Time in: 09:24 [facility] 09:25 AM Physician arrived : [facility] : AM Meet and tyree completed [facility] : AM Sign in performed according to hospital policy. Informed consent was obtained. [facility] 09:25 AM Procedure start : [facility] : AM Hair removed from procedure site in procedure lab using clippers. Bilateral groin prepped with Chloraprep by Marlin Bruce RT (R), then patient was draped. Skin intact. [facility] : AM Time: : Patient comfortable and pain free: Yes [facility] : AM Time: LOC: 5 = Fully awake and oriented or at pre-proc [facility] Time: : Oxygen on at 2 L/min per nasal cannula by Michael Braun RN [facility]: AM CathStat 09: AM Vitals capture started with the following parameters, Patient=Adult, Interval=5 min, Initial Snpjpveh=664 mmHg, Deflation Rate=5 mmHg, Cuff placed on Left Arm 09:29 AM HR=67 bpm, LCOR=146/83 mmhg, Resp=15 B/min 09:31 AM Pressure channel 1 zeroed. 09:32 AM Time: 09:32 Versed 1 mg Intravenous Given by Michael Braun RN [facility] 09:32 AM Time: 09:32 Fentanyl 25 mcg Intravenous Given by Michael Braun RN [facility] 09:33 AM Candida Delvalle RT (R) Position: Monitor Time in: : 09:34 AM HR=67 bpm, LSZR=930/85 mmhg, Resp=15 B/min 09:37 AM Time: 09:37 Versed 1 mg Intravenous Given by Michael Braun RN [facility] 09:37 AM Time: 09:37 Fentanyl 25 mg Intravenous Given by Michael Braun RN [facility] 09:38 AM Time: 09:38 Oxygen on at 5 L/min per nasal cannula by Michael Braun RN [facility] 09:39 AM Time out was performed according to hospital policy. Conscious sedation and anesthesia was achieved (see medication log with in this report above) tsites 09:39 AM HR=65 bpm, IFMW=655/73 mmhg, SpO2=83 %, Resp=13 B/min 09:40 AM Time: 09:39 20 ml Lidocaine 2% to right groin Subcutaneous Given by Marlin Deleon MD, [facility] tsites 09:41 AM Access obtained by percutaneous puncture. 5Fr 10cm Terumo [place] sheath placed in right Femoral artery. [id number] tsites 09:42 AM 5Fr FL 4 catheter inserted over the wire [facility] tsites 09:42 AM 0.035 145cm Navilyst 3mmJ wire [id number] tsites 09:43 AM LCA angiography performed in multiple views. tsites 09:43 AM Recorded Pressure: Ao, HR=65, Condition=Condition 1 (Aorta) Ao 109/64/84 09:44 AM HR=63 bpm, XXSK=269/58 mmhg, SpO2=87 %, Resp=11 B/min 09:44 AM Catheter removed tsites 09:45 AM 5Fr FR 4 catheter inserted over the wire [facility] tsites 09:45 AM RCA angiography performed in multiple views. tsites 09:49 AM HR=64 bpm, NIBP=97/59 mmhg, SpO2=88 %, Resp=11 B/min 09:49 AM Catheter removed tsites 09:51 AM 5Fr IM catheter inserted over the wire [id number] tsites 09:51 AM wire removed tsites 09:52 AM 0.035 180cm Glidewire wire [id number] used to position catheter tsites 09:53 AM wire removed tsites 09:53 AM Left DEEPTHI to the LAD angio performed in multiple views. tsites 09:54 AM HR=62 bpm, NIBP=95/56 mmhg, SpO2=89 %, Resp=11 B/min 09:55 AM Catheter removed tsites 09:56 AM 5Fr MPA catheter inserted over the wire [id number] tsites 09:56 AM wire removed tsites 09:57 AM Recorded Pressure: Ao, HR=65, Condition=Condition 1 (Aorta) Ao 87/55/70 09:58 AM Catheter removed tsites 09:58 AM 5Fr Pigtail catheter inserted over the wire [facility] tsites 09:58 AM wire removed tsites 09:58 AM Catheter crossed the aortic valve and was selectively placed in the left ventricle. Pressures recorded on pullback for left heart catheterization. tsites 09:59 AM HR=65 bpm, NIBP=91/58 mmhg, SpO2=95 %, Resp=12 B/min 09:59 AM Pressure channel 1 zeroed. 10:00 AM Recorded Pressure: LV, HR=64, Condition=Condition 1 (Left Ventricle) LV 122/4/19 10:00 AM Bolus angiogram of left Ventricle complete: 8 ml/sec for a total of 24 mls tsites 10:00 AM Recorded Pressure: LV, Ao, HR=62, Condition=Condition 1 (Left Ventricle) LV 105/21/23, (Aorta) Ao 76/35/59 10:01 AM Bolus angiogram of Aortic root complete: 15 ml/sec for a total of 30 mls tsites 10:03 AM Catheter removed tsites 10:03 AM Bolus angiogram of right Femoral complete: 2 ml/sec for a total of 4 mls tsites 10:04 AM HR=64 bpm, NIBP=90/58 mmhg, SpO2=91.0 %, Resp=13 B/min 10:06 AM Coronary Dominance: right tsites 10:08 AM Procedure completed at 10:08 11/10/2018 tsites 10:09 AM HR=62 bpm, NIBP=97/54 mmhg, SpO2=92 %, Resp=13 B/min 10:11 AM Sign out completed: Radiation Dose 479 mGy, 74 Gy/cm2 Fluoro Time: 9.8 Isovue 370 - 200ml contrast ml given by Marlin Deleon MD, [facility]. Complications: None. The patient was discharged out of the [place] in stable condition. Sedation minutes 38. Cardiac Rehab Consult needed: No. Confirmed administered medications: Yes tsites 10:11 AM Gifty Fine RT Position: Time in: :11 tsites 10:13 AM no family at this time tsites 10:14 AM Isovue 370 - 200ml,2 Bottle(s) used. tsites 10:14 AM Arterial sheath pulled, Mynx closure device used and was Successful S/N. tsites 10:14 AM Estimated Blood Loss: minimal tsites 10:14 AM Post ECG NSR tsites 10:15 AM Post Blood Pressure 97/54 tsites 10:15 AM 10:15 Post Pulses Bilateral DP & PT Doppler tsites 10:15 AM Information taught Cardiac Cath and Mynx tsites 10:15 AM Education needs Procedure, Plan of Care, and Responsibilities of Patient in Care tsites 10:15 AM Learning barriers :None tsites 10:15 AM Education Methods Verbal tsites 10:15 AM Education evaluation Able to repeat information tsites 10:15 AM Site status No bleeding/hematoma - Rt Groin as reported by Luc Nunez RT (R) at 10:15 tsites 10:15 AM Opsite applied tsites 10:19 AM Report given to aristides RN Pt taken to 2NE Room #34. 10:19 tsites 10:19 AM Delay to floor No tsites 10:19 AM Patient out of room: 10:19 tsites 10:20 AM Lesion found in Proximal RCA. Pre Stenosis: 30 Pre SHALOM Flow: tsites 10:20 AM Lesion found in Mid RCA. Pre Stenosis: 60 Pre SHALOM Flow: tsites 10:21 AM Lesion found in Proximal LAD. Pre Stenosis: 40 Pre SHALOM Flow: tsites 10:21 AM Lesion found in Mid LAD. Pre Stenosis: 99 Pre SHALOM Flow: tsites 10:21 AM Lesion found in Proximal Circumflex. Pre Stenosis: 30 Pre SHALOM Flow: tsites 10:22 AM Lesion found in 1st Marginal. Pre Stenosis: 100 Pre SHALOM Flow: tsites 10:22 AM Lesion found in Right PDA. Pre Stenosis: 100 Pre SHALOM Flow: tsites 10:22 AM Proximal Left Anterior Descending Coronary Artery with 40% stenosis. If graft is supplying this territory, 0 % stenosis. tsites 10:22 AM Mid/Distal Left Anterior Descending Coronary Artery and diagonal branches with 99% stenosis. If graft is supplying this area, 0 % stenosis tsites 10:22 AM Circumflex, Obtuse Marginal, Left Posterior Descending, and Left Posterolateral Coronary Arteries with 100 % stenosis. If graft is supplying this area, 0 % stenosis tsites 10:23 AM Right Coronary, Right Posterior Descending Arteries with Right Posterolateral and Acute Marginal branches with 100 % stenosis. If graft is supplying this area, 0 % stenosis tsites 10:26 AM Lesion found in Distal LMCA. Pre Stenosis: 30 Pre SHALOM Flow: tsites Complications Complication None Hemodynamics Pressures Site Systolic/A Wave Diastolic/V Wave Mean AO 109 64 84 AO 87 55 70 LV 122 4 19 LV 105 21 23 AO 76 35 59 Post Procedure Information Blood Pressure: 97/54 mmHg Rhythm: NSR Post procedural instructions were given Closure Device Time Device Success/Fail 11/10/2018 10:23:00 AM MynxGrip Successful Site Checks Time Location Status Staff Sheath In? Note 10:15 AM Rt Groin No bleeding/hematoma Luc Nunez RT (R) Pulses Time Site Pre-Procedure Post-Procedure Note Bilateral DP 2+ Bilateral radial 2+ 10:15:00 AM Bilateral DP & PT Doppler Updated by Candida Delvalle, RT (R) on 11/10/2018 10:29:21 AM Candida Delvalle RT electronically signed on 11/10/2018 10:30:20 AM with status of Final
--- NOTE | 2018-11-10 12:44 | Event Note ---
Date of Encounter: 11/10/18 Time of Encounter: 12:36 - Cardiology Event Note [facility] completed today. Patient found to have 1/3 patent bypass grafts. CHEN-LAD was patent. EF 50%. Medical management recommended. Atorvastatin increased to 80 mg daily. Imdur 30 mg daily started. Pt with mild CHF on admit. Fluid management per nephrology. Low sodium diet recommended. Cardiology will sign off. Out pt f/u will be coordinated with [facility].
[2018-11-10] MEDS ORDERED: Perflutren Lipid Microsphere 1.3 ML in 0.9 % Sodium Chloride 8.7 ML IVP ONE (13:57)
[2018-11-10] MEDS: Insulin LISPRO 300 UNITS/3 ML VIAL SQ SCH ×4 (14:57→21:17)
[2018-11-10] MEDS: Calcium Acetate 667 MG CAPSULE PO SCH ×3 (14:59→17:31)
[2018-11-10] MEDS: *HR* LORazepam 1 MG TABLET PO SCH ×2 (15:00→21:17)
[2018-11-10] MEDS: Gabapentin 100 MG CAPSULE PO SCH ×3 (15:05→21:17)
[2018-11-10] MEDS: Venlafaxine XR (24 HR) 150 MG CAP.ER.24H PO SCH (15:05)
[2018-11-10] MEDS: Isosorbide MONOnitrate (24 HR) 30 MG TAB.ER.24H PO SCH (15:05)
[2018-11-10] MEDS: Metoprolol XL (24 HR) Succ 50 MG TAB.ER.24H PO SCH (15:06)
[2018-11-10] MEDS: Aspirin Enteric Coated 81 MG Tablet PO SCH (15:06)
[2018-11-10] MEDS: traZODone 50 MG TABLET PO PRN (21:17)
--- NOTE | 2018-11-10 23:28 | Nephrology Progress Note ---
Date of Encounter: 11/10/18 Time of Encounter: 13:00 - Assessment and Plan (1) ESRD (end stage renal disease) on dialysis Current Visit: No Status: Acute s/p HD yesterday which pt terminated early. No HD today but will plan for tomorrow lytes stable continue renal diet once awake (2) NSTEMI (non-ST elevated myocardial infarction) Current Visit: Yes Status: Acute per [facility] today, per cardiology (3) Anemia Current Visit: No Status: Chronic hgb stable at 10.4, will monitor Qualifiers: Anemia type: due to chronic kidney disease Chronic kidney disease stage: u nspecified stage Qualified Code(s): N18.9 - Chronic kidney disease, unspe cified; D63.1 - Anemia in chronic kidney disease Subjective Interval history: Pt seen and examined appearing very lethargic with sister at bedside s/p [facility] t daniela Objective - Vital Signs Vital signs: Vital Signs Temp Pulse Resp BP Pulse Ox 11/10/18 21:46 98 11/10/18 20:49 97.5 F L 67 15 146/87 100 11/10/18 15:00 98.1 F 67 14 146/76 100 11/10/18 14:49 67 127/78 100 11/10/18 13:30 66 142/77 99 11/10/18 12:30 65 145/76 100 11/10/18 12:00 65 139/81 100 11/10/18 11:55 97.3 F L 63 12 139/71 99 11/10/18 11:15 63 122/69 100 11/10/18 11:00 63 119/63 99 11/10/18 10:45 62 110/65 99 11/10/18 10:28 64 107/61 99 11/10/18 07:44 97.9 F 69 14 128/110 94 11/10/18 05:02 98.0 F 73 18 130/93 94 11/10/18 01:27 98.0 F 72 20 152/83 99 Intake and Output 11/10/18 11/10/18 11/10/18 07:59 15:59 23:59 Intake Total 31.6 / 31.6 0 / 31.6 0 / 31.6 Output Total 0 / 0 0 / 0 Balance 31.6 / 31.6 0 / 31.6 0 / 31.6 Intake: IV Fluids 31.6 / 31.6 Heparin 25,000 UNIT/250 ML D5W 31.6 / 31.6 25,000 unit In 250 ml @ 12 UNIT /KG/HR 10.342 mls/hr IVC .Q24H [place] Rx#:[id number] Oral 0 / 0 0 / 0 0 / 0 Output: Urine 0 / 0 0 / 0 Other: # Voids 0 Weight 92.2 kg Blood Glucose* 100 84 109 Patient Weight 11/10/18 23:59 Weight 92.2 kg - General Appearance General appearance: Present: chronically ill, fatigue EENT: Present: ATNC, mucous membranes moist Neck: Present: no JVD, supple Respiratory: Present: clear Cardiology: Present: no edema, normal S1, normal S2 Dialysis Vascular Access: Arteriovenous Fistula thrill: Yes bruit: Yes Gastrointestinal: Present: no tenderness, no guarding Integumentary: Present: warm and dry Neurologic: Present: disoriented Musculoskeletal: Present: no deformities Psychiatric: Present: mood/affect appropriate - Lab 11/10/18 01:58 11/10/18 01:58 Consult Discharge Plan - Plan Referrals: NONE,PCP [Primary Care Provider] -
[2018-11-11 07:59] LABS: Hematocrit 30.9 % (37.5-50.1); Hemoglobin 9.2 g/dL (12.9-16.9); Mean Corpuscular HGB Conc 29.8 g/dL (31.6-35.5); Mean Corpuscular Volume 100.7 fL (83.0-100.0); Red Blood Count 3.07 M/mcL (4.19-5.50); Red Cell Distribution Width 16.2 % (11.5-14.5)
[2018-11-11 08:01] LABS: Immature Platelets 5.3 % (1.1-6.1); Mean Platelet Volume 10.6 fL (9.4-12.4); White Blood Count 5.4 K/mcL (4.3-11.1)
[2018-11-11 08:08] LABS: Calcium 8.4 mg/dL (8.6-10.3); Potassium 5.4 mEq/L (3.5-5.1)
[2018-11-11] MEDS: Calcium Acetate 667 MG CAPSULE PO SCH ×3 (08:38→17:26)
[2018-11-11] MEDS: Gabapentin 100 MG CAPSULE PO SCH ×3 (08:38→21:46)
[2018-11-11] MEDS: Venlafaxine XR (24 HR) 150 MG CAP.ER.24H PO SCH (08:38)
[2018-11-11] MEDS: traMADol 50 MG TABLET PO PRN ×2 (08:38→21:46)
[2018-11-11] MEDS: *HR* LORazepam 1 MG TABLET PO SCH ×2 (08:38→21:46)
[2018-11-11] MEDS: Aspirin Enteric Coated 81 MG Tablet PO SCH (08:38)
[2018-11-11] MEDS: Insulin LISPRO 300 UNITS/3 ML VIAL SQ SCH ×4 (08:40→21:47)
--- NOTE | 2018-11-11 10:25 | Internal Med Progress Note ---
Hospitalist Progress Note - Encounter Date of Encounter: 11/11/18 Time of Encounter: 10:14 - Subjective Interval History: Patient is still complaining of shortness of breath or slight better. 4 L Oxygen by nasal cannula. Review the lab with worsening potassium creatinine. Review of the catheter tested report with patient Patient denies fever chills nausea vomiting headache dizziness chest pain abdominal pain diarrhea - Exam Vitals: Temp Pulse Resp BP Pulse Ox 97.5 F L 63 16 120/64 99 11/11/18 07:31 11/11/18 07:31 11/11/18 05:46 11/11/18 07:31 11/11/18 07:31 Exam: General appearance: No acute distress Head exam: Atraumatic Eye exam: EOMI, PERRLA ENT exam: Moist oral mucosa Neck nontender, supple Respiratory exam: decreased breath with few crepts Cardiovascular exam: Regular rate and rhythm, no systolic murmur Abdominal exam: Soft, nontender, nondistended, positive bowel sounds Extremities exam: No calf tenderness, no pedal edema Present: Skin-no rash, warm, dry, intact Neurological exam: Alert, awake, oriented 3, CN II-XII intact, no focal deficits. No facial droop. - Assessment and Plan (1) CHF (congestive heart failure) Current Visit: Yes Status: Acute (2) NSTEMI (non-ST elevated myocardial infarction) Current Visit: Yes Status: Acute (3) CAD (coronary artery disease) Current Visit: Yes Status: Chronic (4) Chronic kidney disease Current Visit: No Status: Acute (5) DVT prophylaxis Current Visit: No Status: Acute (6) Diabetes Current Visit: No Status: Acute (7) ESRD (end stage renal disease) on dialysis Current Visit: No Status: Acute (8) Liver cirrhosis Current Visit: No Status: Acute (9) Pulmonary edema Current Visit: No Status: Acute (10) CHF (congestive heart failure) Current Visit: No Status: Chronic (11) HTN (hypertension) Current Visit: No Status: Chronic - Summary of Assessment and Plan Summary of Assessment and Plan: - Assessment and Plan NSTEMI (non-ST elevated myocardial infarction) Current Visit: No Status: Acute patient complaining of shortness of breath at shelter, not relieved with breathing treatment. EKG shows ST elevations in leads III, AVF with diffuse T wave inversions and ST depressions in V3-V6. SHALOM: 6 CXR showed pulmonary vascular congestion 80mg IV lasix in ED. had hemodialysis for ultrafiltration. Patient is started to have bleeding from AV fistula while on heparin drip therefore it was is stopped. Graduate Internship's on board . heart catheterization-Patient found to have 1/3 patent bypass grafts. CHEN-LAD was patent. EF 50%. Medical management recommended. Atorvastatin increased to 80 mg daily. Imdur 30 mg daily started.Of note, plavix was discontinued last year for thrombocytopenia. Last stent in 2007. Ok to d/c if needed from bleeding standpoint. Continue aspirin, high-dose a statin, home dose of beta claudia. Will hold Plavix on discharge with concern of thrombocytopenia and risk of bleeding. Pulmonary edema- Chest x-ray with vascular congestion. Plan for hemodialysis today. Further management as per nephrology. Patient takes 2 L oxygen at home -due to unknown etiology as per patient. At present 1 L oxygen requirement. Will repeat chest x-ray tomorrow CAD (coronary artery disease) Status post CABG 3 Diabetes history of type II DM. low dose sliding scale insulin ADA diet ACHS accuchecks HTN (hypertension)-home medicine. Close monitoring of blood pressure HLD (hyperlipidemia) Continue high doses statin CHF (congestive heart failure) last echo from 08/16 showed LVEF 45-50%, mild LVH, mild , no pulmonary hypertension Liver cirrhosis Stable. Continue home medicine ESRD (end stage renal disease) on dialysis consult to nephrology for routine dialysis DVT prophylaxis Subcutaneous heparin Consulted PT OT and socially responsible investment adviser for discharge plan. - Time Spent with Patient Total time spent is greater than 50% in coordination of care (as documented) at patient's floor/unit and/or counseling patient: 25 - 35 minutes Plan of Care Discussed with: patient Internal Medicine: Result - Labs CBC & Chem 7: 11/11/18 07:12 11/11/18 07:12 Labs: Short CBC 11/11/18 Range/Units 07:12 WBC 5.4 (4.3-11.1) K/mcL Hgb 9.2 L (12.9-16.9) g/dL Hct 30.9 L (37.5-50.1) % Plt Count 70 L (140-400) K/mcL BMP 11/11/18 07:12 Sodium 136 Potassium 5.4 H Chloride 97 L Carbon Dioxide 29 BUN 37 H Creatinine 8.18 H Glucose 89 Calcium 8.4 L - ABG Interpretation ABG results: ABG ABG pH 7.33 pH Units (7.32-7.45) 11/09/18 14:34 ABG pCO2 57 mmHg (35-45) H 11/09/18 14:34 ABG pO2 113 mmHg (85-104) H 11/09/18 14:34 ABG O2 Saturation 98 % (95-98) 11/09/18 14:34 PT/INR, D-dimer PT 14.5 Seconds (9.4-12.1) H 11/10/18 01:58 - Impressions Impressions Echocardiogram Limited Views 11/10/18 08:52 Impressions: Technically adequate exam. LVEF 50-55%. Definity echo contrast was used. There is no LV thrombus. Left Ventricular Wall Motion: Rest Echo Findings The apical lateral wall was hypokinetic. All other wall segments showed normal motion. Findings: Study Quality * Technically adequate exam. ECG Findings * Normal sinus rhythm. Left Ventricle * LVEF 50-55%. * Definity echo contrast was used. * There is no LV thrombus. Consult Discharge Plan - Plan Referrals: NONE,PCP [Primary Care Provider] - (1) CHF (congestive heart failure) Qualifiers: Heart failure type: other Qualified Code(s): I50.9 - Heart failure, unspecified (3) CAD (coronary artery disease) Qualifiers: Coronary Disease-Associated Artery/Lesion type: bypass graft [place] vs. transplanted heart: [place] heart Associated angina: without angina Qualified Code(s): I25.810 - Atherosclerosis of coronary artery bypass graft(s) without angina pectoris (4) Chronic kidney disease Qualifiers: Chronic kidney disease stage: unspecified stage Qualified Code(s): N18.9 - Chronic kidney disease, unspecified (6) Diabetes Qualifiers: Diabetes mellitus type: type 2 Diabetes mellitus custodial insulin use: without custodial use Diabetes mellitus complication status: with unspecified complications (8) Liver cirrhosis Qualifiers: Hepatic cirrhosis type: unspecified hepatic cirrhosis Ascites presence: with ascites Qualified Code(s): K74.60 - Unspecified cirrhosis of liver; R18.8 - Other ascites (9) Pulmonary edema Qualifiers: Qualified Code(s): J81.0 - Acute pulmonary edema (10) CHF (congestive heart failure) Qualifiers: Heart failure type: diastolic Heart failure chronicity: acute Qualified Code(s): I50.31 - Acute diastolic (congestive) heart failure (11) HTN (hypertension) Qualifiers: Hypertension type: essential hypertension Qualified Code(s): I10 - Essential (primary) hypertension
[2018-11-11] MEDS ORDERED: 0.9 % Sodium Chloride 250 ML IVC PRN (10:50)
--- NOTE | 2018-11-11 13:17 | Nephrology Progress Note ---
Date of Encounter: 11/11/18 Time of Encounter: 13:17 - Assessment and Plan (1) Anemia Current Visit: No Status: Chronic Qualifiers: Anemia type: due to chronic kidney disease Chronic kidney disease stage: unspecified stage Qualified Code(s): N18.9 - Chronic kidney disease, unspecified; D63.1 - Anemia in chronic kidney disease (2) ESRD (end stage renal disease) on dialysis Current Visit: No Status: Acute HD MWF. Renal vitamins. Renal dose medications. Renal diet. Additional dialysis and ultrafiltration as needed. Patient was seen on dialysis. (3) NSTEMI (non-ST elevated myocardial infarction) Current Visit: Yes Status: Acute Subjective Principal diagnosis: esrd Interval history: Patient was seen while on dialysis. He has no new complaint. Review of systems stable. Objective - Vital Signs Vital signs: Vital Signs Temp Pulse Resp BP Pulse Ox 11/11/18 11:25 97.4 F L 18 155/84 11/11/18 07:31 97.5 F L 63 120/64 99 11/11/18 05:46 97.8 F 66 16 111/78 96 11/11/18 00:00 98.0 F 68 18 121/73 97 11/10/18 21:46 98 11/10/18 20:49 97.5 F L 67 15 146/87 100 11/10/18 15:00 98.1 F 67 14 146/76 100 11/10/18 14:49 67 127/78 100 11/10/18 13:30 66 142/77 99 Intake and Output 11/10/18 11/11/18 11/11/18 23:59 07:59 15:59 Intake Total 0 / 281.6 250 / 750 500 / 750 Output Total 0 / 0 0 / 0 Balance 0 / 281.6 250 / 750 500 / 750 Intake: Oral 0 / 250 250 / 250 0 / 250 Intake, Rinseback and Flushes 500 / 500 Output: Urine 0 / 0 0 / 0 Other: Blood Glucose* 109 97 125 Hemodialysis Net Fluid Removed 0 (mL) - General Appearance General appearance: Present: well-developed, well-nourished EENT: Present: ATNC Neck: Present: supple Cardiology: Present: regular rate Psychiatric: Present: mood/affect appropriate - Lab 11/11/18 07:12 11/11/18 07:12 Most recent lab results 11/11/18 07:12 Calcium 8.4 L Consult Discharge Plan - Plan Referrals: NONE,PCP [Primary Care Provider] -
[2018-11-11] MEDS: Isosorbide MONOnitrate (24 HR) 30 MG TAB.ER.24H PO SCH (17:25)
[2018-11-11] MEDS: Metoprolol XL (24 HR) Succ 50 MG TAB.ER.24H PO SCH (17:25)
[2018-11-11] MEDS: traZODone 50 MG TABLET PO PRN (21:46)
[2018-11-12 02:33] LABS: Basophils % 0.6 %
[2018-11-12 02:35] LABS: Eosinophils # 0.9 K/mcL (0.0-0.6); Eosinophils % 17.1 %; Hematocrit 30.3 % (37.5-50.1); Immature Granulocytes % 0.2 % (0-4); Immature Platelets 5.4 % (1.1-6.1); Lymphocytes # 1.3 K/mcL (0.6-4.6); Lymphocytes % 26.3 %; Mean Corpuscular HGB Conc 29.7 g/dL (31.6-35.5); Mean Corpuscular Hemoglobin 29.9 pg (28.0-33.3); Mean Corpuscular Volume 100.7 fL (83.0-100.0); Mean Platelet Volume 10.6 fL (9.4-12.4); Monocytes # 0.6 K/mcL (0.0-1.3); Monocytes % 10.8 %; Neutrophils # 2.3 K/mcL (1.6-8.9); Red Blood Count 3.01 M/mcL (4.19-5.50); Red Cell Distribution Width 15.9 % (11.5-14.5); White Blood Count 5.1 K/mcL (4.3-11.1)
[2018-11-12 02:47] LABS: Platelet Count 64 K/mcL (140-400)
[2018-11-12 02:51] LABS: Calcium 8.1 mg/dL (8.6-10.3); Potassium 4.6 mEq/L (3.5-5.1)
[2018-11-12] MEDS: Insulin LISPRO 300 UNITS/3 ML VIAL SQ SCH ×4 (08:07→23:04)
[2018-11-12] MEDS: *HR* LORazepam 1 MG TABLET PO SCH ×2 (09:26→20:32)
[2018-11-12] MEDS: Calcium Acetate 667 MG CAPSULE PO SCH ×3 (09:26→17:22)
[2018-11-12] MEDS: Metoprolol XL (24 HR) Succ 50 MG TAB.ER.24H PO SCH (09:27)
[2018-11-12] MEDS: Venlafaxine XR (24 HR) 150 MG CAP.ER.24H PO SCH (09:27)
[2018-11-12] MEDS: Aspirin Enteric Coated 81 MG Tablet PO SCH (09:27)
[2018-11-12] MEDS: Isosorbide MONOnitrate (24 HR) 30 MG TAB.ER.24H PO SCH (09:27)
[2018-11-12] MEDS: Gabapentin 100 MG CAPSULE PO SCH ×3 (09:27→20:32)
--- NOTE | 2018-11-12 12:30 | Internal Med Progress Note ---
Hospitalist Progress Note - Encounter Date of Encounter: 11/12/18 Time of Encounter: 12:27 - Subjective Interval History: Patient is still feels short of breath but better. Review the vitals. Oxygen saturation in lower 90s with nasal cannula 3 L oxygen. Review the lab with slight drop in hemoglobin. Reviewed the chest x-ray with worsening finding and recommended CT chest Patient denies fever chills nausea vomiting headache dizziness chest pain abd ominal pain diarrhea. Not ambulating due to generalized weakness and feeling unsteady - Exam Vitals: Temp Pulse Resp BP Pulse Ox 97.2 F L 66 16 128/62 90 11/12/18 11:11 11/12/18 11:11 11/12/18 11:11 11/12/18 11:11 11/12/18 11:11 Exam: General appearance: No acute distress. 3 L oxygen by nasal cannula Eye exam: EOMI, PERRLA ENT exam: Moist oral mucosa Neck nontender, supple Respiratory exam: decreased breath with few crepts bilateral Cardiovascular exam: Regular rate and rhythm, no systolic murmur Abdominal exam: Soft, nontender, nondistended, positive bowel sounds Extremities exam: No calf tenderness, trace pedal edema Present: Skin-no rash, warm, dry, intact Neurological exam: Alert, awake, oriented 3, CN II-XII intact, no focal deficits. No facial droop. - Assessment and Plan (1) CHF (congestive heart failure) Current Visit: Yes Status: Acute (2) NSTEMI (non-ST elevated myocardial infarction) Current Visit: Yes Status: Acute (3) CAD (coronary artery disease) Current Visit: Yes Status: Chronic (4) Chronic kidney disease Current Visit: No Status: Acute (5) DVT prophylaxis Current Visit: No Status: Acute (6) Diabetes Current Visit: No Status: Acute (7) ESRD (end stage renal disease) on dialysis Current Visit: No Status: Acute (8) Liver cirrhosis Current Visit: No Status: Acute (9) Pulmonary edema Current Visit: No Status: Acute (10) CHF (congestive heart failure) Current Visit: No Status: Chronic (11) HTN (hypertension) Current Visit: No Status: Chronic - Summary of Assessment and Plan Summary of Assessment and Plan: - Assessment and Plan NSTEMI (non-ST elevated myocardial infarction) On admission -patient was complaining shortness of breath at care home, not relieved with breathing treatment. EKG shows ST elevations in leads III, AVF with diffuse T wave inversions and ST depressions in V3-V6. SHALOM: 6 CXR showed pulmonary vascular congestion 80mg IV lasix in ED. had hemodialysis for ultrafiltration. Patient is started to have bleeding from AV fistula while on heparin drip therefore it was stopped. Ldr Rn's on board . heart catheterization done on 11/11/1999-Patient found to have 1/3 patent bypass grafts. CHEN-LAD was patent. EF 50%. Medical management recommended. Atorvastatin increased to 80 mg daily. Imdur 30 mg daily started.Of note, plavix was discontinued last year for thrombocytopenia. Last stent in 2007. Ok to d/c if needed from bleeding standpoint. Continue aspirin, high-dose a statin, home dose of beta claudia. Pulmonary edema- Chest x-ray with vascular congestion. Repeat chest x-ray with worsening finding and recommended for CT chest for loculated pleural effusion therefore ordered. Continue routine hemodialysis Wednesday with additional dialysis and ultrafiltration as needed. Further management as per nephrology. Patient takes 2 L oxygen at home -due to unknown etiology as per patient. CAD (coronary artery disease) Status post CABG 3. Continue aspirin beta claudia high-dose a statin, nitrogly cerin when necessary Diabetes history of type II DM. low dose sliding scale insulin ADA diet ACHS accuchecks HTN (hypertension)-home medicine. Close monitoring of blood pressure HLD (hyperlipidemia) Continue high doses statin CHF (congestive heart failure) last echo from 08/16 showed LVEF 45-50%, mild LVH, mild , no pulmonary hypertension Liver cirrhosis Stable. Continue home medicine ESRD (end stage renal disease) on dialysis on board nephrology for routine dialysis DVT prophylaxis Subcutaneous heparin Generalized weakness-onboard PT OT and family welfare social work professor for discharge plan. - Time Spent with Patient Total time spent is greater than 50% in coordination of care (as documented) at patient's floor/unit and/or counseling patient: 25 - 35 minutes Plan of Care Discussed with: patient Internal Medicine: Result - Labs CBC & Chem 7: 11/12/18 02:12 11/12/18 02:12 Labs: Short CBC 11/12/18 Range/Units 02:12 WBC 5.1 (4.3-11.1) K/mcL Hgb 9.0 L (12.9-16.9) g/dL Hct 30.3 L (37.5-50.1) % Plt Count 64 L (140-400) K/mcL Neutrophils # 2.3 (1.6-8.9) K/mcL BMP 11/12/18 02:12 Sodium 136 Potassium 4.6 Chloride 99 Carbon Dioxide 30 H BUN 27 H Creatinine 5.89 H Glucose 87 Calcium 8.1 L - ABG Interpretation ABG results: ABG ABG pH 7.33 pH Units (7.32-7.45) 11/09/18 14:34 ABG pCO2 57 mmHg (35-45) H 11/09/18 14:34 ABG pO2 113 mmHg (85-104) H 11/09/18 14:34 ABG O2 Saturation 98 % (95-98) 11/09/18 14:34 PT/INR, D-dimer PT 14.5 Seconds (9.4-12.1) H 11/10/18 01:58 - Impressions Impressions Chest X-Ray 11/12/18 00:00 IMPRESSION: 1. Increase in size of the right pleural effusion with question loculation. I would suggest CT scan for further evaluation. 2. Cardiomegaly without overt failure. D/ / Juan Carlos Gonzáles MD / Juan Carlos Gonzáles MD Interpreting Provider: Juan Carlos Gonzáles MD Consult Discharge Plan - Plan Referrals: NONE,PCP [Primary Care Provider] - (1) CHF (congestive heart failure) Qualifiers: Heart failure type: other Qualified Code(s): I50.9 - Heart failure, unspecified (3) CAD (coronary artery disease) Qualifiers: Coronary Disease-Associated Artery/Lesion type: bypass graft [place] vs. transplanted heart: [place] heart Associated angina: without angina Qualified Code(s): I25.810 - Atherosclerosis of coronary artery bypass graft(s) without angina pectoris (4) Chronic kidney disease Qualifiers: Chronic kidney disease stage: unspecified stage Qualified Code(s): N18.9 - Chronic kidney disease, unspecified (6) Diabetes Qualifiers: Diabetes mellitus type: type 2 Diabetes mellitus statement services representative insulin use: without statement services representative use Diabetes mellitus complication status: with unspecified complications (8) Liver cirrhosis Qualifiers: Hepatic cirrhosis type: unspecified hepatic cirrhosis Ascites presence: with ascites Qualified Code(s): K74.60 - Unspecified cirrhosis of liver; R18.8 - Other ascites (9) Pulmonary edema Qualifiers: Qualified Code(s): J81.0 - Acute pulmonary edema (10) CHF (congestive heart failure) Qualifiers: Heart failure type: diastolic Heart failure chronicity: acute Qualified Code(s): I50.31 - Acute diastolic (congestive) heart failure (11) HTN (hypertension) Qualifiers: Hypertension type: essential hypertension Qualified Code(s): I10 - Essential (primary) hypertension
--- NOTE | 2018-11-12 13:30 | Nephrology Progress Note ---
Date of Encounter: 11/12/18 Time of Encounter: 13:30 - Assessment and Plan (1) ESRD (end stage renal disease) on dialysis Current Visit: No Status: Acute HD MWF. Renal vitamins. Renal dose medications. Renal diet. Additional dialysis and ultrafiltration as needed. (2) Anemia Current Visit: No Status: Chronic hgb stable will monitor Qualifiers: Anemia type: due to chronic kidney disease Chronic kidney disease stage: unspecified stage Qualified Code(s): N18.9 - Chronic kidney disease, unspecified; D63.1 - Anemia in chronic kidney disease (3) NSTEMI (non-ST elevated myocardial infarction) Current Visit: Yes Status: Acute per cardiology Subjective Principal diagnosis: esrd Interval history: Patient was seen while on dialysis. He has no new complaint. Patient was asleep. Objective - Vital Signs Vital signs: Vital Signs Temp Pulse Resp BP Pulse Ox 11/12/18 11:11 97.2 F L 66 16 128/62 90 11/12/18 09:51 87 11/12/18 07:20 97.7 F 68 18 130/70 87 11/12/18 05:09 98.3 F 75 18 104/58 96 11/12/18 01:32 98.3 F 65 18 112/69 99 11/11/18 21:56 96 11/11/18 19:00 98.1 F 68 20 120/68 97 11/11/18 15:58 61 116/69 11/11/18 14:45 97.7 F 16 114/91 11/11/18 14:25 125/68 11/11/18 14:10 116/75 11/11/18 13:55 115/57 11/11/18 13:40 124/52 Intake and Output 11/11/18 11/12/18 11/12/18 23:59 07:59 15:59 Intake Total 0 / 120 120 / 120 Balance 0 / 120 120 / 120 Intake: Oral 0 / 120 120 / 120 Other: Meal Breakfast Percent of Meal Consumed 100% # Voids 0 Weight 90.9 kg Blood Glucose* 139 83 110 Patient Weight 11/12/18 23:59 Weight 90.9 kg - General Appearance General appearance: Present: well-developed, well-nourished EENT: Present: ATNC Neck: Present: supple Cardiology: Present: regular rate - Lab 11/12/18 02:12 11/12/18 02:12 Most recent lab results 11/12/18 02:12 Calcium 8.1 L Consult Discharge Plan - Plan Referrals: NONE,PCP [Primary Care Provider] -
[2018-11-12] MEDS: traZODone 50 MG TABLET PO PRN (20:35)
[2018-11-12] MEDS: traMADol 50 MG TABLET PO PRN (20:41)
[2018-11-13 03:03] LABS: Basophils % 0.6 %; Immature Granulocytes % 0.2 % (0-4); Mean Corpuscular HGB Conc 30.3 g/dL (31.6-35.5); Mean Corpuscular Hemoglobin 29.8 pg (28.0-33.3); Mean Corpuscular Volume 98.4 fL (83.0-100.0)
[2018-11-13 03:06] LABS: Eosinophils % 19.4 %; Hematocrit 31.4 % (37.5-50.1); Hemoglobin 9.5 g/dL (12.9-16.9); Immature Platelets 6.7 % (1.1-6.1); Lymphocytes # 1.4 K/mcL (0.6-4.6); Lymphocytes % 27.6 %; Monocytes # 0.6 K/mcL (0.0-1.3); Monocytes % 11.4 %; Neutrophils # 2.1 K/mcL (1.6-8.9); Platelet Count 68 K/mcL (140-400); Red Blood Count 3.19 M/mcL (4.19-5.50); Red Cell Distribution Width 15.7 % (11.5-14.5); Segmented Neutrophils % 40.8 %; White Blood Count 5.1 K/mcL (4.3-11.1)
[2018-11-13 03:13] LABS: Calcium 9.1 mg/dL (8.6-10.3); Potassium 4.7 mEq/L (3.5-5.1)
--- NOTE | 2018-11-13 08:06 | Pulmonology Consult Note ---
Date of Encounter: 11/13/18 Time of Encounter: 08:00 Assessment and Plan (1) Pleural effusion Current Visit: Yes Status: Acute I have reviewed images and there is clearly evidence of large pleural effusion mainly in the right side and with all his cardiac, renal and liver disease, it is obviously his recurrent pleural effusion is most likely will be transudative in nature and he said it felt much better after thoracentesis and I have explained to him and to primary team about the recommendations. Today will need therapeutic and diagnostic thoracentesis and all the risks, alternatives and benefits fo the procedure explained to the patient and he understand and agreed. I check his pleural effusion with US and clearly there is a large pocket mainly in the right side. I believe patient will benefit from Pleurax Pleuaral catheter with next build up pleural effusion and that can be done as outpatient. Patient has thrombocytopnea and that is most likely secondary to his underlying liver disease and his condition is even more complicated with history of ESRD that affect platelets function and put him at high risk of bleeding. Patient gave consent in the presence of the nurse and will proceed for mainly therapeutic thoracentesis and will send fluid for analysis. Thank you for consult and please call for any questions. (2) Chronic respiratory failure with hypoxia Current Visit: No Status: Acute Hopefully thoracentisis will help and to keep SPO2 around 90% History of Present Illness Consult date: 11/13/18 Requesting physician: Shireen Mendiola Reason for consult: pleural effusion Chief complaint: Shortness of Breath History of present illness: This is a pleasant 78 year old male with multiple medical problems mainly CHF and ESRD on HD and he has history of liver cirrhosis who presented with shortness of breath and he said he had thoracentesis about 3 weeks ago and he felt very good after that and he present today with pleural effusion again and pulmonary consulted for evaluation. Patient stated he has no bleeding and he denies any significant productive cough or wheezing. He has been treated for fluid overlad and nephrology has increased his dialysis treatment. He denies any fever or chill and denies any other symptoms at this time. He denies any hemoptysis. He denies any fever or chills. Past Med Surg Social Fam HX - Past Medical History Medical history: aortic aneurysm, arthritis, CHF, coronary artery disease, diabetes, dialysis, hyperlipidemia, hypertension, renal disease Additional medical history: BLADDER NECK CONTRACTURE, SQUAMOUS CELL CANCER. 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), triple bypass - Social History Smoking Status: Former smoker Smokeless Tobacco Status: No Alcohol use: none Drug use: none - Family History Father Adopted: No Family Member Ethnicity: Non- Living Status: Hx Family Cardiac Disorders: Yes ([place]) Mother Adopted: No Family Member Ethnicity: Non- Living Status: Hx Family Cancer: Yes Brother Family Member Ethnicity: Non- Living Status: Still Living Sister Adopted: No Family Member Ethnicity: Non- Living Status: Still Living Hx Family Cardiac Disorders: Yes Hx Family Respiratory Disorders: No Hx Family Cancer: Yes Hx Family GI Disorders: No Hx Family Endocrine Disorder: Yes Hx Family Neuromuscular Disorders: No Hx Family Neurologic Disorders: No Hx Family HEENT Disorders: No Hx Family Autoimmune Disorders: No Medications and Allergies Venlafaxine XR (24 HR) [Effexor Xr] 150 mg PO 199901/15/18 [History] Trazodone HCl 100 mg PO HS PRN 01/31/18 [History] Calcium Acetate [Phos-LO] 1,334 mg PO TIDWM 07/03/18 [History] Nitroglycerin [Nitrostat] 0.4 mg SL Q5M PRN 07/04/18 [History] Aspirin [Lo-Dose Aspirin EC] 81 mg PO 1600 08/23/18 [History] Acetaminophen [Tylenol 8 Hour] 650 mg PO Q6H PRN 10/17/18 [History] Guaifenesin [Mucinex] 600 mg PO BID PRN 10/17/18 [History] Ipratropium/Albuterol Neb [Duoneb] 3 ml IH Q6HR PRN 10/17/18 [History] Gabapentin [Neurontin] 100 mg PO TID 11/09/18 [History] Metoprolol Succinate 200 mg PO 1600 11/09/18 [History] Ondansetron ODT [Zofran ODT] 4 mg SL Q6HR PRN 11/09/18 [History] Atorvastatin Calcium 80 mg PO DAILY #30 tablet 11/14/18 [Rx] Isosorbide MONOnitrate (24 HR) [Imdur] 30 mg PO DAILY #30 tab.er.24h 11/14/18 [ Rx] Tramadol HCl [Ultram] 50 mg PO BID PRN 2 Days #2 tablet 11/14/18 [Rx] Allergy/AdvReac Type Severity Reaction Status Date / Time No Known Allergies Allergy Verified 11/09/18 07:04 All Systems: The remainder of the systems were reviewed and are negative Physical Examination Vital Signs: Vital Signs, Last 4 Hours Temp Pulse Resp BP Pulse Ox 11/13/18 05:01 97.6 F 63 18 134/68 97 General appearance: appears uncomfortable Eyes: nonicteric ENT: oropharynx moist Neck: supple, no lymphadenopathy Effort: mildly labored Auscultation: bilateral: diminished breath sounds Percussion: bilateral: not dull Cardiovascular: regular rate and rhythm Gastrointestinal: normoactive bowel sounds, non-distended Extremities: no cyanosis, edema normal mental status, non-focal exam mood appropriate Results - Laboratory Findings CBC and BMP: 11/14/18 03:32 11/14/18 03:32 ABG ABG pH 7.33 pH Units (7.32-7.45) 11/09/18 14:34 ABG pCO2 57 mmHg (35-45) H 11/09/18 14:34 ABG pO2 113 mmHg (85-104) H 11/09/18 14:34 ABG O2 Saturation 98 % (95-98) 11/09/18 14:34 PT/INR, D-dimer PT 14.5 Seconds (9.4-12.1) H 11/10/18 01:58 Abnormal lab findings: Abnormal lab results RBC 3.19 M/mcL (4.19-5.50) L 11/13/18 01:53 Hgb 9.5 g/dL (12.9-16.9) L 11/13/18 01:53 Hct 31.4 % (37.5-50.1) L 11/13/18 01:53 MCV 100.7 fL (83.0-100.0) H 11/12/18 02:12 MCHC 30.3 g/dL (31.6-35.5) L 11/13/18 01:53 RDW 15.7 % (11.5-14.5) H 11/13/18 01:53 Plt Count 68 K/mcL (140-400) L 11/13/18 01:53 1.0 K/mcL (0.0-0.6) H 11/13/18 01:53 Decreased (Normal) L 11/10/18 01:58 Present (Not Present) A 11/10/18 01:58 Immature Plt Fraction 6.7 % (1.1-6.1) H 11/13/18 01:53 Present (Not Present) A 11/10/18 01:58 PT 14.5 Seconds (9.4-12.1) H 11/10/18 01:58 Heparin Anti-Xa, Unfract 0.23 IU/mL (0.30-0.70) L 11/10/18 01:58 ABG pCO2 57 mmHg (35-45) H 11/09/18 14:34 ABG pO2 113 mmHg (85-104) H 11/09/18 14:34 ABG HCO3 30 mEq/L (21-27) H 11/09/18 14:34 ABG Total CO2 32 mEq/L (20-26) H 11/09/18 14:34 Sodium 135 mEq/L (136-145) L 11/13/18 01:53 Potassium 5.4 mEq/L (3.5-5.1) H 11/11/18 07:12 Chloride 97 mEq/L (98-107) L 11/13/18 01:53 Carbon Dioxide 30 mEq/L (23-29) H 11/12/18 02:12 BUN 33 mg/dL (8-23) H 11/13/18 01:53 7.23 mg/dL (0.70-1.30) H 11/13/18 01:53 Est GFR ( Amer) 9 (> 60) L 11/13/18 01:53 Est GFR (Non-Af Amer) 7 (> 60) L 11/13/18 01:53 5 (6-26) L 11/13/18 01:53 Glucose 132 mg/dL (70-105) H 11/10/18 01:58 POC Glucose 135 mg/dL (70-99) H 11/12/18 22:20 Calcium 8.1 mg/dL (8.6-10.3) L 11/12/18 02:12 109 Units/L (34-104) H 11/09/18 07:04 0.09 ng/mL (< 0.04) H* 11/09/18 13:38 B-Natriuretic Peptide 3320 pg/mL (Less than 100) H 11/09/18 07:04 3.2 g/dL (3.5-5.7) L 11/09/18 07:04 4.8 g/dL (2.4-3.5) H 11/09/18 07:04 0.7 (1.1-2.2) L 11/09/18 07:04 - Diagnostic Findings Chest x-ray: report reviewed, image reviewed CT scan - chest: report reviewed, image reviewed - Clinical Findings Intake & Output: Intake & Output 11/12/18 11/13/18 11/13/18 23:59 07:59 15:59 Intake Total 0 / 120 0 / 0 Balance 0 / 120 0 / 0 Weight 91.5 kg Consult Discharge Plan - Plan Instructions: Tramadol (By mouth), Isosorbide Mononitrate (By mouth), Atorvastatin (By mouth) Referrals: Brandon Dahl MD [Partnered Physician] - 11/23/18 1:15 pm (1 week, possible plurex cath placement ) NONE,PCP [Primary Care Provider] - Prescriptions: Atorvastatin Calcium 80 mg PO DAILY #30 tablet Isosorbide MONOnitrate (24 HR) [Imdur] 30 mg PO DAILY #30 tab.er.24h Tramadol HCl [Ultram] 50 mg PO BID PRN 2 Days #2 tablet PRN Reason: Pain
[2018-11-13] MEDS: Insulin LISPRO 300 UNITS/3 ML VIAL SQ SCH ×4 (08:38→21:30)
[2018-11-13] MEDS: Gabapentin 100 MG CAPSULE PO SCH ×3 (09:09→20:48)
[2018-11-13] MEDS: Calcium Acetate 667 MG CAPSULE PO SCH ×3 (09:09→17:08)
[2018-11-13] MEDS: Isosorbide MONOnitrate (24 HR) 30 MG TAB.ER.24H PO SCH (09:10)
[2018-11-13] MEDS: Aspirin Enteric Coated 81 MG Tablet PO SCH (09:10)
[2018-11-13] MEDS: Venlafaxine XR (24 HR) 150 MG CAP.ER.24H PO SCH (09:10)
[2018-11-13] MEDS: Metoprolol XL (24 HR) Succ 50 MG TAB.ER.24H PO SCH (09:10)
[2018-11-13] MEDS: *HR* LORazepam 1 MG TABLET PO SCH ×2 (09:10→20:48)
--- NOTE | 2018-11-13 09:22 | Procedure Note ---
Date of procedure: 11/13/18 Pre-op diagnosis: Bilateral pleural effusion with shortness of breath Post-op diagnosis: same Procedure: Diagnostic and therapeutic thoracentesis Medications: Local lidocaine 1% 10 mL No immediate complications After obtaining informed consent, the patient was placed in a sitting position. Using ultrasound, the right hemithorax was examined revealing a moderately sized pleural effusion. The best entry site was marked. The area was prepped in the usual sterile fashion. Fluid was aspirated using a catheter 8 range over 18- gauge needle which was placed in the mid-scapular line. 1400 mL of serosanguineous fluid was removed. Fluid was sent for routine pleural analysis. Patient's condition improved after the procedure. Chest x-ray was ordered for any evidence of pneumothorax or complications. Anesthesia: local Surgeon: Brandon Dahl Was there an assistant fitness manager present: No Estimated blood loss (cc): 0.5 Specimen: yes Condition: stable Disposition: floor
[2018-11-13 10:22] LABS: Total Protein,Pleural Fluid 3.3 g/dL
--- NOTE | 2018-11-13 10:50 | Internal Med Progress Note ---
Hospitalist Progress Note - Encounter Date of Encounter: 11/13/18 Time of Encounter: 11:03 - Subjective Interval History: Still has short of breath but better. Patient had pleurocentesis done with almost 1400 M of sero-sanguinous fluid removed by pulmonology team. Reviewed the vitals and lab. Patient denies fever chills nausea vomiting headache dizziness abdominal pain diarrhea. - Exam Vitals: Temp Pulse Resp BP Pulse Ox 97.0 F L 68 18 135/72 97 11/13/18 08:10 11/13/18 08:10 11/13/18 08:10 11/13/18 08:10 11/13/18 05:01 Exam: General appearance: No acute distress. 3 L oxygen by nasal cannula Eye exam: EOMI, PERRLA ENT exam: Moist oral mucosa Neck nontender, supple Respiratory exam: decreased breath bilateral Cardiovascular exam: Regular rate and rhythm, no systolic murmur Abdominal exam: Soft, nontender, nondistended, positive bowel sounds Extremities exam: No calf tenderness, trace pedal edema Present: Skin-no rash, warm, dry, intact Neurological exam: Alert, awake, oriented 3, CN II-XII intact, no focal deficits. No facial droop. - Assessment and Plan (1) CHF (congestive heart failure) Current Visit: Yes Status: Acute (2) NSTEMI (non-ST elevated myocardial infarction) Current Visit: Yes Status: Acute (3) CAD (coronary artery disease) Current Visit: Yes Status: Chronic (4) Chronic kidney disease Current Visit: No Status: Acute (5) DVT prophylaxis Current Visit: No Status: Acute (6) Diabetes Current Visit: No Status: Acute (7) ESRD (end stage renal disease) on dialysis Current Visit: No Status: Acute (8) Liver cirrhosis Current Visit: No Status: Acute (9) Pulmonary edema Current Visit: No Status: Acute (10) CHF (congestive heart failure) Current Visit: No Status: Chronic (11) HTN (hypertension) Current Visit: No Status: Chronic (12) Pleural effusion Current Visit: Yes Status: Acute - Summary of Assessment and Plan Summary of Assessment and Plan: - Assessment and Plan Pleural effusion- based on CT findings. Patient also has been short of breath even after hemodialysis. Consulted strapper operator who did perform pleurocentesis at bedside with 1400 mL removal of fluid today morning. Patient is scheduled for hemodialysis tomorrow. Will repeat chest x-ray after the dialysis. The patient continued to improve and plan for discharge tomorrow possibly NSTEMI (non-ST elevated myocardial infarction) On admission -patient was complaining shortness of breath at fpc, not relieved with breathing treatment. EKG shows ST elevations in leads III, AVF with diffuse T wave inversions and ST depressions in V3-V6. SHALOM: 6 CXR showed pulmonary vascular congestion 80mg IV lasix in ED. had hemodialysis for ultrafiltration. Patient is started to have bleeding from AV fistula while on heparin drip therefore it was stopped. Divisional Storekeeper's on board . heart catheterization done on 11/11/1999-Patient found to have 1/3 patent bypass grafts. CHEN-LAD was patent. EF 50%. Medical management recommended. Atorvastatin increased to 80 mg daily. Imdur 30 mg daily started.Of note, plavix was discontinued last year for thrombocytopenia. Last stent in 2007. Ok to d/c if needed from bleeding standpoint. Continue aspirin, high-dose a statin, home dose of beta claudia. Pulmonary edema- Chest x-ray with vascular congestion. Repeat chest x-ray with worsening finding Continue routine hemodialysis Wednesday with additional dialysis and ultrafiltration as needed. Further management as per nephrology. Patient takes 2 L oxygen at home -due to unknown etiology as per patient. CAD (coronary artery disease) Status post CABG 3. Continue aspirin beta claudia high-dose a statin, nitroglycerin when necessary Diabetes history of type II DM. low dose sliding scale insulin ADA diet ACHS accuchecks HTN (hypertension)-home medicine. Close monitoring of blood pressure HLD (hyperlipidemia) Continue high doses statin CHF (congestive heart failure) last echo from 08/16 showed LVEF 45-50%, mild LVH, mild , no pulmonary hypertension Liver cirrhosis With portal hypertension but no ascites. Stable. Continue home medicine ESRD (end stage renal disease) on dialysis on board nephrology for routine dialysis. Hemodialysis is scheduled tomorrow. DVT prophylaxis Subcutaneous heparin Generalized weakness-onboard PT OT and social and political studies professor for discharge plan. - Time Spent with Patient Total time spent is greater than 50% in coordination of care (as documented) at patient's floor/unit and/or counseling patient: 25 - 35 minutes Plan of Care Discussed with: patient Internal Medicine: Result - Labs CBC & Chem 7: 11/13/18 01:53 11/13/18 01:53 Labs: Short CBC 11/13/18 Range/Units 01:53 WBC 5.1 (4.3-11.1) K/mcL Hgb 9.5 L (12.9-16.9) g/dL Hct 31.4 L (37.5-50.1) % Plt Count 68 L (140-400) K/mcL Neutrophils # 2.1 (1.6-8.9) K/mcL BMP 11/13/18 01:53 Sodium 135 L Potassium 4.7 Chloride 97 L Carbon Dioxide 28 BUN 33 H Creatinine 7.23 H Glucose 84 Calcium 9.1 - ABG Interpretation ABG results: ABG ABG pH 7.33 pH Units (7.32-7.45) 11/09/18 14:34 ABG pCO2 57 mmHg (35-45) H 11/09/18 14:34 ABG pO2 113 mmHg (85-104) H 11/09/18 14:34 ABG O2 Saturation 98 % (95-98) 11/09/18 14:34 PT/INR, D-dimer PT 14.5 Seconds (9.4-12.1) H 11/10/18 01:58 - Impressions Impressions Chest CT 11/12/18 12:24 IMPRESSION: 1. Large simple right pleural effusion, increased from the comparison study. Complete right middle lobe and right lower lobe atelectasis. Some passive dependent opacification in the right upper lobe. 2. Stable loculated left pleural effusion with dependent left lower lobe volume loss. 3. Atherosclerotic calcification in the aorta and coronary circulation. Stable ectasia of the ascending aorta at 4.4 cm. 4. Some infiltration of the fat surrounding the distal esophagus raising the possibility of an esophagitis. 5. Redemonstration of cirrhosis with mild splenomegaly consistent with portal hypertension. No significant ascites in the upper abdomen. D/ / 11/12/2018 19:48:42 César Hull MD / bro Interpreting Provider: César Hull MD Chest X-Ray 11/13/18 08:30 IMPRESSION: Status post right thoracentesis with small residual right pleural effusion. No pneumothorax. D/ / 11/13/2018 08:57:20 Dandy He MD / hannah Interpreting Provider: Dandy He MD Consult Discharge Plan - Plan Referrals: NONE,PCP [Primary Care Provider] - (1) CHF (congestive heart failure) Qualifiers: Heart failure type: other Qualified Code(s): I50.9 - Heart failure, unspecified (3) CAD (coronary artery disease) Qualifiers: Coronary Disease-Associated Artery/Lesion type: bypass graft [place] vs. 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 gauger supervisor insulin use: without terminal gauger supervisor use Diabetes mellitus complication status: with unspecified complications (8) Liver cirrhosis Qualifiers: Hepatic cirrhosis type: unspecified hepatic cirrhosis Ascites presence: with ascites Qualified Code(s): K74.60 - Unspecified cirrhosis of liver; R18.8 - Other ascites (9) Pulmonary edema Qualifiers: Qualified Code(s): J81.0 - Acute pulmonary edema (10) CHF (congestive heart failure) Qualifiers: Heart failure type: diastolic Heart failure chronicity: acute Qualified Code(s): I50.31 - Acute diastolic (congestive) heart failure (11) HTN (hypertension) Qualifiers: Hypertension type: essential hypertension Qualified Code(s): I10 - Essential (primary) hypertension
--- NOTE | 2018-11-13 13:03 | Nephrology Progress Note ---
Date of Encounter: 11/13/18 Time of Encounter: 13:03 - Assessment and Plan (1) ESRD (end stage renal disease) on dialysis Current Visit: No Status: Acute HD MWF. Renal vitamins. Renal dose medications. Renal diet. Additional dialysis and ultrafiltration as needed. (2) Anemia Current Visit: No Status: Chronic hgb stable will monitor Qualifiers: Anemia type: due to chronic kidney disease Chronic kidney disease stage: unspecified stage Qualified Code(s): N18.9 - Chronic kidney disease, unspecified; D63.1 - Anemia in chronic kidney disease (3) NSTEMI (non-ST elevated myocardial infarction) Current Visit: Yes Status: Acute Subjective Principal diagnosis: esrd Interval history: Patient was seen. He has no new complaint. ROS stable or negative. Objective - Vital Signs Vital signs: Vital Signs Temp Pulse Resp BP Pulse Ox 11/13/18 08:10 97.0 F L 68 18 135/72 11/13/18 05:01 97.6 F 63 18 134/68 97 11/12/18 23:06 95 11/12/18 22:16 97.8 F 65 18 137/81 96 11/12/18 16:17 97.7 F 65 18 127/68 100 Intake and Output 11/12/18 11/13/18 11/13/18 23:59 07:59 15:59 Intake Total 0 / 120 0 / 0 Output Total 1200 / 1200 Balance 0 / 120 0 / -1200 -1200 / -1200 Intake: Oral 0 / 120 0 / 0 Output: Thoracentesis 1200 / 1200 Other: Meal Dinner Percent of Meal Consumed 0% # Voids 0 0 Weight 91.5 kg Blood Glucose* 135 228 Patient Weight 11/13/18 23:59 Weight 91.5 kg - General Appearance General appearance: Present: well-developed, well-nourished EENT: Present: ATNC Neck: Present: supple Cardiology: Present: regular rate Neurologic: Present: alert and oriented x3 Psychiatric: Present: mood/affect appropriate - Lab 11/13/18 01:53 11/13/18 01:53 Most recent lab results 11/13/18 01:53 Calcium 9.1 Consult Discharge Plan - Plan Referrals: NONE,PCP [Primary Care Provider] -
[2018-11-13] MEDS: traMADol 50 MG TABLET PO PRN (20:48)
[2018-11-14 04:17] LABS: Basophils % 0.7 %; Immature Granulocytes % 0.2 % (0-4); Monocytes % 10.8 %
[2018-11-14 04:19] LABS: Eosinophils % 18.5 %; Hematocrit 31.6 % (37.5-50.1); Hemoglobin 9.5 g/dL (12.9-16.9); Immature Platelets 6.7 % (1.1-6.1); Lymphocytes # 1.5 K/mcL (0.6-4.6); Mean Corpuscular HGB Conc 30.1 g/dL (31.6-35.5); Mean Corpuscular Hemoglobin 29.7 pg (28.0-33.3); Mean Corpuscular Volume 98.8 fL (83.0-100.0); Mean Platelet Volume 10.6 fL (9.4-12.4); Monocytes # 0.6 K/mcL (0.0-1.3); Neutrophils # 2.3 K/mcL (1.6-8.9); Red Cell Distribution Width 15.8 % (11.5-14.5); Segmented Neutrophils % 41.8 %; White Blood Count 5.5 K/mcL (4.3-11.1)
[2018-11-14 04:20] LABS: Platelet Count 83 K/mcL (140-400)
[2018-11-14 04:39] LABS: Calcium 9.4 mg/dL (8.6-10.3)
[2018-11-14] MEDS ORDERED: 0.9 % Sodium Chloride 250 ML IVC PRN (08:27)
[2018-11-14] MEDS: Gabapentin 100 MG CAPSULE PO SCH ×3 (08:47→20:56)
[2018-11-14] MEDS: traMADol 50 MG TABLET PO PRN ×2 (08:47→19:39)
[2018-11-14] MEDS: Aspirin Enteric Coated 81 MG Tablet PO SCH (08:47)
[2018-11-14] MEDS: Calcium Acetate 667 MG CAPSULE PO SCH ×3 (08:47→17:09)
[2018-11-14] MEDS: Venlafaxine XR (24 HR) 150 MG CAP.ER.24H PO SCH (08:47)
[2018-11-14] MEDS: *HR* LORazepam 1 MG TABLET PO SCH ×2 (08:47→20:23)
[2018-11-14] MEDS: Insulin LISPRO 300 UNITS/3 ML VIAL SQ SCH ×4 (08:48→20:30)
[2018-11-14] MEDS: Ondansetron ODT 4 MG TAB.RAPDIS SL PRN (10:14)
--- NOTE | 2018-11-14 14:17 | Discharge Summary ---
- NOTES TO OUTPATIENT PROVIDER Notes to Outpatient Provider: NSTEMI managed medically on BB/ASA/increased statin/imdur, recurrent pleural effusion tapped and outpatient should consider pleurx catheter Date of Encounter: 11/14/18 Time of Encounter: 14:15 Hospital course: Dear Doctors, I recently had the opportunity to care for this patient during their recent hospital stay at [facility]. Ike Esquivel is a 78 M w hx ESRD on HD MWF, HFrEF 45%, CAD s/p CABG, COPD on 2L, HTN, DM2, obesity, who presented at time of admission with shortness of breath unrelieved with breathing treatments. In the ED, pt noted to be fluid overloaded, CXR showing vascular congestion, with ECG showing anterolateral ST depressions and troponin elevation to 0.12. In the hospital, Neph consulted for HD and volume management. Cardio consulted for NSTEMI, and pt maintained on hep gtt until [facility] which showed that only 1 of 3 CABGs (CHEN to LAD) was patent, rec'd medical management with ASA, BB, and statin. He was also noted to have recurrent R thoracentesis which was tapped, which is his third thoracentesis in last 2 months. Patient to follow with outpatient Pulm for consideration of PleurX catheter. Dx: NSTEMI, recurrent pleural effusion, acute on chronic HFpEF Pertinent tests/consults: Cardio & Neph & Pulm consultations, C, thoracentesis Follow up: PCP, Cardio, Neph at HD, Pulm Tests pending: none Med changes: - increase atorvastatin to 80 - new Imdur 30 daily - stop ativan 1 bid Mental status: awake, fully oriented Code status: Table Saw Operator spent on discharge: 35 minutes It has been my pleasure participating in this patient's care. Please contact me with any questions or concerns regarding their hospital stay. Sincerely, Hans Lazar MD - Discharge Medications Prescriptions: New Atorvastatin Calcium 80 mg PO DAILY #30 tablet Isosorbide MONOnitrate (24 HR) [Imdur] 30 mg PO DAILY #30 tab.er.24h Continued Venlafaxine XR (24 HR) [Effexor Xr] 150 mg PO 2000 Trazodone HCl 100 mg PO HS PRN PRN Reason: Sleep Calcium Acetate [Phos-LO] 1,334 mg PO TIDWM Nitroglycerin [Nitrostat] 0.4 mg SL Q5M PRN PRN Reason: Chest Pain Aspirin [Lo-Dose Aspirin EC] 81 mg PO 1600 Acetaminophen [Tylenol 8 Hour] 650 mg PO Q6H PRN PRN Reason: Pain Guaifenesin [Mucinex] 600 mg PO BID PRN PRN Reason: Cough Ipratropium/Albuterol Neb [Duoneb] 3 ml IH Q6HR PRN PRN Reason: Shortness Of Breath Ondansetron ODT [Zofran ODT] 4 mg SL Q6HR PRN PRN Reason: Nausea Gabapentin [Neurontin] 100 mg PO TID Metoprolol Succinate 200 mg PO 1600 Tramadol HCl [Ultram] 50 mg PO BID PRN 2 Days #2 tablet PRN Reason: Pain Discontinued Clopidogrel [Plavix] 75 mg PO 1999 Atorvastatin Calcium [Lipitor] 20 mg PO 1999 LORazepam [Ativan] 1 mg PO BID Home Medications: Venlafaxine XR (24 HR) [Effexor Xr] 150 mg PO 199901/15/18 [History] Trazodone HCl 100 mg PO HS PRN 01/31/18 [History] Calcium Acetate [Phos-LO] 1,334 mg PO TIDWM 07/03/18 [History] Nitroglycerin [Nitrostat] 0.4 mg SL Q5M PRN 07/04/18 [History] Aspirin [Lo-Dose Aspirin EC] 81 mg PO 1600 08/23/18 [History] Acetaminophen [Tylenol 8 Hour] 650 mg PO Q6H PRN 10/17/18 [History] Guaifenesin [Mucinex] 600 mg PO BID PRN 10/17/18 [History] Ipratropium/Albuterol Neb [Duoneb] 3 ml IH Q6HR PRN 10/17/18 [History] Gabapentin [Neurontin] 100 mg PO TID 11/09/18 [History] Metoprolol Succinate 200 mg PO 1600 11/09/18 [History] Ondansetron ODT [Zofran ODT] 4 mg SL Q6HR PRN 11/09/18 [History] Atorvastatin Calcium 80 mg PO DAILY #30 tablet 11/14/18 [Rx] Isosorbide MONOnitrate (24 HR) [Imdur] 30 mg PO DAILY #30 tab.er.24h 11/14/18 [Rx] Tramadol HCl [Ultram] 50 mg PO BID PRN 2 Days #2 tablet 11/14/18 [Rx] Allergies/Adverse Reactions: Allergy/AdvReac Type Severity Reaction Status Date / Time No Known Allergies Allergy Verified 11/09/18 07:04 Date of admission: 11/11/18 10:50 Primary care physician: PCP NONE Consults: 11/09/18 08:11 Consult to Cardiology [CONS] Stat Comment: Consulting Provider: Cardiology Faye Reason for Consult: elevation of ST and troponin Call Completed: Yes 11/09/18 09:08 Consult to Nephrology [CONS] Routine Consulting Provider: Kidney Faye/AGUSTINA/TRAN/SHRADDHA Reason for Consult: dialysis patient MWF Call Completed: Yes 11/09/18 11:35 Consult to Nutrition [CONS] Routine Comment: Consulting Provider: NUTRITION Reason for Dietary Consult: MST Score Consult to Pastoral Services [CONS] Routine Comment: 11/09/18 16:00 Consult to Dialysis [CONS] ONCE 11/11/18 10:29 Consult to Occupational Therapy [CONS] Routine Comment: Evaluate, develop and implement POC Reason for Consult: Generalized weakness Does patient have active BEDREST order?: No Is patient medically & hemodynamically stable?: Yes Patient assessed for mobility or mobilized this visit?: No Consult to Physical Therapy [CONS] Routine Comment: Evaluate, develop and implement POC Reason for Consult: Generalized weakness Does patient have active BEDREST order?: No Is patient medically & hemodynamically stable?: Yes Patient assessed for mobility or mobilized this visit?: No 11/11/18 10:30 Consult to Carpenters [CONS] Routine Reason for SW Consult: Discharge plan 11/11/18 11:00 Consult to Dialysis [CONS] ONCE 11/13/18 07:48 Consult to Pulmonology [CONS] Routine Consulting Provider: Pulm Crit Care & Sleep Faye Reason for Consult: Large pleural effusion Call Completed: Yes 11/14/18 08:30 Consult to Dialysis [CONS] ONCE - Constitutional Vitals: Temp Pulse Resp BP Pulse Ox 97.7 F 69 17 118/50 99 11/14/18 13:10 11/14/18 07:21 11/14/18 13:10 11/14/18 13:10 06/17/19 07:21 Exam: General: NAD, good eye contact, elderly Thoracic: decent aeration, diminished R base Cardio: Normal S1 and S2, regular rate and rhythm Abdomen: Soft, nontender, mild distention Extremities: Warm, well perfused. Pitting LE edema Skin: Intact. No rashes, bruises, or ulcers Neuro: Awake, fully oriented. Speech fluent - Patient Status Disposition: Transfer SNF Condition: Fair Functional capacity at discharge: uses cane/walker Overall status at discharge: patient is back to baseline - Discharge Instructions Follow Up With: NONE,PCP [Primary Care Provider] - Brandon Dahl MD [Partnered Physician] - (1 week) Forms: ED Satisfaction Letter - Diet and Activity Activity: resume usual activities as tolerated Diet: advance to your usual diet (renal diet, 1.5L fluid restrict), diabetic diet, low salt diet
--- NOTE | 2018-11-14 15:52 | Physician Discharge Referral ---
ExtendedCare Referral Info Transfer To: SNF Provider in Charge after Transfer: PCP Institutional Level of Care: Skilled - Transfer Medications Prescriptions: Atorvastatin Calcium 80 mg PO DAILY #30 tablet Isosorbide MONOnitrate (24 HR) [Imdur] 30 mg PO DAILY #30 tab.er.24h Tramadol HCl [Ultram] 50 mg PO BID PRN 2 Days #2 tablet PRN Reason: Pain Home Medications: Venlafaxine XR (24 HR) [Effexor Xr] 150 mg PO 199901/15/18 [History] Trazodone HCl 100 mg PO HS PRN 01/31/18 [History] Calcium Acetate [Phos-LO] 1,334 mg PO TIDWM 07/03/18 [History] Nitroglycerin [Nitrostat] 0.4 mg SL Q5M PRN 07/04/18 [History] Aspirin [Lo-Dose Aspirin EC] 81 mg PO 1600 08/23/18 [History] Acetaminophen [Tylenol 8 Hour] 650 mg PO Q6H PRN 10/17/18 [History] Guaifenesin [Mucinex] 600 mg PO BID PRN 10/17/18 [History] Ipratropium/Albuterol Neb [Duoneb] 3 ml IH Q6HR PRN 10/17/18 [History] Gabapentin [Neurontin] 100 mg PO TID 11/09/18 [History] Metoprolol Succinate 200 mg PO 1600 11/09/18 [History] Ondansetron ODT [Zofran ODT] 4 mg SL Q6HR PRN 11/09/18 [History] Atorvastatin Calcium 80 mg PO DAILY #30 tablet 11/14/18 [Rx] Isosorbide MONOnitrate (24 HR) [Imdur] 30 mg PO DAILY #30 tab.er.24h 11/14/18 [Rx] Tramadol HCl [Ultram] 50 mg PO BID PRN 2 Days #2 tablet 11/14/18 [Rx] Allergies/Adverse Reactions: Allergy/AdvReac Type Severity Reaction Status Date / Time No Known Allergies Allergy Verified 11/09/18 07:04 - Respiratory Orders Smoking Cessation: Smoking cessation has been advised. For more information, call the [place] Tobacco Quit Line at 4-910-XVEH-NOW. - Ancillary Orders May use pressure relief devices daily prn, May go on MALI w/family/respon alliance party w/meds at nurse discretion PRN, May consult with Dentist, Medicaid Analyst, Harbour Master PRN - Advance Directives Code Status: Full Code - Rehabiliation Orders Rehab Potential: Fair Rehab Orders: Evaluation for Physical Therapy, Evaluation for Occupational Therapy - Treatments Skin tear care topically daily PRN per policy - Diet Orders No Concentrated Sweets, Renal CERTIFICATION: I certify that the transfer of the above named patient to an Extended Care Facility is necessary for the continuing treatment of the diagnosis listed. The above information is true and accurate reflection of patient's current condition. Confidential - Redisclosure prohibited without a patient's written consent.
[2018-11-14] MEDS: Metoprolol XL (24 HR) Succ 50 MG TAB.ER.24H PO SCH ×2 (17:09→17:10)
[2018-11-14] MEDS: Isosorbide MONOnitrate (24 HR) 30 MG TAB.ER.24H PO SCH (17:09)
--- NOTE | 2018-11-14 17:36 | Pulmonology Progress Note ---
Date of Encounter: 11/14/18 Time of Encounter: 10:00 Assessment and Plan (1) CHF (congestive heart failure) Current Visit: No Status: Chronic Patient has background of congestive heart failure that is worsening his hypoxic respiratory failure complicated by end-stage renal disease Qualifiers: Heart failure type: diastolic Heart failure chronicity: acute Qualified Code(s): I50.31 - Acute diastolic (congestive) heart failure (2) Chronic respiratory failure with hypoxia Current Visit: No Status: Acute Complicated by end-stage renal disease and systolic heart failure leading to recurrent pleural effusion (3) Pleural effusion Current Visit: Yes Status: Acute Patient has large right-sided pleural effusion which was tapped yesterday underwent therapeutic thoracentesis pleural fluid more consistent with a transudate gave option about the possible Pleurx catheter as an outpatient if the patient decides please arrange a follow-up with pulmonary for possible Pleurx catheter placement. Subjective Principal diagnosis: esrd Interval history: Patient current presenting with acute coronary syndrome was evaluated by cardiology and underwent cardiac catheterization pulmonary was consulted for worsening shortness of breath with hypoxic respiratory failure Pleural effusion enlarging the recurrent large right-sided pleural effusion and underwent thoracentesis. Patient is symptomatically well tolerated dialysis today. Objective PUL Vital signs: Last Vital Signs Temp 98.1 F 11/14/18 17:06 Pulse 68 11/14/18 17:06 Resp 16 11/14/18 17:06 BP 124/76 11/14/18 17:06 Pulse Ox 98 11/14/18 17:06 Auscultation: bilateral: diminished breath sounds (Bilateral diminished in the bases) Cardiovascular: regular rate and rhythm Gastrointestinal: normoactive bowel sounds Extremities: no edema normal mental status, non-focal exam Results - Laboratory Findings CBC and BMP: 11/14/18 03:32 11/14/18 03:32 ABG ABG pH 7.33 pH Units (7.32-7.45) 11/09/18 14:34 ABG pCO2 57 mmHg (35-45) H 11/09/18 14:34 ABG pO2 113 mmHg (85-104) H 11/09/18 14:34 ABG O2 Saturation 98 % (95-98) 11/09/18 14:34 PT/INR, D-dimer PT 14.5 Seconds (9.4-12.1) H 11/10/18 01:58 Abnormal lab findings: Abnormal lab results RBC 3.20 M/mcL (4.19-5.50) L 11/14/18 03:32 Hgb 9.5 g/dL (12.9-16.9) L 11/14/18 03:32 Hct 31.6 % (37.5-50.1) L 11/14/18 03:32 MCV 100.7 fL (83.0-100.0) H 11/12/18 02:12 MCHC 30.1 g/dL (31.6-35.5) L 11/14/18 03:32 RDW 15.8 % (11.5-14.5) H 11/14/18 03:32 Plt Count 83 K/mcL (140-400) L 11/14/18 03:32 1.0 K/mcL (0.0-0.6) H 11/14/18 03:32 Decreased (Normal) L 11/10/18 01:58 Present (Not Present) A 11/10/18 01:58 Immature Plt Fraction 6.7 % (1.1-6.1) H 11/14/18 03:32 Present (Not Present) A 11/10/18 01:58 PT 14.5 Seconds (9.4-12.1) H 11/10/18 01:58 Heparin Anti-Xa, Unfract 0.23 IU/mL (0.30-0.70) L 11/10/18 01:58 ABG pCO2 57 mmHg (35-45) H 11/09/18 14:34 ABG pO2 113 mmHg (85-104) H 11/09/18 14:34 ABG HCO3 30 mEq/L (21-27) H 11/09/18 14:34 ABG Total CO2 32 mEq/L (20-26) H 11/09/18 14:34 Sodium 134 mEq/L (136-145) L 11/14/18 03:32 Potassium 5.4 mEq/L (3.5-5.1) H 11/11/18 07:12 Chloride 94 mEq/L (98-107) L 11/14/18 03:32 Carbon Dioxide 30 mEq/L (23-29) H 11/14/18 03:32 BUN 42 mg/dL (8-23) H 11/14/18 03:32 8.75 mg/dL (0.70-1.30) H 11/14/18 03:32 Est GFR ( Amer) 7 (> 60) L 11/14/18 03:32 Est GFR (Non-Af Amer) 6 (> 60) L 11/14/18 03:32 5 (6-26) L 11/14/18 03:32 Glucose 132 mg/dL (70-105) H 11/10/18 01:58 POC Glucose 115 mg/dL (70-99) H 11/14/18 11:41 Calcium 8.1 mg/dL (8.6-10.3) L 11/12/18 02:12 109 Units/L (34-104) H 11/09/18 07:04 0.09 ng/mL (< 0.04) H* 11/09/18 13:38 B-Natriuretic Peptide 3320 pg/mL (Less than 100) H 11/09/18 07:04 3.2 g/dL (3.5-5.7) L 11/09/18 07:04 4.8 g/dL (2.4-3.5) H 11/09/18 07:04 0.7 (1.1-2.2) L 11/09/18 07:04 - Clinical Findings Intake & Output: Intake & Output 11/14/18 11/14/18 11/14/18 07:59 15:59 23:59 Intake Total 0 / 860 860 / 860 Output Total 0 / 2149 2149 / 2149 Balance 0 / -1289 -1289 / -1289 Weight 91.9 kg Consult Discharge Plan - Plan Instructions: Tramadol (By mouth), Isosorbide Mononitrate (By mouth), Atorvastatin (By mouth) Referrals: Brandon Dahl MD [Partnered Physician] - 11/23/18 1:15 pm (1 week, possible plurex cath placement ) NONE,PCP [Primary Care Provider] - Prescriptions: Atorvastatin Calcium 80 mg PO DAILY #30 tablet Isosorbide MONOnitrate (24 HR) [Imdur] 30 mg PO DAILY #30 tab.er.24h Tramadol HCl [Ultram] 50 mg PO BID PRN 2 Days #2 tablet PRN Reason: Pain
--- NOTE | 2018-11-14 23:23 | Nephrology Progress Note ---
Date of Encounter: 11/14/18 Time of Encounter: 23:21 - Assessment and Plan (1) ESRD (end stage renal disease) on dialysis Current Visit: No Status: Acute HD MWF. Renal vitamins. Renal dose medications. Renal diet. Additional dialysis and ultrafiltration as needed. Patient was seen on dialysis. (2) Anemia Current Visit: No Status: Chronic hgb stable will monitor Qualifiers: Anemia type: due to chronic kidney disease Chronic kidney disease stage: unspecified stage Qualified Code(s): N18.9 - Chronic kidney disease, unspecified; D63.1 - Anemia in chronic kidney disease (3) NSTEMI (non-ST elevated myocardial infarction) Current Visit: Yes Status: Acute Subjective Principal diagnosis: esrd Interval history: Patient was seen. He has no new complaint. ROS stable or negative. Objective - Vital Signs Vital signs: Vital Signs Temp Pulse Resp BP Pulse Ox 11/14/18 20:32 90 11/14/18 19:58 98.0 F 66 18 87 11/14/18 17:06 98.1 F 68 16 124/76 98 11/14/18 13:10 97.7 F 17 118/50 11/14/18 12:40 111/68 11/14/18 12:25 135/61 11/14/18 12:10 108/74 11/14/18 11:55 105/58 11/14/18 11:40 131/62 11/14/18 11:25 113/64 11/14/18 11:10 125/65 11/14/18 10:55 106/61 11/14/18 10:40 130/52 11/14/18 10:25 118/101 11/14/18 10:10 150/107 11/14/18 09:55 113/52 11/14/18 09:40 97.4 F L 17 156/98 11/14/18 07:21 98.0 F 69 18 99 11/14/18 03:38 97.8 F 74 16 111/73 99 11/14/18 00:02 98.1 F 68 16 116/71 96 Intake and Output 11/14/18 11/14/18 11/14/18 07:59 15:59 23:59 Intake Total 0 860 860 / 860 0 860 Output Total 2148 214 / 214 2148 Balance 0 / -1289 -1289 / -1289 0 / -1289 Intake: Oral 0 / 360 360 / 360 0 / 360 Intake, Rinseback and Flushes 500 / 500 Output: Urine 0 / 0 0 / 0 0 / 0 Total Dialysis (HD) Output 2148 / 2148 Other: Meal Breakfast Dinner Percent of Meal Consumed 50% 0% Weight 91.9 kg Blood Glucose* 101 115 78 Hemodialysis Net Fluid Removed 1649 (mL) Patient Weight 11/14/18 23:59 Weight 91.9 kg - General Appearance General appearance: Present: well-developed, well-nourished EENT: Present: ATNC Cardiology: Present: regular rate Neurologic: Present: alert and oriented x3 Psychiatric: Present: mood/affect appropriate - Lab 11/14/18 03:32 11/14/18 03:32 Consult Discharge Plan - Plan Instructions: Tramadol (By mouth), Isosorbide Mononitrate (By mouth), Atorvastatin (By mouth) Referrals: Brandon Dahl MD [Partnered Physician] - 11/23/18 1:15 pm (1 week, possible plurex cath placement ) NONE,PCP [Primary Care Provider] - Prescriptions: Atorvastatin Calcium 80 mg PO DAILY #30 tablet Isosorbide MONOnitrate (24 HR) [Imdur] 30 mg PO DAILY #30 tab.er.24h Tramadol HCl [Ultram] 50 mg PO BID PRN 2 Days #2 tablet PRN Reason: Pain
[2018-11-15] MEDS: *HR* LORazepam 1 MG TABLET PO SCH (03:26)
--- NOTE | 2018-11-15 08:03 | Internal Med Progress Note ---
Hospitalist Progress Note - Encounter Date of Encounter: 11/15/18 Time of Encounter: 08:03 - Subjective Interval History: Pt had fall last night while awaiting transfer to SNF. He stated that he did hit his head although not hard. Did have some bleeding on his arms afterward, and some ankle pain. CT head and XR ankle without abnormalities. This AM seems to be in his usual state of health. Per RN patient was briefly confused upon trying to wake him up. - Exam Vitals: Temp Pulse Resp BP Pulse Ox 97.9 F 68 14 152/67 97 11/15/18 06:57 11/15/18 06:57 11/15/18 06:57 11/15/18 06:57 11/15/18 06:57 Exam: General: NAD, good eye contact, elderly Thoracic: decent aeration, diminished R base Cardio: Normal S1 and S2, regular rate and rhythm Abdomen: Soft, nontender, nondistended Extremities: Warm, well perfused. Pitting LE edema Skin: No rashes, bruises, or ulcers. Scattered skin tears on forearms and arms Neuro: Awake, oriented to person and place. Speech fluent. Answers questions with decent comprehension - Summary of Assessment and Plan Summary of Assessment and Plan: Patient to discharge yesterday evening but experienced a fall prior to transfer. CT head and XR ankle without abnormalities. Today, has some bruising at anteroinferior ridge of ribs. No tenderness but will check CXR to r/o trauma. Plan is still to discharge today. Internal Medicine: Result - Labs CBC & Chem 7: 11/14/18 03:32 11/14/18 03:32 - ABG Interpretation ABG results: ABG ABG pH 7.33 pH Units (7.32-7.45) 11/09/18 14:34 ABG pCO2 57 mmHg (35-45) H 11/09/18 14:34 ABG pO2 113 mmHg (85-104) H 11/09/18 14:34 ABG O2 Saturation 98 % (95-98) 11/09/18 14:34 PT/INR, D-dimer PT 14.5 Seconds (9.4-12.1) H 11/10/18 01:58 - Impressions Impressions Chest X-Ray 11/13/18 08:30 IMPRESSION: Status post right thoracentesis with small residual right pleural effusion. No pneumothorax. D/ / 11/13/2018 08:57:20 Dandy He MD / [facility] Interpreting Provider: Dandy He MD Head CT 11/14/18 17:47 IMPRESSION: No acute intracranial abnormality. D/ / Poncho Ray MD / Poncho Ray MD Interpreting Provider: Poncho Ray MD Ankle X-Ray 11/14/18 17:49 IMPRESSION: No acute osseous abnormality left ankle. Peripheral vascular disease. Follow up imaging is recommended if pain persists or worsens. D/ / Fabian Hebert / Fabian Hebert Interpreting Provider: Fabian Hebert Consult Discharge Plan - Plan Instructions: Tramadol (By mouth), Isosorbide Mononitrate (By mouth), Atorvast atin (By mouth) Referrals: Brandon Dahl MD [Partnered Physician] - 11/23/18 1:15 pm (1 week, possible plurex cath placement ) NONE,PCP [Primary Care Provider] - Prescriptions: Atorvastatin Calcium 80 mg PO DAILY #30 tablet Isosorbide MONOnitrate (24 HR) [Imdur] 30 mg PO DAILY #30 tab.er.24h Tramadol HCl [Ultram] 50 mg PO BID PRN 2 Days #2 tablet PRN Reason: Pain
[2018-11-15] MEDS: Calcium Acetate 667 MG CAPSULE PO SCH ×3 (11:04→17:26)
[2018-11-15] MEDS: Insulin LISPRO 300 UNITS/3 ML VIAL SQ SCH ×3 (11:04→17:14)
--- NOTE | 2018-11-15 11:44 | Nephrology Progress Note ---
Date of Encounter: 11/15/18 Time of Encounter: 11:44 - Assessment and Plan (1) ESRD (end stage renal disease) on dialysis Status: Acute HD MWF. Renal vitamins. Renal dose medications. Renal diet. Additional dialysis and ultrafiltration as needed. 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 He has no new complaint. He was asleep Objective - Vital Signs Vital signs: Vital Signs Temp Pulse Resp BP Pulse Ox 11/15/18 06:57 97.9 F 68 14 152/67 97 11/15/18 05:12 97.9 F 94 16 103/60 100 11/14/18 20:32 90 11/14/18 19:58 98.0 F 66 18 87 11/14/18 17:06 98.1 F 68 16 124/76 98 11/14/18 13:10 97.7 F 17 118/50 11/14/18 12:40 111/68 11/14/18 12:25 135/61 11/14/18 12:10 108/74 11/14/18 11:55 105/58 Intake and Output 11/14/18 11/15/18 11/15/18 23:59 07:59 15:59 Intake Total 0 / 860 0 / 0 0 / 0 Output Total 0 / 2149 0 / 0 Balance 0 / -1289 0 / 0 0 / 0 Intake: Oral 0 / 360 0 / 0 0 / 0 Output: Urine 0 / 0 0 / 0 Other: Meal Dinner Breakfast Percent of Meal Consumed 0% 0% Weight 85.1 kg Blood Glucose* 78 71 Patient Weight 11/15/18 23:59 Weight 85.1 kg - General Appearance General appearance: Present: well-developed, well-nourished EENT: Present: ATNC Cardiology: Present: regular rate - Lab 11/14/18 03:32 11/14/18 03:32 Consult Discharge Plan - Plan Instructions: Tramadol (By mouth), Isosorbide Mononitrate (By mouth), Atorvastatin (By mouth) Referrals: Brandon Dahl MD [Partnered Physician] - 11/23/18 1:15 pm (1 week, possible plurex cath placement ) NONE,PCP [Primary Care Provider] - Prescriptions: Atorvastatin Calcium 80 mg PO DAILY #30 tablet Isosorbide MONOnitrate (24 HR) [Imdur] 30 mg PO DAILY #30 tab.er.24h
[2018-11-15 11:56] VITALS: BP 142/53
[2018-11-15] MEDS: Aspirin Enteric Coated 81 MG Tablet PO SCH (17:26)
[2018-11-15] MEDS: Venlafaxine XR (24 HR) 150 MG CAP.ER.24H PO SCH (17:26)
[2018-11-15] MEDS: Metoprolol XL (24 HR) Succ 50 MG TAB.ER.24H PO SCH (17:26)
[2018-11-15] MEDS: Isosorbide MONOnitrate (24 HR) 30 MG TAB.ER.24H PO SCH (18:23)
== END 2018-11-15 19:08 | DRG 280 ==
LOC: 2NENU 06:46 → EMEROOARM 06:46 → 2NENU 11:03 → SUATTDRO 11-11 10:50
PROVIDERS: ADMIT Internal Medicine Nephrology; ATTEND Internal Medicine

== ENCOUNTER 2018-11-18 15:56 | Inpatient (IN) ==
--- NOTE | 2018-11-18 16:17 | Emergency Department Note ---
Disposition Clinical Impression: Hypoxia, ESRD on dialysis Pneumonia Qualifiers: Pneumonia type: due to unspecified organism Laterality: unspecified laterality Lung location: unspecified part of lung Qualified Code(s): J18.9 - Pneumonia, unspecified organism Diabetes Qualifiers: Diabetes mellitus type: type 2 Diabetes mellitus long term care social worker insulin use: with long term care social worker use Diabetes mellitus complication status: with other specified complication Qualified Code(s): E11.69 - Type 2 diabetes mellitus with other specified complication Disposition: Admitted As Inpatient Condition: Fair Time of Disposition: 17:43 General Adult HPI - General Stated complaint: KAVON Time Seen by Provider: 11/18/18 16:05 - Related Data Home Medications Medication Instructions Recorded Confirmed Venlafaxine XR (24 HR) [Effexor Xr] 150 mg PO 199901/15/18 11/09/18 Trazodone HCl 100 mg PO HS PRN 01/31/18 11/09/18 Calcium Acetate [Phos-LO] 1,334 mg PO TIDWM 07/03/18 11/09/18 Nitroglycerin [Nitrostat] 0.4 mg SL Q5M PRN 07/04/18 11/09/18 Aspirin [Lo-Dose Aspirin EC] 81 mg PO 1600 08/23/18 11/09/18 Acetaminophen [Tylenol 8 Hour] 650 mg PO Q6H PRN 10/17/18 11/09/18 Guaifenesin [Mucinex] 600 mg PO BID PRN 10/17/18 11/09/18 Ipratropium/Albuterol Neb [Duoneb] 3 ml IH Q6HR PRN 10/17/18 11/09/18 Gabapentin [Neurontin] 100 mg PO TID 11/09/18 11/09/18 Metoprolol Succinate 200 mg PO 1600 11/09/18 11/09/18 Ondansetron ODT [Zofran ODT] 4 mg SL Q6HR PRN 11/09/18 11/09/18 Previous Rx's Medication Instructions Recorded Atorvastatin Calcium 80 mg PO DAILY #30 tablet 11/14/18 Isosorbide MONOnitrate (24 HR) 30 mg PO DAILY #30 tab.er.24h 11/14/18 [Imdur] Allergies Allergy/AdvReac Type Severity Reaction Status Date / Time No Known Allergies Allergy Verified 11/09/18 07:04 Past Medical History - Past Medical History Medical history: Reports: aortic aneurysm, arthritis, CHF, coronary artery disease, diabetes, dialysis, hyperlipidemia, hypertension, renal disease Surgical history: Reports: angioplasty/stent, coronary bypass (CABG), orthopedic, other, other Psychiatric history: Reports: anxiety, depression - Social History Smoking Status: Former smoker Smokeless Tobacco Status: No Alcohol use: Reports: none Drug use: Reports: none Course Vital Signs Temperature 97.4 F L 11/18/18 16:05 Pulse Rate 92 11/18/18 16:05 Respiratory Rate 17 11/18/18 16:05 Blood Pressure 139/86 11/18/18 16:05 O2 Sat by Pulse Oximetry 88 11/18/18 16:05 Temperature 97.4 F L 11/18/18 16:05 Pulse Rate 90 11/18/18 17:30 Respiratory Rate 16 11/18/18 17:30 Blood Pressure 148/90 11/18/18 17:30 O2 Sat by Pulse Oximetry 95 11/18/18 17:30 Oxygen Delivery Oxygen Delivery Nasal Cannula Medical Decision Making - Lab Data Result diagrams: 11/18/18 16:29 11/18/18 16:29 Lab Results 11/18/18 11/18/18 11/18/18 Range/Units 16:29 16:29 16:29 WBC 4.1 L (4.3-11.1) K/mcL RBC 3.36 L (4.19-5.50) M/mcL Hgb 10.1 L (12.9-16.9) g/dL Hct 32.5 L (37.5-50.1) % MCV 96.7 (83.0-100.0) fL MCH 30.1 (28.0-33.3) pg MCHC 31.1 L (31.6-35.5) g/dL RDW 15.9 H (11.5-14.5) % Plt Count 73 L (140-400) K/mcL MPV 10.5 (9.4-12.4) fL Immature Gran % 0.2 (0-4) % Seg Neutrophils % 43.7 % Lymphocytes % 24.3 % Monocytes % 10.5 % Eosinophils % 20.8 % Basophils % 0.5 % Neutrophils # 1.8 (1.6-8.9) K/mcL Lymphocytes # 1.0 (0.6-4.6) K/mcL Monocytes # 0.4 (0.0-1.3) K/mcL Eosinophils # 0.9 H (0.0-0.6) K/mcL Basophils # 0.0 (0.0-0.2) K/mcL PT 14.6 H (9.4-12.1) Seconds INR 1.3 APTT 33.7 (26.0-36.0) Seconds Sample Site ABG pH (7.32-7.45) pH Units ABG pCO2 (35-45) mmHg ABG pO2 (85-104) mmHg ABG HCO3 (21-27) mEq/L ABG Total CO2 (20-26) mEq/L ABG O2 Saturation (95-98) % ABG Base Excess (-2 to 3) mEq/L Gaudencio Test O2 Delivery Device Inspired O2 (1-15=lpm [id number]=%) Sodium 136 (136-145) mEq/L Potassium 3.7 (3.5-5.1) mEq/L Chloride 98 (98-107) mEq/L Carbon Dioxide 32 H (23-29) mEq/L BUN 15 (8-23) mg/dL Creatinine 4.09 H (0.70-1.30) mg/dL Est GFR ( Amer) 17 L (> 60) Est GFR (Non-Af Amer) 14 L (> 60) BUN/Creatinine Ratio 4 L (6-26) Glucose 78 (70-105) mg/dL Calculated Osmolality 282 (280-300) Lactic Acid (0.5-2.2) mmol/L Calcium 7.5 L (8.6-10.3) mg/dL Phosphorus 2.3 L (2.7-4.5) mg/dL Magnesium 1.9 (1.6-2.6) mg/dL Total Bilirubin 0.5 (0.3-1.0) mg/dL Direct Bilirubin 0.2 (0.0-0.2) mg/dL Indirect Bilirubin 0.3 (0.0-1.2) mg/dL AST 20 (13-39) Units/L ALT 8 (7-52) Units/L Alkaline Phosphatase 106 H (34-104) Units/L Troponin I 0.03 (< 0.04) ng/mL Serum Total Protein 7.9 (6.4-8.9) g/dL Albumin 3.2 L (3.5-5.7) g/dL Globulin 4.7 H (2.4-3.5) g/dL Albumin/Globulin Ratio 0.7 L (1.1-2.2) 11/18/18 11/18/18 Range/Units 16:29 16:30 WBC (4.3-11.1) K/mcL RBC (4.19-5.50) M/mcL Hgb (12.9-16.9) g/dL Hct (37.5-50.1) % MCV (83.0-100.0) fL MCH (28.0-33.3) pg MCHC (31.6-35.5) g/dL RDW (11.5-14.5) % Plt Count (140-400) K/mcL MPV (9.4-12.4) fL Immature Gran % (0-4) % Seg Neutrophils % % Lymphocytes % % Monocytes % % Eosinophils % % Basophils % % Neutrophils # (1.6-8.9) K/mcL Lymphocytes # (0.6-4.6) K/mcL Monocytes # (0.0-1.3) K/mcL Eosinophils # (0.0-0.6) K/mcL Basophils # (0.0-0.2) K/mcL PT (9.4-12.1) Seconds INR APTT (26.0-36.0) Seconds Sample Site R Brach ABG pH 7.37 (7.32-7.45) pH Units ABG pCO2 56 H (35-45) mmHg ABG pO2 62 L (85-104) mmHg ABG HCO3 33 H (21-27) mEq/L ABG Total CO2 34 H (20-26) mEq/L ABG O2 Saturation 90 L (95-98) % ABG Base Excess 6 H (-2 to 3) mEq/L Gaudencio Test Positive O2 Delivery Device Oxy Mask Inspired O2 6.0 (1-15=lpm [id number]=%) Sodium (136-145) mEq/L Potassium (3.5-5.1) mEq/L Chloride (98-107) mEq/L Carbon Dioxide (23-29) mEq/L BUN (8-23) mg/dL Creatinine (0.70-1.30) mg/dL Est GFR ( Amer) (> 60) Est GFR (Non-Af Amer) (> 60) BUN/Creatinine Ratio (6-26) Glucose (70-105) mg/dL Calculated Osmolality (280-300) Lactic Acid 1.0 (0.5-2.2) mmol/L Calcium (8.6-10.3) mg/dL Phosphorus (2.7-4.5) mg/dL Magnesium (1.6-2.6) mg/dL Total Bilirubin (0.3-1.0) mg/dL Direct Bilirubin (0.0-0.2) mg/dL Indirect Bilirubin (0.0-1.2) mg/dL AST (13-39) Units/L ALT (7-52) Units/L Alkaline Phosphatase (34-104) Units/L Troponin I (< 0.04) ng/mL Serum Total Protein (6.4-8.9) g/dL Albumin (3.5-5.7) g/dL Globulin (2.4-3.5) g/dL Albumin/Globulin Ratio (1.1-2.2) Attestation Statement - Attestation Attestation: I examined this patient and my medical decision-making was reviewed with the Resident Physician. I agree with the documented findings, disposition and treatment plan as described except to the extent set forth below. Patient to the ED with chief complaint of shortness of breath. Patient arrives after dialysis. He complained of dyspnea throughout his treatment. A 2 L with no improvement so he was brought here. EMS state they found him with an O2 saturation 80s. On examination he does not appear in respiratory distress. He has diminished air exchange throughout all lung pastor especially in his bases. Plan. Septic workup. Nebs and steroids. ABG. Patient has worsening infiltrates. No fever. No white count. Oxygen saturation is improved. Admitted to medicine. Chest X-Ray 11/18/18 16:07 IMPRESSION: 1. Stable moderate right and mild left pleural effusion. 2. Mild progressive bilateral pulmonary consolidation which may relate to atelectasis or superimposed pneumonia. D/ / 11/18/2018 16:30:27 Tristen Barillas MD / [facility] Interpreting Provider: Tristen Barillas MD Head CT 11/18/18 16:08 IMPRESSION: No acute intracranial abnormality. D/ / Rad Russo MD / Rad Russo MD Interpreting Provider: Rad Russo MD
[2018-11-18 16:34] LABS: ABG Base Excess 6 mEq/L (-2 to 3); ABG HCO3 33 mEq/L (21-27); ABG Oxygen Saturation 90 % (95-98); ABG PCO2 56 mmHg (35-45); ABG PH 7.37 pH Units (7.32-7.45); ABG PO2 62 mmHg (85-104); ABG TCO2 34 mEq/L (20-26)
[2018-11-18] MEDS ORDERED: *HR* FentaNYL (PF) 100 MCG/2 ML VIAL IVP ONE (16:35)
[2018-11-18 16:45] LABS: Basophils % 0.5 %; Eosinophils # 0.9 K/mcL (0.0-0.6); Eosinophils % 20.8 %; Hematocrit 32.5 % (37.5-50.1); Hemoglobin 10.1 g/dL (12.9-16.9); Immature Granulocytes % 0.2 % (0-4); Lymphocytes % 24.3 %; Mean Corpuscular HGB Conc 31.1 g/dL (31.6-35.5); Mean Corpuscular Hemoglobin 30.1 pg (28.0-33.3); Mean Corpuscular Volume 96.7 fL (83.0-100.0); Mean Platelet Volume 10.5 fL (9.4-12.4); Monocytes # 0.4 K/mcL (0.0-1.3); Monocytes % 10.5 %; Neutrophils # 1.8 K/mcL (1.6-8.9); Red Blood Count 3.36 M/mcL (4.19-5.50); Red Cell Distribution Width 15.9 % (11.5-14.5); Segmented Neutrophils % 43.7 %; White Blood Count 4.1 K/mcL (4.3-11.1)
[2018-11-18 16:46] LABS: Platelet Count 73 K/mcL (140-400)
[2018-11-18 16:53] LABS: INR 1.3; Prothrombin Time 14.6 Seconds (9.4-12.1)
[2018-11-18 16:56] LABS: Activated Partial Thrombo Time 33.7 Seconds (26.0-36.0)
[2018-11-18] MEDS ORDERED: Piperacillin/Tazobactam 3.375 GM in 0.9 % Sodium Chloride Mini Bag 100 ML IVPB ONE (16:56)
[2018-11-18 17:07] LABS: Albumin 3.2 g/dL (3.5-5.7); Albumin/Globulin Ratio 0.7 (1.1-2.2); Bilirubin,Direct 0.2 mg/dL (0.0-0.2); Bilirubin,Indirect 0.3 mg/dL (0.0-1.2); Bilirubin,Total 0.5 mg/dL (0.3-1.0); Calcium 7.5 mg/dL (8.6-10.3); Globulin 4.7 g/dL (2.4-3.5); Magnesium 1.9 mg/dL (1.6-2.6); Phosphorous 2.3 mg/dL (2.7-4.5); Potassium 3.7 mEq/L (3.5-5.1); Total Protein 7.9 g/dL (6.4-8.9); Troponin I 0.03 ng/mL (< 0.04)
--- NOTE | 2018-11-18 17:08 | Emergency Department Note ---
Disposition Clinical Impression: Hypoxia, ESRD on dialysis Pneumonia Qualifiers: Pneumonia type: due to unspecified organism Laterality: unspecified laterality Lung location: unspecified part of lung Qualified Code(s): J18.9 - Pneumonia, unspecified organism Diabetes Qualifiers: Diabetes mellitus type: type 2 Diabetes mellitus [facility] insulin use: with [facility] use Diabetes mellitus complication status: with other specified complication Qualified Code(s): E11.69 - Type 2 diabetes mellitus with other specified complication Disposition: Admitted As Inpatient Condition: Fair Time of Disposition: 17:26 SOB HPI - General Chief Complaint: ED Shortness of Breath/Dyspnea Stated Complaint: KAVON Time Seen by Provider: 11/18/18 16:05 Source: EMS Mode of arrival: EMS Limitations: physical limitation Nursing Notes Reviewed: Yes Vital Signs Reviewed: Yes - History of Present Illness 78 yo male with past medical history of diabetes and end-stage renal disease on dialysis Wednesday presents the emergency department from dialysis with acute onset shortness of breath. Patient was just released from the hospital 2 days ago. He has not had any fevers or chills. He does seem altered per report from the dialysis center. He does have some acute chest pain that started with the shortness of breath. He denies abdominal pain, nausea and vomiting, diarrhea. He does not make any urine. He had next her liter of fluid dialyzed off him today. When EMS arrived the patient was 80% on room air, and he increased to 85% on 6 L. - Related Data Home Medications Medication Instructions Recorded Confirmed Venlafaxine XR (24 HR) [Effexor Xr] 150 mg PO 199901/15/18 11/09/18 Trazodone HCl 100 mg PO HS PRN 01/31/18 11/09/18 Calcium Acetate [Phos-LO] 1,334 mg PO TIDWM 07/03/18 11/09/18 Nitroglycerin [Nitrostat] 0.4 mg SL Q5M PRN 07/04/18 11/09/18 Aspirin [Lo-Dose Aspirin EC] 81 mg PO 1600 08/23/18 11/09/18 Acetaminophen [Tylenol 8 Hour] 650 mg PO Q6H PRN 10/17/18 11/09/18 Guaifenesin [Mucinex] 600 mg PO BID PRN 10/17/18 11/09/18 Ipratropium/Albuterol Neb [Duoneb] 3 ml IH Q6HR PRN 10/17/18 11/09/18 Gabapentin [Neurontin] 100 mg PO TID 11/09/18 11/09/18 Metoprolol Succinate 200 mg PO 1600 11/09/18 11/09/18 Ondansetron ODT [Zofran ODT] 4 mg SL Q6HR PRN 11/09/18 11/09/18 Previous Rx's Medication Instructions Recorded Atorvastatin Calcium 80 mg PO DAILY #30 tablet 11/14/18 Isosorbide MONOnitrate (24 HR) 30 mg PO DAILY #30 tab.er.24h 11/14/18 [Imdur] Allergies Allergy/AdvReac Type Severity Reaction Status Date / Time No Known Allergies Allergy Verified 11/09/18 07:04 All systems ED: reviewed and negative except as stated. Review of Systems: As Per HPI Constitutional: Denies: fever, weakness Cardiovascular: Reports: chest pain, dyspnea on exertion. Denies: palpitations, orthopnea, edema Respiratory: Reports: dyspnea. Denies: cough, wheezes, hemoptysis Gastrointestinal: Denies: abdominal pain, nausea, vomiting Musculoskeletal: Reports: back pain. Denies: neck pain Integumentary: Denies: rash Neurological: Denies: headache Endocrine: Denies: fatigue Past Medical History - Past Medical History Attestation: Yes The following information was validated with the patient. Source: patient Medical history: Reports: aortic aneurysm, arthritis, CHF, coronary artery disease, diabetes, dialysis, hyperlipidemia, hypertension, renal disease Surgical history: Reports: angioplasty/stent, coronary bypass (CABG), orthopedic, other, other Psychiatric history: Reports: anxiety, depression - Social History Smoking Status: Former smoker Smokeless Tobacco Status: No Alcohol use: Reports: none Drug use: Reports: none Physical Exam - General Limitations: physical limitation General appearance: alert - Head Head exam: atraumatic, normocephalic - Eye Eye exam: Present: normal appearance, EOMI - ENT ENT exam: normal exam, normal oropharynx - Neck Neck exam: Present: normal inspection. Absent: tenderness, lymphadenopathy - Chest Chest inspection: Present: normal inspection. Absent: tenderness, rash - Respiratory Respiratory exam: Present: other (Diminished breath sounds in all lung pastor) - Cardiovascular Cardiovascular exam: Present: regular rate, normal rhythm - Abdominal Exam Abdominal exam: Present: soft, Non-Tender. Absent: distention, guarding, rebound, rigidity - Extremities Exam Extremities exam: Present: normal inspection. Absent: tenderness, pedal edema - Neurological Exam Neurological exam: Present: alert, oriented X3, other (Speech is slurred but patient is able to answer questions appropriately) - Psychiatric Psychiatric exam: Present: normal affect, normal mood - Skin Skin exam: Present: warm, dry, intact Course Vital Signs Temperature 97.4 F L 11/18/18 16:05 Pulse Rate 92 11/18/18 16:05 Respiratory Rate 17 11/18/18 16:05 Blood Pressure 139/86 11/18/18 16:05 O2 Sat by Pulse Oximetry 88 11/18/18 16:05 Temperature 97.4 F L 11/18/18 16:05 Pulse Rate 91 11/18/18 16:47 Respiratory Rate 16 11/18/18 16:47 Blood Pressure 145/83 11/18/18 16:47 O2 Sat by Pulse Oximetry 98 11/18/18 16:47 Oxygen Delivery Oxygen Delivery Nasal Cannula Shortness of Breath/Dyspnea - [facility] Narrative Medical decision making narrative: Patient presents from dialysis with the complaint of shortness of breath and hypoxia. We will do a septic workup on this patient. Patient will not be given fluids as he is a dialysis patient. 1700 - chest x-ray shows signs of new pneumonia. White count is low at 4. Lactic acid is not elevated and all other lab work is at the patient's baseline. Awaiting BMP at this time. EKG did not show any acute changes. Patient will be started on vanc and Zosyn for healthcare acquired pneumonia. 1725 - patient's BMP is at his baseline after dialysis. Patient has been accepted to the hospitalist for treatment of his pneumonia and hypoxia. He is satting 98% on a nonrebreather at this time and is in no acute respiratory distress. - Medical Records Medical records reviewed: Yes I reviewed the patient's medical records. - Lab Data Lab results reviewed: Yes I reviewed the patient's lab results. Result diagrams: 11/18/18 16:29 11/18/18 16:29 Lab Results 11/18/18 11/18/18 11/18/18 Range/Units 16:29 16:29 16:29 WBC 4.1 L (4.3-11.1) K/mcL RBC 3.36 L (4.19-5.50) M/mcL Hgb 10.1 L (12.9-16.9) g/dL Hct 32.5 L (37.5-50.1) % MCV 96.7 (83.0-100.0) fL MCH 30.1 (28.0-33.3) pg MCHC 31.1 L (31.6-35.5) g/dL RDW 15.9 H (11.5-14.5) % Plt Count 73 L (140-400) K/mcL MPV 10.5 (9.4-12.4) fL Immature Gran % 0.2 (0-4) % Seg Neutrophils % 43.7 % Lymphocytes % 24.3 % Monocytes % 10.5 % Eosinophils % 20.8 % Basophils % 0.5 % Neutrophils # 1.8 (1.6-8.9) K/mcL Lymphocytes # 1.0 (0.6-4.6) K/mcL Monocytes # 0.4 (0.0-1.3) K/mcL Eosinophils # 0.9 H (0.0-0.6) K/mcL Basophils # 0.0 (0.0-0.2) K/mcL PT 14.6 H (9.4-12.1) Seconds INR 1.3 APTT 33.7 (26.0-36.0) Seconds Sample Site ABG pH (7.32-7.45) pH Units ABG pCO2 (35-45) mmHg ABG pO2 (85-104) mmHg ABG HCO3 (21-27) mEq/L ABG Total CO2 (20-26) mEq/L ABG O2 Saturation (95-98) % ABG Base Excess (-2 to 3) mEq/L Gaudencio Test O2 Delivery Device Inspired O2 (1-15=lpm [id number]=%) Sodium 136 (136-145) mEq/L Potassium 3.7 (3.5-5.1) mEq/L Chloride 98 (98-107) mEq/L Carbon Dioxide 32 H (23-29) mEq/L BUN 15 (8-23) mg/dL Creatinine 4.09 H (0.70-1.30) mg/dL Est GFR ( Amer) 17 L (> 60) Est GFR (Non-Af Amer) 14 L (> 60) BUN/Creatinine Ratio 4 L (6-26) Glucose 78 (70-105) mg/dL Calculated Osmolality 282 (280-300) Lactic Acid (0.5-2.2) mmol/L Calcium 7.5 L (8.6-10.3) mg/dL Phosphorus 2.3 L (2.7-4.5) mg/dL Magnesium 1.9 (1.6-2.6) mg/dL Total Bilirubin 0.5 (0.3-1.0) mg/dL Direct Bilirubin 0.2 (0.0-0.2) mg/dL Indirect Bilirubin 0.3 (0.0-1.2) mg/dL AST 20 (13-39) Units/L ALT 8 (7-52) Units/L Alkaline Phosphatase 106 H (34-104) Units/L Troponin I 0.03 (< 0.04) ng/mL Serum Total Protein 7.9 (6.4-8.9) g/dL Albumin 3.2 L (3.5-5.7) g/dL Globulin 4.7 H (2.4-3.5) g/dL Albumin/Globulin Ratio 0.7 L (1.1-2.2) 11/18/18 11/18/18 Range/Units 16:29 16:30 WBC (4.3-11.1) K/mcL RBC (4.19-5.50) M/mcL Hgb (12.9-16.9) g/dL Hct (37.5-50.1) % MCV (83.0-100.0) fL MCH (28.0-33.3) pg MCHC (31.6-35.5) g/dL RDW (11.5-14.5) % Plt Count (140-400) K/mcL MPV (9.4-12.4) fL Immature Gran % (0-4) % Seg Neutrophils % % Lymphocytes % % Monocytes % % Eosinophils % % Basophils % % Neutrophils # (1.6-8.9) K/mcL Lymphocytes # (0.6-4.6) K/mcL Monocytes # (0.0-1.3) K/mcL Eosinophils # (0.0-0.6) K/mcL Basophils # (0.0-0.2) K/mcL PT (9.4-12.1) Seconds INR APTT (26.0-36.0) Seconds Sample Site R Brach ABG pH 7.37 (7.32-7.45) pH Units ABG pCO2 56 H (35-45) mmHg ABG pO2 62 L (85-104) mmHg ABG HCO3 33 H (21-27) mEq/L ABG Total CO2 34 H (20-26) mEq/L ABG O2 Saturation 90 L (95-98) % ABG Base Excess 6 H (-2 to 3) mEq/L Gaudencio Test Positive O2 Delivery Device Oxy Mask Inspired O2 6.0 (1-15=lpm [id number]=%) Sodium (136-145) mEq/L Potassium (3.5-5.1) mEq/L Chloride (98-107) mEq/L Carbon Dioxide (23-29) mEq/L BUN (8-23) mg/dL Creatinine (0.70-1.30) mg/dL Est GFR ( Amer) (> 60) Est GFR (Non-Af Amer) (> 60) BUN/Creatinine Ratio (6-26) Glucose (70-105) mg/dL Calculated Osmolality (280-300) Lactic Acid 1.0 (0.5-2.2) mmol/L Calcium (8.6-10.3) mg/dL Phosphorus (2.7-4.5) mg/dL Magnesium (1.6-2.6) mg/dL Total Bilirubin (0.3-1.0) mg/dL Direct Bilirubin (0.0-0.2) mg/dL Indirect Bilirubin (0.0-1.2) mg/dL AST (13-39) Units/L ALT (7-52) Units/L Alkaline Phosphatase (34-104) Units/L Troponin I (< 0.04) ng/mL Serum Total Protein (6.4-8.9) g/dL Albumin (3.5-5.7) g/dL Globulin (2.4-3.5) g/dL Albumin/Globulin Ratio (1.1-2.2) - Radiology Data Radiology results reviewed: Yes I reviewed the patient's radiology results. - EKG Data EKG attestation: Yes I reviewed and interpreted this EKG. EKG results narrative: EKG obtained at 16:06 on 11/18/2018 Heart rate 91 bpm, IL interval 163, QRS duration 116, QT 379, QTC 467 Sinus rhythm with T-wave inversions in the anterior and lateral leads. No acute ST segment elevations. Unchanged when compared to previous EKG dated 11/09/2018
[2018-11-18] MEDS ORDERED: Naloxone 0.4 MG/ML INJ IVP PRN (17:42)
[2018-11-18] MEDS ORDERED: Ondansetron 4 MG/2 ML VIAL IVP PRN (17:42)
--- NOTE | 2018-11-18 18:07 | Internal Med History&Physical ---
Date of Encounter: 11/18/18 Time of Encounter: 17:54 Internal Medicine - H&P: HPI Chief complaint: SOB Admitted From: Emergency Dept History of present illness: Ike Esquivel is a 78 M w hx ESRD on HD MWF, HFrEF 45%, CAD s/p CABG, COPD on 2L, HTN, DM2, recurrent pleural effusion, who p/w shortness of breath. Pt recently discharged from hospital 2 days ago. Pt was at HD today and complained of SOB. Per report, his sats were in the low 80s and only recovered to mid 80s on 6L, and thus EMS was called. Patient states that he feels SOB and chest heaviness as if he's filling back up with fluid, referencing his previous pleural effusions. He says he feels weak and wants to get all the way better and be able to walk out of the hospital this time. Denies fever. Says he had fluid removed during HD today and that his legs are not more swollen than his usual. In the ED, pt vitals unremarkable except O2 88% on 5L, eventually recovered w oxymask. No fever or leukocytosis, but CXR showing b/l infiltrates. Blood cultures drawn, given empiric vanc/zosyn, and admitted. Past medical, surgical, social, and family histories reviewed and updated as below. Past Med Surg Social Fam HX - Past Medical History Medical history: aortic aneurysm, arthritis, CHF, coronary artery disease, diabetes, dialysis, hyperlipidemia, hypertension, renal disease Additional medical history: BLADDER NECK CONTRACTURE, SQUAMOUS CELL CANCER. 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), triple bypass - Social History Smoking Status: Former smoker Smokeless Tobacco Status: No Alcohol use: none Drug use: none - Family History Father Adopted: No Family Member Ethnicity: Non- Living Status: Hx Family Cardiac Disorders: Yes (NM) Mother Adopted: No Family Member Ethnicity: Non- Living Status: Hx Family Cancer: Yes Brother Family Member Ethnicity: Non- Living Status: Still Living Sister Adopted: No Family Member Ethnicity: Non- Living Status: Still Living Hx Family Cardiac Disorders: Yes Hx Family Respiratory Disorders: No Hx Family Cancer: Yes Hx Family GI Disorders: No Hx Family Endocrine Disorder: Yes Hx Family Neuromuscular Disorders: No Hx Family Neurologic Disorders: No Hx Family HEENT Disorders: No Hx Family Autoimmune Disorders: No Internal Medicine - H&P: Meds Venlafaxine XR (24 HR) [Effexor Xr] 150 mg PO 2000 01/15/18 [History] Trazodone HCl 100 mg PO HS PRN 01/31/18 [History] Calcium Acetate [Phos-LO] 1,334 mg PO TIDWM 07/03/18 [History] Nitroglycerin [Nitrostat] 0.4 mg SL Q5M PRN 07/04/18 [History] Aspirin [Lo-Dose Aspirin EC] 81 mg PO 1600 08/23/18 [History] Acetaminophen [Tylenol 8 Hour] 650 mg PO Q6H PRN 10/17/18 [History] Guaifenesin [Mucinex] 600 mg PO BID PRN 10/17/18 [History] Ipratropium/Albuterol Neb [Duoneb] 3 ml IH Q6HR PRN 10/17/18 [History] Gabapentin [Neurontin] 100 mg PO TID 11/09/18 [History] Metoprolol Succinate 200 mg PO 1600 11/09/18 [History] Ondansetron ODT [Zofran ODT] 4 mg SL Q6HR PRN 11/09/18 [History] Atorvastatin Calcium 80 mg PO DAILY #30 tablet 11/14/18 [Rx] Isosorbide MONOnitrate (24 HR) [Imdur] 30 mg PO DAILY #30 tab.er.24h 11/14/18 [Rx] Allergy/AdvReac Type Severity Reaction Status Date / Time No Known Allergies Allergy Verified 11/09/18 07:04 All Systems PM: A 10-system review of systems was performed and is negative for pertinent findings except as documented above in the HPI. - Constitutional Vitals: Temp Pulse Resp BP Pulse Ox 97.4 F L 90 16 148/90 95 11/18/18 16:05 11/18/18 17:30 11/18/18 17:30 11/18/18 17:30 11/18/18 17:30 Exam: General: NAD, good eye contact, well appearing at time of my exam, normal work of breathing Head: Atraumatic, normocephalic. Face symmetric Eyes: EOMI, sclerae anicteric ENT: Mucous membranes moist. Normal oral mucosa and dentition. Trachea midline. Thoracic: No visible chest wall deformities. Does have blunted R basilar breath sounds, bilateral coarse breath sounds in lower lobes Cardio: Normal S1 and S2, regular rate and rhythm Abdomen: Soft, nontender, nondistended. Bowel sounds present. No rebound Extremities: Warm, well perfused. DP pulses 2+ b/l. No clubbing, cyanosis. Pitti ng LE edema Skin: Scattered lacerations/abrasions on arms, bruising R arm Neuro: Awake, fully oriented. Good memory, concentration, attention. Speech fluent. CN II-XII grossly intact. Strength 5/5 in b/l UE and LE Internal Med - H&P Results - Labs CBC & Chem 7: 11/18/18 16:29 11/18/18 16:29 Labs: Short CBC 11/18/18 Range/Units 16:29 WBC 4.1 L (4.3-11.1) K/mcL Hgb 10.1 L (12.9-16.9) g/dL Hct 32.5 L (37.5-50.1) % Plt Count 73 L (140-400) K/mcL Neutrophils # 1.8 (1.6-8.9) K/mcL BMP 11/18/18 16:29 Sodium 136 Potassium 3.7 Chloride 98 Carbon Dioxide 32 H BUN 15 Creatinine 4.09 H Glucose 78 Calcium 7.5 L Cardiac Enzymes 11/18/18 Range/Units 16:29 Troponin I 0.03 (< 0.04) ng/mL Liver Function 11/18/18 Range/Units 16:29 Total Bilirubin 0.5 (0.3-1.0) mg/dL Direct Bilirubin 0.2 (0.0-0.2) mg/dL AST 20 (13-39) Units/L ALT 8 (7-52) Units/L Alkaline Phosphatase 106 H (34-104) Units/L Albumin 3.2 L (3.5-5.7) g/dL - ABG Interpretation ABG results: 11/18/18 16:30 ABG pH 7.37 ABG pCO2 56 H ABG pO2 62 L ABG HCO3 33 H ABG Total CO2 34 H ABG O2 Saturation 90 L ABG Base Excess 6 H - Impressions ITS Impressions Chest X-Ray 11/18/18 16:07 IMPRESSION: 1. Stable moderate right and mild left pleural effusion. 2. Mild progressive bilateral pulmonary consolidation which may relate to atelectasis or superimposed pneumonia. D/ / 11/18/2018 16:30:27 Tristen Barillas MD / earnold Interpreting Provider: Tristen Barillas MD Head CT 11/18/18 16:08 IMPRESSION: No acute intracranial abnormality. D/ / Rad Russo MD / Rad Russo MD Interpreting Provider: Rad Russo MD - Summary of Assessment and Plan Summary of Assessment and Plan: Ike Esquivel is a 78 M w hx ESRD on HD MWF, HFrEF 45%, CAD s/p CABG, COPD on 2L, HTN, DM2, recurrent pleural effusion, who p/w SOB, hypoxia, CXR showing bibasilar infiltrates and recurrent R>L pleural effusions, concerning for pneumonia causing acute on chronic hypoxic respiratory failure. Hospital acquired pneumonia: pt afebrile and no leukocytosis but significantly SOB, CXR showing infiltrates - empiric vanc/zosyn - BCx x2 pending - mrsa nasal swab - CT chest - pulm consult - swallow study Bilateral R>L pleural effusions: s/p a few thoracenteses in last 2 months, transudative, Pulm considering pleurX catheter - Pulm consult for pleurx - volume management per HD Chronic HFrEF 45%: - volume management per HD ESRD on HD MWF: - Neph consulted CAD s/p CABG: ASA, plavix, lipitor 20, toprol 200 HTN: toprol 200, HD DM2: controlled, monitor PPx: sqh FEN: renal ADA, no MIVF Lines: PIV Consults: Neph, Pulm Code: Full Dispo: patient requires inpatient eval and management at this time. Anticipate 2-3 days. Will return to SNF.
[2018-11-18] MEDS ORDERED: Vancomycin (wt based) 1,000 MG VIAL IVPB SCH (19:00)
[2018-11-18] MEDS: Acetaminophen 325 MG TABLET PO PRN (21:59)
[2018-11-18] MEDS: *HR* Heparin 5,000 UNIT/ML VIAL SQ SCH (21:59)
[2018-11-18] MEDS ORDERED: traMADol 50 MG TABLET PO PRN (22:24)
[2018-11-18] MEDS: traZODone 50 MG TABLET PO PRN (23:05)
[2018-11-19 05:07] LABS: Mean Corpuscular Volume 98.2 fL (83.0-100.0)
[2018-11-19 05:08] LABS: Hematocrit 32.4 % (37.5-50.1); Hemoglobin 9.9 g/dL (12.9-16.9); Immature Platelets 6.4 % (1.1-6.1); Mean Corpuscular HGB Conc 30.6 g/dL (31.6-35.5); Mean Platelet Volume 10.9 fL (9.4-12.4); Red Blood Count 3.3 M/mcL (4.19-5.50); White Blood Count 4.2 K/mcL (4.3-11.1)
[2018-11-19 05:23] LABS: Calcium 7.5 mg/dL (8.6-10.3); Potassium 4.2 mEq/L (3.5-5.1)
[2018-11-19] MEDS: *HR* Heparin 5,000 UNIT/ML VIAL SQ SCH ×3 (05:40→22:59)
[2018-11-19] MEDS: Acetaminophen 325 MG TABLET PO PRN ×2 (05:41→22:59)
[2018-11-19] MEDS: Piperacillin/Tazobactam 3.375 GM in 0.9 % Sodium Chloride Mini Bag 100 ML IVPB SCH ×2 (05:41→19:21)
--- NOTE | 2018-11-19 06:40 | Pulmonology Consult Note ---
Date of Encounter: 11/19/18 Time of Encounter: 06:38 Assessment and Plan (1) Acute on chronic respiratory failure with hypoxemia Current Visit: No Status: Acute Currently with acceptable saturation on 5 L oxygen mask patient outside of being tearful appears otherwise stable from a respiratory status would continue supplemental oxygen to keep saturation greater than 90% (2) Pneumonia Current Visit: Yes Status: Acute I believe that this is a best unequivocal diagnosis recommend sending pro calcitonin as white count is not elevated and the patient is afebrile if pro calcitonin normal cultures remained negative through the course the day and no other clinical features of pneumonia I suspect that antibiotics can be stopped Qualifiers: Lung location: unspecified part of lung Qualified Code(s): J18.9 - Pneumonia, unspecified organism (3) Pleural effusion Current Visit: No Status: Acute This is a transudative effusion secondary to hydrostatic pulmonary edema from CHF ESRD and liver cirrhosis he will benefit from placement of Pleurx catheter which for ease would recommend monitoring over the weekend and Dr. Dahl to place this early on Wednesday. Can consider therapeutic thoracentesis if the symptoms worsen significantly (4) ESRD (end stage renal disease) on dialysis Current Visit: No Status: Acute He will benefit from volume removal with dialysis defer to nephrology (5) Delirium due to another medical condition, acute, hyperactive Current Visit: Yes Status: Acute There is onset of delirium likely secondary to change in home status disruption in sleep wake cycle and possibly sepsis -focus on mormon of sleep-wake cycle. avoid sensory deprivation, and avoid [employer] depressant medications as able. Thank you for this consultation pulmonary will continue to follow History of Present Illness Consult date: 11/19/18 Requesting physician: Hans Lazar Reason for consult: pleural effusion Chief complaint: Difficulty in Breathing History of present illness: The patient is a 78-year-old gentleman with past medical history of CHF ESRD liver cirrhosis with recurrent pleural effusion he also has chronic respiratory failure from the same reason. He presented for increasing shortness of breath and hypoxia CT scan of the chest was performed in the ED which was notable for large right-sided pleural effusion which had reaccumulated patient undergone thoracentesis about 2 weeks ago there is also concern for pneumonia on chest x- ray patient had not cultures obtained and was started on broad-spectrum antibiotics for a was consulted for further evaluation of his the recurrent pleural effusion patient has undergone what appears to be at least 3 thoracentesis in the past which has been notable for a transudate of effusions there is a discussion in the outpatient setting of placement of Pleurx catheter. In speaking with the patient today he is very tearful stating that "my dad and they want limiting go and see the viewing" and that he is "trapped" he says that he is short of breath and just wants to leave the hospital go see his father because "he and his had been for 53 years" he denies any nausea vomiting chest pain diarrhea hemoptysis or LE swelling. I attempted to corroborate disorder with the nursing staff and she adamantly denied that this is the case have been in contact with the patient's spouse and it appears patient has been increasingly confused over the evening and in fact his father did not pass away Past Med Surg Social Fam HX - Past Medical History Medical history: aortic aneurysm, arthritis, CHF, coronary artery disease, diabetes, dialysis, hyperlipidemia, hypertension, renal disease Additional medical history: BLADDER NECK CONTRACTURE, SQUAMOUS CELL CANCER. 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), triple bypass - Social History Smoking Status: Former smoker Smokeless Tobacco Status: No Alcohol use: none Drug use: none - Family History Father Adopted: No Family Member Ethnicity: Non- Living Status: Hx Family Cardiac Disorders: Yes ([place]) Mother Adopted: No Family Member Ethnicity: Non- Living Status: Hx Family Cancer: Yes Brother Family Member Ethnicity: Non- Living Status: Still Living Sister Adopted: No Family Member Ethnicity: Non- Living Status: Still Living Hx Family Cardiac Disorders: Yes Hx Family Respiratory Disorders: No Hx Family Cancer: Yes Hx Family GI Disorders: No Hx Family Endocrine Disorder: Yes Hx Family Neuromuscular Disorders: No Hx Family Neurologic Disorders: No Hx Family HEENT Disorders: No Hx Family Autoimmune Disorders: No Medications and Allergies Venlafaxine XR (24 HR) [Effexor Xr] 150 mg PO 199901/15/18 [History] Trazodone HCl 100 mg PO HS PRN 01/31/18 [History] Calcium Acetate [Phos-LO] 1,334 mg PO TIDWM 07/03/18 [History] Nitroglycerin [Nitrostat] 0.4 mg SL Q5M PRN 07/04/18 [History] Aspirin [Lo-Dose Aspirin EC] 81 mg PO 1600 08/23/18 [History] Acetaminophen [Tylenol 8 Hour] 650 mg PO Q6H PRN 10/17/18 [History] Guaifenesin [Mucinex] 600 mg PO BID PRN 10/17/18 [History] Ipratropium/Albuterol Neb [Duoneb] 3 ml IH Q6HR PRN 10/17/18 [History] Gabapentin [Neurontin] 100 mg PO TID 11/09/18 [History] Metoprolol Succinate 200 mg PO 1600 11/09/18 [History] Ondansetron ODT [Zofran ODT] 4 mg SL Q6HR PRN 11/09/18 [History] Atorvastatin Calcium 80 mg PO DAILY@199911/18/18 [History] Isosorbide MONOnitrate (24 HR) [Imdur] 30 mg PO DAILY@1600 11/18/18 [History] Tramadol HCl [Ultram] 50 mg PO BID PRN 11/18/18 [History] Allergy/AdvReac Type Severity Reaction Status Date / Time No Known Allergies Allergy Verified 11/09/18 07:04 All Systems: The remainder of the systems were reviewed and are negative Physical Examination Vital Signs: Vital Signs, Last 4 Hours Temp Pulse Resp BP Pulse Ox 11/19/18 06:35 97.6 F 72 18 153/83 97 11/19/18 03:32 96.3 F L 70 18 127/80 99 General appearance: appears uncomfortable Eyes: nonicteric Effort: normal Auscultation: left: rales, right: diminished breath sounds Cardiovascular: regular rate and rhythm Gastrointestinal: normoactive bowel sounds, soft, non-tender Integumentary: normal Extremities: edema Musculoskeletal: no deformities non-focal exam tearful Results - Laboratory Findings CBC and BMP: 11/19/18 04:13 11/19/18 04:13 ABG ABG pH 7.37 pH Units (7.32-7.45) 11/18/18 16:30 ABG pCO2 56 mmHg (35-45) H 11/18/18 16:30 ABG pO2 62 mmHg (85-104) L 11/18/18 16:30 ABG O2 Saturation 90 % (95-98) L 11/18/18 16:30 PT/INR, D-dimer PT 14.6 Seconds (9.4-12.1) H 11/18/18 16:29 Abnormal lab findings: Abnormal lab results WBC 4.2 K/mcL (4.3-11.1) L 11/19/18 04:13 RBC 3.30 M/mcL (4.19-5.50) L 11/19/18 04:13 Hgb 9.9 g/dL (12.9-16.9) L 11/19/18 04:13 Hct 32.4 % (37.5-50.1) L 11/19/18 04:13 MCHC 30.6 g/dL (31.6-35.5) L 11/19/18 04:13 RDW 16.0 % (11.5-14.5) H 11/19/18 04:13 Plt Count 73 K/mcL (140-400) L 11/19/18 04:13 0.9 K/mcL (0.0-0.6) H 11/18/18 16:29 Immature Plt Fraction 6.4 % (1.1-6.1) H 11/19/18 04:13 PT 14.6 Seconds (9.4-12.1) H 11/18/18 16:29 ABG pCO2 56 mmHg (35-45) H 11/18/18 16:30 ABG pO2 62 mmHg (85-104) L 11/18/18 16:30 ABG HCO3 33 mEq/L (21-27) H 11/18/18 16:30 ABG Total CO2 34 mEq/L (20-26) H 11/18/18 16:30 ABG O2 Saturation 90 % (95-98) L 11/18/18 16:30 ABG Base Excess 6 mEq/L (-2 to 3) H 11/18/18 16:30 Sodium 135 mEq/L (136-145) L 11/19/18 04:13 Carbon Dioxide 31 mEq/L (23-29) H 11/19/18 04:13 4.73 mg/dL (0.70-1.30) H 11/19/18 04:13 Est GFR ( Amer) 15 (> 60) L 11/19/18 04:13 Est GFR (Non-Af Amer) 12 (> 60) L 11/19/18 04:13 4 (6-26) L 11/19/18 04:13 Glucose 112 mg/dL (70-105) H 11/19/18 04:13 Calcium 7.5 mg/dL (8.6-10.3) L 11/19/18 04:13 Phosphorus 2.3 mg/dL (2.7-4.5) L 11/18/18 16:29 106 Units/L (34-104) H 11/18/18 16:29 B-Natriuretic Peptide 1967 pg/mL (Less than 100) H 11/19/18 04:13 3.2 g/dL (3.5-5.7) L 11/18/18 16:29 4.7 g/dL (2.4-3.5) H 11/18/18 16:29 0.7 (1.1-2.2) L 11/18/18 16:29 - Microbiology Findings Microbiology Findings: Microbiology, Last 48 Hours 11/18/18 16:29 Blood Culture - Preliminary Peripheral Venipuncture Culture is incubating and being continuously monitored for growth. Final report to follow. 11/18/18 16:29 Blood Culture - Preliminary Peripheral Venipuncture Culture is incubating and being continuously monitored for growth. Final report to follow. - Diagnostic Findings Chest x-ray: report reviewed, image reviewed CT scan - chest: report reviewed, image reviewed - Clinical Findings Intake & Output: Intake & Output 11/18/18 11/18/18 11/19/18 15:59 23:59 07:59 Intake Total 340 / 340 Balance 340 / 340 Weight 95.5 kg Consult Discharge Plan - Plan Referrals: David Strange DO [Primary Care Provider] -
--- NOTE | 2018-11-19 07:31 | Internal Med Progress Note ---
Hospitalist Progress Note - Encounter Date of Encounter: 11/19/18 Time of Encounter: 07:31 - Subjective Interval History: Pt slept decently overnight but this AM is having some intermittent confusion/delirium. Respiratory status is improving from yesterday; his pulse ox probe is poorly registering at times, and this AM upon entering the room pt lying on left side satting mid 60s% with forehead probe w good waveform and pt confused, and improved to ~80% when O2 increased to 10L and pt asked to take deep breaths. However, upon getting team to help reposition patient and sitting him up, his O2 went to 100% and he weaned down to 5L without difficulty. Still slightly confused but improving. - Exam Vitals: Temp Pulse Resp BP Pulse Ox 97.6 F 72 18 153/83 97 11/19/18 06:35 11/19/18 06:35 11/19/18 06:35 11/19/18 06:35 11/19/18 06:35 Exam: General: NAD, good eye contact, normal work of breathing, confused and crying Thoracic: Does have blunted R basilar breath sounds, bilateral coarse breath sounds in lower lobes Cardio: Normal S1 and S2, regular rate and rhythm Abdomen: Soft, nontender Extremities: Warm, well perfused. DP pulses 2+ b/l. Pitting LE edema Skin: Scattered lacerations/abrasions on arms, bruising R arm Neuro: Awake, oriented to person. Poor memory, concentration. Speech fluent. CN II-XII grossly intact. Strength 5/5 in b/l UE and LE - Summary of Assessment and Plan Summary of Assessment and Plan: Ike Esquivel is a 78 M w hx ESRD on HD MWF, HFrEF 45%, CAD s/p CABG, COPD on 2L, HTN, DM2, recurrent pleural effusion, who p/w SOB, confusion, hypoxia, CXR showing bibasilar infiltrates and recurrent R>L pleural effusions, concerning for possible pneumonia causing acute on chronic hypoxic respiratory failure as well as acute metabolic encephalopathy. Hospital acquired pneumonia: pt afebrile and no leukocytosis but significantly SOB, CXR showing infiltrates but CT stable from prior. - d/c vanc 2/2 negative mrsa swab - Pulm c/s, appreciate thought that PNA is equivocal dx and rec's to send pro- calcitonin; if negative to d/c abx - continue empiric zosyn for now - BCx x2 pending Acute metabolic encephalopathy: pt delirious, likely 2/2 multifactorial including possible PNA/hypoxia, elderly, chronic comorbids, recent hosp c/b delirium Bilateral R>L pleural effusions: s/p a few thoracenteses in last 2 months, transudative, Pulm considering pleurX catheter - Pulm consulted, appreciate rec's for consideration of pleurx on Wednesday - volume management per HD Chronic HFrEF 45%: volume management per HD ESRD on HD MWF: Neph consulted CAD s/p CABG: ASA, plavix, lipitor 20, toprol 200 HTN: toprol 200, HD DM2: controlled, monitor PPx: sqh FEN: renal ADA, no MIVF Lines: PIV Consults: Neph, Pulm Code: Full Dispo: patient requires inpatient eval and management at this time. Anticipate 2-3 days. Will return to SNF. Internal Medicine: Result - Labs CBC & Chem 7: 11/19/18 04:13 11/19/18 04:13 Labs: Short CBC 11/18/18 11/19/18 Range/Units 16:29 04:13 WBC 4.1 L 4.2 L (4.3-11.1) K/mcL Hgb 10.1 L 9.9 L (12.9-16.9) g/dL Hct 32.5 L 32.4 L (37.5-50.1) % Plt Count 73 L 73 L (140-400) K/mcL Neutrophils # 1.8 (1.6-8.9) K/mcL BMP 11/18/18 11/19/18 16:29 04:13 Sodium 136 135 L Potassium 3.7 4.2 Chloride 98 98 Carbon Dioxide 32 H 31 H BUN 15 17 Creatinine 4.09 H 4.73 H Glucose 78 112 H Calcium 7.5 L 7.5 L Cardiac Enzymes 11/18/18 Range/Units 16:29 Troponin I 0.03 (< 0.04) ng/mL Liver Function 11/18/18 Range/Units 16:29 Total Bilirubin 0.5 (0.3-1.0) mg/dL Direct Bilirubin 0.2 (0.0-0.2) mg/dL AST 20 (13-39) Units/L ALT 8 (7-52) Units/L Alkaline Phosphatase 106 H (34-104) Units/L Albumin 3.2 L (3.5-5.7) g/dL - ABG Interpretation ABG results: ABG ABG pH 7.37 pH Units (7.32-7.45) 11/18/18 16:30 ABG pCO2 56 mmHg (35-45) H 11/18/18 16:30 ABG pO2 62 mmHg (85-104) L 11/18/18 16:30 ABG O2 Saturation 90 % (95-98) L 11/18/18 16:30 PT/INR, D-dimer PT 14.6 Seconds (9.4-12.1) H 11/18/18 16:29 - Impressions Impressions Chest X-Ray 11/18/18 16:07 IMPRESSION: 1. Stable moderate right and mild left pleural effusion. 2. Mild progressive bilateral pulmonary consolidation which may relate to atelectasis or superimposed pneumonia. D/ / 11/18/2018 16:30:27 Tristen Barillas MD / [facility] Interpreting Provider: Tristen Barillas MD Head CT 11/18/18 16:08 IMPRESSION: No acute intracranial abnormality. D/ / Rad Russo MD / Rad Russo MD Interpreting Provider: Rad Russo MD Chest CT 11/18/18 17:39 IMPRESSION: 1. Stable appearance of the chest with a large right pleural effusion and a small loculated left pleural effusion. Associated airspace changes also stable. 2. Evidence of cirrhosis in the visualized abdomen. 3. Questionable gastroesophageal reflux. D/ / Yury Talbert MD / Yury Talbert MD Interpreting Provider: Yury Talbert MD Consult Discharge Plan - Plan Referrals: David Strange DO [Primary Care Provider] -
[2018-11-19] MEDS: Calcium Acetate 667 MG CAPSULE PO SCH ×3 (08:05→17:53)
[2018-11-19] MEDS: Gabapentin 100 MG CAPSULE PO SCH ×3 (08:08→22:59)
[2018-11-19] MEDS ORDERED: Vancomycin 1 EACH in 0.9 % Sodium Chloride 250 ML IVPB PRN (09:00)
--- NOTE | 2018-11-19 14:01 | Electrocardiograph Report ---
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
[2018-11-19] MEDS ORDERED: Metoprolol XL (24 HR) Succ 50 MG TAB.ER.24H PO SCH (16:00)
[2018-11-19] MEDS ORDERED: Aspirin Enteric Coated 81 MG Tablet PO SCH (16:00)
[2018-11-19] MEDS ORDERED: Isosorbide MONOnitrate (24 HR) 30 MG TAB.ER.24H PO SCH (16:00)
--- NOTE | 2018-11-19 17:39 | Nephrology Consult Note ---
Date of Encounter: 11/19/18 Time of Encounter: 12:00 Assessment and Plan (1) ESRD (end stage renal disease) on dialysis Current Visit: Yes Status: Chronic s/p HD yesterday, no acute indication for HD today. Pt is not with visible signs of fluid overload at this time Cannot help his pleural effusion with dialysis Lytes WNL Fluid restriction advised Next HD planned for wednesday (2) Pleural effusion Current Visit: No Status: Acute per pulmonary (3) Pneumonia Current Visit: Yes Status: Acute per primary team Qualifiers: Pneumonia type: due to unspecified organism Laterality: unspecified laterality Lung location: unspecified part of lung Qualified Code(s): J18.9 - Pneumonia, unspecified organism (4) Altered mental status Current Visit: No Status: Acute Etiology unclear but appears confused. Workup per primary BUN noted atv17, not renal related Qualifiers: Qualified Code(s): R41.82 - Altered mental status, unspecified (5) Anemia Current Visit: No Status: Chronic Hgb noted at 9.9, will monitor Goal hgb at 10-11. Qualifiers: Anemia type: due to chronic kidney disease Chronic kidney disease stage: on chronic dialysis Qualified Code(s): N18.6 - End stage renal disease; D63.1 - Anemia in chronic kidney disease; Z99.2 - Dependence on renal dialysis History of Present Illness - Reason for Consult Consult date: 11/19/18 end stage renal disease Requesting physician: Hans Lazar - History of Present Illness 78 y o male with PMH of ESRD on HD, CAD s/p CABG, COPD on oxygen, liver cirrhosis and recurrent pleural effusion admitted after being discharged 2 days prior with SOB. Pt was noted during HD yesterday outpatient with SOB and reportedly told the nurse his lungs are "full". Of note, pt is under his estimated dry weight on arrival in HD and was challenged extra 1kg lower than EDW with no improvement in symptoms. Pt presented to the ED afterwards and was noted on imaging with bilateral pleural effusion. Pt seen and examined lying in bed sats in the 90s with mask appearing disoriented. Pt reports that "his father just " but on questioning is unable to elaborate (nurse verified that pt's father years ago). Past Med Surg Social Fam HX - Past Medical History Medical history: aortic aneurysm, arthritis, CHF, coronary artery disease, diabetes, dialysis, hyperlipidemia, hypertension, renal disease Additional medical history: BLADDER NECK CONTRACTURE, SQUAMOUS CELL CANCER. 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), triple bypass - Social History Smoking Status: Former smoker Smokeless Tobacco Status: No Alcohol use: none Drug use: none - Family History Father Adopted: No Family Member Ethnicity: Non- Living Status: Hx Family Cardiac Disorders: Yes ([place]) Mother Adopted: No Family Member Ethnicity: Non- Living Status: Hx Family Cancer: Yes Brother Family Member Ethnicity: Non- Living Status: Still Living Sister Adopted: No Family Member Ethnicity: Non- Living Status: Still Living Hx Family Cardiac Disorders: Yes Hx Family Respiratory Disorders: No Hx Family Cancer: Yes Hx Family GI Disorders: No Hx Family Endocrine Disorder: Yes Hx Family Neuromuscular Disorders: No Hx Family Neurologic Disorders: No Hx Family HEENT Disorders: No Hx Family Autoimmune Disorders: No Medications and Allergies Venlafaxine XR (24 HR) [Effexor Xr] 150 mg PO 199901/15/18 [History] Trazodone HCl 100 mg PO HS PRN 01/31/18 [History] Calcium Acetate [Phos-LO] 1,334 mg PO TIDWM 07/03/18 [History] Nitroglycerin [Nitrostat] 0.4 mg SL Q5M PRN 07/04/18 [History] Aspirin [Lo-Dose Aspirin EC] 81 mg PO 1600 08/23/18 [History] Acetaminophen [Tylenol 8 Hour] 650 mg PO Q6H PRN 10/17/18 [History] Guaifenesin [Mucinex] 600 mg PO BID PRN 10/17/18 [History] Ipratropium/Albuterol Neb [Duoneb] 3 ml IH Q6HR PRN 10/17/18 [History] Gabapentin [Neurontin] 100 mg PO TID 11/09/18 [History] Metoprolol Succinate 200 mg PO 1600 11/09/18 [History] Ondansetron ODT [Zofran ODT] 4 mg SL Q6HR PRN 11/09/18 [History] Atorvastatin Calcium 80 mg PO DAILY@199911/18/18 [History] Isosorbide MONOnitrate (24 HR) [Imdur] 30 mg PO DAILY@159911/18/18 [History] Tramadol HCl [Ultram] 50 mg PO BID PRN 11/18/18 [History] Allergy/AdvReac Type Severity Reaction Status Date / Time No Known Allergies Allergy Verified 11/09/18 07:04 Review of Systems ROS unobtainable: due to mental status Exam - Vital Signs Vital signs: Initial Vital Signs Temp Pulse Resp BP Pulse Ox 97.4 F L 92 17 139/86 88 11/18/18 16:05 11/18/18 16:05 11/18/18 16:05 11/18/18 16:05 11/18/18 16:05 Vital Signs - Last 8 Hours Temp Pulse Resp BP Pulse Ox 11/19/18 15:29 97.8 F 75 18 152/74 90 11/19/18 10:54 97.7 F 73 16 110/63 94 Intake and Output 11/19/18 11/19/18 11/19/18 07:59 15:59 23:59 Intake Total 150 / 150 Balance 150 / 150 Intake: Oral 150 / 150 Other: Meal Lunch Percent of Meal Consumed 0% Blood Glucose* 128 83 - General Appearance General appearance: chronically ill, frail EENT: ATNC, mucous membranes moist Neck: no JVD, supple Additional Comments: decreased BS bases R worse than left and at least half way up Cardiology: no edema, normal S1, normal S2 - Dialysis Access Dialysis Vascular Access: Arteriovenous Fistula thrill: Yes bruit: Yes Gastrointestinal: no tenderness, no guarding Integumentary: warm and dry Neurologic: confused, disoriented Musculoskeletal: no deformities Psychiatric: cooperative Results - Lab Results 11/19/18 04:13 11/19/18 04:13 Consult Discharge Plan - Plan Referrals: David Strange DO [Primary Care Provider] -
[2018-11-19] MEDS ORDERED: Vancomycin 500 MG in 0.9 % Sodium Chloride Mini Bag 100 ML IVPB ONE (18:00)
[2018-11-19] MEDS ORDERED: Venlafaxine XR (24 HR) 150 MG CAP.ER.24H PO SCH (20:00)
[2018-11-19] MEDS: traZODone 50 MG TABLET PO PRN (23:00)
[2018-11-20] MEDS ORDERED: Haloperidol Lactate 5 MG/ML VIAL IVP ONE ×2 (00:08→06:52)
[2018-11-20] MEDS ORDERED: *HR* Promethazine 25 MG/ML VIAL IVP ONE ×2 (00:08→06:53)
--- NOTE | 2018-11-20 01:40 | Event Note ---
Date of Encounter: 11/19/18 Time of Encounter: 19:42 Alerted by pts. nurse Joaquin Ybarra that the patient is here for HCAP and is a dialysis patient. Pt. has severely confused phases where he yells out, screams, and calls out for family. Nurse instructed to alert me when patient begins to have these symptoms. Alerted at 00:05 that the pt. was beginning to yell and was not responding to staff. Patient had received his evening meds of Neurontin, trazodone, Tylenol, Effexor, and Mucinex. Pt. settled down at 00:12. Nurse attempted to calm him down by reducing stimuli. Alerted at 01:20 that the pt. was now yelling and becoming aggressive with staff. Went to see the pt. who was agitated and yelling out for family. I ordered 0.5 mg Haldol IVP and 12.5 mg IVP Phenergan to address this pts. agitation and aggression. Pt. attempted to kick the nurse, so we subdued him to give these medications. I will add soft restraints if needed and if the pt. continues to become agitated and physically aggressive. Nurse instructed to place continuous pulse ox on the pt. if he settles down and Vocera me immediately if he does not. Nurse instructed to continue monitoring the pt. very closely and keep me updated on his status.
[2018-11-20] MEDS: *HR* Heparin 5,000 UNIT/ML VIAL SQ SCH (05:23)
[2018-11-20] MEDS: Piperacillin/Tazobactam 3.375 GM in 0.9 % Sodium Chloride Mini Bag 100 ML IVPB SCH (05:23)
--- NOTE | 2018-11-20 07:01 | Pulmonology Progress Note ---
Date of Encounter: 11/20/18 Time of Encounter: 07:01 Assessment and Plan (1) Acute on chronic respiratory failure with hypoxemia Current Visit: No Status: Acute This is secondary to hydrostatic pulmonary edema and less likely pneumonia patient has acceptable oxygenation on oxygen mask (2) Pneumonia Current Visit: Yes Status: Acute Pro-calcitonin is elevated and this may possibly reflect pneumonia and he is at risk for aspiration he is on appropriate antimicrobials for this pending culture workup Qualifiers: Lung location: unspecified part of lung Qualified Code(s): J18.9 - Pneumonia, unspecified organism (3) Pleural effusion Current Visit: No Status: Acute Unfortunately is not a candidate for any procedure at this time given the underlying delirium however once this resolves he can be considered for placement of Pleurx catheter we will assess each day for his candidacy (4) ESRD (end stage renal disease) on dialysis Current Visit: No Status: Acute Patient will likely benefit from dialysis for clearance and fluid removal given mental and respiratory status (5) Delirium due to another medical condition, acute, hyperactive Current Visit: Yes Status: Acute Worsening delirium overnight which is likely multifactorial including toxic metabolic sepsis hypoxia and rising BUN Management per primary team focus on jehovah's witness of sleep-wake cycle. avoid sensory deprivation, and avoid SOUND RECORDIST depressant medications as able. Subjective Principal diagnosis: Pleural Effusion Interval history: Unfortunately patient has had increasing agitation overnight requiring multiple medical interventions on the bedside sitter. He is still quite confused today and suspicious telling us that were keeping her against his will and reiterating again about the passing of his father and how he wants to be discharged to see him. He is also complaining of shortness of breath Objective PUL Vital signs: Last Vital Signs Temp 97.5 F L 11/20/18 06:54 Pulse 73 11/20/18 06:54 Resp 18 11/20/18 06:54 BP 108/62 11/20/18 06:54 Pulse Ox 97 11/20/18 06:54 General appearance: appears uncomfortable Eyes: nonicteric ENT: oropharynx dry Neck: supple Auscultation: left: rales, right: diminished breath sounds Cardiovascular: regular rate and rhythm Gastrointestinal: soft, non-tender Integumentary: normal Extremities: edema Musculoskeletal: no deformities motor strength normal and symmetric anxious Results - Laboratory Findings CBC and BMP: 11/20/18 07:15 11/20/18 07:15 ABG ABG pH 7.37 pH Units (7.32-7.45) 11/18/18 16:30 ABG pCO2 56 mmHg (35-45) H 11/18/18 16:30 ABG pO2 62 mmHg (85-104) L 11/18/18 16:30 ABG O2 Saturation 90 % (95-98) L 11/18/18 16:30 PT/INR, D-dimer PT 14.6 Seconds (9.4-12.1) H 11/18/18 16:29 Abnormal lab findings: Abnormal lab results WBC 4.2 K/mcL (4.3-11.1) L 11/19/18 04:13 RBC 3.30 M/mcL (4.19-5.50) L 11/19/18 04:13 Hgb 9.9 g/dL (12.9-16.9) L 11/19/18 04:13 Hct 32.4 % (37.5-50.1) L 11/19/18 04:13 MCHC 30.6 g/dL (31.6-35.5) L 11/19/18 04:13 RDW 16.0 % (11.5-14.5) H 11/19/18 04:13 Plt Count 73 K/mcL (140-400) L 11/19/18 04:13 0.9 K/mcL (0.0-0.6) H 11/18/18 16:29 Immature Plt Fraction 6.4 % (1.1-6.1) H 11/19/18 04:13 PT 14.6 Seconds (9.4-12.1) H 11/18/18 16:29 ABG pCO2 56 mmHg (35-45) H 11/18/18 16:30 ABG pO2 62 mmHg (85-104) L 11/18/18 16:30 ABG HCO3 33 mEq/L (21-27) H 11/18/18 16:30 ABG Total CO2 34 mEq/L (20-26) H 11/18/18 16:30 ABG O2 Saturation 90 % (95-98) L 11/18/18 16:30 ABG Base Excess 6 mEq/L (-2 to 3) H 11/18/18 16:30 Sodium 135 mEq/L (136-145) L 11/19/18 04:13 Carbon Dioxide 31 mEq/L (23-29) H 11/19/18 04:13 4.73 mg/dL (0.70-1.30) H 11/19/18 04:13 Est GFR ( Amer) 15 (> 60) L 11/19/18 04:13 Est GFR (Non-Af Amer) 12 (> 60) L 11/19/18 04:13 4 (6-26) L 11/19/18 04:13 Glucose 112 mg/dL (70-105) H 11/19/18 04:13 POC Glucose 102 mg/dL (70-99) H 11/19/18 10:53 Calcium 7.5 mg/dL (8.6-10.3) L 11/19/18 04:13 Phosphorus 2.3 mg/dL (2.7-4.5) L 11/18/18 16:29 106 Units/L (34-104) H 11/18/18 16:29 B-Natriuretic Peptide 1967 pg/mL (Less than 100) H 11/19/18 04:13 3.2 g/dL (3.5-5.7) L 11/18/18 16:29 4.7 g/dL (2.4-3.5) H 11/18/18 16:29 0.7 (1.1-2.2) L 11/18/18 16:29 5.16 ng/mL (0.00-0.15) H 11/19/18 15:40 - Microbiology Findings Microbiology Findings: Microbiology, Last 48 Hours 11/18/18 16:29 Blood Culture - Preliminary Peripheral Venipuncture Culture is incubating and being continuously monitored for growth. Final report to follow. 11/18/18 16:29 Blood Culture - Preliminary Peripheral Venipuncture Culture is incubating and being continuously monitor ed for growth. Final report to follow. - Clinical Findings Intake & Output: Intake & Output 11/19/18 11/19/18 11/20/18 15:59 23:59 07:59 Intake Total 250 / 250 100 / 100 Balance 250 / 250 100 / 100 Consult Discharge Plan - Plan Referrals: David Strange DO [Primary Care Provider] -
--- NOTE | 2018-11-20 07:17 | Internal Med Progress Note ---
Hospitalist Progress Note - Encounter Date of Encounter: 11/20/18 Time of Encounter: 07:17 - Subjective Interval History: Hyperactive delirium last night and again this morning. Pt stating he can't breathe, but clearly confused based on other statements and without any objective evidence of dyspnea. No reports of vomiting or diarrhea overnight. Pt did not eat much yesterday and is not taking pills at the moment. - Exam Vitals: Temp Pulse Resp BP Pulse Ox 97.5 F L 73 18 108/62 97 11/20/18 06:54 11/20/18 06:54 11/20/18 06:54 11/20/18 06:54 11/20/18 06:54 Exam: General: NAD, poor eye contact, normal work of breathing, agitated Thoracic: Does have blunted R basilar breath sounds, bilateral coarse breath sounds in lower lobes Cardio: Normal S1 and S2, regular rate and rhythm Abdomen: Soft, nontender Extremities: Warm, well perfused. DP pulses 2+ b/l. Pitting LE edema Skin: Scattered lacerations/abrasions on arms, bruising R arm Neuro: Awake, oriented to person only. Speech fluent. - Summary of Assessment and Plan Summary of Assessment and Plan: Ike Esquivel is a 78 M w hx ESRD on HD MWF, HFrEF 45%, CAD s/p CABG, COPD on 2L, HTN, DM2, recurrent pleural effusion, who p/w SOB, confusion, hypoxia, CXR showing bibasilar infiltrates and recurrent R>L pleural effusions, concerning for possible pneumonia causing acute on chronic hypoxic respiratory failure as well as acute metabolic encephalopathy. Hospital acquired pneumonia: seen on CXR but CT not very convincing, however procal up to 5. mrsa swab negative. - continue empiric zosyn for now - Pulm following, appreciate rec's - BCx x2 pending Acute metabolic encephalopathy: pt delirious, likely 2/2 multifactorial including possible PNA/hypoxia, elderly, chronic comorbids, recent hosp c/b delirium - risperdal 0.25 daily - precautions - consider prn haldol if agitation turns to aggression Bilateral R>L pleural effusions: s/p a few thoracenteses in last 2 months, transudative, Pulm considering pleurX catheter - Pulm consulted, appreciate rec's for consideration of pleurx on Wednesday if pt's delirium improves and he will allow procedure - volume management per HD Chronic HFrEF 45%: not acutely overloaded, volume management per HD ESRD on HD MWF: Neph consulted CAD s/p CABG: ASA, plavix, lipitor 20, toprol 200 HTN: toprol 200, HD DM2: controlled, monitor PPx: sqh FEN: renal ADA, no MIVF Lines: PIV Consults: Neph, Pulm Code: Full Dispo: patient requires inpatient eval and management at this time. Anticipate 1-3 days. Will return to SNF. Internal Medicine: Result - Labs CBC & Chem 7: 11/20/18 07:15 11/20/18 07:15 - ABG Interpretation ABG results: ABG ABG pH 7.37 pH Units (7.32-7.45) 11/18/18 16:30 ABG pCO2 56 mmHg (35-45) H 11/18/18 16:30 ABG pO2 62 mmHg (85-104) L 11/18/18 16:30 ABG O2 Saturation 90 % (95-98) L 11/18/18 16:30 PT/INR, D-dimer PT 14.6 Seconds (9.4-12.1) H 11/18/18 16:29 Consult Discharge Plan - Plan Referrals: David Strange DO [Primary Care Provider] -
[2018-11-20 07:38] LABS: Hematocrit 33.6 % (37.5-50.1); Hemoglobin 10.1 g/dL (12.9-16.9); Mean Corpuscular HGB Conc 30.1 g/dL (31.6-35.5); Mean Corpuscular Hemoglobin 29.6 pg (28.0-33.3); Mean Corpuscular Volume 98.5 fL (83.0-100.0); Mean Platelet Volume 10.6 fL (9.4-12.4); Red Blood Count 3.41 M/mcL (4.19-5.50); Red Cell Distribution Width 15.9 % (11.5-14.5); White Blood Count 4.7 K/mcL (4.3-11.1)
[2018-11-20 07:39] LABS: Platelet Count 75 K/mcL (140-400)
[2018-11-20 07:46] LABS: Calcium 7.6 mg/dL (8.6-10.3); Potassium 4.4 mEq/L (3.5-5.1)
[2018-11-20] MEDS ORDERED: Aminoglycoside Consult 1 EACH MC ONE (08:55)
[2018-11-20] MEDS ORDERED: risperiDONE 0.25 MG TABLET PO SCH (10:30)
[2018-11-20] MEDS: Gabapentin 100 MG CAPSULE PO SCH ×3 (10:34→22:30)
[2018-11-20] MEDS: Calcium Acetate 667 MG CAPSULE PO SCH ×2 (10:34→12:52)
[2018-11-20] MEDS ORDERED: *HR* Dextrose 50 % in Water (Syg) 50 ML SYRINGE IVP ONE (13:13)
--- NOTE | 2018-11-20 14:30 | Event Note ---
Date of Encounter: 11/20/18 Time of Encounter: 14:27 Long discussion at bedside with patient's , who has opted to make patient DNR Comfort Care and wishes to pursue hospice. She states she has had several discussions with him over the years, and that patient has grown increasingly frustrated and tired over the last few months and has stated multiple times that he wants to stop treatments including HD. Patient made Comfort Care. Will consult Palliative tomorrow.
[2018-11-20] MEDS ORDERED: *HR* HYDROmorphone (PF) 1 MG/ML SYRINGE IVP PRN (14:32)
--- NOTE | 2018-11-20 16:29 | Nephrology Progress Note ---
Date of Encounter: 11/20/18 Time of Encounter: 12:00 - Assessment and Plan (1) ESRD (end stage renal disease) on dialysis Current Visit: Yes Status: Chronic s/p HD wednesday prior to admission with SOB and altered mental status, no acute indication for HD today. Pt is still not visibly with signs of fluid overload at this time (not eating and drinking much!). Weight actually lower than his estimated dry weight Cannot help his pleural effusion with dialysis Lytes WNL Continue fluid restriction though hardly an issue since not drinking much at this time Next HD planned for wednesday but will be very problematic to cannulate his AVF with 15guage needles while agitated, will need to be sedated (2) Pleural effusion Current Visit: No Status: Acute per pulmonary (3) Pneumonia Current Visit: Yes Status: Acute per primary team Qualifiers: Pneumonia type: due to unspecified organism Laterality: unspecified laterality Lung location: unspecified part of lung Qualified Code(s): J18.9 - Pneumonia, unspecified organism (4) Altered mental status Current Visit: No Status: Acute Etiology unclear but appears confused. Workup per primary BUN noted at 24 which is quite low for a dialysis patient. Not uremic at this time Qualifiers: Qualified Code(s): R41.82 - Altered mental status, unspecified (5) Anemia Current Visit: No Status: Chronic Hgb noted at 10.1, will monitor Goal hgb at 10-11. Qualifiers: Anemia type: due to chronic kidney disease Chronic kidney disease stage: on chronic dialysis Qualified Code(s): N18.6 - End stage renal disease; D63.1 - Anemia in chronic kidney disease; Z99.2 - Dependence on renal dialysis Subjective Principal diagnosis: Pleural Effusion Interval history: Pt seen and examined with at bedside alternating between sleeping and bursts of agitation claiming his and nurse at out to hurt him. Per nurse, also had episodes overnight and was given haldol/phernegan last night and today. Discussed goals of care who says pt wants to be DNR but still welcomes all interventions for now Objective - Vital Signs Vital signs: Vital Signs Temp Pulse Resp BP Pulse Ox 11/20/18 15:27 97.5 F L 77 17 133/80 99 11/20/18 10:55 98.7 F 76 18 107/62 100 11/20/18 06:54 97.5 F L 73 18 108/62 97 11/20/18 04:42 98 F 82 18 124/75 90 11/19/18 23:52 97.9 F 78 20 111/60 99 11/19/18 23:13 99 11/19/18 19:22 98 F 76 17 161/67 97 Intake and Output 11/20/18 11/20/18 11/20/18 07:59 15:59 23:59 Intake Total 100 / 100 0 / 100 Balance 100 / 100 0 / 100 Intake: IV Fluids 100 / 100 Zosyn 3.375 GM In 0.9 % Sodium 100 / 100 Chloride (Mini-Bag +) 100 ML @ 25 mls/hr IVPB Q12HR [facility] Rx#: [id number] Oral 0 / 0 Other: Meal Breakfast Percent of Meal Consumed 0% # Urine Diapers 1 Blood Glucose* 83 67 - General Appearance General appearance: Present: chronically ill, fatigue, frail EENT: Present: ATNC, mucous membranes moist Neck: Present: no JVD, supple Additional Comments: decreased BS bases R worse than L, fci up with course BS bilateral Cardiology: Present: no edema (LE bilat), normal S1, normal S2 Dialysis Vascular Access: Arteriovenous Fistula thrill: Yes bruit: Yes Gastrointestinal: Present: no tenderness, no guarding Integumentary: Present: warm and dry Neurologic: Present: confused, disoriented Musculoskeletal: Present: no deformities Psychiatric: Present: agitated - Lab 11/20/18 07:15 11/20/18 07:15 Most recent lab results 11/20/18 07:15 Calcium 7.6 L Consult Discharge Plan - Plan Referrals: David Strange DO [Primary Care Provider] -
[2018-11-20] MEDS: traZODone 50 MG TABLET PO PRN (22:30)
[2018-11-20] MEDS: *HR* LORazepam 2 MG/ML VIAL IVP PRN (22:30)
--- NOTE | 2018-11-21 07:29 | Internal Med Progress Note ---
Hospitalist Progress Note - Encounter Date of Encounter: 11/21/18 Time of Encounter: 07:29 - Subjective Interval History: Pt still confused this AM. Unable to obtain interval history. Was confused most of evening and overnight. Per discussion w yesterday, she opted for DNR-CC. Apparently per Nephrology, still amenable to HD for now, which is different from my discussion with her. Palliative has been consulted and will help to clarify goals of care. - Exam Vitals: Temp Pulse Resp BP Pulse Ox 98.4 F 87 15 120/66 91 11/21/18 03:40 11/21/18 03:40 11/21/18 03:40 11/21/18 03:40 11/21/18 03:40 Exam: General: NAD, poor eye contact, normal work of breathing, agitated Thoracic: Does have blunted R basilar breath sounds, bilateral coarse breath sounds in lower lobes Cardio: Normal S1 and S2, regular rate and rhythm Abdomen: Soft, nontender Extremities: Warm, well perfused. DP pulses 2+ b/l. Pitting LE edema Skin: Scattered lacerations/abrasions on arms, bruising R arm Neuro: awakens to voice, oriented to person only, agitated/confused. Speech fluent and moves all extremities spontaneously - Summary of Assessment and Plan Summary of Assessment and Plan: Ike Esquivel is a 78 M w hx ESRD on HD MWF, HFrEF 45%, CAD s/p CABG, COPD on 2L, HTN, DM2, recurrent pleural effusion, who p/w SOB, confusion, hypoxia, CXR showing bibasilar infiltrates and recurrent R>L pleural effusions, concerning for possible pneumonia causing acute on chronic hypoxic respiratory failure as well as acute metabolic encephalopathy. Acute metabolic encephalopathy: pt continues to be delirious, requesting that we focus on comfort - palliative consulted for discussion re hospice in this chronically ill gentleman Hospital acquired pneumonia: seen on CXR but CT not very convincing, however procal up to 5. mrsa swab negative. Per , hospice and thus d/c abx. - d/c zosyn Bilateral R>L pleural effusions: originally planning for PleurX but pt now DNRCC, appreciate pulm consultation Chronic HFrEF 45%: not acutely overloaded, volume management per HD ESRD on HD MWF: Neph consulted CAD s/p CABG: ASA, plavix, lipitor 20, toprol 200 HTN: toprol 200, HD DM2: controlled, monitor PPx: sqh FEN: renal ADA, no MIVF Lines: PIV Consults: Neph, Pulm, Palliative Code: Full Dispo: pursuing hospice, will f/u palliative and SW Internal Medicine: Result - Labs CBC & Chem 7: 11/20/18 07:15 11/20/18 07:15 Labs: Short CBC 11/20/18 Range/Units 07:15 WBC 4.7 (4.3-11.1) K/mcL Hgb 10.1 L (12.9-16.9) g/dL Hct 33.6 L (37.5-50.1) % Plt Count 75 L (140-400) K/mcL BMP 11/20/18 07:15 Sodium 136 Potassium 4.4 Chloride 99 Carbon Dioxide 29 BUN 24 H Creatinine 6.41 H Glucose 76 Calcium 7.6 L - ABG Interpretation ABG results: ABG ABG pH 7.37 pH Units (7.32-7.45) 11/18/18 16:30 ABG pCO2 56 mmHg (35-45) H 11/18/18 16:30 ABG pO2 62 mmHg (85-104) L 11/18/18 16:30 ABG O2 Saturation 90 % (95-98) L 11/18/18 16:30 PT/INR, D-dimer PT 14.6 Seconds (9.4-12.1) H 11/18/18 16:29 Consult Discharge Plan - Plan Referrals: David Strange DO [Primary Care Provider] -
[2018-11-21] MEDS ORDERED: traMADol 50 MG TABLET PO PRN (07:41)
[2018-11-21] MEDS: Gabapentin 100 MG CAPSULE PO SCH ×3 (09:30→21:14)
[2018-11-21] MEDS: *HR* LORazepam 2 MG/ML VIAL IVP PRN (09:33)
--- NOTE | 2018-11-21 13:55 | Palliative - Consult Note ---
Date of Encounter: 11/21/18 Time of Encounter: 12:00 - Assessment and Plan (1) Dyspnea Current Visit: No Status: Acute Assessment and plan: patient is short of breath and asking for help. will add Roxanol SL q6hrs scheduled with holding parameters for dyspnea Qualifiers: Dyspnea type: shortness of breath Qualified Code(s): R06.02 - Shortness of breath; R06.00 - Dyspnea, unspecified; R06.01 - Orthopnea (2) Goals of care, counseling/discussion Current Visit: Yes Status: Acute Assessment and plan: 40 minutes meeting with patient's Julieta. Discussed current medical co ndition, trajectory of illness, goals of care and treatment option. stated that patient has been in and out of hospitals and rehab for the last year and half. Based on conversation with treatment team, patient is not likely to return to active baseline and return home. Per previous conversation with patient, states he wouls not want to continue current level of care if his condition is t erminal. Patient has expressed the wishes to not have is dying process prolonged. does not want to continue acute treatment at this point, decided for DNRCC, discontinuation of ABX and HD, and comfort care only. Patient is eligible for hospice in the bases of ESRD, with co-morbidities of liver failure, CHF and respiratory failure. Discussed different settings for hospice care. Patient doesn't have medicaid in place, and at this time appeared comfortable and able to receive SL medication, no bases to justify GI admission. Discussed that options will be SNF with family paying for room on board, or home with hospice if family can provide care. Patient's is unable to evaluate and decide on her own. Patient has 3 children, will reach them to schedule family meeting for tomorrow afternoon. Time to be determined. Called and reached PAINTER AND PAPERHANGER APPRENTICE for assistance. Case discussed with Dr. Lazar. (3) Palliative care encounter Current Visit: Yes Status: Acute (4) ESRD (end stage renal disease) on dialysis Current Visit: No Status: Acute (5) Pleural effusion Current Visit: No Status: Acute (6) Pneumonia Current Visit: Yes Status: Acute Qualifiers: Lung location: unspecified part of lung Qualified Code(s): J18.9 - Pneumonia, unspecified organism Palliative-CN HPI - Data of Consult Patient: new to practice Consult date: 11/21/18 Requesting Physician: Hans Lazar Primary Care Provider: David Strange DO - Consult Narrative Palliative Care/Comfort Measures: Palliative care Reason for consult: hospice evaluation History of present illness: Mr. Esquivel is a 78 year old male w hx ESRD on HD MWF, HFrEF 45%, CAD s/p CABG, COPD on 2L, HTN, DM2, recurrent pleural effusion, who p/w shortness of breath. On admission o2sat was 88%, and CXRay showed large right-sided pleural effusion which had re-accumulated patient undergone thoracentesis about 2 weeks ago there is also concern for pneumonia, pt received ABX. He was very agitated and confused, so thoracentesis was held off. Nephrology and primary hospitalist have extensive discussion with pt and for goals of care and she decided for DNRCC. Palliative care consult for hospice evaluation. At the time of exam, pt was sleeping, arousable on vigorous stimuli, and complaining of feeling short of breath. He denied pain, nausea, vomiting. Minimal po intake in the last few days. Oriented to person, recognized and grand-daughter. CC: Hans Lazar - Time Spent with Patient Time: Total time spent is greater than 50% in coordination of care (as documented) at patient's floor/unit and/or counseling patient: Time with patient: 75 minutes Past Med Surg Social Fam HX - Past Medical History Medical history: aortic aneurysm, arthritis, CHF, coronary artery disease, diabetes, dialysis, hyperlipidemia, hypertension, renal disease Additional medical history: BLADDER NECK CONTRACTURE, SQUAMOUS CELL CANCER. 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), triple bypass - Social History Smoking Status: Former smoker Smokeless Tobacco Status: No Alcohol use: none Drug use: none - Family History Father Adopted: No Family Member Ethnicity: Non- Living Status: Hx Family Cardiac Disorders: Yes (SD) Mother Adopted: No Family Member Ethnicity: Non- Living Status: Hx Family Cancer: Yes Brother Family Member Ethnicity: Non- Living Status: Still Living Sister Adopted: No Family Member Ethnicity: Non- Living Status: Still Living Hx Family Cardiac Disorders: Yes Hx Family Respiratory Disorders: No Hx Family Cancer: Yes Hx Family GI Disorders: No Hx Family Endocrine Disorder: Yes Hx Family Neuromuscular Disorders: No Hx Family Neurologic Disorders: No Hx Family HEENT Disorders: No Hx Family Autoimmune Disorders: No Medications and Allergies Venlafaxine XR (24 HR) [Effexor Xr] 150 mg PO 199901/15/18 [History] Trazodone HCl 100 mg PO HS PRN 01/31/18 [History] Calcium Acetate [Phos-LO] 1,334 mg PO TIDWM 07/03/18 [History] Nitroglycerin [Nitrostat] 0.4 mg SL Q5M PRN 07/04/18 [History] Aspirin [Lo-Dose Aspirin EC] 81 mg PO 1600 08/23/18 [History] Acetaminophen [Tylenol 8 Hour] 650 mg PO Q6H PRN 10/17/18 [History] Guaifenesin [Mucinex] 600 mg PO BID PRN 10/17/18 [History] Ipratropium/Albuterol Neb [Duoneb] 3 ml IH Q6HR PRN 10/17/18 [History] Gabapentin [Neurontin] 100 mg PO TID 11/09/18 [History] Metoprolol Succinate 200 mg PO 1600 11/09/18 [History] Ondansetron ODT [Zofran ODT] 4 mg SL Q6HR PRN 11/09/18 [History] Atorvastatin Calcium 80 mg PO DAILY@199911/18/18 [History] Isosorbide MONOnitrate (24 HR) [Imdur] 30 mg PO DAILY@159911/18/18 [History] Tramadol HCl [Ultram] 50 mg PO BID PRN 11/18/18 [History] Allergy/AdvReac Type Severity Reaction Status Date / Time No Known Allergies Allergy Verified 11/09/18 07:04 ROS unobtainable: due to mental status - Respiratory Respiratory: dyspnea - Gastrointestinal Gastrointestinal: no abdominal pain Palliative Care-Exam - Constitutional Vitals: Temp Pulse Resp BP Pulse Ox 98.2 F 89 16 151/79 100 11/21/18 11:22 11/21/18 11:22 11/21/18 11:22 11/21/18 11:22 11/21/18 11:22 Exam: General: drowsy, NAD Head: Atraumatic, normocephalic. Face symmetric Eyes: EOMI, sclerae anicteric ENT: Mucous membranes moist. Normal oral mucosa and dentition. Trachea midline. Thoracic: reduced R breath sounds, bilateral coarse breath sounds in lower lobes Cardio: Normal S1 and S2, regular rate and rhythm Abdomen: Soft, nontender, nondistended. Bowel sounds present. No rebound Extremities: Warm, well perfused. DP pulses 2+ b/l. No clubbing, cyanosis. Pitting LE edema Skin: Scattered lacerations/abrasions on arms, bruising R arm Neuro: drowsy, moving all extremities, oriented to person Internal Medicine - CN: Reslt - Labs CBC & Chem 7: 11/20/18 07:15 11/20/18 07:15 - ABG Interpretation ABG results: ABG ABG pH 7.37 pH Units (7.32-7.45) 11/18/18 16:30 ABG pCO2 56 mmHg (35-45) H 11/18/18 16:30 ABG pO2 62 mmHg (85-104) L 11/18/18 16:30 ABG O2 Saturation 90 % (95-98) L 11/18/18 16:30 PT/INR, D-dimer PT 14.6 Seconds (9.4-12.1) H 11/18/18 16:29 Consult Discharge Plan - Plan Referrals: David Strange DO [Primary Care Provider] - Palliative Quality Palliative Quality: Screen for Code Status: Yes, Screen for Goals of Care: Yes, Screen for Pain: Yes, If Pain Regimen Started, Initiate Bowel Regimen: Yes, Screen for Nausea/Vomitting: Yes Code Status: 11/18/18 17:42 Resuscitation Status: Active [RES] Routine Comment: Resuscitation Status: Full Code 11/20/18 14:30 CODE [Resuscitation Status: Active] [RES] Routine Comment: Resuscitation Status: DNR-Comfort Care Palliative Scale - Palliative Performance Scale How ambulatory is this patient?: Mainly in bed What is patient's level of activity and evidence of disease?: Unable to do any work, Extensive disease How much self-care assistance does patient require?: Mainly assistance How much oral intake does the patient have?: Normal or reduced What is this patient's level of consciousness?: Full or drowsy with or without confusion Palliative Performance Score: 30 %
[2018-11-21] MEDS ORDERED: Morphine Sulfate Oral CONC 10 MG/0.5 ML ORAL.SYG SL PRN (13:57)
[2018-11-21] MEDS: Morphine Sulfate Oral CONC 10 MG/0.5 ML ORAL.SYG SL SCH ×2 (15:42→21:15)
--- NOTE | 2018-11-21 17:39 | Nephrology Progress Note ---
Date of Encounter: 11/21/18 Time of Encounter: 12:00 - Assessment and Plan (1) ESRD (end stage renal disease) on dialysis Current Visit: Yes Status: Chronic Pt is now DNRCC with hospice care in the works No more HD treatments at this time Will signoff, please reconsult prn (2) Pleural effusion Current Visit: No Status: Acute per primary and palliative care (3) Pneumonia Current Visit: Yes Status: Acute per primary team Qualifiers: Pneumonia type: due to unspecified organism Laterality: unspecified laterality Lung location: unspecified part of lung Qualified Code(s): J18.9 - Pneumonia, unspecified organism (4) Altered mental status Current Visit: No Status: Acute Etiology unclear but appears confused. No uremic but will eventually become without HD sessions Qualifiers: Qualified Code(s): R41.82 - Altered mental status, unspecified (5) Anemia Current Visit: No Status: Chronic Qualifiers: Anemia type: due to chronic kidney disease Chronic kidney disease stage: on chronic dialysis Qualified Code(s): N18.6 - End stage renal disease; D63.1 - Anemia in chronic kidney disease; Z99.2 - Dependence on renal dialysis Subjective Principal diagnosis: Pleural Effusion Interval history: Pt seen and examined and case discussed with palliative care. Pt sis now comfort care and possibly hospice care and will no longer require HD at this time Objective - Vital Signs Vital signs: Vital Signs Temp Pulse Resp BP Pulse Ox 11/21/18 15:38 98.3 F 86 16 156/82 97 11/21/18 11:22 98.2 F 89 16 151/79 100 11/21/18 03:40 98.4 F 87 15 120/66 91 11/20/18 23:48 98.5 F 87 16 92/52 98 11/20/18 20:09 98.3 F 81 17 138/69 99 Intake and Output 11/21/18 11/21/18 11/21/18 07:59 15:59 23:59 Intake Total 0 / 0 Balance 0 / 0 Intake: Oral 0 / 0 Other: Meal Lunch Percent of Meal Consumed 0% Weight 94 kg Blood Glucose* 71 Patient Weight 11/21/18 23:59 Weight 94 kg - General Appearance General appearance: Present: chronically ill, anxious EENT: Present: ATNC, mucous membranes moist Neck: Present: no JVD, supple Additional Comments: decreased BS R>L Cardiology: Present: no edema, normal S1, normal S2 Dialysis Vascular Access: Arteriovenous Fistula thrill: Yes bruit: Yes Gastrointestinal: Present: no tenderness, no guarding Integumentary: Present: warm and dry Neurologic: Present: confused, disoriented Musculoskeletal: Present: no deformities Psychiatric: Present: cooperative - Lab 11/20/18 07:15 11/20/18 07:15 Consult Discharge Plan - Plan Referrals: David Strange DO [Primary Care Provider] -
[2018-11-21] MEDS: traZODone 50 MG TABLET PO PRN (21:14)
[2018-11-22] MEDS: *HR* LORazepam 2 MG/ML VIAL IVP PRN ×2 (02:39→08:48)
[2018-11-22] MEDS: Morphine Sulfate Oral CONC 10 MG/0.5 ML ORAL.SYG SL SCH ×6 (02:40→18:53)
[2018-11-22] MEDS: Gabapentin 100 MG CAPSULE PO SCH ×3 (07:47→20:45)
--- NOTE | 2018-11-22 10:22 | Internal Med Progress Note ---
Hospitalist Progress Note - Encounter Date of Encounter: 11/22/18 Time of Encounter: 10:15 - Subjective Interval History: Pt has fluctuating course. Previously very delirious and opted for comfort care, plan for family meeting today. This AM, RN reports that patient is awake and oriented, and requests HD and to continue medical treatments, but also that he was complaining of severe shortness of breath for which ativan was given prior to my ability to see patient. At time of my exam, patient was very drowsy, unable to answer my questions today but not combative/agitated. Will return later in day. RN instructed not to give sedating/palliative meds if patient requesting continued medical therapies. Nephrology notified. - Exam Vitals: Temp Pulse Resp BP Pulse Ox 98.0 F 86 16 129/74 93 11/22/18 07:11 11/22/18 07:11 11/22/18 07:11 11/22/18 07:11 11/22/18 07:11 Exam: General: NAD, normal work of breathing Thoracic: Does have blunted R basilar breath sounds, bilateral coarse breath sounds in lower lobes Cardio: Normal S1 and S2, regular rate and rhythm Abdomen: Soft, nontender Extremities: Warm, well perfused. DP pulses 2+ b/l. Minimal LE edema Skin: Scattered lacerations/abrasions on arms, bruising R arm Neuro: awakens to loud voice or gentle stim, falls back asleep quickly, oriented to person and place, speech fluent and moves all extremities spontaneously - Summary of Assessment and Plan Summary of Assessment and Plan: Ike Esquivel is a 78 M w hx ESRD on HD MWF, HFrEF 45%, CAD s/p CABG, COPD on 2L, HTN, DM2, recurrent pleural effusion, who p/w SOB, confusion, hypoxia, CXR showing bibasilar infiltrates and recurrent R>L pleural effusions, concerning for possible pneumonia causing acute on chronic hypoxic respiratory failure as well as acute metabolic encephalopathy. Acute metabolic encephalopathy: today appears to have more clarity, and pt requesting at this time to continue therapy - precautions - Palliative, Neph, and hospitalist to further discuss with patient when ativan wears off HAP: oxygenation is good and CT equivocal, CXR suggesting infiltrates and pro- ashutosh up to 5, rec'd 4 days zosyn and will start levaquin po to complete 8 days Bilateral R>L pleural effusions: originally planning for PleurX but plan on hold given change to DNRCC. Today pt requesting medical therapy, will await further discussion with palliative and Neph ESRD on HD MWF: Neph consulted COPD and chronic hypoxic respiratory failure on 2L: home 2L Chronic HFrEF 45%: not acutely overloaded, volume management per HD CAD s/p CABG: ASA, plavix, lipitor 20, toprol 200 HTN: toprol 200, HD DM2: controlled, monitor PPx: SCDs FEN: renal ADA, no MIVF Lines: PIV Consults: Neph, Pulm, Palliative Code: DNRCC-A Dispo: family meeting later today, initially from SNF, dispo unclear at this time Internal Medicine: Result - Labs CBC & Chem 7: 11/20/18 07:15 11/20/18 07:15 - ABG Interpretation ABG results: ABG ABG pH 7.37 pH Units (7.32-7.45) 11/18/18 16:30 ABG pCO2 56 mmHg (35-45) H 11/18/18 16:30 ABG pO2 62 mmHg (85-104) L 11/18/18 16:30 ABG O2 Saturation 90 % (95-98) L 11/18/18 16:30 PT/INR, D-dimer PT 14.6 Seconds (9.4-12.1) H 11/18/18 16:29 Consult Discharge Plan - Plan Referrals: David Strange DO [Primary Care Provider] -
--- NOTE | 2018-11-22 12:53 | Palliative Progress Note ---
Date of Encounter: 11/22/18 Time of Encounter: 12:00 - Assessment and plan (1) Dyspnea Current Visit: No Status: Acute Assessment and plan: Roxanol in place, per nursing patient has been refusing it, he prefers ativan. will order Ativan PO 0.5mg q4hrs prn Qualifiers: Dyspnea type: shortness of breath Qualified Code(s): R06.02 - Shortness of breath; R06.00 - Dyspnea, unspecified; R06.01 - Orthopnea (2) Goals of care, counseling/discussion Current Visit: Yes Status: Acute Assessment and plan: 1200 to 1245: meeting between PC, Neprology Dr. Rios, P[employer] HELPER Yadi, patient, wi fe Julieta, daughter Maria Alejandra. Discussed at length patient's current medical condition, trajectory of illness, prognosis and treatment options. Patient was unable to fully participate in the discussion as he was in and out of awareness. Explained that pt does not appear to have insight at this point on his medical condition. Family have known patient's wishes for some time, is adamant that patient did not want to live in his current quality of life, and Tesha is willing to proceed with comfort care. However, patient's Julieta wants a chance to discuss further with patient. Discuss treatment options: resuming full care, including HD, pulmonary re-evaluation for the pleural effusion, and possible rehab if patient improves enough; or proceeding with hospice care. Family is unable to care for pt at home , or to pay for room [place] at a [place] [facility]. BHASKAR Grullon explained the financial needs, and the possibility to apply for medicaid if pt qualifies. Yadi to contact financial services to meet with family. Nephrology gave family about 1 hour for a final decision about dialysis as they are getting prepared. Son Tyson on his way and family will decide once he gets here. 1305 to 1355: conducted another family meeting with pt's daughter Maria Alejandra, son Tyson, Julieta, pt's sister and vcnifc-li-tef, as well as pt's daughter on speaker phone. Discussed again pt's case in detail, as well as expectations and goals of care. Son is convinced that at this point patient needs comfort care only and anything else is just prolonging the dying process and against pt's wishes. However, family is struggling emotionally, as someone witnessed a moment of pt's lucidity this morning when he reportedly said: "today is Wednesday, why am I not in dialysis?". Family decided to attempt HD today, see if pt will tolerate it, and if there will be any improvement to his mental status to a p oint where he can weight in to the decision making. Family to follow up with /financial for Medicaid application. Patient remains DNRCC. Palliative care will continue to follow and assist with emotional support and GOC. (3) Palliative care encounter Current Visit: Yes Status: Acute (4) ESRD (end stage renal disease) on dialysis Current Visit: No Status: Acute Assessment and plan: for HD today, further GOC decision based on how pt will do with HD. (5) Pleural effusion Current Visit: No Status: Acute (6) Pneumonia Current Visit: Yes Status: Acute Qualifiers: Lung location: unspecified part of lung Qualified Code(s): J18.9 - Pneumon ia, unspecified organism - Time Spent With Patient Total time spent is greater than 50% in coordination of care (as documented) at patient's floor/unit and/or counseling patient: >90 minutes Greater than 35 minutes - Subjective Interval history: Today patient was drowsy, but able to wake up transiently during the encounter. when awake, he was asking for HD as he knows he needs it to stay alive, however, he is unable to elaborate further on his clinical status, or participate in a complex goals of care discussion. Complaining of SOB, he denies any pain. per family for the last few days he have had very minimal food intake. - Constitutional Vitals: Abnormal lab results WBC 4.2 K/mcL (4.3-11.1) L 11/19/18 04:13 RBC 3.41 M/mcL (4.19-5.50) L 11/20/18 07:15 Hgb 10.1 g/dL (12.9-16.9) L 11/20/18 07:15 Hct 33.6 % (37.5-50.1) L 11/20/18 07:15 MCHC 30.1 g/dL (31.6-35.5) L 11/20/18 07:15 RDW 15.9 % (11.5-14.5) H 11/20/18 07:15 Plt Count 75 K/mcL (140-400) L 11/20/18 07:15 0.9 K/mcL (0.0-0.6) H 11/18/18 16:29 Immature Plt Fraction 6.4 % (1.1-6.1) H 11/19/18 04:13 PT 14.6 Seconds (9.4-12.1) H 11/18/18 16:29 ABG pCO2 56 mmHg (35-45) H 11/18/18 16:30 ABG pO2 62 mmHg (85-104) L 11/18/18 16:30 ABG HCO3 33 mEq/L (21-27) H 11/18/18 16:30 ABG Total CO2 34 mEq/L (20-26) H 11/18/18 16:30 ABG O2 Saturation 90 % (95-98) L 11/18/18 16:30 ABG Base Excess 6 mEq/L (-2 to 3) H 11/18/18 16:30 Sodium 135 mEq/L (136-145) L 11/19/18 04:13 Carbon Dioxide 31 mEq/L (23-29) H 11/19/18 04:13 BUN 24 mg/dL (8-23) H 11/20/18 07:15 6.41 mg/dL (0.70-1.30) H 11/20/18 07:15 Est GFR ( Amer) 10 (> 60) L 11/20/18 07:15 Est GFR (Non-Af Amer) 9 (> 60) L 11/20/18 07:15 4 (6-26) L 11/20/18 07:15 Glucose 112 mg/dL (70-105) H 11/19/18 04:13 POC Glucose 107 mg/dL (70-99) H 11/22/18 07:13 Calcium 7.6 mg/dL (8.6-10.3) L 11/20/18 07:15 Phosphorus 2.3 mg/dL (2.7-4.5) L 11/18/18 16:29 106 Units/L (34-104) H 11/18/18 16:29 B-Natriuretic Peptide 1967 pg/mL (Less than 100) H 11/19/18 04:13 3.2 g/dL (3.5-5.7) L 11/18/18 16:29 4.7 g/dL (2.4-3.5) H 11/18/18 16:29 0.7 (1.1-2.2) L 11/18/18 16:29 5.16 ng/mL (0.00-0.15) H 11/19/18 15:40 Exam: General: drowsy, NAD Head: Atraumatic, normocephalic. Face symmetric Eyes: EOMI, sclerae anicteric ENT: Mucous membranes dry Thoracic: reduced R breath sounds, bilateral coarse breath sounds in lower lobes Cardio: Normal S1 and S2, regular rate and rhythm Abdomen: Soft, nontender, nondistended. Bowel sounds present. No rebound Extremities: Warm, well perfused. DP pulses 2+ b/l. No clubbing, cyanosis. Skin: Scattered lacerations/abrasions on arms, bruising R arm Neuro: drowsy, moving all extremities, oriented x3, but unable to handle complex conversation. Palliative Quality Palliative Quality: Screen for Code Status: Yes, Screen for Goals of Care: Yes, Screen for Pain: Yes, If Pain Regimen Started, Initiate Bowel Regimen: Yes, Screen for Nausea/Vomitting: Yes Code Status: 11/18/18 17:42 Resuscitation Status: Active [RES] Routine Comment: Resuscitation Status: Full Code 11/20/18 14:30 CODE [Resuscitation Status: Active] [RES] Routine Comment: Resuscitation Status: DNR-Comfort Care - Labs CBC & Chem 7: 11/20/18 07:15 11/20/18 07:15 Labs: Laboratory Results - last 24 hr 11/21/18 11/21/18 11/22/18 11:19 15:37 07:13 POC Glucose 88 71 107 H - ABG Interpretation ABG results: ABG ABG pH 7.37 pH Units (7.32-7.45) 11/18/18 16:30 ABG pCO2 56 mmHg (35-45) H 11/18/18 16:30 ABG pO2 62 mmHg (85-104) L 11/18/18 16:30 ABG O2 Saturation 90 % (95-98) L 11/18/18 16:30 PT/INR, D-dimer PT 14.6 Seconds (9.4-12.1) H 11/18/18 16:29 Palliative Scale - Palliative Performance Scale How ambulatory is this patient?: Mainly in bed What is patient's level of activity and evidence of disease?: Unable to do any work, Extensive disease How much self-care assistance does patient require?: Mainly assistance How much oral intake does the patient have?: Normal or reduced What is this patient's level of consciousness?: Full or drowsy with or without confusion Palliative Performance Score: 40 % Consult Discharge Plan - Plan Referrals: David Strange DO [Primary Care Provider] -
[2018-11-22] MEDS ORDERED: 0.9 % Sodium Chloride 1,000 ML ONE (13:05)
[2018-11-22] MEDS ORDERED: *HR* Heparin 10,000 UNIT/10 ML VIAL IV PRN (13:09)
[2018-11-22] MEDS ORDERED: 0.9 % Sodium Chloride 250 ML IVC PRN (13:09)
[2018-11-22] MEDS ORDERED: 0.9 % Sodium Chloride 1,000 ML PRIME SCH (13:15)
--- NOTE | 2018-11-22 21:45 | Nephrology Progress Note ---
Date of Encounter: 11/22/18 Time of Encounter: 12:00 - Assessment and Plan (1) ESRD (end stage renal disease) on dialysis Current Visit: Yes Status: Chronic Orders given for HD with UF and transport within an hour while family remains in discussions on goals of care. Emphasized to family that HD is a life sustaining process that cannot be done in isolation from all the other interventions needed including pleurodesis and would not sustain a patient with no nutrition. (2) Pleural effusion Current Visit: No Status: Acute Pulmonary re-eval for pleurodesis if family desires continued life saving measures (3) Pneumonia Current Visit: Yes Status: Acute Per primary Qualifiers: Pneumonia type: due to unspecified organism Laterality: unspecified laterality Lung location: unspecified part of lung Qualified Code(s): J18.9 - Pneumonia, unspecified organism (4) Altered mental status Current Visit: No Status: Acute Per primary; waxes and wanes. Not uremic Qualifiers: Qualified Code(s): R41.82 - Altered mental status, unspecified (5) Anemia Current Visit: No Status: Chronic No new labs available today Qualifiers: Anemia type: due to chronic kidney disease Chronic kidney disease stage: on chronic dialysis Qualified Code(s): N18.6 - End stage renal disease; D63.1 - Anemia in chronic kidney disease; Z99.2 - Dependence on renal dialysis Subjective Principal diagnosis: Pleural Effusion Interval history: Called by nurse this am to informed that pt was more awake and requesting dialysis. Pt seen and examined with , sister in law, daughter present at bedside along with Dr Barnes, spent at least 30mins or more in discussion. Pt was waxing and waning in consciousness the whole time. Family ultimately had a course reversal and decided on dialysis today. Pt is still not eating and they have been unable to get more that 2 small vanilla icecream cups into him in the past 2 days and he is still complaining of SOB. Objective - Vital Signs Vital signs: Vital Signs Temp Pulse Resp BP Pulse Ox 11/22/18 20:20 98.8 F 101 16 140/76 96 11/22/18 17:35 97.5 F L 15 140/73 11/22/18 17:15 128/68 11/22/18 17:00 130/78 11/22/18 16:45 125/72 11/22/18 16:30 117/76 11/22/18 16:15 127/74 11/22/18 16:00 125/67 11/22/18 15:45 128/72 11/22/18 15:30 122/72 11/22/18 15:15 119/74 11/22/18 15:00 131/80 11/22/18 14:45 133/80 11/22/18 14:30 146/81 11/22/18 14:15 97.8 F 15 141/83 11/22/18 10:46 97.8 F 83 16 129/70 99 11/22/18 07:11 98.0 F 86 16 129/74 93 11/22/18 04:44 98.3 F 86 17 92/60 100 11/21/18 23:55 98.5 F 92 16 113/53 94 Intake and Output 11/22/18 11/22/18 11/22/18 07:59 15:59 23:59 Intake Total 740 / 740 Output Total 3500 / 3500 Balance 740 / -2760 -3500 / -2760 Intake: Oral 240 / 240 Intake, Rinseback and Flushes 500 / 500 Output: Urine 0 / 0 Total Dialysis (HD) Output 3500 / 3500 Other: Meal Breakfast Percent of Meal Consumed 25% Blood Glucose* 107 105 132 Hemodialysis Net Fluid Removed 1758 3000 (mL) - General Appearance General appearance: Present: chronically ill, fatigue EENT: Present: ATNC, mucous membranes dry Neck: Present: no JVD, supple Additional Comments: decreased BS R>L Cardiology: Present: no edema, normal S1, normal S2 Dialysis Vascular Access: Arteriovenous Fistula thrill: Yes bruit: Yes Gastrointestinal: Present: no tenderness, no guarding Integumentary: Present: warm and dry Neurologic: Present: confused, disoriented Musculoskeletal: Present: no deformities Psychiatric: Present: cooperative - Lab 11/20/18 07:15 11/20/18 07:15 Consult Discharge Plan - Plan Referrals: David Strange DO [Primary Care Provider] -
[2018-11-23] MEDS: traZODone 50 MG TABLET PO PRN ×2 (01:09→19:46)
[2018-11-23] MEDS: *HR* LORazepam 2 MG/ML VIAL IVP PRN ×3 (01:09→19:46)
[2018-11-23] MEDS: Morphine Sulfate Oral CONC 10 MG/0.5 ML ORAL.SYG SL SCH ×4 (01:10→11:34)
[2018-11-23 05:58] LABS: Hematocrit 36.6 % (37.5-50.1)
[2018-11-23 05:59] LABS: Hemoglobin 11.1 g/dL (12.9-16.9); Immature Platelets 4.3 % (1.1-6.1); Mean Corpuscular HGB Conc 30.3 g/dL (31.6-35.5); Mean Corpuscular Hemoglobin 30.2 pg (28.0-33.3); Mean Corpuscular Volume 99.7 fL (83.0-100.0); Mean Platelet Volume 10.3 fL (9.4-12.4); Red Blood Count 3.67 M/mcL (4.19-5.50); White Blood Count 4.9 K/mcL (4.3-11.1)
[2018-11-23 06:20] LABS: Calcium 7.7 mg/dL (8.6-10.3); Potassium 4.1 mEq/L (3.5-5.1)
--- NOTE | 2018-11-23 07:32 | Internal Med Progress Note ---
Hospitalist Progress Note - Encounter Date of Encounter: 11/23/18 Time of Encounter: 09:00 - Subjective Interval History: awake, has eaten small amount of his breakfast. No family at bedside. + sob, cough is dry, denies wheezing. Denies fevers, chills, nausea or emesis. He knows he is at [place]. He has trouble identifying the year. - Exam Vitals: Temp Pulse Resp BP Pulse Ox 97.7 F 106 17 99/54 92 11/23/18 03:39 11/23/18 03:39 11/23/18 03:39 11/23/18 03:39 11/23/18 03:39 Exam: gen- alert, awake,appears stated age eyes- pupils equal round , eom intact cv- reg rate and rhythm, normal s1,s2, no le edema lungs- ctabl, diminished bl bases , no wheezing, rhonchi or crackles, normal resp effort on o2 nc abd- soft, non tender, non distended, + bs neuro- AAOxperson, place, CN grossly intact - Assessment and Plan (1) Pneumonia Current Visit: Yes Status: Suspected (2) ESRD (end stage renal disease) on dialysis Current Visit: Yes Status: Chronic (3) Metabolic encephalopathy Current Visit: No Status: Acute (4) Pleural effusion Current Visit: No Status: Acute - Summary of Assessment and Plan Summary of Assessment and Plan: Ike Esquivel is a 78 M w hx ESRD on HD MWF, HFrEF 45%, CAD s/p CABG, COPD on 2L, HTN, DM2, recurrent pleural effusion, liver cirrhosis who p/w SOB, confusion, hypoxia, CXR showing bibasilar infiltrates and recurrent R>L pleural effusions. Admitted for possible pneumonia causing acute on chronic hypoxic respiratory failure, recurrent liver cirrhosis related pleural effusion, as well as acute metabolic encephalopathy. Acute metabolic encephalopathy: improved with abx treatment and dialysis Possible Pna, no organism identified CT equivocal, CXR suggesting infiltrates -as d/w pharmacist today he received IV abx treatment earlier this course, has been stable and cont to improve off abx for last 3 days, no further abx Bilateral R>L pleural effusions: originally planning for PleurX given this is liver cirrhosis related but plan held given change to DNRCC and Palliative talks -he is now more alert, wanting treatment, and message sent to Pulm for re eval of pleurx placement, formal family meeting with palliative later today ESRD on HD MWF: HD as per nephro COPD and chronic hypoxic respiratory failure on 2L: home 2L Chronic HFrEF 45%: not acutely overloaded, volume management per HD CAD s/p CABG: pending palliative documentation today of family meeting would resume ASA, plavix, lipitor 20, low BPs therefore would hold anti hypertensives today and monitor HTN: as above DM2: controlled, monitor PPx: SCDs Code: DNRCC-A changed to DNR CC this admit, will follow with Palliative for addl changes Dispo: would be back to SNF Plan of Care Discussed with: patient Internal Medicine: Result - Labs CBC & Chem 7: 11/23/18 04:31 11/23/18 04:31 Labs: Short CBC 11/23/18 Range/Units 04:31 WBC 4.9 (4.3-11.1) K/mcL Hgb 11.1 L (12.9-16.9) g/dL Hct 36.6 L (37.5-50.1) % Plt Count 83 L (140-400) K/mcL BMP 11/23/18 04:31 Sodium 137 Potassium 4.1 Chloride 96 L Carbon Dioxide 30 H BUN 20 Creatinine 6.73 H Glucose 83 Calcium 7.7 L - ABG Interpretation ABG results: ABG ABG pH 7.37 pH Units (7.32-7.45) 11/18/18 16:30 ABG pCO2 56 mmHg (35-45) H 11/18/18 16:30 ABG pO2 62 mmHg (85-104) L 11/18/18 16:30 ABG O2 Saturation 90 % (95-98) L 11/18/18 16:30 PT/INR, D-dimer PT 14.6 Seconds (9.4-12.1) H 11/18/18 16:29 Consult Discharge Plan - Plan Referrals: David Strange DO [Primary Care Provider] - (1) Pneumonia Qualifiers: Pneumonia type: due to unspecified organism Laterality: unspecified late rality Lung location: unspecified part of lung Qualified Code(s): J18.9 - Pneumonia, unspecified organism
[2018-11-23] MEDS: Gabapentin 100 MG CAPSULE PO SCH ×3 (08:28→19:46)
--- NOTE | 2018-11-23 10:55 | Palliative Progress Note ---
Date of Encounter: 11/23/18 Time of Encounter: 09:00 - Assessment and plan (1) Dyspnea Current Visit: No Status: Acute Assessment and plan: Patient is asking for something to be done to improve his breathing. Discussed that he will need thoracentesis and possible pleurodesis, that can be painful. Patient is agreeable as he wants to get better. Roxanol in place, per nursing patient has been refusing it, he prefers ativan. will order Ativan PO 0.5mg q4hrs prn will change roxanol to prn. Qualifiers: Dyspnea type: shortness of breath Qualified Code(s): R06.02 - Shortness of breath; R06.00 - Dyspnea, unspecified; R06.01 - Orthopnea (2) Goals of care, counseling/discussion Current Visit: Yes Status: Acute Assessment and plan: Patient was alert and oriented today, no family members at the bedside. discussed GOC, patient stated he is aware he is very sick, but now he wants to continue HD, and get breathing better. He does not appear to have full insight of his complex medical condition, but he is hopeful for some improvement. Given his current mental status, I doubt that family would proceed with hospice care, unless any acute worsening happens. Recommend to re-consult pulmonary for management of pleural effusion, and continue acute care including HD. Case discussed with Dr. Cardoza. Palliative care will continue to follow. (3) Palliative care encounter Current Visit: Yes Status: Acute (4) ESRD (end stage renal disease) on dialysis Current Visit: No Status: Acute Assessment and plan: s/p HD yesterday, nephrology on the case. (5) Pleural effusion Current Visit: No Status: Acute Assessment and plan: Pulmonary re-consulted - Time Spent With Patient Total time spent is greater than 50% in coordination of care (as documented) at patient's floor/unit and/or counseling patient: - Subjective Interval history: Today patient was AAO x3, sitting on bed and eating breakfast. He is complaining of shortness of breath and asking for something to be done to imrove his breathing. He is aware that he had dialysis yesterday, and was able to tell me that his dialysis days are M,T,W. He appears to be having more appetite this morning. He denies pain, nausea, vomiting. - Constitutional Vitals: Abnormal lab results WBC 4.2 K/mcL (4.3-11.1) L 11/19/18 04:13 RBC 3.67 M/mcL (4.19-5.50) L 11/23/18 04:31 Hgb 11.1 g/dL (12.9-16.9) L 11/23/18 04:31 Hct 36.6 % (37.5-50.1) L 11/23/18 04:31 MCHC 30.3 g/dL (31.6-35.5) L 11/23/18 04:31 RDW 16.0 % (11.5-14.5) H 11/23/18 04:31 Plt Count 83 K/mcL (140-400) L 11/23/18 04:31 0.9 K/mcL (0.0-0.6) H 11/18/18 16:29 Immature Plt Fraction 6.4 % (1.1-6.1) H 11/19/18 04:13 PT 14.6 Seconds (9.4-12.1) H 11/18/18 16:29 ABG pCO2 56 mmHg (35-45) H 11/18/18 16:30 ABG pO2 62 mmHg (85-104) L 11/18/18 16:30 ABG HCO3 33 mEq/L (21-27) H 11/18/18 16:30 ABG Total CO2 34 mEq/L (20-26) H 11/18/18 16:30 ABG O2 Saturation 90 % (95-98) L 11/18/18 16:30 ABG Base Excess 6 mEq/L (-2 to 3) H 11/18/18 16:30 Sodium 135 mEq/L (136-145) L 11/19/18 04:13 Chloride 96 mEq/L (98-107) L 11/23/18 04:31 Carbon Dioxide 30 mEq/L (23-29) H 11/23/18 04:31 BUN 24 mg/dL (8-23) H 11/20/18 07:15 6.73 mg/dL (0.70-1.30) H 11/23/18 04:31 Est GFR ( Amer) 10 (> 60) L 11/23/18 04:31 Est GFR (Non-Af Amer) 8 (> 60) L 11/23/18 04:31 3 (6-26) L 11/23/18 04:31 Glucose 112 mg/dL (70-105) H 11/19/18 04:13 POC Glucose 132 mg/dL (70-99) H 11/22/18 20:23 Calcium 7.7 mg/dL (8.6-10.3) L 11/23/18 04:31 Phosphorus 2.3 mg/dL (2.7-4.5) L 11/18/18 16:29 106 Units/L (34-104) H 11/18/18 16:29 B-Natriuretic Peptide 1967 pg/mL (Less than 100) H 11/19/18 04:13 3.2 g/dL (3.5-5.7) L 11/18/18 16:29 4.7 g/dL (2.4-3.5) H 11/18/18 16:29 0.7 (1.1-2.2) L 11/18/18 16:29 5.16 ng/mL (0.00-0.15) H 11/19/18 15:40 Exam: General: awake, oriented x3 Head: Atraumatic, normocephalic. Face symmetric Thoracic: reduced R breath sounds, bilateral coarse breath sounds in lower lobes Cardio: Normal S1 and S2, regular rate and rhythm Abdomen: Soft, nontender, nondistended. Bowel sounds present. No rebound Extremities: Warm, well perfused. DP pulses 2+ b/l. No clubbing, cyanosis. Neuro: drowsy, moving all extremities, oriented x3, but unable to handle complex conversation. Palliative Quality Palliative Quality: Screen for Code Status: Yes, Screen for Goals of Care: Yes, Screen for Pain: Yes, If Pain Regimen Started, Initiate Bowel Regimen: Yes, Screen for Nausea/Vomitting: Yes Code Status: 11/18/18 17:42 Resuscitation Status: Active [RES] Routine Comment: Resuscitation Status: Full Code 11/20/18 14:30 CODE [Resuscitation Status: Active] [RES] Routine Comment: Resuscitation Status: DNR-Comfort Care - Labs CBC & Chem 7: 11/23/18 04:31 11/23/18 04:31 Labs: Laboratory Results - last 24 hr 11/21/18 11/21/1811/22/19 19:59 21:29 04:39 WBC RBC Hgb Hct MCV MCH MCHC RDW Plt Count MPV Immature Plt Fraction Sodium Potassium Chloride Carbon Dioxide BUN Creatinine Est GFR ( Amer) Est GFR (Non-Af Amer) BUN/Creatinine Ratio Glucose POC Glucose 78 109 H 101 H Calculated Osmolality Calcium 11/22/18 11/22/18 11/23/18 10:50 20:23 04:31 WBC 4.9 RBC 3.67 L Hgb 11.1 L Hct 36.6 L MCV 99.7 MCH 30.2 MCHC 30.3 L RDW 16.0 H Plt Count 83 L MPV 10.3 Immature Plt Fraction 4.3 Sodium Potassium Chloride Carbon Dioxide BUN Creatinine Est GFR ( Amer) Est GFR (Non-Af Amer) BUN/Creatinine Ratio Glucose POC Glucose 105 H 132 H Calculated Osmolality Calcium 11/23/18 11/23/18 04:31 07:32 WBC RBC Hgb Hct MCV MCH MCHC RDW Plt Count MPV Immature Plt Fraction Sodium 137 Potassium 4.1 Chloride 96 L Carbon Dioxide 30 H BUN 20 Creatinine 6.73 H Est GFR ( Amer) 10 L Est GFR (Non-Af Amer) 8 L BUN/Creatinine Ratio 3 L Glucose 83 POC Glucose 88 Calculated Osmolality 286 Calcium 7.7 L - ABG Interpretation ABG results: ABG ABG pH 7.37 pH Units (7.32-7.45) 11/18/18 16:30 ABG pCO2 56 mmHg (35-45) H 11/18/18 16:30 ABG pO2 62 mmHg (85-104) L 11/18/18 16:30 ABG O2 Saturation 90 % (95-98) L 11/18/18 16:30 PT/INR, D-dimer PT 14.6 Seconds (9.4-12.1) H 11/18/18 16:29 Palliative Scale - Palliative Performance Scale Palliative Performance Score: 40 % Consult Discharge Plan - Plan Referrals: David Strange DO [Primary Care Provider] -
[2018-11-23 13:22] LABS: INR 1.4; Prothrombin Time 15.4 Seconds (9.4-12.1)
--- NOTE | 2018-11-23 14:37 | Pulmonology Progress Note ---
Date of Encounter: 11/23/18 Subjective Principal diagnosis: Pleural Effusion Objective PUL Vital signs: Last Vital Signs Temp 98.1 F 11/23/18 11:19 Pulse 101 11/23/18 11:19 Resp 19 11/23/18 11:19 BP 138/74 11/23/18 11:19 Pulse Ox 90 11/23/18 11:19 Results - Laboratory Findings CBC and BMP: 11/23/18 04:31 11/23/18 04:31 ABG ABG pH 7.37 pH Units (7.32-7.45) 11/18/18 16:30 ABG pCO2 56 mmHg (35-45) H 11/18/18 16:30 ABG pO2 62 mmHg (85-104) L 11/18/18 16:30 ABG O2 Saturation 90 % (95-98) L 11/18/18 16:30 PT/INR, D-dimer PT 15.4 Seconds (9.4-12.1) H 11/23/18 12:27 Abnormal lab findings: Abnormal lab results WBC 4.2 K/mcL (4.3-11.1) L 11/19/18 04:13 RBC 3.67 M/mcL (4.19-5.50) L 11/23/18 04:31 Hgb 11.1 g/dL (12.9-16.9) L 11/23/18 04:31 Hct 36.6 % (37.5-50.1) L 11/23/18 04:31 MCHC 30.3 g/dL (31.6-35.5) L 11/23/18 04:31 RDW 16.0 % (11.5-14.5) H 11/23/18 04:31 Plt Count 83 K/mcL (140-400) L 11/23/18 04:31 0.9 K/mcL (0.0-0.6) H 11/18/18 16:29 Immature Plt Fraction 6.4 % (1.1-6.1) H 11/19/18 04:13 PT 15.4 Seconds (9.4-12.1) H 11/23/18 12:27 ABG pCO2 56 mmHg (35-45) H 11/18/18 16:30 ABG pO2 62 mmHg (85-104) L 11/18/18 16:30 ABG HCO3 33 mEq/L (21-27) H 11/18/18 16:30 ABG Total CO2 34 mEq/L (20-26) H 11/18/18 16:30 ABG O2 Saturation 90 % (95-98) L 11/18/18 16:30 ABG Base Excess 6 mEq/L (-2 to 3) H 11/18/18 16:30 Sodium 135 mEq/L (136-145) L 11/19/18 04:13 Chloride 96 mEq/L (98-107) L 11/23/18 04:31 Carbon Dioxide 30 mEq/L (23-29) H 11/23/18 04:31 BUN 24 mg/dL (8-23) H 11/20/18 07:15 6.73 mg/dL (0.70-1.30) H 11/23/18 04:31 Est GFR ( Amer) 10 (> 60) L 11/23/18 04:31 Est GFR (Non-Af Amer) 8 (> 60) L 11/23/18 04:31 3 (6-26) L 11/23/18 04:31 Glucose 112 mg/dL (70-105) H 11/19/18 04:13 POC Glucose 132 mg/dL (70-99) H 11/22/18 20:23 Calcium 7.7 mg/dL (8.6-10.3) L 11/23/18 04:31 Phosphorus 2.3 mg/dL (2.7-4.5) L 11/18/18 16:29 106 Units/L (34-104) H 11/18/18 16:29 B-Natriuretic Peptide 1967 pg/mL (Less than 100) H 11/19/18 04:13 3.2 g/dL (3.5-5.7) L 11/18/18 16:29 4.7 g/dL (2.4-3.5) H 11/18/18 16:29 0.7 (1.1-2.2) L 11/18/18 16:29 5.16 ng/mL (0.00-0.15) H 11/19/18 15:40 - Clinical Findings Intake & Output: Intake & Output 11/22/18 11/23/18 11/23/18 23:59 07:59 15:59 Output Total 3500 / 3500 0 / 0 Balance -3500 / -2760 0 / 0 Weight 95 kg Consult Discharge Plan - Plan Referrals: David Strange DO [Primary Care Provider] -
--- NOTE | 2018-11-23 15:15 | Event Note ---
Date of Encounter: 11/23/18 Time of Encounter: 14:00 Pleurx catheter was arranged tomorrow with 12 pm .
[2018-11-23] MEDS: Calcium Acetate 667 MG CAPSULE PO SCH (16:17)
[2018-11-23] MEDS ORDERED: Furosemide 40 MG/4 ML VIAL IVP ONE (17:38)
[2018-11-23] MEDS: Venlafaxine XR (24 HR) 150 MG CAP.ER.24H PO SCH (19:45)
[2018-11-23] MEDS ORDERED: Gabapentin 100 MG CAPSULE PO SCH (21:00)
--- NOTE | 2018-11-23 22:53 | Nephrology Progress Note ---
Date of Encounter: 11/23/18 Time of Encounter: 12:00 - Assessment and Plan (1) ESRD (end stage renal disease) on dialysis Current Visit: Yes Status: Chronic s/p HD yesterday, next HD planned for tomorrow Lytes stable nepro with meals (2) Pleural effusion Current Visit: No Status: Acute Pulmonary re-eval for pleurodesis (3) Pneumonia Current Visit: Yes Status: Suspected Per primary Qualifiers: Pneumonia type: due to unspecified organism Laterality: unspecified laterality Lung location: unspecified part of lung Qualified Code(s): J18.9 - Pneumonia, unspecified organism (4) Altered mental status Current Visit: No Status: Acute Per primary; waxes and wanes. Not uremic Qualifiers: Qualified Code(s): R41.82 - Altered mental status, unspecified (5) Anemia Current Visit: No Status: Chronic Hgb improved at 11.1, will monitor Qualifiers: Anemia type: due to chronic kidney disease Chronic kidney disease stage: on chronic dialysis Qualified Code(s): N18.6 - End stage renal disease; D63.1 - Anemia in chronic kidney disease; Z99.2 - Dependence on renal dialysis Subjective Principal diagnosis: Pleural Effusion Interval history: Pt seen and examined more awake with family at bedside, still complaining of SOB and difficulty coughing. s/p HD yesterday without any issues. Per family, ate most of breakfast today. Objective - Vital Signs Vital signs: Vital Signs Temp Pulse Resp BP Pulse Ox 11/23/18 21:37 98.8 F 100 19 162/81 93 11/23/18 19:46 93 11/23/18 15:35 99.3 F 102 19 130/69 93 11/23/18 11:19 98.1 F 101 19 138/74 90 11/23/18 08:33 94 11/23/18 07:48 98.0 F 97 18 114/71 94 11/23/18 03:39 97.7 F 106 17 99/54 92 11/23/18 00:02 97.7 F 94 17 115/67 90 Intake and Output 11/23/18 11/23/18 11/23/18 07:59 15:59 23:59 Intake Total 240 / 240 Output Total 0 / 0 Balance 0 / 240 240 / 240 Intake: Oral 240 / 240 Output: Urine 0 / 0 Other: Weight 95 kg Blood Glucose* 88 178 Patient Weight 11/23/18 23:59 Weight 95 kg - General Appearance General appearance: Present: chronically ill, frail EENT: Present: ATNC, mucous membranes moist Neck: Present: no JVD, supple Additional Comments: Decreased BS R>L Cardiology: Present: no edema, normal S1, normal S2 Dialysis Vascular Access: Arteriovenous Fistula thrill: Yes bruit: Yes Gastrointestinal: Present: no tenderness, no guarding Integumentary: Present: warm and dry Neurologic: Present: alert and oriented x3 Musculoskeletal: Present: no deformities Psychiatric: Present: cooperative - Lab 11/23/18 04:31 11/23/18 04:31 Consult Discharge Plan - Plan Referrals: David Strange DO [Primary Care Provider] -
[2018-11-24 05:46] LABS: Basophils % 0.4 %; Immature Granulocytes % 0.2 % (0-4); Mean Corpuscular Hemoglobin 30.1 pg (28.0-33.3)
[2018-11-24 05:48] LABS: Eosinophils # 0.8 K/mcL (0.0-0.6); Eosinophils % 17.3 %; Hematocrit 32.9 % (37.5-50.1); Hemoglobin 10.1 g/dL (12.9-16.9); Immature Platelets 3.2 % (1.1-6.1); Lymphocytes # 1.1 K/mcL (0.6-4.6); Lymphocytes % 23.6 %; Mean Corpuscular HGB Conc 30.7 g/dL (31.6-35.5); Mean Corpuscular Volume 97.9 fL (83.0-100.0); Mean Platelet Volume 9.5 fL (9.4-12.4); Monocytes # 0.6 K/mcL (0.0-1.3); Red Blood Count 3.36 M/mcL (4.19-5.50); Red Cell Distribution Width 15.8 % (11.5-14.5); Segmented Neutrophils % 44.5 %; White Blood Count 4.6 K/mcL (4.3-11.1)
[2018-11-24 05:56] LABS: Neutrophils # 2.1 K/mcL (1.6-8.9); Platelet Count 73 K/mcL (140-400)
[2018-11-24 06:08] LABS: Calcium 7.7 mg/dL (8.6-10.3); Magnesium 2.1 mg/dL (1.6-2.6); Potassium 4.2 mEq/L (3.5-5.1)
--- NOTE | 2018-11-24 07:59 | Internal Med Progress Note ---
Hospitalist Progress Note - Encounter Date of Encounter: 11/24/18 Time of Encounter: 08:50 - Subjective Interval History: awake, staff at bedside helping bath patient. He is alert and oriented answering all questions appropriately. He has sob with orthopnea. He is aware of pleurx being placed today and eager to have it done. denies wheezing, cough or fevers, chills. no cp, pressure or palpitations. - Exam Vitals: Temp Pulse Resp BP Pulse Ox 97.9 F 82 19 126/78 96 11/24/18 07:13 11/24/18 07:13 11/24/18 07:13 11/24/18 07:13 11/24/18 07:13 Exam: gen- alert, awake,appears stated age eyes- pupils equal round , eom intact cv- tachy rate and reg rhythm, normal s1,s2, no le edema, no jvd lungs- course left base, diminished right base breath sounds , no wheezing, normal resp effort on o2 nc abd- soft, non tender, non distended, + bs neuro- AAOxperson, place, CN grossly intact - Assessment and Plan (1) Pneumonia Current Visit: Yes Status: Suspected (2) ESRD (end stage renal disease) on dialysis Current Visit: Yes Status: Chronic (3) Metabolic encephalopathy Current Visit: No Status: Resolved (4) Pleural effusion Current Visit: No Status: Acute - Summary of Assessment and Plan Summary of Assessment and Plan: Ike Esquivel is a 78 M w hx ESRD on HD MWF, HFrEF 45%, CAD s/p CABG, COPD on 2L, HTN, DM2, recurrent pleural effusion, liver cirrhosis who p/w SOB, confusion, hypoxia, CXR showing bibasilar infiltrates and recurrent R>L pleural effusions. Admitted for possible pneumonia causing acute on chronic hypoxic respiratory failure, recurrent liver cirrhosis related pleural effusion, as well as acute metabolic encephalopathy. Acute metabolic encephalopathy: resolved with abx treatment and dialysis Possible Pna, no organism identified CT equivocal, CXR suggesting infiltrates - he received IV abx treatment earlier this course, has been stable and cont to improve off abx, no further abx Bilateral R>L pleural effusions: originally planning for PleurX given this is liver cirrhosis related but plan held given change to DNRCC and Palliative talks -he is now more alert, wanting treatment, Pulm arranged for pleurx placement today, spoke wiht his this morning whom was aware of plan and agrees ESRD on HD MWF: HD as per nephro COPD and chronic hypoxic respiratory failure on 2L: home 2L Chronic HFrEF 45%: not acutely overloaded, volume management per HD CAD s/p CABG: ASA, plavix, lipitor 20, intermittently low BPs therefore would cont to hold full dose of home anti hypertensives, given his tachycardia begin lopressor 25 mg daily at 1600 (home dose is 200 mg) and monitor for effect HTN: as above DM2: controlled, monitor PPx: SCDs Code: DNRCC-A changed to DNR CC this admit, will follow with Palliative for addl changes Dispo: would be back to SNF Plan of Care Discussed with: patient Internal Medicine: Result - Labs CBC & Chem 7: 11/24/18 05:18 11/24/18 05:18 Labs: Short CBC 11/24/18 Range/Units 05:18 WBC 4.6 (4.3-11.1) K/mcL Hgb 10.1 L (12.9-16.9) g/dL Hct 32.9 L (37.5-50.1) % Plt Count 73 L (140-400) K/mcL Neutrophils # 2.1 (1.6-8.9) K/mcL BMP 11/24/18 05:18 Sodium 136 Potassium 4.2 Chloride 96 L Carbon Dioxide 28 BUN 25 H Creatinine 8.39 H Glucose 106 H Calcium 7.7 L - ABG Interpretation ABG results: ABG ABG pH 7.37 pH Units (7.32-7.45) 11/18/18 16:30 ABG pCO2 56 mmHg (35-45) H 11/18/18 16:30 ABG pO2 62 mmHg (85-104) L 11/18/18 16:30 ABG O2 Saturation 90 % (95-98) L 11/18/18 16:30 PT/INR, D-dimer PT 15.4 Seconds (9.4-12.1) H 11/23/18 12:27 Consult Discharge Plan - Plan Referrals: David Strange DO [Primary Care Provider] - (1) Pneumonia Qualifiers: Pneumonia type: due to unspecified organism Laterality: unspecified laterality Lung location: unspecified part of lung Qualified Code(s): J18.9 - Pneumonia, unspecified organism
[2018-11-24] MEDS: Aspirin Enteric Coated 81 MG Tablet PO SCH (08:13)
[2018-11-24] MEDS: Calcium Acetate 667 MG CAPSULE PO SCH ×3 (08:16→17:35)
[2018-11-24] MEDS: *HR* LORazepam 2 MG/ML VIAL IVP PRN (08:21)
[2018-11-24] MEDS: Gabapentin 100 MG CAPSULE PO SCH ×3 (08:21→21:29)
[2018-11-24] MEDS ORDERED: 0.9 % Sodium Chloride 250 ML IVC PRN (09:09)
[2018-11-24] MEDS ORDERED: 0.9 % Sodium Chloride 1,000 ML ONE (11:57)
--- NOTE | 2018-11-24 13:26 | Event Note ---
Date of Encounter: 11/24/18 Time of Encounter: 11:00 Patient today was AAOx3, in no acute distress. Looking forward to the thoracentesis and the pleurx cath placement today, he was able to explain the procedure well. Discussed GOC with patient, his goal is to improve and go to rehab again, with the hope of eventually returning home. Discussed with him the choices made by his family while he was unable to contribute, namely DNRCC and confort care. pt confirmed that he has discussed with and children and would not want to be kept alive if he was not expected to recover. However at this time, he feels better and wants to continue full treatment. Discussed code status, patient wants no resuscitation or intubation. Since at this time he still wants treatment, code status will be changed to DNRCCA and DNI. Patient appears stable, and goals are clear, palliative care will sign off. Please reconsult prn.
--- NOTE | 2018-11-24 14:50 | Event Note ---
Date of Encounter: 11/24/18 Time of Encounter: 14:35 Notified by [facility] of moderate pneumothorax on CXR post pleurx cath. I have d/w Dr Zazueta and RN. He will be to bedside to drain fluid. RN to get chest tube chamber ready for him. Will cont to monitor and will follow up further pulm recs
--- NOTE | 2018-11-24 17:30 | Nephrology Progress Note ---
Date of Encounter: 11/24/18 Time of Encounter: 12:00 - Assessment and Plan (1) ESRD (end stage renal disease) on dialysis Current Visit: Yes Status: Chronic will hold HD till tomorrow due to having pleurodesis today and with possible complications, it would actually return pt to this usual HD schedule Lytes stable nepro with meals (2) Pleural effusion Current Visit: No Status: Acute pleurodesis per pulmonary (3) Pneumonia Current Visit: Yes Status: Suspected Per primary Qualifiers: Pneumonia type: due to unspecified organism Laterality: unspecified lat erality Lung location: unspecified part of lung Qualified Code(s): J18.9 - Pneumonia, unspecified organism (4) Altered mental status Current Visit: No Status: Acute Per primary; mostly resolved Qualifiers: Qualified Code(s): R41.82 - Altered mental status, unspecified (5) Anemia Current Visit: No Status: Chronic Hgb stable at 10.1, will monitor Qualifiers: Anemia type: due to chronic kidney disease Chronic kidney disease stage: on chronic dialysis Qualified Code(s): N18.6 - End stage renal disease; D63.1 - Anemia in chronic kidney disease; Z99.2 - Dependence on renal dialysis Subjective Principal diagnosis: Pleural Effusion Interval history: Pt seen and examined HD delayed today for pleurodesis, Will resume HD today or tomorrow which is actual scheduled today Objective - Vital Signs Vital signs: Vital Signs Temp Pulse Resp BP Pulse Ox 11/24/18 15:50 97.8 F 90 16 122/71 90 11/24/18 15:15 98.5 F 89 20 103/65 11/24/18 13:06 98.7 F 122 20 149/83 93 11/24/18 13:05 98.7 F 122 148 141/90 96 11/24/18 10:53 97.9 F 95 19 102/62 97 11/24/18 08:30 97 11/24/18 08:00 98.7 F 123 32 150/78 93 11/24/18 07:13 97.9 F 82 19 126/78 96 11/24/18 06:02 149/77 11/24/18 05:44 97.9 F 126 19 148/98 98 11/23/18 23:50 97.8 F 125 19 144/79 95 11/23/18 21:37 98.8 F 100 19 162/81 93 11/23/18 19:46 93 Intake and Output 11/24/18 11/24/18 11/24/18 07:59 15:59 23:59 Intake Total 0 / 0 Output Total 0 / 0 Balance 0 / 0 Intake: Oral 0 / 0 Output: Urine 0 / 0 Other: Blood Glucose* 135 90 - General Appearance General appearance: Present: chronically ill, frail EENT: Present: ATNC, mucous membranes moist Neck: Present: no JVD, supple Additional Comments: decreased BS bases bilat R>L Cardiology: Present: no edema, normal S1, normal S2 Dialysis Vascular Access: Arteriovenous Fistula thrill: Yes bruit: Yes Gastrointestinal: Present: no tenderness, no guarding Integumentary: Present: warm and dry Neurologic: Present: no focal deficit Musculoskeletal: Present: no deformities Psychiatric: Present: mood/affect appropriate, cooperative - Lab 11/24/18 05:18 11/24/18 05:18 Most recent lab results 11/24/18 05:18 Calcium 7.7 L Magnesium 2.1 Consult Discharge Plan - Plan Referrals: David Strange DO [Primary Care Provider] -
[2018-11-24] MEDS: Metoprolol XL (24 HR) Succ 25 MG TAB.ER.24H PO SCH (17:35)
[2018-11-24] MEDS: traZODone 50 MG TABLET PO PRN (21:29)
[2018-11-24] MEDS: Venlafaxine XR (24 HR) 150 MG CAP.ER.24H PO SCH (21:30)
[2018-11-24] MEDS: Acetaminophen 325 MG TABLET PO PRN (21:30)
[2018-11-25 06:07] LABS: Mean Corpuscular HGB Conc 30.4 g/dL (31.6-35.5)
[2018-11-25 06:09] LABS: Hematocrit 35.2 % (37.5-50.1); Hemoglobin 10.7 g/dL (12.9-16.9); Immature Platelets 4.1 % (1.1-6.1); Mean Corpuscular Hemoglobin 29.5 pg (28.0-33.3); Mean Platelet Volume 9.7 fL (9.4-12.4); Red Blood Count 3.63 M/mcL (4.19-5.50); Red Cell Distribution Width 15.8 % (11.5-14.5); White Blood Count 5.5 K/mcL (4.3-11.1)
[2018-11-25 06:29] LABS: Calcium 7.8 mg/dL (8.6-10.3)
--- NOTE | 2018-11-25 07:40 | Internal Med Progress Note ---
Hospitalist Progress Note - Encounter Date of Encounter: 11/25/18 Time of Encounter: 10:30 - Subjective Interval History: pt see in in HD. completely alert and oriented. sob much improved with cath/chest tube yesterday. no chest pain pressure or palpitations. no fevers or chills. - Exam Vitals: Temp Pulse Resp BP Pulse Ox 98.9 F 88 18 104/57 97 11/25/18 07:25 11/25/18 07:25 11/25/18 07:25 11/25/18 07:25 11/25/18 07:25 Exam: gen- alert, awake,appears stated age cv- reg rate and reg rhythm, normal s1,s2, no le edema lungs- ant/lat pastor ctabl, no wheezing, normal resp effort on o2 nc,chest tube to suction in place draining clear yellow fluid abd- soft, non tender, non distended, neuro- AAOxperson, place, CN grossly intact - Assessment and Plan (1) Pneumonia Current Visit: Yes Status: Suspected (2) ESRD (end stage renal disease) on dialysis Current Visit: Yes Status: Chronic (3) Pleural effusion Current Visit: No Status: Acute - Summary of Assessment and Plan Summary of Assessment and Plan: Ike Esquivel is a 78 M w hx ESRD on HD MWF, HFrEF 45%, CAD s/p CABG, COPD on 2L, HTN, DM2, recurrent pleural effusion, liver cirrhosis who p/w SOB, confusion, hypoxia, CXR showing bibasilar infiltrates and recurrent R>L pleural effusions. Admitted for possible pneumonia causing acute on chronic hypoxic respiratory failure, recurrent liver cirrhosis related pleural effusion, as well as acute metabolic encephalopathy. Acute metabolic encephalopathy: resolved with abx treatment and dialysis Possible Pna, no organism identified CT equivocal, CXR suggesting infiltrates - he received IV abx treatment earlier this course, has been stable and cont to improve off abx, no further abx Bilateral R>L pleural effusions: pleurx placement 11/24, post procedureal pneumothorax -pulm managing, chest tube to suction in place -CXR this morning reviewed and tiny right apical pneumothorax -will cont to follow pulm recs ESRD on HD MWF: HD as per nephro Acute on Chronic hypoxic respiratory failure 2/2 above on 2L @ home-treatment as above, currently requiring 3-4L NC Chronic HFrEF 45%: volume management per HD CAD s/p CABG: ASA, plavix, lipitor 20, intermittently low BPs therefore would cont to hold full dose of home anti hypertensives, given his tachycardia began lopressor 25 mg daily at 1600 (home dose is 200 mg) and HR now normal, cont to monitor HTN: as above DM2: controlled, monitor PPx: SCDs Code: DNRCC-A changed to DNR CC this admit, will follow with Palliative for addl changes Dispo: would be back to [facility] Internal Medicine: Result - Labs CBC & Chem 7: 11/25/18 05:52 11/25/18 05:52 Labs: Short CBC 11/25/18 Range/Units 05:52 WBC 5.5 (4.3-11.1) K/mcL Hgb 10.7 L (12.9-16.9) g/dL Hct 35.2 L (37.5-50.1) % Plt Count 67 L (140-400) K/mcL BMP 11/25/18 05:52 Sodium 137 Potassium 5.0 Chloride 96 L Carbon Dioxide 30 H BUN 32 H Creatinine 9.43 H Glucose 118 H Calcium 7.8 L - ABG Interpretation ABG results: ABG ABG pH 7.37 pH Units (7.32-7.45) 11/18/18 16:30 ABG pCO2 56 mmHg (35-45) H 11/18/18 16:30 ABG pO2 62 mmHg (85-104) L 11/18/18 16:30 ABG O2 Saturation 90 % (95-98) L 11/18/18 16:30 PT/INR, D-dimer PT 15.4 Seconds (9.4-12.1) H 11/23/18 12:27 - Impressions Impressions Chest X-Ray 11/24/18 13:41 IMPRESSION: 1. Bilateral airspace opacities similar to prior examination may represent multifocal pneumonia or pulmonary edema. 2. Small to moderate bilateral pleural effusions, slightly improved since prior examination. 3. Moderate size right basilar pneumothorax. Findings were discussed with the nurseBlanca at 2:17 pm on 11/24/2018. D/ / Beatriz Hitchcock MD / Beatriz Hitchcock MD Interpreting Provider: Beatriz Hitchcock MD Chest X-Ray 11/24/18 16:30 IMPRESSION: 1. Right chest tube remains present. Overall, stable size of moderate size right pneumothorax. 2. Right more than left pleural effusion present. 3. Pulmonary edema. The findings were sent to the Radiology Results Communication Center at 4:59 pm on 11/24/2018to be communicated to a licensed caregiver. D/ / Felice Butler MD / Felice Butler MD Interpreting Provider: Felice Butler MD Chest X-Ray 11/24/18 21:32 IMPRESSION: Interval decreased amount fluid and gas within the right pleural space. D/ / Loree Asher Cha, MD / Loree Asher Cha, MD Interpreting Provider: Loree Asher Cha, MD Chest X-Ray 11/25/18 07:00 IMPRESSION: Decreased size of a tiny right apical pneumothorax, with indwelling chest tube noted. Increased vascular congestion and prominent interstitial change which could be related to mild pulmonary edema. Small right-sided pleural effusion and possible trace left effusion. D/ / César Marin MD / César Marin MD Interpreting Provider: César Marin MD Consult Discharge Plan - Plan Referrals: David Strange DO [Primary Care Provider] - (1) Pneumonia Qualifiers: Pneumonia type: due to unspecified organism Laterality: unspecified laterality Lung location: unspecified part of lung Qualified Code(s): J18.9 - Pneumonia, unspecified organism
[2018-11-25] MEDS: *HR* LORazepam 2 MG/ML VIAL IVP PRN (08:10)
[2018-11-25] MEDS: Gabapentin 100 MG CAPSULE PO SCH ×3 (08:11→20:07)
[2018-11-25] MEDS: Acetaminophen 325 MG TABLET PO PRN ×2 (08:11→17:03)
[2018-11-25] MEDS: Aspirin Enteric Coated 81 MG Tablet PO SCH (08:11)
[2018-11-25] MEDS: Calcium Acetate 667 MG CAPSULE PO SCH ×3 (08:11→15:51)
[2018-11-25] MEDS ORDERED: 0.9 % Sodium Chloride 250 ML IVC PRN (08:13)
--- NOTE | 2018-11-25 12:14 | Nephrology Progress Note ---
Date of Encounter: 11/25/18 Time of Encounter: 10:30 - Assessment and Plan (1) ESRD (end stage renal disease) on dialysis Current Visit: No Status: Chronic Dialysis ordered for today. He had c/o itching and I rec better dietary phos control. Will help also rec syptomatic care with prn hydroxyzine. Next HD is due on Wednesday, and I'll be available this weekended if needed. Thank you. (2) Anemia Current Visit: No Status: Chronic Goal hemoglobin is 10-11. We will monitor. 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 I recommend that he follow a renal diet that is low in phosphorus. By maintaining a phosphorus level that is within normal limits, this may also help reduce his generalized itch. Subjective Principal diagnosis: Pleural Effusion Interval history: The patient was seen and examined while on hemodialysis earlier in the day. He complains of generalized itch. He did not affirm changes in laundry detergents, and described the onset of several weeks. He did not know of any improving or worsening factors. Objective - Vital Signs Vital signs: Vital Signs Temp Pulse Resp BP Pulse Ox 11/25/18 10:15 98/59 11/25/18 10:00 93/65 11/25/18 09:45 117/70 11/25/18 09:30 110/72 11/25/18 09:15 99.1 F 20 108/68 11/25/18 07:25 98.9 F 88 18 104/57 97 11/25/18 05:19 97.9 F 84 17 126/69 97 11/25/18 00:36 98.6 F 91 18 131/88 100 11/24/18 20:50 98.3 F 101 18 161/99 93 11/24/18 15:50 97.8 F 90 16 122/71 90 11/24/18 15:15 98.5 F 89 20 103/65 11/24/18 13:06 98.7 F 122 20 149/83 93 11/24/18 13:05 98.7 F 122 148 141/90 96 Intake and Output 11/24/18 11/25/18 11/25/18 23:59 07:59 15:59 Intake Total 485 / 485 840 / 840 Output Total 800 / 800 1200 / 1200 Balance -315 / -315 -360 / -360 Intake: Oral 485 / 485 240 / 240 Intake, Rinseback and Flushes 600 / 600 Output: Chest Tube Drainage 800 / 800 1200 / 1200 Right lateral back 800 / 800 1200 / 1200 Other: Meal Dinner Breakfast Percent of Meal Consumed 5% 60% Weight 95.5 kg Blood Glucose* 78 118 110 Hemodialysis Net Fluid Removed 957 (mL) Patient Weight 11/25/18 23:59 Weight 95.5 kg - General Appearance General appearance: Present: well-developed, chronically ill, frail EENT: Present: mucous membranes dry Respiratory: Present: clear Cardiology: Present: holosystolic murmur, no edema, regular rate, regular rhythm Dialysis Vascular Access: Arteriovenous Fistula (left upper extremity) thrill: Yes bruit: Yes Integumentary: Present: warm and dry Neurologic: Present: no focal deficit, no asterixis, alert and oriented x3 Musculoskeletal: Present: no clubbing Psychiatric: Present: mood/affect appropriate, cooperative - Lab 11/26/18 05:51 11/26/18 05:51 Most recent lab results 11/25/18 05:52 Calcium 7.8 L Consult Discharge Plan - Plan Referrals: David Strange DO [Primary Care Provider] -
[2018-11-25] MEDS ORDERED: 0.9 % Sodium Chloride 1,000 ML ONE (12:23)
[2018-11-25] MEDS: Metoprolol XL (24 HR) Succ 25 MG TAB.ER.24H PO SCH (15:52)
[2018-11-25] MEDS: Morphine Sulfate Oral CONC 10 MG/0.5 ML ORAL.SYG SL PRN (19:41)
[2018-11-25] MEDS: Venlafaxine XR (24 HR) 150 MG CAP.ER.24H PO SCH (20:07)
[2018-11-25] MEDS: traZODone 50 MG TABLET PO PRN (20:09)
[2018-11-26] MEDS: Morphine Sulfate Oral CONC 10 MG/0.5 ML ORAL.SYG SL PRN (06:24)
[2018-11-26 06:32] LABS: Hemoglobin 11.1 g/dL (12.9-16.9); Red Cell Distribution Width 15.3 % (11.5-14.5)
[2018-11-26 06:34] LABS: Hematocrit 35.7 % (37.5-50.1); Immature Platelets 4.2 % (1.1-6.1); Mean Corpuscular HGB Conc 31.1 g/dL (31.6-35.5); Mean Corpuscular Hemoglobin 30.6 pg (28.0-33.3); Mean Corpuscular Volume 98.3 fL (83.0-100.0); Mean Platelet Volume 10.4 fL (9.4-12.4); Red Blood Count 3.63 M/mcL (4.19-5.50); White Blood Count 4.9 K/mcL (4.3-11.1)
[2018-11-26 06:51] LABS: Calcium 8.3 mg/dL (8.6-10.3); Potassium 4.3 mEq/L (3.5-5.1)
--- NOTE | 2018-11-26 07:34 | Internal Med Progress Note ---
Hospitalist Progress Note - Encounter Date of Encounter: 11/26/18 Time of Encounter: 11:00 - Subjective Interval History: awake, no family present. He is feeling overall greatly improved. no sob on o2. denies wheezing, + cough with crwoell sputum. no fevers or chills. no pain RN to bedside and updated me regarding chest tube instructions from pulm. He now has drained >500 cc fluid and per pulm pleurx in place and no further intervention required. - Exam Vitals: Temp Pulse Resp BP Pulse Ox 97.6 F 84 16 148/72 95 11/26/18 07:18 11/26/18 07:18 11/26/18 07:18 11/26/18 07:18 11/26/18 07:18 Exam: gen- alert, awake,appears stated age cv- reg rate and reg rhythm, normal s1,s2, no le edema lungs- ant/lat pastor ctabl, no wheezing, normal resp effort on o2 nc, abd- soft, non tender neuro- AAOxperson, place, CN grossly intact - Assessment and Plan (1) Pneumonia Current Visit: Yes Status: Suspected (2) ESRD (end stage renal disease) on dialysis Current Visit: Yes Status: Chronic (3) Pleural effusion Current Visit: No Status: Acute - Summary of Assessment and Plan Summary of Assessment and Plan: Ike Esquivel is a 78 M w hx ESRD on HD MWF, HFrEF 45%, CAD s/p CABG, COPD on 2L, HTN, DM2, recurrent pleural effusion, liver cirrhosis who p/w SOB, confusion, hypoxia, CXR showing bibasilar infiltrates and recurrent R>L pleural effusions. Admitted for possible pneumonia causing acute on chronic hypoxic respiratory failure, recurrent liver cirrhosis related pleural effusion, as well as acute metabolic encephalopathy. Acute metabolic encephalopathy: resolved with abx treatment and dialysis Possible Pna, no organism identified CT equivocal, CXR suggesting infiltrates - he received IV abx treatment earlier this course, has been stable and cont to improve off abx, no further abx Bilateral R>L pleural effusions: pleurx placement 11/24, post procedureal pneumothorax -pulm managing, chest tube now gone, pleurx inplace -will check AM CXR and d/w pulm as needed ESRD on HD MWF: HD as per nephro, next HD tuesday 11/28 Acute on Chronic hypoxic respiratory failure 2/2 above on 2L @ home-treatment as above, currently requiring 3-4L NC Chronic HFrEF 45%: volume management per HD CAD s/p CABG: ASA, plavix, lipitor 20, intermittently low BPs therefore would cont to hold full dose of home anti hypertensives, given his tachycardia began lopressor 25 mg daily at 1600 (home dose is 200 mg) and HR now normal, cont to monitor HTN: as above DM2: controlled, monitor PPx: SCDs Code: DNRCC-A changed to DNR CC this admit, will follow with Palliative for addl changes Dispo: would be back to Internal Medicine: Result - Labs CBC & Chem 7: 11/26/18 05:51 11/26/18 05:51 Labs: Short CBC 11/26/18 Range/Units 05:51 WBC 4.9 (4.3-11.1) K/mcL Hgb 11.1 L (12.9-16.9) g/dL Hct 35.7 L (37.5-50.1) % Plt Count 66 L (140-400) K/mcL BMP 11/26/18 05:51 Sodium 135 L Potassium 4.3 Chloride 97 L Carbon Dioxide 29 BUN 18 Creatinine 5.89 H Glucose 106 H Calcium 8.3 L - ABG Interpretation ABG results: ABG ABG pH 7.37 pH Units (7.32-7.45) 11/18/18 16:30 ABG pCO2 56 mmHg (35-45) H 11/18/18 16:30 ABG pO2 62 mmHg (85-104) L 11/18/18 16:30 ABG O2 Saturation 90 % (95-98) L 11/18/18 16:30 PT/INR, D-dimer PT 15.4 Seconds (9.4-12.1) H 11/23/18 12:27 Consult Discharge Plan - Plan Referrals: David Strange DO [Primary Care Provider] - (1) Pneumonia Qualifiers: Pneumonia type: due to unspecified organism Laterality: unspecified latera lity Lung location: unspecified part of lung Qualified Code(s): J18.9 - Pneumonia, unspecified organism
[2018-11-26] MEDS: Aspirin Enteric Coated 81 MG Tablet PO SCH (08:11)
[2018-11-26] MEDS: Gabapentin 100 MG CAPSULE PO SCH ×3 (08:11→20:01)
[2018-11-26] MEDS: Calcium Acetate 667 MG CAPSULE PO SCH ×3 (08:11→16:11)
[2018-11-26] MEDS: Acetaminophen 325 MG TABLET PO PRN (12:03)
[2018-11-26] MEDS: Metoprolol XL (24 HR) Succ 25 MG TAB.ER.24H PO SCH (16:11)
[2018-11-26] MEDS: Venlafaxine XR (24 HR) 150 MG CAP.ER.24H PO SCH (20:01)
[2018-11-27] MEDS: traZODone 50 MG TABLET PO PRN (00:44)
[2018-11-27 00:47] LABS: Red Cell Distribution Width 15.4 % (11.5-14.5)
[2018-11-27 00:49] LABS: Hematocrit 38.7 % (37.5-50.1); Immature Platelets 4.2 % (1.1-6.1); Mean Corpuscular Hemoglobin 29.9 pg (28.0-33.3); Mean Corpuscular Volume 96.3 fL (83.0-100.0); Mean Platelet Volume 10.3 fL (9.4-12.4); Red Blood Count 4.02 M/mcL (4.19-5.50)
[2018-11-27 01:05] LABS: Calcium 8.7 mg/dL (8.6-10.3); Potassium 4.4 mEq/L (3.5-5.1)
[2018-11-27] MEDS: Acetaminophen 325 MG TABLET PO PRN (04:06)
[2018-11-27] MEDS: Calcium Acetate 667 MG CAPSULE PO SCH ×2 (08:00→11:33)
[2018-11-27] MEDS: Aspirin Enteric Coated 81 MG Tablet PO SCH (08:00)
[2018-11-27] MEDS: Gabapentin 100 MG CAPSULE PO SCH (08:00)
--- NOTE | 2018-11-27 10:42 | Discharge Summary ---
- NOTES TO OUTPATIENT PROVIDER Notes to Outpatient Provider: Dialysis MWF. Follow up with Nephrology as needed. Follow up with PCP/GI as needed for liver cirrhosis. Continue oxygen NC. New pleurx catheter with routine care for recurrent pleural effusions. Metoprolol dose reduced and Imdur stopped due to low normotensive BPs. Further adjustments/ reinitiation outpt Orders not resulted at time of discharge: Pending orders 11/28/18 04:00 BMP [Basic Metabolic Panel] AM 0400 Magnesium AM 0400 Date of Encounter: 11/27/18 Time of Encounter: 10:00 - Discharge Diagnosis (1) Pneumonia Priority: Primary Status: Suspected Assessment and Plan: Possible Pna, no organism identified CT equivocal, CXR suggesting infiltrates - he received IV abx treatment, has been stable and cont to improve off abx, no further abx Qualifiers: Pneumonia type: due to unspecified organism Laterality: unspecified laterality Lung location: unspecified part of lung Qualified Code(s): J18.9 - Pneumonia, unspecified organism (2) ESRD (end stage renal disease) on dialysis Priority: Secondary Status: Chronic Assessment and Plan: next HD Wednesday11/28/18 (3) Pleural effusion Priority: Secondary Status: Acute Assessment and Plan: Bilateral R>L pleural effusions: pleurx placement 11/24, post procedureal pneumothorax -pulm managed, chest tube now gone, pleurx in place, repeat CXR improved effusions, stable tiny right apical pneumothorax -as d/w Pulm, routine pleurx care and no further interventions required Hospital course: Mr. Esquivel is a 78 year old male w hx ESRD on HD MWF, HFrEF 45%, CAD s/p CABG, COPD on 2L, HTN, DM2, recurrent pleural effusion, liver cirrhosis who p/w SOB, confusion, hypoxia, CXR showing bibasilar infiltrates and recurrent R>L pleural effusions. Admitted for possible pneumonia causing acute on chronic hypoxic respiratory failure, recurrent liver cirrhosis related pleural effusion, as well as acute metabolic encephalopathy. Earlier in his course palliative care worked with family regarding goals of care. Code status was changed and they were considering hopsice care as he was failing to improve. Remarkabley with repeated HD sessions and antibiotic treatment pt encephalopathy resolved and he returned in the first week to baseline mental status. His acute resp failure resolved, he completed abx treatment for pna and he had pleurx cath placed for recurrent effusions. He had pneumothorax post pleurx catheter and chest tube to suction for >500 cc effusion removed. Pulm managed and at time of dc he has improved effusion, stable tiny apical right pneumothorax. Recommendation by pulm is routine pleurx cath care. He will cont on outpt HD. He is discharged back to ECF in stable medical condition and at baseline alert and oriented mental status. Discharge discussed with: patient, nurse, social work Time spent discussing smoking cessation with patient: more than 10 minutes - Time Spent with Patient Time spent: Greater than 30 minutes (35 min) - Discharge Medications Prescriptions: New Metoprolol XL (24 HR) Succ [Toprol Xl] 25 mg PO Q24H tab.er.24h Continued Venlafaxine XR (24 HR) [Effexor Xr] 150 mg PO 1999 Trazodone HCl 100 mg PO HS PRN PRN Reason: Sleep Calcium Acetate [Phos-LO] 1,334 mg PO TIDWM Nitroglycerin [Nitrostat] 0.4 mg SL Q5M PRN PRN Reason: Chest Pain Aspirin [Lo-Dose Aspirin EC] 81 mg PO 1600 Acetaminophen [Tylenol 8 Hour] 650 mg PO Q6H PRN PRN Reason: Pain Guaifenesin [Mucinex] 600 mg PO BID PRN PRN Reason: Cough Ipratropium/Albuterol Neb [Duoneb] 3 ml IH Q6HR PRN PRN Reason: Shortness Of Breath Ondansetron ODT [Zofran ODT] 4 mg SL Q6HR PRN PRN Reason: Nausea Gabapentin [Neurontin] 100 mg PO TID Atorvastatin Calcium 80 mg PO DAILY@1999 Tramadol HCl [Ultram] 50 mg PO BID PRN PRN Reason: Pain Discontinued Metoprolol Succinate 200 mg PO 1600 Isosorbide MONOnitrate (24 HR) [Imdur] 30 mg PO DAILY@1600 Home Medications: Venlafaxine XR (24 HR) [Effexor Xr] 150 mg PO 199901/15/18 [History] Trazodone HCl 100 mg PO HS PRN 01/31/18 [History] Calcium Acetate [Phos-LO] 1,334 mg PO TIDWM 07/03/18 [History] Nitroglycerin [Nitrostat] 0.4 mg SL Q5M PRN 07/04/18 [History] Aspirin [Lo-Dose Aspirin EC] 81 mg PO 1600 08/23/18 [History] Acetaminophen [Tylenol 8 Hour] 650 mg PO Q6H PRN 10/17/18 [History] Guaifenesin [Mucinex] 600 mg PO BID PRN 10/17/18 [History] Ipratropium/Albuterol Neb [Duoneb] 3 ml IH Q6HR PRN 10/17/18 [History] Gabapentin [Neurontin] 100 mg PO TID 11/09/18 [History] Ondansetron ODT [Zofran ODT] 4 mg SL Q6HR PRN 11/09/18 [History] Atorvastatin Calcium 80 mg PO DAILY@199911/18/18 [History] Tramadol HCl [Ultram] 50 mg PO BID PRN 11/18/18 [History] Metoprolol XL (24 HR) Succ [Toprol Xl] 25 mg PO Q24H tab.er.24h 11/27/18 [Rx] Allergies/Adverse Reactions: Allergy/AdvReac Type Severity Reaction Status Date / Time No Known Allergies Allergy Verified 11/09/18 07:04 Date of admission: 11/18/18 17:45 Primary care physician: David Strange DO Consults: 11/18/18 17:47 Consult to Physical Therapy [CONS] Routine Comment: Evaluate, develop and implement POC Reason for Consult: weakness Does patient have active BEDREST order?: No Is patient medically & hemodynamically stable?: Yes 11/18/18 18:05 Consult to Nephrology [CONS] Routine Consulting Provider: Kidney Faye/AGUSTINA/TRAN/SHRADDHA Reason for Consult: HD Call Completed: No Consult to Pulmonology [CONS] Routine Consulting Provider: Pulm Crit Care & Sleep Faye Reason for Consult: recurrent effusions, pulm considering pleurx as outpt but pt wants discussion of doing this if needed while inpatient Call Completed: No 11/20/18 14:30 Consult to Palliative Care [CONS] Routine Comment: Consulting Provider: Palliative [facility] [place] Reason for Consult: ESRD on HD, states pt and she had previously discussed hospice Call Completed: No 11/21/18 07:49 Consult to Nurse Navigator [CONS] Routine Comment: hd, pn Consult to Surg Physician Asst [CONS] Routine Reason for SW Consult: pt from [facility] ? 11/22/18 13:15 Consult to Dialysis [CONS] ONCE 11/24/18 09:15 Consult to Dialysis [CONS] ONCE 11/25/18 08:15 Consult to Dialysis [CONS] ONCE Discharging clinician: Jacqueline Treviño - Constitutional Vitals: Temp Pulse Resp BP Pulse Ox 98.3 F 111 18 153/71 98 11/27/18 07:04 11/27/18 07:04 11/27/18 07:04 11/27/18 07:04 11/27/18 07:04 Exam: awake, pleasant and joking. He denies being confused overnight. RN notes he had received vistaril and was agitated with her after waking up. Pt recalls incident and states he was not confused but she had just woken him from sleep. He quickly returned to baseline mental status. RN today agrees he has had no confusion today and is at baseline. He denies sob, cough or wheezing. no cp, palpitations. Dneies fevers or chills. He is eager for dc back to snf and happy to go. dc plan discussed in detail and all questions answered. RN has updated pt and she will likley meet him at snf today. gen- alert, awake,appears stated age cv- reg rate and reg rhythm, normal s1,s2, no le edema, no jvd lungs- ctabl, no wheezing, no crackles, normal resp effort on o2 nc, abd- soft, non tender, non dstended, + bs neuro- AAOxperson, place, situation, CN grossly intact, moves all ext without focal deficit. - Patient Status Disposition: Transfer SNF Condition: Good Overall status at discharge: patient is progressing back to baseline - Discharge Instructions Instructions: Hypoxia (GEN), Pneumonia (DC) Follow Up With: David Strange DO [Primary Care Provider] - Forms: ED Satisfaction Letter Additional Instructions: Resume your usual dialysis schedule Routine Pleurx cath care for recurrent pleural effusions related to your liver disease You Metoprolol dose is reduced and your Imdur has been held due to low normal blood pressure readings. Your blood pressure is at goal on new regimen. Your outpatient doctor will continue to manage. - Diet and Activity Activity: as per physical therapy, increase activity as tolerated, wear oxygen at all times Diet: advance to your usual diet
--- NOTE | 2018-11-27 10:58 | Physician Discharge Referral ---
ExtendedCare Referral Info Provider in Charge after Transfer: PCP - Diagnosis (1) Pneumonia Priority: Primary Status: Suspected (2) ESRD (end stage renal disease) on dialysis Priority: Secondary Status: Chronic (3) Pleural effusion Priority: Secondary Status: Acute - Transfer Medications Home Medications: Venlafaxine XR (24 HR) [Effexor Xr] 150 mg PO 199901/15/18 [History] Trazodone HCl 100 mg PO HS PRN 01/31/18 [History] Calcium Acetate [Phos-LO] 1,334 mg PO TIDWM 07/03/18 [History] Nitroglycerin [Nitrostat] 0.4 mg SL Q5M PRN 07/04/18 [History] Aspirin [Lo-Dose Aspirin EC] 81 mg PO 1600 08/23/18 [History] Acetaminophen [Tylenol 8 Hour] 650 mg PO Q6H PRN 10/17/18 [History] Guaifenesin [Mucinex] 600 mg PO BID PRN 10/17/18 [History] Ipratropium/Albuterol Neb [Duoneb] 3 ml IH Q6HR PRN 10/17/18 [History] Gabapentin [Neurontin] 100 mg PO TID 11/09/18 [History] Ondansetron ODT [Zofran ODT] 4 mg SL Q6HR PRN 11/09/18 [History] Atorvastatin Calcium 80 mg PO DAILY@199911/18/18 [History] Tramadol HCl [Ultram] 50 mg PO BID PRN 11/18/18 [History] Metoprolol XL (24 HR) Succ [Toprol Xl] 25 mg PO Q24H tab.er.24h 11/27/18 [Rx] Allergies/Adverse Reactions: Allergy/AdvReac Type Severity Reaction Status Date / Time No Known Allergies Allergy Verified 11/09/18 07:04 - Respiratory Orders Oxygen / L per min (3-4L NC continuously, goal O2 sat >92%) Smoking Cessation: Smoking cessation has been advised. For more information, call the [place] Tobacco Quit Line at 0-699-EUPD-NOW. - Ancillary Orders May use pressure relief devices daily prn - Mobility Orders Other (as per PT) - Rehabiliation Orders Rehab Potential: Fair Rehab Orders: ROM Exercises, Evaluation for Physical Therapy, Evaluation for Occupational Therapy - Treatments Skin tear care topically daily PRN per policy List/Other: Vin Wednesday [place] dialysis, next session 11/28/18 - Diet Orders Renal, Cardiac House Supplement per Dietary: Debora DUENAS WM CERTIFICATION: I certify that the transfer of the above named patient to an Extended Care Facility is necessary for the continuing treatment of the diagnosis listed. The above information is true and accurate reflection of patient's current condition. Confidential - Redisclosure prohibited without a patient's written consent.
[2018-11-27 11:17] VITALS: BP 120/73
== END 2018-11-27 13:58 | DRG 190 ==
LOC: EMEROOARM 15:56 → 2ANU 15:56 → OBSVTOIN 17:45 → SUATTDRO 17:45 → 2ANU 19:45
PROVIDERS: ADMIT Internal Medicine; ATTEND Internal Medicine

== ENCOUNTER 2018-12-07 18:44 | Inpatient (IN) ==
[2018-12-07] MEDS ORDERED: Morphine Sulfate Immed Rel 15 MG TABLET PO STA (19:10)
--- NOTE | 2018-12-07 19:14 | Emergency Department Note ---
Disposition Clinical Impression: Elevated troponin I level, Tachycardia Disposition: Admitted As Inpatient Condition: Fair Time of Disposition: 00:10 General Adult HPI - General Chief complaint: ED Wound/Laceration Stated complaint: drain tube in back Time Seen by Provider: 12/07/18 18:48 Nursing Notes Reviewed: Yes Vital Signs Reviewed: Yes - History of Present Illness HPI Narrative: 78-year-old male with end-stage renal disease, CABG, with stents, presents to the emergency department with concern for issues with his pleurix catheter left in place for chronic pleural effusion. Reports that this morning, the nurse thought it was a little bit out of place, so she sent to the emergency department for evaluation of it. Patient has end-stage renal disease and dialysis 3 times per week. Patient states that he is having some sharp pain in that area. Pain Scale: 10 - Related Data Home Medications Medication Instructions Recorded Confirmed Venlafaxine XR (24 HR) [Effexor Xr] 150 mg PO 199901/15/18 12/08/18 Trazodone HCl 100 mg PO HS PRN 01/31/18 12/08/18 Calcium Acetate [Phos-LO] 1,334 mg PO TIDWM 07/03/18 12/08/18 Nitroglycerin [Nitrostat] 0.4 mg SL Q5M PRN 07/04/18 12/08/18 Aspirin [Lo-Dose Aspirin EC] 81 mg PO 1600 08/23/18 12/08/18 Acetaminophen [Tylenol 8 Hour] 650 mg PO Q6H PRN 10/17/18 12/08/18 Guaifenesin [Mucinex] 600 mg PO BID PRN 10/17/18 12/08/18 Ipratropium/Albuterol Neb [Duoneb] 3 ml IH Q6HR PRN 10/17/18 12/08/18 Gabapentin [Neurontin] 100 mg PO TID 11/09/18 12/08/18 Ondansetron ODT [Zofran ODT] 4 mg SL Q6HR PRN 11/09/18 12/08/18 Atorvastatin Calcium 80 mg PO DAILY@199911/18/18 12/08/18 Tramadol HCl [Ultram] 50 mg PO BID PRN 11/18/18 12/08/18 Previous Rx's Medication Instructions Recorded Metoprolol XL (24 HR) Succ [Toprol 25 mg PO Q24H tab.er.24h 11/27/18 Xl] Allergies Allergy/AdvReac Type Severity Reaction Status Date / Time No Known Allergies Allergy Verified 11/09/18 07:04 All systems ED: reviewed and negative except as stated. Review of Systems: As Per HPI Constitutional: Denies: fever Cardiovascular: Denies: chest pain Respiratory: Denies: cough, dyspnea Gastrointestinal: Denies: abdominal pain, nausea, vomiting Genitourinary: Denies: urgency, dysuria, frequency Musculoskeletal: Reports: back pain Integumentary: Denies: rash Neurological: Denies: headache Past Medical History - Past Medical History Attestation: Yes The following information was validated with the patient. Medical history: Reports: aortic aneurysm, arthritis, CHF, coronary artery disease, diabetes, dialysis, hyperlipidemia, hypertension, renal disease Surgical history: Reports: angioplasty/stent, coronary bypass (CABG), orthopedic, other, other Psychiatric history: Reports: anxiety, depression - Social History Smoking Status: Former smoker Smokeless Tobacco Status: No Alcohol use: Reports: none Drug use: Reports: none Physical Exam - General General appearance: alert, in no apparent distress - Head Head exam: normocephalic - Eye Eye exam: Present: EOMI - ENT ENT exam: mucous membranes moist - Neck Neck exam: Present: trachea midline - Chest Chest inspection: Present: symmetric chest wall rise - Respiratory Respiratory exam: Present: normal lung sounds bilaterally. Absent: respiratory distress, accessory muscle use - Cardiovascular Cardiovascular exam: Present: regular rate, normal rhythm, normal heart sounds - Abdominal Exam Abdominal exam: Present: soft, Non-Tender. Absent: distention, guarding, rebound, rigidity - Extremities Exam Extremities exam: Present: normal capillary refill - Back Exam Back exam: Present: other (Patient has Pleurx catheter in place, no drainage from the area, no erythema around it.) - Neurological Exam Neurological exam: Present: alert, oriented X3 - Psychiatric Psychiatric exam: Present: normal affect, normal mood - Skin Skin exam: Present: warm, dry Course Vital Signs Temperature 98.1 F 12/07/18 18:52 Pulse Rate 120 12/07/18 18:52 Respiratory Rate 20 12/07/18 18:52 Blood Pressure 133/81 12/07/18 18:52 O2 Sat by Pulse Oximetry 100 12/07/18 18:52 Temperature 98.1 F 12/07/18 18:52 Pulse Rate 105 12/07/18 23:20 Respiratory Rate 24 12/07/18 23:20 Blood Pressure 106/69 12/07/18 23:20 O2 Sat by Pulse Oximetry 94 12/07/18 23:20 Oxygen Delivery Oxygen Delivery Nasal Cannula Medical Decision Making - MDM Narrative Medical decision making narrative: 78 social male presents emergency department with concern for back pain and sent for concern that his Pleurx catheter was coming out of its normal place. Mildly tachycardic initially, but reports that he is in a lot of pain. Patient was given morphine here in the emergency department. He was also given Dilaudid. Patient's EKG did not reveal any ischemic ST changes. Chest x-ray shows good placement of Pleurx catheter. Patient remained in the emergency department. He did miss his dose of metoprolol, was persistently tachycardic with a heart rate in the 120s. We gave him a dose of his Toprol as well as his Ativan that he typically takes at the nursing facility. Heart rate remained tachycardic in the 120s with him a sleep in the room. When looking at recent vital signs, his heart rate has not been this high in the last several days. Patient did report some shortness of breath. Couple was tachycardic, we will obtain CT angiogram. CT angiogram did not reveal any evidence of any acute pulmonary embolus. Troponin was elevated at .43. Higher than it has been in the past. Patient denies chest pain. I spoke with Dr. Deleon who suggested that we start heparin. Also gave aspirin. Patient chest pain free and not in any acute distress at time of admission. Heartrate imrpoved to the low 100s. Chest X-Ray 12/07/18 19:09 IMPRESSION: 1. Right chest tube present, similar in position compared to the previous exam. 2. No pneumothorax identified. 3. Small right pleural effusion. 4. Mild pulmonary vascular congestion. D/ / 12/07/2018 19:39:59 Devonte Birmingham MD / hannah Interpreting Provider: Devonte Birmingham MD Chest CTA 12/07/18 21:15 IMPRESSION: 1. No acute pulmonary emboli. 2. 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 3. Stable chronic mild left pleural effusion with chronic lower lobe atelectasis. 4. Right pleural drain in position with significant interval decrease in size of the left pleural fluid which is now mild with multifocal loculations. 5. Interval reinflation of the left lung with nonspecific peripheral patchy interstitial and alveolar opacities. This could represent residual atelectasis or possible interstitial fibrosis. No evidence of an acute pneumonia. D/ / 12/07/2018 23:04:28 Tristen Barillas MD / hannah Interpreting Provider: Tristen Barillas MD Chest X-Ray 12/07/18 19:09 IMPRESSION: 1. Right chest tube present, similar in position compared to the previous exam. 2. No pneumothorax identified. 3. Small right pleural effusion. 4. Mild pulmonary vascular congestion. D/ / 12/07/2018 19:39:59 Devonte Birmingham MD / hannah Interpreting Provider: Devonte Birmingham MD - Lab Data Result diagrams: 12/08/18 01:52 12/08/18 01:52 Lab Results 12/07/18 12/07/18 12/07/18 Range/Units 21:40 21:40 21:40 WBC 4.6 (4.3-11.1) K/mcL RBC 3.59 L (4.19-5.50) M/mcL Hgb 10.4 L (12.9-16.9) g/dL Hct 35.3 L (37.5-50.1) % MCV 98.3 (83.0-100.0) fL MCH 29.0 (28.0-33.3) pg MCHC 29.5 L (31.6-35.5) g/dL RDW 15.8 H (11.5-14.5) % Plt Count 89 L (140-400) K/mcL MPV 10.0 (9.4-12.4) fL Immature Gran % 0.2 (0-4) % Seg Neutrophils % 48.7 % Lymphocytes % 15.6 % Monocytes % 9.4 % Eosinophils % 25.4 % Basophils % 0.7 % Neutrophils # 2.2 (1.6-8.9) K/mcL Lymphocytes # 0.7 (0.6-4.6) K/mcL Monocytes # 0.4 (0.0-1.3) K/mcL Eosinophils # 1.2 H (0.0-0.6) K/mcL Basophils # 0.0 (0.0-0.2) K/mcL Immature Plt Fraction 4.6 (1.1-6.1) % Sodium 138 (136-145) mEq/L Potassium 4.7 (3.5-5.1) mEq/L Chloride 98 (98-107) mEq/L Carbon Dioxide 33 H (23-29) mEq/L BUN 18 (8-23) mg/dL Creatinine 3.86 H (0.70-1.30) mg/dL Est GFR ( Amer) 19 L (> 60) Est GFR (Non-Af Amer) 15 L (> 60) BUN/Creatinine Ratio 5 L (6-26) Glucose 109 H (70-105) mg/dL Calculated Osmolality 288 (280-300) Lactic Acid (0.5-2.2) mmol/L Calcium 7.1 L (8.6-10.3) mg/dL Troponin I 0.47 H* (< 0.04) ng/mL B-Natriuretic Peptide (Less than 100) pg/mL 12/07/18 12/07/18 Range/Units 21:40 21:40 WBC (4.3-11.1) K/mcL RBC (4.19-5.50) M/mcL Hgb (12.9-16.9) g/dL Hct (37.5-50.1) % MCV (83.0-100.0) fL MCH (28.0-33.3) pg MCHC (31.6-35.5) g/dL RDW (11.5-14.5) % Plt Count (140-400) K/mcL MPV (9.4-12.4) fL Immature Gran % (0-4) % Seg Neutrophils % % Lymphocytes % % Monocytes % % Eosinophils % % Basophils % % Neutrophils # (1.6-8.9) K/mcL Lymphocytes # (0.6-4.6) K/mcL Monocytes # (0.0-1.3) K/mcL Eosinophils # (0.0-0.6) K/mcL Basophils # (0.0-0.2) K/mcL Immature Plt Fraction (1.1-6.1) % Sodium (136-145) mEq/L Potassium (3.5-5.1) mEq/L Chloride (98-107) mEq/L Carbon Dioxide (23-29) mEq/L BUN (8-23) mg/dL Creatinine (0.70-1.30) mg/dL Est GFR ( Amer) (> 60) Est GFR (Non-Af Amer) (> 60) BUN/Creatinine Ratio (6-26) Glucose (70-105) mg/dL Calculated Osmolality (280-300) Lactic Acid 0.8 (0.5-2.2) mmol/L Calcium (8.6-10.3) mg/dL Troponin I (< 0.04) ng/mL B-Natriuretic Peptide 1762 H (Less than 100) pg/mL - EKG Data EKG #1 EKG attestation: Yes I reviewed and interpreted this EKG. EKG results narrative: 19:38 Heart rate 120 bpm, MT interval 113 ms, QRS duration 105 ms, QT 345 ms, left axis deviation. Sinus tachycardia with no ischemic ST changes. Attestation Statement - Attestation Attestation: I have seen this patient with the resident physician, I have personally evaluated this patient. I had reviewed the chart and document dictation by the resident physician and aM in agreement with the information documented by the resident physician. Please see documentation by the resident physician for complete chart including past medical history, family medical history, review of systems, current history and physical and laboratory and imaging studies. I was present for all procedures, provided direct supervision for all procedures, was present for the entirety of all procedures and provided direct guidance during the procedures. Please see documentation by the resident physician for any procedures performed. I have reviewed all interpretations of EKGs, and reviewed all EKGs performed on patient's as well. I have also reviewed reports of imaging as provided by radiology.
[2018-12-07] MEDS ORDERED: *HR* HYDROmorphone (PF) 1 MG/ML SYRINGE IM ONE (19:58)
[2018-12-07] MEDS ORDERED: *HR* LORazepam 1 MG TABLET PO ONE (20:32)
[2018-12-07] MEDS ORDERED: Isovue-370 500 ML BOTTLE IVP ONE (21:15)
[2018-12-07 21:57] LABS: Basophils % 0.7 %; Red Cell Distribution Width 15.8 % (11.5-14.5)
[2018-12-07 21:59] LABS: Eosinophils # 1.2 K/mcL (0.0-0.6); Eosinophils % 25.4 %; Hematocrit 35.3 % (37.5-50.1); Hemoglobin 10.4 g/dL (12.9-16.9); Immature Granulocytes % 0.2 % (0-4); Immature Platelets 4.6 % (1.1-6.1); Lymphocytes # 0.7 K/mcL (0.6-4.6); Lymphocytes % 15.6 %; Mean Corpuscular HGB Conc 29.5 g/dL (31.6-35.5); Mean Corpuscular Volume 98.3 fL (83.0-100.0); Monocytes # 0.4 K/mcL (0.0-1.3); Monocytes % 9.4 %; Neutrophils # 2.2 K/mcL (1.6-8.9); Red Blood Count 3.59 M/mcL (4.19-5.50); Segmented Neutrophils % 48.7 %; White Blood Count 4.6 K/mcL (4.3-11.1)
[2018-12-07 22:16] LABS: Platelet Count 89 K/mcL (140-400)
[2018-12-07 22:18] LABS: Calcium 7.1 mg/dL (8.6-10.3); Potassium 4.7 mEq/L (3.5-5.1)
[2018-12-07] MEDS ORDERED: *HR* Metoprolol 5 MG/5 ML VIAL IVP PRN (22:38)
[2018-12-07] MEDS ORDERED: Aspirin 81 MG TAB.CHEW PO STA (23:07)
[2018-12-07] MEDS ORDERED: *HR* Heparin 5,000 UNIT/ML VIAL IVP ONE (23:16)
[2018-12-07] MEDS ORDERED: *HR* Heparin 5,000 UNIT/ML VIAL IVP PRN ×2 (23:16)
--- NOTE | 2018-12-07 23:21 | Emergency Department Note ---
Disposition Clinical Impression: Elevated troponin I level, Tachycardia Disposition: Admitted As Inpatient Condition: Fair Referrals: David Strange DO [Primary Care Provider] - Forms: ED Satisfaction Letter Time of Disposition: 23:21 General Adult HPI - General Chief complaint: ED Wound/Laceration Stated complaint: drain tube in back Time Seen by Provider: 12/07/18 18:48 Source: patient, family, EMS - History of Present Illness Pain Scale: 10 - Related Data Home Medications Medication Instructions Recorded Confirmed Venlafaxine XR (24 HR) [Effexor Xr] 150 mg PO 199901/15/18 11/18/18 Trazodone HCl 100 mg PO HS PRN 01/31/18 11/18/18 Calcium Acetate [Phos-LO] 1,334 mg PO TIDWM 07/03/18 11/18/18 Nitroglycerin [Nitrostat] 0.4 mg SL Q5M PRN 07/04/18 11/18/18 Aspirin [Lo-Dose Aspirin EC] 81 mg PO 1600 08/23/18 11/18/18 Acetaminophen [Tylenol 8 Hour] 650 mg PO Q6H PRN 10/17/18 11/18/18 Guaifenesin [Mucinex] 600 mg PO BID PRN 10/17/18 11/18/18 Ipratropium/Albuterol Neb [Duoneb] 3 ml IH Q6HR PRN 10/17/18 11/18/18 Gabapentin [Neurontin] 100 mg PO TID 11/09/18 11/18/18 Ondansetron ODT [Zofran ODT] 4 mg SL Q6HR PRN 11/09/18 11/18/18 Atorvastatin Calcium 80 mg PO DAILY@199911/18/18 11/18/18 Tramadol HCl [Ultram] 50 mg PO BID PRN 11/18/18 11/18/18 Previous Rx's Medication Instructions Recorded Metoprolol XL (24 HR) Succ [Toprol 25 mg PO Q24H tab.er.24h 11/27/18 Xl] Allergies Allergy/AdvReac Type Severity Reaction Status Date / Time No Known Allergies Allergy Verified 11/09/18 07:04 Constitutional: Denies: fever Cardiovascular: Denies: chest pain Respiratory: Denies: cough, dyspnea Gastrointestinal: Denies: abdominal pain, nausea, vomiting Genitourinary: Denies: urgency, dysuria, frequency Musculoskeletal: Reports: back pain Integumentary: Denies: rash Neurological: Denies: headache Past Medical History - Past Medical History Medical history: Reports: aortic aneurysm, arthritis, CHF, coronary artery disease, diabetes, dialysis, hyperlipidemia, hypertension, renal disease Surgical history: Reports: angioplasty/stent, coronary bypass (CABG), orthopedic, other, other Psychiatric history: Reports: anxiety, depression - Social History Smoking Status: Former smoker Smokeless Tobacco Status: No Alcohol use: Reports: none Drug use: Reports: none Physical Exam - General General appearance: alert, in no apparent distress Course Vital Signs Temperature 98.1 F 12/07/18 18:52 Pulse Rate 120 12/07/18 18:52 Respiratory Rate 20 12/07/18 18:52 Blood Pressure 133/81 12/07/18 18:52 O2 Sat by Pulse Oximetry 100 12/07/18 18:52 Temperature 98.1 F 12/07/18 18:52 Pulse Rate 117 12/07/18 21:10 Respiratory Rate 10 12/07/18 21:10 Blood Pressure 114/72 12/07/18 21:10 O2 Sat by Pulse Oximetry 100 12/07/18 21:10 Oxygen Delivery Oxygen Delivery Nasal Cannula Medical Decision Making - Lab Data Result diagrams: 12/07/18 21:40 12/07/18 21:40 Lab Results 12/07/18 12/07/18 12/07/18 Range/Units 21:40 21:40 21:40 WBC 4.6 (4.3-11.1) K/mcL RBC 3.59 L (4.19-5.50) M/mcL Hgb 10.4 L (12.9-16.9) g/dL Hct 35.3 L (37.5-50.1) % MCV 98.3 (83.0-100.0) fL MCH 29.0 (28.0-33.3) pg MCHC 29.5 L (31.6-35.5) g/dL RDW 15.8 H (11.5-14.5) % Plt Count 89 L (140-400) K/mcL MPV 10.0 (9.4-12.4) fL Immature Gran % 0.2 (0-4) % Seg Neutrophils % 48.7 % Lymphocytes % 15.6 % Monocytes % 9.4 % Eosinophils % 25.4 % Basophils % 0.7 % Neutrophils # 2.2 (1.6-8.9) K/mcL Lymphocytes # 0.7 (0.6-4.6) K/mcL Monocytes # 0.4 (0.0-1.3) K/mcL Eosinophils # 1.2 H (0.0-0.6) K/mcL Basophils # 0.0 (0.0-0.2) K/mcL Immature Plt Fraction 4.6 (1.1-6.1) % Sodium 138 (136-145) mEq/L Potassium 4.7 (3.5-5.1) mEq/L Chloride 98 (98-107) mEq/L Carbon Dioxide 33 H (23-29) mEq/L BUN 18 (8-23) mg/dL Creatinine 3.86 H (0.70-1.30) mg/dL Est GFR ( Amer) 19 L (> 60) Est GFR (Non-Af Amer) 15 L (> 60) BUN/Creatinine Ratio 5 L (6-26) Glucose 109 H (70-105) mg/dL Calculated Osmolality 288 (280-300) Lactic Acid (0.5-2.2) mmol/L Calcium 7.1 L (8.6-10.3) mg/dL Troponin I 0.47 H* (< 0.04) ng/mL B-Natriuretic Peptide (Less than 100) pg/mL 12/07/18 12/07/18 Range/Units 21:40 21:40 WBC (4.3-11.1) K/mcL RBC (4.19-5.50) M/mcL Hgb (12.9-16.9) g/dL Hct (37.5-50.1) % MCV (83.0-100.0) fL MCH (28.0-33.3) pg MCHC (31.6-35.5) g/dL RDW (11.5-14.5) % Plt Count (140-400) K/mcL MPV (9.4-12.4) fL Immature Gran % (0-4) % Seg Neutrophils % % Lymphocytes % % Monocytes % % Eosinophils % % Basophils % % Neutrophils # (1.6-8.9) K/mcL Lymphocytes # (0.6-4.6) K/mcL Monocytes # (0.0-1.3) K/mcL Eosinophils # (0.0-0.6) K/mcL Basophils # (0.0-0.2) K/mcL Immature Plt Fraction (1.1-6.1) % Sodium (136-145) mEq/L Potassium (3.5-5.1) mEq/L Chloride (98-107) mEq/L Carbon Dioxide (23-29) mEq/L BUN (8-23) mg/dL Creatinine (0.70-1.30) mg/dL Est GFR ( Amer) (> 60) Est GFR (Non-Af Amer) (> 60) BUN/Creatinine Ratio (6-26) Glucose (70-105) mg/dL Calculated Osmolality (280-300) Lactic Acid 0.8 (0.5-2.2) mmol/L Calcium (8.6-10.3) mg/dL Troponin I (< 0.04) ng/mL B-Natriuretic Peptide 1762 H (Less than 100) pg/mL Attestation Statement - Attestation Attestation: I have seen this patient with the resident physician, I have personally evaluated this patient. I had reviewed the chart and document dictation by the resident physician and aM in agreement with the information documented by the resident physician. Please see documentation by the resident physician for co mplete chart including past medical history, family medical history, review of systems, current history and physical and laboratory and imaging studies. I was present for all procedures, provided direct supervision for all procedures, was present for the entirety of all procedures and provided direct guidance during the procedures. Please see documentation by the resident physician for any procedures performed. I have reviewed all interpretations of EKGs, and reviewed all EKGs performed on patient's as well. I have also reviewed reports of imaging as provided by radiology. Patient presented emergency department with chief complaint that his Pleurx catheter got pulled out some while he was at the senior living facility and is had pain at that site ever since. He states the pain is only at the site where the insertion of the tube was. He denies any other symptoms of headache neck pain chest pain shortness of breath dizziness weakness fevers chills cough or sputum production. Upon arrival he is uncomfortable in appearance he was tachycardic with a heart rate of 120 was also having pain. Reviewed several prior EKGs which showed heart rates ranging of for stool 110, however the majority of EKGs showed heart rates between 70 and 90. EKG was obtained to evaluate this, it was a sinus tachycardia, when compared to prior EKG there is stable persistent ST segment T- wave abnormalities in the leads V1 through V4, with downsloping ST segments with T wave inversion, when compared to all prior EKGs there is no acute change. Patient was having a lot of pain in his back with a Pleurx catheter had been pulled out a little bit, clinical examination the site appeared healthy, it does appear that the Pleurx catheter probably backed out approximately 1 cm and all his pain was only at the site, chest x-ray confirmed that his Pleurx catheter was still in place without significant movement with persistent drainage of his fluid. And no evidence of fluid buildup. We treated his pain initially with oral morphine he reported no improvement of his pain he was then given intramuscular Dilaudid, which did help his pain and he remained with a heart rate of 120. Reviewing his medications he was due to have metoprolol and Ativan, I felt that potentially again because he had 0 symptoms that his heart rate may be related to initially pain and now potentially that he needed his nighttime medications he was given his Ativan as well as his metoprolol and his heart rate remained elevated between 115 and 125. Secondary to his persistent unexplained tachycardia, and reviewing his nursing notes from the [facility] that showed his heart rate all during the day today was between 60 and 88, a workup was performed to rule out any evidence of acute abnormality and/or e xplanation for his tachycardia. He is a dialysis patient and he has not missed any dialysis, secondary to a Tachycardia recent hospitalizations and some decreased mobility at baseline, a CT PE protocol was ordered basic laboratory studies were ordered CBC was within acceptable limits renal panel consistent with his history of dialysis no electrolyte disturbance. CT PE showed no acute findings. Troponin was elevated at 0.47 he is a chronic dialysis patient, however reviewing his prior troponins, he does have usually a small leak, with numbers typically between 0.03 and 0.09, his last one was 2 weeks ago and was 0.03 has had numbers as high as 0.3 in the past. Secondary to this she was given IV metoprolol to help control his rate we contact cardiology to discuss consideration of anticoagulation they are recommending heparin at this time we will initiate this, and admit the patient for further evaluation and management. He remained without any symptoms apart from the isolated pain is Pleurx catheter site here in the emergency department.
[2018-12-08 00:37] LABS: Heparin anti-factor XA UFH 0.02 IU/mL (0.30-0.70)
[2018-12-08 00:38] LABS: INR 1.2; Prothrombin Time 13.5 Seconds (9.4-12.1)
--- NOTE | 2018-12-08 00:50 | Internal Med History&Physical ---
<Shaan Hurley - Last Filed: 12/08/18 01:40> Date of Encounter: 12/08/18 Time of Encounter: 01:40 Internal Medicine - H&P: HPI Chief complaint: chest tube pain Admitted From: Emergency Dept Plans for Post Hospital Care: Home History of present illness: Mr. Esquivel is a 78 year old male with very significant history including HFpEF, CAD, diabetes, end-stage renal disease, hyperlipidemia, hypertension, aortic aneurysm, cirrhosis who presented to ED after home health nurse noticed that his pleurx catheter had changed in position. There was some concern that the catheter had been pulled out. Patient states that he has had some pain around the insertion site, however is not having any other symptoms at this time. His vitals at time of presentation were significant for heart rate 120, respiratory rate 20, is tolerating his home oxygen requirement of 2 L at 100%. Laboratory results were obtained and showed a baseline anemia 10.4, carbonate of 33, BUN/creatinine screen of 18/3.86 which is consistent with ESRD, glucose 109, BNP of 1762 which is at baseline. Troponin was obtained due to tachycardia and was elevated at 0.47. EKG was obtained and showed diffuse ST depressions with minimal ST elevation in inferior leads. Cardiology was consult at this time and will see the patient in consultation. Dr. Deleon was the tow driver artificial insemination technician and informed ED staff that this is noticeably significant deviation from patient's baseline EKG changes. Of note, patient also has recent cardiac workup including echocardiogram, left heart catheterization in October 2018. Echocardiogram on 11/10/18 shows ejection fraction of 50-55% and apical lateral wall was hypokinetic. Cardiac catheterization at that time showed triple-vessel coronary artery disease, segmental LV dysfunction with preserved systolic function, CABG 3 with one of 3 patent bypass graft. Medical management was recommended at that time. At time of my interview, patient states that he is not experiencing any chest pains at this time. He is not having any increased shortness of breath. Denies any symptoms of recent fevers, chills, cough, nausea, vomiting, changes in urinary or bowel movements. He is having no numbness, tingling or increased weakness. His only complaint at this time is pain around his Pleurx catheter insertion site. Past medical history: As above Past surgical history: CABG 3, cardiac stent 2, orthopedic Social history: Former smoker, former alcohol use, denies drug use Family history: Cardiac disease in father, cancer in mother Past Med Surg Social Fam HX - Past Medical History Medical history: aortic aneurysm, arthritis, CHF, coronary artery disease, diabetes, dialysis, hyperlipidemia, hypertension, renal disease Additional medical history: BLADDER NECK CONTRACTURE, SQUAMOUS CELL CANCER. 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), triple bypass - Social History Smoking Status: Former smoker Smokeless Tobacco Status: No Alcohol use: none Drug use: none - Family History Father Adopted: No Family Member Ethnicity: Non- Living Status: Hx Family Cardiac Disorders: Yes (OR) Mother Adopted: No Family Member Ethnicity: Non- Living Status: Hx Family Cancer: Yes Brother Family Member Ethnicity: Non- Living Status: Still Living Sister Adopted: No Family Member Ethnicity: Non- Living Status: Still Living Hx Family Cardiac Disorders: Yes Hx Family Respiratory Disorders: No Hx Family Cancer: Yes Hx Family GI Disorders: No Hx Family Endocrine Disorder: Yes Hx Family Neuromuscular Disorders: No Hx Family Neurologic Disorders: No Hx Family HEENT Disorders: No Hx Family Autoimmune Disorders: No Internal Medicine - H&P: Meds Venlafaxine XR (24 HR) [Effexor Xr] 150 mg PO 199901/15/18 [History] Trazodone HCl 100 mg PO HS PRN 01/31/18 [History] Calcium Acetate [Phos-LO] 1,334 mg PO TIDWM 07/03/18 [History] Nitroglycerin [Nitrostat] 0.4 mg SL Q5M PRN 07/04/18 [History] Aspirin [Lo-Dose Aspirin EC] 81 mg PO 1600 08/23/18 [History] Acetaminophen [Tylenol 8 Hour] 650 mg PO Q6H PRN 10/17/18 [History] Guaifenesin [Mucinex] 600 mg PO BID PRN 10/17/18 [History] Ipratropium/Albuterol Neb [Duoneb] 3 ml IH Q6HR PRN 10/17/18 [History] Gabapentin [Neurontin] 100 mg PO TID 11/09/18 [History] Ondansetron ODT [Zofran ODT] 4 mg SL Q6HR PRN 11/09/18 [History] Atorvastatin Calcium 80 mg PO DAILY@199911/18/18 [History] Tramadol HCl [Ultram] 50 mg PO BID PRN 11/18/18 [History] Metoprolol XL (24 HR) Succ [Toprol Xl] 25 mg PO Q24H tab.er.24h 11/27/18 [Rx] Allergy/AdvReac Type Severity Reaction Status Date / Time No Known Allergies Allergy Verified 11/09/18 07:04 All Systems PM: A 10-system review of systems was performed and is negative for pertinent findings except as documented above in the HPI. Review of systems: - Constitutional: Denies fevers, chills, weight loss, generalized fatigue - EENT: Denies vision changes/blurriness, recent illness - CVS: Admits to palpitations. Denies chest pain, PIERRE, orthopnea, edema, PND, - Pulm: Denies SOB, cough, sputum, hematemesis, wheezing - GI: Denies abdominal pain, anorexia, nausea, vomiting, diarrhea, constipation, melena - : Denies dysuria, increased frequency, urgency, hematuria, - Heme: Denies ease of bleeding or bruising - Skin: Denies rashes, ulcers, color changes, - Neuro: Denies RAYO, paresthesias, focal deficits, ataxia, - Constitutional Vitals: Temp Pulse Resp BP Pulse Ox 98.1 F 105 24 106/69 94 12/07/18 18:52 12/07/18 23:20 12/07/18 23:20 12/07/18 23:20 12/07/18 23:20 Exam: Gen.: Vitals noted. No acute distress. AAOx3, sitting up comfortably. HEENT: PERRL/EOMI, oropharynx clear, Normocephalic, atraumatic, MMM Cardiac: RRR, holosystolic murmur, +S1/S2, No BLE edema Pulmonary: Diffusely diminished breath sounds. equal chest expansion, unlabored breathing Abdomen: soft, nontender, BS noted, no guarding, Distended Back: Nontender throughout. Area surrounding Pleurx catheter not erythematous and no signs of drainage. Skin: warm and dry, no visible lesions. MSK: ROM intact, no joint swelling noted, gait no assessed while in bed. Non tender calf or clubbing Neuro: A&Ox3, moves all extremities, no focal deficits, sensation intact Psych: Appropriate mood and behavior, AOx3 Internal Med - H&P Results - Labs CBC & Chem 7: 12/07/18 21:40 12/07/18 21:40 Labs: Short CBC 12/07/18 Range/Units 21:40 WBC 4.6 (4.3-11.1) K/mcL Hgb 10.4 L (12.9-16.9) g/dL Hct 35.3 L (37.5-50.1) % Plt Count 89 L (140-400) K/mcL Neutrophils # 2.2 (1.6-8.9) K/mcL BMP 12/07/18 21:40 Sodium 138 Potassium 4.7 Chloride 98 Carbon Dioxide 33 H BUN 18 Creatinine 3.86 H Glucose 109 H Calcium 7.1 L Cardiac Enzymes 12/07/18 Range/Units 21:40 Troponin I 0.47 H* (< 0.04) ng/mL - Impressions ITS Impressions Chest X-Ray 12/07/18 19:09 IMPRESSION: 1. Right chest tube present, similar in position compared to the previous exam. 2. No pneumothorax identified. 3. Small right pleural effusion. 4. Mild pulmonary vascular congestion. D/ / 12/07/2018 19:39:59 Devonte Birmingham MD / hannah Interpreting Provider: Devonte Birmingham MD Chest CTA 12/07/18 21:15 IMPRESSION: 1. No acute pulmonary emboli. 2. 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 3. Stable chronic mild left pleural effusion with chronic lower lobe atelectasis. 4. Right pleural drain in position with significant interval decrease in size of the left pleural fluid which is now mild with multifocal loculations. 5. Interval reinflation of the left lung with nonspecific peripheral patchy interstitial and alveolar opacities. This could represent residual atelectasis or possible interstitial fibrosis. No evidence of an acute pneumonia. D/ / 12/07/2018 23:04:28 Tristen Barillas MD / hannah Interpreting Provider: Tristen Barillas MD - Assessment and Plan (1) NSTEMI (non-ST elevated myocardial infarction) Current Visit: Yes Status: Acute Assessment and plan: - Patient found to have elevated troponin of 0.47 in ED - Type I vs type II unclear - Trop has been elevated in the past in the setting of ESRD, however this is increased from baseline - EKG shows ST depressions, however they are similar to previous - EKG has been reviewed by tow driver per ED staff - Started on heparin gtt. Patient has no symptoms at this time - Recent cardiac workup in 11/10/18 for NSTEMI including echocardiogram and left heart catheterization - LHC shows triple vessel disease, 1/3 patent grafts. Medical management was recommended at that time - Patient compliant with statin, BB, aspirin Plan - Cardiology consulted, appreciate recommendations - Trend troponins - Continue heparin gtt - Continue BB, aspirin, statin (2) Chronic respiratory failure Current Visit: Yes Status: Chronic Assessment and plan: At home O2 of 2L secondary to fluid overload from CHF, cirrhosis, ESRD recurrent pleural effusions BNP at baseline continue O2 as needed. Qualifiers: Respiratory failure complication: hypoxia Qualified Code(s): J96.11 - Chronic respiratory failure with hypoxia (3) CAD (coronary artery disease) Current Visit: Yes Status: Chronic Assessment and plan: as above for NSTEMI Qualifiers: Coronary Disease-Associated Artery/Lesion type: bypass graft [place] vs. transplanted heart: [place] heart Associated angina: without angina Qualified Code(s): I25.810 - Atherosclerosis of coronary artery bypass graft(s) without angina pectoris (4) HTN (hypertension) Current Visit: Yes Status: Chronic Assessment and plan: well controlled continue BB, home meds Qualifiers: Hypertension type: essential hypertension Qualified Code(s): I10 - Essential (primary) hypertension (5) HLD (hyperlipidemia) Current Visit: Yes Status: Chronic Assessment and plan: continue statin Qualifiers: Hyperlipidemia type: unspecified Qualified Code(s): E78.5 - Hyperlipidemia, unspecified (6) CHF (congestive heart failure) Current Visit: Yes Status: Chronic Assessment and plan: - Chronic, not in acute exacerbation - Recent cardiac workup with echo showing EF 55% - Fluid overload at baseline, patient not symptomatic and at baseline O2 requirements - Continue home meds - Fluid removal per HD and pleurx Qualifiers: Heart failure type: diastolic Heart failure chronicity: acute Qualified Code(s): I50.31 - Acute diastolic (congestive) heart failure (7) Thrombocytopenia Current Visit: Yes Status: Chronic Assessment and plan: chronic, today is 89 appears at baseline secondary to cirrhosis no signs of bleed (8) ESRD (end stage renal disease) on dialysis Current Visit: Yes Status: Chronic Assessment and plan: Chronic, mild fluid overload from combination of CHF, cirrhosis, ESRD - Will consult nephro for HD - renally dose meds (9) Anxiety Current Visit: Yes Status: Chronic Assessment and plan: chronic, well controlled continue home meds (10) Pleural effusion Current Visit: Yes Status: Chronic Assessment and plan: chronic as above (11) Type 2 diabetes mellitus Current Visit: Yes Status: Chronic Assessment and plan: - Per history - Most recent A1c of 5.3 on 10/27/18 - BS on presentation of 109 - ADA diet, - No home meds, will consider insulin if blood sugars rise Qualifiers: Diabetes mellitus residential insulin use: without residential use Diabetes mellitus complication status: with hypoglycemia Diabetes mellitus complication detail: with coma Qualified Code(s): E11.641 - Type 2 diabetes mellitus with hypoglycemia with coma (12) Liver cirrhosis Current Visit: Yes Status: Chronic Assessment and plan: - Known history of cirrhosis with stigmata of portal venous hypertension and ascites status post multiple paracentesis - MELD-NA 22, Child-Pascual class B (7) - Mild fluid distention noted on exam - Patient appears alert and oriented, does not appear decompensated or to have encephalopathy - Continue home meds once reconciled. - Management as outpatient Qualifiers: Hepatic cirrhosis type: unspecified hepatic cirrhosis Ascites presence: with ascites Qualified Code(s): K74.60 - Unspecified cirrhosis of liver; R18.8 - Other ascites (13) DVT prophylaxis Current Visit: Yes Status: Acute Assessment and plan: On heparin drip as above - Time Spent With Patient Total time spent is greater than 50% in coordination of care (as documented) at patient's floor/unit and/or counseling patient: <Rishabh Walter - Last Filed: 12/08/18 04:23> Date of Encounter: 12/08/18 Time of Encounter: 02:50 Past Med Surg Social Fam HX - Past Medical History Attestation: Yes The following information was validated with the patient. Source: patient, old records reviewed - Social History Current living situation: Home Activity Level: Independent ambulation - Constitutional Constitutional: fatigue, no chills, no fever(s), no night sweats - EENT Eyes: no blurry vision, no change in vision Ears: no ear pain, no tinnitus Nose, mouth and throat: no nasal congestion, no sinus pressure, no sore throat - Cardiovascular Cardiovascular ROS IM: chest pain, dyspnea, dyspnea on exertion, no orthopnea, no paroxysmal nocturnal dyspnea - Respiratory Respiratory: dyspnea, dyspnea on exertion, no cough, no hemoptysis, no wheezing, no chest congestion, no excessive phlegm production, no change in phlegm color, no pain with cough - Gastrointestinal Gastrointestinal: no abdominal pain, no diarrhea, no hematemesis, no hematochezia, no melena, no vomiting - Genitourinary Genitourinary ROS male: no dysuria, no flank pain, no hematuria - Musculoskeletal Musculoskeletal ROS IM: no arthralgias, no back pain - Integumentary Integumentary IM: no rash, no jaundice - Neurological Neurological ROS: no dizziness, no focal weakness, no frequent falls, no headache(s) - Psychiatric Psychiatric: no anxiety, no depression - Hematologic/Lymphatic Hematologic/Lymphatic: no easy bruising, no lymphadenopathy - Allergic/Immunologic Allergic/Immunologic: no GI upset with certain foods - Constitutional Vitals: Temp Pulse Resp BP Pulse Ox 98.1 F 81 18 103/73 100 12/08/18 01:14 12/08/18 01:14 12/08/18 01:14 12/08/18 01:14 12/08/18 01:14 General appearance: Present: cooperative, A&O X 3, pleasant, no acute distress, answers questions appropriately - Head Head exam: Present: normal inspection - Eye Eye exam: Present: EOMI, PERRL. Absent: scleral icterus Pupils: Present: normal accommodation - ENT ENT exam: Present: mucous membranes dry, normal exam, normal oropharynx - Neck Neck exam general surgery: Present: full ROM, trachea midline. Absent: lymphadenopathy, tenderness, nuchal rigidity, thyromegaly - Respiratory Respiratory exam: Present: chest wall tenderness, prolonged expiratory phase, rales (R>L), rhonchi. Absent: respiratory distress, wheezes, tachypnea - Cardiovascular Cardiovascular exam: Present: distant heart sounds, +S1, +S2. Absent: diastolic murmur, systolic murmur - GI/Abdominal GI/Abdominal exam: Present: normal bowel sounds, soft. Absent: hepatomegaly, mass, splenomegaly - Extremities Exam Extremities exam: Present: full ROM, normal capillary refill, warm, radial pulses palpable and symmetrical. Absent: calf tenderness, joint swelling, normal inspection - Back Exam Back exam: Absent: CVA tenderness (L), CVA tenderness (R) - Neurological Exam Neurological exam: Present: alert, CN II-XII intact, oriented X3, no focal deficits - Psychiatric Psychiatric exam: Present: normal affect, normal mood - Skin Skin exam: Present: dry, intact, warm Internal Med - H&P Results - Labs CBC & Chem 7: 12/08/18 01:52 12/08/18 01:52 Labs: Short CBC 12/07/18 12/08/18 Range/Units 21:40 01:52 WBC 4.6 5.6 (4.3-11.1) K/mcL Hgb 10.4 L 10.1 L (12.9-16.9) g/dL Hct 35.3 L 33.7 L (37.5-50.1) % Plt Count 89 L 89 L (140-400) K/mcL Neutrophils # 2.2 2.3 (1.6-8.9) K/mcL BMP 12/07/18 12/08/18 21:40 01:52 Sodium 138 136 Potassium 4.7 4.6 Chloride 98 100 Carbon Dioxide 33 H 29 BUN 18 19 Creatinine 3.86 H 4.27 H Glucose 109 H 98 Calcium 7.1 L 6.8 L Cardiac Enzymes 12/07/18 12/08/18 Range/Units 21:40 01:52 Troponin I 0.47 H* 0.72 H* (< 0.04) ng/mL Liver Function 12/08/18 Range/Units 01:52 Total Bilirubin 0.4 (0.3-1.0) mg/dL AST 87 H (13-39) Units/L ALT 54 H (7-52) Units/L Alkaline Phosphatase 163 H (34-104) Units/L Albumin 2.6 L (3.5-5.7) g/dL - Impressions ITS Impressions Chest X-Ray 12/07/18 19:09 IMPRESSION: 1. Right chest tube present, similar in position compared to the previous exam. 2. No pneumothorax identified. 3. Small right pleural effusion. 4. Mild pulmonary vascular congestion. D/ / 12/07/2018 19:39:59 Devonte Birmingham MD / hannah Interpreting Provider: Devonte Birmingham MD Chest CTA 12/07/18 21:15 IMPRESSION: 1. No acute pulmonary emboli. 2. 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 3. Stable chronic mild left pleural effusion with chronic lower lobe atelectasis. 4. Right pleural drain in position with significant interval decrease in size of the left pleural fluid which is now mild with multifocal loculations. 5. Interval reinflation of the left lung with nonspecific peripheral patchy interstitial and alveolar opacities. This could represent residual atelectasis or possible interstitial fibrosis. No evidence of an acute pneumonia. D/ / 12/07/2018 23:04:28 Tristen Barillas MD / hannah Interpreting Provider: Tristen Barillas MD - Time Spent With Patient Total time spent is greater than 50% in coordination of care (as documented) at patient's floor/unit and/or counseling patient: - Attending Attestation I discussed the patient [place], past medical history, review of systems, lab data, imaging data, and exam findings with Dr. Hurley. I then saw and examined patient independently as well. He complains mostly of right-sided chest wall pain where his catheters is placed. He has had no difficulty breathing and has improved breathing since his catheter was placed. He denies any anginal type chest pain. However, troponin is elevated and his EKG is suggestive of possible ischemic changes. He remains on heparin drip and cardiology has been con sulted. Currently, he denies any anginal type chest pain. Furthermore, he has minimal pain at the chest tube catheter site. Other than my comments above and documented exam findings, I agree with Dr. Hurley's assessment and plan.
[2018-12-08] MEDS: Heparin 25,000 UNIT/250 ML D5W 25,000 UNIT/250 ML IV.SOLN IVC SCH (01:05)
[2018-12-08] MEDS ORDERED: Naloxone 0.4 MG/ML INJ IVP PRN (01:21)
[2018-12-08] MEDS ORDERED: Ondansetron 4 MG/2 ML VIAL IVP PRN (01:21)
[2018-12-08] MEDS ORDERED: Ipratropium/Albuterol Neb 3 ML IH PRN (01:22)
[2018-12-08] MEDS ORDERED: Nitroglycerin 0.4 MG TAB.SUBL SL PRN (01:22)
[2018-12-08] MEDS ORDERED: Metoprolol XL (24 HR) Succ 25 MG TAB.ER.24H PO SCH (01:30)
[2018-12-08 02:44] LABS: Red Cell Distribution Width 15.9 % (11.5-14.5)
[2018-12-08 02:46] LABS: Basophils # 0.1 K/mcL (0.0-0.2); Basophils % 0.9 %; Eosinophils # 1.5 K/mcL (0.0-0.6); Eosinophils % 27.5 %; Hematocrit 33.7 % (37.5-50.1); Hemoglobin 10.1 g/dL (12.9-16.9); Immature Granulocytes % 0.4 % (0-4); Immature Platelets 4.8 % (1.1-6.1); Lymphocytes # 1.1 K/mcL (0.6-4.6); Lymphocytes % 20.3 %; Mean Corpuscular Hemoglobin 29.7 pg (28.0-33.3); Mean Corpuscular Volume 99.1 fL (83.0-100.0); Mean Platelet Volume 10.4 fL (9.4-12.4); Monocytes # 0.6 K/mcL (0.0-1.3); Monocytes % 10.2 %; Neutrophils # 2.3 K/mcL (1.6-8.9); Segmented Neutrophils % 40.7 %; White Blood Count 5.6 K/mcL (4.3-11.1)
[2018-12-08 02:47] LABS: Platelet Count 89 K/mcL (140-400)
[2018-12-08 03:09] LABS: Albumin 2.6 g/dL (3.5-5.7); Albumin/Globulin Ratio 0.6 (1.1-2.2); Bilirubin,Total 0.4 mg/dL (0.3-1.0); Calcium 6.8 mg/dL (8.6-10.3); Globulin 4.2 g/dL (2.4-3.5); Magnesium 1.8 mg/dL (1.6-2.6); Potassium 4.6 mEq/L (3.5-5.1); Total Protein 6.8 g/dL (6.4-8.9); Troponin I 0.72 ng/mL (< 0.04)
[2018-12-08 03:15] LABS: Platelet Clumps Few (Not Present); Platelet Estimate Decreased (Normal); Polychromasia 1+ (Not Present); Reactive Lymphocytes Present (Not Present)
[2018-12-08] MEDS: Metoprolol XL (24 HR) Succ 25 MG TAB.ER.24H PO SCH (08:12)
--- NOTE | 2018-12-08 09:32 | Cardiology Consult Note ---
<Estuardo Franco - Last Filed: 12/08/18 13:31> Date of Encounter: 12/08/18 Time of Encounter: 09:30 Assessment and Plan (1) NSTEMI (non-ST elevated myocardial infarction) Current Visit: Yes Status: Acute - Presented with elevated troponin of 0.47 in emergency department; Subsequent level was 0.76 - Per review of prior records, patient has a baseline troponin of approximately 0.05-0.09 in the setting of ESRD - EKG demonstrated diffuse ST depressions with minimal ST elevation in inferior leads - Was started on heparin drip - He denied chest pain on presentation - He has an extensive cardiac history including history of CABGX3 - Recent cardiac workup on 11/10: LHC demonstrated triple-vessel disease, 2 out of 3 grafts occluded - Medical management was recommended at that time; patient reported compliance with ASA, BB, statin - Patient was asymptomatic on physical exam Plan: - Optimize medical management; no acute intervention is warranted at this time - Continue to trend troponin levels (2) Diastolic CHF, chronic Current Visit: No Status: Chronic - Patient has a known history of HFpEF - TTE on 11/10 demonstrated EF of 50-55% - BNP was elevated on arrival, but appears to be baseline - Nephrology consulted for dialysis - No evidence of acute volume overload at this time (3) Chronic respiratory failure Current Visit: Yes Status: Chronic - Patient normally wears 2 L of oxygen at home - History of volume overload due to CHF, cirrhosis, ESRD - Has Pleurx due to recurrent pleural effusions - Nephrology consulted for dialysis Qualifiers: Respiratory failure complication: hypoxia Qualified Code(s): J96.11 - Chronic respiratory failure with hypoxia (4) CAD (coronary artery disease) Current Visit: Yes Status: Chronic - Plan as above Qualifiers: Coronary Disease-Associated Artery/Lesion type: bypass graft [place] vs. transplanted heart: [place] heart Associated angina: without angina Qualified Code(s): I25.810 - Atherosclerosis of coronary artery bypass graft(s) without angina pectoris (5) HTN (hypertension) Current Visit: Yes Status: Chronic - Well-controlled at this time; continue home medications Qualifiers: Hypertension type: essential hypertension Qualified Code(s): I10 - Essential (primary) hypertension (6) HLD (hyperlipidemia) Current Visit: Yes Status: Chronic - Continue statin Qualifiers: Hyperlipidemia type: unspecified Qualified Code(s): E78.5 - Hyperlipidemia, unspecified Discussion w patient/family: The assessment and plan as outlined above was discussed with the patient and/or family members who expressed understanding and agreement. All questions were answered. Thank you for involving us in the care of your patient. Please call with any questions. History of Present Illness Consult date: 12/08/18 Consult reason: Elevated troponin Chief complaint: Malpositioning of Pleurx catheter History of present illness: Mr. Esquivel is a 78 year old male with a PMH of CAD s/p CABG, DM, ESRD, HLD, HTN, AAA, HFpEF, hx of bladder cancer, and cirrhosis who presented to [facility] ED after his home health nurse noticed that his Pleurx catheter changed position, from there was concern that it may have been pulled out. Pleurx is in place for recurrent pleural effusions. He complained of some pain around the insertion site but otherwise had no complaints. On arrival, vitals demonstrated a heart rate of 120 bpm, respiratory rate of 20/m, and an O2 sat of 100 on 2 L of oxygen. Labs demonstrated an elevated troponin at 0.47. Subsequent level was 0.72. BNP was elevated at 1762, and hemoglobin was low at 10.4, which appeared to be baseline per chart review. EKG demonstrated diffuse ST depressions with minimal ST elevation in inferior leads. These changes are new compared to previous EKG. Patient had a recent cardiac workup in October 2018 including an LHC, which demonstrated triple-vessel CAD, CABG 3, with 2 of 3 grafts occluded. Medical management was recommended at the time. Cardiology service is consulted for elevated troponin, which has increased since arrival. Patient was seen and examined at bedside. His only complaint today is mild discomfort where his Pleurx drain is on the right side. He otherwise denies having chest pain, palpitations, dizziness, lightheadedness, fever, chills, nausea, or vomiting. Troponin has slightly increased since initial presentation. Etiology is unknown; possibly due to demand ischemia. No acute intervention is required at this time. We will continue to trend troponin levels. Past Med Surg Social Fam HX - Past Medical History Medical history: aortic aneurysm, arthritis, CHF, coronary artery disease, diabetes, dialysis, hyperlipidemia, hypertension, renal disease Additional medical history: BLADDER NECK CONTRACTURE, SQUAMOUS CELL CANCER. dialysis M,W, F Psychiatric history: anxiety, depression - Past Surgical History Surgical History: angioplasty/stent, coronary bypass (CABG), orthopedic, other, other Additional surgical history: Back surgery (1998), Right hand middle finger a mputation (date unknown), triple bypass - Social History Smoking Status: Former smoker Smokeless Tobacco Status: No Alcohol use: none Drug use: none - Family History Father Adopted: No Family Member Ethnicity: Non- Living Status: Hx Family Cardiac Disorders: Yes ([place]) Mother Adopted: No Family Member Ethnicity: Non- Living Status: Hx Family Cancer: Yes Brother Family Member Ethnicity: Non- Living Status: Still Living Sister Adopted: No Family Member Ethnicity: Non- Living Status: Still Living Hx Family Cardiac Disorders: Yes Hx Family Respiratory Disorders: No Hx Family Cancer: Yes Hx Family GI Disorders: No Hx Family Endocrine Disorder: Yes Hx Family Neuromuscular Disorders: No Hx Family Neurologic Disorders: No Hx Family HEENT Disorders: No Hx Family Autoimmune Disorders: No Medications and Allergies Venlafaxine XR (24 HR) [Effexor Xr] 150 mg PO 199901/15/18 [History] Trazodone HCl 100 mg PO HS PRN 01/31/18 [History] Calcium Acetate [Phos-LO] 1,334 mg PO TIDWM 07/03/18 [History] Nitroglycerin [Nitrostat] 0.4 mg SL Q5M PRN 07/04/18 [History] Aspirin [Lo-Dose Aspirin EC] 81 mg PO 1600 08/23/18 [History] Acetaminophen [Tylenol 8 Hour] 650 mg PO Q6H PRN 10/17/18 [History] Guaifenesin [Mucinex] 600 mg PO BID PRN 10/17/18 [History] Ipratropium/Albuterol Neb [Duoneb] 3 ml IH Q6HR PRN 10/17/18 [History] Gabapentin [Neurontin] 100 mg PO TID 11/09/18 [History] Ondansetron ODT [Zofran ODT] 4 mg SL Q6HR PRN 11/09/18 [History] Atorvastatin Calcium 80 mg PO DAILY@199911/18/18 [History] Tramadol HCl [Ultram] 50 mg PO BID PRN 11/18/18 [History] Metoprolol XL (24 HR) Succ [Toprol Xl] 25 mg PO Q24H tab.er.24h 11/27/18 [Rx] Allergy/AdvReac Type Severity Reaction Status Date / Time No Known Allergies Allergy Verified 11/09/18 07:04 All Systems Review: The remainder of the systems were reviewed and are negative Physical Examination Vital Signs, Last 4 Hours Temp Pulse Resp BP Pulse Ox 12/08/18 08:03 75 112/61 100 12/08/18 07:58 98.0 F 76 17 95/61 100 Results 12/08/18 01:52 12/08/18 01:52 Lab Results 12/07/18 12/07/18 12/07/18 21:40 21:40 21:40 WBC 4.6 Hgb 10.4 L Hct 35.3 L Plt Count 89 L INR Sodium 138 Potassium 4.7 Chloride 98 Carbon Dioxide 33 H BUN 18 Creatinine 3.86 H Glucose 109 H Calcium 7.1 L Magnesium Total Bilirubin AST ALT Alkaline Phosphatase Troponin I 0.47 H* B-Natriuretic Peptide 12/07/18 12/08/18 12/08/18 21:40 00:11 01:52 WBC 5.6 Hgb 10.1 L Hct 33.7 L Plt Count 89 L INR 1.2 Sodium Potassium Chloride Carbon Dioxide BUN Creatinine Glucose Calcium Magnesium Total Bilirubin AST ALT Alkaline Phosphatase Troponin I B-Natriuretic Peptide 1762 H 12/08/18 01:52 WBC Hgb Hct Plt Count INR Sodium 136 Potassium 4.6 Chloride 100 Carbon Dioxide 29 BUN 19 Creatinine 4.27 H Glucose 98 Calcium 6.8 L Magnesium 1.8 Total Bilirubin 0.4 AST 87 H ALT 54 H Alkaline Phosphatase 163 H Troponin I 0.72 H* B-Natriuretic Peptide Consult Discharge Plan - Plan Referrals: David Strange DO [Primary Care Provider] - <Heather Reid - Last Filed: 12/08/18 16:08> Date of Encounter: 12/08/18 - Attending Attestation Patient was seen and evaluated independently by me. Findings, assessment and plan were discussed at length with patient, questions answered. Agree with nurse practitioner's/resident's documentation. Addition as follows, 78 yoCM ho 3-V CAD CABGX3 05/2017 last C [id number] (for recurrent NSTEMI) revealed only 1/3 grafts patent (medical management), EF 50-55%, recent R-plurx catheter for pleural effusion, ESRD on HD, cirrhosis, DM/HTN/HLD. P/w severe positional R-pleux catheter site pain with sinus tachycardia 120s. No PE on CTA. ECG S tachy with diffuse STD (similar to prior ECGs). Trop 1.8. Pt denied chest pain/pressure or worsening dyspnea. VSS, decreased B/L AE, no W/R/C, RR, chronic 1+ BL LE edema. A: Troponin elevation at the setting of sinus tachy due to R-plerX site pain, type II likely CAD CABG, only 1/3 grafts patent with recurrent ischemic ECG and NSTEMI, deemed not a candidate for further revascularization Pleural effusion ESRD on HD P: cycle trop till down trending limited TTE for LVEF d/c empirical heparin drip after 48-72 hours c/w ASA, statin can up toprol if persistent tachycardia without hypotension Heather Reid MD, PhD [id number] TTE Impressions: Technically adequate exam. LVEF 50-55%. Definity echo contrast was used. There is no LV thrombus. [id number] [facility] for recurrent NSTEMI Impressions: Triple vessel coronary artery disease. Segmental LV dysfunction with preserved LV systolic function. EF 55% S/P CABG 1 of 3 patent bypass grafts. Coronary Dominance: right Lesion Findings/Interventions * Left Main Coronary Artery There is a 30% stenosis in the distal left main. * Left Anterior Descending There is a 40% stenosis in the Proximal LAD- ectatic, heavily calcified There is a 99% stenosis in the Mid LAD. Mid and distal LAD fill via patent CHEN graft. * Circumflex There is a 30% stenosis in the Proximal Circumflex- ectatic, heavily calcified There is a 100% stenosis in the 1st Marginal- [employer]. Fills via L to L collaterals. * Right Coronary Artery There is a 30% stenosis in the Proximal RCA. There is a 60% stenosis in the Mid RCA- calcified There is a 100% stenosis in the Right PDA- [employer]. Additional Findings: Grafts * The left internal mammary graft to the LAD is patent. * The saphenous vein graft to the 1st Diagonal is occluded. * The saphenous vein graft to the Right PDA is occluded. Assessment and Plan Discussion w patient/family: The assessment and plan as outlined above was discussed with the patient and/or family members who expressed understanding and agreement. All questions were answered. Thank you for involving us in the care of your patient. Please call with any questions. History of Present Illness History of present illness: Mr. Esquivel is a 78 year old male All Systems Review: The remainder of the systems were reviewed and are negative Physical Examination Vital Signs, Last 4 Hours Temp Pulse Resp BP Pulse Ox 12/08/18 11:57 98.3 F 76 18 104/65 100 Results 12/08/18 01:52 12/08/18 01:52 Lab Results 12/07/18 12/07/18 12/07/18 21:40 21:40 21:40 WBC 4.6 Hgb 10.4 L Hct 35.3 L Plt Count 89 L INR Sodium 138 Potassium 4.7 Chloride 98 Carbon Dioxide 33 H BUN 18 Creatinine 3.86 H Glucose 109 H Calcium 7.1 L Magnesium Total Bilirubin AST ALT Alkaline Phosphatase Troponin I 0.47 H* B-Natriuretic Peptide 12/07/18 12/08/18 12/08/18 21:40 00:11 01:52 WBC 5.6 Hgb 10.1 L Hct 33.7 L Plt Count 89 L INR 1.2 Sodium Potassium Chloride Carbon Dioxide BUN Creatinine Glucose Calcium Magnesium Total Bilirubin AST ALT Alkaline Phosphatase Troponin I B-Natriuretic Peptide 1762 H 12/08/18 12/08/18 01:52 09:32 WBC Hgb Hct Plt Count INR Sodium 136 Potassium 4.6 Chloride 100 Carbon Dioxide 29 BUN 19 Creatinine 4.27 H Glucose 98 Calcium 6.8 L Magnesium 1.8 Total Bilirubin 0.4 AST 87 H ALT 54 H Alkaline Phosphatase 163 H Troponin I 0.72 H* 1.85 H* B-Natriuretic Peptide
--- NOTE | 2018-12-08 10:37 | Event Note ---
Date of Encounter: 12/08/18 Time of Encounter: 10:36 Patient complains of right upper paraspinal pain and tenderness. No chest pain at this time. Troponins trending up to 1.85 today. On IV heparin drip. Cardiology following. We will follow recommendations.
[2018-12-08] MEDS ORDERED: Acetaminophen 325 MG TABLET PO PRN (14:36)
--- NOTE | 2018-12-08 14:39 | Nephrology Consult Note ---
<KarlabrandyjaisonKorin B - Last Filed: 12/08/18 14:36> Date of Encounter: 12/08/18 Time of Encounter: 14:36 Assessment and Plan (1) ESRD (end stage renal disease) on dialysis Status: Chronic HD MWF at [facility]. Plan for Hd tomorrow. HD completed yesterday without complication. Renal diet. Strict I/O Fluid restriction. Avoid nephrotoxins and renal dose. (2) Elevated troponin I level Status: Acute Per cardio. (3) NSTEMI (non-ST elevated myocardial infarction) Status: Acute Per cardio. History of Present Illness - Reason for Consult Consult date: 12/08/18 end stage renal disease Requesting physician: Rishabh Walter - Chief Complaint pleurx catheter malfunction - History of Present Illness Mr. Esquivel is a 78 year old male who presented to ED for malfunctioing pleurx drain. The ECF where he resides reported that the drain was leaking and possibly out of his back. He was transported to ED for evaluation. PMH: CHF, coronary artery disease, diabetes, CABG with stents and chronic pleural effusion. When the patient was inpatient last month, the family had decided to stop HD and make the patient a DNR-CC. However the next day, the patient wanted to resume HD. HD regimen is MWF in [facility]. Last session was yesterday 12/07/18 without complication. [facility] were consulted to manage HD. Plan for HD tomorrow. He resides in an F. Denies tobacco, etoh, or illicit drug use. Past Med Surg Social Fam HX - Past Medical History Medical history: aortic aneurysm, arthritis, CHF, coronary artery disease, diabetes, dialysis, hyperlipidemia, hypertension, renal disease Additional medical history: BLADDER NECK CONTRACTURE, SQUAMOUS CELL CANCER. 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), triple bypass - Social History Smoking Status: Former smoker Smokeless Tobacco Status: No Alcohol use: none Drug use: none - Family History Father Adopted: No Family Member Ethnicity: Non- Living Status: Hx Family Cardiac Disorders: Yes ([place]) Mother Adopted: No Family Member Ethnicity: Non- Living Status: Hx Family Cancer: Yes Brother Family Member Ethnicity: Non- Living Status: Still Living Sister Adopted: No Family Member Ethnicity: Non- Living Status: Still Living Hx Family Cardiac Disorders: Yes Hx Family Respiratory Disorders: No Hx Family Cancer: Yes Hx Family GI Disorders: No Hx Family Endocrine Disorder: Yes Hx Family Neuromuscular Disorders: No Hx Family Neurologic Disorders: No Hx Family HEENT Disorders: No Hx Family Autoimmune Disorders: No Medications and Allergies Venlafaxine XR (24 HR) [Effexor Xr] 150 mg PO DAILY 01/15/18 [History] Trazodone HCl 100 mg PO HS PRN 01/31/18 [History] Calcium Acetate [Phos-LO] 1,334 mg PO TIDWM 07/03/18 [History] Nitroglycerin [Nitrostat] 0.4 mg SL Q5M PRN 07/04/18 [History] Aspirin [Lo-Dose Aspirin EC] 81 mg PO DAILY 08/23/18 [History] Guaifenesin [Mucinex] 600 mg PO BID PRN 10/17/18 [History] Ondansetron ODT [Zofran ODT] 4 mg SL Q6HR PRN 11/09/18 [History] Atorvastatin Calcium 80 mg PO DAILY 11/18/18 [History] Acetaminophen [Tylenol] 650 mg PO Q6HR PRN 12/09/18 [History] Ipratropium/Albuterol Sulfate [Iprat-Albut 0.5-3(2.5) mg/3 ml] 3 ml IH Q6H PRN 12/09/18 [History] Metoprolol Succinate [Toprol Xl] 25 mg PO DAILY 12/09/18 [History] Gabapentin [Neurontin] 100 mg PO TID #30 capsule 12/10/18 [Rx] LORazepam [Ativan] 0.5 mg PO BID 5 Days #10 tablet 12/10/18 [Rx] OxyCODONE Oral CONC [Oxycodone Oral Conc] 5 - 10 mg SL Q4H PRN 5 Days #20 oral.syg 12/10/18 [Rx] Allergy/AdvReac Type Severity Reaction Status Date / Time No Known Allergies Allergy Verified 11/09/18 07:04 Review of Systems All Systems review (narrative): The remainder of the systems are negative. Constitutional: no chills, no fatigue, no fever(s) Cardiovascular: no chest pain, no dyspnea, no dyspnea on exertion Respiratory: no cough Gastrointestinal: no diarrhea, no nausea, no vomiting Genitourinary Male: no urinary frequency, no urinary hesitancy, no urinary urgency Exam - Vital Signs Vital signs: Initial Vital Signs Temp Pulse Resp BP Pulse Ox 98.1 F 120 20 133/81 100 12/07/18 18:52 12/07/18 18:52 12/07/18 18:52 12/07/18 18:52 12/07/18 18:52 Vital Signs - Last 8 Hours Temp Pulse Resp BP Pulse Ox 12/08/18 11:57 98.3 F 76 18 104/65 100 12/08/18 08:03 75 112/61 100 12/08/18 07:58 98.0 F 76 17 95/61 100 Intake and Output 12/07/18 12/08/18 12/08/18 23:59 07:59 15:59 Intake Total 360 / 427.5 67.5 / 427.5 Output Total 0 / 0 0 / 0 Balance 360 / 427.5 67.5 / 427.5 Intake: IV Fluids 67.5 / 67.5 Heparin 25,000 UNIT/250 ML D5W 67.5 / 67.5 25,000 unit In 250 ml @ 11.1 UNIT/KG/HR 10.07 mls/hr IVC . Q24H [facility] Rx#:[id number] Oral 360 / 360 0 / 360 Output: Urine 0 / 0 0 / 0 Wound Drainage 0 / 0 Right Back 0 / 0 Other: Meal Breakfast Percent of Meal Consumed 15% Weight 90.718 kg 93.2 kg Blood Glucose* 100 Patient Weight 12/08/18 23:59 Weight 93.2 kg - General Appearance General appearance: chronically ill, frail EENT: ATNC, hearing intact, vision intact Neck: supple Respiratory: clear Cardiology: no edema, normal S1, normal S2 - Dialysis Access Dialysis Vascular Access: Arteriovenous Fistula thrill: Yes bruit: Yes Gastrointestinal: normoactive bowel sounds, no tenderness, no guarding Integumentary: no rash, warm and dry Neurologic: alert and oriented x3 Musculoskeletal: no deformities, no erythema Psychiatric: mood/affect appropriate, cooperative Results - Lab Results 12/08/18 01:52 12/08/18 01:52 Most recent lab results 12/08/18 01:52 Calcium 6.8 L Magnesium 1.8 Consult Discharge Plan - Plan Instructions: Anxiety (DC) Referrals: David Strange DO [Primary Care Provider] - (In 1-2 weeks) Prescriptions: LORazepam [Ativan] 0.5 mg PO BID 5 Days #10 tablet Gabapentin [Neurontin] 100 mg PO TID #30 capsule OxyCODONE Oral CONC [Oxycodone Oral Conc] 5 - 10 mg SL Q4H PRN 5 Days #20 oral.syg PRN Reason: MOderate to severe pain <DgmarshallmedinarasheedAdelfomorgan Rios - Last Filed: 12/16/18 01:15> Date of Encounter: 12/08/18 Assessment and Plan (1) ESRD (end stage renal disease) on dialysis Status: Chronic (2) NSTEMI (non-ST elevated myocardial infarction) Status: Acute (3) Elevated troponin I level Status: Acute (4) Chronic pleural effusion Status: Acute Exam - Vital Signs Vital signs: Initial Vital Signs Temp Pulse Resp BP Pulse Ox 98.1 F 120 20 133/81 100 12/07/18 18:52 12/07/18 18:52 12/07/18 18:52 12/07/18 18:52 12/07/18 18:52 Results - Lab Results 12/10/18 05:51 12/10/18 05:51 - Attending Attestation I examined this patient and my medical decision-making was reviewed with the Resident Physician/EARLY CHILDHOOD ASSISTANT. I agree with the documented findings, disposition and treatment plan as described except to the extent set forth below. Pt seen and examined and in brief; 78 y o male with PMH of CAD s/p stents, CABG, CHF, DM, HTN, ESRD on HD and recurrent pleural effusion s/p pleurx catheter at last admission now admiteed with pleurx drain issues. s/p HD yesterday. On exam; chronically ill male NAD, heart S1S2, lungs good areation with decreased BS bases bilat, Ext with no edema. Will plan for HD tomorrow per his schedule. Lytes stable. Pleurs catheter managment per primary and pulm.
[2018-12-08] MEDS: Gabapentin 100 MG CAPSULE PO SCH ×2 (15:43→20:05)
[2018-12-08] MEDS: Aspirin Enteric Coated 81 MG Tablet PO SCH (15:43)
[2018-12-08] MEDS: Calcium Acetate 667 MG CAPSULE PO SCH (17:04)
[2018-12-08] MEDS ORDERED: Perflutren Lipid Microsphere 1.3 ML in 0.9 % Sodium Chloride 8.7 ML IVP ONE (19:47)
[2018-12-08] MEDS: traZODone 50 MG TABLET PO PRN (20:05)
[2018-12-08] MEDS: Venlafaxine XR (24 HR) 150 MG CAP.ER.24H PO SCH (20:05)
[2018-12-09 00:36] LABS: Basophils # 0.1 K/mcL (0.0-0.2); Basophils % 0.8 %; Eosinophils # 1.4 K/mcL (0.0-0.6); Eosinophils % 22.5 %; Hematocrit 34.9 % (37.5-50.1); Hemoglobin 9.9 g/dL (12.9-16.9); Immature Granulocytes % 0.3 % (0-4); Lymphocytes # 1.6 K/mcL (0.6-4.6); Lymphocytes % 26.1 %; Mean Corpuscular HGB Conc 28.4 g/dL (31.6-35.5); Mean Corpuscular Hemoglobin 29.4 pg (28.0-33.3); Mean Corpuscular Volume 103.6 fL (83.0-100.0); Mean Platelet Volume 10.1 fL (9.4-12.4); Monocytes # 0.6 K/mcL (0.0-1.3); Monocytes % 9.3 %; Neutrophils # 2.5 K/mcL (1.6-8.9); Red Blood Count 3.37 M/mcL (4.19-5.50); Red Cell Distribution Width 16.3 % (11.5-14.5); White Blood Count 6.2 K/mcL (4.3-11.1)
[2018-12-09 00:42] LABS: Hypochromasia Present (Not Present); Platelet Count 94 K/mcL (140-400)
[2018-12-09 00:48] LABS: Calcium 7.2 mg/dL (8.6-10.3); Potassium 5.7 mEq/L (3.5-5.1)
[2018-12-09] MEDS ORDERED: *HR* Heparin 10,000 UNIT/10 ML VIAL IV PRN (08:23)
[2018-12-09] MEDS ORDERED: 0.9 % Sodium Chloride 250 ML IVC PRN (08:23)
[2018-12-09] MEDS ORDERED: 0.9 % Sodium Chloride 1,000 ML PRIME SCH (08:30)
--- NOTE | 2018-12-09 09:08 | Nephrology Progress Note ---
Date of Encounter: 12/09/18 Time of Encounter: 09:05 - Assessment and Plan (1) ESRD (end stage renal disease) on dialysis Current Visit: Yes Status: Chronic HD MWF at [facility]. HD ordered for today. Renal diet. Strict I/O Fluid restriction. Avoid nephrotoxins and renal dose. (2) Elevated troponin I level Current Visit: Yes Status: Acute Per cardio. (3) NSTEMI (non-ST elevated myocardial infarction) Current Visit: Yes Status: Acute Per cardio. (4) Chronic pleural effusion Current Visit: Yes Status: Acute Pleurx drain dressing clean dry and intact. Subjective Principal diagnosis: malfunctioning pleurx Interval history: He should not seen and examined. Denies chest pain or shortness of breath. Denies nausea, vomiting, diarrhea. Admits to overall feeling better and wonders when he can go home. Objective - Vital Signs Vital signs: Vital Signs Temp Pulse Resp BP Pulse Ox 12/08/18 23:20 98.0 F 80 17 115/63 90 12/08/18 15:59 98.9 F 84 16 98/55 97 12/08/18 11:57 98.3 F 76 18 104/65 100 Intake and Output 12/08/18 12/09/18 12/09/18 23:59 07:59 15:59 Intake Total 120 / 618.4 Output Total 0 / 0 Balance 120 / 618.4 0 / 0 Intake: Oral 120 / 480 Output: Wound Drainage 0 / 0 Right Back 0 / 0 Other: Meal Dinner Percent of Meal Consumed 25% Blood Glucose* 75 - General Appearance General appearance: Present: well-developed, well-nourished EENT: Present: ATNC, hearing intact, vision intact Neck: Present: supple Respiratory: Present: clear Cardiology: Present: no edema, normal S1, normal S2 Dialysis Vascular Access: Arteriovenous Fistula thrill: Yes bruit: Yes Gastrointestinal: Present: normoactive bowel sounds, no tenderness, no guarding Integumentary: Present: no rash, warm and dry Additional Comments: Pleurx dressing clean dry and intact. Neurologic: Present: alert and oriented x3 Musculoskeletal: Present: no deformities, no erythema Psychiatric: Present: mood/affect appropriate, cooperative - Lab 12/09/18 00:16 12/09/18 00:16 Most recent lab results 12/09/18 00:16 Calcium 7.2 L Consult Discharge Plan - Plan Referrals: David Strange DO [Primary Care Provider] -
--- NOTE | 2018-12-09 13:04 | Cardiology Progress Note ---
<Estuardo Franco - Last Filed: 12/09/18 14:58> Date of Encounter: 12/09/18 Time of Encounter: 13:04 Assessment and Plan (1) NSTEMI (non-ST elevated myocardial infarction) Current Visit: Yes Status: Acute - Presented with elevated troponin of 0.47 in emergency department; Subsequent level was 0.76 - Per review of prior records, patient has a baseline troponin of approximately 0.05-0.09 in the setting of ESRD - EKG demonstrated diffuse ST depressions with minimal ST elevation in inferior leads - Was started on heparin drip - He denied chest pain on presentation - He has an extensive cardiac history including history of CABGX3 - Recent cardiac workup on 11/10: LHC demonstrated triple-vessel disease, 2 out of 3 grafts occluded - Medical management was recommended at that time; patient reported compliance with ASA, BB, statin - Patient was asymptomatic on physical exam Plan: - Optimize medical management; no acute intervention is warranted at this time - Discontinue empirical heparin drip after 48-72 hours - Repeat troponin levels have been ordered to ensure that there downtrending (2) Diastolic CHF, chronic Current Visit: No Status: Chronic - Patient has a known history of HFpEF - TTE on 11/10 demonstrated EF of 50-55% - BNP was elevated on arrival, but appears to be baseline - No evidence of acute volume overload at this time (3) Chronic respiratory failure Current Visit: Yes Status: Chronic - Patient normally wears 2 L of oxygen at home - History of volume overload due to CHF, cirrhosis, ESRD - Has Pleurx due to recurrent pleural effusions - Nephrology consulted for dialysis Qualifiers: Respiratory failure complication: hypoxia Qualified Code(s): J96.11 - Chronic respiratory failure with hypoxia (4) CAD (coronary artery disease) Current Visit: Yes Status: Chronic - Plan as above Qualifiers: Coronary Disease-Associated Artery/Lesion type: bypass graft [place] vs. transplanted heart: [place] heart Associated angina: without angina Qualified Code(s): I25.810 - Atherosclerosis of coronary artery bypass graft(s) without angina pectoris (5) HTN (hypertension) Current Visit: Yes Status: Chronic - Well-controlled at this time; continue home medications Qualifiers: Hypertension type: essential hypertension Qualified Code(s): I10 - Essential (primary) hypertension (6) HLD (hyperlipidemia) Current Visit: Yes Status: Chronic - Continue statin Qualifiers: Hyperlipidemia type: unspecified Qualified Code(s): E78.5 - Hyperlipidemia, unspecified Discussion w patient/family: The assessment and plan as outlined above was discussed with the patient and/or family members who expressed understanding and agreement. All questions were answered. Thank you for involving us in the care of your patient. Please call with any questions. Subjective Principal diagnosis: malfunctioning pleurx Interval history: Patient seen and examined at bedside; underwent dialysis earlier today. States that he has some discomfort in his Pleurx catheter. He otherwise has no complaints today. We will continue to follow patient's troponin levels to ensure that there downtrending. Otherwise, no acute intervention is indicated at this time. Objective General: Conversant, No Apparent Distress HEENT: Atraumatic, Normocephaly, Mucus Membranes Moist Neck: No JVD, Normal carotid pulses Cardiac: Reg Rate and Rhythm, Normal S1 and S2, No Murmur Lungs: Other (Diminished breath sounds bilaterally) Neuro: Alert and responsive, No focal deficits noted Skin: Other (Pleurx catheter present on posterior right thorax) Extremities: No Clubbing, No Cyanosis, No Edema Results 12/09/18 00:16 12/09/18 00:16 Lab Results 12/09/18 12/09/18 00:16 00:16 WBC 6.2 Hgb 9.9 L Hct 34.9 L Plt Count 94 L Sodium 132 L Potassium 5.7 H Chloride 98 Carbon Dioxide 27 BUN 27 H Creatinine 5.31 H Glucose 88 Calcium 7.2 L Consult Discharge Plan - Plan Referrals: David Strange DO [Primary Care Provider] - <Heather Reid - Last Filed: 12/09/18 19:35> Date of Encounter: 12/09/18 Assessment and Plan Discussion w patient/family: The assessment and plan as outlined above was discussed with the patient and/or family members who expressed understanding and agreement. All questions were answered. Thank you for involving us in the care of your patient. Please call with any questions. Objective Vital Signs, Last 4 Hours Temp Pulse Resp BP Pulse Ox 12/09/18 17:22 98.4 F 111 16 144/81 99 12/09/18 16:15 98.8 F 110 20 114/65 100 12/09/18 13:58 97.6 F 93 23 118/76 92 Results 12/09/18 00:16 12/09/18 00:16 Lab Results 12/09/18 12/09/18 12/09/18 00:16 00:16 13:50 WBC 6.2 Hgb 9.9 L Hct 34.9 L Plt Count 94 L Sodium 132 L Potassium 5.7 H Chloride 98 Carbon Dioxide 27 BUN 27 H Creatinine 5.31 H Glucose 88 Calcium 7.2 L Troponin I 1.43 H* - Attending Attestation Interim Trop downtrending. TTE EF 50-55%. No chest pain, dyspnea. --------initial---- 78 yoCM ho 3-V CAD CABGX3 05/2017 last [facility] [id number] (for recurrent NSTEMI) revealed only 1/3 grafts patent (medical management), EF 50-55%, recent R-plurx catheter for pleural effusion, ESRD on HD, cirrhosis, DM/HTN/HLD. P/w severe positional R-pleux catheter site pain with sinus tachycardia 120s. No PE on CTA. ECG S tachy with diffuse STD (similar to prior ECGs). Trop 1.8. Pt denied chest pain/pressure or worsening dyspnea. VSS, decreased B/L AE, no W/R/C, RR, chronic 1+ BL LE edema. A: Troponin elevation at the setting of sinus tachy due to R-plerX site pain, type II likely CAD CABG, only 1/3 grafts patent with recurrent ischemic ECG and NSTEMI, deemed not a candidate for further revascularization Pleural effusion ESRD on HD P: d/c empirical heparin drip after 48-72 hours c/w ASA, statin can up toprol if persistent tachycardia without hypotension no further inpatient cardiac w/u Heather Reid MD, PhD
[2018-12-09] MEDS: Calcium Acetate 667 MG CAPSULE PO SCH ×3 (13:45→16:16)
[2018-12-09] MEDS: Gabapentin 100 MG CAPSULE PO SCH ×3 (13:45→21:01)
[2018-12-09] MEDS: Aspirin Enteric Coated 81 MG Tablet PO SCH (13:45)
[2018-12-09] MEDS: Metoprolol XL (24 HR) Succ 25 MG TAB.ER.24H PO SCH (13:45)
--- NOTE | 2018-12-09 16:46 | Internal Med Progress Note ---
Hospitalist Progress Note - Encounter Date of Encounter: 12/09/18 Time of Encounter: 16:47 - Subjective Interval History: Patient is awake and alert. Doing well overall. Seen in dialysis. Reports that his back pain improved after he received Flexeril yesterday. He does complain of itching in his back. No nausea or vomiting. No chest pain. - Exam Vitals: Temp Pulse Resp BP Pulse Ox 98.8 F 110 20 114/65 100 12/09/18 16:15 12/09/18 16:15 12/09/18 16:15 12/09/18 16:15 12/09/18 16:15 Exam: General: Patient is alert, no acute distress, oriented x 3 Respiratory: Diminished breath sounds at both bases. Cardiovascular: Regular rate and rhythm. s1 and s2 normal No clicks, rubs, gallops, or murmurs. No pedal edema Abdomen: Abdomen is soft, nontender. Bowel sounds are present Musculoskeletal: Spontaneously moving all extremities Skin: warm, dry, intact. Neuro: Alert oriented x 3 normal cranial nerves, no focal deficits - Assessment and Plan (1) NSTEMI (non-ST elevated myocardial infarction) Current Visit: Yes Status: Acute (2) CHF (congestive heart failure) Current Visit: Yes Status: Chronic (3) Chronic respiratory failure with hypoxia Current Visit: Yes Status: Acute (4) ESRD (end stage renal disease) on dialysis Current Visit: Yes Status: Chronic (5) HTN (hypertension) Current Visit: Yes Status: Chronic (6) Liver cirrhosis Current Visit: Yes Status: Chronic (7) Thrombocytopenia Current Visit: Yes Status: Chronic (8) Type 2 diabetes mellitus Current Visit: Yes Status: Chronic DVT Prophylaxis: On IV heparin - Summary of Assessment and Plan Summary of Assessment and Plan: Acute non-ST elevation [place]: Continue IV heparin. Cardiology consult appreciated. Medical management recommended. Patient on aspirin, statin and beta claudia. Recommend to continue IV heparin for 48-72 hours. Troponins trending down. End-stage renal disease on hemodialysis: Patient dialyzed today. Chronic pleural effusion with Pleurx catheter in place: Drain as needed. Chronic diastolic congestive heart failure: Not in acute exacerbation. Continue home medications. Essential hypertension: Blood pressure is well controlled. Chronic respiratory failure: Continue O2 supplementation. Moderate risk for complications. - Time Spent with Patient Total time spent is greater than 50% in coordination of care (as documented) at patient's floor/unit and/or counseling patient: Internal Medicine: Result - Labs CBC & Chem 7: 12/09/18 00:16 12/09/18 00:16 Labs: Short CBC 12/09/18 Range/Units 00:16 WBC 6.2 (4.3-11.1) K/mcL Hgb 9.9 L (12.9-16.9) g/dL Hct 34.9 L (37.5-50.1) % Plt Count 94 L (140-400) K/mcL Neutrophils # 2.5 (1.6-8.9) K/mcL BMP 12/09/18 00:16 Sodium 132 L Potassium 5.7 H Chloride 98 Carbon Dioxide 27 BUN 27 H Creatinine 5.31 H Glucose 88 Calcium 7.2 L Cardiac Enzymes 12/09/18 Range/Units 13:50 Troponin I 1.43 H* (< 0.04) ng/mL - ABG Interpretation ABG results: PT/INR, D-dimer PT 13.5 Seconds (9.4-12.1) H 12/08/18 00:11 - Impressions Impressions Echocardiogram Limited Views 12/08/18 16:04 Impressions: LVEF 50-55%. Normal LV chamber size, wall thickness and low normal function. Mild segmental left ventricular systolic dysfunction. Atypical septal motion consistent with post-operative status. Left Ventricular Wall Motion: Rest Echo Findings The apical anterior and apical lateral lim were hypokinetic. All other wall segments showed normal motion. Findings: Study Quality * Technically adequate exam. ECG Findings * Sinus rhythm with BBB. Left Ventricle * LVEF 50-55%. * Normal LV chamber size, wall thickness and low normal function. * Mild segmental left ventricular systolic dysfunction. * Atypical septal motion consistent with post-operative status. Consult Discharge Plan - Plan Referrals: David Strange DO [Primary Care Provider] - (2) CHF (congestive heart failure) Qualifiers: Heart failure type: diastolic Heart failure chronicity: acute Qualified Code(s): I50.31 - Acute diastolic (congestive) heart failure (5) HTN (hypertension) Qualifiers: Hypertension type: essential hypertension Qualified Code(s): I10 - Essential (primary) hypertension (6) Liver cirrhosis Qualifiers: Hepatic cirrhosis type: unspecified hepatic cirrhosis Ascites presence: with ascites Qualified Code(s): K74.60 - Unspecified cirrhosis of liver; R18.8 - Other ascites (8) Type 2 diabetes mellitus Qualifiers: Diabetes mellitus intermediate insulin use: without intermediate use Diabetes mellitus complication status: with hypoglycemia Diabetes mellitus complication detail: with coma Qualified Code(s): E11.641 - Type 2 diabetes mellitus with hypoglycemia with coma
[2018-12-09] MEDS: traZODone 50 MG TABLET PO PRN (21:01)
[2018-12-09] MEDS: Venlafaxine XR (24 HR) 150 MG CAP.ER.24H PO SCH (21:01)
[2018-12-09] MEDS: Heparin 25,000 UNIT/250 ML D5W 25,000 UNIT/250 ML IV.SOLN IVC SCH (21:21)
[2018-12-10 07:14] LABS: Immature Granulocytes % 0.2 % (0-4); Red Cell Distribution Width 16.1 % (11.5-14.5)
[2018-12-10 07:16] LABS: Basophils % 0.8 %; Eosinophils # 1.2 K/mcL (0.0-0.6); Eosinophils % 24.3 %; Hemoglobin 9.1 g/dL (12.9-16.9); Immature Platelets 4.6 % (1.1-6.1); Lymphocytes # 1.3 K/mcL (0.6-4.6); Lymphocytes % 25.9 %; Mean Corpuscular HGB Conc 30.3 g/dL (31.6-35.5); Mean Corpuscular Hemoglobin 30.4 pg (28.0-33.3); Mean Corpuscular Volume 100.3 fL (83.0-100.0); Mean Platelet Volume 10.2 fL (9.4-12.4); Monocytes # 0.6 K/mcL (0.0-1.3); Neutrophils # 1.9 K/mcL (1.6-8.9); Red Blood Count 2.99 M/mcL (4.19-5.50); Segmented Neutrophils % 37.8 %
[2018-12-10 07:22] LABS: Platelet Count 99 K/mcL (140-400)
[2018-12-10 07:28] LABS: Platelet Estimate Decreased (Normal)
[2018-12-10 07:31] LABS: Calcium 7.8 mg/dL (8.6-10.3); Potassium 4.7 mEq/L (3.5-5.1); Troponin I 0.99 ng/mL (< 0.04)
[2018-12-10] MEDS: Gabapentin 100 MG CAPSULE PO SCH ×2 (08:23→13:53)
[2018-12-10] MEDS: Calcium Acetate 667 MG CAPSULE PO SCH ×2 (08:23→12:00)
[2018-12-10] MEDS: Metoprolol XL (24 HR) Succ 25 MG TAB.ER.24H PO SCH (08:23)
--- NOTE | 2018-12-10 09:41 | Nephrology Progress Note ---
Date of Encounter: 12/10/18 Time of Encounter: 09:41 - Assessment and Plan (1) ESRD (end stage renal disease) on dialysis Current Visit: Yes Status: Chronic (2) NSTEMI (non-ST elevated myocardial infarction) Current Visit: Yes Status: Acute (3) Elevated troponin I level Current Visit: Yes Status: Acute (4) Chronic pleural effusion Current Visit: Yes Status: Acute Subjective Principal diagnosis: malfunctioning pleurx Objective - Vital Signs Vital signs: Vital Signs Temp Pulse Resp BP Pulse Ox 12/10/18 07:22 98.9 F 92 18 118/66 12/10/18 04:35 98.7 F 85 17 106/62 99 12/10/18 00:31 98.2 F 81 17 123/69 100 12/09/18 19:56 97.6 F 95 16 143/66 98 12/09/18 17:22 98.4 F 111 16 144/81 99 12/09/18 16:15 98.8 F 110 20 114/65 100 12/09/18 13:58 97.6 F 93 23 118/76 92 12/09/18 13:06 97.7 F 18 121/55 12/09/18 12:45 94/75 12/09/18 12:30 99/55 12/09/18 12:15 131/92 12/09/18 12:00 121/83 12/09/18 11:45 108/47 12/09/18 11:30 114/50 12/09/18 11:15 124/66 12/09/18 11:00 128/67 12/09/18 10:45 125/68 12/09/18 10:30 126/77 12/09/18 10:15 138/70 12/09/18 10:00 125/69 12/09/18 09:45 134/70 Intake and Output 12/09/18 12/10/18 12/10/18 23:59 07:59 15:59 Intake Total 111.6 / 731.6 120 / 120 Output Total 0 / 4125 Balance 111.6 / -3393.4 120 / 120 Intake: IV Fluids 111.6 / 111.6 Heparin 25,000 UNIT/250 ML D5W 111.6 / 111.6 25,000 unit In 250 ml @ 11.1 UNIT/KG/HR 10.07 mls/hr IVC . Q24H [place] Rx#:[id number] Oral 120 / 120 Output: Urine 0 / 0 Other: Meal Breakfast Percent of Meal Consumed 30% Weight 94.5 kg Blood Glucose* 102 86 Patient Weight 12/10/18 23:59 Weight 94.5 kg - Lab 12/10/18 05:51 12/10/18 05:51 Most recent lab results 12/10/18 05:51 Calcium 7.8 L Consult Discharge Plan - Plan Referrals: David Strange DO [Primary Care Provider] -
[2018-12-10 11:30] VITALS: BP 113/56
--- NOTE | 2018-12-10 12:20 | Discharge Summary ---
- NOTES TO OUTPATIENT PROVIDER Notes to Outpatient Provider: Patient with history of heart failure with preserved ejection fraction, coronary artery disease, diabetes, end-stage renal disease on dialysisi, hyperlipidemia hypertension, chronic pleural effusion for which he has a right-sided Pleurx catheter in place presented to the ER with complaints of pain in his right back at the site of pleural catheter. In the ER, he was evaluated for possible cardiac issues and his troponins were checked which were found to be elevated at 0.47. Patient did not have any anterior chest pain. He was started on IV heparin. His troponins trended up to 1.85. Cardiology was consulted. We performed an echocardiogram which showed EF of 50-55%. Patient does have a known history of triple-vessel disease and has previously undergone coronary artery bypass grafting. 2 out of 3 grafts have been occluded based on recent heart catheter done in October. As such cardiology only recommended medical management with continued aspirin and beta claudia and statin and to continue heparin drip for 48-72 hours. Patient is now doing better and is clinically stable for discharge back to skilled rehabilitation. His Pleurx catheter has been drained here and he can continue to drain it as needed at the [facility]. Orders not resulted at time of discharge: Pending orders 12/07/18 21:40 Culture,Blood [BC] Stat 12/10/18 21:20 Heparin anti-factor XA UFH [COAG] Timed Date of Encounter: 12/10/18 Time of Encounter: 12:17 - Discharge Diagnosis (1) NSTEMI (non-ST elevated myocardial infarction) Priority: Primary Status: Acute (2) CHF (congestive heart failure) Priority: Secondary Status: Chronic Qualifiers: Heart failure type: diastolic Heart failure chronicity: acute Qualified Code(s): I50.31 - Acute diastolic (congestive) heart failure (3) Chronic respiratory failure with hypoxia Priority: Secondary Status: Acute (4) ESRD (end stage renal disease) on dialysis Priority: Secondary Status: Chronic (5) HTN (hypertension) Priority: Secondary Status: Chronic Qualifiers: Hypertension type: essential hypertension Qualified Code(s): I10 - Essential (primary) hypertension (6) Liver cirrhosis Priority: Secondary Status: Chronic Qualifiers: Hepatic cirrhosis type: unspecified hepatic cirrhosis Ascites presence: with ascites Qualified Code(s): K74.60 - Unspecified cirrhosis of liver; R18.8 - Other ascites (7) Thrombocytopenia Priority: Secondary Status: Chronic (8) Type 2 diabetes mellitus Priority: Secondary Status: Chronic 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 Esquivel is a 78 year old male Patient with history of heart failure with preserved ejection fraction, coronary artery disease, diabetes, end-stage renal disease on dialysisi, hyperlipidemia hypertension, chronic pleural effusion for which he has a right-sided Pleurx catheter in place presented to the ER with complaints of pain in his right back at the site of pleural catheter. In the ER, he was evaluated for possible cardiac issues and his troponins were checked which were found to be elevated at 0.47. Patient did not have any anterior chest pain. He was started on IV heparin. His troponins trended up to 1.85. Cardiology was consulted. We performed an echocardiogram which showed EF of 50-55%. Patient does have a known history of triple-vessel disease and has previously undergone coronary artery bypass grafting. 2 out of 3 grafts have been occluded based on recent heart catheter done in October. As such cardiology only recommended medical management with continued aspirin and beta claudia and statin and to continue heparin drip for 48-72 hours. Patient is now doing better and is clinically stable for discharge back to skilled rehabilitation. His Pleurx catheter has been drained here and he can continue to drain it as needed at the [facility]. Patient received dialysis during his stay here and will continue dialysis according to his usual schedule. Discharge discussed with: patient, nurse - Time Spent with Patient Total time spent providing and/or coordinating discharge services: Time spent: Greater than 30 minutes (45 min) - Discharge Medications Prescriptions: New OxyCODONE Oral CONC [Oxycodone Oral Conc] 5 - 10 mg SL Q4H PRN 5 Days #20 oral.syg PRN Reason: MOderate to severe pain Continued Venlafaxine XR (24 HR) [Effexor Xr] 150 mg PO DAILY Trazodone HCl 100 mg PO HS PRN PRN Reason: Sleep Calcium Acetate [Phos-LO] 1,334 mg PO TIDWM Nitroglycerin [Nitrostat] 0.4 mg SL Q5M PRN PRN Reason: Chest Pain Aspirin [Lo-Dose Aspirin EC] 81 mg PO DAILY Guaifenesin [Mucinex] 600 mg PO BID PRN PRN Reason: Cough Ondansetron ODT [Zofran ODT] 4 mg SL Q6HR PRN PRN Reason: Nausea Atorvastatin Calcium 80 mg PO DAILY Acetaminophen [Tylenol] 650 mg PO Q6HR PRN PRN Reason: Pain Ipratropium/Albuterol Sulfate [Iprat-Albut 0.5-3(2.5) mg/3 ml] 3 ml IH Q6H PRN PRN Reason: Shortness Of Breath Metoprolol Succinate [Toprol Xl] 25 mg PO DAILY LORazepam [Ativan] 0.5 mg PO BID 5 Days #10 tablet Gabapentin [Neurontin] 100 mg PO TID #30 capsule Discontinued Tramadol HCl [Ultram] 50 mg PO BID PRN PRN Reason: Pain HYDROcodone/Acet 5/325 mg [[place] 5-325 mg] 1 tab PO Q4H PRN PRN Reason: Pain Home Medications: Venlafaxine XR (24 HR) [Effexor Xr] 150 mg PO DAILY 01/15/18 [History] Trazodone HCl 100 mg PO HS PRN 01/31/18 [History] Calcium Acetate [Phos-LO] 1,334 mg PO TIDWM 07/03/18 [History] Nitroglycerin [Nitrostat] 0.4 mg SL Q5M PRN 07/04/18 [History] Aspirin [Lo-Dose Aspirin EC] 81 mg PO DAILY 08/23/18 [History] Guaifenesin [Mucinex] 600 mg PO BID PRN 10/17/18 [History] Ondansetron ODT [Zofran ODT] 4 mg SL Q6HR PRN 11/09/18 [History] Atorvastatin Calcium 80 mg PO DAILY 11/18/18 [History] Acetaminophen [Tylenol] 650 mg PO Q6HR PRN 12/09/18 [History] Ipratropium/Albuterol Sulfate [Iprat-Albut 0.5-3(2.5) mg/3 ml] 3 ml IH Q6H PRN 12/09/18 [History] Metoprolol Succinate [Toprol Xl] 25 mg PO DAILY 12/09/18 [History] Gabapentin [Neurontin] 100 mg PO TID #30 capsule 12/10/18 [Rx] LORazepam [Ativan] 0.5 mg PO BID 5 Days #10 tablet 12/10/18 [Rx] OxyCODONE Oral CONC [Oxycodone Oral Conc] 5 - 10 mg SL Q4H PRN 5 Days #20 oral.syg 12/10/18 [Rx] Allergies/Adverse Reactions: Allergy/AdvReac Type Severity Reaction Status Date / Time No Known Allergies Allergy Verified 11/09/18 07:04 Date of admission: 12/08/18 21:43 Primary care physician: David Strange DO Consults: 12/07/18 23:21 Consult to Cardiology [CONS] Stat Comment: Consulting Provider: Cardiology Faye Reason for Consult: elevated trop Time Notified: 23:21 Call Completed: Yes 12/08/18 01:26 Consult to Head Filter Tank Tender Helper [CONS] Routine Reason for SW Consult: from traditions for therapy 12/08/18 01:57 Consult to Nephrology [CONS] Routine Consulting Provider: Kidney Faye/AGUSTINA/TRAN/SHRADDHA Reason for Consult: ESRD on MWF HD Call Completed: No 12/09/18 08:30 Consult to Dialysis [CONS] ONCE 12/09/18 08:34 Consult to Nurse Navigator [CONS] Routine Comment: CHF Discharging clinician: Sujata Regalado Anticipated date of discharge: 12/10/18 - Constitutional Vitals: Temp Pulse Resp BP Pulse Ox 97.8 F 81 17 113/56 99 12/10/18 11:29 12/10/18 11:29 12/10/18 11:29 12/10/18 11:29 12/10/18 04:35 General appearance: Present: cooperative, A&O X 3, pleasant, no acute distress, answers questions appropriately Exam: General: Patient is alert, no acute distress, oriented x 3 Respiratory: Prolonged expiratory phase, right-sided Pleurx catheter in place Cardiovascular: Regular rate and rhythm. s1 and s2 normal No clicks, rubs, gallops, or murmurs. No pedal edema Abdomen: Abdomen is soft, nontender. Bowel sounds are present Musculoskeletal: Spontaneously moving all extremities Skin: warm, dry, intact. Neuro: Alert oriented x 3 normal cranial nerves, no focal deficits - Patient Status Disposition: Transfer SNF Condition: Fair Functional capacity at discharge: uses cane/walker Overall status at discharge: patient is progressing back to baseline - Discharge Instructions Instructions: Anxiety (DC) Follow Up With: David Strange DO [Primary Care Provider] - (In 1-2 weeks) - Diet and Activity Activity: increase activity as tolerated Diet: diabetic diet, low fat, low cholesterol, low salt diet
--- NOTE | 2018-12-10 12:32 | Physician Discharge Referral ---
ExtendedCare Referral Info Provider in Charge after Transfer: PCP Institutional Level of Care: Skilled - Diagnosis (1) NSTEMI (non-ST elevated myocardial infarction) Priority: Primary Status: Acute (2) CHF (congestive heart failure) Priority: Secondary Status: Chronic (3) Chronic respiratory failure with hypoxia Priority: Secondary Status: Acute (4) ESRD (end stage renal disease) on dialysis Priority: Secondary Status: Chronic (5) HTN (hypertension) Priority: Secondary Status: Chronic (6) Liver cirrhosis Priority: Secondary Status: Chronic (7) Thrombocytopenia Priority: Secondary Status: Chronic (8) Type 2 diabetes mellitus Priority: Secondary Status: Chronic Prognosis: Fair Aware of Diagnosis: Patient Aware of Prognosis: Patient - Transfer Medications Prescriptions: LORazepam [Ativan] 0.5 mg PO BID 5 Days #10 tablet Gabapentin [Neurontin] 100 mg PO TID #30 capsule OxyCODONE Oral CONC [Oxycodone Oral Conc] 5 - 10 mg SL Q4H PRN 5 Days #20 oral.syg PRN Reason: MOderate to severe pain Home Medications: Venlafaxine XR (24 HR) [Effexor Xr] 150 mg PO DAILY 01/15/18 [History] Trazodone HCl 100 mg PO HS PRN 01/31/18 [History] Calcium Acetate [Phos-LO] 1,334 mg PO TIDWM 07/03/18 [History] Nitroglycerin [Nitrostat] 0.4 mg SL Q5M PRN 07/04/18 [History] Aspirin [Lo-Dose Aspirin EC] 81 mg PO DAILY 08/23/18 [History] Guaifenesin [Mucinex] 600 mg PO BID PRN 10/17/18 [History] Ondansetron ODT [Zofran ODT] 4 mg SL Q6HR PRN 11/09/18 [History] Atorvastatin Calcium 80 mg PO DAILY 11/18/18 [History] Acetaminophen [Tylenol] 650 mg PO Q6HR PRN 12/09/18 [History] Ipratropium/Albuterol Sulfate [Iprat-Albut 0.5-3(2.5) mg/3 ml] 3 ml IH Q6H PRN 12/09/18 [History] Metoprolol Succinate [Toprol Xl] 25 mg PO DAILY 12/09/18 [History] Gabapentin [Neurontin] 100 mg PO TID #30 capsule 12/10/18 [Rx] LORazepam [Ativan] 0.5 mg PO BID 5 Days #10 tablet 12/10/18 [Rx] OxyCODONE Oral CONC [Oxycodone Oral Conc] 5 - 10 mg SL Q4H PRN 5 Days #20 oral.syg 12/10/18 [Rx] Allergies/Adverse Reactions: Allergy/AdvReac Type Severity Reaction Status Date / Time No Known Allergies Allergy Verified 11/09/18 07:04 - Respiratory Orders Other (Use CPAP while lying down and as needed) Smoking Cessation: Smoking cessation has been advised. For more information, call the [place] Tobacco Quit Line at 9-393-IUQC-NOW. - Advance Directives Code Status: DNR-Arrest - Mobility Orders Other (per PT) - Rehabiliation Orders Rehab Potential: Fair Rehab Orders: Evaluation for Physical Therapy, Evaluation for Occupational Therapy - Treatments List/Other: Please drain right-sided Pleurx catheter as needed to help relieve pain and treat shortness of breath. - Diet Orders No Concentrated Sweets (Diabetic), Cardiac CERTIFICATION: I certify that the transfer of the above named patient to an Extended Care Facility is necessary for the continuing treatment of the diagnosis listed. The above information is true and accurate reflection of patient's current condition. Confidential - Redisclosure prohibited without a patient's written consent.
--- NOTE | 2018-12-11 18:03 | Electrocardiograph Report ---
[facility] Test Date: 2018-12-07 Pat Name: Ike Esquivel Department: [id number] Room: 2A26 Gender: M [employer]: : [id number] Requested By: Davon Sarah Order Number: [id number] Reading MD: Justice Ventura Measurements Intervals [place] Rate: 120 P: 226 DC: 113 QRS: 1 QRSD: 105 T: 178 QT: 345 QTc: 488 Interpretive Statements Sinus or ectopic atrial tachycardia Repol abnrm suggests ischemia, diffuse leads Minimal ST elevation, inferior leads Baseline wander in lead(s) V2 Electronically Signed On 12-11-2018 18:01:54 EDT by Justice Ventura
== END 2018-12-10 15:02 | DRG 280 ==
LOC: CDU 18:44 → EMEROOARM 18:44 → SUATTDRO 12-08 00:06 → CDU 12-08 00:49 → 2ANU 12-09 17:08
PROVIDERS: ADMIT Pediatrics; ATTEND Internal Medicine

== ENCOUNTER 2019-01-02 10:20 | Observation (INO) ==
[2019-01-02] MEDS ORDERED: 0.9 % Sodium Chloride 1,000 ML IVC ONE (10:31)
--- NOTE | 2019-01-02 10:31 | Emergency Department Note ---
Disposition Clinical Impression: Chronic renal failure, Hypotension, S/P CABG x 3, Hypoglycemia, ESRD (end stage renal disease), Frail elderly, Elevated troponin, Abnormal EKG, Anemia, Diabetes Disposition: Admitted As Inpatient Referrals: NONE,PCP [Primary Care Provider] - Time of Disposition: 13:12 General Adult HPI - General Stated complaint: diabetic emergency Time Seen by Provider: 01/02/19 10:30 - History of Present Illness HPI Narrative: 78-year-old male reports emergency department via EMS, there is concern for low oxygen levels and low blood glucose. The patient was reportedly just discharged [facility] on Wednesday, he is a dialysis patient and had his last dialysis on Wednesday. The patient's blood glucose at home was 40. The patient was given D10 and round. Oxygen supplied. EMS reports that the patient's oxygen home concentrator was turned off. The patient denies chest pain or acute shortness of breath. He reports his lungs feel slightly rapidly. There is no history of fall injury or seizure. No unilateral arm or leg weakness or numbness facial droop of slurred speech. There is no history of abdominal pain vomiting diarrhea fever rash or back pain. The patient reports he feels improved. - Related Data Home Medications Medication Instructions Recorded Confirmed Venlafaxine XR (24 HR) [Effexor Xr] 150 mg PO DAILY 01/15/18 12/09/18 Trazodone HCl 100 mg PO HS PRN 01/31/18 12/09/18 Calcium Acetate [Phos-LO] 1,334 mg PO TIDWM 07/03/18 12/09/18 Nitroglycerin [Nitrostat] 0.4 mg SL Q5M PRN 07/04/18 12/09/18 Aspirin [Lo-Dose Aspirin EC] 81 mg PO DAILY 08/23/18 12/09/18 Guaifenesin [Mucinex] 600 mg PO BID PRN 10/17/18 12/09/18 Ondansetron ODT [Zofran ODT] 4 mg SL Q6HR PRN 11/09/18 12/09/18 Atorvastatin Calcium 80 mg PO DAILY 11/18/18 12/09/18 Acetaminophen [Tylenol] 650 mg PO Q6HR PRN 12/09/18 12/09/18 Ipratropium/Albuterol Sulfate 3 ml IH Q6H PRN 12/09/18 12/09/18 [Iprat-Albut 0.5-3(2.5) mg/3 ml] Metoprolol Succinate [Toprol Xl] 25 mg PO DAILY 12/09/18 12/09/18 Previous Rx's Medication Instructions Recorded Gabapentin [Neurontin] 100 mg PO TID #30 capsule 12/10/18 LORazepam [Ativan] 0.5 mg PO BID 5 Days #10 tablet 12/10/18 OxyCODONE Oral CONC [Oxycodone 5 - 10 mg SL Q4H PRN 5 Days #20 12/10/18 Oral Conc] oral.syg Allergies Allergy/AdvReac Type Severity Reaction Status Date / Time No Known Allergies Allergy Verified 11/09/18 07:04 All systems ED: reviewed and negative except as stated. Past Medical History - Past Medical History Medical history: Reports: aortic aneurysm, arthritis, CHF, coronary artery disease, diabetes, dialysis, hyperlipidemia, hypertension, renal disease Surgical history: Reports: angioplasty/stent, coronary bypass (CABG), orthopedic, other, other Psychiatric history: Reports: anxiety, depression - Social History Smoking Status: Former smoker Smokeless Tobacco Status: No Alcohol use: Reports: none Drug use: Reports: none Physical Exam - General Limitations: no limitations General appearance: alert, in no apparent distress - Head Head exam: atraumatic, normocephalic, normal inspection - Eye Eye exam: Present: normal appearance, PERRL, EOMI - ENT ENT exam: normal exam, normal oropharynx, mucous membranes moist, normal external ear exam - Neck Neck exam: Present: normal inspection, full ROM, trachea midline - Chest Chest inspection: Present: symmetric chest wall rise. Absent: tenderness - Respiratory Respiratory exam: Present: prolonged expiratory phase. Absent: respiratory distress, wheezes - Cardiovascular Cardiovascular exam: Present: regular rate, normal rhythm, normal heart sounds - Abdominal Exam Abdominal exam: Present: soft, Non-Tender, normal bowel sounds. Absent: tenderness, distention, guarding, rebound, rigidity - Extremities Exam Extremities exam: Present: normal inspection, full ROM, normal capillary refill. Absent: tenderness, pedal edema, joint swelling, calf tenderness - Expanded Lower Extremity Exam Neurovascular/Tendon exam: Present: normal capillary refill. Absent: motor deficit, sensory deficit, tendon deficit, extremity cold to touch, pallor - Back Exam Back exam: Present: normal inspection, full ROM. Absent: tenderness, CVA tenderness (R), CVA tenderness (L), vertebral tenderness - Neurological Exam Neurological exam: Present: alert, oriented X3, CN II-XII intact. Absent: motor sensory deficit - Psychiatric Psychiatric exam: Present: normal affect, normal mood - Skin Skin exam: Present: warm, dry, intact, normal color Course Vital Signs Temperature 95 F L 01/02/19 10:22 Pulse Rate 60 01/02/19 10:22 Respiratory Rate 16 01/02/19 10:22 Blood Pressure 88/61 01/02/19 10:22 O2 Sat by Pulse Oximetry 100 01/02/19 10:22 Temperature 95 F L 01/02/19 10:22 Pulse Rate 59 01/02/19 11:30 Respiratory Rate 16 01/02/19 11:30 Blood Pressure 95/61 01/02/19 11:30 O2 Sat by Pulse Oximetry 100 01/02/19 11:30 Oxygen Delivery Oxygen Delivery Nasal Cannula Medical Decision Making - MDM Narrative Medical decision making narrative: The patient is anuric, his chest x-ray shows congestive changes. He has a known history of CAD, EKG reviewed, T-wave inversions in the anterior leads through V4, similar to prior. The patient's do not describe chest pain. Troponin minimally elevated. Aspirin ordered. The patient was given IV fluids emergency department and his hypotension improved. Based on his anuria and renal failure judicious hydration was utilized, we gave him fluid until is MAP was a pproximately 70. He did not seem to develop pulmonary symptomatology status post bolus. Per family report the patient was just discharged from [facility] on Wednesday. His last dialysis was Wednesday. They are highly concerned about the patient's hypoglycemia and low blood pressure do not feel comfortable managing him at home. The patient does not describe chest pain his EKG is abnormal but no acute ST elevations are noted. He has a known history of coronary artery disease. Based on the patient's age, multiple medical comorbidities, hypoglycemia, elevated troponin, pulmonary congestion, dialysis therapy requirement, elevated troponin, history of CAD, and persistent hypotension, I thought it would be appropriate to admit the patient to the hospital. Blood cultures were sent. Nursing is rechecking temperature. I discussed the case with the hospitalist on-call who has accepted the patient to their care. The patient and family are highly agreeable. - Lab Data Lab results reviewed: Yes I reviewed the patient's lab results. Result diagrams: 01/02/19 10:31 01/02/19 10:31 Lab Results 01/02/19 01/02/19 01/02/19 Range/Units 10:28 10:31 10:31 WBC 5.7 (4.3-11.1) K/mcL RBC 3.34 L (4.19-5.50) M/mcL Hgb 10.0 L (12.9-16.9) g/dL Hct 33.7 L (37.5-50.1) % MCV 100.9 H (83.0-100.0) fL MCH 29.9 (28.0-33.3) pg MCHC 29.7 L (31.6-35.5) g/dL RDW 15.6 H (11.5-14.5) % Plt Count 87 L (140-400) K/mcL MPV 10.6 (9.4-12.4) fL Immature Gran % 0.3 (0-4) % Seg Neutrophils % 49.8 % Lymphocytes % 21.7 % Monocytes % 9.3 % Eosinophils % 18.4 % Basophils % 0.5 % Neutrophils # 2.8 (1.6-8.9) K/mcL Lymphocytes # 1.2 (0.6-4.6) K/mcL Monocytes # 0.5 (0.0-1.3) K/mcL Eosinophils # 1.1 H (0.0-0.6) K/mcL Basophils # 0.0 (0.0-0.2) K/mcL Immature Plt Fraction 7.3 H (1.1-6.1) % PT 15.2 H (9.4-12.1) Seconds INR 1.3 APTT 30.5 (26.0-36.0) Seconds Sodium (136-145) mEq/L Potassium (3.5-5.1) mEq/L Chloride (98-107) mEq/L Carbon Dioxide (23-29) mEq/L BUN (8-23) mg/dL Creatinine (0.70-1.30) mg/dL Est GFR ( Amer) (> 60) Est GFR (Non-Af Amer) (> 60) BUN/Creatinine Ratio (6-26) Glucose (70-105) mg/dL POC Glucose 87 (70-99) mg/dL Calculated Osmolality (280-300) Lactic Acid (0.5-2.2) mmol/L Calcium (8.6-10.3) mg/dL Total Bilirubin (0.3-1.0) mg/dL Direct Bilirubin (0.0-0.2) mg/dL Indirect Bilirubin (0.0-1.2) mg/dL AST (13-39) Units/L ALT (7-52) Units/L Alkaline Phosphatase (34-104) Units/L Troponin I (< 0.04) ng/mL B-Natriuretic Peptide (Less than 100) pg/mL Serum Total Protein (6.4-8.9) g/dL Albumin (3.5-5.7) g/dL Globulin (2.4-3.5) g/dL Albumin/Globulin Ratio (1.1-2.2) 01/02/19 01/02/19 01/02/19 Range/Units 10:31 10:31 10:54 WBC (4.3-11.1) K/mcL RBC (4.19-5.50) M/mcL Hgb (12.9-16.9) g/dL Hct (37.5-50.1) % MCV (83.0-100.0) fL MCH (28.0-33.3) pg MCHC (31.6-35.5) g/dL RDW (11.5-14.5) % Plt Count (140-400) K/mcL MPV (9.4-12.4) fL Immature Gran % (0-4) % Seg Neutrophils % % Lymphocytes % % Monocytes % % Eosinophils % % Basophils % % Neutrophils # (1.6-8.9) K/mcL Lymphocytes # (0.6-4.6) K/mcL Monocytes # (0.0-1.3) K/mcL Eosinophils # (0.0-0.6) K/mcL Basophils # (0.0-0.2) K/mcL Immature Plt Fraction (1.1-6.1) % PT (9.4-12.1) Seconds INR APTT (26.0-36.0) Seconds Sodium 130 L (136-145) mEq/L Potassium 4.9 (3.5-5.1) mEq/L Chloride 97 L (98-107) mEq/L Carbon Dioxide 27 (23-29) mEq/L BUN 26 H (8-23) mg/dL Creatinine 6.38 H (0.70-1.30) mg/dL Est GFR ( Amer) 10 L (> 60) Est GFR (Non-Af Amer) 9 L (> 60) BUN/Creatinine Ratio 4 L (6-26) Glucose 80 (70-105) mg/dL POC Glucose (70-99) mg/dL Calculated Osmolality 274 L (280-300) Lactic Acid 1.2 (0.5-2.2) mmol/L Calcium 7.8 L (8.6-10.3) mg/dL Total Bilirubin 0.5 (0.3-1.0) mg/dL Direct Bilirubin 0.1 (0.0-0.2) mg/dL Indirect Bilirubin 0.4 (0.0-1.2) mg/dL AST 32 (13-39) Units/L ALT 14 (7-52) Units/L Alkaline Phosphatase 121 H (34-104) Units/L Troponin I 0.04 H* (< 0.04) ng/mL B-Natriuretic Peptide 1382 H (Less than 100) pg/mL Serum Total Protein 7.5 (6.4-8.9) g/dL Albumin 2.7 L (3.5-5.7) g/dL Globulin 4.8 H (2.4-3.5) g/dL Albumin/Globulin Ratio 0.6 L (1.1-2.2) - Radiology Data Radiology results reviewed: Yes I reviewed the patient's radiology results.
[2019-01-02 11:07] LABS: Eosinophils % 18.4 %
[2019-01-02 11:09] LABS: Basophils % 0.5 %; Eosinophils # 1.1 K/mcL (0.0-0.6); Hematocrit 33.7 % (37.5-50.1); Immature Granulocytes % 0.3 % (0-4); Immature Platelets 7.3 % (1.1-6.1); Lymphocytes # 1.2 K/mcL (0.6-4.6); Lymphocytes % 21.7 %; Mean Corpuscular HGB Conc 29.7 g/dL (31.6-35.5); Mean Corpuscular Hemoglobin 29.9 pg (28.0-33.3); Mean Corpuscular Volume 100.9 fL (83.0-100.0); Mean Platelet Volume 10.6 fL (9.4-12.4); Monocytes # 0.5 K/mcL (0.0-1.3); Monocytes % 9.3 %; Red Blood Count 3.34 M/mcL (4.19-5.50); Red Cell Distribution Width 15.6 % (11.5-14.5); Segmented Neutrophils % 49.8 %; White Blood Count 5.7 K/mcL (4.3-11.1)
[2019-01-02 11:13] LABS: Neutrophils # 2.8 K/mcL (1.6-8.9); Platelet Count 87 K/mcL (140-400)
[2019-01-02 11:14] LABS: INR 1.3; Prothrombin Time 15.2 Seconds (9.4-12.1)
[2019-01-02 11:17] LABS: Activated Partial Thrombo Time 30.5 Seconds (26.0-36.0)
[2019-01-02 11:31] LABS: Albumin 2.7 g/dL (3.5-5.7); Albumin/Globulin Ratio 0.6 (1.1-2.2); Bilirubin,Direct 0.1 mg/dL (0.0-0.2); Bilirubin,Indirect 0.4 mg/dL (0.0-1.2); Bilirubin,Total 0.5 mg/dL (0.3-1.0); Calcium 7.8 mg/dL (8.6-10.3); Globulin 4.8 g/dL (2.4-3.5); Potassium 4.9 mEq/L (3.5-5.1); Total Protein 7.5 g/dL (6.4-8.9); Troponin I 0.04 ng/mL (< 0.04)
[2019-01-02] MEDS ORDERED: Aspirin 325 MG TABLET PO ONE (11:43)
[2019-01-02] MEDS ORDERED: Naloxone 0.4 MG/ML INJ IVP PRN (14:31)
--- NOTE | 2019-01-02 14:42 | Internal Med History&Physical ---
Date of Encounter: 01/02/19 Time of Encounter: 14:38 Internal Medicine - H&P: HPI Chief complaint: Altered mental status. Admitted From: Home Plans for Post Hospital Care: Transfer Long Term Facility History of present illness: Mr. Esquivel is a 78 year old male with past medical history of coronary artery bypass graft 3, end-stage renal disease on dialysis, hypertension, hyperlipidemia, chronic pleural effusion, presents to the emergency department with complaint of mental status. Patient was at his home and he appeared confused and altered to patient's . Patient was brought to the emergency room via EMS. Upon arrival patient's Accu-Chek was done which found his blood was to be 42. Dextrose was given in the emergency room which increases his blood glucose to 84. Patient on arrival found to be hypoxemic. Patient was placed on oxygen via nasal cannula and his oxygen saturation improved afterwa rds. Patient denies any chest pain. Patient denied any difficulty breathing, palpitation, sweating, diaphoresis. Patient denies any acute nausea, vomiting, fever, chills, and abdominal pain. Of note, patient was recently discharged on December 10 from the hospital. Patient was at retirement facility for 3 weeks and recently got discharged by Wednesday on December 31 from retirement facility. On previous admission in November, patient was found to have an ST elevation [place]. Patient's troponin was 0.47 on presentation at previous admission and which gradually trended up to 0.76. Patient was placed on heparin drip. Cardiology was consulted. Echocardiogram was done. At previous admission echocardiogram showed ejection fraction of 50- 55%. Review of records, patient has a baseline troponin of 0.05 - 0.09 in the setting of end-stage renal disease. Patient's BNP is elevated in the setting of end-stage renal disease as well. Nephrology is on consult for dialysis. Patient heparin drip was discontinued at previous admission after troponin trended down. Cardiology did not recommend any further recommendation at previous admission. Past Med Surg Social Fam HX - Past Medical History Medical history: aortic aneurysm, arthritis, CHF, coronary artery disease, diabetes, dialysis, hyperlipidemia, hypertension, renal disease, other Additional medical history: BLADDER NECK CONTRACTURE, SQUAMOUS CELL CANCER. 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), triple bypass - Social History Smoking Status: Former smoker Smokeless Tobacco Status: No Alcohol use: none Drug use: none - Family History Father Adopted: No Family Member Ethnicity: Non- Living Status: Hx Family Cardiac Disorders: Yes (VT) Mother Adopted: No Family Member Ethnicity: Non- Living Status: Hx Family Cancer: Yes Brother Family Member Ethnicity: Non- Living Status: Still Living Sister Adopted: No Family Member Ethnicity: Non- Living Status: Still Living Hx Family Cardiac Disorders: Yes Hx Family Respiratory Disorders: No Hx Family Cancer: Yes Hx Family GI Disorders: No Hx Family Endocrine Disorder: Yes Hx Family Neuromuscular Disorders: No Hx Family Neurologic Disorders: No Hx Family HEENT Disorders: No Hx Family Autoimmune Disorders: No Internal Medicine - H&P: Meds Venlafaxine XR (24 HR) [Effexor Xr] 150 mg PO DAILY 01/15/18 [History] Trazodone HCl 100 mg PO HS PRN 01/31/18 [History] Calcium Acetate [Phos-LO] 1,334 mg PO TIDWM 07/03/18 [History] Nitroglycerin [Nitrostat] 0.4 mg SL Q5M PRN 07/04/18 [History] Aspirin [Lo-Dose Aspirin EC] 81 mg PO DAILY 08/23/18 [History] Guaifenesin [Mucinex] 600 mg PO BID PRN 10/17/18 [History] Ondansetron ODT [Zofran ODT] 4 mg SL Q6HR PRN 11/09/18 [History] Atorvastatin Calcium 80 mg PO DAILY 11/18/18 [History] Acetaminophen [Tylenol] 650 mg PO Q6HR PRN 12/09/18 [History] Ipratropium/Albuterol Sulfate [Iprat-Albut 0.5-3(2.5) mg/3 ml] 3 ml IH Q6H PRN 12/09/18 [History] Metoprolol Succinate [Toprol Xl] 25 mg PO DAILY 12/09/18 [History] Gabapentin [Neurontin] 100 mg PO TID #30 capsule 12/10/18 [Rx] LORazepam [Ativan] 0.5 mg PO BID 5 Days #10 tablet 12/10/18 [Rx] OxyCODONE Oral CONC [Oxycodone Oral Conc] 5 - 10 mg SL Q4H PRN 5 Days #20 oral.syg 12/10/18 [Rx] Allergy/AdvReac Type Severity Reaction Status Date / Time No Known Allergies Allergy Verified 11/09/18 07:04 All Systems PM: A 10-system review of systems was performed and is negative for pertinent findings except as documented above in the HPI. - Constitutional Vitals: Temp Pulse Resp BP Pulse Ox 96.7 F L 56 16 97/57 100 01/02/19 14:00 01/02/19 14:00 01/02/19 14:00 01/02/19 14:00 01/02/19 14:00 General appearance: Present: cooperative, A&O X 3 Exam: General: A & O 3, In no acute distress HENNT: PERRLA. Head atraumatic and makes supple CVS S1 and S2 regular, no murmur RS: Clear to air entry bilaterally, b/l basal rales Abdomen: Soft and nontender. Bowel sounds normal 4 Extremities: No cyanosis, clubbing, and edema Neurology: Cranial II-XII normal. Motor strength 5/5 bilaterally. Sensation intact Internal Med - H&P Results - Labs CBC & Chem 7: 01/02/19 10:31 01/02/19 10:31 Labs: Short CBC 01/02/19 Range/Units 10:31 WBC 5.7 (4.3-11.1) K/mcL Hgb 10.0 L (12.9-16.9) g/dL Hct 33.7 L (37.5-50.1) % Plt Count 87 L (140-400) K/mcL Neutrophils # 2.8 (1.6-8.9) K/mcL BMP 01/02/19 10:31 Sodium 130 L Potassium 4.9 Chloride 97 L Carbon Dioxide 27 BUN 26 H Creatinine 6.38 H Glucose 80 Calcium 7.8 L Cardiac Enzymes 01/02/19 Range/Units 10:31 Troponin I 0.04 H* (< 0.04) ng/mL Liver Function 01/02/19 Range/Units 10:31 Total Bilirubin 0.5 (0.3-1.0) mg/dL Direct Bilirubin 0.1 (0.0-0.2) mg/dL AST 32 (13-39) Units/L ALT 14 (7-52) Units/L Alkaline Phosphatase 121 H (34-104) Units/L Albumin 2.7 L (3.5-5.7) g/dL - Impressions ITS Impressions Chest X-Ray 01/02/19 10:32 IMPRESSION: Pleural effusions and atelectasis. Possible mild pulmonary edema. D/ / 01/02/2019 11:02:10 Jonas Herring MD / [facility] Interpreting Provider: Jonas Herring MD - Assessment and Plan (1) Altered mental status Current Visit: Yes Status: Acute Assessment and plan: Patient presented to emergency department with complaint of altered mental status and confusion. Patient was recently discharged from [facility] facility on 12/31/2018. Upon presentation to the emergency department patient's glucose was 42. Most likely patient confusion was as a result of hypoglycemia. Patient was given dextrose in the emergency room and his blood glucose improved to 84. Upon my exam and my initial evaluation at the emergency department patient was alert and oriented 3. Patient denies any acute issues and concern at that time. We will resume patient's diabetes insulin regimen once blood glucose is stable. Qualifiers: Altered mental status type: unspecified Qualified Code(s): R41.82 - Altered mental status, unspecified (2) Hypoglycemia Current Visit: Yes Status: Acute Assessment and plan: Management as able. (3) Elevated troponin Current Visit: Yes Status: Acute Assessment and plan: Upon presentation to emergency room on initial workup patient's troponin was elevated at 0.04. Patient has a history of coronary artery bypass graft 3. Patient had a admission last month. His troponin on initial presentation was found to be 0.471 and patient was placed heparin drip. Patient's troponin level was increased to 0.14. Patient continues to remain symptomatically. Cardiology was consulted. Echocardiogram was ordered. We will continue to trend troponin. If troponins trend up significantly then consider placing heparin drip for possible non-ST elevation [place]. (4) Hypotension Current Visit: Yes Status: Acute Assessment and plan: Upon initial presentation to the emergency room patient's blood pressure was low. Patient was given bolus and his blood pressure went up to 110/70. We will continue gentle hydration. We will continue to monitor. Qualifiers: Hypotension type: hypotension due to drug Qualified Code(s): I95.2 - Hypotension due to drugs (5) S/P CABG x 3 Current Visit: Yes Status: Chronic Assessment and plan: We will continue aspirin and statin and beta claudia. We will continue to trend troponin. Cardiology on consult. Appreciate cardiology input. (6) CHF (congestive heart failure) Current Visit: No Status: Chronic Assessment and plan: Patient has heart failure resulting ejection fraction. On chest x-ray patient has a bilateral pleural effusion which is multifactorial likely due to end-stage renal disease as well. Gentle hydration. Hold diuretics in the setting of hy potension. Qualifiers: Heart failure type: diastolic Heart failure chronicity: chronic Qualified Code(s): I50.32 - Chronic diastolic (congestive) heart failure (7) Chronic respiratory failure with hypoxia Current Visit: No Status: Chronic Assessment and plan: Patient is a chronic respiratory failure with hypoxia and requires home oxygen at 2 L. Likely due to end-stage renal disease and chronic pleural effusion. Co ntinue O2 support. Continue to monitor. Will resume home inhalers. (8) ESRD (end stage renal disease) on dialysis Current Visit: No Status: Chronic Assessment and plan: Patient has a history of end-stage renal disease and he is on dialysis on Wednesday and Wednesday. Patient missed his dialysis today. Nephrology on consult. Nephrology took patient to the dialysis Center from the emergency [facility]. We will continue to monitor. Appreciate nephrology input. (9) CAD (coronary artery disease) Current Visit: No Status: Chronic Assessment and plan: We will continue home aspirin, beta claudia, and statin. Qualifiers: Coronary Disease-Associated Artery/Lesion type: bypass graft [place] vs. transplanted heart: [place] heart Associated angina: with unstable angina Qualified Code(s): I25.700 - Atherosclerosis of coronary artery bypass graft(s), unspecified, with unstable angina pectoris (10) Diabetes Current Visit: No Status: Chronic Assessment and plan: We will continue home regimen once blood glucose is stable. Continue current glucose is 84. Will consider insulin if blood glucose values increase. Qualifiers: Diabetes mellitus type: type 2 Diabetes mellitus senior care insulin use: without senior care use Diabetes mellitus complication status: with kidney complications Diabetes mellitus complication detail: with nephropathy Qualified Code(s): E11.21 - Type 2 diabetes mellitus with diabetic nephropathy (11) HLD (hyperlipidemia) Current Visit: No Status: Chronic Assessment and plan: We will continue statin. Qualifiers: Hyperlipidemia type: unspecified Qualified Code(s): E78.5 - Hyperlipidemia, unspecified (12) HTN (hypertension) Current Visit: No Status: Chronic Assessment and plan: Will hold hypertensive medication at this time due to hypotension. We will continue to monitor. Qualifiers: Hypertension type: essential hypertension Qualified Code(s): I10 - Essential (primary) hypertension (13) Pleural effusion Current Visit: No Status: Chronic Assessment and plan: Chronic in nature due to end-stage renal disease. Continue O2 support. (14) DVT prophylaxis Current Visit: No Status: Acute Assessment and plan: Heparin subcutaneously. - Time Spent With Patient Total time spent is greater than 50% in coordination of care (as documented) at patient's floor/unit and/or counseling patient: 25 - 35 minutes
[2019-01-02] MEDS ORDERED: 0.9 % Sodium Chloride 1,000 ML IVC SCH (14:45)
[2019-01-02] MEDS ORDERED: 0.9 % Sodium Chloride 250 ML IVC PRN (15:02)
[2019-01-02] MEDS ORDERED: 0.9 % Sodium Chloride 1,000 ML PRIME SCH (15:15)
--- NOTE | 2019-01-02 15:59 | Nephrology Consult Note ---
Date of Encounter: 01/02/19 Time of Encounter: 15:56 Assessment and Plan (1) ESRD (end stage renal disease) Current Visit: Yes Status: Chronic HD MWF. Renal vitamins. Renal dose medications. Renal diet. Additional dialysis and ultrafiltration as needed. Patient was seen on dialysis (2) Hypoglycemia Current Visit: Yes Status: Acute Likely the cause of his altered mental status. His altered mental status seems to have resolved. He seems to be at his baseline. (3) Anemia Current Visit: Yes Status: Chronic Monitor for signs of bleeding Qualifiers: (4) Frail elderly Current Visit: Yes Status: Chronic History of Present Illness - Reason for Consult Consult date: 01/02/19 end stage renal disease - Chief Complaint ESRD - History of Present Illness Mr. Esquivel is a 78 yo man with a history of ESRD who presents after his found it difficult to wake him this morning. The patient presented to the emergency room and was found to have a blood sugar of 26. He was appropriately resuscitated and will be admitted for altered mental/status/hypoglycemia. The patient was seen while he was on dialysis. He has no new complaints. He denies chest pain, shortness of breath, nausea, vomiting, or diarrhea. He receives dialysis on a Wednesday schedule via a left upper arm fistula. Past Med Surg Social Fam HX - Past Medical History Medical history: aortic aneurysm, arthritis, CHF, coronary artery disease, diabetes, dialysis, hyperlipidemia, hypertension, renal disease, other Additional medical history: BLADDER NECK CONTRACTURE, SQUAMOUS CELL CANCER. di alysis M,W, F Psychiatric history: anxiety, depression - Past Surgical History Surgical History: angioplasty/stent, coronary bypass (CABG), orthopedic, other, other Additional surgical history: Back surgery (1998), Right hand middle finger amputation (date unknown), triple bypass - Social History Smoking Status: Former smoker Smokeless Tobacco Status: No Alcohol use: none Drug use: none - Family History Father Adopted: No Family Member Ethnicity: Non- Living Status: Hx Family Cardiac Disorders: Yes ([place]) Mother Adopted: No Family Member Ethnicity: Non- Living Status: Hx Family Cancer: Yes Brother Family Member Ethnicity: Non- Living Status: Still Living Sister Adopted: No Family Member Ethnicity: Non- Living Status: Still Living Hx Family Cardiac Disorders: Yes Hx Family Respiratory Disorders: No Hx Family Cancer: Yes Hx Family GI Disorders: No Hx Family Endocrine Disorder: Yes Hx Family Neuromuscular Disorders: No Hx Family Neurologic Disorders: No Hx Family HEENT Disorders: No Hx Family Autoimmune Disorders: No Medications and Allergies Venlafaxine XR (24 HR) [Effexor Xr] 150 mg PO DAILY 01/15/18 [History] Trazodone HCl 100 mg PO HS PRN 01/31/18 [History] Calcium Acetate [Phos-LO] 1,334 mg PO TIDWM 07/03/18 [History] Nitroglycerin [Nitrostat] 0.4 mg SL Q5M PRN 07/04/18 [History] Aspirin [Lo-Dose Aspirin EC] 81 mg PO DAILY 08/23/18 [History] Guaifenesin [Mucinex] 600 mg PO BID PRN 10/17/18 [History] Ondansetron ODT [Zofran ODT] 4 mg SL Q6HR PRN 11/09/18 [History] Atorvastatin Calcium 80 mg PO DAILY 11/18/18 [History] Acetaminophen [Tylenol] 650 mg PO Q6HR PRN 12/09/18 [History] Ipratropium/Albuterol Sulfate [Iprat-Albut 0.5-3(2.5) mg/3 ml] 3 ml IH Q6H PRN 12/09/18 [History] Metoprolol Succinate [Toprol Xl] 25 mg PO DAILY 12/09/18 [History] Gabapentin [Neurontin] 100 mg PO TID #30 capsule 12/10/18 [Rx] LORazepam [Ativan] 0.5 mg PO BID 5 Days #10 tablet 12/10/18 [Rx] OxyCODONE Oral CONC [Oxycodone Oral Conc] 5 - 10 mg SL Q4H PRN 5 Days #20 oral.syg 12/10/18 [Rx] Allergy/AdvReac Type Severity Reaction Status Date / Time No Known Allergies Allergy Verified 11/09/18 07:04 Review of Systems All Systems: reviewed and no additional remarkable complaints except as stated (as documented in the hpi) Exam - Vital Signs Vital signs: Initial Vital Signs Temp Pulse Resp BP Pulse Ox 95 F L 60 16 88/61 100 01/02/19 10:22 01/02/19 10:22 01/02/19 10:22 01/02/19 10:22 01/02/19 10:22 Vital Signs - Last 8 Hours Temp Pulse Resp BP Pulse Ox 01/02/19 14:00 96.7 F L 56 16 97/57 100 01/02/19 13:30 58 16 99/61 100 01/02/19 13:00 58 16 104/68 100 01/02/19 12:30 60 16 96/72 100 01/02/19 11:30 59 16 95/61 100 01/02/19 11:00 59 16 80/54 100 01/02/19 10:33 98 01/02/19 10:22 95 F L 60 16 88/61 100 Intake and Output 01/01/19 01/02/19 01/02/19 23:59 07:59 15:59 Intake Total 1000 / 1000 Balance 1000 / 1000 Intake: IV Fluids 1000 / 1000 0.9 % Sodium Chloride 1,000 ML 1000 / 1000 @ 999 mls/hr IVC .Q1H1M ONE Rx# :[id number] Other: Weight 96.615 kg Blood Glucose* 84 Patient Weight 01/02/19 23:59 Weight 96.615 kg - General Appearance General appearance: well-developed, well-nourished, chronically ill, frail EENT: ATNC Neck: supple Respiratory: course breath sounds Cardiology: no edema, regular rate - Dialysis Access Dialysis Vascular Access: Arteriovenous Fistula Gastrointestinal: no tenderness Integumentary: warm and dry Neurologic: alert and oriented x3 Musculoskeletal: no cyanosis Psychiatric: mood/affect appropriate Results - Lab Results 01/02/19 10:31 01/02/19 10:31 Most recent lab results 01/02/19 10:31 Calcium 7.8 L Consult Discharge Plan - Plan Referrals: NONE,PCP [Primary Care Provider] -
[2019-01-02] MEDS ORDERED: Acetaminophen 325 MG TABLET PO PRN (17:09)
[2019-01-02] MEDS ORDERED: Ipratropium/Albuterol Neb 3 ML IH PRN (17:10)
[2019-01-02] MEDS ORDERED: Nitroglycerin 0.4 MG TAB.SUBL SL PRN (17:15)
[2019-01-02] MEDS ORDERED: *HR* Dextrose 50 % in Water (Syg) 50 ML SYRINGE IVP PRN (20:05)
[2019-01-02] MEDS ORDERED: Dextrose Gel 15 GM/37.5 ML TUBE PO PRN ×3 (20:10→20:16)
[2019-01-02] MEDS ORDERED: Dextrose Gel 15 GM/37.5 ML TUBE PO ONE (20:10)
[2019-01-02] MEDS: *HR* Dextrose 50 % in Water (Syg) 50 ML SYRINGE IVP PRN (20:28)
[2019-01-02] MEDS ORDERED: traZODone 50 MG TABLET PO SCH (21:00)
[2019-01-02] MEDS: *HR* Heparin 5,000 UNIT/ML VIAL SQ SCH (21:27)
[2019-01-02] MEDS ORDERED: Perflutren Lipid Microsphere 1.3 ML in 0.9 % Sodium Chloride 8.7 ML IVP ONE (21:32)
[2019-01-03 01:23] LABS: Immature Granulocytes % 0.2 % (0-4); Mean Corpuscular Volume 100.3 fL (83.0-100.0)
[2019-01-03 01:24] LABS: Basophils % 0.4 %; Eosinophils # 0.8 K/mcL (0.0-0.6); Eosinophils % 15.6 %; Hematocrit 33.7 % (37.5-50.1); Hemoglobin 9.9 g/dL (12.9-16.9); Lymphocytes # 1.1 K/mcL (0.6-4.6); Lymphocytes % 22.5 %; Mean Corpuscular HGB Conc 29.4 g/dL (31.6-35.5); Mean Corpuscular Hemoglobin 29.5 pg (28.0-33.3); Mean Platelet Volume 11.1 fL (9.4-12.4); Monocytes # 0.5 K/mcL (0.0-1.3); Monocytes % 10.2 %; Neutrophils # 2.5 K/mcL (1.6-8.9); Red Blood Count 3.36 M/mcL (4.19-5.50); Red Cell Distribution Width 15.7 % (11.5-14.5); Segmented Neutrophils % 51.1 %; White Blood Count 4.8 K/mcL (4.3-11.1)
[2019-01-03 01:29] LABS: Platelet Count 65 K/mcL (140-400)
[2019-01-03 01:42] LABS: Calcium 7.4 mg/dL (8.6-10.3); Magnesium 1.7 mg/dL (1.6-2.6)
[2019-01-03] MEDS: *HR* Dextrose 50 % in Water (Syg) 50 ML SYRINGE IVP PRN ×4 (01:58→06:59)
[2019-01-03] MEDS: D5% in Water 1,000 ML IVC PRN ×2 (03:09→13:19)
[2019-01-03] MEDS: *HR* Heparin 5,000 UNIT/ML VIAL SQ SCH ×2 (05:01→13:20)
--- NOTE | 2019-01-03 06:44 | Electrocardiograph Report ---
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
[2019-01-03] MEDS: Calcium Acetate 667 MG CAPSULE PO SCH ×2 (08:23→12:00)
[2019-01-03] MEDS ORDERED: Aspirin 81 MG TAB.CHEW PO SCH (09:00)
[2019-01-03] MEDS ORDERED: Venlafaxine XR (24 HR) 150 MG CAP.ER.24H PO SCH (09:00)
--- NOTE | 2019-01-03 12:05 | Cardiology Consult Note ---
<Andrea Bazzi - Last Filed: 01/03/19 14:19> Date of Encounter: 01/03/19 Time of Encounter: 12:03 Assessment and Plan (1) Elevated troponin Status: Acute Troponin elevated up to 0.95. Patient denies chest pain. Possible type II MO in the setting of hypoxia and hypoglycemia with ESRD. EKG with SR and ST deviation that is improved from EKG in October 2017. Recent LHC showing 1/3 patent bypass. TTE 10/2018- EFLVEF 45%. Normal right ventricular structure and function. Mild- moderate tricuspid regurgitation. Moderate pulmonary hypertension.Estimated RVSP is 49 mmHg. Mild aortic stenosis. Technically sub-optimal due to poor echocardiographic windows. Recommend limited study with Definity Re-peat TTE today shows EF 50-55%. Medical management recommended. Patient agrees with plan and prefers conservative medical therapy. (2) CAD (coronary artery disease) Status: Chronic H/o CABG x 3 vessel. Last LHC 10/2017 1/3 patent bypass grafts. [employer]-LAD patent. Continue BB, statin, and asa Qualifiers: Coronary Disease-Associated Artery/Lesion type: bypass graft [place] vs. transplanted heart: [place] heart Associated angina: with unstable angina Qualified Code(s): I25.700 - Atherosclerosis of coronary artery bypass graft(s), unspecified, with unstable angina pectoris (3) S/P CABG x 3 Status: Chronic Discussion w patient/family: The assessment and plan as outlined above was discussed with the patient and/or family members who expressed understanding and agreement. All questions were answered. Thank you for involving us in the care of your patient. Please call with any questions. History of Present Illness Consult date: 01/03/19 Requesting physician: Tg He Consult reason: elevated troponin Chief complaint: AMS History of present illness: Mr. Esquivel is a 78 year old male with past medical history significant for CABG, MO, ESRD on dialysis, DM type II, and HTN. He presented to the ED with AMS. He was found to have hypoglycemia with blood sugar at 42 and hypoxia. Cardiology consulted for elevated troponin up to 0.95. Mr. Esquivel is now alert and oriented. He denies chest pain or SOB. Denies orthopnea, PND, or edema. He is noted to have chronic troponin elevation in the setting of ESRD. LHC completed in October 2018 showing 2/3 occluded bypass and medical management recommended. He was seen in November for elevated troponin again with no chest pain. TTE at that time showed preserved EF. Medical management recommended. Past Med Surg Social Fam HX - Past Medical History Medical history: aortic aneurysm, arthritis, CHF, coronary artery disease, diabetes, dialysis, hyperlipidemia, hypertension, renal disease, other Additional medical history: BLADDER NECK CONTRACTURE, SQUAMOUS CELL CANCER. 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), triple bypass - Social History Smoking Status: Former smoker Smokeless Tobacco Status: No Alcohol use: none Drug use: none - Family History Father Adopted: No Family Member Ethnicity: Non- Living Status: Hx Family Cardiac Disorders: Yes ([place]) Mother Adopted: No Family Member Ethnicity: Non- Living Status: Hx Family Cancer: Yes Brother Family Member Ethnicity: Non- Living Status: Still Living Sister Adopted: No Family Member Ethnicity: Non- Living Status: Still Living Hx Family Cardiac Disorders: Yes Hx Family Respiratory Disorders: No Hx Family Cancer: Yes Hx Family GI Disorders: No Hx Family Endocrine Disorder: Yes Hx Family Neuromuscular Disorders: No Hx Family Neurologic Disorders: No Hx Family HEENT Disorders: No Hx Family Autoimmune Disorders: No Medications and Allergies Venlafaxine XR (24 HR) [Effexor Xr] 150 mg PO DAILY 01/15/18 [History] Trazodone HCl 100 mg PO HS PRN 01/31/18 [History] Calcium Acetate [Phos-LO] 1,334 mg PO TIDWM 07/03/18 [History] Nitroglycerin [Nitrostat] 0.4 mg SL Q5M PRN 07/04/18 [History] Aspirin [Lo-Dose Aspirin EC] 81 mg PO DAILY 08/23/18 [History] Guaifenesin [Mucinex] 600 mg PO BID PRN 10/17/18 [History] Ondansetron ODT [Zofran ODT] 4 mg SL Q6HR PRN 11/09/18 [History] Atorvastatin Calcium 80 mg PO DAILY 11/18/18 [History] Acetaminophen [Tylenol] 650 mg PO Q6HR PRN 12/09/18 [History] Ipratropium/Albuterol Sulfate [Iprat-Albut 0.5-3(2.5) mg/3 ml] 3 ml IH Q6H PRN 12/09/18 [History] Metoprolol Succinate [Toprol Xl] 25 mg PO DAILY 12/09/18 [History] Gabapentin [Neurontin] 100 mg PO TID #30 capsule 12/10/18 [Rx] Allergy/AdvReac Type Severity Reaction Status Date / Time No Known Allergies Allergy Verified 11/09/18 07:04 All Systems Review: The remainder of the systems were reviewed and are negative Physical Examination Vital Signs, Last 4 Hours Temp Pulse Resp BP Pulse Ox 01/03/19 11:02 99.9 F H 76 17 101/54 98 General: Conversant, No Apparent Distress HEENT: Atraumatic, Normocephaly, Mucus Membranes Moist Neck: No JVD, Normal carotid pulses Cardiac: Reg Rate and Rhythm, Normal S1 and S2, No Murmur Lungs: Normal Breath Sounds, No Wheeze, Rales, Rhonchi Neuro: Alert and responsive, No focal deficits noted Abdomen: Soft, Non-Tender Skin: No rashes noted on visualized skin Musculoskeletal: No Chest Wall Tenderness Extremities: No Clubbing, No Cyanosis, No Edema, Normal Pulses, Other (L extremity with dressing over AV fustula) Results 01/03/19 00:47 01/03/19 00:47 Lab Results 01/02/19 01/02/19 01/03/19 14:57 20:16 00:47 WBC 4.8 Hgb 9.9 L Hct 33.7 L Plt Count 65 L Sodium Potassium Chloride Carbon Dioxide BUN Creatinine Glucose Calcium Magnesium Troponin I 0.14 H* 0.48 H* B-Natriuretic Peptide 01/03/19 01/03/19 01/03/19 00:47 00:47 07:07 WBC Hgb Hct Plt Count Sodium 135 L Potassium 4.0 Chloride 99 Carbon Dioxide 29 BUN 15 Creatinine 4.08 H Glucose 28 L* Calcium 7.4 L Magnesium 1.7 Troponin I 0.95 H* B-Natriuretic Peptide 1271 H - Imaging and Cardiology Echo: report reviewed - EKG Interpretation EKG results cardiology: personally reviewed Consult Discharge Plan - Plan Referrals: David Strange DO [Resident] - 01/06/19 8:20 am (Please follow up as schedule...) NONE,PCP [Primary Care Provider] - HAS-BLED Score - Score Abnormal renal function: Dialysis, Transplant, or CR>2.26 mg/dl Elderly: Age>65 years Medication usage predisposing to bleeding: Antiplatelet agents, NSAIDs, Anticoagulants Score: 3 <Heather Reid - Last Filed: 01/03/19 19:17> Date of Encounter: 01/03/19 - Attending Attestation Patient was seen and evaluated independently by me. Findings, assessment and plan were discussed at length with patient, questions answered. Agree with nurse practitioner's/resident's documentation. Addition as follows, 78 yoCM ho 3-V CAD CABGX3 05/2017 last [facility] [id number] (for recurrent NSTEMI) revealed only 1/3 grafts patent (medical management), EF 50-55%, R-plurx catheter for pleural effusion, ESRD on HD, cirrhosis, DM/HTN/HLD. P/w AMS at the setting of severe hypoglycemia and hypoxemia. Trop to 0.9. No cp, dyspnea, palpitations. ECG SR, NS STT changes. Limited TTE EF 50-55%. A: NSTEMI, supply demand mismatch likely Severe hypoglycemia 3-V CAD CABGX3 05/2017 1/3 grafts patent, medical management ESRD on HD P: No further cardiac w/u inpatient f/u cardiology clinic Heather Reid MD, PhD Assessment and Plan Discussion w patient/family: The assessment and plan as outlined above was discussed with the patient and/or family members who expressed understanding and agreement. All questions were answered. Thank you for involving us in the care of your patient. Please call with any questions. History of Present Illness History of present illness: Mr. Esquivel is a 78 year old male All Systems Review: The remainder of the systems were reviewed and are negative Physical Examination Vital Signs, Last 4 Hours Temp Pulse Resp BP Pulse Ox 01/03/19 15:40 98.5 F 75 17 118/68 97 Results 01/03/19 00:47 01/03/19 00:47 Lab Results 01/02/19 01/03/19 01/03/19 20:16 00:47 00:47 WBC 4.8 Hgb 9.9 L Hct 33.7 L Plt Count 65 L Sodium 135 L Potassium 4.0 Chloride 99 Carbon Dioxide 29 BUN 15 Creatinine 4.08 H Glucose 28 L* Calcium 7.4 L Magnesium 1.7 Troponin I 0.48 H* B-Natriuretic Peptide 01/03/19 01/03/19 00:47 07:07 WBC Hgb Hct Plt Count Sodium Potassium Chloride Carbon Dioxide BUN Creatinine Glucose Calcium Magnesium Troponin I 0.95 H* B-Natriuretic Peptide 1271 H
--- NOTE | 2019-01-03 15:14 | Discharge Summary ---
- NOTES TO OUTPATIENT PROVIDER Notes to Outpatient Provider: Patient was admitted to the hospital for altered mental status. Upon arrival to the emergency room patient found with hypoglycemia. Patient received dextrose and his blood glucose came up. Patient also had a troponin elevated on initial workup. Patient with troponin trended. Cardiology also on consult. Cardiology did not recommend any invasive management and advised to continue medical management. Please follow up with patient on outpatient basis and optimize medical management for his coronary artery disease. Please follow up on blood culture report. Orders not resulted at time of discharge: Pending orders 01/02/19 10:54 Culture,Blood [BC] Stat Date of Encounter: 01/03/19 Time of Encounter: 15:11 - Discharge Diagnosis (1) Altered mental status Priority: Primary Status: Acute Qualifiers: Altered mental status type: unspecified Qualified Code(s): R41.82 - Altered mental status, unspecified (2) Hypoglycemia Priority: Secondary Status: Acute (3) Elevated troponin Priority: Secondary Status: Acute (4) Hypotension Priority: Secondary Status: Acute Qualifiers: Hypotension type: hypotension due to drug Qualified Code(s): I95.2 - Hypotension due to drugs (5) S/P CABG x 3 Priority: Secondary Status: Chronic (6) CHF (congestive heart failure) Priority: Secondary Status: Chronic Qualifiers: Heart failure type: diastolic Heart failure chronicity: chronic Qualified Code(s): I50.32 - Chronic diastolic (congestive) heart failure (7) Chronic respiratory failure with hypoxia Priority: Secondary Status: Chronic (8) ESRD (end stage renal disease) on dialysis Priority: Secondary Status: Chronic (9) CAD (coronary artery disease) Priority: Secondary Status: Chronic Qualifiers: Coronary Disease-Associated Artery/Lesion type: bypass graft [place] vs. transplanted heart: [place] heart Associated angina: with unstable angina Qualified Code(s): I25.700 - Atherosclerosis of coronary artery bypass graft(s), unspecified, with unstable angina pectoris (10) Diabetes Priority: Secondary Status: Chronic Qualifiers: Diabetes mellitus type: type 2 Diabetes mellitus intermediate insulin use: without long term care pharmacist use Diabetes mellitus complication status: with kidney complications Diabetes mellitus complication detail: with nephropathy Q ualified Code(s): E11.21 - Type 2 diabetes mellitus with diabetic nephropathy (11) HLD (hyperlipidemia) Priority: Secondary Status: Chronic Qualifiers: Hyperlipidemia type: unspecified Qualified Code(s): E78.5 - Hyperlipidemia, unspecified (12) HTN (hypertension) Priority: Secondary Status: Chronic Qualifiers: Hypertension type: essential hypertension Qualified Code(s): I10 - Essential (primary) hypertension (13) Pleural effusion Priority: Secondary Status: Chronic (14) DVT prophylaxis Priority: Secondary Status: Acute Hospital course: Mr. Esquivel is a 78 year old male with past medical history significant for coronary artery disease status post coronary artery bypass graft, hyperlipidemia, hypertension, presents to the emergency department with compl aint of altered mental status. Upon arrival patient was found to be hypoglycemic. Patient was also hypoxic and he was placed on the supplement oxygen. Patient readdressed 2 L at home for chronic pleural effusion due to his end-stage renal disease. Patient also had elevated troponin. Patient was admitted for 23 observation. Patient's troponin was trended which was going up. Echocardiogram ordered which which did not show any acute changes from previous echo done in November 2018. Cardiology was consulted. Cardiology did not recommend at this point any visual management. Continue current medical management. Patient subsequently improved. Patient's metformin was hold during the hospital stay. Patient was discharged in stable condition. Follow-up with primary care provider. Patient follows with cardiology on outpatient basis. Continue medical management with aspirin, beta claudia, and statin. Patient was advised to hold metformin for a few days and then restarted once he back to his regular diabetic and renal diet. Discharge discussed with: patient, family, nurse, social work, case management - Time Spent with Patient Total time spent providing and/or coordinating discharge services:40 Time spent: Greater than 30 minutes - Discharge Medications Prescriptions: Continued Venlafaxine XR (24 HR) [Effexor Xr] 150 mg PO DAILY Trazodone HCl 100 mg PO HS PRN PRN Reason: Sleep Calcium Acetate [Phos-LO] 1,334 mg PO TIDWM Nitroglycerin [Nitrostat] 0.4 mg SL Q5M PRN PRN Reason: Chest Pain Aspirin [Lo-Dose Aspirin EC] 81 mg PO DAILY Guaifenesin [Mucinex] 600 mg PO BID PRN PRN Reason: Cough Ondansetron ODT [Zofran ODT] 4 mg SL Q6HR PRN PRN Reason: Nausea Atorvastatin Calcium 80 mg PO DAILY Acetaminophen [Tylenol] 650 mg PO Q6HR PRN PRN Reason: Pain Ipratropium/Albuterol Sulfate [Iprat-Albut 0.5-3(2.5) mg/3 ml] 3 ml IH Q6H PRN PRN Reason: Shortness Of Breath Metoprolol Succinate [Toprol Xl] 25 mg PO DAILY Gabapentin [Neurontin] 100 mg PO TID #30 capsule Discontinued OxyCODONE Oral CONC [Oxycodone Oral Conc] 5 - 10 mg SL Q4H PRN 5 Days #20 oral.syg PRN Reason: MOderate to severe pain LORazepam [Ativan] 0.5 mg PO BID 5 Days #10 tablet Home Medications: Venlafaxine XR (24 HR) [Effexor Xr] 150 mg PO DAILY 01/15/18 [History] Trazodone HCl 100 mg PO HS PRN 01/31/18 [History] Calcium Acetate [Phos-LO] 1,334 mg PO TIDWM 07/03/18 [History] Nitroglycerin [Nitrostat] 0.4 mg SL Q5M PRN 07/04/18 [History] Aspirin [Lo-Dose Aspirin EC] 81 mg PO DAILY 08/23/18 [History] Guaifenesin [Mucinex] 600 mg PO BID PRN 10/17/18 [History] Ondansetron ODT [Zofran ODT] 4 mg SL Q6HR PRN 11/09/18 [History] Atorvastatin Calcium 80 mg PO DAILY 11/18/18 [History] Acetaminophen [Tylenol] 650 mg PO Q6HR PRN 12/09/18 [History] Ipratropium/Albuterol Sulfate [Iprat-Albut 0.5-3(2.5) mg/3 ml] 3 ml IH Q6H PRN 12/09/18 [History] Metoprolol Succinate [Toprol Xl] 25 mg PO DAILY 12/09/18 [History] Gabapentin [Neurontin] 100 mg PO TID #30 capsule 12/10/18 [Rx] Allergies/Adverse Reactions: Allergy/AdvReac Type Severity Reaction Status Date / Time No Known Allergies Allergy Verified 11/09/18 07:04 Date of admission: 01/02/19 14:52 Primary care physician: PCP NONE Consults: 01/02/19 15:15 Consult to Dialysis [CONS] ONCE 01/02/19 15:29 Consult to Cardiology [CONS] Stat Comment: Consulting Provider: Cardiology Faye Reason for Consult: Elevated troponin with hypotension Call Completed: Yes 01/02/19 15:33 Consult to Nephrology [CONS] Stat Consulting Provider: Kidney Faye/AGUSTINA/TRAN/SHRADDHA Reason for Consult: ESRD requirinf dualysis Call Completed: Yes 01/02/19 21:21 Consult to Concrete Analyst [CONS] Routine Reason for SW Consult: discharge planning 01/03/19 08:58 Consult to Nurse Navigator [CONS] Routine Comment: hd Discharging clinician: Rey He - Constitutional Vitals: Temp Pulse Resp BP Pulse Ox 99.9 F H 76 17 101/54 98 01/03/19 11:02 01/03/19 11:02 01/03/19 11:02 01/03/19 11:02 01/03/19 11:02 General appearance: Present: cooperative, A&O X 3 Exam: General: A & O 3, In no acute distress HENNT: PERRLA. Head atraumatic and makes supple CVS S1 and S2 regular, no murmur RS: Clear to air entry bilaterally, b/l basal rales Abdomen: Soft and nontender. Bowel sounds normal 4 Extremities: No cyanosis, clubbing, and edema Neurology: Cranial II-XII normal. Motor strength 5/5 bilaterally. Sensation intact - Patient Status Disposition: Home, Self-Care Condition: Good Overall status at discharge: patient is progressing back to baseline - Discharge Instructions Follow Up With: NONE,PCP [Primary Care Provider] - - Diet and Activity Activity: as per physical therapy
[2019-01-03 15:41] VITALS: BP 118/68
== END 2019-01-03 17:57 | disposition home or self-care (01) ==
LOC: 2ANU 10:20 → EMEROOARM 10:20 → 2ANU 15:32
PROVIDERS: ADMIT Student in an Organized Health Care Education/Training Program; ATTEND Student in an Organized Health Care Education/Training Program

== ENCOUNTER 2019-01-06 03:20 | Observation (INO) ==
[2019-01-06] MEDS ORDERED: Aspirin 81 MG TAB.CHEW PO ONE (03:24)
[2019-01-06] MEDS ORDERED: Ipratropium/Albuterol Neb 3 ML IH ONE (03:24)
[2019-01-06] MEDS ORDERED: Nitroglycerin 1 INCH/GM PACKET TP ONE (03:32)
[2019-01-06 03:59] LABS: Basophils # 0.1 K/mcL (0.0-0.2); Basophils % 1.1 %; Eosinophils # 0.5 K/mcL (0.0-0.6); Eosinophils % 9.6 %; Hematocrit 31.9 % (37.5-50.1); Hemoglobin 9.8 g/dL (12.9-16.9); Immature Granulocytes % 0.2 % (0-4); Lymphocytes % 21.7 %; Mean Corpuscular HGB Conc 30.7 g/dL (31.6-35.5); Mean Corpuscular Hemoglobin 29.2 pg (28.0-33.3); Mean Corpuscular Volume 94.9 fL (83.0-100.0); Mean Platelet Volume 10.5 fL (9.4-12.4); Monocytes # 0.6 K/mcL (0.0-1.3); Monocytes % 11.7 %; Neutrophils # 2.6 K/mcL (1.6-8.9); Red Blood Count 3.36 M/mcL (4.19-5.50); Red Cell Distribution Width 15.1 % (11.5-14.5); Segmented Neutrophils % 55.7 %; White Blood Count 4.7 K/mcL (4.3-11.1)
[2019-01-06 04:01] LABS: Platelet Count 87 K/mcL (140-400)
[2019-01-06 04:07] LABS: INR 1.3
[2019-01-06 04:09] LABS: Activated Partial Thrombo Time 29.4 Seconds (26.0-36.0)
[2019-01-06 04:20] LABS: Calcium 7.5 mg/dL (8.6-10.3); Potassium 4.8 mEq/L (3.5-5.1)
[2019-01-06 04:23] LABS: Troponin I 0.22 ng/mL (< 0.04)
[2019-01-06] MEDS ORDERED: Furosemide 20 MG/2 ML VIAL IVP ONE (04:56)
[2019-01-06] MEDS ORDERED: Ipratropium/Albuterol Neb 3 ML IH PRN (07:23)
[2019-01-06] MEDS ORDERED: Nitroglycerin 0.4 MG TAB.SUBL SL PRN (07:23)
[2019-01-06] MEDS ORDERED: Naloxone 0.4 MG/ML INJ IVP PRN (07:43)
[2019-01-06] MEDS ORDERED: *HR* Dextrose 50 % in Water (Syg) 50 ML SYRINGE IVP PRN (08:00)
[2019-01-06] MEDS ORDERED: Dextrose Gel 15 GM/37.5 ML TUBE PO PRN ×2 (08:00)
[2019-01-06] MEDS ORDERED: D5% in Water 1,000 ML IVC PRN (08:00)
[2019-01-06] MEDS ORDERED: 0.9 % Sodium Chloride 250 ML IVC PRN (08:35)
[2019-01-06] MEDS: Calcium Acetate 667 MG CAPSULE PO SCH ×3 (08:42→17:15)
[2019-01-06] MEDS: Gabapentin 100 MG CAPSULE PO SCH ×3 (08:43→20:16)
[2019-01-06] MEDS: Aspirin Enteric Coated 81 MG Tablet PO SCH (08:43)
[2019-01-06] MEDS: Metoprolol XL (24 HR) Succ 25 MG TAB.ER.24H PO SCH (08:43)
[2019-01-06] MEDS: Venlafaxine XR (24 HR) 150 MG CAP.ER.24H PO SCH (08:43)
[2019-01-06] MEDS ORDERED: 0.9 % Sodium Chloride 1,000 ML PRIME SCH (08:45)
[2019-01-06] MEDS: Ondansetron ODT 4 MG TAB.RAPDIS SL PRN ×2 (10:03→21:05)
[2019-01-06] MEDS: traZODone 50 MG TABLET PO PRN (21:04)
[2019-01-07 07:29] LABS: Eosinophils % 12.6 %; Hemoglobin 10.1 g/dL (12.9-16.9); Immature Granulocytes % 0.3 % (0-4)
[2019-01-07 07:31] LABS: Eosinophils # 0.5 K/mcL (0.0-0.6); Immature Platelets 3.7 % (1.1-6.1); Lymphocytes # 0.8 K/mcL (0.6-4.6); Lymphocytes % 20.7 %; Mean Corpuscular HGB Conc 30.6 g/dL (31.6-35.5); Mean Corpuscular Hemoglobin 29.2 pg (28.0-33.3); Mean Corpuscular Volume 95.4 fL (83.0-100.0); Monocytes # 0.4 K/mcL (0.0-1.3); Monocytes % 10.9 %; Neutrophils # 2.2 K/mcL (1.6-8.9); Red Blood Count 3.46 M/mcL (4.19-5.50); Segmented Neutrophils % 54.5 %
[2019-01-07 07:37] LABS: Platelet Count 83 K/mcL (140-400)
[2019-01-07 07:38] LABS: Platelet Estimate Decreased (Normal)
[2019-01-07 07:46] LABS: Albumin 2.6 g/dL (3.5-5.7); Calcium 7.8 mg/dL (8.6-10.3); Phosphorous 3.3 mg/dL (2.7-4.5); Potassium 3.9 mEq/L (3.5-5.1)
[2019-01-07] MEDS: Metoprolol XL (24 HR) Succ 25 MG TAB.ER.24H PO SCH (07:58)
[2019-01-07] MEDS: Gabapentin 100 MG CAPSULE PO SCH ×3 (07:58→19:49)
[2019-01-07] MEDS: Calcium Acetate 667 MG CAPSULE PO SCH ×3 (07:58→17:02)
[2019-01-07] MEDS: Venlafaxine XR (24 HR) 150 MG CAP.ER.24H PO SCH (07:58)
[2019-01-07] MEDS: Aspirin Enteric Coated 81 MG Tablet PO SCH (07:58)
[2019-01-07] MEDS ORDERED: *HR* LORazepam 1 MG TABLET PO ONE (12:36)
[2019-01-07] MEDS: traZODone 50 MG TABLET PO PRN (19:49)
[2019-01-08] MEDS: Calcium Acetate 667 MG CAPSULE PO SCH ×3 (07:37→17:29)
[2019-01-08] MEDS: Aspirin Enteric Coated 81 MG Tablet PO SCH (07:37)
[2019-01-08] MEDS: Gabapentin 100 MG CAPSULE PO SCH ×3 (07:37→20:15)
[2019-01-08] MEDS: Metoprolol XL (24 HR) Succ 25 MG TAB.ER.24H PO SCH (07:37)
[2019-01-08] MEDS: Venlafaxine XR (24 HR) 150 MG CAP.ER.24H PO SCH (07:37)
[2019-01-08 09:13] LABS: Basophils % 0.8 %; Hemoglobin 10.2 g/dL (12.9-16.9)
[2019-01-08 09:15] LABS: Eosinophils # 0.8 K/mcL (0.0-0.6); Eosinophils % 20.3 %; Hematocrit 33.2 % (37.5-50.1); Lymphocytes # 0.9 K/mcL (0.6-4.6); Lymphocytes % 23.7 %; Mean Corpuscular HGB Conc 30.7 g/dL (31.6-35.5); Mean Corpuscular Hemoglobin 29.7 pg (28.0-33.3); Mean Corpuscular Volume 96.8 fL (83.0-100.0); Mean Platelet Volume 9.8 fL (9.4-12.4); Monocytes # 0.4 K/mcL (0.0-1.3); Monocytes % 10.5 %; Neutrophils # 1.7 K/mcL (1.6-8.9); Red Blood Count 3.43 M/mcL (4.19-5.50); Segmented Neutrophils % 44.7 %; White Blood Count 3.9 K/mcL (4.3-11.1)
[2019-01-08 09:21] LABS: Platelet Count 79 K/mcL (140-400); Platelet Estimate Decreased (Normal)
[2019-01-08 10:50] LABS: Potassium 4.4 mEq/L (3.5-5.1)
[2019-01-08] MEDS ORDERED: Benzonatate 100 MG CAPSULE PO PRN (12:44)
[2019-01-08] MEDS: traZODone 50 MG TABLET PO PRN (20:15)
[2019-01-09] MEDS ORDERED: 0.9 % Sodium Chloride 250 ML IVC PRN (07:00)
[2019-01-09] MEDS: Venlafaxine XR (24 HR) 150 MG CAP.ER.24H PO SCH (08:19)
[2019-01-09] MEDS: Calcium Acetate 667 MG CAPSULE PO SCH ×3 (08:19→17:24)
[2019-01-09] MEDS: Gabapentin 100 MG CAPSULE PO SCH ×3 (08:19→22:01)
[2019-01-09] MEDS: Aspirin Enteric Coated 81 MG Tablet PO SCH (08:19)
[2019-01-09] MEDS ORDERED: *HR* Heparin 10,000 UNIT/10 ML VIAL IV PRN (08:35)
[2019-01-09 09:15] LABS: Hemoglobin 10.2 g/dL (12.9-16.9); Mean Corpuscular HGB Conc 30.4 g/dL (31.6-35.5)
[2019-01-09 09:17] LABS: Basophils % 0.4 %; Eosinophils # 0.8 K/mcL (0.0-0.6); Eosinophils % 18.5 %; Hematocrit 33.6 % (37.5-50.1); Immature Granulocytes % 0.4 % (0-4); Immature Platelets 3.4 % (1.1-6.1); Lymphocytes # 1.2 K/mcL (0.6-4.6); Lymphocytes % 25.6 %; Mean Corpuscular Hemoglobin 29.1 pg (28.0-33.3); Mean Platelet Volume 9.7 fL (9.4-12.4); Monocytes # 0.4 K/mcL (0.0-1.3); Monocytes % 9.4 %; Neutrophils # 2.1 K/mcL (1.6-8.9); Red Cell Distribution Width 14.9 % (11.5-14.5); Segmented Neutrophils % 45.7 %; White Blood Count 4.5 K/mcL (4.3-11.1)
[2019-01-09 09:21] LABS: Platelet Count 77 K/mcL (140-400)
[2019-01-09] MEDS ORDERED: *HR* LORazepam 1 MG TABLET PO ONE (09:21)
[2019-01-09 10:04] LABS: Calcium 8.2 mg/dL (8.6-10.3)
[2019-01-09] MEDS ORDERED: Acetaminophen 325 MG TABLET PO PRN (11:41)
[2019-01-09] MEDS: Metoprolol XL (24 HR) Succ 25 MG TAB.ER.24H PO SCH (14:17)
[2019-01-09] MEDS: traZODone 50 MG TABLET PO PRN (22:07)
[2019-01-10 06:01] LABS: Immature Granulocytes % 0.2 % (0-4); Mean Corpuscular HGB Conc 30.5 g/dL (31.6-35.5); Red Cell Distribution Width 14.8 % (11.5-14.5)
[2019-01-10 06:03] LABS: Basophils # 0.1 K/mcL (0.0-0.2); Basophils % 1.1 %; Eosinophils # 0.9 K/mcL (0.0-0.6); Hematocrit 31.8 % (37.5-50.1); Hemoglobin 9.7 g/dL (12.9-16.9); Immature Platelets 5.1 % (1.1-6.1); Lymphocytes # 1.1 K/mcL (0.6-4.6); Lymphocytes % 24.2 %; Mean Corpuscular Hemoglobin 29.8 pg (28.0-33.3); Mean Corpuscular Volume 97.8 fL (83.0-100.0); Mean Platelet Volume 10.2 fL (9.4-12.4); Monocytes # 0.5 K/mcL (0.0-1.3); Monocytes % 10.4 %; Red Blood Count 3.25 M/mcL (4.19-5.50); Segmented Neutrophils % 44.1 %; White Blood Count 4.5 K/mcL (4.3-11.1)
[2019-01-10 06:06] LABS: Platelet Count 76 K/mcL (140-400)
[2019-01-10 06:24] LABS: Calcium 8.1 mg/dL (8.6-10.3); Potassium 4.6 mEq/L (3.5-5.1)
[2019-01-10] MEDS: Metoprolol XL (24 HR) Succ 25 MG TAB.ER.24H PO SCH (08:55)
[2019-01-10] MEDS: Calcium Acetate 667 MG CAPSULE PO SCH ×2 (08:56→15:31)
[2019-01-10] MEDS: Aspirin Enteric Coated 81 MG Tablet PO SCH (08:56)
[2019-01-10] MEDS: Gabapentin 100 MG CAPSULE PO SCH (08:56)
[2019-01-10] MEDS: Venlafaxine XR (24 HR) 150 MG CAP.ER.24H PO SCH (08:56)
[2019-01-10 16:31] VITALS: BP 158/74
== END 2019-01-10 22:04 ==
LOC: EMEROOARM 03:20 → 2NENU 03:20 → SUATTDRO 05:43 → 2NENU 05:49
PROVIDERS: ADMIT Internal Medicine; ATTEND Internal Medicine

== ENCOUNTER 2019-02-13 12:47 | Inpatient (IN) ==
[2019-02-13] MEDS ORDERED: Ipratropium/Albuterol Neb 3 ML IH ONE (13:18)
[2019-02-13] MEDS ORDERED: methylPREDNISolone 125 MG/2 ML VIAL IVP ONE (13:18)
[2019-02-13 13:35] LABS: Hemoglobin 10.7 g/dL (12.9-16.9); Mean Corpuscular Hemoglobin 29.5 pg (28.0-33.3); Red Blood Count 3.63 M/mcL (4.19-5.50); Red Cell Distribution Width 17.1 % (11.5-14.5)
[2019-02-13 13:36] LABS: Basophils % 0.7 %; Eosinophils # 0.9 K/mcL (0.0-0.6); Eosinophils % 15.4 %; Hematocrit 34.8 % (37.5-50.1); Immature Granulocytes % 0.2 % (0-4); Immature Platelets 10.7 % (1.1-6.1); Lymphocytes # 1.6 K/mcL (0.6-4.6); Lymphocytes % 27.3 %; Mean Corpuscular HGB Conc 30.7 g/dL (31.6-35.5); Mean Corpuscular Volume 95.9 fL (83.0-100.0); Mean Platelet Volume 10.9 fL (9.4-12.4); Monocytes # 0.5 K/mcL (0.0-1.3); Monocytes % 8.5 %; Neutrophils # 2.8 K/mcL (1.6-8.9); Platelet Count 54 K/mcL (140-400); Segmented Neutrophils % 47.9 %; White Blood Count 5.9 K/mcL (4.3-11.1)
[2019-02-13 13:45] LABS: INR 1.5; Prothrombin Time 16.5 Seconds (9.4-12.1)
[2019-02-13 14:00] LABS: Troponin I 0.65 ng/mL (< 0.04)
--- NOTE | 2019-02-13 14:07 | Electrocardiograph Report ---
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
[2019-02-13 14:09] LABS: Albumin 2.8 g/dL (3.5-5.7); Albumin/Globulin Ratio 0.6 (1.1-2.2); Bilirubin,Direct 0.5 mg/dL (0.0-0.2); Bilirubin,Indirect 0.3 mg/dL (0.0-1.2); Bilirubin,Total 0.8 mg/dL (0.3-1.0); Calcium 7.5 mg/dL (8.6-10.3); Globulin 4.7 g/dL (2.4-3.5); Potassium 4.1 mEq/L (3.5-5.1); Total Protein 7.5 g/dL (6.4-8.9)
[2019-02-13] MEDS ORDERED: Aspirin 81 MG TAB.CHEW PO ONE (14:26)
[2019-02-13] MEDS ORDERED: Furosemide 40 MG in 0.9 % Sodium Chloride 50 ML IV STA (14:27)
[2019-02-13] MEDS ORDERED: Ondansetron ODT 4 MG TAB.RAPDIS SL PRN (15:39)
[2019-02-13] MEDS ORDERED: *HR* Promethazine 25 MG/ML VIAL IVP PRN (15:39)
[2019-02-13] MEDS ORDERED: Naloxone 0.4 MG/ML INJ IVP PRN (15:39)
--- NOTE | 2019-02-13 15:45 | Emergency Department Note ---
Disposition Clinical Impression: CHF (congestive heart failure) Qualifiers: Heart failure type: unspecified Heart failure chronicity: acute Qualified Code(s): I50.9 - Heart failure, unspecified Disposition: Admitted As Inpatient Condition: Fair Referrals: NONE,PCP [Primary Care Provider] - Forms: ED Satisfaction Letter Time of Disposition: 14:45 SOB HPI - General Chief Complaint: ED Shortness of Breath/Dyspnea Stated Complaint: KAVON Time Seen by Provider: 02/13/19 13:02 Source: patient, EMS Limitations: no limitations Nursing Notes Reviewed: Yes Vital Signs Reviewed: Yes - History of Present Illness This is a 78-year-old gentleman was presents to note a complaint of shortness of breath the past 4-5 days. Patient states that he feels that this lungs are full with fluid. He denies any chest pain. Denies any cough or congestion. Symptoms are worse with exertion. He denies any recent illness. Describes symptoms as moderate. Patient says that he has had similar presentation in the past before and has had fluid taken off as lungs. Pt Subjective Complaint: shortness of breath Severity: moderate Consistency/Duration: constant Improves with: rest Worsens with: exertion Known history of: COPD, congestive heart failure - Related Data Home Medications Medication Instructions Recorded Confirmed Venlafaxine XR (24 HR) [Effexor Xr] 150 mg PO DAILY 01/15/18 02/13/19 Trazodone HCl 100 mg PO HS PRN 01/31/18 02/13/19 Calcium Acetate [Phos-LO] 1,334 mg PO TIDWM 07/03/18 02/13/19 Nitroglycerin [Nitrostat] 0.4 mg SL Q5M PRN 07/04/18 02/13/19 Aspirin [Lo-Dose Aspirin EC] 81 mg PO DAILY 08/23/18 02/13/19 Ondansetron ODT [Zofran ODT] 4 mg SL Q6HR PRN 11/09/18 02/13/19 Atorvastatin Calcium 80 mg PO DAILY 11/18/18 02/13/19 Acetaminophen [Tylenol] 650 mg PO Q6HR PRN 12/09/18 02/13/19 Ipratropium/Albuterol Sulfate 3 ml IH Q6H PRN 12/09/18 02/13/19 [Iprat-Albut 0.5-3(2.5) mg/3 ml] Metoprolol Succinate [Toprol Xl] 25 mg PO DAILY 12/09/18 02/13/19 HYDROcodone/Acet 5/325 mg [[place] 1 tab PO Q6H PRN 02/10/19 02/13/19 5-325 mg] LORazepam [Ativan] 0.5 mg PO BID 02/10/19 02/13/19 Morphine Oral CONC [Roxanol] 0.25 ml PO Q4H PRN 02/13/19 02/13/19 Previous Rx's Medication Instructions Recorded Gabapentin [Neurontin] 100 mg PO TID #30 capsule 12/10/18 Calcitriol [Rocaltrol] 0.5 mcg PO DAILY #30 capsule 02/11/19 HydrOXYzine [Atarax] 10 mg PO QID 30 Days #120 tablet 02/11/19 Allergies Allergy/AdvReac Type Severity Reaction Status Date / Time No Known Allergies Allergy Verified 11/09/18 07:04 All systems ED: reviewed and negative except as stated. Constitutional: Denies: fever, chills, weakness ENT ED: Denies: congestion Cardiovascular: Reports: dyspnea on exertion. Denies: chest pain, palpitations Respiratory: Reports: dyspnea, wheezes Gastrointestinal: Denies: abdominal pain, nausea, vomiting Past Medical History - Past Medical History Medical history: Reports: aortic aneurysm, arthritis, cancer, CHF, coronary artery disease, diabetes, dialysis, hyperlipidemia, hypertension, renal disease, other Surgical history: Reports: angioplasty/stent, coronary bypass (CABG), orthopedic, other, other Psychiatric history: Reports: anxiety, depression - Social History Smoking Status: Former smoker Smokeless Tobacco Status: No Alcohol use: Reports: none Drug use: Reports: none Physical Exam - General Limitations: no limitations General appearance: alert, in no apparent distress - Head Head exam: atraumatic, normocephalic, normal inspection - Eye Eye exam: Present: normal appearance, PERRL, EOMI - Expanded Eye Exam Pupils: Left: reactive - ENT ENT exam: normal exam, normal oropharynx, mucous membranes moist - Expanded ENT Exam External ear exam: Present: normal external inspection Mouth exam: Present: normal external inspection Teeth exam: Present: normal inspection Throat exam: Present: normal inspection - Neck Neck exam: Present: normal inspection, full ROM, trachea midline - Chest Chest inspection: Present: normal inspection, symmetric chest wall rise - Respiratory Respiratory exam: Present: wheezes, other (There are diffuse scattered wheezes. There are also rales in lung bases. Bilateral peripheral edema.) - Cardiovascular Cardiovascular exam: Present: regular rate, normal rhythm, normal heart sounds - Abdominal Exam Abdominal exam: Present: soft, Non-Tender. Absent: tenderness, distention, guarding, rebound, rigidity - Extremities Exam Extremities exam: Present: normal inspection, full ROM. Absent: tenderness, pedal edema - Expanded Upper Extremity Exam Shoulder exam: Present: normal inspection, full ROM Arm exam: Present: normal inspection, full ROM Elbow exam: Present: normal inspection, full ROM Forearm/Wrist exam: Present: normal inspection, full ROM Hand exam: Present: normal inspection, full ROM Vascular exam: Normal: capillary refill, radial pulse - Expanded Lower Extremity Exam Hip/Pelvis exam: Present: normal inspection, full ROM Upper leg exam: Present: normal inspection, full ROM Knee exam: Present: normal inspection, full ROM Lower leg exam: Present: normal inspection, full ROM, swelling Ankle exam: Present: normal inspection, full ROM, swelling Foot/toe exam: Present: normal inspection, full ROM Neurovascular/Tendon exam: Absent: motor deficit, sensory deficit, tendon deficit - Back Exam Back exam: Present: normal inspection, full ROM. Absent: tenderness - Neurological Exam Neurological exam: Present: alert, oriented X3 - Expanded Neurological Exam Patient oriented to: Present: person, place, time Coma Scale Eye Opening: Spontaneous Coma Scale Motor Response: Obeys Commands Coma Scale Verbal Response: Oriented Coma Scale Total: 15 - Psychiatric Psychiatric exam: Present: normal affect, normal mood - Skin Skin exam: Present: warm, dry, intact, normal color Course Vital Signs Temperature 98.5 F 02/13/19 12:53 Pulse Rate 72 02/13/19 12:53 Respiratory Rate 18 02/13/19 12:53 Blood Pressure 126/74 02/13/19 12:53 O2 Sat by Pulse Oximetry 100 02/13/19 12:53 Temperature 98.5 F 02/13/19 12:53 Pulse Rate 71 02/13/19 15:00 Respiratory Rate 18 02/13/19 15:00 Blood Pressure 115/69 02/13/19 15:00 O2 Sat by Pulse Oximetry 99 02/13/19 15:00 Oxygen Delivery Oxygen Delivery Nasal Cannula Shortness of Breath/Dyspnea - MDM Narrative Medical decision making narrative: Differential diagnosis includes CHF exacerbation versus COPD versus pneumonia. EKG reviewed. No acute changes from his previous EKG. [id number] The patient is doing well. Feels better after neb treatment and Lasix. Labs and imaging reviewed and discussed. Patient's care discussed with the hospitalist. We will admit for CHF exacerbation. - Lab Data Result diagrams: 02/13/19 13:22 02/13/19 13:22 Lab Results 02/13/19 02/13/19 02/13/19 Range/Units 13:22 13:22 13:22 WBC 5.9 (4.3-11.1) K/mcL RBC 3.63 L (4.19-5.50) M/mcL Hgb 10.7 L (12.9-16.9) g/dL Hct 34.8 L (37.5-50.1) % MCV 95.9 (83.0-100.0) fL MCH 29.5 (28.0-33.3) pg MCHC 30.7 L (31.6-35.5) g/dL RDW 17.1 H (11.5-14.5) % Plt Count 54 L (140-400) K/mcL MPV 10.9 (9.4-12.4) fL Immature Gran % 0.2 (0-4) % Seg Neutrophils % 47.9 % Lymphocytes % 27.3 % Monocytes % 8.5 % Eosinophils % 15.4 % Basophils % 0.7 % Neutrophils # 2.8 (1.6-8.9) K/mcL Lymphocytes # 1.6 (0.6-4.6) K/mcL Monocytes # 0.5 (0.0-1.3) K/mcL Eosinophils # 0.9 H (0.0-0.6) K/mcL Basophils # 0.0 (0.0-0.2) K/mcL Immature Plt Fraction 10.7 H (1.1-6.1) % PT (9.4-12.1) Seconds INR Sodium 137 (136-145) mEq/L Potassium 4.1 (3.5-5.1) mEq/L Chloride 96 L (98-107) mEq/L Carbon Dioxide 33 H (23-29) mEq/L BUN 18 (8-23) mg/dL Creatinine 6.06 H (0.70-1.30) mg/dL Est GFR ( Amer) 11 L (> 60) Est GFR (Non-Af Amer) 9 L (> 60) BUN/Creatinine Ratio 3 L (6-26) Glucose 86 (70-105) mg/dL Calculated Osmolality 285 (280-300) Calcium 7.5 L (8.6-10.3) mg/dL Total Bilirubin 0.8 (0.3-1.0) mg/dL Direct Bilirubin 0.5 H (0.0-0.2) mg/dL Indirect Bilirubin 0.3 (0.0-1.2) mg/dL AST 13 (13-39) Units/L ALT 7 (7-52) Units/L Alkaline Phosphatase 91 (34-104) Units/L Troponin I 0.65 H* (< 0.04) ng/mL B-Natriuretic Peptide 2933 H (Less than 100) pg/mL Serum Total Protein 7.5 (6.4-8.9) g/dL Albumin 2.8 L (3.5-5.7) g/dL Globulin 4.7 H (2.4-3.5) g/dL Albumin/Globulin Ratio 0.6 L (1.1-2.2) 02/13/19 Range/Units 13:22 WBC (4.3-11.1) K/mcL RBC (4.19-5.50) M/mcL Hgb (12.9-16.9) g/dL Hct (37.5-50.1) % MCV (83.0-100.0) fL MCH (28.0-33.3) pg MCHC (31.6-35.5) g/dL RDW (11.5-14.5) % Plt Count (140-400) K/mcL MPV (9.4-12.4) fL Immature Gran % (0-4) % Seg Neutrophils % % Lymphocytes % % Monocytes % % Eosinophils % % Basophils % % Neutrophils # (1.6-8.9) K/mcL Lymphocytes # (0.6-4.6) K/mcL Monocytes # (0.0-1.3) K/mcL Eosinophils # (0.0-0.6) K/mcL Basophils # (0.0-0.2) K/mcL Immature Plt Fraction (1.1-6.1) % PT 16.5 H (9.4-12.1) Seconds INR 1.5 Sodium (136-145) mEq/L Potassium (3.5-5.1) mEq/L Chloride (98-107) mEq/L Carbon Dioxide (23-29) mEq/L BUN (8-23) mg/dL Creatinine (0.70-1.30) mg/dL Est GFR ( Amer) (> 60) Est GFR (Non-Af Amer) (> 60) BUN/Creatinine Ratio (6-26) Glucose (70-105) mg/dL Calculated Osmolality (280-300) Calcium (8.6-10.3) mg/dL Total Bilirubin (0.3-1.0) mg/dL Direct Bilirubin (0.0-0.2) mg/dL Indirect Bilirubin (0.0-1.2) mg/dL AST (13-39) Units/L ALT (7-52) Units/L Alkaline Phosphatase (34-104) Units/L Troponin I (< 0.04) ng/mL B-Natriuretic Peptide (Less than 100) pg/mL Serum Total Protein (6.4-8.9) g/dL Albumin (3.5-5.7) g/dL Globulin (2.4-3.5) g/dL Albumin/Globulin Ratio (1.1-2.2)
--- NOTE | 2019-02-13 16:17 | Internal Med History&Physical ---
Date of Encounter: 02/13/19 Time of Encounter: 16:09 Internal Medicine - H&P: HPI Chief complaint: Shortness of breath Admitted From: Home Plans for Post Hospital Care: Home History of present illness: Mr. Esquivel is a 78 year old male with history of end-stage renal disease on dialysis Wednesday, cirrhosis, CAD, and medical noncompliance presents with shortness of breath. Patient states that he has felt short of breath for the past 4-5 days. Reportedly, patient has missed one full session of dialysis and cut other sessions short because he is feeling short of breath during dialysis sessions. History of anxiety issues during dialysis sessions. Feels that his lungs and abdomen are full of fluid. Denies cough or sputum production. Some lower extremity edema. Denies chest pain. Past Med Surg Social Fam HX - Past Medical History Medical history: aortic aneurysm, arthritis, cancer, CHF, coronary artery disease, diabetes, dialysis, hyperlipidemia, hypertension, renal disease, other Additional medical history: BLADDER NECK CONTRACTURE, SQUAMOUS CELL CANCER;. 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), triple bypass - Social History Smoking Status: Former smoker Smokeless Tobacco Status: No Alcohol use: none Drug use: none - Family History Father Adopted: No Family Member Ethnicity: Non- Living Status: Hx Family Cardiac Disorders: Yes ([place]) Mother Adopted: No Family Member Ethnicity: Non- Living Status: Hx Family Cancer: Yes Brother Family Member Ethnicity: Non- Living Status: Still Living Sister Adopted: No Family Member Ethnicity: Non- Living Status: Still Living Hx Family Cardiac Disorders: Yes Hx Family Respiratory Disorders: No Hx Family Cancer: Yes Hx Family GI Disorders: No Hx Family Endocrine Disorder: Yes Hx Family Neuromuscular Disorders: No Hx Family Neurologic Disorders: No Hx Family HEENT Disorders: No Hx Family Autoimmune Disorders: No Internal Medicine - H&P: Meds Venlafaxine XR (24 HR) [Effexor Xr] 150 mg PO DAILY 01/15/18 [History] Trazodone HCl 100 mg PO HS PRN 01/31/18 [History] Calcium Acetate [Phos-LO] 1,334 mg PO TIDWM 07/03/18 [History] Nitroglycerin [Nitrostat] 0.4 mg SL Q5M PRN 07/04/18 [History] Aspirin [Lo-Dose Aspirin EC] 81 mg PO DAILY 08/23/18 [History] Ondansetron ODT [Zofran ODT] 4 mg SL Q6HR PRN 11/09/18 [History] Atorvastatin Calcium 80 mg PO DAILY 11/18/18 [History] Acetaminophen [Tylenol] 650 mg PO Q6HR PRN 12/09/18 [History] Ipratropium/Albuterol Sulfate [Iprat-Albut 0.5-3(2.5) mg/3 ml] 3 ml IH Q6H PRN 12/09/18 [History] Metoprolol Succinate [Toprol Xl] 25 mg PO DAILY 12/09/18 [History] Gabapentin [Neurontin] 100 mg PO TID #30 capsule 12/10/18 [Rx] HYDROcodone/Acet 5/325 mg [[place] 5-325 mg] 1 tab PO Q6H PRN 02/10/19 [History] LORazepam [Ativan] 0.5 mg PO BID 02/10/19 [History] Calcitriol [Rocaltrol] 0.5 mcg PO DAILY #30 capsule 02/11/19 [Rx] HydrOXYzine [Atarax] 10 mg PO QID 30 Days #120 tablet 02/11/19 [Rx] Morphine Oral CONC [Roxanol] 0.25 ml PO Q4H PRN 02/13/19 [History] Allergy/AdvReac Type Severity Reaction Status Date / Time No Known Allergies Allergy Verified 11/09/18 07:04 Review of systems: General: Fevers / Chills / Weight loss / Night sweats Eyes: Blurry Vision / Change in Vision HENT: Ear Pain / Ear Drainage / Rhinorrhea / Throat Pain / Lymphadenopathy Cardiovascular: Chest Pain / Palpatations / Orthopnea / PIERRE / Weight gain Lungs: Dyspnea / Wheezing / Cough / Sputum production / Pleurisy Abdomen: Abdomen pain / Abdominal distention / Nausea / Vomiting / Diarrhea / Const : Dysuria / Urinary Frequency / Urinary Urgency / Hematuria Extremities: LE edema / Ext pain / Ext erythema Skin: Rashes / Abrasions / Contusions Psych: Hallucinations / Anxiety / Depression Neuro: Weakness / Numbness / Tingling / Facial Droop / Dysphagia - Constitutional Vitals: Temp Pulse Resp BP Pulse Ox 97.5 F L 71 16 130/71 93 02/13/19 16:04 02/13/19 16:04 02/13/19 16:04 02/13/19 16:04 02/13/19 16:04 Exam: General: Ill-appearing and in no acute distress HEENT: No erythema of posterior pharynx. No exudates. Lymphatics: No mandibular or cervical lymphadenopathy Cardiovascular: RRR. No murmurs. No chest wall tenderness. Lungs: Basilar crackles. Regular chest rise. Abdomen: Non-tender. Soft. No rebound or gaurding. Nl bowel sounds. Extremities: Trace edema. 2+ pulses radial and pedal pulses Skin: No rahses, abrasions, or contusions. Nl cap refill. Psych: Nl attention. A&Ox3 Neuro: obstetrical anesthesiologist II-XII intact. 5/5 strength. Sensation to light touch and pinprick intact. Internal Med - H&P Results - Labs CBC & Chem 7: 02/13/19 13:22 02/13/19 13:22 Labs: Short CBC 02/13/19 Range/Units 13:22 WBC 5.9 (4.3-11.1) K/mcL Hgb 10.7 L (12.9-16.9) g/dL Hct 34.8 L (37.5-50.1) % Plt Count 54 L (140-400) K/mcL Neutrophils # 2.8 (1.6-8.9) K/mcL BMP 02/13/19 13:22 Sodium 137 Potassium 4.1 Chloride 96 L Carbon Dioxide 33 H BUN 18 Creatinine 6.06 H Glucose 86 Calcium 7.5 L Cardiac Enzymes 02/13/19 Range/Units 13:22 Troponin I 0.65 H* (< 0.04) ng/mL Liver Function 02/13/19 Range/Units 13:22 Total Bilirubin 0.8 (0.3-1.0) mg/dL Direct Bilirubin 0.5 H (0.0-0.2) mg/dL AST 13 (13-39) Units/L ALT 7 (7-52) Units/L Alkaline Phosphatase 91 (34-104) Units/L Albumin 2.8 L (3.5-5.7) g/dL - Impressions ITS Impressions Chest X-Ray 02/13/19 14:03 IMPRESSION: Small right pleural effusion and streaky bibasilar opacities, unchanged peer edema and atelectasis versus infection D/ / Virginia Lee MD / Virginia Lee MD Interpreting Provider: Virginia Lee MD - Assessment and Plan (1) Anasarca associated with disorder of kidney Current Visit: Yes Status: Acute Assessment and plan: Patient with history of end-stage renal disease on dialysis Wednesday, cirrhosis, CAD, and medical noncompliance presents with shortness of breath in the setting of missing a dialysis session and cutting other dialysis sessions short. -Says that he has been cutting dialysis session short because of shortness of breath -History of anxiety during dialysis sessions -Had an admission almost exactly like this a few days ago -Also complaining of abdominal distention: Has moderate ascites, however, abdomen not tense but rather spongy - paracentesis at bedside attempted but not safe because of this. Will send patient to IR PLAN: - Discussed with nephrology - plan for dialysis tomorrow - We will trial patient on Haldol during dialysis sessions to see if he does better at this - Therapeutic paracentesis for IR (2) ESRD (end stage renal disease) Current Visit: Yes Status: Acute Assessment and plan: See above (3) Elevated troponin Current Visit: Yes Status: Acute Assessment and plan: Elevated troponin on admission. Chronically elevated in the setting of end-st age renal disease but seems to be more elevated than his baseline. No nchest pain. - Repeat troponin - if still trending up will consult cardiology (4) CAD (coronary artery disease) Current Visit: Yes Status: Acute Assessment and plan: History of CABG. - Continue cardiac package Qualifiers: Coronary Disease-Associated Artery/Lesion type: [place] artery [place] vs. transplanted heart: [place] heart Associated angina: without angina Qualified Code(s): I25.10 - Atherosclerotic heart disease of [place] coronary artery without angina pectoris
[2019-02-13] MEDS ORDERED: *HR* OxyCODONE Immed Rel 5 MG TABLET PO PRN (19:16)
[2019-02-13] MEDS: traZODone 50 MG TABLET PO PRN (23:05)
[2019-02-14 07:03] LABS: Hemoglobin 9.7 g/dL (12.9-16.9); Mean Corpuscular Volume 94.6 fL (83.0-100.0)
[2019-02-14 07:04] LABS: Hematocrit 31.7 % (37.5-50.1); Immature Platelets 7.9 % (1.1-6.1); Mean Corpuscular HGB Conc 30.6 g/dL (31.6-35.5); Mean Platelet Volume 11.9 fL (9.4-12.4); Red Blood Count 3.35 M/mcL (4.19-5.50); Red Cell Distribution Width 16.9 % (11.5-14.5); White Blood Count 3.7 K/mcL (4.3-11.1)
[2019-02-14 07:29] LABS: Calcium 7.3 mg/dL (8.6-10.3); Potassium 5.4 mEq/L (3.5-5.1)
--- NOTE | 2019-02-14 09:31 | Internal Med Progress Note ---
<Goyo Cotton - Last Filed: 02/14/19 16:47> Hospitalist Progress Note - Encounter Date of Encounter: 02/14/19 - Exam Vitals: Temp Pulse Resp BP Pulse Ox 98.1 F 100 16 102/55 100 02/14/19 16:25 02/14/19 16:25 02/14/19 16:25 02/14/19 16:25 02/14/19 16:25 - Assessment and Plan (1) Fluid overload Current Visit: Yes Status: Acute (2) Anasarca associated with disorder of kidney Current Visit: Yes Status: Acute (3) ESRD (end stage renal disease) Current Visit: Yes Status: Acute (4) Elevated troponin Current Visit: Yes Status: Acute (5) CAD (coronary artery disease) Current Visit: Yes Status: Acute (6) Anxiety Current Visit: Yes Status: Chronic - Time Spent with Patient Total time spent is greater than 50% in coordination of care (as documented) at patient's floor/unit and/or counseling patient: Internal Medicine: Result - Labs CBC & Chem 7: 02/14/19 06:14 02/14/19 06:14 Labs: Short CBC 02/14/19 Range/Units 06:14 WBC 3.7 L (4.3-11.1) K/mcL Hgb 9.7 L (12.9-16.9) g/dL Hct 31.7 L (37.5-50.1) % Plt Count 42 L (140-400) K/mcL BMP 02/14/19 06:14 Sodium 135 L Potassium 5.4 H D Chloride 96 L Carbon Dioxide 26 BUN 29 H Creatinine 7.27 H Glucose 155 H Calcium 7.3 L Cardiac Enzymes 02/13/19 02/14/19 Range/Units 17:27 06:14 Troponin I 0.54 H* 0.34 H* (< 0.04) ng/mL - ABG Interpretation ABG results: PT/INR, D-dimer PT 16.5 Seconds (9.4-12.1) H 02/13/19 13:22 Consult Discharge Plan - Plan Referrals: NONE,PCP [Primary Care Provider] - - Attending Attestation The history, physical exam, and medical decision making was performed by the medical student either while I was physically present and actively involved or I personally re-performed the exam and medical decision making. I have verified the accuracy of the medical student's documentation with regards to the history, physical exam findings, and medical decision making on 02/14/19. Mr Esquivel is currently hospitalized for volume overload due to noncompliance with dialysis. He remains moderate to high risk due to potential for worsening clinical status. Mr Esquivel is resting post dialysis. No new issues. Feels about the same. Exam: Alert. Comfortable. NC. Mucus membranes dry. EOMI. Neck supple. Heart with murmur. Lungs diminished. Abd soft. Moves all extremities. No rash. I/P 1. Volume overload - dialysis today. 2. Anxiety - psych to see if there is something more we can do. 3. Medical noncompliance. Further diagnoses and plan as above. <Luc Sheppard - Last Filed: 02/14/19 16:59> Hospitalist Progress Note - Encounter Date of Encounter: 02/14/19 Time of Encounter: 09:31 - Subjective Interval History: Pt was asleep in bed with nasal cannula in his mouth when I arrived; he had also stripped completely of his gown and was naked. After waking him up he said his breathing his better, that he was cold, and denies any chest pains, trouble breathing, abdominal pain, diarrhea, constipation. Does say he has some dis comfort because he has to pee. No events overnight. - Exam Vitals: Temp Pulse Resp BP Pulse Ox 97.6 F 104 16 155/67 94 02/14/19 07:57 02/14/19 07:57 02/14/19 07:57 02/14/19 07:57 02/14/19 07:57 Exam: Gen: NAD, pleasant, ill appearing CVS: 2/6 murmur possibly appreciated on right parasternal listening post. No edema present. S1, S2 Lungs: Symmetric expansion, diminished breath sounds B/L but air flow appreciated in all lung pastor posteriorly and B/L Abdominal: soft, non tender, no guarding Extremities: dorsal and radial pulses present B/L 2+ - Assessment and Plan (1) Anasarca associated with disorder of kidney Current Visit: Yes Status: Acute Assessment and Plan: Patient w/ hx of ESRD on MWF dialysis, cirrhosis, CAD, and medical noncompliance presented to ED c/o SOB in setting of missing dialysis session and cutting other dialysis sessions short. Dialysis sessions being cut short due to SOB & anxiety during session Haldol ordered for dialysis Similar admission for SOB/fluid overload earlier this month SCr 7.27 & K+ 5.5 on 02/14 Nephrology consulted and seen pt; planning for HD today and possibly tomorrow Clinically has improved; states SOB has improved no signs of edema on physical exam Will not pursue IR paracentesis at this time due to clinical stability Appreciate nephrology consult and will defer management to them (2) ESRD (end stage renal disease) Current Visit: Yes Status: Acute Assessment and Plan: See above (3) Elevated troponin Current Visit: Yes Status: Acute Assessment and Plan: Elevated troponin on admission. Suspect chronically elevated in the setting of end-stage renal disease. No active chest pain Repeat troponin is down to 0.34 from 0.54 on admission Will continue to monitor and consult cardiology if any worsening symptoms (4) CAD (coronary artery disease) Current Visit: Yes Status: Acute Assessment and Plan: Hx of CABG May 2017 ECHO performed 02/16 showed EF 45-50% Continue toprol - Time Spent with Patient Total time spent is greater than 50% in coordination of care (as documented) at patient's floor/unit and/or counseling patient: Internal Medicine: Result - Labs CBC & Chem 7: 02/14/19 06:14 02/14/19 06:14 Labs: Short CBC 02/13/19 02/14/19 Range/Units 13:22 06:14 WBC 5.9 3.7 L (4.3-11.1) K/mcL Hgb 10.7 L 9.7 L (12.9-16.9) g/dL Hct 34.8 L 31.7 L (37.5-50.1) % Plt Count 54 L 42 L (140-400) K/mcL Neutrophils # 2.8 (1.6-8.9) K/mcL BMP 02/13/19 02/14/19 13:22 06:14 Sodium 137 135 L Potassium 4.1 5.4 H D Chloride 96 L 96 L Carbon Dioxide 33 H 26 BUN 18 29 H Creatinine 6.06 H 7.27 H Glucose 86 155 H Calcium 7.5 L 7.3 L Cardiac Enzymes 02/13/19 02/13/19 02/14/19 Range/Units 13:22 17:27 06:14 Troponin I 0.65 H* 0.54 H* 0.34 H* (< 0.04) ng/mL Liver Function 02/13/19 Range/Units 13:22 Total Bilirubin 0.8 (0.3-1.0) mg/dL Direct Bilirubin 0.5 H (0.0-0.2) mg/dL AST 13 (13-39) Units/L ALT 7 (7-52) Units/L Alkaline Phosphatase 91 (34-104) Units/L Albumin 2.8 L (3.5-5.7) g/dL - ABG Interpretation ABG results: PT/INR, D-dimer PT 16.5 Seconds (9.4-12.1) H 02/13/19 13:22 - Impressions Impressions Chest X-Ray 02/13/19 14:03 IMPRESSION: Small right pleural effusion and streaky bibasilar opacities, unchanged peer edema and atelectasis versus infection D/ / Virginia Lee MD / Virginia Lee MD Interpreting Provider: Virginia Lee MD <Goyo Cotton - Last Filed: 02/14/19 16:47> (1) Fluid overload Qualifiers: Hypervolemia type: other Qualified Code(s): E87.79 - Other fluid overload (5) CAD (coronary artery disease) Qualifiers: Coronary Disease-Associated Artery/Lesion type: [place] artery [place] vs. transplanted heart: [place] heart Associated angina: without angina Qualified Code(s): I25.10 - Atherosclerotic heart disease of [place] coronary artery without angina pectoris <Luc Sheppard - Last Filed: 02/14/19 16:59> (4) CAD (coronary artery disease) Qualifiers: Coronary Disease-Associated Artery/Lesion type: [place] artery [place] vs. transplanted heart: [place] heart Associated angina: without angina Qualified Code(s): I25.10 - Atherosclerotic heart disease of [place] coronary artery without angina pectoris
[2019-02-14] MEDS ORDERED: 0.9 % Sodium Chloride 250 ML IVC PRN (10:07)
--- NOTE | 2019-02-14 10:07 | Nephrology Consult Note ---
Date of Encounter: 02/14/19 Time of Encounter: 10:01 Assessment and Plan (1) ESRD (end stage renal disease) Current Visit: Yes Status: Acute Current regimen is MWF at [facility]. Plan for HD today. Will assess for UF/HD tomorrow. Renal diet Renal vitamins Strict I/O Avoid nephrotoxins and renal dose all medications. Will order additional UF or HD as needed. (2) CAD (coronary artery disease) Current Visit: Yes Status: Acute Per primary. Qualifiers: Coronary Disease-Associated Artery/Lesion type: [place] artery [place] vs. transplanted heart: [place] heart Associated angina: without angina Qualified Code(s): I25.10 - Atherosclerotic heart disease of [place] coronary artery without angina pectoris (3) CHF (congestive heart failure) Current Visit: Yes Status: Chronic 1.5 Liter fluid restriction. Qualifiers: Heart failure type: unspecified Heart failure chronicity: acute Qualified Code(s): I50.9 - Heart failure, unspecified (4) Anasarca associated with disorder of kidney Current Visit: Yes Status: Acute Primary team discussed paracentesis in IR. Will monitor. Will offer additional UF/HD until euvolemic. (5) Anxiety Current Visit: Yes Status: Acute Pt more anxious than normal, he is well known to the practice. 1 mg PO Haldol given before HD. Psych consult placed for medication management. History of Present Illness - Reason for Consult Consult date: 02/14/19 end stage renal disease Requesting physician: Goyo Cotton - Chief Complaint difficulty in breathing - History of Present Illness Mr. Esquivel is a 78 year old male who presented to ED with shortness of breath. PMH: aortic aneurysm, arthritis, CHF, coronary artery disease, diabetes, HLD, HTN and ESRD. Current medicine is Wednesday at [facility]. Per Sherwood marlys patient has not missed any recent dialysis sessions altogether, however he has ran shorten times. Yesterday he ran 54 minutes in the day bef ore was only 34 minutes. Sessions are shorten due to patient anxiety. Haldol has been ordered to be given before. Eyes chest pain admits to shortness of breath. Denies nausea, vomiting or diarrhea. States shortness of breath has been ongoing for approximately 5 days. He lives at home with . Denies EtOH, illicit drug use or tobacco use. No family history of chronic kidney disease or hemodialysis. [facility] were consult it to manage inpatient dialysis. Will plan for di alysis today. Past Med Surg Social Fam HX - Past Medical History Medical history: aortic aneurysm, arthritis, cancer, CHF, coronary artery disease, diabetes, dialysis, hyperlipidemia, hypertension, renal disease, other Additional medical history: BLADDER NECK CONTRACTURE, SQUAMOUS CELL CANCER;. 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), triple bypass - Social History Smoking Status: Former smoker Smokeless Tobacco Status: No Alcohol use: none Drug use: none - Family History Father Adopted: No Family Member Ethnicity: Non- Living Status: Hx Family Cardiac Disorders: Yes ([place]) Mother Adopted: No Family Member Ethnicity: Non- Living Status: Hx Family Cancer: Yes Brother Family Member Ethnicity: Non- Living Status: Still Living Sister Adopted: No Family Member Ethnicity: Non- Living Status: Still Living Hx Family Cardiac Disorders: Yes Hx Family Respiratory Disorders: No Hx Family Cancer: Yes Hx Family GI Disorders: No Hx Family Endocrine Disorder: Yes Hx Family Neuromuscular Disorders: No Hx Family Neurologic Disorders: No Hx Family HEENT Disorders: No Hx Family Autoimmune Disorders: No Medications and Allergies Venlafaxine XR (24 HR) [Effexor Xr] 150 mg PO DAILY 01/15/18 [History] Trazodone HCl 100 mg PO HS PRN 01/31/18 [History] Calcium Acetate [Phos-LO] 1,334 mg PO TIDWM 07/03/18 [History] Nitroglycerin [Nitrostat] 0.4 mg SL Q5M PRN 07/04/18 [History] Aspirin [Lo-Dose Aspirin EC] 81 mg PO DAILY 08/23/18 [History] Ondansetron ODT [Zofran ODT] 4 mg SL Q6HR PRN 11/09/18 [History] Atorvastatin Calcium 80 mg PO DAILY 11/18/18 [History] Acetaminophen [Tylenol] 650 mg PO Q6HR PRN 12/09/18 [History] Ipratropium/Albuterol Sulfate [Iprat-Albut 0.5-3(2.5) mg/3 ml] 3 ml IH Q6H PRN 12/09/18 [History] Metoprolol Succinate [Toprol Xl] 25 mg PO DAILY 12/09/18 [History] Gabapentin [Neurontin] 100 mg PO TID #30 capsule 12/10/18 [Rx] HYDROcodone/Acet 5/325 mg [[place] 5-325 mg] 1 tab PO Q6H PRN 02/10/19 [History] LORazepam [Ativan] 0.5 mg PO BID 02/10/19 [History] Calcitriol [Rocaltrol] 0.5 mcg PO DAILY #30 capsule 02/11/19 [Rx] HydrOXYzine [Atarax] 10 mg PO QID 30 Days #120 tablet 02/11/19 [Rx] Morphine Oral CONC [Roxanol] 0.25 ml PO Q4H PRN 02/13/19 [History] Allergy/AdvReac Type Severity Reaction Status Date / Time No Known Allergies Allergy Verified 11/09/18 07:04 Review of Systems All Systems review (narrative): The remainder of the systems are negative. Constitutional: fatigue, no chills, no fever(s) Cardiovascular: dyspnea, dyspnea on exertion, edema, no chest pain Respiratory: dyspnea, dyspnea on exertion, no cough, no hemoptysis, no wheezing Gastrointestinal: no diarrhea, no nausea, no vomiting Exam - Vital Signs Vital signs: Initial Vital Signs Temp Pulse Resp BP Pulse Ox 98.5 F 72 18 126/74 100 02/13/19 12:53 02/13/19 12:53 02/13/19 12:53 02/13/19 12:53 02/13/19 12:53 Vital Signs - Last 8 Hours Temp Pulse Resp BP Pulse Ox 02/14/19 07:57 97.6 F 104 16 155/67 94 02/14/19 03:49 98.1 F 107 17 146/85 99 Intake and Output 02/13/19 02/14/19 02/14/19 23:59 07:59 15:59 Intake Total 60 / 114 60 / 60 Output Total 0 / 0 Balance 60 / 114 60 / 60 Intake: Oral 60 / 60 60 / 60 Output: Urine 0 / 0 Other: Weight 88.4 kg Blood Glucose* 138 114 Patient Weight 02/14/19 23:59 Weight 88.4 kg - General Appearance General appearance: chronically ill, frail EENT: ATNC, hearing intact, vision intact Neck: supple Respiratory: clear Cardiology: normal S1, normal S2 - Dialysis Access Dialysis Vascular Access: Arteriovenous Fistula thrill: Yes bruit: Yes Gastrointestinal: normoactive bowel sounds, no tenderness, no guarding Integumentary: no rash, warm and dry Neurologic: alert and oriented x3 Musculoskeletal: no deformities, no erythema Psychiatric: mood/affect appropriate, cooperative Results - Lab Results 02/14/19 06:14 02/14/19 06:14 Most recent lab results 02/14/19 06:14 Calcium 7.3 L Consult Discharge Plan - Plan Referrals: NONE,PCP [Primary Care Provider] -
[2019-02-14] MEDS ORDERED: Acetaminophen 325 MG TABLET PO PRN (10:12)
[2019-02-14] MEDS ORDERED: Ipratropium/Albuterol Neb 3 ML IH PRN (10:12)
[2019-02-14] MEDS ORDERED: 0.9 % Sodium Chloride 1,000 ML PRIME SCH (10:15)
[2019-02-14] MEDS: Calcium Acetate 667 MG CAPSULE PO SCH ×3 (12:49→16:57)
--- NOTE | 2019-02-14 16:05 | Electrocardiograph Report ---
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
[2019-02-14] MEDS: *HR* OxyCODONE Immed Rel 5 MG TABLET PO PRN (16:57)
[2019-02-15 02:29] LABS: Hemoglobin 10.7 g/dL (12.9-16.9); Immature Granulocytes % 0.2 % (0-4)
[2019-02-15 02:31] LABS: Basophils % 0.3 %; Eosinophils # 0.2 K/mcL (0.0-0.6); Eosinophils % 3.4 %; Hematocrit 34.8 % (37.5-50.1); Immature Platelets 7.5 % (1.1-6.1); Lymphocytes # 1.4 K/mcL (0.6-4.6); Lymphocytes % 23.4 %; Mean Corpuscular HGB Conc 30.7 g/dL (31.6-35.5); Mean Corpuscular Hemoglobin 29.4 pg (28.0-33.3); Mean Corpuscular Volume 95.6 fL (83.0-100.0); Mean Platelet Volume 10.8 fL (9.4-12.4); Monocytes # 0.6 K/mcL (0.0-1.3); Monocytes % 10.9 %; Red Blood Count 3.64 M/mcL (4.19-5.50); Segmented Neutrophils % 61.8 %; White Blood Count 5.9 K/mcL (4.3-11.1)
[2019-02-15 02:39] LABS: Neutrophils # 3.7 K/mcL (1.6-8.9); Platelet Count 59 K/mcL (140-400)
[2019-02-15 02:47] LABS: Calcium 7.4 mg/dL (8.6-10.3); Potassium 4.1 mEq/L (3.5-5.1)
[2019-02-15] MEDS ORDERED: 0.9 % Sodium Chloride 250 ML IVC PRN (07:12)
[2019-02-15] MEDS ORDERED: 0.9 % Sodium Chloride 1,000 ML PRIME SCH (07:15)
[2019-02-15] MEDS: Calcium Acetate 667 MG CAPSULE PO SCH ×4 (09:00→17:20)
[2019-02-15] MEDS: Metoprolol XL (24 HR) Succ 25 MG TAB.ER.24H PO SCH ×2 (09:01→12:15)
--- NOTE | 2019-02-15 09:03 | Consult Note ---
Date of Encounter: 02/15/19 Time of Encounter: 09:03 Assessment & Recommendation (1) Anxiety disorder, unspecified Current visit: Yes Status: Acute Assessment & Recommendation: Patient reports having always been "high strung", with increased anxiety during dialysis, which has resulted in early termination or altogether missed dialysis sessions. Home mediation list is significant for multiple mediations that can cause anxiety if abruptly discontinued; therefore, some of his dialysis-related anxiety may be related to abrupt withdrawal as these medications are removed. Additionally, patient is not able to provide any information regarding his home medications, and it is unclear if he is fully compliant, which is likely contributing to his symptoms as well. In general, effexor is not an ideal medication for hemodialysis patients, and does have a short half-life and patient is likely experiencing some withdrawal anxiety due to that. For dialysis patients, prozac is a better-tolerated medication and does have a long half-life. Of note, review of current medications demonstrates that he has not been receiving his home dose of effexor 150mg during this admission. Recommendations: - Begin to taper off effexor in favor of prozac, with 50% decrease in effexor dosage (from 150mg to 75mg); concurrently, start prozac 20mg. In 1-2 weeks, discontinue effexor completely and increase prozac to 40mg. If patient is unable to tolerate side effects from weaning of effexor, can decrease dose by 37.5mg instead. - Continue haldol PRN prior to dialysis. Though patient states that this does not help his symptoms, this has been used successfully during multiple sessions here in the hospital, as patient falls asleep and is able to tolerate his complete therapy. - Ideally, patient should have his mediations prescribed by a single provider. Currently, he appears to be getting gabapentin from one provider, with prescriptions for norco, ativan, and morphine from a separate clinic. Qualifiers: Anxiety disorder type: unspecified anxiety disorder Qualified Code(s): F41.9 - Anxiety disorder, unspecified History of Present Illness Requesting Physician: Jacqueline Treviño Reason for consult: Anxiety/depression History of present illness: Mr. Esquivel is a 78 year old male with an extensive medical history including ESRD on hemodialysis, CHF, CAD, anxiety, and depression who presented to the ED for evaluation of shortness of breath after missing hemodialysis. Patient has had multiple admissions for the same, and reports that he is unable to tolerate dialysis due to anxiety. Psychiatry consult was placed for medication recommendations that may help patient tolerate his therapy more consistently. Patient was evaluated this morning while undergoing dialysis therapy. He reports that he is generally "uptight" and prone to anxiety, particularly when under significant stress. He describes his anxiety as overall jitteriness, and states that he feels like "they're sticking me with needles all over"; he also reports shortness of breath and difficulty sleeping secondary to elevated anxiety. He endorses depression, but denies any suicidal or homicidal ideation. He states that he "just wants something to help so I an do my what I need to do". He reports that the medication given to him yesterday prior to dialysis did not seem to help with his anxiety; however, patient did fall asleep during his treatment and was able to complete his full course of hemodialysis. He is unable to provide a list of his home medications or how frequently he takes them, but states that he has been taking his effexor on a daily basis as prescribed. CC: Jacqueline Treviño Past Med Surg Social Fam HX - Past Medical History Medical history: aortic aneurysm, arthritis, cancer, CHF, coronary artery disease, diabetes, dialysis, hyperlipidemia, hypertension, renal disease, other - Past Psychiatric History Psychiatric history: Reports: anxiety, depression - Past Surgical History Surgical History: angioplasty/stent, coronary bypass (CABG), orthopedic, other, other - Social History Smoking Status: Former smoker Smokeless Tobacco Status: No Alcohol use: none Drug use: none - Family History Father Adopted: No Family Member Ethnicity: Non- Living Status: Hx Family Cardiac Disorders: Yes ([place]) Mother Adopted: No Family Member Ethnicity: Non- Living Status: Hx Family Cancer: Yes Brother Family Member Ethnicity: Non- Living Status: Still Living Sister Adopted: No Family Member Ethnicity: Non- Living Status: Still Living Hx Family Cardiac Disorders: Yes Hx Family Respiratory Disorders: No Hx Family Cancer: Yes Hx Family GI Disorders: No Hx Family Endocrine Disorder: Yes Hx Family Neuromuscular Disorders: No Hx Family Neurologic Disorders: No Hx Family HEENT Disorders: No Hx Family Autoimmune Disorders: No Medications & Allergies Venlafaxine XR (24 HR) [Effexor Xr] 150 mg PO DAILY 01/15/18 [History] Trazodone HCl 100 mg PO HS PRN 01/31/18 [History] Calcium Acetate [Phos-LO] 1,334 mg PO TIDWM 07/03/18 [History] Nitroglycerin [Nitrostat] 0.4 mg SL Q5M PRN 07/04/18 [History] Aspirin [Lo-Dose Aspirin EC] 81 mg PO DAILY 08/23/18 [History] Ondansetron ODT [Zofran ODT] 4 mg SL Q6HR PRN 11/09/18 [History] Atorvastatin Calcium 80 mg PO DAILY 11/18/18 [History] Acetaminophen [Tylenol] 650 mg PO Q6HR PRN 12/09/18 [History] Ipratropium/Albuterol Sulfate [Iprat-Albut 0.5-3(2.5) mg/3 ml] 3 ml IH Q6H PRN 12/09/18 [History] Metoprolol Succinate [Toprol Xl] 25 mg PO DAILY 12/09/18 [History] Gabapentin [Neurontin] 100 mg PO TID #30 capsule 12/10/18 [Rx] HYDROcodone/Acet 5/325 mg [[place] 5-325 mg] 1 tab PO Q6H PRN 02/10/19 [History] LORazepam [Ativan] 0.5 mg PO BID 02/10/19 [History] Calcitriol [Rocaltrol] 0.5 mcg PO DAILY #30 capsule 02/11/19 [Rx] HydrOXYzine [Atarax] 10 mg PO QID 30 Days #120 tablet 02/11/19 [Rx] Morphine Oral CONC [Roxanol] 0.25 ml PO Q4H PRN 02/13/19 [History] Allergy/AdvReac Type Severity Reaction Status Date / Time No Known Allergies Allergy Verified 11/09/18 07:04 Review of Systems Constitutional: Denies: fever, chills, weakness, weight change Cardiovascular: Denies: chest pain, palpitations, dyspnea on exertion Respiratory: Reports: dyspnea Gastrointestinal: Denies: abdominal pain, nausea, vomiting, diarrhea, constipation Genitourinary male: Denies: urgency, dysuria, frequency, genital lesions Musculoskeletal: Denies: joint swelling, joint pain Neurological: Denies: headache, weakness, numbness, memory loss Psychiatric: Reports: depression, anxiety, abnormal sleep pattern. Denies: suicidal ideation, homicidal ideation Hematologic/Lymphatic: Denies: easy bruising, lymphadenopathy Psychiatry Exam - Constitutional Vitals: Temp Pulse Resp BP Pulse Ox 98.2 F 106 18 139/82 98 02/15/19 08:14 02/15/19 08:14 02/15/19 08:14 02/15/19 08:14 02/15/19 08:14 General appearance: age & developmentally appropriate - Musculoskeletal Strength & Tone: normal for patient (grossly normal on evaluation) - Psychiatric Level of alertness: Alert Behavior: calm, cooperative, restless Psychomotor activity: Increased Eye Contact: Maintains Eye Contact Mood Description: Anxious Affect description: congruent with mood Speech Volume: Soft/Quiet Speech pattern: normal rate, normal rhythm, normal tone, appropriate, garbled Language & Vocabulary: consistent with education Thought Process: Linear, Goal Oriented Thought Content: No Suicidal ideation, No Homicidal ideation, No Overt delusions Perceptual Disturbances: No Auditory hallucinations, No Visual hallucinations Attention Span Ability: Capable of Focused Attention Memory Description: Grossly Intact Patient Reliability: Questionable Historian Results - Labs Labs: Laboratory Last Values WBC 5.9 K/mcL (4.3-11.1) D 02/15/19 01:15 RBC 3.64 M/mcL (4.19-5.50) L 02/15/19 01:15 Hgb 10.7 g/dL (12.9-16.9) L 02/15/19 01:15 Hct 34.8 % (37.5-50.1) L 02/15/19 01:15 MCV 95.6 fL (83.0-100.0) 02/15/19 01:15 MCH 29.4 pg (28.0-33.3) 02/15/19 01:15 MCHC 30.7 g/dL (31.6-35.5) L 02/15/19 01:15 RDW 17.0 % (11.5-14.5) H 02/15/19 01:15 Plt Count 59 K/mcL (140-400) L 02/15/19 01:15 MPV 10.8 fL (9.4-12.4) 02/15/19 01:15 Immature Gran % 0.2 % (0-4) 02/15/19 01:15 Seg Neutrophils % 61.8 % 02/15/19 01:15 Lymphocytes % 23.4 % 02/15/19 01:15 Monocytes % 10.9 % 02/15/19 01:15 Eosinophils % 3.4 % 02/15/19 01:15 Basophils % 0.3 % 02/15/19 01:15 Neutrophils # 3.7 K/mcL (1.6-8.9) 02/15/19 01:15 Lymphocytes # 1.4 K/mcL (0.6-4.6) 02/15/19 01:15 Monocytes # 0.6 K/mcL (0.0-1.3) 02/15/19 01:15 Eosinophils # 0.2 K/mcL (0.0-0.6) 02/15/19 01:15 Basophils # 0.0 K/mcL (0.0-0.2) 02/15/19 01:15 Immature Plt Fraction 7.5 % (1.1-6.1) H 02/15/19 01:15 PT 16.5 Seconds (9.4-12.1) H 02/13/19 13:22 INR 1.5 02/13/19 13:22 Sodium 137 mEq/L (136-145) 02/15/19 01:15 Potassium 4.1 mEq/L (3.5-5.1) 02/15/19 01:15 Chloride 95 mEq/L (98-107) L 02/15/19 01:15 Carbon Dioxide 33 mEq/L (23-29) H 02/15/19 01:15 BUN 22 mg/dL (8-23) 02/15/19 01:15 Creatinine 5.22 mg/dL (0.70-1.30) H 02/15/19 01:15 Est GFR ( Amer) 13 (> 60) L 02/15/19 01:15 Est GFR (Non-Af Amer) 11 (> 60) L 02/15/19 01:15 BUN/Creatinine Ratio 4 (6-26) L 02/15/19 01:15 Glucose 86 mg/dL (70-105) 02/15/19 01:15 POC Glucose 102 mg/dL (70-99) H 02/14/19 20:18 Calculated Osmolality 287 (280-300) 02/15/19 01:15 Calcium 7.4 mg/dL (8.6-10.3) L 02/15/19 01:15 Total Bilirubin 0.8 mg/dL (0.3-1.0) 02/13/19 13:22 Direct Bilirubin 0.5 mg/dL (0.0-0.2) H 02/13/19 13:22 Indirect Bilirubin 0.3 mg/dL (0.0-1.2) 02/13/19 13:22 AST 13 Units/L (13-39) 02/13/19 13:22 ALT 7 Units/L (7-52) 02/13/19 13:22 Alkaline Phosphatase 91 Units/L (34-104) 02/13/19 13:22 Troponin I 0.34 ng/mL (< 0.04) H* 02/14/19 06:14 B-Natriuretic Peptide 2933 pg/mL (Less than 100) H 02/13/19 13:22 Serum Total Protein 7.5 g/dL (6.4-8.9) 02/13/19 13:22 Albumin 2.8 g/dL (3.5-5.7) L 02/13/19 13:22 Globulin 4.7 g/dL (2.4-3.5) H 02/13/19 13:22 Albumin/Globulin Ratio 0.6 (1.1-2.2) L 02/13/19 13:22 Consult Discharge Plan - Plan Referrals: NONE,PCP [Primary Care Provider] - - Attending Attestation I examined this patient and my medical decision-making was reviewed with the Resident Physician. I agree with the documented findings, disposition and treatment plan as described except to the extent set forth below. Patient reports anxiety. No suicidal or homicidal thoughts ideations, or plans. He does not meet inpatient psychiatric criteria. I would recommend a medication other than Effexor as Effexor has a very short half-life and it is likely being dialyzed out every time he gets dialysis. Patient's can have very bad withdrawal symptoms from this including severe anxiety. Additionally he is apparently not fully compliant on outpatient which would make this even worse. Prozac has good evidence inpatient on dialysis. I recommend halfing the Effexor and adding Prozac 20 and then stopping Effexor and increasing Prozac to 40 after one to 2 weeks. If he has unbearable side effects with coming off Effexor at that rate it may need to be slowed down to reducing it by 37.5 mg daily. Medications were managed by one provider as it seems he has numerous providers managing different medications including controlled substances.
--- NOTE | 2019-02-15 10:28 | Nephrology Progress Note ---
Date of Encounter: 02/15/19 Time of Encounter: 10:26 - Assessment and Plan (1) ESRD (end stage renal disease) Current Visit: Yes Status: Acute Current regimen is MWF at [facility]. HD completed yesterday. Attempting HD today, having anxiety issues. Primary team at bedside, she is going to order Vistaril and titrate psych meds p er psych recommendations. IV Benadryl ordered and given at bedside. Will assess for UF/HD tomorrow. Renal diet Renal vitamins Strict I/O Avoid nephrotoxins and renal dose all medications. (2) CAD (coronary artery disease) Current Visit: Yes Status: Acute Per primary. Qualifiers: Coronary Disease-Associated Artery/Lesion type: [place] artery [place] vs. transplanted heart: [place] heart Associated angina: without angina Qualified Code(s): I25.10 - Atherosclerotic heart disease of [place] coronary artery without angina pectoris (3) CHF (congestive heart failure) Current Visit: Yes Status: Chronic 1.5 Liter fluid restriction. Qualifiers: Heart failure type: unspecified Heart failure chronicity: acute Qualified Code(s): I50.9 - Heart failure, unspecified (4) Anasarca associated with disorder of kidney Current Visit: Yes Status: Acute Will monitor. Will offer additional UF/HD until euvolemic. (5) Anxiety Current Visit: Yes Status: Chronic Pt more anxious than normal, he is well known to the practice. 1 mg PO Haldol given before HD, is not working well. Psych consult placed for medication management, primary physician will change medications. Subjective Principal diagnosis: difficulty in breathing Interval history: Pt seen and examined in HD. Pt is exhibiting signs of anxiety. States things are crawling all over him. Denies chest pain or shortness of breath. Objective - Vital Signs Vital signs: Vital Signs Temp Pulse Resp BP Pulse Ox 02/15/19 09:04 98 02/15/19 08:14 98.2 F 106 18 139/82 98 02/15/19 04:41 97.9 F 99 16 132/72 98 02/15/19 00:25 98.0 F 103 18 119/72 95 02/14/19 22:32 98 02/14/19 20:14 98.0 F 100 18 132/77 98 02/14/19 16:25 98.1 F 100 16 102/55 100 02/14/19 15:00 97.7 F 14 110/63 02/14/19 14:25 116/70 02/14/19 14:10 119/79 02/14/19 13:55 107/63 02/14/19 13:40 127/64 02/14/19 13:25 108/63 02/14/19 13:10 114/74 02/14/19 12:55 125/72 02/14/19 12:40 136/96 02/14/19 12:25 153/102 02/14/19 12:10 151/98 02/14/19 11:55 139/96 02/14/19 11:40 126/97 02/14/19 11:25 97.9 F 17 152/77 Intake and Output 02/14/19 02/15/19 02/15/19 23:59 07:59 15:59 Output Total 0 / 0 Balance 0 / 0 Output: Urine 0 / 0 Other: Stool Size Moderate Stool Consistency soft formed # Voids 1 # Bowel Movements 1 Weight 88.5 kg Blood Glucose* 102 76 Patient Weight 02/15/19 23:59 Weight 88.5 kg - General Appearance General appearance: Present: well-developed, well-nourished EENT: Present: ATNC, hearing intact, vision intact Neck: Present: supple Respiratory: Present: clear Cardiology: Present: no edema, normal S1, normal S2 Dialysis Vascular Access: Arteriovenous Fistula thrill: Yes bruit: Yes Gastrointestinal: Present: normoactive bowel sounds, no tenderness, no guarding Integumentary: Present: no rash, warm and dry Neurologic: Present: alert and oriented x3 Musculoskeletal: Present: no deformities, no erythema Psychiatric: Present: mood/affect appropriate, cooperative - Lab 02/15/19 01:15 02/15/19 01:15 Most recent lab results 02/15/19 01:15 Calcium 7.4 L Consult Discharge Plan - Plan Referrals: NONE,PCP [Primary Care Provider] -
--- NOTE | 2019-02-15 11:37 | Internal Med Progress Note ---
<Jacqueline Treviño - Last Filed: 02/15/19 14:09> Hospitalist Progress Note - Encounter Date of Encounter: 02/15/19 - Exam Vitals: Temp Pulse Resp BP Pulse Ox 97.9 F 108 20 149/53 98 02/15/19 12:07 02/15/19 12:07 02/15/19 11:21 02/15/19 12:07 02/15/19 09:04 - Assessment and Plan (1) Fluid overload Current Visit: Yes Status: Acute (2) Anasarca associated with disorder of kidney Current Visit: Yes Status: Acute (3) ESRD (end stage renal disease) Current Visit: Yes Status: Acute (4) Elevated troponin Current Visit: Yes Status: Acute (5) CAD (coronary artery disease) Current Visit: Yes Status: Acute (6) Anxiety Current Visit: Yes Status: Chronic - Time Spent with Patient Total time spent is greater than 50% in coordination of care (as documented) at patient's floor/unit and/or counseling patient: Internal Medicine: Result - Labs CBC & Chem 7: 02/15/19 01:15 02/15/19 01:15 Labs: Short CBC 02/15/19 Range/Units 01:15 WBC 5.9 D (4.3-11.1) K/mcL Hgb 10.7 L (12.9-16.9) g/dL Hct 34.8 L (37.5-50.1) % Plt Count 59 L (140-400) K/mcL Neutrophils # 3.7 (1.6-8.9) K/mcL BMP 02/15/19 01:15 Sodium 137 Potassium 4.1 Chloride 95 L Carbon Dioxide 33 H BUN 22 Creatinine 5.22 H Glucose 86 Calcium 7.4 L - ABG Interpretation ABG results: PT/INR, D-dimer PT 16.5 Seconds (9.4-12.1) H 02/13/19 13:22 Consult Discharge Plan - Plan Referrals: NONE,PCP [Primary Care Provider] - - Attending Attestation The history, physical exam, and medical decision making was performed by the medical student either while I was physically present and actively involved or I personally re-performed the exam and medical decision making. I have verified the accuracy of the medical student's documentation with regards to the history, physical exam findings, and medical decision making. 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 Pt is visibly upset tearful, stating he is anxious and itching and needs help. IV benadryl ordered by Nepro team and I agree. Per nephro team there are significant social stressors at home. Pt is not able to verbalize these stressors or if something has changed or why he feels anxious as he is too upset. States skin itches all over gen- alert, awake,appears stated age, tearful, anxious eyes- pupils equal round , no scleral icterus cv- reg rate and rhythm, no jvd lungs- ctabl, normal resp effort skin- warm dry normal color, small excoriations over arms/legs healing/scabbed without erythema neuro- AAOx3, CN grossly intact Volume overload in setting of ESRD with HD non compliance- HD as per nephro, pt tolerating full sessions with haldol previously but today did not, HD/UF next attempt in am Anxiety- appreciate psych eval and recs, will reduce effexor dose and begin prozac, cont home low dose vistaril prn Skin itching- has known liver cirrhotic changes however hepatic panel is normal and he has no jaundice, this may be related to taking morphine + norco at home and not completing full HD sessions, there is no evidence of infestation on ex am- prn vistaril, cont to monitor <Luc Sheppard - Last Filed: 02/15/19 15:31> Hospitalist Progress Note - Encounter Date of Encounter: 02/15/19 Time of Encounter: 11:37 - Subjective Interval History: Saw pt while he was in dialysis. Very jittery, stating that he is feeling anxious and needs something to calm him down. Said that "a lot of things" are making him anxious and that he has always been "high strung". He denies any CP, SOB, headaches, vision changes, abdominal pains. Said his breathing has improved since admission. - Exam Vitals: Temp Pulse Resp BP Pulse Ox 97.6 F 106 20 168/74 98 02/15/19 11:21 02/15/19 08:14 02/15/19 11:21 02/15/19 11:21 02/15/19 09:04 Exam: Gen: Anxious, distressed CVS: 2/6 murmur possibly appreciated on right parasternal listening post. No edema present. S1, S2 Lungs: Symmetric expansion, diminished breath sounds B/L but air flow appreciated in all lung pastor posteriorly and B/L Abdominal: some tenderness to palpation suprapubic, stomach has a spongy feel to it, minimal distention Extremities: dorsal and radial pulses present B/L 2+ - Assessment and Plan (1) Anxiety disorder, unspecified Current Visit: Yes Status: Acute Assessment and Plan: Patients current fluid overload status is secondary to early termination/missing dialysis sessions tertiary to increasing anxiety during dialysis Patient reports that he has always been "high strung" particularly with dialysis Psychiatry has been consulted and seen pt while in HD Patient is on multiple home anxiety medications that if abruptly d/c can cause anxiety; suspect that some of these episodes can be attributed to medication noncompliance/withdrawal It is difficult to determine if pt is compliant with medications given his inability to provide any information about them We appreciate psych input and will follow their recommendations: restart effexor XR at 75mg and start prozac 20mg PO daily; pt will have to follow up outpatient to continue tapering of effexor Keep haldol PRN for HD; pt states that this doesn't help him but while on it he has been able to complete his HD sessions (2) Anasarca associated with disorder of kidney Current Visit: Yes Status: Acute Assessment and Plan: Patient w/ hx of ESRD on MWF dialysis, cirrhosis, CAD, and medical noncompliance presented to ED c/o SOB in setting of missing dialysis session and cutting other dialysis sessions short. Dialysis sessions being cut short due to SOB & anxiety during session Haldol ordered for dialysis Similar admission for SOB/fluid overload earlier this month SCr 5.22 02/15 Nephrology consulted and seen pt Clinically has improved; states SOB has improved no signs of edema in extremities Appreciate nephrology consult and will defer management to them (3) ESRD (end stage renal disease) Current Visit: Yes Status: Acute Assessment and Plan: See above (4) Elevated troponin Current Visit: Yes Status: Acute Assessment and Plan: Elevated troponin on admission. Suspect chronically elevated in the setting of end-stage renal disease. 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 ECHO performed 02/16 showed EF 45-50% Continue toprol - Time Spent with Patient Total time spent is greater than 50% in coordination of care (as documented) at patient's floor/unit and/or counseling patient: Internal Medicine: Result - Labs CBC & Chem 7: 02/15/19 01:15 02/15/19 01:15 Labs: Short CBC 02/15/19 Range/Units 01:15 WBC 5.9 D (4.3-11.1) K/mcL Hgb 10.7 L (12.9-16.9) g/dL Hct 34.8 L (37.5-50.1) % Plt Count 59 L (140-400) K/mcL Neutrophils # 3.7 (1.6-8.9) K/mcL BMP 02/15/19 01:15 Sodium 137 Potassium 4.1 Chloride 95 L Carbon Dioxide 33 H BUN 22 Creatinine 5.22 H Glucose 86 Calcium 7.4 L - ABG Interpretation ABG results: PT/INR, D-dimer PT 16.5 Seconds (9.4-12.1) H 02/13/19 13:22 <Jacqueline Treviño - Last Filed: 02/15/19 14:09> (1) Fluid overload Qualifiers: Hypervolemia type: other Qualified Code(s): E87.79 - Other fluid overload (5) CAD (coronary artery disease) Qualifiers: Coronary Disease-Associated Artery/Lesion type: [place] artery [place] vs. transplanted heart: [place] heart Associated angina: without angina Qualified Code(s): I25.10 - Atherosclerotic heart disease of [place] coronary artery without angina pectoris <Luc Sheppard - Last Filed: 02/15/19 15:31> (1) Anxiety disorder, unspecified Qualifiers: Anxiety disorder type: unspecified anxiety disorder Qualified Code(s): F41.9 - Anxiety disorder, unspecified (5) CAD (coronary artery disease) Qualifiers: Coronary Disease-Associated Artery/Lesion type: [place] artery [place] vs. transplanted heart: [place] heart Associated angina: without angina Qualified Code(s): I25.10 - Atherosclerotic heart disease of [place] coronary artery without angina pectoris
[2019-02-15] MEDS: FLUoxetine 20 MG CAPSULE PO SCH (12:15)
[2019-02-15] MEDS: Venlafaxine XR (24 HR) 75 MG CAP.ER.24H PO SCH (12:15)
[2019-02-15] MEDS: *HR* OxyCODONE Immed Rel 5 MG TABLET PO PRN ×2 (14:37→20:16)
[2019-02-15] MEDS ORDERED: *HR* LORazepam 2 MG/ML VIAL IVP ONE (16:34)
[2019-02-15] MEDS: traZODone 50 MG TABLET PO PRN (20:16)
[2019-02-16 02:40] LABS: Hemoglobin 9.4 g/dL (12.9-16.9); Red Cell Distribution Width 16.8 % (11.5-14.5)
[2019-02-16 02:42] LABS: Hematocrit 30.9 % (37.5-50.1); Immature Platelets 5.5 % (1.1-6.1); Mean Corpuscular HGB Conc 30.4 g/dL (31.6-35.5); Mean Corpuscular Hemoglobin 29.3 pg (28.0-33.3); Mean Corpuscular Volume 96.3 fL (83.0-100.0); Mean Platelet Volume 10.3 fL (9.4-12.4); Red Blood Count 3.21 M/mcL (4.19-5.50)
[2019-02-16 02:45] LABS: Calcium 7.3 mg/dL (8.6-10.3); Potassium 4.1 mEq/L (3.5-5.1)
[2019-02-16] MEDS: *HR* OxyCODONE Immed Rel 5 MG TABLET PO PRN ×3 (05:23→22:20)
--- NOTE | 2019-02-16 08:01 | Internal Med Progress Note ---
<Jacqueline Treviño - Last Filed: 02/16/19 12:15> Hospitalist Progress Note - Encounter Date of Encounter: 02/16/19 - Exam Vitals: Temp Pulse Resp BP Pulse Ox 98.0 F 71 16 111/74 93 02/16/19 11:25 02/16/19 11:25 02/16/19 11:25 02/16/19 11:25 02/16/19 11:25 - Assessment and Plan (1) Fluid overload Current Visit: Yes Status: Acute (2) Anasarca associated with disorder of kidney Current Visit: Yes Status: Acute (3) ESRD (end stage renal disease) Current Visit: Yes Status: Acute (4) Elevated troponin Current Visit: Yes Status: Acute (5) CAD (coronary artery disease) Current Visit: Yes Status: Acute (6) Anxiety Current Visit: Yes Status: Chronic - Time Spent with Patient Total time spent is greater than 50% in coordination of care (as documented) at patient's floor/unit and/or counseling patient: Internal Medicine: Result - Labs CBC & Chem 7: 02/16/19 01:35 02/16/19 01:35 Labs: Short CBC 02/16/19 Range/Units 01:35 WBC 4.0 L (4.3-11.1) K/mcL Hgb 9.4 L (12.9-16.9) g/dL Hct 30.9 L (37.5-50.1) % Plt Count 48 L (140-400) K/mcL BMP 02/16/19 01:35 Sodium 138 Potassium 4.1 Chloride 97 L Carbon Dioxide 33 H BUN 20 Creatinine 5.07 H Glucose 95 Calcium 7.3 L - ABG Interpretation ABG results: PT/INR, D-dimer PT 16.0 Seconds (9.4-12.1) H 02/16/19 10:06 - Impressions Impressions Chest X-Ray 02/15/19 17:06 IMPRESSION: Partially loculated small right pleural effusion with right basilar atelectasis. No significant change since prior exam. D/ / Trenton Ann MD / Trenton Ann MD Interpreting Provider: Trenton Ann MD Abdomen Ultrasound 02/15/19 21:54 IMPRESSION: Small moderate ascites is identified within the right upper quadrant right lower quadrant. D/ / Rad Russo MD / Rad Russo MD Interpreting Provider: Rad Russo MD Consult Discharge Plan - Plan Referrals: NONE,PCP [Primary Care Provider] - - Attending Attestation The history, physical exam, and medical decision making was performed by the medical student either while I was physically present and actively involved or I personally re-performed the exam and medical decision making. I have verified the accuracy of the medical student's documentation with regards to the history, physical exam findings, and medical decision making. Mr Esquivel is being observed for volume overload due to noncompliance with dialysis related to anxiety asleep in bed taking nap, awakes to name, calm, no sob, wants fluid in abd tapped, cont skin itching, easily anxious but also easily redirectable. resting comfortably gen- alert, awake,appears stated age cv- reg rate and rhythm, no jvd lungs- ctabl, normal resp effort on o2 nc neuro- AAOx persona, place, situation Volume overload in setting of ESRD with HD non compliance, improving- HD/UF as per nephro, IR consult to see if able to drain small pleural effusion seen on review of CXR Cirrhosis, NOT decompensated, w routine outpt therapeutic paracenteses- IR consult to assess if able to drain ascites seen on review of abd US Anxiety- appreciate psych eval and recs,cont effexor and prozac at current doses, will need adjustments outpt after dc in upcoming weeks, cont home low dose vistaril prn, if not controlling breakthrough anxiety will consider low dose clonazepam Skin itching- has known liver cirrhotic changes however hepatic panel is normal and he has no jaundice, this may be related to taking morphine + norco at home and not completing full HD sessions, there is no evidence of infestation on exam- prn vistaril, cont to monitor <Luc Sheppard - Last Filed: 02/16/19 15:23> Hospitalist Progress Note - Encounter Date of Encounter: 02/16/19 Time of Encounter: 08:01 - Subjective Interval History: Mr. Esquivel was laying in bed, fully clothed today, watching [employer] [place]. Says that he is still feeling nervous and that he feels like he has an "inner t ube wrapped around me". Says that his breathing has been difficult due to the abdominal pressure and was asking about having his "fluid pulled off" and that he has this done quite frequently. He denies any active chest pain, headaches, diarrhea, cough. Admits to some abdominal tenderness during palpation. - Exam Vitals: Temp Pulse Resp BP Pulse Ox 97.8 F 99 16 146/72 100 02/16/19 07:09 02/16/19 07:09 02/16/19 07:09 02/16/19 07:09 02/16/19 07:09 Exam: Gen: Awake and alert, NAD CVS: 2/6 systolic murmur on aortic listening post that could be indicative of aortic stenosis, no edema, no jvd, S1, S2, RRR. Lungs: Diminished breath sounds B/L on anterior and posterior listening posts, some faint crackles are appreciated posteriorly on the left lower lobe, symmetric expansion of chest wall, not tachypneic Abdominal: tenderness to palpation diffusely, soft, bowel sounds present Extremities: Bruising present B/L on UE and LE with IV line in place right arm. Radial and Dorsal pedal pulses present B/L 2+ Psych: anxious, understood care plan - Assessment and Plan (1) Anxiety disorder, unspecified Current Visit: Yes Status: Acute Assessment and Plan: Patients current fluid overload status is secondary to early termination/missing dialysis sessions tertiary to increasing anxiety during dialysis Patient reports that he has always been "high strung" particularly with dialysis Psychiatry has been consulted and seen pt while in HD Patient is on multiple home anxiety medications that if abruptly d/c can cause anxiety; suspect that some of these episodes can be attributed to medication noncompliance/withdrawal It is difficult to determine if pt is compliant with medications given his inability to provide any information about them We appreciate psych input and will follow their recommendations: restart effexor XR at 75mg and start prozac 20mg PO daily; pt will have to follow up outpatient to continue tapering of effexor Keep haldol PRN for HD; pt states that this doesn't help him but while on it he has been able to complete his HD sessions If anxiety worsens, we will add low dose clonazepam 3x a day PRN (2) Anasarca associated with disorder of kidney Current Visit: Yes Status: Acute Assessment and Plan: Patient w/ hx of ESRD on MWF dialysis, cirrhosis, CAD, and medical noncompliance presented to ED c/o SOB in setting of missing dialysis session and cutting other dialysis sessions short. Dialysis sessions being cut short due to SOB & anxiety during session Haldol ordered for dialysis Similar admission for SOB/fluid overload earlier this month SCr 5.07 02/16 Nephrology consulted and seen pt Pt has been increasing anxious and complaining of having an "inner tube wrapped around me" feeling starting 02/15. Due to cirrhosis pt does have frequent paracentesis done outpatient. We obtained a repeat CXR and abdominal US 02/15 which showed small right sided pleural effusion and small, moderate ascites within the RUQ/RLQ. IR consulted 02/16; possible intervention for fluid removal. Appreciate them taking our consult Will defer renal management to nephro; appreciate their input Pt was seen by IR 02/16-- decided against intervention due to minimal fluid amount (3) ESRD (end stage renal disease) Current Visit: Yes Status: Acute Assessment and Plan: See above (4) Elevated troponin Current Visit: Yes Status: Acute Assessment and Plan: Elevated troponin on admission. Suspect chronically elevated in the setting of end-stage renal disease. 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 ECHO performed 02/16 showed EF 45-50% Continue toprol - Time Spent with Patient Total time spent is greater than 50% in coordination of care (as documented) at patient's floor/unit and/or counseling patient: Internal Medicine: Result - Labs CBC & Chem 7: 02/16/19 01:35 02/16/19 01:35 Labs: Short CBC 02/16/19 Range/Units 01:35 WBC 4.0 L (4.3-11.1) K/mcL Hgb 9.4 L (12.9-16.9) g/dL Hct 30.9 L (37.5-50.1) % Plt Count 48 L (140-400) K/mcL BMP 02/16/19 01:35 Sodium 138 Potassium 4.1 Chloride 97 L Carbon Dioxide 33 H BUN 20 Creatinine 5.07 H Glucose 95 Calcium 7.3 L - ABG Interpretation ABG results: PT/INR, D-dimer PT 16.5 Seconds (9.4-12.1) H 02/13/19 13:22 - Impressions Impressions Chest X-Ray 02/15/19 17:06 IMPRESSION: Partially loculated small right pleural effusion with right basilar atelectasis. No significant change since prior exam. D/ / Trenton Ann MD / Trenton Ann MD Interpreting Provider: Trenton Ann MD Abdomen Ultrasound 02/15/19 21:54 IMPRESSION: Small moderate ascites is identified within the right upper quadrant right lower quadrant. D/ / Rad Russo MD / Rad Russo MD Interpreting Provider: Rad Russo MD <Jacqueline Treviño - Last Filed: 02/16/19 12:15> (1) Fluid overload Qualifiers: Hypervolemia type: other Qualified Code(s): E87.79 - Other fluid overload (5) CAD (coronary artery disease) Qualifiers: Coronary Disease-Associated Artery/Lesion type: [place] artery [place] vs. [place] heart: [place] heart Associated angina: without angina Qualified Code(s): I25.10 - Atherosclerotic heart disease of [place] coronary artery without angina pectoris <Luc Sheppard - Last Filed: 02/16/19 15:23> (1) Anxiety disorder, unspecified Qualifiers: Anxiety disorder type: unspecified anxiety disorder Qualified Code(s): F41.9 - Anxiety disorder, unspecified (5) CAD (coronary artery disease) Qualifiers: Coronary Disease-Associated Artery/Lesion type: [place] artery [place] vs. transplanted heart: [place] heart Associated angina: without angina Qualified Code(s): I25.10 - Atherosclerotic heart disease of [place] coronary artery without angina pectoris
[2019-02-16] MEDS: Calcium Acetate 667 MG CAPSULE PO SCH ×3 (10:30→17:42)
[2019-02-16] MEDS: Metoprolol XL (24 HR) Succ 25 MG TAB.ER.24H PO SCH (10:31)
[2019-02-16] MEDS: Venlafaxine XR (24 HR) 75 MG CAP.ER.24H PO SCH (10:31)
[2019-02-16] MEDS: FLUoxetine 20 MG CAPSULE PO SCH (10:31)
[2019-02-16 10:40] LABS: INR 1.4
--- NOTE | 2019-02-16 13:42 | Nephrology Progress Note ---
Date of Encounter: 02/16/19 Time of Encounter: 13:40 - Assessment and Plan (1) ESRD (end stage renal disease) Current Visit: Yes Status: Acute Current regimen is MWF at [facility]. Plan for HD tomorrow. Renal diet Renal vitamins Strict I/O Avoid nephrotoxins and renal dose all medications. (2) CAD (coronary artery disease) Current Visit: Yes Status: Acute Per primary. Qualifiers: Coronary Disease-Associated Artery/Lesion type: [place] artery [place] vs. transplanted heart: [place] heart Associated angina: without angina Qualified Code(s): I25.10 - Atherosclerotic heart disease of [place] coronary artery without angina pectoris (3) CHF (congestive heart failure) Current Visit: Yes Status: Chronic 1.5 Liter fluid restriction. Qualifiers: Heart failure type: unspecified Heart failure chronicity: acute Qualified Code(s): I50.9 - Heart failure, unspecified (4) Anasarca associated with disorder of kidney Current Visit: Yes Status: Acute Will monitor. Will offer additional UF/HD until euvolemic. (5) Anxiety Current Visit: Yes Status: Chronic Pt more anxious than normal, he is well known to the practice. Continue current medications, pt appears more relaxed. Subjective Principal diagnosis: difficulty in breathing Interval history: Pt seen and examined, is resting with eyes closed. Due to recent anxiety and agitation, will not awaken at this time. Spoke with JARAD Lovelace at bedside. Objective - Vital Signs Vital signs: Vital Signs Temp Pulse Resp BP Pulse Ox 02/16/19 11:25 98.0 F 71 16 111/74 93 02/16/19 07:09 97.8 F 99 16 146/72 100 02/16/19 03:42 97.9 F 98 17 122/70 96 02/15/19 23:07 98.2 F 94 17 122/68 100 02/15/19 20:33 99 02/15/19 18:46 98.1 F 72 17 107/65 99 02/15/19 16:44 98.0 F 73 17 128/67 100 Intake and Output 02/15/19 02/16/19 02/16/19 23:59 07:59 15:59 Other: Stool Size Moderate Stool Consistency formed Stool Characteristics Normal for Patient Stool Color Brown # Voids 1 # Bowel Movements 1 Weight 87.8 kg Blood Glucose* 125 146 106 - General Appearance General appearance: Present: well-developed, well-nourished EENT: Present: ATNC, hearing intact, vision intact Neck: Present: supple Respiratory: Present: clear Cardiology: Present: no edema, normal S1, normal S2 Dialysis Vascular Access: Arteriovenous Fistula thrill: Yes bruit: Yes Gastrointestinal: Present: normoactive bowel sounds, no tenderness, no guarding Integumentary: Present: no rash, warm and dry Neurologic: Present: alert and oriented x3 Musculoskeletal: Present: no deformities, no erythema Additional Comments: At times anxious. - Lab 02/16/19 01:35 02/16/19 01:35 Most recent lab results 02/16/19 01:35 Calcium 7.3 L Consult Discharge Plan - Plan Referrals: NONE,PCP [Primary Care Provider] -
--- NOTE | 2019-02-16 13:54 | IR Progress Note ---
Vital Signs: Vital Signs/O2 Sat, Most Current Temp Pulse Resp BP Pulse Ox 98.0 F 71 16 111/74 93 02/16/19 11:25 02/16/19 11:25 02/16/19 11:25 02/16/19 11:25 02/16/19 11:25 Recent Labs: Lab Results 02/16/19 02/16/19 02/15/19 01:35 01:35 01:15 WBC 4.0 L RBC 3.21 L Hgb 9.4 L Hct 30.9 L MCV 96.3 MCH 29.3 MCHC 30.4 L RDW 16.8 H Plt Count 48 L MPV 10.3 Neutrophils # Lymphocytes # Monocytes # Eosinophils # Basophils # Sodium 138 137 Potassium 4.1 4.1 Chloride 97 L 95 L Carbon Dioxide 33 H 33 H BUN 20 22 Creatinine 5.07 H 5.22 H Est GFR ( Amer) 14 L 13 L Est GFR (Non-Af Amer) 11 L 11 L BUN/Creatinine Ratio 4 L 4 L Glucose 95 86 Calcium 7.3 L 7.4 L 02/15/19 02/14/19 02/14/19 01:15 06:14 06:14 WBC 5.9 D 3.7 L RBC 3.64 L 3.35 L Hgb 10.7 L 9.7 L Hct 34.8 L 31.7 L MCV 95.6 94.6 MCH 29.4 29.0 MCHC 30.7 L 30.6 L RDW 17.0 H 16.9 H Plt Count 59 L 42 L MPV 10.8 11.9 Neutrophils # 3.7 Lymphocytes # 1.4 Monocytes # 0.6 Eosinophils # 0.2 Basophils # 0.0 Sodium 135 L Potassium 5.4 H D Chloride 96 L Carbon Dioxide 26 BUN 29 H Creatinine 7.27 H Est GFR ( Amer) 9 L Est GFR (Non-Af Amer) 7 L BUN/Creatinine Ratio 4 L Glucose 155 H Calcium 7.3 L 02/13/19 13:22 WBC RBC Hgb Hct MCV MCH MCHC RDW Plt Count MPV Neutrophils # Lymphocytes # Monocytes # Eosinophils # Basophils # Sodium 137 Potassium 4.1 Chloride 96 L Carbon Dioxide 33 H BUN 18 Creatinine 6.06 H Est GFR ( Amer) 11 L Est GFR (Non-Af Amer) 9 L BUN/Creatinine Ratio 3 L Glucose 86 Calcium 7.5 L Assessment and Plan Patient evaluated for possible thoracentesis/paracentesis. Ultrasound of the chest and abdomen performed. Only small pleural effusions and abdominal ascites present. Therefore, no procedure was performed. Shaan Lopez MD
--- NOTE | 2019-02-16 15:45 | Electrocardiograph Report ---
[address] [address] Test Date: 2019-02-15 Pat Name: Ike Esquivel Department: 112 Room: 2A Gender: M [employer] Consultant: : [id number] Requested By: Anurag Conley Order Number: [id number] Reading MD: Martin Elder Measurements Intervals [place] Rate: 104 P: 39 [place]: 148 QRS: 0 QRSD: 108 T: 191 QT: 356 QTc: 416 Interpretive Statements Probably sinus tachycardia ST DEVIATION AND MODERATE T-WAVE ABNORMALITY, CONSIDER ANTEROLATERAL ISCHEMIA Electronically Signed On 02-16-2019 15:43:50 EDT by Martin Elder
[2019-02-16] MEDS: traZODone 50 MG TABLET PO PRN (20:11)
[2019-02-17 04:05] LABS: Hematocrit 32.7 % (37.5-50.1)
[2019-02-17 04:07] LABS: Hemoglobin 9.8 g/dL (12.9-16.9); Mean Corpuscular Volume 96.7 fL (83.0-100.0); Mean Platelet Volume 10.1 fL (9.4-12.4); Red Blood Count 3.38 M/mcL (4.19-5.50); Red Cell Distribution Width 16.5 % (11.5-14.5); White Blood Count 3.7 K/mcL (4.3-11.1)
[2019-02-17 04:24] LABS: Calcium 7.4 mg/dL (8.6-10.3); Potassium 4.3 mEq/L (3.5-5.1)
[2019-02-17] MEDS ORDERED: 0.9 % Sodium Chloride 250 ML IVC PRN (07:49)
[2019-02-17] MEDS ORDERED: *HR* Heparin 10,000 UNIT/10 ML VIAL IV PRN (07:49)
[2019-02-17] MEDS: FLUoxetine 20 MG CAPSULE PO SCH (07:58)
[2019-02-17] MEDS: Calcium Acetate 667 MG CAPSULE PO SCH ×3 (07:59→17:55)
[2019-02-17] MEDS: Venlafaxine XR (24 HR) 75 MG CAP.ER.24H PO SCH (07:59)
--- NOTE | 2019-02-17 09:06 | Internal Med Progress Note ---
<Luc Sheppard - Last Filed: 02/17/19 11:01> Hospitalist Progress Note - Encounter Date of Encounter: 02/17/19 Time of Encounter: 08:59 - Subjective Interval History: Pt was lying in bed resting comfortably about to be moved to HD when I arrived. He denies any CP, sob, headaches, vision changes, pain with breathing. Does admi t to abdominal pain with palpation that is unchanged from previous exams. He admits to back pain and mentions something being done to his back in the past that "kept me from getting pneumonia" but he was unable to clarify exactly what said device was. No acute events overnight. States that he is doing "fair". - Exam Vitals: Temp Pulse Resp BP Pulse Ox 97.9 F 73 17 150/74 98 02/17/19 07:18 02/17/19 07:18 02/17/19 07:18 02/17/19 07:18 02/17/19 08:09 Exam: Gen: Awake and alert, NAD CVS: 2/6 systolic murmur on aortic listening post that could be indicative of aortic stenosis, no edema, no jvd, S1, S2, RRR. Lungs: Diminished breath sounds B/L on anterior and posterior listening posts, some faint crackles are appreciated posteriorly on the left lower lobe, symmetric expansion of chest wall, not tachypneic Abdominal: tenderness to palpation diffusely, soft, bowel sounds present Extremities: Bruising present B/L on UE and LE with IV line in place right arm. Radial and Dorsal pedal pulses present B/L 2+ Psych: much more relaxed than when I have previously examined him, understood the care plan, had no questions for me - Assessment and Plan (1) Anxiety disorder, unspecified Current Visit: Yes Status: Acute Assessment and Plan: Patients current fluid overload status is secondary to early termination/missing dialysis sessions tertiary to increasing anxiety during dialysis Patient reports that he has always been "high strung" particularly with dialysis Psychiatry has been consulted and seen pt while in HD Patient is on multiple home anxiety medications that if abruptly d/c can cause anxiety; suspect that some of these episodes can be attributed to medication noncompliance/withdrawal It is difficult to determine if pt is compliant with medications given his inability to provide any information about them We appreciate psych input and will follow their recommendations: restart effexor XR at 75mg and start prozac 20mg PO daily; pt will have to follow up outpatient to continue tapering of effexor Keep haldol PRN for HD; pt states that this doesn't help him but while on it he has been able to complete his HD sessions Seems to be the calmest I've seen him 02/17 Pt has been complaining of pruiritis, stating he wants to "scratch my skin off". We suspect this is secondary to hydroxyzine. We will dc this and start low dose clonazepam 0.5mg TIDPRN starting 02/17. (2) Anasarca associated with disorder of kidney Current Visit: Yes Status: Acute Assessment and Plan: Patient w/ hx of ESRD on MWF dialysis, cirrhosis, CAD, and medical noncompliance presented to ED c/o SOB in setting of missing dialysis session and cutting other dialysis sessions short. Dialysis sessions being cut short due to SOB & anxiety during session Haldol ordered for dialysis Similar admission for SOB/fluid overload earlier this month Nephrology consulted and seen pt Pt has been increasing anxious and complaining of having an "inner tube wrapped around me" feeling starting 02/15. Due to cirrhosis pt does have frequent paracentesis done outpatient. We obtained a repeat CXR and abdominal US 02/15 which showed small right sided pleural effusion and small, moderate ascites within the RUQ/RLQ. IR consulted 02/16; possible intervention for fluid removal. Appreciate them taking our consult Will defer renal management to nephro; appreciate their input Pt was seen by IR 02/16-- decided against intervention due to minimal fluid amount Receiving HD 02/17-- if pt can tolerate HD and continues to clinically improve may discuss dc in near future (3) ESRD (end stage renal disease) Current Visit: Yes Status: Acute Assessment and Plan: see above (4) Elevated troponin Current Visit: Yes Status: Acute Assessment and Plan: Elevated troponin on admission. Suspect chronically elevated in the setting of end-stage renal disease. 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 ECHO performed 02/16 showed EF 45-50% Continue toprol - Time Spent with Patient Total time spent is greater than 50% in coordination of care (as documented) at patient's floor/unit and/or counseling patient: Internal Medicine: Result - Labs CBC & Chem 7: 02/17/19 03:56 02/17/19 03:56 Labs: Short CBC 02/17/19 Range/Units 03:56 WBC 3.7 L (4.3-11.1) K/mcL Hgb 9.8 L (12.9-16.9) g/dL Hct 32.7 L (37.5-50.1) % Plt Count 43 L (140-400) K/mcL BMP 02/17/19 03:56 Sodium 137 Potassium 4.3 Chloride 98 Carbon Dioxide 31 H BUN 29 H Creatinine 6.54 H Glucose 97 Calcium 7.4 L - ABG Interpretation ABG results: PT/INR, D-dimer PT 16.0 Seconds (9.4-12.1) H 02/16/19 10:06 - Impressions Impressions Abdomen/Pelvis/Transvag US 02/16/19 15:44 IMPRESSION: 1. Small bilateral pleural effusions, with insufficient fluid for a therapeutic thoracentesis. 2. Small perihepatic ascites, with insufficient fluid for a therapeutic paracentesis. D/ / Shaan Lopez MD / Shaan Lopez MD Interpreting Provider: Shaan Lopez MD Abdomen/Pelvis/Transvag US 02/16/19 15:44 IMPRESSION: 1. Small bilateral pleural effusions, with insufficient fluid for a therapeutic thoracentesis. 2. Small perihepatic ascites, with insufficient fluid for a therapeutic paracentesis. D/ / Shaan Lopez MD / Shaan Lopez MD Interpreting Provider: Shaan Lopez MD Chest Ultrasound 02/16/19 15:44 IMPRESSION: 1. Small bilateral pleural effusions, with insufficient fluid for a therapeutic thoracentesis. 2. Small perihepatic ascites, with insufficient fluid for a therapeutic paracentesis. D/ / Shaan Lopez MD / Shaan Lopez MD Interpreting Provider: Shaan Lopez MD Consult Discharge Plan - Plan Referrals: NONE,PCP [Primary Care Provider] - <HudsonJacqueline - Last Filed: 02/17/19 16:12> Hospitalist Progress Note - Encounter Date of Encounter: 02/17/19 - Exam Vitals: Temp Pulse Resp BP Pulse Ox 97.6 F 73 18 125/72 98 02/17/19 12:30 02/17/19 07:18 02/17/19 12:30 02/17/19 12:30 02/17/19 08:09 - Assessment and Plan (1) Fluid overload Current Visit: Yes Status: Acute (2) Anasarca associated with disorder of kidney Current Visit: Yes Status: Acute (3) ESRD (end stage renal disease) Current Visit: Yes Status: Acute (4) Elevated troponin Current Visit: Yes Status: Acute (5) CAD (coronary artery disease) Current Visit: Yes Status: Acute (6) Anxiety Current Visit: Yes Status: Chronic - Time Spent with Patient Total time spent is greater than 50% in coordination of care (as documented) at patient's floor/unit and/or counseling patient: Internal Medicine: Result - Labs CBC & Chem 7: 02/17/19 03:56 02/17/19 03:56 Labs: Short CBC 02/17/19 Range/Units 03:56 WBC 3.7 L (4.3-11.1) K/mcL Hgb 9.8 L (12.9-16.9) g/dL Hct 32.7 L (37.5-50.1) % Plt Count 43 L (140-400) K/mcL BMP 02/17/19 03:56 Sodium 137 Potassium 4.3 Chloride 98 Carbon Dioxide 31 H BUN 29 H Creatinine 6.54 H Glucose 97 Calcium 7.4 L - ABG Interpretation ABG results: PT/INR, D-dimer PT 16.0 Seconds (9.4-12.1) H 02/16/19 10:06 - Impressions Impressions Abdomen/Pelvis/Transvag US 02/16/19 15:44 IMPRESSION: 1. Small bilateral pleural effusions, with insufficient fluid for a therapeutic thoracentesis. 2. Small perihepatic ascites, with insufficient fluid for a therapeutic paracentesis. D/ / Shaan Lopez MD / Shaan Lopez MD Interpreting Provider: Shaan Lopez MD Abdomen/Pelvis/Transvag US 02/16/19 15:44 IMPRESSION: 1. Small bilateral pleural effusions, with insufficient fluid for a therapeutic thoracentesis. 2. Small perihepatic ascites, with insufficient fluid for a therapeutic paracentesis. D/ / Shaan Lopze MD / Shaan Lopez MD Interpreting Provider: Shaan Lopez MD Chest Ultrasound 02/16/19 15:44 IMPRESSION: 1. Small bilateral pleural effusions, with insufficient fluid for a therapeutic thoracentesis. 2. Small perihepatic ascites, with insufficient fluid for a therapeutic paracentesis. D/ / Shaan Lopez MD / Shaan Lopez MD Interpreting Provider: Shaan Lopez MD - Attending Attestation The history, physical exam, and medical decision making was performed by the medical student either while I was physically present and actively involved or I personally re-performed the exam and medical decision making. I have verified the accuracy of the medical student's documentation with regards to the history, physical exam findings, and medical decision making. Mr Esquivel is being observed for volume overload due to noncompliance with dialysis related to anxiety in HD, resting calmly but then stating he is crawling in his skin and needs something. Asks to be knocked out. He knows this is not appropriate. Discussed med change including to Klonopin and risk v benefit of medication. He would like to try it. He is redirectable and calmly resting at end of interview. gen- alert, awake,appears stated age cv- reg rate and rhythm, no le edema lungs- ctabl, normal resp effort on o2 nc neuro- AAOx persona, place, situation Volume overload in setting of ESRD with HD non compliance,resolving- HD/UF as per nephro, no sig pleural effusion or ascites this admission for drainage, hopeful he will make it through a HD session with med changes and we can move toward dc Cirrhosis, NOT decompensated- fu outpt Anxiety- appreciate psych eval and recs,cont effexor and prozac at current doses, will need adjustments outpt after dc in upcoming weeks, I worry vistaril is causing akathisia, will trial low dose prn clonazepam for breakthrough anxiety while he awaits effects from med changes (which will take weeks), risk v benefit of med d/w pt and he would like to try it dispo will be to home with [facility] as he is out of SNF days, hopeful for dc in next 24 hrs <Luc Sheppard R - Last Filed: 02/17/19 11:01> (1) Anxiety disorder, unspecified Qualifiers: Anxiety disorder type: unspecified anxiety disorder Qualified Code(s): F41.9 - Anxiety disorder, unspecified (5) CAD (coronary artery disease) Qualifiers: Coronary Disease-Associated Artery/Lesion type: [place] artery [place] vs. transplanted heart: [place] heart Associated angina: without angina Qualified Code(s): I25.10 - Atherosclerotic heart disease of [place] coronary artery without angina pectoris <Jacuqeline Treviño M - Last Filed: 02/17/19 16:12> (1) Fluid overload Qualifiers: Hypervolemia type: other Qualified Code(s): E87.79 - Other fluid overload (5) CAD (coronary artery disease) Qualifiers: Coronary Disease-Associated Artery/Lesion type: [place] artery [place] vs. transplanted heart: [place] heart Associated angina: without angina Qualified Code(s): I25.10 - Atherosclerotic heart disease of [place] coronary artery without angina pectoris
--- NOTE | 2019-02-17 10:42 | Nephrology Progress Note ---
Date of Encounter: 02/17/19 Time of Encounter: 10:40 - Assessment and Plan (1) ESRD (end stage renal disease) Current Visit: Yes Status: Acute Current regimen is MWF at [facility]. HD in progress, tolerating well. Renal diet Renal vitamins Strict I/O Avoid nephrotoxins and renal dose all medications. (2) CAD (coronary artery disease) Current Visit: Yes Status: Acute Per primary. Qualifiers: Coronary Disease-Associated Artery/Lesion type: [place] artery [place] vs. transplanted heart: [place] heart Associated angina: without angina Qualified Code(s): I25.10 - Atherosclerotic heart disease of [place] coronary artery without angina pectoris (3) CHF (congestive heart failure) Current Visit: Yes Status: Chronic 1.5 Liter fluid restriction. Qualifiers: Heart failure type: unspecified Heart failure chronicity: acute Qualified Code(s): I50.9 - Heart failure, unspecified (4) Anasarca associated with disorder of kidney Current Visit: Yes Status: Acute Will monitor. Will offer additional UF/HD until euvolemic. (5) Anxiety Current Visit: Yes Status: Chronic Pt more anxious than normal, he is well known to the practice. Continue current medications, pt appears more relaxed and tolerated HD better today. Subjective Principal diagnosis: difficulty in breathing Interval history: Pt seen and examined during HD, doing much better. Denies chest pain or shortness of breath. Denies nausea, vomiting, diarrhea. Denies feeling agitated at this time. Admits to feeling anxious, but appears much better than last time he was on HD. Objective - Vital Signs Vital signs: Vital Signs Temp Pulse Resp BP Pulse Ox 02/17/19 08:09 98 02/17/19 07:18 97.9 F 73 17 150/74 98 02/17/19 05:31 98 F 73 16 114/70 93 02/16/19 19:55 100 02/16/19 18:57 98.4 F 99 19 136/63 100 02/16/19 16:53 98.0 F 99 16 131/78 96 02/16/19 11:25 98.0 F 71 16 111/74 93 Intake and Output 02/16/19 02/17/19 02/17/19 23:59 07:59 15:59 Intake Total 240 / 240 Balance 240 / 240 Intake: Oral 240 / 240 Other: Stool Size Small Stool Consistency loose soft Stool Color Brown Blood Glucose* 116 90 - General Appearance General appearance: Present: chronically ill EENT: Present: ATNC, hearing intact, vision intact Neck: Present: supple Respiratory: Present: clear Cardiology: Present: no edema, normal S1, normal S2 Dialysis Vascular Access: Arteriovenous Fistula thrill: Yes bruit: Yes Gastrointestinal: Present: normoactive bowel sounds, no tenderness, no guarding Integumentary: Present: no rash, warm and dry Neurologic: Present: alert and oriented x3 Musculoskeletal: Present: no deformities, no erythema Psychiatric: Present: mood/affect appropriate, cooperative - Lab 02/17/19 03:56 02/17/19 03:56 Most recent lab results 02/17/19 03:56 Calcium 7.4 L Consult Discharge Plan - Plan Referrals: NONE,PCP [Primary Care Provider] -
[2019-02-17] MEDS: Metoprolol XL (24 HR) Succ 25 MG TAB.ER.24H PO SCH (12:45)
[2019-02-17] MEDS: *HR* OxyCODONE Immed Rel 5 MG TABLET PO PRN ×2 (15:09→21:51)
[2019-02-17] MEDS: clonazePAM 0.5 MG TABLET PO PRN ×3 (16:15→23:02)
[2019-02-17] MEDS: traZODone 50 MG TABLET PO PRN (20:49)
[2019-02-17] MEDS ORDERED: Melatonin 3 MG TABLET PO ONE (22:46)
[2019-02-18 05:55] LABS: Hematocrit 34.3 % (37.5-50.1); Hemoglobin 10.3 g/dL (12.9-16.9); Immature Platelets 7.2 % (1.1-6.1); Mean Corpuscular Hemoglobin 29.3 pg (28.0-33.3); Mean Corpuscular Volume 97.4 fL (83.0-100.0); Mean Platelet Volume 10.5 fL (9.4-12.4); Red Blood Count 3.52 M/mcL (4.19-5.50); Red Cell Distribution Width 16.5 % (11.5-14.5); White Blood Count 4.6 K/mcL (4.3-11.1)
[2019-02-18 06:09] LABS: Potassium 4.4 mEq/L (3.5-5.1)
--- NOTE | 2019-02-18 07:33 | Discharge Summary ---
- NOTES TO OUTPATIENT PROVIDER Notes to Outpatient Provider: Admitted for anxiety impairing his ability to complete dialysis sessions. Psychiatry evaluated and medication changes initiated. Effexor decreased and will require taper. Prozac started and will require up titration. 2 week rx for Klonopin (low dose bid prn) was given for br eakthrough anxiety for in the next two weeks while med changes take effect. Psych rec for outpt is: In 1-2 weeks, discontinue effexor completely and increase prozac to 40mg. If patient is unable to tolerate side effects from weaning of effexor, can decrease dose by 37.5mg instead and cont to taper from there. He needs to follow up w established Nephrology and should also see his [facility] for routine follow up as well. Outpt psychiatry referral as needed. Date of Encounter: 02/18/19 Time of Encounter: 10:00 - Discharge Diagnosis (1) Anxiety Priority: Primary Status: Acute (2) Fluid overload Priority: Secondary Status: Chronic Qualifiers: Hypervolemia type: other Qualified Code(s): E87.79 - Other fluid overload (3) ESRD (end stage renal disease) Priority: Secondary Status: Chronic (4) Elevated troponin Priority: Secondary Status: Chronic (5) CAD (coronary artery disease) Priority: Secondary Status: Chronic Qualifiers: Coronary Disease-Associated Artery/Lesion type: [place] artery [place] vs. transplanted heart: [place] heart Associated angina: without angina Qualified Code(s): I25.10 - Atherosclerotic heart disease of [place] coronary artery without angina pectoris Hospital course: Mr. Esquivel is a 78 year old male end-stage renal disease on dialysis Wednesday, cirrhosis, CAD, and medical noncompliance who presented with shortness of breath 2/2 fluid overload 2/2 not being able to tolerate full HD sessions outpt due to severe anxiety. He has had many social stressors including his being hospitalized recently and hhim being in a SNF as per report. He was now back at home as he is out of SNF days and had been refusing HHC. His Nephro team from [facility] sent him in for improved anxiety control so he could tolerate sessions. He was seen by psychiatry who recommended tapering off of Effexor and beginning Prozac. They gave recs for further dose adjustments in 2 weeks outpt. He was continued on his home Vistaril prn for breakthrough anxiety, however he demonstrated signs and sxs of akathisia. This med was stopped and he was trialled on very low dose prn Klonopin with good effect. He is now able to tolerate HD sessions. His chronic med conditions remained stable throughout admit. He is discharging back to home and SW discussed with him and he is agreeable to trying [facility] which is in place. His follow up will be two days from dc (Wednesday) at his HD outpt unit. Attempted to coordinate outpt care with his family but not able to reach his . Message left for her to call unit to discuss all dc instructions. Discharge discussed with: patient, family, nurse, case management - Time Spent with Patient Time spent: Greater than 30 minutes (40 min) - Discharge Medications Prescriptions: New Venlafaxine XR (24 HR) [Effexor XR] 75 mg PO DAILY #14 cap.er.24h clonazePAM [Klonopin] 0.25 mg PO BID PRN 14 Days #7 tablet PRN Reason: Anxiety FLUoxetine HCl [Prozac] 20 mg PO DAILY 14 Days #14 capsule Continued Trazodone HCl 100 mg PO HS PRN PRN Reason: Sleep Calcium Acetate [Phos-LO] 1,334 mg PO TIDWM Nitroglycerin [Nitrostat] 0.4 mg SL Q5M PRN PRN Reason: Chest Pain Aspirin [Lo-Dose Aspirin EC] 81 mg PO DAILY Ondansetron ODT [Zofran ODT] 4 mg SL Q6HR PRN PRN Reason: Nausea Atorvastatin Calcium 80 mg PO DAILY Acetaminophen [Tylenol] 650 mg PO Q6HR PRN PRN Reason: Pain Ipratropium/Albuterol Sulfate [Iprat-Albut 0.5-3(2.5) mg/3 ml] 3 ml IH Q6H PRN PRN Reason: Shortness Of Breath Metoprolol Succinate [Toprol Xl] 25 mg PO DAILY Gabapentin [Neurontin] 100 mg PO TID #30 capsule HYDROcodone/Acet 5/325 mg [[place] 5-325 mg] 1 tab PO Q6H PRN PRN Reason: Mild To Moderate Pain Calcitriol [Rocaltrol] 0.5 mcg PO DAILY #30 capsule Morphine Oral CONC [Roxanol] 0.25 ml PO Q4H PRN PRN Reason: Pain Discontinued Venlafaxine XR (24 HR) [Effexor Xr] 150 mg PO DAILY LORazepam [Ativan] 0.5 mg PO BID HydrOXYzine [Atarax] 10 mg PO QID 30 Days #120 tablet Home Medications: Trazodone HCl 100 mg PO HS PRN 01/31/18 [History] Calcium Acetate [Phos-LO] 1,334 mg PO TIDWM 07/03/18 [History] Nitroglycerin [Nitrostat] 0.4 mg SL Q5M PRN 07/04/18 [History] Aspirin [Lo-Dose Aspirin EC] 81 mg PO DAILY 08/23/18 [History] Ondansetron ODT [Zofran ODT] 4 mg SL Q6HR PRN 11/09/18 [History] Atorvastatin Calcium 80 mg PO DAILY 11/18/18 [History] Acetaminophen [Tylenol] 650 mg PO Q6HR PRN 12/09/18 [History] Ipratropium/Albuterol Sulfate [Iprat-Albut 0.5-3(2.5) mg/3 ml] 3 ml IH Q6H PRN 12/09/18 [History] Metoprolol Succinate [Toprol Xl] 25 mg PO DAILY 12/09/18 [History] Gabapentin [Neurontin] 100 mg PO TID #30 capsule 12/10/18 [Rx] HYDROcodone/Acet 5/325 mg [[place] 5-325 mg] 1 tab PO Q6H PRN 02/10/19 [History] Calcitriol [Rocaltrol] 0.5 mcg PO DAILY #30 capsule 02/11/19 [Rx] Morphine Oral CONC [Roxanol] 0.25 ml PO Q4H PRN 02/13/19 [History] FLUoxetine HCl [Prozac] 20 mg PO DAILY 14 Days #14 capsule 02/18/19 [Rx] Venlafaxine XR (24 HR) [Effexor XR] 75 mg PO DAILY #14 cap.er.24h 02/18/19 [Rx] clonazePAM [Klonopin] 0.25 mg PO BID PRN 14 Days #7 tablet 02/18/19 [Rx] Allergies/Adverse Reactions: Allergy/AdvReac Type Severity Reaction Status Date / Time No Known Allergies Allergy Verified 11/09/18 07:04 Date of admission: 02/15/19 15:16 Primary care physician: PCP NONE Consults: 02/13/19 15:38 Consult to Nephrology [CONS] Routine Consulting Provider: Kidney Faye/AGUSTINA/TRAN/SHRADDHA Reason for Consult: HD patient missed HD sessions Call Completed: Yes 02/14/19 10:15 Consult to Dialysis [CONS] ONCE 02/14/19 11:44 Consult to Psychiatry [CONS] Routine Consulting Provider: Psychiatry Faye Reason consult: Other Other reason and/or additional details: anxiety/depression 02/15/19 07:15 Consult to Dialysis [CONS] ONCE 02/16/19 09:50 Consult to Interventional Radiology [CONS] Routine Consulting Provider: Radiology Interventional Cols Reason for Consult: Patient with history of recurrent pleural effusions, ascites, paracentesis and thoracentesis. Requesting eval for possible thoracentesis or paracentesis. Time Notified: 09:52 Call Completed: Yes 02/17/19 08:00 Consult to Dialysis [CONS] ONCE Discharging clinician: Jacqueline Treviño - Constitutional Vitals: Temp Pulse Resp BP Pulse Ox 98.2 F 67 18 121/63 100 02/18/19 06:48 02/18/19 06:48 02/18/19 06:48 02/18/19 06:48 02/18/19 06:48 Exam: Asleep taking nap, awakes to name. He has no complaints. Ate breakfast this morning. He does not feel anxious at this time, admits to feeling better than when he came in. Excited to go home. States his will be his ride and gave permission for me to update (though no answer at home). RN reported he did well this morning, took a klonopin after breakfast and took nap after med. Greatly improved anxiety level today. gen- alert, awake,appears stated age cv- reg rate and rhythm, normal s1s2, no le edema lungs- ctabl, normal resp effort on o2 nc lying flat neuro- AAOx persona, place, situation - Patient Status Disposition: Home Health Service Condition: Fair Overall status at discharge: patient is back to baseline - Discharge Instructions Instructions: Clonazepam (By mouth), Fluoxetine (By mouth), Venlafaxine (By mouth) Follow Up With: NONE,PCP [Primary Care Provider] - Korin Whitmore, ESTIMATOR LUMBER [Advanced Practice Nurse] - (Cannot web request. RN will explain to the patient to call for an apt on Wednesday. ) Forms: ED Satisfaction Letter Additional Instructions: FOLLOW UP WITH EVA DOSS AND YOUR REFINERY OPERATOR HELPER ON WEDNESDAY You are now tolerating your dialysis sessions with changes made to your anxiety medications Effexor has been reduced. Prozac has been started. These medication changes will take 2-4 weeks for full effect AND REQUIRE FURTHER CHANGES BY YOUR PCP IN 2 WEEKS. You will be weaned off Effexor and Prozac will be increased in the upcoming weeks/months. For breakthrough anxiety while these med changes take effect you are being prescirbed only a two week prescription for Klonopin. Take A HALF TAB twice a day as needed for breakthrough anxiety. Do NOT drive or operate machinery with Klonopin as it may cause drowsiness No other meds were changed. You are out of nursing home facility days as discussed with our social media senior associate. You were agreeable to Home Health Care and this is in place. SEE YOU DOCTOR IN 2 DAYS AT DIALYSIS - Diet and Activity Activity: increase activity as tolerated Diet: advance to your usual diet, low fat, low cholesterol, low salt diet, other (1.5 L daily fluid restriction, renal diet)
--- NOTE | 2019-02-18 07:34 | Physician Discharge Referral ---
Home Health/Hosp Referral Info Transfer to: Home Health Provider in Charge Post Discharge: PCP - Diagnosis (1) Anxiety Priority: Primary Status: Acute (2) Fluid overload Priority: Secondary Status: Chronic (3) Anasarca associated with disorder of kidney Priority: Secondary Status: Acute (4) ESRD (end stage renal disease) Priority: Secondary Status: Chronic (5) Elevated troponin Priority: Secondary Status: Chronic (6) CAD (coronary artery disease) Priority: Secondary Status: Chronic - Respiratory Orders Oxygen / L per min (2L continuous) Smoking Cessation: Smoking cessation has been advised. For more information, call the [place] Tobacco Quit Line at 2-477-GVPQ-NOW. - Diet/Nutrition Diet/Nutrition Orders: No Added Salt (WIN), Renal, Cardiac (1.5 L daily fluid restriction) - Activity Activity Orders: Walker - Services Needed Following services are medically necessary services: Nursing, Home Health Aide, Physical Therapy, Occupational Therapy - Transfer Medications Prescriptions: Venlafaxine XR (24 HR) [Effexor XR] 75 mg PO DAILY #14 cap.er.24h Prescription Printed clonazePAM [Klonopin] 0.25 mg PO BID PRN 14 Days #7 tablet PRN Reason: Anxiety Prescription Printed FLUoxetine HCl [Prozac] 20 mg PO DAILY 14 Days #14 capsule Prescription Printed Home Medications: Trazodone HCl 100 mg PO HS PRN 01/31/18 [History] Calcium Acetate [Phos-LO] 1,334 mg PO TIDWM 07/03/18 [History] Nitroglycerin [Nitrostat] 0.4 mg SL Q5M PRN 07/04/18 [History] Aspirin [Lo-Dose Aspirin EC] 81 mg PO DAILY 08/23/18 [History] Ondansetron ODT [Zofran ODT] 4 mg SL Q6HR PRN 11/09/18 [History] Atorvastatin Calcium 80 mg PO DAILY 11/18/18 [History] Acetaminophen [Tylenol] 650 mg PO Q6HR PRN 12/09/18 [History] Ipratropium/Albuterol Sulfate [Iprat-Albut 0.5-3(2.5) mg/3 ml] 3 ml IH Q6H PRN 12/09/18 [History] Metoprolol Succinate [Toprol Xl] 25 mg PO DAILY 12/09/18 [History] Gabapentin [Neurontin] 100 mg PO TID #30 capsule 12/10/18 [Rx] HYDROcodone/Acet 5/325 mg [[place] 5-325 mg] 1 tab PO Q6H PRN 02/10/19 [History] Calcitriol [Rocaltrol] 0.5 mcg PO DAILY #30 capsule 02/11/19 [Rx] Morphine Oral CONC [Roxanol] 0.25 ml PO Q4H PRN 02/13/19 [History] FLUoxetine HCl [Prozac] 20 mg PO DAILY 14 Days #14 capsule 02/18/19 [Rx] Venlafaxine XR (24 HR) [Effexor XR] 75 mg PO DAILY #14 cap.er.24h 02/18/19 [Rx] clonazePAM [Klonopin] 0.25 mg PO BID PRN 14 Days #7 tablet 02/18/19 [Rx] Allergies/Adverse Reactions: Allergy/AdvReac Type Severity Reaction Status Date / Time No Known Allergies Allergy Verified 11/09/18 07:04 Certification: Further, I certify that my clinical findings support that this patient is homebound (i.e. absences from home require considerable and taxing effort and are for medical reasons or anabaptist services or infrequently or short duration when for other reasons) because: Homebound Reason: Patient requires assistance of a person or device to safely leave home, Leaving home requires considerable and taxing effort due to condition Attestation: My signature below is to certify that this patient is under my care and that I, or nurse practitioner, or a physician's yard assistant working with me, has a [id number] encounter with this patient.
[2019-02-18] MEDS: Venlafaxine XR (24 HR) 75 MG CAP.ER.24H PO SCH (08:26)
[2019-02-18] MEDS: Calcium Acetate 667 MG CAPSULE PO SCH ×2 (08:26→13:09)
[2019-02-18] MEDS: Metoprolol XL (24 HR) Succ 25 MG TAB.ER.24H PO SCH (08:26)
[2019-02-18] MEDS: FLUoxetine 20 MG CAPSULE PO SCH (08:26)
[2019-02-18] MEDS: clonazePAM 0.5 MG TABLET PO PRN (08:26)
[2019-02-18] MEDS ORDERED: FLU Vac QV 19-20 (6Month+)/PF 0.5 ML SYRINGE IM ONE (10:42)
[2019-02-18 10:59] VITALS: BP 98/61
--- NOTE | 2019-02-18 14:41 | Nephrology Progress Note ---
Date of Encounter: 02/18/19 Time of Encounter: 12:00 - Assessment and Plan (1) ESRD (end stage renal disease) Status: Chronic Current regimen is MWF at [facility]. s/p HD yesterday with no complications Continue renal diet Continue renal vitamins Continue strict I/O Continue to avoid nephrotoxins and renal dose all medications. Ok to discharge from a renal standpoint (2) CAD (coronary artery disease) Status: Chronic Per primary. Qualifiers: Coronary Disease-Associated Artery/Lesion type: [place] artery [place] vs. transplanted heart: [place] heart Associated angina: without angina Qualified Code(s): I25.10 - Atherosclerotic heart disease of [place] coronary artery without angina pectoris (3) CHF (congestive heart failure) Status: Chronic 1.5 Liter fluid restriction, stable. Qualifiers: Heart failure type: unspecified Heart failure chronicity: acute Qualified Code(s): I50.9 - Heart failure, unspecified (4) Anasarca associated with disorder of kidney Status: Acute Resolved (5) Anxiety Status: Acute Continue current medications, will need psych followup outpatient Subjective Principal diagnosis: difficulty in breathing Interval history: Pt sen and examined with family at bedside. Back at baseline mental status. Tolerated HD well yesterday. Discussed medications as discharge planned today Objective - Vital Signs Vital signs: Vital Signs Temp Pulse Resp BP Pulse Ox 02/18/19 10:58 98.2 F 68 16 98/61 100 02/18/19 06:48 98.2 F 67 18 121/63 100 02/18/19 03:31 98 F 100 17 127/76 94 02/17/19 23:04 16 98 02/17/19 22:44 97.9 F 78 16 144/82 98 02/17/19 19:53 98.6 F 80 16 166/87 97 02/17/19 19:44 96 02/17/19 16:27 97.9 F 99 128/91 Intake and Output 02/17/19 02/18/19 02/18/19 23:59 07:59 15:59 Other: Weight 87.5 kg Blood Glucose* 119 90 132 Patient Weight 02/18/19 23:59 Weight 87.5 kg - General Appearance General appearance: Present: chronically ill (NAD) EENT: Present: ATNC, mucous membranes moist Neck: Present: no JVD, supple Additional Comments: good areation ant bilat Cardiology: Present: no edema, normal S1, normal S2 Dialysis Vascular Access: Arteriovenous Fistula thrill: Yes bruit: Yes - Lab 02/18/19 05:32 02/18/19 05:32 Most recent lab results 02/18/19 05:32 Calcium 8.0 L Consult Discharge Plan - Plan Instructions: Clonazepam (By mouth), Fluoxetine (By mouth), Venlafaxine (By mouth) Additional Instructions: FOLLOW UP WITH EVA DOSS AND YOUR INDUSTRIAL ECOLOGY TECHNICIAN ON WEDNESDAY You are now tolerating your dialysis sessions with changes made to your anxiety medications Effexor has been reduced. Prozac has been started. These medication changes will take 2-4 weeks for full effect AND REQUIRE FURTHER CHANGES BY YOUR PCP IN 2 WEEKS. You will be weaned off Effexor and Prozac will be increased in the upcoming weeks/months. For breakthrough anxiety while these med changes take effect you are being prescirbed only a two week prescription for Klonopin. Take A HALF TAB twice a day as needed for breakthrough anxiety. Do NOT drive or operate machinery with Klonopin as it may cause drowsiness No other meds were changed. You are out of retirement facility days as discussed with our social media analyst. You were agreeable to Home Health Care and this is in place. SEE YOU DOCTOR IN 2 DAYS AT DIALYSIS Referrals: NONE,PCP [Primary Care Provider] - Korin Whitmore, [employer] [Advanced Practice Nurse] - (Cannot web request. RN will explain to the patient to call for an apt on Wednesday. ) Prescriptions: Venlafaxine XR (24 HR) [Effexor XR] 75 mg PO DAILY #14 cap.er.24h Prescription Printed clonazePAM [Klonopin] 0.25 mg PO BID PRN 14 Days #7 tablet PRN Reason: Anxiety Prescription Printed FLUoxetine HCl [Prozac] 20 mg PO DAILY 14 Days #14 capsule Prescription Printed
== END 2019-02-18 14:15 | disposition home health service (06) | DRG 291 ==
LOC: 2ANU 12:47 → EMEROOARM 12:47 → SUATTDRO 15:07 → 2ANU 15:37
PROVIDERS: ADMIT Internal Medicine; ATTEND Internal Medicine

== ENCOUNTER 2019-03-01 11:21 | Inpatient (IN) ==
[2019-03-01 12:02] LABS: Hemoglobin 11.2 g/dL (12.9-16.9)
[2019-03-01 12:04] LABS: Basophils % 0.7 %; Eosinophils # 0.4 K/mcL (0.0-0.6); Hematocrit 35.9 % (37.5-50.1); Immature Granulocytes % 0.5 % (0-4); Immature Platelets 6.5 % (1.1-6.1); Lymphocytes # 0.8 K/mcL (0.6-4.6); Lymphocytes % 18.1 %; Mean Corpuscular HGB Conc 31.2 g/dL (31.6-35.5); Mean Corpuscular Hemoglobin 29.4 pg (28.0-33.3); Mean Corpuscular Volume 94.2 fL (83.0-100.0); Mean Platelet Volume 10.8 fL (9.4-12.4); Monocytes # 0.4 K/mcL (0.0-1.3); Monocytes % 9.8 %; Neutrophils # 2.7 K/mcL (1.6-8.9); Red Blood Count 3.81 M/mcL (4.19-5.50); Red Cell Distribution Width 16.4 % (11.5-14.5); Segmented Neutrophils % 60.9 %; White Blood Count 4.4 K/mcL (4.3-11.1)
[2019-03-01 12:07] LABS: Platelet Count 67 K/mcL (140-400)
[2019-03-01] MEDS ORDERED: *HR* Dextrose 50 % in Water (Syg) 50 ML SYRINGE IVP ONE (12:31)
[2019-03-01 12:32] LABS: Calcium 7.8 mg/dL (8.6-10.3); Potassium 4.9 mEq/L (3.5-5.1); Troponin I 0.11 ng/mL (< 0.04)
[2019-03-01] MEDS ORDERED: *HR* LORazepam 2 MG/ML VIAL IVP ONE (12:37)
[2019-03-01] MEDS ORDERED: Naloxone 0.4 MG/ML INJ IVP PRN (15:46)
[2019-03-01] MEDS ORDERED: Morphine Sulfate Oral CONC 10 MG/0.5 ML ORAL.SYG PO PRN (18:10)
[2019-03-01] MEDS ORDERED: Ipratropium/Albuterol Neb 3 ML IH PRN (18:10)
[2019-03-01] MEDS ORDERED: Nitroglycerin 0.4 MG TAB.SUBL SL PRN (18:10)
[2019-03-01] MEDS ORDERED: Ondansetron ODT 4 MG TAB.RAPDIS SL PRN (18:10)
[2019-03-01] MEDS ORDERED: Acetaminophen 325 MG TABLET PO PRN (18:10)
[2019-03-01] MEDS ORDERED: traZODone 50 MG TABLET PO PRN (18:10)
[2019-03-01] MEDS: clonazePAM 0.5 MG TABLET PO PRN (18:45)
[2019-03-01] MEDS: *HR* FentaNYL PATCH 12 MCG PATCH TD SCH (18:45)
[2019-03-01] MEDS: Gabapentin 100 MG CAPSULE PO SCH (22:03)
[2019-03-02 03:35] LABS: Calcium 7.5 mg/dL (8.6-10.3); Potassium 5.1 mEq/L (3.5-5.1)
[2019-03-02 03:38] LABS: Basophils # 0.1 K/mcL (0.0-0.2); Basophils % 1.3 %; Eosinophils # 0.7 K/mcL (0.0-0.6); Eosinophils % 16.1 %; Hematocrit 33.9 % (37.5-50.1); Hemoglobin 10.3 g/dL (12.9-16.9); Immature Granulocytes % 0.4 % (0-4); Lymphocytes # 1.4 K/mcL (0.6-4.6); Lymphocytes % 30.2 %; Mean Corpuscular HGB Conc 30.4 g/dL (31.6-35.5); Mean Corpuscular Hemoglobin 29.2 pg (28.0-33.3); Mean Platelet Volume 10.1 fL (9.4-12.4); Monocytes # 0.6 K/mcL (0.0-1.3); Monocytes % 12.2 %; Neutrophils # 1.8 K/mcL (1.6-8.9); Red Blood Count 3.53 M/mcL (4.19-5.50); Red Cell Distribution Width 16.6 % (11.5-14.5); Segmented Neutrophils % 39.8 %; White Blood Count 4.6 K/mcL (4.3-11.1)
[2019-03-02 03:40] LABS: Platelet Count 62 K/mcL (140-400)
[2019-03-02] MEDS ORDERED: 0.9 % Sodium Chloride 250 ML IVC PRN (07:10)
[2019-03-02] MEDS ORDERED: 0.9 % Sodium Chloride 1,000 ML ONE (07:15)
[2019-03-02] MEDS ORDERED: 0.9 % Sodium Chloride 1,000 ML PRIME SCH (07:15)
[2019-03-02] MEDS: FLUoxetine 20 MG CAPSULE PO SCH (07:50)
[2019-03-02] MEDS: Venlafaxine XR (24 HR) 75 MG CAP.ER.24H PO SCH (07:50)
[2019-03-02] MEDS: Calcium Acetate 667 MG CAPSULE PO SCH ×3 (07:50→17:13)
[2019-03-02] MEDS: Aspirin Enteric Coated 81 MG Tablet PO SCH (07:50)
[2019-03-02] MEDS: Gabapentin 100 MG CAPSULE PO SCH ×3 (07:50→20:15)
[2019-03-02] MEDS: Metoprolol XL (24 HR) Succ 25 MG TAB.ER.24H PO SCH (07:50)
[2019-03-02] MEDS ORDERED: Acetaminophen 325 MG TABLET PO PRN (08:28)
[2019-03-02] MEDS ORDERED: Morphine Sulfate Oral CONC 10 MG/0.5 ML ORAL.SYG PO PRN (08:28)
[2019-03-02] MEDS ORDERED: D5% in Water 1,000 ML IVC PRN (08:48)
[2019-03-02] MEDS ORDERED: Dextrose Gel 15 GM/37.5 ML TUBE PO PRN ×2 (08:48)
[2019-03-02] MEDS ORDERED: *HR* Dextrose 50 % in Water (Syg) 50 ML SYRINGE IVP PRN (08:48)
[2019-03-02] MEDS: clonazePAM 0.5 MG TABLET PO PRN (20:14)
[2019-03-03 05:35] LABS: Hematocrit 30.5 % (37.5-50.1); Immature Granulocytes % 0.3 % (0-4)
[2019-03-03 05:37] LABS: Basophils % 0.8 %; Eosinophils # 0.7 K/mcL (0.0-0.6); Eosinophils % 18.7 %; Hemoglobin 9.2 g/dL (12.9-16.9); Immature Platelets 8.1 % (1.1-6.1); Lymphocytes # 1.1 K/mcL (0.6-4.6); Lymphocytes % 30.7 %; Mean Corpuscular HGB Conc 30.2 g/dL (31.6-35.5); Mean Corpuscular Hemoglobin 28.7 pg (28.0-33.3); Mean Platelet Volume 10.8 fL (9.4-12.4); Monocytes # 0.5 K/mcL (0.0-1.3); Monocytes % 14.4 %; Neutrophils # 1.3 K/mcL (1.6-8.9); Red Blood Count 3.21 M/mcL (4.19-5.50); Red Cell Distribution Width 16.5 % (11.5-14.5); Segmented Neutrophils % 35.1 %; White Blood Count 3.7 K/mcL (4.3-11.1)
[2019-03-03 05:48] LABS: Calcium 7.3 mg/dL (8.6-10.3); Potassium 4.1 mEq/L (3.5-5.1)
[2019-03-03 05:50] LABS: Platelet Count 44 K/mcL (140-400)
[2019-03-03] MEDS: *HR* LORazepam 2 MG/ML VIAL IVP PRN ×2 (06:03→10:03)
[2019-03-03] MEDS: FLUoxetine 20 MG CAPSULE PO SCH (07:41)
[2019-03-03] MEDS: Calcium Acetate 667 MG CAPSULE PO SCH (07:41)
[2019-03-03] MEDS: Gabapentin 100 MG CAPSULE PO SCH (07:41)
[2019-03-03] MEDS: Venlafaxine XR (24 HR) 75 MG CAP.ER.24H PO SCH (07:41)
[2019-03-03] MEDS: Metoprolol XL (24 HR) Succ 25 MG TAB.ER.24H PO SCH (07:41)
[2019-03-03] MEDS: Aspirin Enteric Coated 81 MG Tablet PO SCH (07:41)
[2019-03-03] MEDS ORDERED: *HR* FentaNYL (PF) 100 MCG/2 ML VIAL IVP PRN (10:01)
[2019-03-03] MEDS: Haloperidol Lactate 5 MG/ML VIAL IVP PRN ×2 (11:00→18:09)
[2019-03-03] MEDS: *HR* LORazepam Oral Conc 2 MG/ML SL SCH ×3 (11:55→20:45)
[2019-03-03] MEDS ORDERED: *HR* LORazepam 2 MG/ML VIAL IVP PRN (14:01)
[2019-03-04] MEDS: *HR* LORazepam Oral Conc 2 MG/ML SL SCH ×6 (00:09→20:26)
[2019-03-04] MEDS: *HR* FentaNYL PATCH 12 MCG PATCH TD SCH (16:05)
[2019-03-05] MEDS: *HR* LORazepam Oral Conc 2 MG/ML SL SCH ×6 (00:26→20:21)
[2019-03-05 19:19] VITALS: BP 148/82
[2019-03-06] MEDS: *HR* LORazepam Oral Conc 2 MG/ML SL SCH ×2 (00:38→04:52)
== END 2019-03-06 07:51 | disposition expired | DRG 313 ==
LOC: EMEROOARM 11:21 → 2ANU 11:21 → SUATTDRO 13:47 → 2ANU 14:39
PROVIDERS: ADMIT Internal Medicine; ATTEND Internal Medicine